=== PATIENT | male | born 1950 | race Native Hawaiian/Other Pacific Islander ===

== ENCOUNTER → 2019-11-22 | Outpatient (CLI) | payer MEDICARE ==
--- NOTE | 2019-11-24 05:18 | CTL ---
EXAMINATION TYPE: CT Low Dose Lung DATE OF EXAM ORDERED: 11/22/2019 HISTORY: 69-year-old male personal tobacco use. Lung cancer screening CT DLP: 135.[address] CTDI: 3.5 mGy Automated exposure control for dose reduction was used. SCREENING VISIT: Baseline COMPARISON: 02/17/2009 TECHNIQUE: Low dose computed tomography scan was performed through the chest. Coronal and sagittal re constructions were performed. Additional coronal MIP reconstruction was generated. CT DIAGNOSTIC QUALITY: Satisfactory FINDINGS: Heart normal size without pericardial effusion. Three-vessel coronary artery calcifications are prese nt. Borderline ectatic ascending aorta 3.5 cm. Ectatic upper descending thoracic aorta at 3.2 cm. Moderat e atherosclerotic arch calcifications within it. 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 There may be severe focal atherosclerotic narrowing at the origin of the left vertebral artery. No thoracic lymphadenopathy by CT size criteria. Mild biapical pleural-parenchymal scarring. Mild centrilobular emphysema. 2 mm right upper lobe pulmonary nodule, axial image 84. 3 mm anterior right midlung pulmonary nodule, axial image 190. Some scattered strandy areas of atelectasis are present. No consolidation or pleural effusion. Moderate atherosclerotic calcifications continue into the visualized upper abdominal aorta. There may be severe narrowing at the SMA origin. Bones: Degenerative changes right sternoclavicular joint. Bridging anterior endplate spondylosis lowe r thoracic spine compatible with DISH. IMPRESSION: 1. Lung RADS 2 - benign; a couple pulmonary nodules measuring up to 3 mm on baseline screening. 2. COPD with mild emphysema. 3. 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 Possible severe atherosclerotic narrowing at the SMA origin as well. 4. CAD. RECOMMENDATION: 1. Continue annual low-dose lung cancer screening CT. 2. Consider vascular surgery referral for further evaluation of the possible areas of arterial narrow ing. FOLLOW UP CT CHEST RECOMMENDATION: [address] LUNG RAD: Lung-Rad 2 Benign Appearance or Behavior
== END | disposition home or self-care (01) ==
LOC: RADCTMAIN 15:21
PROVIDERS: ATTEND Internal Medicine Hematology & Oncology
DX: J43.2 Centrilobular emphysema (principal); R91.8 Other nonspecific abnormal finding of lung field; I25.10 Atherosclerotic heart disease of native coronary artery without angina pectoris; Z87.891 Personal history of nicotine dependence

== ENCOUNTER 2020-04-26 07:49 | Day surgery (SDC) | payer MEDICARE ==
[2020-04-19 15:19] VITALS: BMI 32.0
[~2020-04-26 07:49] MED LIST: BUPIVACAINE (PF) 0.5% 4.5 ML, HYALURONIDASE, HUMAN RECOMB 150 UNIT, LIDOCAINE 2% (PF) 9... IO NR; CYCLOPENTOLATE 1% OPHTH SOLN 2 ML BTL OP NR; LACTATED RINGERS 1,000 ML IV SCH; TOBRA-DEXAMET 0.3-0.1% OPHTH DROPS 2.5 ML BTL OPHTHALMIC NR
[2020-04-26 08:15] VITALS: TEMP 97.3
[2020-04-26 08:26] LABS: Glucose,Whole Blood 118 mg/dL (75-99)
[2020-04-26] MEDS ORDERED: PROPOFOL 10 MG/ML 20 ML VIAL IV ONE (08:54)
[2020-04-26] MEDS ORDERED: EPINEPHrine (PF) 0.3 ML in BALANCED SALT IRRIG SOLN COMB2 500 ML IRRIGATION ONE (09:16)
[2020-04-26] MEDS ORDERED: BALANCED SALT IRRIG SOLN COMB2 15 ML IRRIG.SOLN INTRAOCULA ONE (09:18)
[2020-04-26] MEDS ORDERED: TRYPAN BLUE 0.06% SYRINGE 0.5 ML SYRINGE MISCELLANE ONE (09:18)
[2020-04-26] MEDS ORDERED: DUOVISC KIT (GREEN BOX) INTRAOCULA ONE (09:18)
[2020-04-26] MEDS ORDERED: BUPIVACAINE (PF) 0.5% 30 ML VIAL ONE (09:19)
[2020-04-26] MEDS ORDERED: MOXIFLOXACIN HCL 0.5% DROPS 3 ML BTL RIGHT EYE ONE (09:20)
[2020-04-26] MEDS ORDERED: TIMOLOL 0.5% OPHTH SOLN (PF) 0.2 ML DROPERETTE RIGHT EYE ONE (09:20)
--- NOTE | 2020-04-26 09:37 | P.OP ---
Date of Procedure: 04/26/20 Preoperative Diagnosis: mature cataract Postoperative Diagnosis: same Procedure(s) Performed: PIOL, OD Implants: MX60 21.00 Anesthesia: MAC Surgeon: Beto Vasquez Pathology: none sent Condition: stable Disposition: same day Indications for Procedure: blurry vision Operative Findings: no complications
[2020-04-26 09:44] VITALS: RESP 18
[2020-04-26 10:07] VITALS: BP 152/78; PULSE 67
--- NOTE | 2020-04-27 00:06 | OP ---
OPERATIVE REPORT DATE OF SURGERY: 04/26/2020 PROCEDURE: Phacoemulsification of cataract and intraocular lens implant of the right eye. PREOPERATIVE DIAGNOSIS: Mature cataract. POSTOPERATIVE DIAGNOSIS: Mature cataract. SURGEON: Beto Vasquez MD. ANESTHESIA: Retrobulbar block. ESTIMATED BLOOD LOSS: None, SPECIMEN TAKEN: None. NARRATIVE: After obtaining the appropriate consent, the patient was brought to the operating room. There, he was placed under cardiac monitoring, prepped and draped in the usual sterile manner. He was approached from his right temporal side and at the 11 o'clock position an MVR blade was used to create a paracentesis port through this opening 1% Xylocaine MPF with epinephrine 1:1000 MPF and balanced salt solution in a ratio of 1-2-1 was instilled into the anterior chamber. This was followed by placement of a small air bubble and instillation of Trypan Blue which was left in place for approximately 2 minutes. The Trypan Blue was then irrigated away and the anterior chamber was then stabilized with Viscoat. At the 9 o'clock position, a 2.5 mm keratome was used to create a self-sealing corneal flap incision. Through this opening, a cystotome was introduced to begin a continuous tear capsulorrhexis which was completed using the Utrata forceps. Hydrodissection and hydrodelineation of the lens was accomplished with balanced salt solution. Phacoemulsification lens utilizing phaco chop was accomplished in 1 minute 25.06 seconds at 29% power. Additional lidocaine epinephrine balanced salt solution was injected into the anterior chamber. This was followed by removal of the remaining cortex under irrigation and aspiration along with careful polishing of the posterior capsule in capsule vacuum. Provisc was then used to stabilize the capsular bag and a [employer]ch [employer] Lomb MX60, 21.0 diopter posterior chamber intraocular lens was then injected into the capsular bag without difficulty. The remaining viscoelastic was then removed from in and around the intraocular lens as well as the anterior chamber. The eye was then brought to normal intraocular pressure through the paracentesis port. We then received 2 drops of 0.5% timolol followed by moxifloxacin was then lightly patched and shielded in the usual manner. There were no complications from the procedure. He tolerated the procedure well and was returned to outpatient recovery in good condition. MMODL / IJN: [id number] /
[2020-04-27] MEDS ORDERED: PHENYLEPHRINE 2.5% OPHTH DRP 2ML OP NR (05:00)
== END 2020-04-26 10:13 | disposition home or self-care (01) ==
LOC: OR 07:49
PROVIDERS: ATTEND Ophthalmology
DX: E11.36 Type 2 diabetes mellitus with diabetic cataract (principal); H25.89 Other age-related cataract; E66.9 Obesity, unspecified; F17.210 Nicotine dependence, cigarettes, uncomplicated; Z79.84 Long term (current) use of oral hypoglycemic drugs; Z79.899 Other long term (current) drug therapy; Z98.890 Other specified postprocedural states; Z68.32 Body mass index [BMI] 32.0-32.9, adult
CPT/HCPCS: 66984; C1780; J3470; J2001; J0171; J2704

== ENCOUNTER 2020-05-10 08:38 | Day surgery (SDC) | payer MEDICARE ==
[2020-05-04 11:27] VITALS: BMI 31.5
[~2020-05-10 08:38] MED LIST changes: +LIDOCAINE 1% (10MG/ML) FOR IV START INTRADERMA PRN; +MOXIFLOXACIN HCL 0.5% DROPS 3 ML BTL OP ONE; +TETRACAINE 0.5% OPHTH (PF) DROPS 4 ML BTL OP ONE; +TIMOLOL 0.5% OPHTH DROPS 5 ML BTL OP ONE
[2020-05-10 08:57] VITALS: RESP 16; TEMP 97.5
[2020-05-10] MEDS: CYCLOPENTOLATE 1% OPHTH SOLN 2 ML BTL OP ONE ×3 (09:02→09:08)
[2020-05-10 09:11] LABS: Glucose,Whole Blood 113 mg/dL (75-99)
[2020-05-10] MEDS: PHENYLEPHRINE 2.5% OPHTH DRP 2ML OP NR ×3 (09:11→09:17)
[2020-05-10] MEDS ORDERED: fentaNYL (PF) 50 MCG/ML 2 ML AMP ONE (09:36)
[2020-05-10] MEDS ORDERED: MIDAZOLAM 2 MG/2 ML VIAL ONE (09:36)
[2020-05-10] MEDS ORDERED: PROPOFOL 10 MG/ML 20 ML VIAL IV ONE (09:36)
[2020-05-10] MEDS ORDERED: BALANCED SALT IRRIG SOLN COMB2 15 ML IRRIG.SOLN INTRAOCULA ONE (09:52)
[2020-05-10] MEDS ORDERED: TRYPAN BLUE 0.06% SYRINGE 0.5 ML SYRINGE INTRAOCULA ONE (09:53)
[2020-05-10] MEDS ORDERED: DUOVISC KIT (GREEN BOX) INTRAOCULA ONE (09:53)
[2020-05-10] MEDS ORDERED: BUPIVACAINE (PF) 0.5% 30 ML VIAL INTRAARTIC ONE (09:57)
[2020-05-10] MEDS ORDERED: EPINEPHrine (PF) 0.3 ML in BALANCED SALT IRRIG SOLN COMB2 500 ML IRRIGATION ONE (10:08)
--- NOTE | 2020-05-10 10:37 | P.OP ---
Date of Procedure: 05/10/20 Preoperative Diagnosis: mature cataract, left Postoperative Diagnosis: same Procedure(s) Performed: PIOL, OS Implants: MX60 20.50 Anesthesia: MAC, regional Surgeon: Beto Vasquez Pathology: none sent Condition: stable Disposition: same day Indications for Procedure: bllind Operative Findings: No complications
[2020-05-10 11:15] VITALS: BP 168/81; PULSE 61
--- NOTE | 2020-05-10 22:52 | OP ---
OPERATIVE REPORT DATE OF SURGERY: 05/10/2020. PROCEDURE: Phacoemulsification of cataract of the left eye. PREOPERATIVE DIAGNOSIS: Mature cataract, left eye. POSTOPERATIVE DIAGNOSIS: Mature cataract, left eye. SURGEON: Dr. Beto Vasquez. ANESTHESIA: Retrobulbar with monitored anesthesia care. ESTIMATED BLOOD LOSS: None. SPECIMEN TAKEN: None. NARRATIVE: After obtaining the appropriate consent, the patient was brought to the operating room. There he was placed under cardiac monitoring. Once he was in the proper position on the bed, a retrobulbar anesthetic consisting of Marcaine, lidocaine and hyaluronidase was injected into the retrobulbar space following sufficient anesthesia with the intravenous propofol. A [place] balloon was then placed on the eye and left in place for approximately 5 minutes. After the 5 minutes, the eye was then prepped and draped in the usual sterile manner. He was approached from his left temporal side, and at the 5 o'clock position an MVR blade was used to create a paracentesis port. Through this opening trypan blue was instilled into the anterior chamber and left for approximately 3 minutes. This was then irrigated away and the anterior chamber was then stabilized with Viscoat. At the 3 o'clock position, a 2.5 mm keratome was used to create a self- sealing corneal flap incision. Through this opening, a cystotome was used to begin a continuous tear capsulorrhexis which was then completed using the Utrata forceps. Careful hydrodissection of the lens from the capsular bag was performed in multiple places to assure no damage to the posterior capsule. Once the lens appeared to rotate reasonably well, phacoemulsification utilizing phaco chop was accomplished in 1 minute 9.2 seconds at 21% power. Irrigation aspiration was then introduced into the anterior chamber with the removal of the remaining cortex from the peripheral lens capsule with very careful polishing of the posterior capsule in the capsule vacuum mode. Provisc was then used to stabilize the capsular bag, and a Bausch and Lomb MX 60E 20.5 diopter posterior chamber intraocular lens was then inserted into the capsular bag without difficulty. Viscoelastic was then removed from in and around the intraocular lens as well as the anterior chamber. The eye was brought to normal intraocular pressure through the paracentesis port and the incisions were confirmed watertight. He then received 2 drops of 0.5% timolol followed by 2 drops of moxifloxacin, was then lightly patched and shielded in the usual manner. There were no complications in the procedure. He tolerated the procedure well, was returned to Outpatient Recovery in good condition. SHANTAL / ZAYRAN: [id number] /
[2020-05-11] MEDS ORDERED: PHENYLEPHRINE 2.5% OPHTH DRP 2ML OP NR (05:00)
== END 2020-05-10 11:22 | disposition home or self-care (01) ==
LOC: OR 08:38
PROVIDERS: ATTEND Ophthalmology
DX: E11.36 Type 2 diabetes mellitus with diabetic cataract (principal); H25.812 Combined forms of age-related cataract, left eye; I10 Essential (primary) hypertension; H54.3 Unqualified visual loss, both eyes; Z98.41 Cataract extraction status, right eye; Z96.1 Presence of intraocular lens; F17.210 Nicotine dependence, cigarettes, uncomplicated; E66.9 Obesity, unspecified; Z79.84 Long term (current) use of oral hypoglycemic drugs; Z79.899 Other long term (current) drug therapy; Z98.890 Other specified postprocedural states; Z68.27 Body mass index [BMI] 27.0-27.9, adult
CPT/HCPCS: 66984; C1780; J2250; J3470; J2001; J0171; J3010; J2704

== ENCOUNTER → 2021-06-28 | Outpatient (CLI) | payer MEDICARE ==
--- NOTE | 2021-06-28 15:20 | US ---
LOWER EXTREMITY VENOUS INSUFFICIENCY CLINICAL HISTORY: L97.525 NONPRESSURE CHRONIC ULCER OF OTHER PART OF. SIDE PERFORMED: Bilateral 1) Color flow is present and patency is documented in the following vessels. Common Femoral Vein Deep Femoral Vein Femoral Vein Popliteal Vein Proximal Calf Veins-not visualized Greater Saph Vein Upper Small Saph Vein 2) There is venous reflux noted at the following venous levels: Right: mild reflux seen in CFV and in the femoral vein Left:prominent lymph nodes, no reflux Non-occluding thrombus seen in right femoral vein. Scanning in the bilateral lower extremities. No acute DVT in the left lower extremity. Incomplete com pressibility along the right superficial femoral vein with fairly isoechoic material and diminished c olor flow. No luminal expansion. IMPRESSION: Age-indeterminate partial occlusive thrombus in the right superficial femoral vein. Ordering physician office made aware findings shortly after exam was completed.
== END | disposition home or self-care (01) ==
LOC: RADUSWWP 13:31
PROVIDERS: ATTEND Nurse Practitioner Family
DX: I82.411 Acute embolism and thrombosis of right femoral vein (principal); L97.525 Non-pressure chronic ulcer of other part of left foot with muscle involvement without evidence of necrosis
CPT/HCPCS: 93922; 93970

== ENCOUNTER 2024-02-15 14:16 | Inpatient (IN) | payer MEDICARE ==
--- NOTE | 2024-02-15 14:22 | ED ---
Extremity Problem HPI - General Source: patient, family, RN notes reviewed Mode of arrival: wheelchair Limitations: no limitations <Trina Conroy - Last Filed: 02/15/24 14:20> <Jack Clifton - Last Filed: 02/15/24 19:42> - General Chief complaint: Extremity Problem,Nontraumatic Stated complaint: Foot infection Time Seen by Provider: 02/15/24 14:20 - History of Present Illness Initial comments: Quick Note: This is a 73-year-old male who presents to the emergency department for a left foot infection. Patient states that he had a wound to the left foot a couple of weeks ago. This has since been getting worse and family states that the foot is starting to turn black. States that this is also becoming incre asingly painful and he is having difficulty ambulating. Not taking any antibiotics and he has not been evaluated for this. (Trina Conroy) 73-year-old male with a past medical history significant for type 2 diabetes was previously maintained on metformin 500 mg however notes he stopped 6 months ago when his doctor told him to discontinue it presenting to the ED with complaints of left second toe infection. Patient reports over the past 3 weeks has had intermittent pains and discoloration of his left second toe. He does admit that this may have been going longer as he has been distracted over the past few weeks as his was recently admitted to the hospital secondary to cancer and gallbladder issues. Does note associated intermittent subjective fever and chil ls. No chest pain shortness of breath. No other complaints at this time. (Jack Clifton) - Related Data Home Medications Medication Instructions Recorded Confirmed Ibuprofen [Motrin Ib] 400 mg PO Q6H PRN 02/15/24 02/15/24 Allergies Allergy/AdvReac Type Severity Reaction Status Date / Time No Known Allergies Allergy Verified 02/15/24 17:38 Review of Systems ROS Other: All systems not noted in ROS Statement are negative. <Trina Conroy - Last Filed: 02/15/24 14:20> ROS Other: All systems not noted in ROS Statement are negative. <Jack Clifton - Last Filed: 02/15/24 19:42> ROS Statement: Those systems with pertinent positive or pertinent negative responses have been documented in the HPI. Past Medical History Past Medical History: Diabetes Mellitus Additional Past Medical History / Comment(s): HX. of Diverticultis History of Any Multi-Drug Resistant Organisms: None Reported Past Surgical History: Hernia Repair Additional Past Surgical History / Comment(s): Hernia at age 3. Stomach surgery. Colonoscopy. Past Anesthesia/Blood Transfusion Reactions: No Reported Reaction Smoking Status: Current every day smoker - Past Family History Mother Family Medical History: No Reported History <Trina Conroy - Last Filed: 02/15/24 14:20> General Exam <Trina Conroy - Last Filed: 02/15/24 14:20> General appearance: alert, in no apparent distress Eye exam: Present: normal appearance Neck exam: Present: normal inspection Respiratory exam: Present: normal lung sounds bilaterally Cardiovascular Exam: Present: regular rate GI/Abdominal exam: Present: soft Extremities exam: Present: other (Left second toe appears gangrenous. On the medial aspect there is minimal purulent drainage. The foot does have some edema and does appear warm compared to the other. Minimal erythema.) Neurological exam: Present: alert, oriented X3 Skin exam: Present: warm, dry <Jack Clifton - Last Filed: 02/15/24 19:42> - General Exam Comments Initial Comments: Visual Physical Exam Vital signs reviewed General: Well-appearing, nontoxic, no acute distress. Head: Normocephalic, atraumatic Eyes: PERRLA, EOMI ENT: Airway patent Chest: Nonlabored breathing Skin: No visual rash, normal skin tone Neuro: Alert and oriented 3 Musculoskeletal: No gross abnormalities (Trina Conroy) Course Vital Signs 02/15/24 15:00 Temperature 98.5 F Pulse Rate 84 Respiratory 16 Rate Blood Pressure 137/79 O2 Sat by Pulse 99 Oximetry Medical Decision Making <Trina Conroy - Last Filed: 02/15/24 14:20> - Lab Data Result diagrams: 02/15/24 15:04 02/15/24 15:04 <Jack Clifton - Last Filed: 02/15/24 19:42> - Medical Decision Making I performed the QuickNote portion of this chart. Signed Trina Conroy PA-C. (Trina Conroy) Was pt. sent in by a medical professional or institution (GARRETT Cunningham, PAYER SPECIALIST, urgent care, hospital, or [place] health care facility...) When possible be specific @ -No Did you speak to anyone other than the patient for history (EMS, parent, family, police, friend...)? What history was obtained from this source @ -No Did you review nursing and triage notes (agree or disagree)? Why? @ -I reviewed and agree with nursing and triage notes Were old charts reviewed (outside hosp., previous admission, EMS record, old EKG, old radiological studies, urgent care reports/EKG's, [place] health care facility records)? Report findings @ -No old charts were reviewed Differential Diagnosis (chest pain, altered mental status, abdominal pain women, abdominal pain men, vaginal bleeding, weakness, fever, dyspnea, syncope, headache, dizziness, GI bleed, back pain, seizure, CVA, palpatations, mental health, musculoskeletal)? @ -Differential Musculoskeletal Muscular strain, contusion, ligament sprain, fracture, arthritis, septic arthritis, bursitis, cellulitis, muscle spasm, nerve compression, DVT, arterial occlusion, herpes zoster, electrolyte abnormality, tumor.... This is not meant to be in all inclusive list EKG interpreted by me (3pts min.). @ -None X-rays interpreted by me (1pt min.). @ -X-ray of the foot interpreted me which revealed no evidence of acute finding CT interpreted by me (1pt min.). @ -None done U/S interpreted by me (1pt. min.). @ -None done What testing was considered but not performed or refused? (CT, X-rays, U/S, labs)? Why? @ -None What meds were considered but not given or refused? Why? @ -None Did you discuss the management of the patient with other professionals (professionals i.e. GARRETT Cunningham, PAYER SPECIALIST, lab, RT, psych nurse, professor of social work, quality analyst/technical writer, teacher, traffic officer, binder caser)? Give summary @ -Case discussed with Tiffanie who accepts admission under [facility]. Was smoking cessation discussed for >3mins.? @ -No Was critical care preformed (if so, how long)? @ -No Were there social determinants of health that impacted care today? How? (Homelessness, low income, unemployed, alcoholism, drug addiction, transportation, low edu. Level, literacy, decrease access to med. care, detention, rehab)? @ -No Was there de-escalation of care discussed even if they declined (Discuss DNR or withdrawal of care, Hospice)? DNR status @ -No What co-morbidities impacted this encounter? (DM, HTN, Smoking, COPD, CAD, Cancer, CVA, ARF, Chemo, Hep., AIDS, mental health diagnosis, sleep apnea, morbid obesity)? @ -Type 2 diabetes Was patient admitted / discharged? Hospital course, mention meds given and route, prescriptions, significant lab abnormalities, going to OR and other pertinent info. @ -Admission 73-year-old male presenting to the ED with complaints of left second toe infection. On exam, does appear gangrenous. Laboratory studies reviewed. CBC unremarkable. Chemistry panel significant for an elevated blood glucose at 283. CRP elevated at 3.5. Lactic acid 2. Wound cultures obtained. Blood cultures obtained as well. Patient will be started on IV antibiotics and admitted with consult to vascular surgery. Plan of care discussed with patient and family who are in agreement. Undiagnosed new problem with uncertain prognosis? @ -No Drug Therapy requiring intensive monitoring for toxicity (Heparin, Nitro, Insulin, Cardizem)? @ -No Were any procedures done? @ -No Diagnosis/symptom? @ -Left second toe infection Acute, or Chronic, or Acute on Chronic? @ -Acute Uncomplicated (without systemic symptoms) or Complicated (systemic symptoms)? @ -Complicated Side effects of treatment? @ -No Exacerbation, Progression, or Severe Exacerbation? @ -No Poses a threat to life or bodily function? How? (Chest pain, [place], [place], pneumonia, PE, COPD, DKA, ARF, appy, cholecystitis, CVA, Diverticulitis, Homicidal, Suicidal, threat to staff... and all critical care pts) @ -Yes (Jack Clifton) - Lab Data Lab Results 02/15/24 02/15/24 02/15/24 Range/Units 15:04 15:04 15:04 WBC 10.6 (3.8-10.6) k/uL RBC 5.19 (4.30-5.90) m/uL Hgb 16.8 (13.0-17.5) gm/dL Hct 51.9 (39.0-53.0) % MCV 100.0 (80.0-100.0) fL MCH 32.3 (25.0-35.0) pg MCHC 32.3 (31.0-37.0) g/dL RDW 11.9 (11.5-15.5) % Plt Count 217 (150-450) k/uL MPV 10.0 Neutrophils % 75 % Lymphocytes % 17 % Monocytes % 6 % Eosinophils % 1 % Basophils % 1 % Neutrophils # 7.9 H (1.3-7.7) k/uL Lymphocytes # 1.8 (1.0-4.8) k/uL Monocytes # 0.6 (0-1.0) k/uL Eosinophils # 0.1 (0-0.7) k/uL Basophils # 0.1 (0-0.2) k/uL Sodium 135 L (137-145) mmol/L Potassium 4.4 (3.5-5.1) mmol/L Chloride 102 (98-107) mmol/L Carbon Dioxide 26 (22-30) mmol/L Anion Gap 7 mmol/L BUN 15 (9-20) mg/dL Creatinine 0.71 (0.66-1.25) mg/dL Est GFR (CKD-EPI)AfAm >90 (>60 ml/min/1.73 sqM) Est GFR (CKD-EPI)NonAf >90 (>60 ml/min/1.73 sqM) Glucose 283 H (74-99) mg/dL Plasma Lactic Acid Usama 2.0 (0.7-2.0) mmol/L Calcium 9.1 (8.4-10.2) mg/dL Total Bilirubin 1.0 (0.2-1.3) mg/dL AST 23 (17-59) U/L ALT 19 (4-49) U/L Alkaline Phosphatase 116 (38-126) U/L C-Reactive Protein 3.5 H (<1.0) mg/dL Total Protein 7.4 (6.3-8.2) g/dL Albumin 4.0 (3.5-5.0) g/dL Disposition <Trina Conroy - Last Filed: 02/15/24 14:20> Time of Disposition: 19:00 <Jack Clifton - Last Filed: 02/15/24 19:42> Clinical Impression: Toe infection Disposition: ADMITTED IP TO THIS HOSP Condition: Good Referrals: Sudheer Lubin MD [Primary Care Provider] - 1-2 days
--- NOTE | 2024-02-15 16:01 | XR ---
EXAMINATION TYPE: XR foot complete LT DATE OF EXAM: 02/15/2024 3:41 PM CLINICAL INDICATION:Male, 73 years old with history of Infection; [facility] COMPARISON: None TECHNIQUE: XR foot complete LT examined in the AP, oblique, and lateral projections. FINDINGS: Soft tissue swelling throughout the foot most pronounced on the dorsal aspect on lateral vi ew. No evidence for osseous erosion. No evidence of any acute osseous pathology. Atherosclerosis of t he arterial vasculature. IMPRESSION: 1. Soft tissue swelling without evidence of acute fracture. No evidence for osseous erosion. 2. Multifocal degeneration changes throughout the joints of the foot.
[2024-02-15 17:04] LABS: Basophils # (A) 0.1 k/uL (0-0.2); Basophils % (A) 1 %; Eosinophils # (A) 0.1 k/uL (0-0.7); Eosinophils % (A) 1 %; HCT 51.9 % (39.0-53.0); HGB 16.8 gm/dL (13.0-17.5); Lymphocytes # (A) 1.8 k/uL (1.0-4.8); Lymphocytes % (A) 17 %; MCH 32.3 pg (25.0-35.0); MCHC 32.3 g/dL (31.0-37.0); Monocytes # (A) 0.6 k/uL (0-1.0); Monocytes % (A) 6 %; Neutrophils # (A) 7.9 k/uL (1.3-7.7); Neutrophils % (A) 75 %; Platelet Count 217 k/uL (150-450); RBC 5.19 m/uL (4.30-5.90); RDW 11.9 % (11.5-15.5); WBC 10.6 k/uL (3.8-10.6)
[2024-02-15 17:18] LABS: ALT 19 U/L (4-49); AST 23 U/L (17-59); African American GFR (CKD) >90 (>60 ml/min/1.73 sqM); Alkaline Phosphatase 116 U/L (38-126); Anion Gap 7 mmol/L; Blood Urea Nitrogen 15 mg/dL (9-20); C Reactive Protein 3.5 mg/dL (<1.0); Calcium 9.1 mg/dL (8.4-10.2); Carbon Dioxide 26 mmol/L (22-30); Chloride 102 mmol/L (98-107); Glucose 283 mg/dL (74-99); Non-African American GFR(CKD) >90 (>60 ml/min/1.73 sqM); Potassium 4.4 mmol/L (3.5-5.1); Sodium 135 mmol/L (137-145); Total Protein 7.4 g/dL (6.3-8.2)
[2024-02-15] MEDS ORDERED: VANCOMYCIN IV PER PHARMACY 1 EACH MISC MISCELLANE PRN (19:29)
[2024-02-15] MEDS ORDERED: NALOXONE 0.4 MG/ML 1 ML VIAL IV PRN (19:42)
[2024-02-15] MEDS ORDERED: ACETAMINOPHEN TAB 325 MG TAB PO PRN (19:42)
[2024-02-15] MEDS ORDERED: DEXTROSE 50% SYRINGE 50 ML IVP PRN ×2 (19:44)
[2024-02-15 20:50] LABS: INR 1.1 (<1.2); Partial Thromboplastin Time 25.2 sec (22.0-30.0); Prothrombin Time 11.6 sec (10.0-12.5)
[2024-02-15] MEDS: VANCOMYCIN 1,500 MG in SODIUM CHLORIDE 0.9% 500 ML 500 ML IVPB ONE (21:27)
[2024-02-15] MEDS: SODIUM CHLORIDE 0.9% 1,000 ML IV SCH (21:28)
[2024-02-15 21:40] LABS: Glucose,Whole Blood 227 mg/dL (70-110)
[2024-02-15] MEDS: INSULIN ASPART (NovoLOG) 100 UNIT/ML VIAL SQ SCH (21:42)
[2024-02-15 23:12] LABS: Erythrocyte Sedimentation Rate 64 mm/Hr (0-20)
[2024-02-16] MEDS: PIPERACILLIN-TAZOBACTAM 3.375 GM in SODIUM CHLORIDE 0.9% 100 ML IVPB SCH ×2 (02:16→08:20)
[2024-02-16 07:03] LABS: Glucose,Whole Blood 225 mg/dL (70-110)
[2024-02-16] MEDS ORDERED: DEXTROSE 50% SYRINGE 50 ML IVP PRN ×2 (10:17)
--- NOTE | 2024-02-16 10:48 | P.GSCN ---
History of Present Illness Consult date: 02/16/24 Reason for Consult: Left second toe infection Requesting physician: Jack Clifton History of present illness: This is a pleasant 73-year-old male who presented to the emergency department yesterday evening with concerns for infected left second toe. He has a past medical history including type 2 diabetes mellitus and nicotine dependence. He states that he noticed a wound on his second toe about 2 to 3 weeks ago and it has progressively gotten worse and turned black. There is drainage and odor. He denies any fevers, chills, or bodyaches. Denies any shortness of breath, chest pain or abdominal pain. He has been afebrile. He has been started on IV antibiotics. He denies any injury to the toe that he recalls. No previous history of diabetic ulcers. He states that he normally walks about 2 miles a day without any pain in his lower extremities. He is sad quite a bit of pain with the left toe and has not been able to walk easily for the last few days. Review of Systems A 14 point review systems was completed all pertinent positives and negatives as stated in the HPI. Past Medical History Past Medical History: Diabetes Mellitus Additional Past Medical History / Comment(s): HX. of Diverticultis History of Any Multi-Drug Resistant Organisms: None Reported Past Surgical History: Hernia Repair Additional Past Surgical History / Comment(s): Hernia at age 3. Stomach surgery. Colonoscopy. Past Anesthesia/Blood Transfusion Reactions: No Reported Reaction Past Psychological History: No Psychological Hx Reported Smoking Status: Current every day smoker Past Alcohol Use History: None Reported Additional Past Alcohol Use History / Comment(s): Smokes approx. 1 1/2ppd. Past Drug Use History: None Reported - Past Family History Mother Family Medical History: No Reported History Medications and Allergies Home Medications Medication Instructions Recorded Confirmed Type Ibuprofen [Motrin Ib] 400 mg PO Q6H PRN 02/15/24 02/15/24 History Allergies Allergy/AdvReac Type Severity Reaction Status Date / Time No Known Allergies Allergy Verified 02/15/24 17:38 Surgical - Exam Vital Signs Temp Pulse Resp BP Pulse Ox 98.5 F 84 16 137/79 99 02/15/24 15:00 02/15/24 15:00 02/15/24 15:00 02/15/24 15:00 02/15/24 15:00 General appearance: The patient is alert, oriented, appears in no acute distress. HET: Head is normocephalic and atraumatic. Pupils are equal and reactive. Neck: Supple. Heart: Regular. Lungs: Equal expansion, normal respiratory effort. Abdomen: Soft, nontender, nondistended. Extremities: Palpable bilateral femoral pulses. Left foot with swelling, second toe with gangrene, foul odor, serosanguineous drainage. Difficult to palpate DP pulses. Bilateral lower extremities warm to the touch with good capillary refill. Multiphasic DP and PT signals. Neurological: No focal deficits. Strength and sensation are grossly intact. Results - Labs 02/15/24 15:04 02/15/24 15:04 Abnormal Lab Results - Last 24 Hours (Table) 02/15/24 02/15/24 02/15/24 Range/Units 15:04 15:04 21:37 Neutrophils # 7.9 H (1.3-7.7) k/uL ESR 64 H (0-20) mm/Hr Sodium 135 L (137-145) mmol/L Glucose 283 H (74-99) mg/dL POC Glucose (mg/dL) 227 H (70-110) mg/dL C-Reactive Protein 3.5 H (<1.0) mg/dL 02/16/24 Range/Units 07:02 Neutrophils # (1.3-7.7) k/uL ESR (0-20) mm/Hr Sodium (137-145) mmol/L Glucose (74-99) mg/dL POC Glucose (mg/dL) 225 H (70-110) mg/dL C-Reactive Protein (<1.0) mg/dL Diabetes panel 02/15/24 Range/Units 15:04 Sodium 135 L (137-145) mmol/L Potassium 4.4 (3.5-5.1) mmol/L Chloride 102 (98-107) mmol/L Carbon Dioxide 26 (22-30) mmol/L BUN 15 (9-20) mg/dL Creatinine 0.71 (0.66-1.25) mg/dL Glucose 283 H (74-99) mg/dL Calcium 9.1 (8.4-10.2) mg/dL AST 23 (17-59) U/L ALT 19 (4-49) U/L Alkaline Phosphatase 116 (38-126) U/L Total Protein 7.4 (6.3-8.2) g/dL Albumin 4.0 (3.5-5.0) g/dL Calcium panel 02/15/24 Range/Units 15:04 Calcium 9.1 (8.4-10.2) mg/dL Albumin 4.0 (3.5-5.0) g/dL Pituitary panel 02/15/24 Range/Units 15:04 Sodium 135 L (137-145) mmol/L Potassium 4.4 (3.5-5.1) mmol/L Chloride 102 (98-107) mmol/L Carbon Dioxide 26 (22-30) mmol/L BUN 15 (9-20) mg/dL Creatinine 0.71 (0.66-1.25) mg/dL Glucose 283 H (74-99) mg/dL Calcium 9.1 (8.4-10.2) mg/dL Adrenal panel 02/15/24 Range/Units 15:04 Sodium 135 L (137-145) mmol/L Potassium 4.4 (3.5-5.1) mmol/L Chloride 102 (98-107) mmol/L Carbon Dioxide 26 (22-30) mmol/L BUN 15 (9-20) mg/dL Creatinine 0.71 (0.66-1.25) mg/dL Glucose 283 H (74-99) mg/dL Calcium 9.1 (8.4-10.2) mg/dL Total Bilirubin 1.0 (0.2-1.3) mg/dL AST 23 (17-59) U/L ALT 19 (4-49) U/L Alkaline Phosphatase 116 (38-126) U/L Total Protein 7.4 (6.3-8.2) g/dL Albumin 4.0 (3.5-5.0) g/dL - Imaging Comments: Left foot x-ray reports soft tissue swelling without evidence of acute fracture no evidence for osseous erosion. Multi focal degeneration changes throughout the joints of the foot. Assessment and Plan Assessment: 1. Gangrene left second toe 2. Diabetes mellitus Plan: 1. Continue IV antibiotics 2. N.p.o. after midnight 3. Plan for left second toe amputation tomorrow 4. Arterial ultrasound ordered bilateral lower extremities Thank you for this consultation, we will continue to follow. The impression and plan of care has been dictated as directed. Dr. June I performed a history and examination of this patient, discussed the same with the dictator. I agree with the dictator's note ,documented as a scribe. Any additional findings or plans will be noted.
[2024-02-16 11:45] LABS: Glucose,Whole Blood 271 mg/dL (70-110)
[2024-02-16 11:52] LABS: African American GFR (CKD) >90 (>60 ml/min/1.73 sqM); Anion Gap 4 mmol/L; Blood Urea Nitrogen 12 mg/dL (9-20); Calcium 8.6 mg/dL (8.4-10.2); Carbon Dioxide 24 mmol/L (22-30); Chloride 105 mmol/L (98-107); Glucose 263 mg/dL (74-99); Non-African American GFR(CKD) >90 (>60 ml/min/1.73 sqM); Potassium 4.4 mmol/L (3.5-5.1); Sodium 133 mmol/L (137-145)
[2024-02-16] MEDS: VANCOMYCIN 1,500 MG in SODIUM CHLORIDE 0.9% 500 ML 500 ML IVPB SCH (11:55)
[2024-02-16] MEDS ORDERED: INSULIN ASPART (NovoLOG) 100 UNIT/ML VIAL SQ ONE (12:30)
--- NOTE | 2024-02-16 13:26 | P.HPIM ---
History of Present Illness H&P Date: 02/16/24 History of present illness; patient heydi 73-year-old gentleman with past medical history significant for diabetes mellitus not on any medication brought to the ER because of left foot infection. Patient stated that he was all right 2 weeks ago when he sustained an injury to his left foot. Patient noticed there was a wound on his second toe, patient did not see any initial medical health as he wa s under a lot of stress at home because of his being sick. Patient noticed that over the last few weeks his foot started turning black. Patient also having fevers and chills. Patient was having a lot of pain in his left foot as well. Because of the symptoms, patient came to the ER Initial lab work done in the ER showed WBC 10.6, hemoglobin 16.8, platelet count 217, sodium 135, potassium 4.4, BUN 15, creatinine 0.7, glucose 283, HbA1c level of 11.9 lactate 2, calcium 9.1, bilirubin 1, AST 23, ALT 19, CRP 3.5 X-ray left foot done showed soft tissue swelling without evidence of acute fra cture. Patient admitted to internal medicine service REVIEW OF SYSTEMS: CONSTITUTIONAL: As mentioned above HEENT: No recent visual problems or hearing problems. Denied any sore throat. CARDIOVASCULAR: No chest pain, orthopnea, PND, no palpitations, no syncope. PULMONARY: No shortness of breath, no cough, no hemoptysis. GASTROINTESTINAL: No diarrhea, no nausea, no vomiting, no abdominal pain. NEUROLOGICAL: No headaches, no weakness, no numbness. HEMATOLOGICAL: Denies any bleeding or petechiae. GENITOURINARY: Denies any burning micturition, frequency, or urgency. MUSCULOSKELETAL/RHEUMATOLOGICAL: As mentioned above ENDOCRINE: Denies any polyuria or polydipsia. The rest of the 14-point review of systems is negative. PHYSICAL EXAMINATION: GENERAL: The patient is alert and oriented x3, not in any acute distress. Well developed, well nourished. HEENT: Pupils are round and equally reacting to light. EOMI. No scleral icterus. No conjunctival pallor. Normocephalic, atraumatic. No pharyngeal erythema. No thyromegaly. CARDIOVASCULAR: S1 and S2 present. No murmurs, rubs, or gallops. PULMONARY: Chest is clear to auscultation, no wheezing or crackles. ABDOMEN: Soft, nontender, nondistended, normoactive bowel sounds. No palpable organomegaly. MUSCULOSKELETAL: Left foot second toe blackening, surrounding erythema seen EXTREMITIES: No cyanosis, clubbing, or pedal edema. NEUROLOGICAL: Gross neurological examination did not reveal any focal deficits. SKIN: No rashes. Assessment and plan Cellulitis of left foot Gangrene of left second toe Poorly controlled diabetes mellitus with an HbA1c of 11.9 Monitor vital signs Monitor CBC Monitor CMP Continue telemetry monitoring Blood cultures Ordered wound cultures continue IV fluids Start broad-spectrum antibiotic with IV Zosyn and vancomycin Monitor blood sugar levels, start sliding scale insulin. Will start patient on Levemir 5 units twice a day, adjust dose as needed Consult vascular surgery Consult ID Labs and medication were reviewed.. Continue same treatment. Continue with symptomatic treatment. Resume home medication. Monitor labs and vitals. DVT and GI prophylaxis. Further recommendations as per clinical course of the patient Dictation was produced using [employer] dictation software. please excuse any grammatical, word or spelling errors. Past Medical History Past Medical History: Diabetes Mellitus Additional Past Medical History / Comment(s): HX. of Diverticultis History of Any Multi-Drug Resistant Organisms: None Reported Past Surgical History: Hernia Repair Additional Past Surgical History / Comment(s): Hernia at age 3. Stomach surgery. Colonoscopy. Past Anesthesia/Blood Transfusion Reactions: No Reported Reaction Past Psychological History: No Psychological Hx Reported Smoking Status: Current every day smoker Past Alcohol Use History: None Reported Additional Past Alcohol Use History / Comment(s): Smokes approx. 1 1/2ppd. Past Drug Use History: None Reported - Past Family History Mother Family Medical History: No Reported History Medications and Allergies Home Medications Medication Instructions Recorded Confirmed Type Ibuprofen [Motrin Ib] 400 mg PO Q6H PRN 02/15/24 02/15/24 History Allergies Allergy/AdvReac Type Severity Reaction Status Date / Time No Known Allergies Allergy Verified 02/15/24 17:38 Physical Exam Vitals: Vital Signs Temp Pulse Pulse Resp BP BP Pulse Ox 02/16/24 07:01 98.1 F 74 16 137/73 98 02/16/24 02:00 98.3 F 83 18 160/88 98 02/16/24 00:21 89 18 143/86 99 02/15/24 21:39 98.8 F 80 16 138/86 97 02/15/24 20:32 98.2 F 87 14 132/79 96 02/15/24 15:00 98.5 F 84 16 137/79 99 Intake and Output 02/15/24 02/16/24 02/16/24 22:59 06:59 14:59 Intake Total 240 Balance 240 Intake: Oral 240 Other: Voiding Method Toilet # Voids 2 Weight 79.379 kg 79.379 kg Results CBC & Chem 7: 02/15/24 15:04 02/16/24 10:59 Labs: Abnormal Lab Results - Last 24 Hours (Table) 02/15/24 02/15/24 02/15/24 Range/Units 15:04 15:04 20:24 Neutrophils # 7.9 H (1.3-7.7) k/uL ESR 64 H (0-20) mm/Hr Sodium 135 L (137-145) mmol/L Glucose 283 H (74-99) mg/dL POC Glucose (mg/dL) (70-110) mg/dL Hemoglobin A1c 11.9 H (<=6.0) % C-Reactive Protein 3.5 H (<1.0) mg/dL 02/15/24 02/16/24 Range/Units 21:37 07:02 Neutrophils # (1.3-7.7) k/uL ESR (0-20) mm/Hr Sodium (137-145) mmol/L Glucose (74-99) mg/dL POC Glucose (mg/dL) 227 H 225 H (70-110) mg/dL Hemoglobin A1c (<=6.0) % C-Reactive Protein (<1.0) mg/dL Thrombosis Risk Factor Assmnt - Choose All That Apply Any of the Below Risk Factors Present?: No Each Risk Factor Represents 2 Points: Age 61-74 years Thrombosis Risk Factor Assessment Total Risk Factor Score: 2 Thrombosis Risk Factor Assessment Level: Low Risk
[2024-02-16 16:03] VITALS: BMI 25.8
[2024-02-16 17:21] LABS: Glucose,Whole Blood 287 mg/dL (70-110)
--- NOTE | 2024-02-16 19:29 | US ---
EXAMINATION TYPE: US arterial LE single level DATE OF EXAM: 02/16/2024 11:27 AM CLINICAL INDICATION: Male, 73 years old with history of Gangrene toe, nonpalpable DP pulses; Gangrene left 2nd toe. History of: Smoker: Current Smoker Hypertension: Yes Diabetic: Yes Hyperlipidemia: No TIA/CVA: No Previous Vascular Surgery: No CAD: No CT: No Vascular Ulcers: No Claudication: No Gangrene: Right Doppler Waveforms: Right: Biphasic and monophasic Left: Biphasic and monophasic Right Brachial Pressure: 141 Left Brachial Pressure: Deferred due to IV Ankle-Brachial Indices: Right: 1.0 Left: Unable to obtain due to CNO PT and DP (Vessel hardening > 1.4; Normal 0.9 - 1.4, Moderate 0.7 - 0.9, Severe 0.5-0.7) Toe Brachial Indices: Right: 0.3 Left: 0.1 IMPRESSION: Toe brachial indices suggestive of severe bilateral peripheral vascular disease. Right ankle-brachial index within normal limits. Noncompressible left vessels.
[2024-02-16 20:05] LABS: Glucose,Whole Blood 358 mg/dL (70-110)
[2024-02-16] MEDS: INSULIN DETEMIR (LEVEMIR) 100 UNIT/ML SYR SQ SCH (20:14)
[2024-02-17] MEDS: AMPICILLIN-SULBACTAM 3 GM in SODIUM CHLORIDE 0.9% 100 ML IVPB SCH (00:03)
--- NOTE | 2024-02-17 06:51 | P.CONS ---
History of Present Illness - Reason for Consult Consult date: 02/16/24 Abscess of the left foot Requesting physician: Jett Elmore - Chief Complaint Left second toe discoloration and drainage x weeks - History of Present Illness Patient is a 73-year-old male with past medical significant for diabetes mellitus diverticulitis current everyday smoker presenting to the hospital yesterday afternoon for left second toe infection patient mention he is dealing with the left second toe ulcer for almost 4 weeks. Patient has been trying to heal itself at home however the patient noticed to have worsening swelling redness foul-smelling drainage and discoloration of the left second toe for the patient to present to the hospital patient denies high-grade fever or any chills has been complaining of pain to the left second toe to be throbbing moderate to severe intensity he was some radiation to the left dorsal aspect of the left foot with associated swelling redness and some foul-smelling drainage patient on presentation to the hospital was afebrile he was not tachycardic hypotensive or hypoxic patient did have white count of 10.6 creatinine 0.71 liver enzymes are normal CRP is 3.5 liver blood cultures were obtained patient was placed on vancomycin and Zosyn infectious disease was consulted for further management of antibiotic therapy patient did have x-ray of the left foot which did shows soft tissue swelling without evidence for acute fracture no evidence of any bony erosion multifocal degenerative changes Review of Systems Positive point and negatives has been mentioned in the HPI, complete review of systems was performed and all other systems are negative Past Medical History Past Medical History: Diabetes Mellitus Additional Past Medical History / Comment(s): HX. of Diverticultis History of Any Multi-Drug Resistant Organisms: None Reported Past Surgical History: Hernia Repair Additional Past Surgical History / Comment(s): Hernia at age 3. Stomach surgery. Colonoscopy. Past Anesthesia/Blood Transfusion Reactions: No Reported Reaction Past Psychological History: No Psychological Hx Reported Smoking Status: Current every day smoker Past Alcohol Use History: None Reported Additional Past Alcohol Use History / Comment(s): Smokes approx. 1 1/2ppd. Past Drug Use History: None Reported - Past Family History Mother Family Medical History: No Reported History Medications and Allergies Home Medications Medication Instructions Recorded Confirmed Type Ibuprofen [Motrin Ib] 400 mg PO Q6H PRN 02/15/24 02/15/24 History Insulin Detemir (Levemir) [Levemir] 5 unit SQ BID@0700,2100 #10 ml 02/19/24 Rx ceFAZolin [Kefzol] 2 gm IVP Q8HR #42 each 02/19/24 Rx Allergies Allergy/AdvReac Type Severity Reaction Status Date / Time No Known Allergies Allergy Verified 02/15/24 17:38 Physical Exam Vitals: Vital Signs Temp Pulse Pulse Resp BP BP Pulse Ox 02/16/24 12:41 98.2 F 68 16 147/85 99 02/16/24 07:01 98.1 F 74 16 137/73 98 02/16/24 02:00 98.3 F 83 18 160/88 98 02/16/24 00:21 89 18 143/86 99 02/15/24 21:39 98.8 F 80 16 138/86 97 02/15/24 20:32 98.2 F 87 14 132/79 96 Intake and Output 02/16/24 02/16/24 02/16/24 06:59 14:59 22:59 Intake Total 240 Balance 240 Intake: Oral 240 Other: Voiding Method Toilet # Voids 2 1 # Bowel Movements 1 Weight 79.379 kg 79.379 kg GENERAL DESCRIPTION: Elderly male lying in bed, no distress. No tachypnea or accessory muscle of respiration use. HEENT: Shows Pallor , no scleral icterus. Oral mucous membrane is dry. No pharyngeal erythema or thrush NECK: Trachea central, no thyromegaly. LUNGS: Unlabored breathing. Clear to auscultation anteriorly. No wheeze or crackle. HEART: S1, S2, regular rate and rhythm. No loud murmur ABDOMEN: Soft, no tenderness , guarding or rigidity, no organomegaly EXTREMITIES: No edema of feet. Left second toe necrotic with associated swelling redness and foul-smelling drainage SKIN: No rash, no masses palpable. NEUROLOGICAL: The patient is awake, alert, oriented x3, mood and affect normal. Results CBC & Chem 7: 02/18/24 07:34 02/18/24 07:34 Labs: Abnormal Lab Results - Last 24 Hours (Table) 02/15/24 02/15/24 02/15/24 Range/Units 15:04 15:04 20:24 Neutrophils # 7.9 H (1.3-7.7) k/uL ESR 64 H (0-20) mm/Hr Sodium 135 L (137-145) mmol/L Glucose 283 H (74-99) mg/dL POC Glucose (mg/dL) (70-110) mg/dL Hemoglobin A1c 11.9 H (<=6.0) % C-Reactive Protein 3.5 H (<1.0) mg/dL 02/15/24 02/16/24 02/16/24 Range/Units 21:37 07:02 10:59 Neutrophils # (1.3-7.7) k/uL ESR (0-20) mm/Hr Sodium 133 L (137-145) mmol/L Glucose 263 H (74-99) mg/dL POC Glucose (mg/dL) 227 H 225 H (70-110) mg/dL Hemoglobin A1c (<=6.0) % C-Reactive Protein (<1.0) mg/dL 02/16/24 Range/Units 11:43 Neutrophils # (1.3-7.7) k/uL ESR (0-20) mm/Hr Sodium (137-145) mmol/L Glucose (74-99) mg/dL POC Glucose (mg/dL) 271 H (70-110) mg/dL Hemoglobin A1c (<=6.0) % C-Reactive Protein (<1.0) mg/dL Assessment and Plan (1) Diabetic infection of left foot Status: Acute Code(s): E11.628 - TYPE 2 DIABETES MELLITUS WITH OTHER SKIN COMPLICATIONS; L08.9 - LOCAL INFECTION OF THE SKIN AND SUBCUTANEOUS TISSUE, UNSP SNOMED Code(s): 82011234 (2) Gangrene of toe of left foot Status: Acute Code(s): I96 - GANGRENE, NOT ELSEWHERE CLASSIFIED SNOMED Code(s): 92901748959451138 (3) Type 2 diabetes mellitus with foot ulcer Status: Acute Code(s): E11.621 - TYPE 2 DIABETES MELLITUS WITH FOOT ULCER; L97.509 - NON-PRESSURE CHRONIC ULCER OTH PRT UNSP FOOT W UNSP SEVERITY SNOMED Code(s): 921359134 Plan: 1patient presented to hospital with extensive left second toe diabetic foot infection that has been going on for almost 4 weeks before presentation to the hospital with a foul-smelling drainage will need to cover for the polymicrobial mariano usually associated with infection in this patient has not been on any antibiotic in the recent past could be MSSA strep for related mariano 2-vancomycin pharmacy to dose target trough of 15 while watching kidney function and Vanco trough closely however due to risk of nephrotoxicity switch Zosyn to Unasyn 3-possible amputation per vascular surgery tomorrow, deep culture should be obtained We will follow on clinical condition and cultures to further adjust medication if needed Thank you for this consultation we will follow the patient along with you Dictation was produced using [employer] dictation software. please excuse any gramm atical, word or spelling errors. Time with Patient: Greater than 30
[2024-02-17 07:03] LABS: Glucose,Whole Blood 192 mg/dL (70-110)
[2024-02-17 09:19] LABS: African American GFR (CKD) >90 (>60 ml/min/1.73 sqM); Non-African American GFR(CKD) >90 (>60 ml/min/1.73 sqM)
[2024-02-17] MEDS: IV FLUID CONTINUATION 1,000 ML IV ONE (10:56)
[2024-02-17 11:19] LABS: Glucose,Whole Blood 188 mg/dL (70-110)
[2024-02-17] MEDS: LACTATED RINGERS 1,000 ML BAG IV STA (11:20)
[2024-02-17] MEDS: ONDANSETRON 4 MG/2 ML VIAL IVP PRN (11:21)
[2024-02-17] MEDS ORDERED: PROPOFOL 10 MG/ML 20 ML VIAL IV ONE (11:40)
[2024-02-17] MEDS ORDERED: fentaNYL (PF) 50 MCG/ML 2 ML AMP ONE (11:40)
[2024-02-17] MEDS ORDERED: MIDAZOLAM 2 MG/2 ML VIAL ONE (11:40)
[2024-02-17] MEDS ORDERED: KETAMINE HCL IN 0.9 % NACL 50 MG/5 ML SYRINGE ONE (11:40)
[2024-02-17] MEDS: LIDOCAINE 1% INJ 10MG/ML (20 ML MDV) SQ ONE ×2 (12:09)
--- NOTE | 2024-02-17 12:17 | P.PN ---
Subjective Progress Note Date: 02/17/24 patient heydi 73-year-old gentleman with past medical history significant for diabetes mellitus not on any medication brought to the ER because of left foot infection. Patient stated that he was all right 2 weeks ago when he sustained an injury to his left foot. Patient noticed there was a wound on his second toe, patient did not see any initial medical health as he was under a lot of stress at home because of his being sick. Patient noticed that over the last few weeks his foot started turning black. Patient also having fevers and chills. Patient was having a lot of pain in his left foot as well. Because of the symptoms, patient came to the ER Initial lab work done in the ER showed WBC 10.6, hemoglobin 16.8, platelet count 217, sodium 135, potassium 4.4, BUN 15, creatinine 0.7, glucose 283, HbA1c level of 11.9 lactate 2, calcium 9.1, bilirubin 1, AST 23, ALT 19, CRP 3.5 X-ray left foot done showed soft tissue swelling without evidence of acute fracture. Patient admitted to internal medicine service 02/16. Patient seen and examined. Currently n.p.o., going for surgery today. Wi [address] at the bedside, discussed with them in detail and the need for him to be more compliant with his blood glucose control. REVIEW OF SYSTEMS: CONSTITUTIONAL: No fever, no malaise,. CARDIOVASCULAR: No chest pain, no palpitations, no syncope. PULMONARY: No shortness of breath, no cough, GASTROINTESTINAL: No diarrhea, no nausea, no vomiting, no abdominal pain. NEUROLOGICAL: No headaches, no weakness, PHYSICAL EXAMINATION: GENERAL: The patient is alert and oriented x3, not in any acute distress. Well developed, well nourished. HEENT: Pupils are round and equally reacting to light. EOMI. No scleral icterus. No conjunctival pallor. Normocephalic, atraumatic. No pharyngeal erythema. No t hyromegaly. CARDIOVASCULAR: S1 and S2 present. No murmurs, rubs, or gallops. PULMONARY: Chest is clear to auscultation, no wheezing or crackles. ABDOMEN: Soft, nontender, nondistended, normoactive bowel sounds. No palpable organomegaly. MUSCULOSKELETAL: No joint swelling or deformity. EXTREMITIES: No cyanosis, clubbing, or pedal edema. NEUROLOGICAL: Gross neurological examination did not reveal any focal deficits. SKIN: No rashes. Assessment and plan GENERAL: The patient is alert and oriented x3, not in any acute distress. Well developed, well nourished. HEENT: Pupils are round and equally reacting to light. EOMI. No scleral icterus. No conjunctival pallor. Normocephalic, atraumatic. No pharyngeal erythema. No thyromegaly. CARDIOVASCULAR: S1 and S2 present. No murmurs, rubs, or gallops. PULMONARY: Chest is clear to auscultation, no wheezing or crackles. ABDOMEN: Soft, nontender, nondistended, normoactive bowel sounds. No palpable organomegaly. MUSCULOSKELETAL: Left foot second toe blackening, surrounding erythema seen EXTREMITIES: No cyanosis, clubbing, or pedal edema. NEUROLOGICAL: Gross neurological examination did not reveal any focal deficits. SKIN: No rashes. Assessment and plan Cellulitis of left foot Gangrene of left second toe Poorly controlled diabetes mellitus with an HbA1c of 11.9 Monitor vital signs Monitor CBC Monitor CMP Continue telemetry monitoring Follow-up on blood cultures Follow-up on wound cultures continue IV fluids Continue IV Unasyn and vancomycin Monitor blood sugar levels, start sliding scale insulin. Continue Levemir 5 units twice a day, adjust dose as needed Vascular surgery following, planning left second toe amputation today Infectious disease following Labs and medication were reviewed.. Continue same treatment. Continue with symptomatic treatment. Resume home medication. Monitor labs and vitals. DVT and GI prophylaxis. Further recommendations as per clinical course of the patient Dictation was produced using [employer] dictation software. please excuse any grammatical, word or spelling errors. Objective - Vital Signs Vital signs: Vital Signs Temp 98.4 F 02/17/24 07:00 Pulse 99 02/17/24 07:00 Resp 16 02/17/24 07:00 BP 138/87 02/17/24 07:00 Pulse Ox 99 02/17/24 07:00 FiO2 Intake & Output 02/16/24 02/17/24 02/17/24 18:59 06:59 18:59 Intake Total 1500 Balance 1500 Weight 79.379 kg Intake: Intake, IV Titration 1500 Amount Ampicillin-Sulbactam 3 gm 100 In Sodium Chloride 0.9% 100 ml @ 200 mls/hr IVPB Q6HR [facility] Rx#:[id number] Sodium Chloride 0.9% 1, 900 000 ml @ 75 mls/hr IV . [id number] [facility] Rx#:[id number] Vancomycin 1,500 mg In 500 Sodium Chloride 0.9% 500 ml 500 ml @ 167 mls/hr IVPB Q12H [facility] Rx#: [id number] Other: Voiding Method Toilet # Voids 1 2 # Bowel Movements 1 - Labs CBC & Chem 7: 02/15/24 15:04 02/17/24 08:05 Labs: Abnormal Lab Results - Last 24 Hours (Table) 02/16/24 02/16/24 02/16/24 Range/Units 10:59 11:43 17:20 Sodium 133 L (137-145) mmol/L Creatinine (0.66-1.25) mg/dL Glucose 263 H (74-99) mg/dL POC Glucose (mg/dL) 271 H 287 H (70-110) mg/dL 02/16/24 02/17/24 02/17/24 Range/Units 19:55 07:02 08:05 Sodium (137-145) mmol/L Creatinine 0.61 L (0.66-1.25) mg/dL Glucose (74-99) mg/dL POC Glucose (mg/dL) 358 H 192 H (70-110) mg/dL Microbiology - Last 24 Hours (Table) 02/15/24 20:23 Blood Culture - Preliminary Blood 02/15/24 20:22 Blood Culture - Preliminary Blood 02/15/24 19:33 Gram Stain - Preliminary Toe - Left Second Wound Culture - Preliminary Presumptive Staph aureus
--- NOTE | 2024-02-17 12:24 | P.OP ---
Date of Procedure: 02/17/24 Description of Procedure: DATE OF SERVICE: SURGEON: Halina June DO TENT FINISHER: None PREOPERATIVE DIAGNOSIS: Left second toe gangrene. POSTOPERATIVE DIAGNOSIS: Same, left great toe wound. OPERATION: Left second toe amputation. Sharp excisional debridement left great toe 2 x 1.5 x 0.2 down to muscle ANESTHESIA: Sedation with local ESTIMATED BLOOD LOSS: Less than 5 cc SPECIMENS REMOVED: Left second toe COMPLICATIONS: None DESCRIPTION OF PROCEDURE: This patient is [id number] with left second toe gangrene. Due to this the recommendation was for second toe amputation. The patient was brought to the operating room under local IV sedation and ring block was performed, and a circular incision was made at the base of the proximal phalanx, deepened through the skin, fat, and tendons. Tendons were divided prior to plantar and dorsal aspect of the second toe. After that, proximal phalanx was dislocated from the metatarsal joint. Hemostasis was well controlled rongeur was used to debride the metatarsal head. There is copiously irrigated. Attention was then turned towards the lateral portion of the great toe devitalized tissue was sharply excised with the scissors and subsequently with a curette. Measurements are as above. Dressing applied. The patient tolerated the procedure well.
[2024-02-17 12:59] LABS: Glucose,Whole Blood 167 mg/dL (70-110)
[2024-02-17] MEDS: VANCOMYCIN 1,500 MG in SODIUM CHLORIDE 0.9% 500 ML 500 ML IVPB SCH (14:32)
--- NOTE | 2024-02-17 15:31 | P.PN ---
Subjective Progress Note Date: 02/17/24 Principal diagnosis: Reason for follow-up is left second toe gangrene/diabetic foot infection Patient is a 73-year-old male with past medical significant for diabetes mellitus diverticulitis current everyday smoker presenting to the hospital for evaluation of left second toe swelling redness discoloration has been diagnosed with extensive left second toe diabetic foot infection. Patient is status post left second toe amputation for gangrene completed on 02/17/2024. On today's evaluation that is 02/17/2024,the patient remains to be afebrile, patient is on room air not requiring supplemental oxygen and denies any shortness of breath no chest pain or cough.Patient denies having any nausea or vomiting, no abdominal pain and no diarrhea has been reported denies any worsening pain to the left foot. Patient did have a creatinine 0.61 culture growing Staph aureus blood cultures pending Objective - Vital Signs Vital signs: Vital Signs Temp 98.8 F 02/17/24 12:22 Pulse 66 02/17/24 12:52 Resp 16 02/17/24 12:52 BP 138/71 02/17/24 12:52 Pulse Ox 98 02/17/24 12:52 FiO2 Intake & Output 02/16/24 02/17/24 02/17/24 18:59 06:59 18:59 Intake Total 1500 300 Output Total 5 Balance 1500 295 Weight 79.379 kg Intake: IV 300 Intake, IV Titration 1500 Amount Ampicillin-Sulbactam 3 gm 100 In Sodium Chloride 0.9% 100 ml @ 200 mls/hr IVPB Q6HR [facility] Rx#:[id number] Sodium Chloride 0.9% 1, 900 000 ml @ 75 mls/hr IV . [id number] [facility] Rx#:[id number] Vancomycin 1,500 mg In 500 Sodium Chloride 0.9% 500 ml 500 ml @ 167 mls/hr IVPB Q12H [facility] Rx#: [id number] Output: Estimated Blood Loss 5 Other: Voiding Method Toilet # Voids 1 2 # Bowel Movements 1 - Exam GENERAL DESCRIPTION: An elderly male lying in bed in no distress RESPIRATORY SYSTEM: Unlabored breathing , decreased breath sounds at bases HEART: S1 S2 regular rate and rhythm , ABDOMEN: Soft , no tenderness EXTREMITIES: Left foot is currently dressed - Labs CBC & Chem 7: 02/15/24 15:04 02/17/24 08:05 Labs: Abnormal Lab Results - Last 24 Hours (Table) 02/16/24 02/16/24 02/17/24 Range/Units 17:20 19:55 07:02 Creatinine (0.66-1.25) mg/dL POC Glucose (mg/dL) 287 H 358 H 192 H (70-110) mg/dL 02/17/24 02/17/24 Range/Units 08:05 11:17 Creatinine 0.61 L (0.66-1.25) mg/dL POC Glucose (mg/dL) 188 H (70-110) mg/dL Microbiology - Last 24 Hours (Table) 02/15/24 20:23 Blood Culture - Preliminary Blood 02/15/24 20:22 Blood Culture - Preliminary Blood 02/15/24 19:33 Gram Stain - Preliminary Toe - Left Second Wound Culture - Preliminary Presumptive Staph aureus Assessment and Plan (1) Gangrene of toe of left foot Current Visit: Yes Status: Acute Code(s): I96 - GANGRENE, NOT ELSEWHERE CLASSIFIED SNOMED Code(s): 83580046223515964 (2) Diabetic infection of left foot Current Visit: Yes Status: Acute Code(s): E11.628 - TYPE 2 DIABETES MELLITUS WITH OTHER SKIN COMPLICATIONS; L08.9 - LOCAL INFECTION OF THE SKIN AND SUBCUTANEOUS TISSUE, UNSP SNOMED Code(s): 13998705 Plan: 1patient presented to hospital with extensive left second toe diabetic foot infection that has been going on for almost 4 weeks before presentation to the hospital with a foul-smelling drainage will need to cover for the polymicrobial mariano usually associated with infection in this patient has not been on any antibiotic in the recent past could be MSSA strep for related mariano 2- patient is status post amputation of the left second toe by vascular surgery, initial culture currently growing Staph aureus with sensitivities pending 3patient to continue vancomycin and Unasyn while waiting for the culture to finalize Dictation was produced using [employer] dictation software. please excuse any gra mmatical, word or spelling errors. Time with Patient: Less than 30
[2024-02-17 17:17] LABS: Glucose,Whole Blood 313 mg/dL (70-110)
[2024-02-17 20:03] LABS: Glucose,Whole Blood 270 mg/dL (70-110)
[2024-02-17] MEDS: HYDROmorphone 0.5 MG/0.5 ML SYRINGE IVP PRN (23:47)
[2024-02-18 07:15] LABS: Glucose,Whole Blood 213 mg/dL (70-110)
--- NOTE | 2024-02-18 08:50 | CDI ---
Documentation Clarification Form Date: 02/18/2024 From: Re Scott Phone: [phone] Admit Date: 02/15/2024 06:51:00 PM Patient Name: Kedar Josue Visit Number: [id number] Discharge Date: ATTENTION: The Clinical Documentation Specialists (CDI) and [facility] Coding Staff appreciate your assistance in clarifying documentation. Please respond to the clarification below the line at the bottom and electronically sign. The CDI & [facility] Coding staff will review the response and follow-up if needed. Please note: Queries are made part of the Legal Health Record. If you have any questions, please contact the author of this message via ITS. Dr. Jett Elmore Cellulitis is documented in the H&P 02/15 and in subsequent IM progress notes. Additional clarification regarding the type of cellulitis is requested. History/risk factors: 73-year-old male with a history of DM not on any medication, who presents with a wound with gangrene on his left second toe Clinical Indicators: 02/14 Triage VS: 137/79, 98.5, 84, 16, 99% room air 02/15 Vascular Surgery consult, Assessment: "1.Gangrene left second toe 2.Diabetes mellitus" 02/15 H&P Assessment and Plan: "Cellulitis of left foot." 02/16 ID consult, Plan: "1patient presented to hospital with extensive left second toe diabetic foot infection that has been going on for almost 4 weeks before presentation to the hospital with a foul-smelling drainage" 02/14 Wound Culture, left second toe: Staphylococcus aureus 02/14, 02/16 Hemoglobin A1C: 11.9, 12.1 02/14-02/17 POC Glucose range: 167(02/16)-359(02/15) Treatment: Monitor A1C, Monitor blood glucose Novolog subq ACHS to scale start 02/14 Levemir 5units subq BID start 02/15 Vancomycin 1500mg IV [id number] start 02/16 Unasyn 3gram IV [id number] start 02/16 Please clarify the etiology of the cellulitis, if known: [ x] Cellulitis is a diabetic skin complication [ ] Cellulitis is not a diabetic skin complication [ ] Other, please specify: [ ] Unable to determine MTDD
[2024-02-18 10:38] LABS: Basophils # (A) 0.03 X 10*3/uL (0.00-0.10); Basophils % (A) 0.4 %; Eosinophils # (A) 0.09 X 10*3/uL (0.04-0.35); Eosinophils % (A) 1.2 %; HCT 39.5 % (39.6-50.0); HGB 12.9 g/dL (13.0-17.0); Lymphocytes # (A) 1.57 X 10*3/uL (0.90-5.00); Lymphocytes % (A) 20.4 %; MCH 32.3 pg (27.0-32.0); MCHC 32.7 g/dL (32.0-37.0); MCV 98.8 FL (80.0-97.0); Mean Platelet Volume 11.7 FL (9.5-12.2); Monocytes # (A) 0.52 X 10*3/uL (0.20-1.00); Monocytes % (A) 6.8 %; NRBC Per 100 WBC 0 X 10*3/uL (0.00-0.01); Neutrophils # (A) 5.44 X 10*3/uL (1.80-7.70); Neutrophils % (A) 70.7 %; Platelet Count 170 X 10*3/uL (140-440); RDW 11.9 % (11.5-14.5); WBC 7.69 X 10*3/uL (4.50-10.00)
[2024-02-18 10:58] LABS: ALT 14 U/L (10-49); AST 18 U/L (14-35); Albumin 3.1 g/dL (3.8-4.9); Albumin/Globulin Ratio 1.24 Ratio (1.60-3.17); Alkaline Phosphatase 80 U/L (41-126); BUN/Creat Ratio 12.14 Ratio (12.00-20.00); Blood Urea Nitrogen 8.5 mg/dL (9.0-27.0); Calcium 7.3 mg/dL (8.7-10.3); Chloride 114 mmol/L (96-109); Globulin 2.5 g/dL (1.6-3.3); Glucose 192 mg/dL (70-110); Potassium 3.5 mmol/L (3.5-5.5); Sodium 146 mmol/L (135-145); Total Bilirubin 0.3 mg/dL (0.3-1.2); Total Protein 5.6 g/dL (6.2-8.2)
[2024-02-18 12:05] LABS: Glucose,Whole Blood 354 mg/dL (70-110)
--- NOTE | 2024-02-18 12:12 | P.CONS ---
History of Present Illness - Reason for Consult Consult date: 02/18/24 wound care - History of Present Illness This is a 73-year-old patient being seen by the wound care center for nonhealing ulceration to the left great toe medial aspect and an amputation site ulceration. Patient recently underwent an amputation of the second digit of the left foot. Where he was found also to have a ulceration to the left great toe. Left great toe ulceration measures approximately 0.5 x 0.5 x 0.2 cm with significant amount of slough and nonviable tissue present. Amputation site is approximately 1 x 1 x 1.4 cm. Granulation seen throughout the wound bed of the amputation site with minimal slough noted. Patient's past medical history significant for diabetes and a current everyday smoker. Review Of Systems: Constitutional: No fever, no chills, no night sweats. No weight change. No weakness, fatigue or lethargy. No daytime sleepiness. Integumentary:reports wounds, no lesions. No rash or pruritus. No unusual bruising. No change in hair or nails. Physical exam: General Appearance: Alert, cooperative, no distress, appears stated age. Skin: See HPI all other Skin color, texture, tugor normal, no rashes or lesions. Neurologic: Alert oriented x3 Assessment: 1. Nonhealing ulceration with fat layer exposure left great toe 2. Nonhealing ulceration with bone necrosis other part of left foot 3. Diabetic foot ulcer Plan: 1.Medial left great toe: Apply honey gel, dry gauze rolled gauze and secure with tape. Left second digit amputation site: Apply absorptive silver, saline moistened gauze, dry gauze roll gauze and secure with paper tape. Patient would benefit from advanced wound care and wound care setting. We have happy to see him in 1 week. Thank you for the consultation any questions please contact the wound care center DNP note has been reviewed and discussed with Dr. Garcia and the impression and plan of care has been directed as dictated. Past Medical History Past Medical History: Diabetes Mellitus Additional Past Medical History / Comment(s): HX. of Diverticultis History of Any Multi-Drug Resistant Organisms: None Reported Past Surgical History: Hernia Repair Additional Past Surgical History / Comment(s): Hernia at age 3. Stomach surgery. Colonoscopy. Past Anesthesia/Blood Transfusion Reactions: No Reported Reaction Past Psychological History: No Psychological Hx Reported Smoking Status: Current every day smoker Past Alcohol Use History: None Reported Additional Past Alcohol Use History / Comment(s): Smokes approx. 1 1/2ppd. Past Drug Use History: None Reported - Past Family History Mother Family Medical History: No Reported History Medications and Allergies Home Medications Medication Instructions Recorded Confirmed Type Ibuprofen [Motrin Ib] 400 mg PO Q6H PRN 02/15/24 02/15/24 History Allergies Allergy/AdvReac Type Severity Reaction Status Date / Time No Known Allergies Allergy Verified 02/15/24 17:38 Physical Exam Vitals: Vital Signs Temp Pulse Pulse Resp BP Pulse Ox 02/18/24 08:30 76 88 18 02/18/24 07:10 97.9 F 88 18 146/79 99 02/18/24 01:39 98.3 F 76 18 163/84 94 L 02/17/24 20:00 98.5 F 75 20 123/68 98 02/17/24 14:32 88 102/70 68 L 02/17/24 13:58 96 155/72 02/17/24 13:43 75 18 154/76 99 02/17/24 13:18 78 16 146/81 98 02/17/24 12:52 66 16 138/71 98 02/17/24 12:37 71 16 111/63 99 02/17/24 12:22 98.8 F 77 12 108/58 98 Intake and Output 02/17/24 02/18/24 02/18/24 22:59 06:59 14:59 Other: Voiding Method Toilet # Voids 1 2 1 # Bowel Movements 1 Results CBC & Chem 7: 02/18/24 07:34 02/18/24 07:34 Labs: Abnormal Lab Results - Last 24 Hours (Table) 02/17/24 02/17/24 02/17/24 Range/Units 08:05 12:45 17:15 RBC (4.40-5.60) X 10*6/uL Hgb (13.0-17.0) g/dL Hct (39.6-50.0) % MCV (80.0-97.0) FL MCH (27.0-32.0) pg Sodium (135-145) mmol/L Chloride (96-109) mmol/L Carbon Dioxide (21.6-31.8) mmol/L Anion Gap (4.00-12.00) mmol/L BUN (9.0-27.0) mg/dL Glucose (70-110) mg/dL POC Glucose (mg/dL) 167 H 313 H (70-110) mg/dL Hemoglobin A1c 12.1 H (<=6.0) % Calcium (8.7-10.3) mg/dL Total Protein (6.2-8.2) g/dL Albumin (3.8-4.9) g/dL Albumin/Globulin Ratio (1.60-3.17) Ratio 02/17/24 02/18/24 02/18/24 Range/Units 19:52 07:14 07:34 RBC 4.00 L (4.40-5.60) X 10*6/uL Hgb 12.9 L (13.0-17.0) g/dL Hct 39.5 L (39.6-50.0) % MCV 98.8 H (80.0-97.0) FL MCH 32.3 H (27.0-32.0) pg Sodium (135-145) mmol/L Chloride (96-109) mmol/L Carbon Dioxide (21.6-31.8) mmol/L Anion Gap (4.00-12.00) mmol/L BUN (9.0-27.0) mg/dL Glucose (70-110) mg/dL POC Glucose (mg/dL) 270 H 213 H (70-110) mg/dL Hemoglobin A1c (<=6.0) % Calcium (8.7-10.3) mg/dL Total Protein (6.2-8.2) g/dL Albumin (3.8-4.9) g/dL Albumin/Globulin Ratio (1.60-3.17) Ratio 02/18/24 02/18/24 Range/Units 07:34 12:03 RBC (4.40-5.60) X 10*6/uL Hgb (13.0-17.0) g/dL Hct (39.6-50.0) % MCV (80.0-97.0) FL MCH (27.0-32.0) pg Sodium 146 H (135-145) mmol/L Chloride 114 H (96-109) mmol/L Carbon Dioxide 19.0 L (21.6-31.8) mmol/L Anion Gap 13.00 H (4.00-12.00) mmol/L BUN 8.5 L (9.0-27.0) mg/dL Glucose 192 H (70-110) mg/dL POC Glucose (mg/dL) 354 H (70-110) mg/dL Hemoglobin A1c (<=6.0) % Calcium 7.3 L (8.7-10.3) mg/dL Total Protein 5.6 L (6.2-8.2) g/dL Albumin 3.1 L (3.8-4.9) g/dL Albumin/Globulin Ratio 1.24 L (1.60-3.17) Ratio Microbiology - Last 24 Hours (Table) 02/15/24 20:23 Blood Culture - Preliminary Blood 02/15/24 20:22 Blood Culture - Preliminary Blood 02/15/24 20:22 Anaerobic Culture - Preliminary Toe - Left Second 02/15/24 19:33 Gram Stain - Preliminary Toe - Left Second Wound Culture - Preliminary Staphylococcus aureus Assessment and Plan (1) Non-pressure chronic ulcer of other part of left foot with fat layer exposed Current Visit: Yes Status: Acute Code(s): L97.522 - NON-PRS CHRONIC ULCER OTH PRT LEFT FOOT W FAT LAYER EXPOSED SNOMED Code(s): 32699381152101306 (2) Non-pressure chronic ulcer of other part of left foot with necrosis of bone Current Visit: Yes Status: Acute Code(s): L97.524 - NON-PRS CHRONIC ULCER OTH PRT LEFT FOOT W NECROSIS OF BONE SNOMED Code(s): 29045451332910528 (3) Type 2 diabetes mellitus with foot ulcer Current Visit: Yes Status: Acute Code(s): E11.621 - TYPE 2 DIABETES MELLITUS WITH FOOT ULCER; L97.509 - NON-PRESSURE CHRONIC ULCER OTH PRT UNSP FOOT W UNSP SEVERITY SNOMED Code(s): 189610062
--- NOTE | 2024-02-18 12:48 | P.PN ---
Subjective patient heydi 73-year-old gentleman with past medical history significant for diabetes mellitus not on any medication brought to the ER because of left foot infection. Patient stated that he was all right 2 weeks ago when he sustained an injury to his left foot. Patient noticed there was a wound on his second toe, patient did not see any initial medical health as he was under a lot of stress at home because of his being sick. Patient noticed that over the last few weeks his foot started turning black. Patient also having fevers and chills. Patient was having a lot of pain in his left foot as well. Because of the symptoms, patient came to the ER Initial lab work done in the ER showed WBC 10.6, hemoglobin 16.8, platelet count 217, sodium 135, potassium 4.4, BUN 15, creatinine 0.7, glucose 283, HbA1c level of 11.9 lactate 2, calcium 9.1, bilirubin 1, AST 23, ALT 19, CRP 3.5 X-ray left foot done showed soft tissue swelling without evidence of acute fracture. Patient admitted to internal medicine service 02/16. Patient seen and examined. Currently n.p.o., going for surgery today. at the bedside, discussed with them in detail and the need for him to be more compliant with his blood glucose control. 02/18/2024 Patient is awake and alert He is s/p left second toe amputation for infected toe with gangrene, currently l meredith in bed comfortable He has open wound at the second toe bed, with dressing in place to heal by s econdary intention Remains on IV Unasyn and IV vancomycin and normal saline 75 mL/h ID team are following closely and follow-up culture results Assessment and plan GENERAL: The patient is alert and oriented x3, not in any acute distress. Well developed, well nourished. HEENT: Pupils are round and equally reacting to light. EOMI. No scleral icterus. No conjunctival pallor. Normocephalic, atraumatic. No pharyngeal erythema. No thyromegaly. CARDIOVASCULAR: S1 and S2 present. No murmurs, rubs, or gallops. PULMONARY: Chest is clear to auscultation, no wheezing or crackles. ABDOMEN: Soft, nontender, nondistended, normoactive bowel sounds. No palpable organomegaly. MUSCULOSKELETAL: Left foot second toe blackening, surrounding erythema seen EXTREMITIES: No cyanosis, clubbing, or pedal edema. NEUROLOGICAL: Gross neurological examination did not reveal any focal deficits. SKIN: No rashes. Objective - Vital Signs Vital signs: Vital Signs Temp 98.2 F 02/18/24 12:03 Pulse 68 02/18/24 12:03 Resp 18 02/18/24 12:03 BP 151/77 02/18/24 12:03 Pulse Ox 98 02/18/24 12:03 FiO2 Intake & Output 02/17/24 02/18/24 02/18/24 18:59 06:59 18:59 Intake Total 300 Output Total 5 Balance 295 Intake: IV 300 Output: Estimated Blood Loss 5 Other: Voiding Method Toilet # Voids 1 2 1 # Bowel Movements 1 - Labs CBC & Chem 7: 02/18/24 07:34 02/18/24 07:34 Labs: Abnormal Lab Results - Last 24 Hours (Table) 02/17/24 02/17/24 02/17/24 Range/Units 08:05 12:45 17:15 RBC (4.40-5.60) X 10*6/uL Hgb (13.0-17.0) g/dL Hct (39.6-50.0) % MCV (80.0-97.0) FL MCH (27.0-32.0) pg Sodium (135-145) mmol/L Chloride (96-109) mmol/L Carbon Dioxide (21.6-31.8) mmol/L Anion Gap (4.00-12.00) mmol/L BUN (9.0-27.0) mg/dL Glucose (70-110) mg/dL POC Glucose (mg/dL) 167 H 313 H (70-110) mg/dL Hemoglobin A1c 12.1 H (<=6.0) % Calcium (8.7-10.3) mg/dL Total Protein (6.2-8.2) g/dL Albumin (3.8-4.9) g/dL Albumin/Globulin Ratio (1.60-3.17) Ratio 02/17/24 02/18/24 02/18/24 Range/Units 19:52 07:14 07:34 RBC 4.00 L (4.40-5.60) X 10*6/uL Hgb 12.9 L (13.0-17.0) g/dL Hct 39.5 L (39.6-50.0) % MCV 98.8 H (80.0-97.0) FL MCH 32.3 H (27.0-32.0) pg Sodium (135-145) mmol/L Chloride (96-109) mmol/L Carbon Dioxide (21.6-31.8) mmol/L Anion Gap (4.00-12.00) mmol/L BUN (9.0-27.0) mg/dL Glucose (70-110) mg/dL POC Glucose (mg/dL) 270 H 213 H (70-110) mg/dL Hemoglobin A1c (<=6.0) % Calcium (8.7-10.3) mg/dL Total Protein (6.2-8.2) g/dL Albumin (3.8-4.9) g/dL Albumin/Globulin Ratio (1.60-3.17) Ratio 02/18/24 02/18/24 Range/Units 07:34 12:03 RBC (4.40-5.60) X 10*6/uL Hgb (13.0-17.0) g/dL Hct (39.6-50.0) % MCV (80.0-97.0) FL MCH (27.0-32.0) pg Sodium 146 H (135-145) mmol/L Chloride 114 H (96-109) mmol/L Carbon Dioxide 19.0 L (21.6-31.8) mmol/L Anion Gap 13.00 H (4.00-12.00) mmol/L BUN 8.5 L (9.0-27.0) mg/dL Glucose 192 H (70-110) mg/dL POC Glucose (mg/dL) 354 H (70-110) mg/dL Hemoglobin A1c (<=6.0) % Calcium 7.3 L (8.7-10.3) mg/dL Total Protein 5.6 L (6.2-8.2) g/dL Albumin 3.1 L (3.8-4.9) g/dL Albumin/Globulin Ratio 1.24 L (1.60-3.17) Ratio Microbiology - Last 24 Hours (Table) 02/15/24 20:23 Blood Culture - Preliminary Blood 02/15/24 20:22 Blood Culture - Preliminary Blood 02/15/24 20:22 Anaerobic Culture - Preliminary Toe - Left Second 02/15/24 19:33 Gram Stain - Preliminary Toe - Left Second Wound Culture - Preliminary Staphylococcus aureus Assessment and Plan Assessment: Cellulitis of left foot with Gangrene of left second toe, status post amputation Poorly controlled diabetes mellitus with an HbA1c of 11.9 Plan: follow-up on wound cultures continue IV fluids, currently on normal saline Continue IV Unasyn and vancomycin Monitor blood sugar levels, start sliding scale insulin. Continue Levemir 5 units twice a day, adjust dose as needed Vascular surgery following, planning left second toe amputation today Infectious disease following GI and DVT prophylaxis PT/OT
[2024-02-18] MEDS: VANCOMYCIN TROUGH DUE 1 EACH MISC MISCELLANE ONE (14:22)
--- NOTE | 2024-02-18 15:43 | P.PN ---
Subjective Progress Note Date: 02/18/24 Principal diagnosis: Left second toe infection Patient seen and examined today as a follow-up. He has a dressing to the left foot clean dry and intact. He states he has no pain. He has been afebrile. Preliminary wound culture Staphylococcus aureus. Objective - Vital Signs Vital signs: Vital Signs Temp 97.9 F 02/18/24 07:10 Pulse 88 02/18/24 07:10 Resp 18 02/18/24 07:10 BP 146/79 02/18/24 07:10 Pulse Ox 99 02/18/24 07:10 FiO2 Intake & Output 02/17/24 02/18/24 02/18/24 18:59 06:59 18:59 Intake Total 300 Output Total 5 Balance 295 Intake: IV 300 Output: Estimated Blood Loss 5 Other: # Voids 1 2 1 # Bowel Movements 1 - Exam General appearance: The patient is alert, oriented, appears in no acute distress. HET: Head is normocephalic and atraumatic. Neck: Supple. Abdomen: Soft, nondistended. Extremities: Left foot with dressing clean dry and intact Neurological: No focal deficits. Strength and sensation are grossly intact. - Labs CBC & Chem 7: 02/18/24 07:34 02/18/24 07:34 Labs: Abnormal Lab Results - Last 24 Hours (Table) 02/17/24 02/17/24 02/17/24 Range/Units 08:05 08:05 11:17 Creatinine 0.61 L (0.66-1.25) mg/dL POC Glucose (mg/dL) 188 H (70-110) mg/dL Hemoglobin A1c 12.1 H (<=6.0) % 02/17/24 02/17/24 02/17/24 Range/Units 12:45 17:15 19:52 Creatinine (0.66-1.25) mg/dL POC Glucose (mg/dL) 167 H 313 H 270 H (70-110) mg/dL Hemoglobin A1c (<=6.0) % 02/18/24 Range/Units 07:14 Creatinine (0.66-1.25) mg/dL POC Glucose (mg/dL) 213 H (70-110) mg/dL Hemoglobin A1c (<=6.0) % Microbiology - Last 24 Hours (Table) 02/15/24 20:23 Blood Culture - Preliminary Blood 02/15/24 20:22 Blood Culture - Preliminary Blood 02/15/24 20:22 Anaerobic Culture - Preliminary Toe - Left Second 02/15/24 19:33 Gram Stain - Preliminary Toe - Left Second Wound Culture - Preliminary Staphylococcus aureus Assessment and Plan Assessment: 1. Gangrene left second toe status post amputation 2. Great toe wound status post excisional debridement down to muscle 3. Diabetes mellitus Plan: 1. Local wound care to right great toe per recommendations from wound clinic 2. Postop shoe to left foot 3. Heel walk on left foot 4. Antibiotics per recommendations from infectious disease 5. Outpatient follow-up with vascular surgery and at that time we will discuss further lower extremity vascular workup Thank you for this consultation, we will continue to follow. The impression and plan of care has been dictated as directed. I performed a history and examination of this patient, discussed the same with the dictator. I agree with the dictator's note ,documented as a scribe. Any additional findings or plans will be noted.
[2024-02-18 17:14] LABS: Glucose,Whole Blood 209 mg/dL (70-110)
--- NOTE | 2024-02-18 17:38 | P.PN ---
Subjective Progress Note Date: 02/18/24 Principal diagnosis: Reason for follow-up is left second toe gangrene/diabetic foot infection Patient is a 73-year-old male with past medical significant for diabetes mellitus diverticulitis current everyday smoker presenting to the hospital for evaluation of left second toe swelling redness discoloration has been diagnosed with extensive left second toe diabetic foot infection.Patient is status post left second toe amputation for gangrene completed on 02/17/2024. On today's evaluation that is 02/18/2024, the patient continues to be afebrile, the patient is on room air and breathing comfortably, the Pt denies having any chest pain or cough, the patient denies having any abdominal pain no vomiting or any diarrhea has been reported by the nursing staff, the patient denies any pain to his left second toe amputation site. Patient white count is 7.69 creatinine 0.7 cultures with MSSA Objective - Vital Signs Vital signs: Vital Signs Temp 98.2 F 02/18/24 12:03 Pulse 68 02/18/24 12:03 Resp 18 02/18/24 12:03 BP 151/77 02/18/24 12:03 Pulse Ox 98 02/18/24 12:03 FiO2 Intake & Output 02/17/24 02/18/24 02/18/24 18:59 06:59 18:59 Intake Total 300 Output Total 5 Balance 295 Intake: IV 300 Output: Estimated Blood Loss 5 Other: Voiding Method Toilet # Voids 1 2 1 # Bowel Movements 1 - Exam GENERAL DESCRIPTION: An elderly male lying in bed in no distress RESPIRATORY SYSTEM: Unlabored breathing , decreased breath sounds at bases HEART: S1 S2 regular rate and rhythm , ABDOMEN: Soft , no tenderness EXTREMITIES: Left second toe amputation site wound is open did have some swelling maceration to the great toe - Labs CBC & Chem 7: 02/18/24 07:34 02/18/24 07:34 Labs: Abnormal Lab Results - Last 24 Hours (Table) 02/17/24 02/17/24 02/17/24 Range/Units 08:05 17:15 19:52 RBC (4.40-5.60) X 10*6/uL Hgb (13.0-17.0) g/dL Hct (39.6-50.0) % MCV (80.0-97.0) FL MCH (27.0-32.0) pg Sodium (135-145) mmol/L Chloride (96-109) mmol/L Carbon Dioxide (21.6-31.8) mmol/L Anion Gap (4.00-12.00) mmol/L BUN (9.0-27.0) mg/dL Glucose (70-110) mg/dL POC Glucose (mg/dL) 313 H 270 H (70-110) mg/dL Hemoglobin A1c 12.1 H (<=6.0) % Calcium (8.7-10.3) mg/dL Total Protein (6.2-8.2) g/dL Albumin (3.8-4.9) g/dL Albumin/Globulin Ratio (1.60-3.17) Ratio 02/18/24 02/18/24 02/18/24 Range/Units 07:14 07:34 07:34 RBC 4.00 L (4.40-5.60) X 10*6/uL Hgb 12.9 L (13.0-17.0) g/dL Hct 39.5 L (39.6-50.0) % MCV 98.8 H (80.0-97.0) FL MCH 32.3 H (27.0-32.0) pg Sodium 146 H (135-145) mmol/L Chloride 114 H (96-109) mmol/L Carbon Dioxide 19.0 L (21.6-31.8) mmol/L Anion Gap 13.00 H (4.00-12.00) mmol/L BUN 8.5 L (9.0-27.0) mg/dL Glucose 192 H (70-110) mg/dL POC Glucose (mg/dL) 213 H (70-110) mg/dL Hemoglobin A1c (<=6.0) % Calcium 7.3 L (8.7-10.3) mg/dL Total Protein 5.6 L (6.2-8.2) g/dL Albumin 3.1 L (3.8-4.9) g/dL Albumin/Globulin Ratio 1.24 L (1.60-3.17) Ratio 02/18/24 Range/Units 12:03 RBC (4.40-5.60) X 10*6/uL Hgb (13.0-17.0) g/dL Hct (39.6-50.0) % MCV (80.0-97.0) FL MCH (27.0-32.0) pg Sodium (135-145) mmol/L Chloride (96-109) mmol/L Carbon Dioxide (21.6-31.8) mmol/L Anion Gap (4.00-12.00) mmol/L BUN (9.0-27.0) mg/dL Glucose (70-110) mg/dL POC Glucose (mg/dL) 354 H (70-110) mg/dL Hemoglobin A1c (<=6.0) % Calcium (8.7-10.3) mg/dL Total Protein (6.2-8.2) g/dL Albumin (3.8-4.9) g/dL Albumin/Globulin Ratio (1.60-3.17) Ratio Microbiology - Last 24 Hours (Table) 02/15/24 20:23 Blood Culture - Preliminary Blood 02/15/24 20:22 Blood Culture - Preliminary Blood 02/15/24 20:22 Anaerobic Culture - Preliminary Toe - Left Second 02/15/24 19:33 Gram Stain - Preliminary Toe - Left Second Wound Culture - Preliminary Staphylococcus aureus Assessment and Plan (1) Gangrene of toe of left foot Current Visit: Yes Status: Acute Code(s): I96 - GANGRENE, NOT ELSEWHERE CLASSIFIED SNOMED Code(s): 28843270475228994 (2) Diabetic infection of left foot Current Visit: Yes Status: Acute Code(s): E11.628 - TYPE 2 DIABETES MELLITUS WITH OTHER SKIN COMPLICATIONS; L08.9 - LOCAL INFECTION OF THE SKIN AND SUBCUTANEOUS TISSUE, UNSP SNOMED Code(s): 27719787 Plan: 1patient presented to hospital with extensive left second toe diabetic foot infection that has been going on for almost 4 weeks before presentation to the hospital with a foul-smelling drainage will need to cover for the polymicrobial mariano usually associated with infection in this patient has not been on any antibiotic in the recent past could be MSSA strep for related mariano 2- patient is status post amputation of the left second toe by vascular surgery, initial culture currently growing Staph aureus which has been finalized as MSSA 3I will discontinue vancomycin and continue the patient with Unasyn plan is for midline and short course of IV cefazolin on discharge Dictation was produced using [employer] dictation software. please excuse any grammatical, word or spelling errors. Time with Patient: Less than 30
[2024-02-18 20:17] LABS: Glucose,Whole Blood 314 mg/dL (70-110)
[2024-02-19 07:46] LABS: Glucose,Whole Blood 209 mg/dL (70-110)
[2024-02-19 11:41] LABS: Glucose,Whole Blood 239 mg/dL (70-110)
[2024-02-19 12:46] VITALS: BP 164/89; PULSE 73; RESP 16; TEMP 98.1
--- NOTE | 2024-02-19 14:41 | P.PN ---
Subjective Progress Note Date: 02/19/24 Principal diagnosis: Left second toe infection Patient seen as a follow-up. No acute changes. Afebrile. He was seen by wound care. Objective - Vital Signs Vital signs: Vital Signs Temp 97.8 F 02/19/24 07:45 Pulse 86 02/19/24 07:45 Resp 18 02/19/24 07:45 BP 143/88 02/19/24 07:45 Pulse Ox 97 02/19/24 07:45 FiO2 Intake & Output 02/18/24 02/19/24 02/19/24 18:59 06:59 18:59 Intake Total 200 Output Total 500 Balance -300 Intake: Oral 200 Output: Urine 500 Other: Voiding Method Toilet Toilet # Voids 2 # Bowel Movements 1 - Exam General appearance: The patient is alert, oriented, appears in no acute distress. HET: Head is normocephalic and atraumatic. Neck: Supple. Abdomen: Soft, nondistended. Extremities: Left foot with dressing clean dry and intact Neurological: No focal deficits. Strength and sensation are grossly intact. - Labs CBC & Chem 7: 02/18/24 07:34 02/18/24 07:34 Labs: Abnormal Lab Results - Last 24 Hours (Table) 02/18/24 02/18/24 02/18/24 Range/Units 12:03 17:12 20:16 POC Glucose (mg/dL) 354 H 209 H 314 H (70-110) mg/dL 02/19/24 02/19/24 Range/Units 07:41 11:40 POC Glucose (mg/dL) 209 H 239 H (70-110) mg/dL Microbiology - Last 24 Hours (Table) 02/15/24 20:23 Blood Culture - Preliminary Blood 02/15/24 20:22 Blood Culture - Preliminary Blood 02/15/24 19:33 Gram Stain - Final Toe - Left Second Wound Culture - Final Staphylococcus aureus Acinetobacter lwoffi grp Assessment and Plan Assessment: 1. Gangrene left second toe status post amputation 2. Great toe wound status post excisional debridement down to muscle 3. Diabetes mellitus Plan: 1. Local wound care to right great toe per recommendations from wound clinic 2. Postop shoe to left foot 3. Heel walk on left foot 4. Antibiotics per recommendations from infectious disease 5. Outpatient follow-up with vascular surgery and at that time we will discuss further lower extremity vascular workup Thank you for this consultation, patient is cleared from vascular surgery for discharge. We will sign off at this time. The impression and plan of care has been dictated as directed. Dr. Mayo I performed a history and examination of this patient, discussed the same with the dictator. I agree with the dictator's note ,documented as a scribe. Any additional findings or plans will be noted.
--- NOTE | 2024-02-19 17:02 | P.PN ---
Subjective Progress Note Date: 02/19/24 Principal diagnosis: Reason for follow-up is left second toe gangrene/diabetic foot infection Patient is a 73-year-old male with past medical significant for diabetes mellitus diverticulitis current everyday smoker presenting to the hospital for evaluation of left second toe swelling redness discoloration has been diagnosed with extensive left second toe diabetic foot infection.Patient is status post left second toe amputation for gangrene completed on 02/17/2024. On today's evaluation that is 02/19/2024, Patient is afebrile patient is currently on room air and denies having any shortness of breath, the patient denies any chest pain or cough, the patient denies any nausea vomiting did not have any abdominal pain and no diarrhea denies any worsening pain to the left second amputation site. No new labs has been repeated today culture finalized with MSSA Objective - Vital Signs Vital signs: Vital Signs Temp 98.1 F 02/19/24 12:38 Pulse 73 02/19/24 12:38 Resp 16 02/19/24 12:38 BP 164/89 02/19/24 12:38 Pulse Ox 99 02/19/24 12:38 FiO2 Intake & Output 02/18/24 02/19/24 02/19/24 18:59 06:59 18:59 Intake Total 200 Output Total 500 Balance -300 Intake: Oral 200 Output: Urine 500 Other: Voiding Method Toilet Toilet # Voids 2 # Bowel Movements 1 - Exam GENERAL DESCRIPTION: An elderly male lying in bed in no distress RESPIRATORY SYSTEM: Unlabored breathing , decreased breath sounds at bases HEART: S1 S2 regular rate and rhythm , ABDOMEN: Soft , no tenderness EXTREMITIES: Left second toe amputation site wound is currently dressed - Labs CBC & Chem 7: 02/18/24 07:34 02/18/24 07:34 Labs: Abnormal Lab Results - Last 24 Hours (Table) 02/18/24 02/18/24 02/19/24 Range/Units 17:12 20:16 07:41 POC Glucose (mg/dL) 209 H 314 H 209 H (70-110) mg/dL 02/19/24 Range/Units 11:40 POC Glucose (mg/dL) 239 H (70-110) mg/dL Microbiology - Last 24 Hours (Table) 02/15/24 20:23 Blood Culture - Preliminary Blood 02/15/24 20:22 Blood Culture - Preliminary Blood 02/15/24 19:33 Gram Stain - Final Toe - Left Second Wound Culture - Final Staphylococcus aureus Acinetobacter lwoffi grp Assessment and Plan (1) Gangrene of toe of left foot Status: Acute Code(s): I96 - GANGRENE, NOT ELSEWHERE CLASSIFIED SNOMED Code(s): 28671807882097825 (2) Diabetic infection of left foot Status: Acute Code(s): E11.628 - TYPE 2 DIABETES MELLITUS WITH OTHER SKIN COMPLICATIONS; L08.9 - LOCAL INFECTION OF THE SKIN AND SUBCUTANEOUS TISSUE, UNSP SNOMED Code(s): 25722542 Plan: 1patient presented to hospital with extensive left second toe diabetic foot infection that has been going on for almost 4 weeks before presentation to the hospital with a foul-smelling drainage will need to cover for the polymicrobial mariano usually associated with infection in this patient has not been on any antibiotic in the recent past could be MSSA strep for related mariano 2- patient is status post amputation of the left second toe by vascular surgery, initial culture currently growing Staph aureus which has been finalized as MSSA 3I will discontinue Unasyn will give a dose of Rocephin 2 g daily and plan is for 2-week course of cefazolin on discharge prescription provided to the case management and close outpatient follow-up Dictation was produced using [employer] dictation software. please excuse any grammatical, word or spelling errors. Time with Patient: Less than 30
--- NOTE | 2024-02-24 17:02 | P.DS ---
Providers Date of admission: 02/15/24 18:51 Attending physician: Lizette Leger Consults: 02/15/24 19:42 Consult Physician Urgent Consulting Provider: Man Ko Consult Reason/Comments: L 2nd toe infection Do you want consulting provider notified?: Yes 02/16/24 10:16 Consult Physician Routine Consulting Provider: Tyler Medeiros Consult Reason/Comments: Abscess of left foot Do you want consulting provider notified?: Yes Primary care physician: Sudheer Lubin Hospital Course: Diagnoses, Cellulitis of left foot with Gangrene of left second toe, status post amputation Poorly controlled diabetes mellitus with an HbA1c of 11.9 Hospital course: Diagnoses:patient heydi 73-year-old gentleman with past medical history significant for diabetes mellitus not on any medication brought to the ER because of left foot infection. Patient stated that he was all right 2 weeks ago when he sustained an injury to his left foot. He is s/p left second toe amputation for infected toe with gangrene, currently lying in bed comfortable Patient looks comfortable in bed. Denies any new complaint and agreeable to be discharged today Patient will be cleared for discharge by ID team on IV antibiotic, PICC line already been placed Also patient was cleared for discharge by vascular surgery team Problems and management plan were discussed with the patient and he verbalized understanding and acceptance Patient was found stable and can be discharged home in guarded prognosis however he needs follow-up as an outpatient. Patient was instructed to follow up with PCP Dr. Lubin within one week and patient agrees Patient was instructed to follow-up with vascular surgery Dr. June in 1 to 2 weeks and ID team Dr. Medeiros in 2 weeks after discharge and he agrees Physical exam Gen: patient is a AAOx3, no distress CVS: S1-S2, RRR, no murmur Lungs: B/L CTA, no wheezing Abdomen: soft, no distention, no tenderness, positive bowel sounds -Extremity: no leg edema or induration. Left second toe bed wound open, with dressing in place. No surrounding cellulitis Time spent more than 35 minutes [id number] Patient Condition at Discharge: Good Plan - Discharge Summary Discharge Rx Participant: No New Discharge Prescriptions: New ceFAZolin [Kefzol] 2 gm IVP Q8HR #42 each No Action Famotidine [Pepcid] 20 mg PO DAILY #30 tablet metFORMIN HCL 500 mg PO BID #60 tablet Insulin Glargine,Hum.rec.anlog [Lantus Solostar Pen] 20 units SQ DAILY #2 each Discharge Medication List ceFAZolin [Kefzol] 2 gm IVP Q8HR #42 each 02/19/24 [Rx] Famotidine [Pepcid] 20 mg PO DAILY #30 tablet 02/23/24 [Rx] Insulin Glargine,Hum.rec.anlog [Lantus Solostar Pen] 20 units SQ DAILY #2 each 02/23/24 [Rx] metFORMIN HCL 500 mg PO BID #60 tablet 02/23/24 [Rx] Follow up Appointment(s)/Referral(s): Sudheer Lubin MD [Primary Care Provider] - 02/24/24 2:10 pm Umair Dillard MD [REFERRING] - 10 Days (Ambulance Assistant, diabetes doctor Must have your primary doctor send a referral over to this office and they will set up a new patient appointment.) Halina June DO [STAFF PHYSICIAN] - 03/03/24 1:30 pm (vascular surgeon who operated on you ) [facility] [REFERRING] - As Needed (Patient cost $30.23 per week Delivery tonight between 6PM-9PM) [facility] [NON-STAFF] - 03/03/24 2:00 pm Tyler Medeiros MD [STAFF PHYSICIAN] - 2 Weeks [facility] Visiting [facility], [NON-STAFF] - 02/20/24 8:00 am Activity/Diet/Wound Care/Special Instructions: heart healthy diet, low carbohydrate diet 1800 k [place]xie per day activity is restricted till you see your doctor we recommend to check your glucose 4 times per day , before each meal and at bed time, keep the results in a log book and bring it to your doctor on your appointment date if your glucose level is less than 70 or more than 400 then call 911 and come to emergency room please Discontinue PICC line/midline after finish your course of IV antibiotic Discharge Disposition: HOME WITH HOME HEALTH SERVICES
--- NOTE | 2024-03-01 10:43 | CDI ---
Documentation Clarification Form Date: 03/01/24 From: Cindy Roberts Admit Date: 02/15/2024 06:51:00 PM Patient Name: Kedar Josue Visit Number: [id number] Discharge Date: 02/19/2024 04:45:00 PM ATTENTION: The Clinical Documentation Specialists (CDI) and [facility] Coding Staff appreciate your assistance in clarifying documentation. Please respond to the clarification below the line at the bottom and electronically sign. The CDI & [facility] Coding staff will review the response and follow-up if needed. Please note: Queries are made part of the Legal Health Record. If you have any questions, please contact the author of this message via ITS. Dr. Darinel Castellanos, The final diagnosis of the pathology report states Left 2nd toe,underlying bone having acute osteomyelitis. Coding guidelines do not allow coding professionals to code based on pathology results; therefore, clarification is requested. History/risk factors: T2DM w gangrene, cellulitis, foot ulcer Clinical Indicators: gangrene of second toe of left foot, ESR 64, CRP 3.5, lactic acid 11.9 Treatment: Left second toe amputation, sharp excisional debridement left great toe down to muscle Please clarify if you agree with the pathology report diagnosis of acute osteomyelitis of left 2nd toe: [ x ] Yes [ ] No [ ] Other (please specify) [ ] Unable to determine MTDD
== END 2024-02-19 16:45 | disposition home health service (06) | DRG 256 ==
LOC: EC 14:16 → 4SSUR 18:51 → 5NMEDONC 20:58
PROVIDERS: ADMIT Internal Medicine; ATTEND Internal Medicine
PROC: 0Y6S0Z0 Detachment at Left 2nd Toe, Complete, Open Approach (ICD-10-PCS; principal; 2024-02-17 11:35)
PROC: 0KBW0ZZ Excision of Left Foot Muscle, Open Approach (ICD-10-PCS; principal; 2024-02-17 11:35)
PROC: 05HA33Z Insertion of Infusion Device into Left Brachial Vein, Percutaneous Approach (ICD-10-PCS; 2024-02-19 09:30)
DX: E11.52 Type 2 diabetes mellitus with diabetic peripheral angiopathy with gangrene (principal); I96 Gangrene, not elsewhere classified; M86.172 Other acute osteomyelitis, left ankle and foot; L03.116 Cellulitis of left lower limb; L02.612 Cutaneous abscess of left foot; L97.524 Non-pressure chronic ulcer of other part of left foot with necrosis of bone; E11.621 Type 2 diabetes mellitus with foot ulcer; E11.628 Type 2 diabetes mellitus with other skin complications; E11.69 Type 2 diabetes mellitus with other specified complication; L98.492 Non-pressure chronic ulcer of skin of other sites with fat layer exposed; R26.2 Difficulty in walking, not elsewhere classified; Z28.310 Unvaccinated for COVID-19; F17.200 Nicotine dependence, unspecified, uncomplicated; Z71.6 Tobacco abuse counseling
CPT/HCPCS: 36410; 36415; 76937; 80048; 80053; 80202; 82565; 83036; 83605; 85025; 85610; 85652; 85730; 86140; 86850; 86900; 86901; 87040; 87070; 87075; 87077; 87186; 87205; 88305; 88311; 93922; 96365; 96366; 99284

== ENCOUNTER 2024-02-22 12:17 | Observation (INO) | payer MEDICARE ==
--- NOTE | 2024-02-22 13:01 | ED ---
General Adult HPI - General Chief complaint: Recheck/Abnormal Lab/Rx Stated complaint: pic line Time Seen by Provider: 02/22/24 12:48 Source: patient Mode of arrival: ambulatory Limitations: no limitations - History of Present Illness Initial comments: This patient is a 73-year-old man who presents with complaint that his IV access has stopped working. The patient is receiving home antibiotics for diabetic foot infection. Last night's dose had been administered without any problem, but the patient's visiting nurse was not able to get the IV to flow today. She directed him to the emergency department. Patient denies fever or chills. No pain to the patient's foot denies other symptoms. On postop day 3 following toe amputation for diabetic foot infection. -: hour(s) Severity scale (1-10): 0 Consistency: constant Improves with: none Worsens with: none Associated Symptoms: denies other symptoms Treatments Prior to Arrival: none - Related Data Home Medications Medication Instructions Recorded Confirmed Insulin Detemir (Levemir) [Levemir] 5 unit SQ DIRECTED 02/22/24 02/22/24 Previous Rx's Medication Instructions Recorded ceFAZolin [Kefzol] 2 gm IVP Q8HR #42 each 02/19/24 Allergies Allergy/AdvReac Type Severity Reaction Status Date / Time No Known Allergies Allergy Verified 02/22/24 15:41 Review of Systems ROS Statement: Those systems with pertinent positive or pertinent negative responses have been documented in the HPI. ROS Other: All systems not noted in ROS Statement are negative. Constitutional: Denies: fever, chills Respiratory: Denies: cough, dyspnea Cardiovascular: Denies: chest pain, palpitations Gastrointestinal: Denies: abdominal pain, vomiting Skin: Denies: rash Neurological: Denies: headache Past Medical History Past Medical History: Diabetes Mellitus Additional Past Medical History / Comment(s): HX. of Diverticultis History of Any Multi-Drug Resistant Organisms: None Reported Past Surgical History: Hernia Repair Additional Past Surgical History / Comment(s): Hernia at age 3. Stomach surgery. Colonoscopy. Past Anesthesia/Blood Transfusion Reactions: No Reported Reaction Past Psychological History: No Psychological Hx Reported Smoking Status: Current every day smoker Past Alcohol Use History: None Reported Past Drug Use History: None Reported - Past Family History Mother Family Medical History: No Reported History General Exam Limitations: no limitations General appearance: alert, in no apparent distress Head exam: Present: atraumatic, normocephalic Respiratory exam: Present: normal lung sounds bilaterally. Absent: respiratory distress, wheezes, rales, rhonchi, stridor, accessory muscle use Cardiovascular Exam: Present: regular rate, normal rhythm, normal heart sounds. Absent: systolic murmur, diastolic murmur, rubs, gallop Extremities exam: Present: other (Note the patient has a left foot dressing, the exposed skin does not show erythema or abnormal warmth. Dressing is clean and intact) Skin exam: Present: warm, dry, intact, normal color. Absent: rash Course Vital Signs 02/22/24 02/22/24 12:37 17:48 Temperature 98.3 F Pulse Rate 99 99 Respiratory 18 18 Rate Blood Pressure 111/70 116/76 O2 Sat by Pulse 99 97 Oximetry Medical Decision Making - Medical Decision Making Patient is 73-year-old man who is receiving outpatient antibiotic treatment through midline catheter for diabetic foot infection. The patient is here with obstructed midline catheter. We did attempt to clear this using Cathflo, and made 2 attempts without success. The patient will therefore be admitted to continue his IV antibiotic and have the catheter replaced. Disposition Clinical Impression: Diabetic infection of left foot, Occluded PICC line Disposition: ADMITTED IP TO THIS HOSP Condition: Stable
[2024-02-22] MEDS: ALTEPLASE 2 MG VIAL (CATHFLO) IV STA ×2 (13:34→14:30)
[2024-02-22] MEDS ORDERED: ACETAMINOPHEN TAB 325 MG TAB PO PRN (16:24)
[2024-02-22] MEDS ORDERED: NALOXONE 0.4 MG/ML 1 ML VIAL IV PRN (16:24)
[2024-02-22] MEDS: SODIUM CHLORIDE 0.9% 1,000 ML IV SCH (17:02)
[2024-02-22 17:08] LABS: Glucose,Whole Blood 251 mg/dL (70-110)
[2024-02-22] MEDS: INSULIN DETEMIR (LEVEMIR) 100 UNIT/ML SYR SQ SCH (17:27)
[2024-02-22 20:36] LABS: Glucose,Whole Blood 360 mg/dL (70-110)
[2024-02-22 22:00] LABS: Glucose,Whole Blood 383 mg/dL (70-110)
[2024-02-22] MEDS: INSULIN ASPART (NovoLOG) 100 UNIT/ML VIAL SQ SCH (22:04)
[2024-02-23 05:41] LABS: Glucose,Whole Blood 189 mg/dL (70-110)
[2024-02-23] MEDS ORDERED: DEXTROSE 50% SYRINGE 50 ML IVP PRN ×2 (09:48)
[2024-02-23 11:51] LABS: Glucose,Whole Blood 475 mg/dL (70-110)
--- NOTE | 2024-02-23 12:05 | P.HPIM ---
History of Present Illness H&P Date: 02/23/24 This is a 73-year-old male with medical history of diabetes mellitus, daily tobacco use. Patient returns to the hospital secondary to a PICC line failure. Patient was recently admitted from February 14 to February 18 for amputation of a gangrenous left second toe. Patient was discharged with a PICC line in place with recommendations for cefazolin for 2-week course on discharge through the PICC line. Patient was doing the antibiotics at home had a dose last night on February 20 and the visiting nurse was unable to access his IV yesterday on February 21 Patient to come into the hospital. Does have a history of poorly controlled diabetes at baseline his glucose is up in the 300s on admission. In the ER p atient received alteplase x 2 through the left sided PICC line without success. Case was discussed with Dr Medeiros who is managing the antibiotics no consulted needed but did ok a midline to complete the course of antibiotics. Patient only needs 10 more days. He can be discharged back home after midline. REVIEW OF SYSTEMS: CONSTITUTIONAL: No fever, no malaise, no fatigue. HEENT: No recent visual problems or hearing problems. Denied any sore throat. CARDIOVASCULAR: No chest pain, orthopnea, PND, no palpitations, no syncope. PULMONARY: No shortness of breath, no cough, no hemoptysis. GASTROINTESTINAL: No diarrhea, no nausea, no vomiting, no abdominal pain. NEUROLOGICAL: No headaches, no weakness, no numbness. HEMATOLOGICAL: Denies any bleeding or petechiae. GENITOURINARY: Denies any burning micturition, frequency, or urgency. MUSCULOSKELETAL/RHEUMATOLOGICAL: Denies any joint pain, swelling, or any muscle pain. ENDOCRINE: Denies any polyuria or polydipsia. The rest of the 14-point review of systems is negative. PHYSICAL EXAMINATION: GENERAL: The patient is alert and oriented x3, not in any acute distress. Well developed, well nourished. HEENT: Pupils are round and equally reacting to light. EOMI. No scleral icterus. No conjunctival pallor. Normocephalic, atraumatic. No pharyngeal erythema. No thyromegaly. CARDIOVASCULAR: S1 and S2 present. No murmurs, rubs, or gallops. PULMONARY: Chest is clear to auscultation, no wheezing or crackles. ABDOMEN: Soft, nontender, nondistended, normoactive bowel sounds. No palpable organomegaly. MUSCULOSKELETAL: No joint swelling or deformity. EXTREMITIES: No cyanosis, clubbing, or pedal edema. NEUROLOGICAL: Gross neurological examination did not reveal any focal deficits. SKIN: No rashes. Assessment PICC line failure received alteplase x 2 without success. As above patient can go with midline to complete course of IV cefazolin. Diabetes mellitus type 2 with hyperglycemia poorly controlled levemir increased. Recent left second toe amputation secondary to a gangrenous left toe patient was recently admitted for cellulitis and was discharged on a 2-week course of IV cefazolin through the PICC line he returns as his PICC line is not functioning and vascular was consulted for line placement Chronic nicotine use Prophylaxis DVT prophylaxis Full code The impression and plan of care has been dictated by Tiffanie Cade, Nurse Practitioner as directed. Dr. Africa MD I have performed a history and physical examination and medical decision making of this patient, discussed the same with the dictator, and agree with the dictators assessment and plan as written, documented as a scribe. Based on total visit time, I have performed more than 50% of this visit. Past Medical History Past Medical History: Diabetes Mellitus Additional Past Medical History / Comment(s): HX. of Diverticultis History of Any Multi-Drug Resistant Organisms: None Reported Past Surgical History: Hernia Repair Additional Past Surgical History / Comment(s): Hernia at age 3. Stomach surgery. Colonoscopy. Past Anesthesia/Blood Transfusion Reactions: No Reported Reaction Past Psychological History: No Psychological Hx Reported Smoking Status: Current every day smoker Past Alcohol Use History: None Reported Past Drug Use History: None Reported - Past Family History Mother Family Medical History: No Reported History Medications and Allergies Home Medications Medication Instructions Recorded Confirmed Type ceFAZolin [Kefzol] 2 gm IVP Q8HR #42 each 02/19/24 02/22/24 Rx Insulin Detemir (Levemir) [Levemir] 5 unit SQ DIRECTED 02/22/24 02/22/24 History Allergies Allergy/AdvReac Type Severity Reaction Status Date / Time No Known Allergies Allergy Verified 02/22/24 15:41 Physical Exam Vitals: Vital Signs Temp Pulse Pulse Resp BP BP Pulse Ox 02/23/24 07:32 97.5 F L 95 18 110/68 97 02/23/24 01:09 97.9 F 89 12 133/74 96 02/22/24 18:30 98.0 F 95 16 134/75 95 02/22/24 17:48 99 18 116/76 97 02/22/24 12:37 98.3 F 99 18 111/70 99 Intake and Output 02/22/24 02/23/24 02/23/24 22:59 06:59 14:59 Other: Voiding Method Toilet # Voids 2 1 Weight 79.379 kg Results Labs: Abnormal Lab Results - Last 24 Hours (Table) 02/22/24 02/22/24 02/22/24 Range/Units 16:58 20:34 21:57 POC Glucose (mg/dL) 251 H 360 H 383 H (70-110) mg/dL 02/23/24 02/23/24 Range/Units 05:35 11:49 POC Glucose (mg/dL) 189 H 475 H (70-110) mg/dL Thrombosis Risk Factor Assmnt - Choose All That Apply Any of the Below Risk Factors Present?: No Other Risk Factors: Yes Each Risk Factor Represents 2 Points: Age 61-74 years Other congenital or acquired thrombophilia - If yes, enter type in comment: No Thrombosis Risk Factor Assessment Total Risk Factor Score: 2 Thrombosis Risk Factor Assessment Level: Low Risk Assessment and Plan Time with Patient: Greater than 30
[2024-02-23] MEDS ORDERED: INSULIN ASPART (NovoLOG) 100 UNIT/ML VIAL SQ SCH (12:30)
[2024-02-23] MEDS: INSULIN ASPART (NovoLOG) 100 UNIT/ML VIAL SQ SCH (12:43)
[2024-02-23] MEDS: INSULIN DETEMIR (LEVEMIR) 100 UNIT/ML SYR SQ SCH (12:44)
--- NOTE | 2024-02-23 14:33 | P.DS ---
Providers Date of admission: 02/22/24 16:24 Attending physician: Josiane Story Primary care physician: Sudheer Lubin [facility] Course: This is a 73-year-old male with medical history of diabetes mellitus, daily tobacco use. Patient returns to the hospital secondary to a PICC line failure. Patient was recently admitted from February 14 to February 18 for amputation of a gangrenous left second toe. Patient was discharged with a PICC line in place with recommendations for cefazolin for 2-week course on discharge through the PICC line. Patient was doing the antibiotics at home had a dose last night on February 20 and the visiting nurse was unable to access his IV yesterday on February 21 Dr. Patient to come into the hospital. Does have a history of poorly controlled diabetes at baseline his glucose is up in the 300s on admission. In the ER patient received alteplase x 2 through the left sided PICC line without success. Case was discussed with Dr Medeiros who is managing the antibiotics no consulted needed but did ok a midline to complete the course of antibiotics. Patient only needs 10 more days. He can be discharged back home after midline. REVIEW OF SYSTEMS: CONSTITUTIONAL: No fever, no malaise, no fatigue. HEENT: No recent visual problems or hearing problems. Denied any sore throat. CARDIOVASCULAR: No chest pain, orthopnea, PND, no palpitations, no syncope. PULMONARY: No shortness of breath, no cough, no hemoptysis. GASTROINTESTINAL: No diarrhea, no nausea, no vomiting, no abdominal pain. NEUROLOGICAL: No headaches, no weakness, no numbness. HEMATOLOGICAL: Denies any bleeding or petechiae. GENITOURINARY: Denies any burning micturition, frequency, or urgency. MUSCULOSKELETAL/RHEUMATOLOGICAL: Denies any joint pain, swelling, or any muscle pain. ENDOCRINE: Denies any polyuria or polydipsia. The rest of the 14-point review of systems is negative. PHYSICAL EXAMINATION: GENERAL: The patient is alert and oriented x3, not in any acute distress. Well developed, well nourished. HEENT: Pupils are round and equally reacting to light. EOMI. No scleral icterus. No conjunctival pallor. Normocephalic, atraumatic. No pharyngeal erythema. No thyromegaly. CARDIOVASCULAR: S1 and S2 present. No murmurs, rubs, or gallops. PULMONARY: Chest is clear to auscultation, no wheezing or crackles. ABDOMEN: Soft, nontender, nondistended, normoactive bowel sounds. No palpable organomegaly. MUSCULOSKELETAL: No joint swelling or deformity. EXTREMITIES: No cyanosis, clubbing, or pedal edema. NEUROLOGICAL: Gross neurological examination did not reveal any focal deficits. SKIN: No rashes. Assessment PICC line failure received alteplase x 2 without success. As above patient can go with midline to complete course of IV cefazolin. Diabetes mellitus type 2 with hyperglycemia poorly controlled Recent left second toe amputation secondary to a gangrenous left toe patient was recently admitted for cellulitis and was discharged on a 2-week course of IV cefazolin through the PICC line he returns as his PICC line is not functioning and vascular was consulted for line placement Chronic nicotine use Prophylaxis DVT prophylaxis Full code plan After midline in place patient can be discharge Patient has not taken the glucometer out of the box. Advised to bring to his follow up appointment tomorrow with Dr. Lubin. Patient has been referred to outpatient diabetes education He will discharge on lantus 20 units daily he would benefit form sliding scale insulin however, patient has not even been checking his blood sugar. We will add metformin for now. He has multiple follow ups from his prior discharge that have been reconciled he will need to see Dr Lubin and keep the appt made for tomorrow. The impression and plan of care has been dictated by Tiffanie Cade, Nurse Practitioner as directed. Dr. Africa MD I have performed a history and physical examination and medical decision making of this patient, discussed the same with the dictator, and agree with the dictators assessment and plan as written, documented as a scribe. Based on total visit time, I have performed more than 50% of this visit. Patient Condition at Discharge: Stable Plan - Discharge Summary Discharge Rx Participant: No New Discharge Prescriptions: New Famotidine [Pepcid] 20 mg PO DAILY #30 tablet Insulin Glargine,Hum.rec.anlog [Lantus Solostar Pen] 20 units SQ DAILY #2 each Continue ceFAZolin [Kefzol] 2 gm IVP Q8HR #42 each Discontinued Insulin Detemir (Levemir) [Levemir] 5 unit SQ DIRECTED Discharge Medication List ceFAZolin [Kefzol] 2 gm IVP Q8HR #42 each 02/19/24 [Rx] Famotidine [Pepcid] 20 mg PO DAILY #30 tablet 02/23/24 [Rx] Insulin Glargine,Hum.rec.anlog [Lantus Solostar Pen] 20 units SQ DAILY #2 each 02/23/24 [Rx] Follow up Appointment(s)/Referral(s): Sudheer Lubin MD [Primary Care Provider] - 02/24/24 2:10 pm Halina June DO [STAFF PHYSICIAN] - 03/03/24 1:30 pm [facility] [REFERRING] - As Needed ([facility] will call you this evening to arrange delivery of your next shipment of IV antibiotics. ) [facility] [NON-STAFF] - 03/03/24 2:00 pm Tyler Medeiros MD [STAFF PHYSICIAN] - 10 Days [facility] Visiting [facility], [NON-STAFF] - As Needed ([facility] will call you to schedule your in home nursing visits for IV antibiotic infusions. ) Ambulatory/Diagnostic Orders: Basic Metabolic Panel [LAB.AMB] Time Frame: 3 Days, Location: None Selected Activity/Diet/Wound Care/Special Instructions: Stop the levemir given on prior discharge Begin lantus 20 units daily and monitor blood sugar as recommended prior Please bring your glucometer to your appointment with Dr. Lubin Tomorrow Follow up with Dr Dillard with endocrinology Continue 10 days of IV cefazolin. Follow up with Dr. Medeiros Recommend to follow up with outpatient diabetes education offered through [facility] [email or web address] [phone] [email or web address] [address] Discharge Disposition: HOME WITH HOME HEALTH SERVICES
[2024-02-23 15:48] VITALS: BP 130/53; PULSE 91; RESP 19; TEMP 97
== END 2024-02-23 16:55 | disposition home health service (06) ==
LOC: EC 12:17 → 4SSUR 16:24
PROVIDERS: ADMIT Hospitalist; ATTEND Hospitalist
DX: T82.594A Other mechanical complication of infusion catheter, initial encounter (principal); Y82.8 Other medical devices associated with adverse incidents; E11.628 Type 2 diabetes mellitus with other skin complications; L08.9 Local infection of the skin and subcutaneous tissue, unspecified; E11.65 Type 2 diabetes mellitus with hyperglycemia; F17.200 Nicotine dependence, unspecified, uncomplicated; Z89.422 Acquired absence of other left toe(s); Z79.4 Long term (current) use of insulin
CPT/HCPCS: 96366 ×2; 96376; 96365; 96375; 99284; 36410; 76937; G0378 ×2; C1751; J0690 ×2; J2997

== ENCOUNTER 2024-05-27 09:10 | Day surgery (SDC) | payer MEDICARE ==
[2024-05-21 15:28] VITALS: BMI 26.8
[~2024-05-27 09:10] MED LIST changes: -BUPIVACAINE (PF) 0.5% 4.5 ML, HYALURONIDASE, HUMAN RECOMB 150 UNIT, LIDOCAINE 2% (PF) 9... IO NR; -CYCLOPENTOLATE 1% OPHTH SOLN 2 ML BTL OP NR; -LACTATED RINGERS 1,000 ML IV SCH; -MOXIFLOXACIN HCL 0.5% DROPS 3 ML BTL OP ONE; -TETRACAINE 0.5% OPHTH (PF) DROPS 4 ML BTL OP ONE; -TIMOLOL 0.5% OPHTH DROPS 5 ML BTL OP ONE; -TOBRA-DEXAMET 0.3-0.1% OPHTH DROPS 2.5 ML BTL OPHTHALMIC NR; +droPERidol 5 MG/2 ML VIAL IVP ONE
[2024-05-27 09:53] LABS: Glucose,Whole Blood 184 mg/dL (70-110)
[2024-05-27] MEDS: ONDANSETRON 4 MG/2 ML VIAL IVP ONE (09:55)
[2024-05-27] MEDS: DEXAMETHASONE SOD PHOSPHATE 4 MG/ML 1 ML VIAL IV ONE (09:56)
[2024-05-27] MEDS: IPRATROPIUM-ALBUTEROL 3 ML NEB INHALATION STA (09:56)
[2024-05-27] MEDS: LACTATED RINGERS 1,000 ML IV SCH (09:57)
[2024-05-27] MEDS: IV FLUID CONTINUATION 1,000 ML IV ONE (09:58)
[2024-05-27 10:06] LABS: African American GFR (CKD) >90 (>60 ml/min/1.73 sqM); Anion Gap 8 mmol/L; Blood Urea Nitrogen 17 mg/dL (9-20); Calcium 9.7 mg/dL (8.4-10.2); Carbon Dioxide 25 mmol/L (22-30); Chloride 103 mmol/L (98-107); Glucose 181 mg/dL (74-99); Non-African American GFR(CKD) >90 (>60 ml/min/1.73 sqM); Potassium 4.7 mmol/L (3.5-5.1); Sodium 136 mmol/L (137-145)
[2024-05-27] MEDS ORDERED: PHENYLEPHRINE 10 MG/ML VIAL ONE (10:06)
[2024-05-27] MEDS ORDERED: LIDOCAINE 1% INJ 10MG/ML (20 ML MDV) ONE (10:06)
[2024-05-27] MEDS ORDERED: MIDAZOLAM 2 MG/2 ML VIAL ONE (10:06)
[2024-05-27] MEDS ORDERED: fentaNYL (PF) 50 MCG/ML 2 ML AMP ONE (10:06)
[2024-05-27] MEDS ORDERED: PROPOFOL 10 MG/ML 20 ML VIAL IV ONE (10:06)
[2024-05-27 11:08] VITALS: TEMP 97
[2024-05-27] MEDS: HYDROmorphone 0.5 MG/0.5 ML SYRINGE IVP PRN (11:19)
[2024-05-27] MEDS: LACTATED RINGERS 1,000 ML IV ONE (11:38)
--- NOTE | 2024-05-27 11:55 | P.OP ---
Date of Procedure: 05/27/24 Description of Procedure: SURGEON: Halina June DO PSYCHIATRIC NURSE: None PREOPERATIVE DIAGNOSIS: Left fifth toe wound, clinical osteomyelitis POSTOPERATIVE DIAGNOSIS: Same OPERATION: Left fifth toe amputation. ANESTHESIA: General LMA ESTIMATED BLOOD LOSS: 10 cc SPECIMENS REMOVED: Left fifth toe COMPLICATIONS: None immediately apparent OPERATIVE FINDINGS: Patient is a 74-year-old male with history of second toe amputation for diabetic foot ulceration and osteomyelitis who had healing of that wound however with the offloading shoe did obtain a wound at the lateral portion of the fifth metatarsal head that is down to bone with evidence of infection. He is here today for debridement versus amputation of the site. Risk and benefits were discussed. He seemingly understood and was willing to proceed. DESCRIPTION OF PROCEDURE: This patient was brought to the operating room, and given local and IV sedation. The operative foot was prepped and draped in sterile manner. An incision was made at the base of the fifth toe deep into skin and fascia on plantar and dorsal aspect until we reached the head of the metatarsal bone. This patient had osteomyelitis of the left clinical foot. The head of the metatarsal was from the fifth toe and had osteomyelitis of the head of the metatarsal bone. The tendons were divided in plantar and dorsal aspects. The fifth toe was removed. The metatarsal was transected with a bone cutter. Rasp and rongeur were used to smooth the bone edge. Base of the wound looked clean, and the wound was copiously irrigated with saline. Tissue was approximated with 3-0 Vicryl interrupted sutures and partially closed the skin 2-0 nylon.. Hemostasis was well controlled and pressure dressing was applied. The patient tolerated the procedure well. Plan - Discharge Summary Discharge Rx Participant: No New Discharge Prescriptions: No Action metFORMIN HCL 500 mg PO BID #60 tablet Cephalexin [Keflex] 500 mg PO Q12HR Insulin Glargine,Hum.rec.anlog [Lantus Solostar Pen] 20 units SQ DAILY Discharge Medication List metFORMIN HCL 500 mg PO BID #60 tablet 02/23/24 [Rx] Cephalexin [Keflex] 500 mg PO Q12HR 05/21/24 [History] Insulin Glargine,Hum.rec.anlog [Lantus Solostar Pen] 20 units SQ DAILY 05/21/24 [History] Follow up Appointment(s)/Referral(s): Halina June DO [STAFF PHYSICIAN] - 1 Week Activity/Diet/Wound Care/Special Instructions: Resume regular diet. Resume activity, nonweightbearing left lower extremity as much as possible. Otherwise heel touch weightbearing with postoperative shoe. Continue oral antibiotics until completion. May discontinue the gentamicin cream on the wounds. Utilize Aquacel Ag at the lateral foot wound as well as the great toe wound. Simple saline wet-to-dry dressing at the fifth toe amputation site. Change daily. Discharge Disposition: HOME WITH HOME HEALTH SERVICES
[2024-05-27] MEDS: Acetaminophen-Codeine 300-30mg TAB PO STA (12:12)
[2024-05-27 12:18] VITALS: BP 140/72; PULSE 84
== END 2024-05-27 12:53 | disposition home health service (06) ==
LOC: OR 09:10
PROVIDERS: ATTEND Surgery
DX: I96 Gangrene, not elsewhere classified (principal); E11.621 Type 2 diabetes mellitus with foot ulcer; M86.9 Osteomyelitis, unspecified; F17.210 Nicotine dependence, cigarettes, uncomplicated; Z79.84 Long term (current) use of oral hypoglycemic drugs; Z79.4 Long term (current) use of insulin
CPT/HCPCS: 88305; 80048; 88311; 28810; J2250; J1100; J0690; J2405; J2001; J3010; J2704; J1170; J2371

== ENCOUNTER 2024-07-06 06:04 | Day surgery (SDC) | payer MEDICARE ==
[2024-07-01 10:20] VITALS: BMI 27.3
[2024-07-06] MEDS ORDERED: LIDOCAINE 1% (10MG/ML) FOR IV START INTRADERMA PRN (06:41)
[2024-07-06 06:53] VITALS: RESP 16; TEMP 97.4
[2024-07-06] MEDS ORDERED: HYDROmorphone 0.5 MG/0.5 ML SYRINGE IVP PRN (07:00)
[2024-07-06] MEDS ORDERED: fentaNYL (PF) 50 MCG/ML 2 ML AMP IV PRN (07:00)
[2024-07-06] MEDS: LACTATED RINGERS 1,000 ML IV SCH (07:02)
[2024-07-06] MEDS: IV FLUID CONTINUATION 1,000 ML IV ONE (07:02)
[2024-07-06 07:03] LABS: Glucose,Whole Blood 150 mg/dL (70-110)
[2024-07-06] MEDS: DEXAMETHASONE SOD PHOSPHATE 4 MG/ML 1 ML VIAL IV ONE (07:06)
[2024-07-06] MEDS: ONDANSETRON 4 MG/2 ML VIAL IVP ONE (07:06)
[2024-07-06] MEDS ORDERED: PROPOFOL 10 MG/ML 20 ML VIAL IV ONE (07:25)
[2024-07-06] MEDS ORDERED: fentaNYL (PF) 50 MCG/ML 2 ML AMP ONE (07:25)
[2024-07-06] MEDS ORDERED: MIDAZOLAM 2 MG/2 ML VIAL ONE (07:25)
[2024-07-06] MEDS ORDERED: KETAMINE HCL IN 0.9 % NACL 50 MG/5 ML SYRINGE ONE (07:25)
[2024-07-06] MEDS ORDERED: LIDOCAINE 1% INJ 10MG/ML (20 ML MDV) ONE (07:25)
[2024-07-06] MEDS: LIDOCAINE 1% INJ 10MG/ML (20 ML MDV) SQ ONE ×2 (07:53)
--- NOTE | 2024-07-06 08:46 | P.OP ---
Date of Procedure: 07/06/24 Description of Procedure: Preoperative diagnosis: Left lower extremity nonhealing wound, previous fourth and fifth toe amputation Postoperative diagnosis: Same Procedure: Sharp excisional debridement left foot wound 8.5 x 1.5 x 0.4 cm down to the level of bone, excision of fifth metatarsal Placement of skin substitute, PuraPly 500 g, 4 x 4 centimeter sheet Wound VAC Surgeon: Halina June D.O. EBL: Less than 10 cc IV fluids: See records Urine output: Not measured Drains: None, wound VAC Complications: None immediately apparent Condition: Stable to recovery Operative indication and findings: Patient is a 74-year-old male with previous left fifth toe amputation who has area of nonhealing wound and evidence of bone extruding previously at the base of the fifth metatarsal amputation site therefore he was brought to the operating room for excision of this along with skin substitute placement and wound VAC therapy. Risks and benefits were discussed. He seemed understood and was willing to proceed. Procedure in detail: Patient was taken to the operative suite and placed in supine position. The left lower extremity was prepped and draped in usual sterile fashion. A preprocedural timeout was performed, all parties were in agreement. The area was anesthetized with 1% lidocaine plain and the overlying nonviable tissue was sharply excised with curette and scalpel. This did end up connecting the 2 previous wounds. A portion of the bone of the fifth metatarsal was excised. Overall the wound appeared relatively healthy as compared to previous, the areas were copiously irrigated. Healthy granulation tissue was apparent. The 500 g of the cellular lysed PuraPly was placed followed by 4 x 4 sheet which was cut to size. It was secured in place with Adaptic and chromic suture followed by a wound VAC. The VAC was placed and seal was adequate with no leak. Patient was transferred recovery in stable condition having tolerated the procedure well. Plan - Discharge Summary Discharge Rx Participant: No New Discharge Prescriptions: No Action metFORMIN HCL 500 mg PO BID #60 tablet Cephalexin [Keflex] 500 mg PO Q12HR Discharge Medication List metFORMIN HCL 500 mg PO BID #60 tablet 02/23/24 [Rx] Cephalexin [Keflex] 500 mg PO Q12HR 05/21/24 [History] Follow up Appointment(s)/Referral(s): June,Halina, DO [STAFF PHYSICIAN] - 1 Week Activity/Diet/Wound Care/Special Instructions: Leave wound VAC in place for 1 week, call home health nurse or my office if there is issue with the VAC itself, may change as needed for drainage or m alfunction otherwise. On the right lower extremity, apply silver alginate to the plantar wound, 4 x 4 and gauze roll change dressing daily. Continue aggressive offloading of the bilateral lower extremities. May continue to sponge bath. Do not get wounds wet, no soaking. Resume regular diet Resume home medications Discharge Disposition: HOME WITH HOME HEALTH SERVICES
[2024-07-06 08:51] VITALS: BP 145/65; PULSE 80
== END 2024-07-06 09:10 | disposition home health service (06) ==
LOC: OR 06:04
PROVIDERS: ATTEND Surgery
DX: S91.302A Unspecified open wound, left foot, initial encounter (principal); E11.51 Type 2 diabetes mellitus with diabetic peripheral angiopathy without gangrene; F17.210 Nicotine dependence, cigarettes, uncomplicated; Z79.84 Long term (current) use of oral hypoglycemic drugs; Z89.422 Acquired absence of other left toe(s); Z79.899 Other long term (current) drug therapy; X58.XXXA Exposure to other specified factors, initial encounter
CPT/HCPCS: 11044; Q4196; J2250; J1100; J0690; J2405; J2003; J3010; J2704

== ENCOUNTER 2024-08-20 08:30 | Emergency (ER) | payer MEDICARE ==
[2024-08-20 08:46] VITALS: TEMP 97.1
--- NOTE | 2024-08-20 08:47 | ED ---
General Adult HPI - General Stated complaint: Hyperglycemia Time Seen by Provider: 08/20/24 08:32 Source: patient, EMS, RN notes reviewed Mode of arrival: EMS Limitations: no limitations - History of Present Illness Initial comments: Patient is a 74-year-old male presenting to the emergency department with concerns with fall. Patient states he was walking into the bathroom when he slipped and fell. Patient did fall back and hit the back of his head. Patient denies loss of consciousness. EMS reports that patient was a little bit confused in route. Patient denies any confusion. Patient denies any significant discomfort. Patient denies weakness. EMS did report that blood sugar was running high. Patient does complain of some polyuria and polydipsia - Related Data Home Medications Medication Instructions Recorded Confirmed Gentamicin 0.1% Cream 1 applic TOPICAL DAILY 08/20/24 08/20/24 Previous Rx's Medication Instructions Recorded metFORMIN HCL 500 mg PO BID #60 tablet 02/23/24 Allergies Allergy/AdvReac Type Severity Reaction Status Date / Time No Known Allergies Allergy Verified 08/20/24 10:39 Review of Systems ROS Statement: Those systems with pertinent positive or pertinent negative responses have been documented in the HPI. ROS Other: All systems not noted in ROS Statement are negative. Constitutional: Denies: fever Eyes: Denies: eye pain ENT: Denies: ear pain Respiratory: Denies: cough, dyspnea Cardiovascular: Denies: chest pain Endocrine: Reports: polydipsia, polyuria Gastrointestinal: Denies: abdominal pain Musculoskeletal: Denies: back pain Skin: Reports: lesions (Foot lesions that patient sees wound care for weekly as well as Dr. June) Neurological: Reports: as per HPI. Denies: weakness Past Medical History Past Medical History: Diabetes Mellitus, GI Bleed, Hearing Disorder / Deafness Additional Past Medical History / Comment(s): unhealing 2 wounds left foot -from rubbing on medical boot, HX of Diverticultis. Type IIDiabetic. SOBOBA. Perforated ulcer. History of Any Multi-Drug Resistant Organisms: None Reported Past Surgical History: Hernia Repair Additional Past Surgical History / Comment(s): Hernia at age 3. Stomach surgery. Colonoscopy,amputation 2nd digit left foot. Recent amputation of the 5th digit foot -May 2024. Past Anesthesia/Blood Transfusion Reactions: No Reported Reaction Additional Past Anesthesia/Blood Transfusion Reaction / Comment(s): no hx blood transfusion Smoking Status: Current every day smoker - Past Family History Sister(s) Family Medical History: Cancer Additional Family Medical History / Comment(s): Breast cancer General Exam Limitations: no limitations General appearance: alert, in no apparent distress Head exam: Present: atraumatic, normocephalic Eye exam: Present: normal appearance, PERRL, EOMI ENT exam: Present: normal oropharynx Neck exam: Present: normal inspection. Absent: tenderness Respiratory exam: Present: normal lung sounds bilaterally Cardiovascular Exam: Present: regular rate, normal rhythm GI/Abdominal exam: Present: soft. Absent: tenderness Extremities exam: Present: full ROM, other (Foot ulcers. Previous toe amputations). Absent: tenderness Neurological exam: Present: alert, oriented X3, CN II-XII intact. Absent: motor sensory deficit Expanded Neurological exam: Present: protecting the airway Patient oriented to: Present: person, place, time Speech: Present: fluid speech Cranial nerves: EOM's Intact: Normal Motor strength exam: RUE: 5, LUE: 5, RLE: 5, LLE: 5 Eye Response: (4) open spontaneously Motor Response: (6) obeys commands Verbal Response: (5) oriented Psychiatric exam: Present: normal affect, normal mood Skin exam: Present: other (Bilateral foot ulcers stage II/III left side of each foot that do not appear infected.) Course Vital Signs 08/20/24 08/20/24 08/20/24 08:31 09:00 09:30 Temperature 97.1 F L Pulse Rate 89 87 88 Respiratory 19 18 19 Rate Blood Pressure 129/68 138/76 132/74 O2 Sat by Pulse 97 100 97 Oximetry EKG Findings - EKG Results: EKG: interpreted by ERMD, sinus rhythm, normal axis, normal QRS, normal ST/T Medical Decision Making - Medical Decision Making Was pt. sent in by a medical professional or institution (, PA, [employer]ORAT[employer] TECHNICIAN, urgent care, hospital, or intermediate...) When possible be specific @ -No Did you speak to anyone other than the patient for history (EMS, parent, family, police, friend...)? What history was obtained from this source @ -EMS provided history of patient having some confusion earlier Did you review nursing and triage notes (agree or disagree)? Why? @ -I reviewed and agree with nursing and triage notes Were old charts reviewed (outside hosp., previous admission, EMS record, old EKG, old radiological studies, urgent care reports/EKG's, intermediate records)? Report findings @ -No old charts were reviewed Differential Diagnosis (chest pain, altered mental status, abdominal pain women, abdominal pain men, vaginal bleeding, weakness, fever, dyspnea, syncope, headache, dizziness, GI bleed, back pain, seizure, CVA, palpatations, mental health, musculoskeletal)? @ -Differential Headache: Migraine, tension, cluster, carbon monoxide, central venous thrombosis, pension karma temporal arteritis, acute closure glaucoma, intercranial hemorrhage, mastoiditis, sinusitis, head injury, this is not meant to be an all-inclusive list. EKG interpreted by me (3pts min.). @ -As above X-rays interpreted by me (1pt min.). @ -Chest x-ray shows nonspecific interstitial changes CT interpreted by me (1pt min.). @ -CT scan of the brain shows degenerative changes, no acute intercranial abnormality. CT scan of the neck shows dish, no evidence of fracture U/S interpreted by me (1pt. min.). @ -None done What testing was considered but not performed or refused? (CT, X-rays, U/S, labs)? Why? @ -None What meds were considered but not given or refused? Why? @ -None Did you discuss the management of the patient with other professionals (professionals i.e. , PA, [employer]AT[employer] TECHNICIAN, lab, RT, psych nurse, social staff worker, exercise science instructor, teacher, personnel training officer, caseworker intake)? Give summary @ -No Was smoking cessation discussed for >3mins.? @ -No Was critical care preformed (if so, how long)? @ -No Were there social determinants of health that impacted care today? How? (Homelessness, low income, unemployed, alcoholism, drug addiction, transportatio n, low edu. Level, literacy, decrease access to med. care, fci, rehab)? @ -No Was there de-escalation of care discussed even if they declined (Discuss DNR or withdrawal of care, Hospice)? DNR status @ -No What co-morbidities impacted this encounter? (DM, HTN, Smoking, COPD, CAD, Cancer, CVA, ARF, Chemo, Hep., AIDS, mental health diagnosis, sleep apnea, morbid obesity)? @ -None Was patient admitted / discharged? Hospital course, mention meds given and route, prescriptions, significant lab abnormalities, going to OR and other pertinent info. @ -Patient presents with fall and head injury. Patient had some mild reported confusion resolved prior to arrival. Patient remains appropriate on r eevaluation. Patient is updated. Patient is symptom-free and requesting discharge home. Evaluation and exam unremarkable. Patient denies having syncopal episode or loss of consciousness Undiagnosed new problem with uncertain prognosis? @ -No Drug Therapy requiring intensive monitoring for toxicity (Heparin, Nitro, Insulin, Cardizem)? @ -No Were any procedures done? @ -No Diagnosis/symptom? @ -Fall, concussion Acute, or Chronic, or Acute on Chronic? @ -Acute, acute Uncomplicated (without systemic symptoms) or Complicated (systemic symptoms)? @ -Default Side effects of treatment? @ -No Exacerbation, Progression, or Severe Exacerbation? @ -No Poses a threat to life or bodily function? How? (Chest pain, [place], [place], pneumonia, PE, COPD, DKA, ARF, appy, cholecystitis, CVA, Diverticulitis, Homicidal, Suicidal, threat to staff... and all critical care pts) @ -Threat to neurological function - Lab Data Result diagrams: 08/20/24 08:48 08/20/24 08:48 Lab Results 08/20/24 08/20/24 08/20/24 Range/Units 08:48 08:48 08:48 WBC 8.4 (3.8-10.6) k/uL RBC 4.15 L (4.30-5.90) m/uL Hgb 13.4 (13.0-17.5) gm/dL Hct 41.2 (39.0-53.0) % MCV 99.4 (80.0-100.0) fL MCH 32.3 (25.0-35.0) pg MCHC 32.5 (31.0-37.0) g/dL RDW 12.3 (11.5-15.5) % Plt Count 175 (150-450) k/uL MPV 9.0 Neutrophils % 74 % Lymphocytes % 16 % Monocytes % 6 % Eosinophils % 2 % Basophils % 0 % Neutrophils # 6.3 (1.3-7.7) k/uL Lymphocytes # 1.3 (1.0-4.8) k/uL Monocytes # 0.5 (0-1.0) k/uL Eosinophils # 0.2 (0-0.7) k/uL Basophils # 0.0 (0-0.2) k/uL PT 10.9 (10.0-12.5) sec INR 1.0 (<1.2) APTT 21.8 L (22.0-30.0) sec Sodium 137 (137-145) mmol/L Potassium 4.5 (3.5-5.1) mmol/L Chloride 107 (98-107) mmol/L Carbon Dioxide 23 (22-30) mmol/L Anion Gap 7 mmol/L BUN 17 (9-20) mg/dL Creatinine 0.67 (0.66-1.25) mg/dL Est GFR (CKD-EPI)AfAm >90 (>60 ml/min/1.73 sqM) Est GFR (CKD-EPI)NonAf >90 (>60 ml/min/1.73 sqM) Glucose 302 H (74-99) mg/dL POC Glucose (mg/dL) (70-110) mg/dL POC Glu Field Map Technician ID Calcium 9.0 (8.4-10.2) mg/dL Total Bilirubin 0.6 (0.2-1.3) mg/dL AST 32 (17-59) U/L ALT 23 (4-49) U/L Alkaline Phosphatase 73 (38-126) U/L Total Protein 6.6 (6.3-8.2) g/dL Albumin 3.6 (3.5-5.0) g/dL Serum Alcohol <10 mg/dL Acetone, Qual Negative (Negative) 08/20/24 Range/Units 08:50 WBC (3.8-10.6) k/uL RBC (4.30-5.90) m/uL Hgb (13.0-17.5) gm/dL Hct (39.0-53.0) % MCV (80.0-100.0) fL MCH (25.0-35.0) pg MCHC (31.0-37.0) g/dL RDW (11.5-15.5) % Plt Count (150-450) k/uL MPV Neutrophils % % Lymphocytes % % Monocytes % % Eosinophils % % Basophils % % Neutrophils # (1.3-7.7) k/uL Lymphocytes # (1.0-4.8) k/uL Monocytes # (0-1.0) k/uL Eosinophils # (0-0.7) k/uL Basophils # (0-0.2) k/uL PT (10.0-12.5) sec INR (<1.2) APTT (22.0-30.0) sec Sodium (137-145) mmol/L Potassium (3.5-5.1) mmol/L Chloride (98-107) mmol/L Carbon Dioxide (22-30) mmol/L Anion Gap mmol/L BUN (9-20) mg/dL Creatinine (0.66-1.25) mg/dL Est GFR (CKD-EPI)AfAm (>60 ml/min/1.73 sqM) Est GFR (CKD-EPI)NonAf (>60 ml/min/1.73 sqM) Glucose (74-99) mg/dL POC Glucose (mg/dL) 329 H (70-110) mg/dL POC Glu Field Map Technician ID Bandar Zelaya Calcium (8.4-10.2) mg/dL Total Bilirubin (0.2-1.3) mg/dL AST (17-59) U/L ALT (4-49) U/L Alkaline Phosphatase (38-126) U/L Total Protein (6.3-8.2) g/dL Albumin (3.5-5.0) g/dL Serum Alcohol mg/dL Acetone, Qual (Negative) Disposition Clinical Impression: Fall, Concussion Disposition: HOME SELF-CARE Condition: Stable Instructions (If sedation given, give patient instructions): Fall Prevention (ED), Concussion (ED) Additional Instructions: Avoid any potential injuries to the head. Please do follow-up with your primary care physician beginning of the week. Return for confusion, difficulty walking, increased pain, vomiting, visual changes, worsening symptoms or any other concerns. Is patient prescribed a controlled substance at d/c from ED?: No Referrals: Sudheer Lubin MD [Primary Care Provider] - 1-2 days Time of Disposition: 11:28
[2024-08-20 08:52] LABS: Glucose,Whole Blood 329 mg/dL (70-110)
[2024-08-20 08:57] LABS: Basophils % (A) 0 %; Eosinophils # (A) 0.2 k/uL (0-0.7); Eosinophils % (A) 2 %; HCT 41.2 % (39.0-53.0); HGB 13.4 gm/dL (13.0-17.5); Lymphocytes # (A) 1.3 k/uL (1.0-4.8); Lymphocytes % (A) 16 %; MCH 32.3 pg (25.0-35.0); MCHC 32.5 g/dL (31.0-37.0); MCV 99.4 fL (80.0-100.0); Monocytes # (A) 0.5 k/uL (0-1.0); Monocytes % (A) 6 %; Neutrophils # (A) 6.3 k/uL (1.3-7.7); Neutrophils % (A) 74 %; Platelet Count 175 k/uL (150-450); RBC 4.15 m/uL (4.30-5.90); RDW 12.3 % (11.5-15.5); WBC 8.4 k/uL (3.8-10.6)
--- NOTE | 2024-08-20 09:21 | XR ---
EXAMINATION TYPE: XR chest 1V portable DATE OF EXAM: 08/20/2024 8:58 AM COMPARISON: None CLINICAL INDICATION: Male, 74 years old with confusion, history of altered mental status, , FINDINGS: Heart upper limits of normal in size. Mild hyperinflation. Mild interstitial densities bilaterally. S cattered mild atherosclerotic calcification throughout the aorta. No norma consolidation or pleural e ffusion. IMPRESSION: Mild bilateral interstitial densities could reflect bronchitis, chronic asthma, or subtle underlying atypical pneumonia. Clinically correlate. [facility], , 08/20/2024 9:19 AM
[2024-08-20 09:24] LABS: Prothrombin Time 10.9 sec (10.0-12.5)
[2024-08-20 09:34] LABS: ALT 23 U/L (4-49); African American GFR (CKD) >90 (>60 ml/min/1.73 sqM); Albumin 3.6 g/dL (3.5-5.0); Alcohol <10 mg/dL; Anion Gap 7 mmol/L; Blood Urea Nitrogen 17 mg/dL (9-20); Carbon Dioxide 23 mmol/L (22-30); Chloride 107 mmol/L (98-107); Glucose 302 mg/dL (74-99); Non-African American GFR(CKD) >90 (>60 ml/min/1.73 sqM); Sodium 137 mmol/L (137-145); Total Bilirubin 0.6 mg/dL (0.2-1.3); Total Protein 6.6 g/dL (6.3-8.2)
[2024-08-20 09:37] LABS: AST 32 U/L (17-59); Alkaline Phosphatase 73 U/L (38-126); Potassium 4.5 mmol/L (3.5-5.1)
[2024-08-20 09:42] LABS: Partial Thromboplastin Time 21.8 sec (22.0-30.0)
[2024-08-20] MEDS: INSULIN REGULAR 100 UNIT/ML VIAL (IM/SQ) SQ ONE (10:15)
--- NOTE | 2024-08-20 11:04 | CT ---
EXAMINATION TYPE: CT brain gabby wo con DATE OF EXAM: 08/20/2024 9:20 AM COMPARISON: None. CLINICAL INDICATION: Male, 74 years old with pain after fall Technique: Examination of the head was done in axial plane without intravenous contrast. Coronal and sagittal reconstructions performed. CT of the cervical spine was obtained in axial plane without intravenous injection of contrast mater ial. Coronal and sagittal reformatted images were obtained from the axial views for evaluation of f ractures, spinal alignment and canal. CT DLP: 1404 mGycm, Automated exposure control for dose reduction was used. FINDINGS: Head: There is no evidence of acute intracranial hemorrhage, acute ischemic changes, mass, mass-effect, or extra-axial fluid collection. There is no effacement of cerebral sulci or basal subarachnoid cister ns. There is no midline shift. Arellano-white matter distinction is preserved. Mild to moderate generalized supratentorial volume loss. Secondary mild ventricular prominence. 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 Moderate patchy white matter hypodensities both cerebral hemispher es. Left nasal septal deviation. Paranasal sinuses and mastoid air cells well pneumatized. Orbits and haim bes are intact. Cervical spine: No craniocervical junction abnormality, predental space widening, or prevertebral soft tissue swellin g. Degenerative ankylosis at the C1 dens articulation. There is straightening of the normal cervical lordosis. Trace grade 1 anterolisthesis C2-C3 and C3-C4 . There is bulky bridging C4 down through the T2 levels. Disc osteophyte complex at C4-C5 contributes t o moderate focal spinal canal stenosis. No acute fracture seen of the cervical spine. Variable moderate bilateral neuroforaminal stenoses. Emphysematous change of the visualized upper lungs. Asymmetric degenerative change right sternoclavic ular joint. Sagittal and coronal reformatted images confirm above findings. COMBINED IMPRESSION: 1. Head: Mild to moderate cerebral atrophy. Moderate burden of chronic small vessel ischemic disease. No acute intracranial abnormality seen. 2. 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 Degenerative grade 1 anterolisthesis C2-C 3 and C3-C4. Disc osteophyte complex at C4-C5 contributes to moderate focal spinal canal stenosis. No acute fracture of the cervical spine. [facility], , 08/20/2024 11:02 AM
[2024-08-20 12:46] VITALS: BP 134/73; PULSE 91; RESP 20
== END 2024-08-20 12:46 | disposition home or self-care (01) ==
LOC: EC 08:30
DX: S06.0XAA Concussion with loss of consciousness status unknown, initial encounter (principal); R40.2410 Glasgow coma scale score 13-15, unspecified time; F17.200 Nicotine dependence, unspecified, uncomplicated; W01.0XXA Fall on same level from slipping, tripping and stumbling without subsequent striking against object, initial encounter; Y93.01 Activity, walking, marching and hiking
CPT/HCPCS: 99285; 96372; 36415; 93005; 80053; 82009; 85025; 85610; 85730; 71045; 72125; 70450; G0480; 80320

== ENCOUNTER 2024-09-18 22:28 | Inpatient (IN) | payer MEDICARE ==
[2024-09-18] MEDS: SODIUM CHLORIDE 0.9% 500 ML 500 ML IV STA (22:40)
--- NOTE | 2024-09-18 22:42 | ED ---
General Adult HPI - General Chief complaint: Fall Stated complaint: Fall Time Seen by Provider: 09/18/24 22:31 Source: EMS Mode of arrival: EMS - History of Present Illness Initial comments: Dictation was produced using LMN-1 dictation software. please excuse any grammatical, word or spelling errors. Chief Complaint: 74-year-old male with fall History of Present Illness: Patient 74-year-old male he presents emergency department after fall. Patient has chronic comorbidities including diabetes GI bleed. He fell today and was found to be confused per EMS. Patient not sure what medications he takes. Allegedly takes anticoagulation medications. Patient states he opened the sliding door when all of a sudden he noticed he was on the ground. Not sure if he lost consciousness. Denies any neck pain. Denies any alcohol intake today. Does not take any pain medications. The ROS documented in this emergency department record has been reviewed and confirmed by me. Those systems with pertinent positive or negative responses have been documented in the HPI. All other systems are other negative and/or noncontributory. - Related Data Home Medications Medication Instructions Recorded Confirmed Gentamicin 0.1% Cream 1 applic TOPICAL DAILY 08/20/24 08/20/24 Previous Rx's Medication Instructions Recorded metFORMIN HCL 500 mg PO BID #60 tablet 02/23/24 Allergies Allergy/AdvReac Type Severity Reaction Status Date / Time No Known Allergies Allergy Verified 08/20/24 10:39 Review of Systems ROS Statement: Those systems with pertinent positive or pertinent negative responses have been documented in the HPI. ROS Other: All systems not noted in ROS Statement are negative. Past Medical History Past Medical History: Diabetes Mellitus, GI Bleed, Hearing Disorder / Deafness Additional Past Medical History / Comment(s): unhealing 2 wounds left foot -from rubbing on medical boot, HX of Diverticultis. Type IIDiabetic. [place]. Perforated ulcer. History of Any Multi-Drug Resistant Organisms: None Reported Past Surgical History: Hernia Repair Additional Past Surgical History / Comment(s): Hernia at age 3. Stomach surgery. Colonoscopy,amputation 2nd digit left foot. Recent amputation of the 5th digit foot -May 2024. Past Anesthesia/Blood Transfusion Reactions: No Reported Reaction Additional Past Anesthesia/Blood Transfusion Reaction / Comment(s): no hx blood transfusion Past Psychological History: No Psychological Hx Reported Smoking Status: Current every day smoker - Past Family History Sister(s) Family Medical History: Cancer Additional Family Medical History / Comment(s): Breast cancer General Exam - General Exam Comments Initial Comments: PHYSICAL EXAM: General Impression: Alert and oriented x3, not in acute distress HEENT: 1 cm scalp parietal laceration extra-ocular movements intact, pupils equal and reactive to light bilaterally, mucous membranes moist. Cardiovascular: Heart regular rate and rhythm Chest: Able to complete full sentences, no retractions, no tachypnea Abdomen: abdomen soft, non-tender, non-distended, no organomegaly Musculoskeletal: Pulses present and equal in all extremities, no peripheral edema Motor: no focal deficits noted Neurological: CN II-XII grossly intact, no focal motor or sensory deficits noted Skin: Intact with no visualized rashes Psych: Normal affect and mood Course Vital Signs 09/18/24 22:29 Temperature 99.9 F H Pulse Rate 117 H Respiratory 20 Rate Blood Pressure 137/81 O2 Sat by Pulse 97 Oximetry Procedures - Laceration Laceration #1 Consent Obtained: verbal consent Indication: laceration Site: scalp Description: linear Number of Sutures: 2 Additional Comments: 2 trev Medical Decision Making - Medical Decision Making Was pt. sent in by a medical professional or institution (, PA, CONTRACT ADMINISTRATION SPECIALIST, urgent care, hospital, or snf...) When possible be specific @ -No Did you speak to anyone other than the patient for history (EMS, parent, family, police, friend...)? What history was obtained from this source @ -No Did you review nursing and triage notes (agree or disagree)? Why? @ -I reviewed and agree with nursing and triage notes Were old charts reviewed (outside hosp., previous admission, EMS record, old EKG, old radiological studies, urgent care reports/EKG's, snf records)? Report findings @ -No old charts were reviewed Differential Diagnosis (chest pain, altered mental status, abdominal pain women, abdominal pain men, vaginal bleeding, musculoskeletal, weakness, fever, dyspnea, syncope, headache, dizziness, GI bleed, back pain, seizure, CVA, palpatations, mental health)? @ -Differential Syncope: Valvular disease, hypertrophic cardiomyopathy, pulmonary embolism, tamponade, tachycardia, bradycardia, MS, hypovolemia, hemorrhage, dissection, anemia, intracranial hemorrhage, seizure, hypoglycemia, carbon monoxide poisoning, this is not meant to be an all-inclusive list. EKG interpreted by me (3pts min.). @ -None done X-rays interpreted by me (1pt min.). @ -Chest x-ray pelvis x-ray shows no acute processes CT interpreted by me (1pt min.). @ -CT brain shows no acute processes U/S interpreted by me (1pt. min.). @ -None done What testing was considered but not performed or refused? (CT, X-rays, U/S, labs)? Why? @ -CT C-spine was considered however patient not have any cervical spine injury and is of sound mind and judgment What meds were considered but not given or refused? Why? @ -None Was smoking cessation discussed for >3mins.? @ -No Were there social determinants of health that impacted care today? How? (Homelessness, low income, unemployed, alcoholism, drug addiction, transportation, low edu. Level, literacy, decrease access to med. care, detention, rehab)? @ -No Was there de-escalation of care discussed even if they declined (Discuss DNR or withdrawal of care, Hospice)? DNR status @ -No What co-morbidities impacted this encounter? (DM, HTN, Smoking, COPD, CAD, Cancer, CVA, ARF, Chemo, Hep., AIDS, mental health diagnosis, sleep apnea, morbid obesity)? @ -None Was patient admitted / discharged? Hospital course, mention meds given and route, prescriptions, significant lab abnormalities, going to OR and other pertinent info. @ -74-year-old male multiple comorbidities presents emergency department for fall. He did strike his head and had a laceration to his right parietal scalp repaired at the bedside using trev. Vital signs stable. Patient well- appearing. Imaging studies are negative. Labs are unremarkable. Patient is unclear of if he had a mechanical fall. States he got dizzy and fell. Disposition options were discussed. Patient is agreeable with observation admission with consultation cardiology for syncope. Did you discuss the management of the patient with other professionals (professionals i.e. , PA, CONTRACT ADMINISTRATION SPECIALIST, lab, RT, psych nurse, perinatal social worker, stone spreader operator, teacher, district fire management officer, transplant case manager)? Give summary @ -Case discussed with hospitalist for admission Was critical care preformed (if so, how long)? @ -No Undiagnosed new problem with uncertain prognosis? @ -No Drug Therapy requiring intensive monitoring for toxicity (Heparin, Nitro, Insulin, Cardizem)? @ -No Were any procedures done? @ -No Diagnosis/symptom? Acute, or Chronic, or Acute on Chronic? Uncomplicated (without systemic symptoms) or Complicated (systemic symptoms)? @ -Syncope Side effects of treatment? @ -No Exacerbation, Progression, or Severe Exacerbation? @ -No Poses a threat to life or bodily function? How? (Chest pain, [place], MS, pneumonia, PE, COPD, DKA, ARF, appy, cholecystitis, CVA, Diverticulitis, Homicidal, Suicidal, threat to staff... and all critical care pts) @ -yes - Lab Data Result diagrams: 09/18/24 22:35 09/18/24 22:35 Lab Results 09/18/24 09/18/24 09/18/24 Range/Units 22:35 22:35 22:35 WBC 18.0 H (3.8-10.6) k/uL RBC 4.25 L (4.30-5.90) m/uL Hgb 13.6 (13.0-17.5) gm/dL Hct 40.6 (39.0-53.0) % MCV 95.5 (80.0-100.0) fL MCH 32.0 (25.0-35.0) pg MCHC 33.5 (31.0-37.0) g/dL RDW 11.7 (11.5-15.5) % Plt Count 274 (150-450) k/uL MPV 8.7 Neutrophils % 83 % Lymphocytes % 9 % Monocytes % 6 % Eosinophils % 0 % Basophils % 0 % Neutrophils # 14.9 H (1.3-7.7) k/uL Lymphocytes # 1.6 (1.0-4.8) k/uL Monocytes # 1.1 H (0-1.0) k/uL Eosinophils # 0.1 (0-0.7) k/uL Basophils # 0.0 (0-0.2) k/uL PT 12.1 (10.0-12.5) sec INR 1.1 (<1.2) APTT 25.9 (22.0-30.0) sec Sodium 130 L (137-145) mmol/L Potassium 5.7 H (3.5-5.1) mmol/L Chloride 97 L (98-107) mmol/L Carbon Dioxide 21 L (22-30) mmol/L Anion Gap 12 mmol/L BUN 18 (9-20) mg/dL Creatinine 0.79 (0.66-1.25) mg/dL Est GFR (CKD-EPI)AfAm >90 (>60 ml/min/1.73 sqM) Est GFR (CKD-EPI)NonAf 88 (>60 ml/min/1.73 sqM) Glucose 257 H (74-99) mg/dL Calcium 9.0 (8.4-10.2) mg/dL Total Bilirubin 1.5 H (0.2-1.3) mg/dL AST 46 (17-59) U/L ALT 20 (4-49) U/L Alkaline Phosphatase 86 (38-126) U/L Troponin I (0.000-0.034) ng/mL Total Protein 7.8 (6.3-8.2) g/dL Albumin 3.9 (3.5-5.0) g/dL Serum Alcohol <10 mg/dL 09/18/24 Range/Units 22:35 WBC (3.8-10.6) k/uL RBC (4.30-5.90) m/uL Hgb (13.0-17.5) gm/dL Hct (39.0-53.0) % MCV (80.0-100.0) fL MCH (25.0-35.0) pg MCHC (31.0-37.0) g/dL RDW (11.5-15.5) % Plt Count (150-450) k/uL MPV Neutrophils % % Lymphocytes % % Monocytes % % Eosinophils % % Basophils % % Neutrophils # (1.3-7.7) k/uL Lymphocytes # (1.0-4.8) k/uL Monocytes # (0-1.0) k/uL Eosinophils # (0-0.7) k/uL Basophils # (0-0.2) k/uL PT (10.0-12.5) sec INR (<1.2) APTT (22.0-30.0) sec Sodium (137-145) mmol/L Potassium (3.5-5.1) mmol/L Chloride (98-107) mmol/L Carbon Dioxide (22-30) mmol/L Anion Gap mmol/L BUN (9-20) mg/dL Creatinine (0.66-1.25) mg/dL Est GFR (CKD-EPI)AfAm (>60 ml/min/1.73 sqM) Est GFR (CKD-EPI)NonAf (>60 ml/min/1.73 sqM) Glucose (74-99) mg/dL Calcium (8.4-10.2) mg/dL Total Bilirubin (0.2-1.3) mg/dL AST (17-59) U/L ALT (4-49) U/L Alkaline Phosphatase (38-126) U/L Troponin I <0.012 (0.000-0.034) ng/mL Total Protein (6.3-8.2) g/dL Albumin (3.5-5.0) g/dL Serum Alcohol mg/dL Disposition Clinical Impression: Syncope Disposition: ADMITTED IP TO THIS HOSP Condition: Fair Referrals: Sudheer Lubin MD [Primary Care Provider] - 1-2 days Decision Time: 02:06
[2024-09-18 22:46] LABS: Basophils % (A) 0 %; Eosinophils # (A) 0.1 k/uL (0-0.7); Eosinophils % (A) 0 %; HCT 40.6 % (39.0-53.0); HGB 13.6 gm/dL (13.0-17.5); Lymphocytes # (A) 1.6 k/uL (1.0-4.8); Lymphocytes % (A) 9 %; MCHC 33.5 g/dL (31.0-37.0); MCV 95.5 fL (80.0-100.0); Mean Platelet Volume 8.7; Monocytes # (A) 1.1 k/uL (0-1.0); Monocytes % (A) 6 %; Neutrophils # (A) 14.9 k/uL (1.3-7.7); Neutrophils % (A) 83 %; Platelet Count 274 k/uL (150-450); RBC 4.25 m/uL (4.30-5.90); RDW 11.7 % (11.5-15.5)
[2024-09-18 22:55] LABS: ALT 20 U/L (4-49); AST 46 U/L (17-59); African American GFR (CKD) >90 (>60 ml/min/1.73 sqM); Albumin 3.9 g/dL (3.5-5.0); Alcohol <10 mg/dL; Alkaline Phosphatase 86 U/L (38-126); Anion Gap 12 mmol/L; Blood Urea Nitrogen 18 mg/dL (9-20); Carbon Dioxide 21 mmol/L (22-30); Chloride 97 mmol/L (98-107); Glucose 257 mg/dL (74-99); Non-African American GFR(CKD) 88 (>60 ml/min/1.73 sqM); Sodium 130 mmol/L (137-145); Total Bilirubin 1.5 mg/dL (0.2-1.3); Total Protein 7.8 g/dL (6.3-8.2)
[2024-09-18 22:58] LABS: Potassium 5.7 mmol/L (3.5-5.1)
--- NOTE | 2024-09-18 23:03 | CT ---
EXAM: CT Head Without Intravenous Contrast CLINICAL HISTORY: ITS.REASON CT Reason: fall/code coag TECHNIQUE: Axial computed tomography images of the head/brain without intravenous contrast. CTDI is 49.1 mGy and DLP is 1180 mGy-cm. This CT exam was performed using one or more of the following dose reduction techniques: automated exposure control, adjustment of the mA and/or kV according to patient size, and/or use of iterative reconstruction technique. COMPARISON: No relevant prior studies available. FINDINGS: Brain: No intracranial hemorrhage. Global parenchymal atrophy. Chronic microvascular ischemic changes. Chronic lacunar infarct within the left basal ganglia. Ventricles: Unremarkable. Bones/joints: Unremarkable. No fracture. Soft tissues: Right scalp laceration. Sinuses: No acute sinusitis. Mastoid air cells: Unremarkable as visualized. IMPRESSION: 1. No acute intracranial abnormality.
[2024-09-18 23:16] LABS: INR 1.1 (<1.2); Partial Thromboplastin Time 25.9 sec (22.0-30.0); Prothrombin Time 12.1 sec (10.0-12.5)
--- NOTE | 2024-09-18 23:34 | XR ---
EXAM: XR Chest, 1 View CLINICAL HISTORY: ITS.REASON XR Reason: trauma TECHNIQUE: Frontal view of the chest. COMPARISON: Chest x-ray 08/20/2024 FINDINGS: Lungs: No consolidation. No overt edema. Pleural space: No pleural effusion. No pneumothorax. Heart: Unremarkable. No cardiomegaly. IMPRESSION: No acute cardiopulmonary abnormality.
--- NOTE | 2024-09-18 23:35 | XR ---
EXAM: XR Pelvis, 1 or 2 Views CLINICAL HISTORY: ITS.REASON XR Reason: Trauma TECHNIQUE: Frontal view of the pelvis. COMPARISON: No relevant prior studies available. FINDINGS: Bones/joints: No acute fracture. Avascular necrosis within the femoral heads. Degenerative changes in the lumbar spine. Vasculature: Atherosclerotic calcifications. IMPRESSION: 1. No acute fracture. 2. Avascular necrosis within the femoral heads.
[2024-09-19] MEDS ORDERED: NALOXONE 0.4 MG/ML 1 ML VIAL IV PRN (01:55)
[2024-09-19 04:09] LABS: Glucose,Whole Blood 211 mg/dL (70-110)
[2024-09-19] MEDS: SODIUM CHLORIDE 0.9% 1,000 ML IV SCH ×2 (06:49→10:00)
[2024-09-19] MEDS: NICOTINE 21MG/24HR PATCH TRANSDERM STA (07:41)
--- NOTE | 2024-09-19 10:00 | P.HPIM ---
History of Present Illness 74-year-old male was brought in because he had a fall at the time they would not show to the patient is not visible patient denies a couple episode apparently patient had altered mental status patient is almost alert oriented x 3 when I evaluated the patient patient denied any UTI symptoms patient was complaining of generalized weakness. Patient does have leukocytosis without any evidence of infection at this time patient denied any cough. Patient blood sugars are high unknown what patient takes as patient does not know what she takes. Patient was discharged on 20 units of Lantus in month of February. Patient is hyponatremic and hyperkalemic. REVIEW OF SYSTEMS: All other systems are negative except those mentioned in the HPI PHYSICAL EXAMINATION: GENERAL: The patient is alert and oriented x3, not in any acute distress. Well developed, well nourished. HEENT: Pupils are round and equally reacting to light. EOMI. No scleral icterus. No conjunctival pallor. Normocephalic, atraumatic. No pharyngeal erythema. No thyromegaly. CARDIOVASCULAR: S1 and S2 present. No murmurs, rubs, or gallops. PULMONARY: Chest is clear to auscultation, no wheezing or crackles. ABDOMEN: Soft, nontender, nondistended, normoactive bowel sounds. No palpable organomegaly. MUSCULOSKELETAL: No joint swelling or deformity. EXTREMITIES: No cyanosis, clubbing, or pedal edema. NEUROLOGICAL: Gross neurological examination did not reveal any focal deficits. SKIN: No rashes. Assessment and plan -Fall may be secondary to generalized weakness and dehydration patient will continue on IV fluids will repeat basic metabolic profile -Hypovolemic hyponatremia-IV fluids as mentioned above -Hyperkalemia with slight hemolysis will repeat labs again patient will be given IV fluids, management as per the repeat potassium levels -Type 2 diabetes mellitus appears to be noncompliant will verify medications for now patient will be on sliding scale insulin -Generalized weakness PT and OT evaluation -Not clear whether patient had a syncopal episode will monitor him overnight on telemetry DVT prophylaxis: Ambulation Past Medical History Past Medical History: Diabetes Mellitus, GI Bleed, Hearing Disorder / Deafness Additional Past Medical History / Comment(s): unhealing 2 wounds left foot -from rubbing on medical boot, HX of Diverticultis. Type IIDiabetic. [place]. Perforated ulcer. History of Any Multi-Drug Resistant Organisms: None Reported Past Surgical History: Hernia Repair Additional Past Surgical History / Comment(s): Hernia at age 3. Stomach surgery. Colonoscopy,amputation 2nd digit left foot. Recent amputation of the 5th digit foot -May 2024. Past Anesthesia/Blood Transfusion Reactions: No Reported Reaction Additional Past Anesthesia/Blood Transfusion Reaction / Comment(s): no hx blood transfusion Past Psychological History: No Psychological Hx Reported Smoking Status: Current every day smoker - Past Family History Sister(s) Family Medical History: Cancer Additional Family Medical History / Comment(s): Breast cancer Medications and Allergies Home Medications Medication Instructions Recorded Confirmed Type metFORMIN HCL 500 mg PO BID #60 tablet 02/23/24 08/20/24 Rx Gentamicin 0.1% Cream 1 applic TOPICAL DAILY 08/20/24 08/20/24 History Allergies Allergy/AdvReac Type Severity Reaction Status Date / Time No Known Allergies Allergy Verified 08/20/24 10:39 Physical Exam Vitals: Vital Signs Temp Pulse Resp BP Pulse Ox 09/19/24 07:38 99.3 F 97 18 119/83 97 09/19/24 06:29 100 18 121/66 98 09/19/24 05:03 99.0 F 09/19/24 02:19 104 H 18 128/77 99 09/18/24 22:29 99.9 F H 117 H 20 137/81 97 Intake and Output 09/18/24 09/19/24 09/19/24 22:59 06:59 14:59 Other: Weight 117.48 kg Results CBC & Chem 7: 09/18/24 22:35 09/18/24 22:35 Labs: Abnormal Lab Results - Last 24 Hours (Table) 09/18/24 09/18/24 09/19/24 Range/Units 22:35 22:35 04:08 WBC 18.0 H (3.8-10.6) k/uL RBC 4.25 L (4.30-5.90) m/uL Neutrophils # 14.9 H (1.3-7.7) k/uL Monocytes # 1.1 H (0-1.0) k/uL Sodium 130 L (137-145) mmol/L Potassium 5.7 H (3.5-5.1) mmol/L Chloride 97 L (98-107) mmol/L Carbon Dioxide 21 L (22-30) mmol/L Glucose 257 H (74-99) mg/dL POC Glucose (mg/dL) 211 H (70-110) mg/dL Plasma Lactic Acid [place] (0.7-2.0) mmol/L Total Bilirubin 1.5 H (0.2-1.3) mg/dL 09/19/24 Range/Units 06:25 WBC (3.8-10.6) k/uL RBC (4.30-5.90) m/uL Neutrophils # (1.3-7.7) k/uL Monocytes # (0-1.0) k/uL Sodium (137-145) mmol/L Potassium (3.5-5.1) mmol/L Chloride (98-107) mmol/L Carbon Dioxide (22-30) mmol/L Glucose (74-99) mg/dL POC Glucose (mg/dL) (70-110) mg/dL Plasma Lactic Acid [place] 2.3 H* (0.7-2.0) mmol/L Total Bilirubin (0.2-1.3) mg/dL
[2024-09-19 11:21] LABS: African American GFR (CKD) >90 (>60 ml/min/1.73 sqM); Anion Gap 12 mmol/L; Blood Urea Nitrogen 18 mg/dL (9-20); Calcium 8.9 mg/dL (8.4-10.2); Carbon Dioxide 23 mmol/L (22-30); Chloride 97 mmol/L (98-107); Glucose 260 mg/dL (74-99); Non-African American GFR(CKD) >90 (>60 ml/min/1.73 sqM); Potassium 4.5 mmol/L (3.5-5.1); Sodium 132 mmol/L (137-145)
[2024-09-19] MEDS: ATORVASTATIN 40 MG TAB PO SCH (11:41)
[2024-09-19] MEDS: ASPIRIN 81 MG PO SCH (11:41)
[2024-09-19] MEDS: INSULIN ASPART (NovoLOG) 100 UNIT/ML VIAL SQ SCH (11:42)
[2024-09-19 11:43] LABS: Glucose,Whole Blood 283 mg/dL (70-110)
--- NOTE | 2024-09-19 12:42 | P.CRDCN ---
History of Present Illness Consult date: 09/19/24 Requesting physician: Josiane Story Reason for Consult (text): syncope Chief complaint: fall History of present illness: This is a pleasant 74-year-old male patient does not follow with cardiology. He has past medical history of diabetes, noncompliance, nonhealing foot wounds requiring toe amputations for gangrene/osteomyelitis follows with Dr. June denies any cardiac history. Presented to the hospital with complaints of fall at home. He was apparently walking out onto his balcony and ended up on the floor. He does not recall feeling dizzy or lightheaded. He is unsure if he passed out . He denies any chest discomfort, shortness of breath or palpitations. He is unclear what medications he takes at home. He is a current 1 pack/day smoking with no desire to quit drinks 1-2 beers a day. At the time of my examination he is feeling well. Denies any chest discomfort, shortness of breath, palpitations, dizziness or lightheadedness. He has lower extremity edema that is chronic. There is mention in the ER note of possible anticoagulation at home and speaking with the patient he says he is not on a blood thinner but feels he needs to be on one. Diagnostics -EKG: Sinus tachycardia -Chest x-ray: No acute cardiopulmonary abnormality -Pelvic x-ray: no acute fracture, avascular necrosis within the femoral heads -Brain CT: No acute intracranial abnormality -Laboratory studies: White blood cell count 18,000, hemoglobin 13.6, sodium 130, potassium 5.7 with redraw of 4.5, BUN 18, creatinine 0.79, glucose 257, plasma lactic acid 2.3 with subsequent 1.9, total bilirubin 1.5, troponin negative x 1. -Home cardiac medications: Unknown -Prior stress test: Patient denies -Echocardiogram: Patient denies -Cardiac catheterization: Patient denies Review Of Systems: At the time of my exam: CONSTITUTIONAL: Denies fever or chills. HEENT: Denies blurred vision, vision changes. CARDIOVASCULAR: Denies chest pain. Denies orthopnea. Denies PND. Denies palpitations, dizziness, or syncope. RESPIRATORY: Denies shortness of breath, wheezing, or cough. Denies hemoptysis. GASTROINTESTINAL: Denies abdominal pain. Denies nausea or vomiting. Denies bleeding. HEMATOLOGIC: Denies bleeding disorders. GENITOURINARY: Denies hematuria. SKIN: Denies puritis. Denies rash. PHYSICAL EXAMINATION: This is a 74-year-old male in no apparent distress at the time of my examination. VITAL SIGNS: Reviewed. HEENT: Head is atraumatic, normocephalic. Pupils are equal, round. Sclerae anicteric. Conjunctivae are clear. Mucous membranes of the mouth are moist. Neck is supple. There is no elevated jugular venous pressure. No carotid bruit is heard. CHEST EXAMINATION: Lungs diminished bilaterally. No wheezes rales or rhonchi. Respirations even and nonlabored. HEART EXAMINATION: Heart regular, positive S1 and S2. No S3. No S4. Systolic murmur. ABDOMEN: Soft, nontender. Bowel sounds are heard. No organomegaly noted. EXTREMITIES: peripheral pulses with evidence of mild peripheral edema and no c assisted tenderness noted. NEUROLOGIC EXAMINATION: Patient is awake, alert and oriented x3. Assessment: 1. Possible syncopal episode 2. Diabetes mellitus type 2, uncontrolled, A1c 12.1% in February 3. Noncompliance 4. Nonhealing foot wounds, history of gangrene/osteomyelitis with previous toe amputation and debridement with Dr. June 5. Nicotine dependence Plan: From cardiology's perspective we will add aspirin and statin. Will obtain a 2D echo with Doppler study to assess cardiac structure and function. Encourage smoking cessation and compliance with medications. Check lipids and hemoglobin A1c. we will continue to follow the patient and provide further recommendations accordingly. Thank you kindly for this consultation. Nurse practitioner note has been reviewed, I agree with documented findings and plan of care. Patient was seen and examined. Past Medical History Past Medical History: Diabetes Mellitus, GI Bleed, Hearing Disorder / Deafness Additional Past Medical History / Comment(s): unhealing 2 wounds left foot -from rubbing on medical boot, HX of Diverticultis. Type IIDiabetic. [place]. Perforated ulcer. History of Any Multi-Drug Resistant Organisms: None Reported Past Surgical History: Hernia Repair Additional Past Surgical History / Comment(s): Hernia at age 3. Stomach surgery. Colonoscopy,amputation 2nd digit left foot. Recent amputation of the 5th digit foot -May 2024. Past Anesthesia/Blood Transfusion Reactions: No Reported Reaction Additional Past Anesthesia/Blood Transfusion Reaction / Comment(s): no hx blood transfusion Past Psychological History: No Psychological Hx Reported Smoking Status: Current every day smoker - Past Family History Sister(s) Family Medical History: Cancer Additional Family Medical History / Comment(s): Breast cancer Medications and Allergies Home Medications Medication Instructions Recorded Confirmed Type No Known Home Medications 09/19/24 09/19/24 History Allergies Allergy/AdvReac Type Severity Reaction Status Date / Time No Known Allergies Allergy Verified 09/19/24 10:26 Physical Exam Vitals: Vital Signs Temp Pulse Resp BP Pulse Ox 09/19/24 10:43 72 16 105/54 96 09/19/24 07:38 99.3 F 97 18 119/83 97 09/19/24 06:29 100 18 121/66 98 09/19/24 05:03 99.0 F 09/19/24 02:19 104 H 18 128/77 99 09/18/24 22:29 99.9 F H 117 H 20 137/81 97 Intake and Output 09/18/24 09/19/24 09/19/24 22:59 06:59 14:59 Other: Weight 117.48 kg Results 09/18/24 22:35 09/19/24 10:26 Cardiac Enzymes 09/18/24 09/18/24 Range/Units 22:35 22:35 AST 46 (17-59) U/L Troponin I <0.012 (0.000-0.034) ng/mL Coagulation 09/18/24 Range/Units 22:35 PT 12.1 (10.0-12.5) sec APTT 25.9 (22.0-30.0) sec CBC 09/18/24 Range/Units 22:35 WBC 18.0 H (3.8-10.6) k/uL RBC 4.25 L (4.30-5.90) m/uL Hgb 13.6 (13.0-17.5) gm/dL Hct 40.6 (39.0-53.0) % Plt Count 274 (150-450) k/uL Comprehensive Metabolic Panel 09/18/24 09/19/24 Range/Units 22:35 10:26 Sodium 130 L 132 L (137-145) mmol/L Potassium 5.7 H 4.5 (3.5-5.1) mmol/L Chloride 97 L 97 L (98-107) mmol/L Carbon Dioxide 21 L 23 (22-30) mmol/L BUN 18 18 (9-20) mg/dL Creatinine 0.79 0.72 (0.66-1.25) mg/dL Glucose 257 H 260 H (74-99) mg/dL Calcium 9.0 8.9 (8.4-10.2) mg/dL AST 46 (17-59) U/L ALT 20 (4-49) U/L Alkaline Phosphatase 86 (38-126) U/L Total Protein 7.8 (6.3-8.2) g/dL Albumin 3.9 (3.5-5.0) g/dL Current Medications Generic Name Dose Route Start Last Admin Trade Name Freq PRN Reason Stop Dose Admin Aspirin 81 mg 09/19/24 11:30 Aspirin 81 Mg PO DAILY [facility] Atorvastatin Calcium 40 mg 09/19/24 11:30 Atorvastatin 40 Mg Tab PO DAILY [facility] Sodium Chloride 1,000 mls @ 75 mls/hr 09/19/24 10:00 09/19/24 10:00 Saline 0.9% IV 75 mls/hr .[id number] JHONATAN Administration Insulin Aspart 0 unit 09/19/24 12:30 Insulin Aspart (Novolog) 100 Unit/Ml Vial SQ AC-TID JHONATAN Protocol Naloxone HCl 0.2 mg 09/19/24 01:55 Naloxone 0.4 Mg/Ml 1 Ml Vial IV Q2M PRN Opioid Reversal Intake and Output 09/18/24 09/19/24 09/19/24 22:59 06:59 14:59 Other: Weight 117.48 kg 09/18/24 22:35 09/19/24 10:26
[2024-09-19 17:17] LABS: Glucose,Whole Blood 198 mg/dL (70-110)
[2024-09-19 17:39] LABS: Appearance,Urine Clear (Clear); Bilirubin,Urine Negative (Negative); Blood,Urine Negative (Negative); Color,Urine Yellow; Glucose,Urine (UA) 4+ (Negative); Ketones,Urine Trace (Negative); Leukocyte Esterase,Urine Negative (Negative); Mucus,Urine Moderate /hpf; Nitrite,Urine Negative (Negative); PH, Urine 5.5 (5.0-8.0); Protein,Urine 1+ (Negative); RBC,Urine 3 /hpf (0-5); Specific Gravity,Urine 1.029 (1.001-1.035); WBC,Urine 2 /hpf (0-5)
[2024-09-19 19:03] LABS: Amphetamine Screen,Urine Not Detected (NotDetected); Barbiturate Screen,Urine Not Detected (NotDetected); Benzodiazepines Screen,Urine Not Detected (NotDetected); Cocaine Screen,Urine Not Detected (NotDetected); Methadone Screen, Urine Not Detected (NotDetected); Opiate Screen,Urine Not Detected (NotDetected); Oxycodone Screen, Urine Not Detected (NotDetected); Phencyclidine Screen,Urine Not Detected (NotDetected); Tricyclic Antidepressant,Urine Not Detected (NotDetected); Urn Cannabinoid Scrn Not Detected (NotDetected)
[2024-09-19 20:03] LABS: Glucose,Whole Blood 238 mg/dL (70-110)
--- NOTE | 2024-09-19 21:45 | CT ---
EXAMINATION TYPE: CT brain wo con DATE OF EXAM: 09/19/2024 9:35 PM COMPARISON: Previous CT study 09/18/2024. CLINICAL INDICATION: Male, 74 years old with history of fall, inpatient fall TECHNIQUE: Brain: Axial CT images of the brain were obtained with coronal and sagittal reformats created and rev iewed. Contrast used: None. Oral contrast used: None. CT DLP: 1162.3 mGycm, Automated exposure control for dose reduction was used. FINDINGS: Brain: Extra-axial spaces: No abnormal extra-axial fluid collections. Ventricular system: Dilatation in proportion to cerebral atrophy. Cerebral parenchyma: No acute intraparenchymal hemorrhage or mass effect. Scattered hypoattenuating areas are seen within the white matter. 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 Cerebellum: Unremarkable. Mass effect: No evidence of midline shift. Soft tissues: Normal. Calvarium/osseous structures: No depressed skull fracture. Paranasal sinuses and mastoid air cells: Mild scattered paranasal sinus disease. Visualized orbits: Bilateral aphakia IMPRESSION: No acute intracranial abnormality. [facility], , 09/19/2024 9:42 PM
[2024-09-19] MEDS: ACETAMINOPHEN TAB 325 MG TAB PO PRN (22:41)
[2024-09-19 23:09] LABS: Chol/HDL Ratio 4.89 Ratio; LDL Cholesterol,Calculated 83.8 mg/dL (0.0-131.0); VLDL Calculation 17.98 mg/dL (5.00-40.00)
[2024-09-20] MEDS: NICOTINE 14MG/24HR PATCH TRANSDERM SCH (00:43)
[2024-09-20 06:29] LABS: Glucose,Whole Blood 160 mg/dL (70-110)
[2024-09-20] MEDS: PANTOPRAZOLE 40 MG TABLET PO SCH (06:39)
[2024-09-20 08:50] LABS: BUN/Creat Ratio 14.43 Ratio (12.00-20.00); Blood Urea Nitrogen 10.1 mg/dL (9.0-27.0); Calcium 8.4 mg/dL (8.7-10.3); Carbon Dioxide 21.5 mmol/L (21.6-31.8); Chloride 103 mmol/L (96-109); Glucose 163 mg/dL (70-110); Potassium 4.2 mmol/L (3.5-5.5); Sodium 135 mmol/L (135-145)
--- NOTE | 2024-09-20 10:07 | CA ---
Transthoracic Echo Report Name: Kedar Josue Age: 74 Gender: M : 1950 Exam Date: 09/20/2024 07:48 Exam Location: [facility] Ht (in): 69 Wt (lb): 259 Ordering Physician: Fiona Grimes Attending/Referring Phys: [id number], Syndey Cytotechnologist Nicole Reddy, PALLAVI Procedure CPT: Indications: Syncope Cardiac Hx: Technical Quality: Fair Contrast 1: Total Dose (mL): Contrast 2: Total Dose (mL): MEASUREMENTS (Male / Female) Normal Values 2D ECHO LV Diastolic Diameter PLAX 3.8 cm 4.2 - 5.9 / 3.9 - 5.3 cm LV Systolic Diameter PLAX 3.1 cm IVS Diastolic Thickness 1.5 cm 0.6 - 1.0 / 0.6 - 0.9 cm LVPW Diastolic Thickness 1.4 cm 0.6 - 1.0 / 0.6 - 0.9 cm LV Relative Wall Thickness 0.7 RV Internal Dim ED PLAX 1.6 cm LA Systolic Diameter LX 3.1 cm 3.0 - 4.0 / 2.7 - 3.8 cm LV Diastolic Volume MOD BP 41.2 cm??? 67 - 155 / 56 - 104 cm??? LV Systolic Volume MOD BP 14.3 cm??? 22 - 58 / 19 - 49 cm??? LV Ejection Fraction MOD BP 65.4 % >= 55 % LV Cardiac Index MOD BP 1005.9 cm???/min???m??? LV Diastolic Volume MOD 4C 38.3 cm??? LV Systolic Volume MOD 4C 17.2 cm??? LV Ejection Fraction MOD 4C 55.0 % LV Cardiac Index MOD 4C 785.8 cm???/min???m??? LV Diastolic Length 4C 6.7 cm LV Systolic Length 4C 5.4 cm LV Diastolic Volume MOD 2C 41.5 cm??? LV Systolic Volume MOD 2C 10.9 cm??? LV Ejection Fraction MOD 2C 73.7 % LV Cardiac Index MOD 2C 1140.3 cm???/min???m??? LV Diastolic Length 2C 6.2 cm LV Systolic Length 2C 4.8 cm LA Volume 57.1 cm??? 18 - 58 / 22 - 52 cm??? LA Volume Index 23.4 cm???/m??? 16 - 28 cm???/m??? M-MODE Aortic Root Diameter MM 3.2 cm LA Systolic Diameter MM 3.1 cm LA Ao Ratio MM 1.0 AV Cusp Separation MM 1.4 cm DOPPLER AV Peak Velocity 183.4 cm/s AV Peak Gradient 13.5 mmHg AV Mean Velocity 119.3 cm/s AV Mean Gradient 6.7 mmHg AV Velocity Time Integral 41.3 cm LVOT Peak Velocity 104.9 cm/s LVOT Peak Gradient 4.4 mmHg LVOT Velocity Time Integral 23.5 cm MV Area PHT 2.4 cm??? Mitral E Point Velocity 64.8 cm/s Mitral A Point Velocity 91.1 cm/s Mitral E to A Ratio 0.7 MV Deceleration Time 314.2 ms TR Peak Velocity 228.5 cm/s TR Peak Gradient 20.9 mmHg Right Ventricular Systolic Press 24.7 mmHg FINDINGS Left Ventricle Left ventricular ejection fraction is estimated at 55-60 %. Moderately increased septal wall thickness. Normal left ventricular systolic function with no obvious regional wall motion abnormalities. Left ventricular cavity size normal. Right Ventricle Normal right ventricular size and function. Right ventricular systolic pressure within normal limits. Right Atrium Normal right atrial size. Left Atrium Normal left atrial size. Mitral Valve Structurally normal mitral valve. Trace mitral regurgitation. No mitral stenosis. Aortic Valve Diffuse thickening (sclerosis) of the aortic valve cusps without reduced excursion. No aortic stenosis. Tricuspid Valve Structurally normal tricuspid valve. Mild tricuspid regurgitation. No tricuspid stenosis. Pulmonic Valve Structurally normal pulmonic valve. Trace pulmonic regurgitation. No pulmonic stenosis. Pericardium No pericardial or pleural effusion. Aorta Normal size aortic root and proximal ascending aorta. CONCLUSIONS LVEF 55% Moderate septal hypertrophy no LVOT obstruction No obvious regional wall motion abnormality Normal RV size and systolic function Sclerotic aortic valve RVSP 25 mmHg Previewed by: Dr Valentino Heck (Electronically Signed) Final Date: 20 September 2024 10:06
--- NOTE | 2024-09-20 10:32 | US ---
EXAMINATION TYPE: US carotid duplex BILAT DATE OF EXAM: 09/20/2024 COMPARISON: NONE CLINICAL INDICATION: Male, 74 years old with history of syncope; syncope Additional History: .... TECHNIQUE: Grayscale, color Doppler and spectral Doppler evaluation of the bilateral carotid systems and vertebral arteries. Indirect Doppler criteria was utilized. FINDINGS: EXAM MEASUREMENTS: RIGHT: Peak Systolic Velocity (PSV) cm/sec ----- Right CCA: 89.7 ----- Right ICA: 112 ----- Right ECA: 93.1 ICA/CCA ratio: 1.25 RIGHT: End Diastole cm/sec ----- Right CCA: 10.7 ----- Right ICA: 20.8 ----- Right ECA: 6.7 LEFT: Peak Systolic Velocity (PSV) cm/sec ----- Left CCA: 177 ----- Left ICA: 84.9 ----- Left ECA: 98.6 ICA/CCA ratio: 0.5 LEFT: End Diastole cm/sec ----- Left CCA: 14.4 ----- Left ICA: 17.2 ----- Left ECA: 11.3 VERTEBRALS (direction of flow): Right Vertebral: Antegrade Left Vertebral: not visualized Rhythm: Normal GERMINATION TESTING MANAGER NOTES: No stenosis visualized. Heavy plaque at the bilateral bulbs and left CCA. Elevated velocities at the left CCA. Color Doppler imaging shows patency with blood flow throughout the carotid artery. Spectral waveforms are within normal limits. IMPRESSION: Right: Less than 50% stenosis of the carotid bifurcation. Left: Less than 50% stenosis of the carotid bifurcation. Criteria for Assigning % of Stenosis / Diameter reduction (Estimation based on the indirect measurements of the internal carotid artery velocities (ICA PSV). 1. Normal (no stenosis)=ICA PSV < 125 cm/s: ratio < 2.0: ICA EDV<40 cm/s. 2. Less than 50% stenosis=ICA PSV < 125 cm/s: ratio < 2.0: ICA EDV<40 cm/s. 3. 50 to 69% stenosis=ICA PSV of 125 to 230 cm/s: ration 2.0 ? 4.0: ICA EDV 40-100 cm/s. 4. Greater than 70% stenosis to near occlusion= ICA PSV > 230 cm/s: ratio > 4.0: ICA EDV > 100 cm/s. 5. Near occlusion= ICA PSV velocities may be low or undetectable: variable ratio and ICA EDV. 6. Total occlusion=unable to detect flow. [facility], , 09/20/2024 10:30 AM
[2024-09-20] MEDS: RIVAROXABAN 2.5 MG TABLET PO SCH (11:15)
[2024-09-20] MEDS: DAPAGLIFLOZIN PROPANEDIOL 10 MG TABLET PO SCH (11:15)
[2024-09-20] MEDS: LOSARTAN 25 MG TAB PO SCH (11:15)
--- NOTE | 2024-09-20 11:36 | P.PN ---
Subjective Progress Note Date: 09/20/24 Principal diagnosis: Syncope Per medical H&P, "74-year-old male was brought in because he had a fall at the time they would not show to the patient is not visible patient denies a couple episode apparently patient had altered mental status patient is almost alert oriented x 3 when I evaluated the patient patient denied any UTI symptoms patient was complaining of generalized weakness. Patient does have leukocytosis without any evidence of infection at this time patient denied any cough. Patient blood sugars are high unknown what patient takes as patient does not know what she takes. Patient was discharged on 20 units of Lantus in month of February. Patient is hyponatremic and hyperkalemic." Progress note for 09/20/2024: Patient was seen at bedside today. Labs from today showed sodium 135, potassium 4.2, chloride 103, carbon dioxide 21.5, BUN 10.1, creatinine 0.7, glucose 163, hemoglobin A1c of 9.7. Vitals temperature of 98.2, pulse rate of 96, respiratory rate 19, blood pressure 135/74, O2 sat 98% on room air. Brain CT obtained last night showed no acute intracranial abnormality. Patient denies any acute complaints at this time. Patient denies any fever, chills, dizziness,, chest pain, shortness of breath/vomiting, belly pain. Patie nt was noted to have very big open wound on his right big toe with signs of necrosis. Review of Systems Constitutional: Denies chills, Denies fever Eyes: denies blurred vision, double vision or pain Ears, nose, mouth and throat: Denies headache, Denies sore throat Cardiovascular: Denies chest pain, Denies shortness of breath Respiratory: Denies cough Gastrointestinal: Denies abdominal pain, Denies diarrhea, Denies nausea, Denies vomiting Musculoskeletal: Denies myalgias Integumentary: Denies pruritus, Denies rash Neurological: Denies numbness, Denies weakness Psychiatric: Denies anxiety, Denies depression Endocrine: Denies fatigue, Denies weight change GENERAL: This is a 74-year-old in no apparent distress at the time of examination. Pleasant and cooperative. HEENT: Head is atraumatic, normocephalic. Pupils are equal, round, and reactive to light. Sclerae anicteric. Conjunctivae are clear. Mucus membranes of the mouth are moist. Neck is supple. RESPIRATORY: Clear to auscultation. No wheezes, rales, or rhonchi. No use of accessory muscles. Patient maintaining oxygen saturation greater than 92%. No chest wall tenderness is noted on palpation or with deep breathing. CARDIOVASCULAR: Regular rate and rhythm. S1 and S2 noted. No systolic or diastolic murmur auscultated. No JVD noted. No S3 or S4 noted. GASTROINTESTINAL: No distention noted. Abdomen soft and round. Normal active bowel sounds auscultated x 4 quadrants. No pain or tenderness noted upon palpation. INTEGUMENTARY: No cyanosis. No jaundice. No rashes noted. No cellulitis noted. EXTREMITIES: 2+ peripheral pulses. No evidence of peripheral edema. No calf tenderness noted. 4 cm x 2 cm necrotic wound noted on right big toe NEUROLOGIC: Cranial nerves II-XII intact. PSYCHIATRIC: Awake, alert. Appropriate affect. Intact judgement and insight. Assessment: Fall may be secondary to generalized weakness and dehydration Nonhealing foot wounds, history of gangrene/osteomyelitis with previous toe amputation and debridement with Dr. June Leukocytosis Hypovolemic hyponatremia, resolved Hyperkalemia with slight hemolysis, resolved Type 2 diabetes mellitus Generalized weakness Plan: Obtain carotid ultrasound bilateral Consult wound care for wound on the right big toe, the wound on his right big toe is very concerning with signs of necrosis, may possibly need amputation. Monitor morning CBC/CMP Continue sliding scale insulin Echocardiogram showed left ventricular ejection fraction of 55% Vascular surgery/ID/cardiology consulted Continue aspirin 81 mg and Lipitor 40 mg Continue cefazolin 2 g IV every 8 hours Objective - Vital Signs Vital signs: Vital Signs Temp 98.2 F 09/20/24 04:38 Pulse 96 09/20/24 04:38 Resp 19 09/20/24 04:38 BP 135/74 09/20/24 04:38 Pulse Ox 98 09/20/24 04:38 FiO2 Intake & Output 09/19/24 09/20/24 09/20/24 18:59 06:59 18:59 Weight 117.48 kg Other: # Voids 2 - Labs CBC & Chem 7: 09/18/24 22:35 09/20/24 05:08 Labs: Abnormal Lab Results - Last 24 Hours (Table) 09/19/24 09/19/24 09/19/24 Range/Units 10:26 10:26 10:26 Sodium 132 L (137-145) mmol/L Chloride 97 L (98-107) mmol/L Carbon Dioxide (21.6-31.8) mmol/L Glucose 260 H (74-99) mg/dL POC Glucose (mg/dL) (70-110) mg/dL Hemoglobin A1c 9.7 H (<=6.0) % Calcium (8.7-10.3) mg/dL HDL Cholesterol 26.20 L (40.00-60.00) mg/dL Urine Protein (Negative) Urine Glucose (UA) (Negative) Urine Ketones (Negative) Urine Mucus (None) [facility] 09/19/24 09/19/24 09/19/24 Range/Units 11:37 16:50 17:16 Sodium (137-145) mmol/L Chloride (98-107) mmol/L Carbon Dioxide (21.6-31.8) mmol/L Glucose (74-99) mg/dL POC Glucose (mg/dL) 283 H 198 H (70-110) mg/dL Hemoglobin A1c (<=6.0) % Calcium (8.7-10.3) mg/dL HDL Cholesterol (40.00-60.00) mg/dL Urine Protein 1+ H (Negative) Urine Glucose (UA) 4+ H (Negative) Urine Ketones Trace H (Negative) Urine Mucus Moderate H (None) [facility] 09/19/24 09/20/24 09/20/24 Range/Units 20:02 05:08 06:27 Sodium (137-145) mmol/L Chloride (98-107) mmol/L Carbon Dioxide 21.5 L (21.6-31.8) mmol/L Glucose 163 H (74-99) mg/dL POC Glucose (mg/dL) 238 H 160 H (70-110) mg/dL Hemoglobin A1c (<=6.0) % Calcium 8.4 L (8.7-10.3) mg/dL HDL Cholesterol (40.00-60.00) mg/dL Urine Protein (Negative) Urine Glucose (UA) (Negative) Urine Ketones (Negative) Urine Mucus (None) [facility]
[2024-09-20 12:21] LABS: Glucose,Whole Blood 281 mg/dL (70-110)
--- NOTE | 2024-09-20 12:26 | P.PN ---
Subjective Progress Note Date: 09/20/24 Requesting physician: Josiane Story Reason for Consult (text): syncope Chief complaint: fall History of present illness: This is a pleasant 74-year-old male patient does not follow with cardiology. He has past medical history of diabetes, noncompliance, nonhealing foot wounds requiring toe amputations for gangrene/osteomyelitis follows with Dr. June denies any cardiac history. Presented to the hospital with complaints of fall at home. He was apparently walking out onto his balcony and ended up on the floor. He does not recall feeling dizzy or lightheaded. He is unsure if he passed out. He denies any chest discomfort, shortness of breath or palpitations. He is unclear what medications he takes at home. He is a current 1 pack/day smoking with no desire to quit drinks 1-2 beers a day. At the time of my examination he is feeling well. Denies any chest discomfort, shortness of breath, palpitations, dizziness or lightheadedness. He has lower extremity edema that is chronic. There is mention in the ER note of possible anticoagulation at home and speaking with the patient he says he is not on a blood thinner but feels he needs to be on one. Diagnostics -EKG: Sinus tachycardia -Chest x-ray: No acute cardiopulmonary abnormality -Pelvic x-ray: no acute fracture, avascular necrosis within the femoral heads -Brain CT: No acute intracranial abnormality -Laboratory studies: White blood cell count 18,000, hemoglobin 13.6, sodium 130, potassium 5.7 with redraw of 4.5, BUN 18, creatinine 0.79, glucose 257, plasma lactic acid 2.3 with subsequent 1.9, total bilirubin 1.5, troponin negative x 1. -Home cardiac medications: Unknown -Prior stress test: Patient denies -Echocardiogram: Patient denies -Cardiac catheterization: Patient denies 09/20/24 Patient seen and examined. Patient apparently had a fall last night when he tried to get out of bed. No loss of consciousness. He has a registered safety engineer at the bedside. Blood pressure is elevated for which losartan will be added. Patient apparently is eating and drinking okay. Blood pressure 143/73, heart rate 94, pulse ox 99% on room air. Repeat blood work reveals sodium 135, potassium 4.2, creatinine 0.7. Carotid duplex: Less than 50% stenosis bilaterally. Echocardiogram: EF 55%. Moderate septal hypertrophy with no LVOT obstruction. No obvious regional wall motion abnormality. RVSP 25 mmHg. Lipid panel: Triglycerides 89.9, cholesterol 120, LDL 83, HDL 26. A1c 9.7. PHYSICAL EXAMINATION: This is a 74-year-old male in no apparent distress at the time of my examination. VITAL SIGNS: Reviewed. HEENT: Head is atraumatic, normocephalic. Pupils are equal, round. Sclerae anicteric. Conjunctivae are clear. Mucous membranes of the mouth are moist. Neck is supple. There is no elevated jugular venous pressure. No carotid bruit is heard. CHEST EXAMINATION: Lungs diminished bilaterally. No wheezes rales or rhonchi. Respirations even and nonlabored. HEART EXAMINATION: Heart regular, positive S1 and S2. No S3. No S4. Systolic murmur. ABDOMEN: Soft, nontender. Bowel sounds are heard. No organomegaly noted. EXTREMITIES: peripheral pulses with evidence of mild peripheral edema and no calf tenderness noted. NEUROLOGIC EXAMINATION: Patient is awake, oriented to person, place. Assessment: 1. Possible syncopal episode 2. Diabetes mellitus type 2, uncontrolled, A1c 9.7 3. Noncompliance 4. Nonhealing foot wounds, history of gangrene/osteomyelitis with previous toe amputation and debridement with Dr. June 5. Nicotine dependence Plan: Continue patient on aspirin and statin. Add Xarelto 2.5 mg twice daily for PAD Add losartan 25 mg daily for blood pressure control Smoking cessation. Patient will be provided with the [employer] quit line information at the time of discharge. Encourage compliance with medications. Cardiology will sign off this case and follow on an as-needed basis. Please reconsult for any new concerns. Patient may follow-up in the office in one to 2 weeks. Nurse practitioner note has been reviewed, I agree with documented findings and plan of care. Patient was seen and examined. Objective - Vital Signs Vital signs: Vital Signs Temp 98.2 F 09/20/24 04:38 Pulse 96 09/20/24 04:38 Resp 19 09/20/24 04:38 BP 135/74 09/20/24 04:38 Pulse Ox 98 09/20/24 04:38 FiO2 Intake & Output 09/19/24 09/20/24 09/20/24 18:59 06:59 18:59 Weight 117.48 kg Other: # Voids 2 - Labs CBC & Chem 7: 09/18/24 22:35 09/20/24 05:08 Labs: Abnormal Lab Results - Last 24 Hours (Table) 09/19/24 09/19/24 09/19/24 Range/Units 10:26 10:26 10:26 Sodium 132 L (137-145) mmol/L Chloride 97 L (98-107) mmol/L Glucose 260 H (74-99) mg/dL POC Glucose (mg/dL) (70-110) mg/dL Hemoglobin A1c 9.7 H (<=6.0) % HDL Cholesterol 26.20 L (40.00-60.00) mg/dL Urine Protein (Negative) Urine Glucose (UA) (Negative) Urine Ketones (Negative) Urine Mucus (None) /hpf 09/19/24 09/19/24 09/19/24 Range/Units 11:37 16:50 17:16 Sodium (137-145) mmol/L Chloride (98-107) mmol/L Glucose (74-99) mg/dL POC Glucose (mg/dL) 283 H 198 H (70-110) mg/dL Hemoglobin A1c (<=6.0) % HDL Cholesterol (40.00-60.00) mg/dL Urine Protein 1+ H (Negative) Urine Glucose (UA) 4+ H (Negative) Urine Ketones Trace H (Negative) Urine Mucus Moderate H (None) /hpf 09/19/24 09/20/24 Range/Units 20:02 06:27 Sodium (137-145) mmol/L Chloride (98-107) mmol/L Glucose (74-99) mg/dL POC Glucose (mg/dL) 238 H 160 H (70-110) mg/dL Hemoglobin A1c (<=6.0) % HDL Cholesterol (40.00-60.00) mg/dL Urine Protein (Negative) Urine Glucose (UA) (Negative) Urine Ketones (Negative) Urine Mucus (None) /hpf
--- NOTE | 2024-09-20 12:26 | P.GSCN ---
History of Present Illness Consult date: 09/20/24 Reason for Consult: Infected surgical site right foot Requesting physician: Tiffanie Cade History of present illness: This is a pleasant 74-year-old male with multiple comorbidities who presented to the emergency department for weakness and fall. He has a past medical history including type 2 diabetes and nicotine dependence. He has a history of wounds to his lower extremities and follows with the wound care center. He has seen Dr. June in the past for left toe wound and had undergone amputation of third and fourth toes and debridement. Last debridement was 07/06/2024 at that time he had skin substitute and wound VAC applied. He is now following with Kiya with the wound care center. He has wounds to bilateral feet. During his last hospitalization in June he had ABIs which was not completed however waveforms were satisfactory. He had multiphasic Doppler signals. Patient was admitted with leukocytosis and concerns for right foot infection. Patient currently denies any shortness of breath, chest pain, abdominal pain, nausea or vomiting. States he has tenderness in both of his feet. Occasional pain at rest and with walking. He has been afebrile. Review of Systems A 14 point review systems was completed all pertinent positives and negatives as stated in the HPI. Past Medical History Past Medical History: Diabetes Mellitus, GI Bleed, Hearing Disorder / Deafness Additional Past Medical History / Comment(s): unhealing 2 wounds left foot -from rubbing on medical boot, HX of Diverticultis. Type IIDiabetic. [place]. Perforated ulcer. History of Any Multi-Drug Resistant Organisms: None Reported Past Surgical History: Hernia Repair Additional Past Surgical History / Comment(s): Hernia at age 3. Stomach surgery. Colonoscopy,amputation 2nd digit left foot. Recent amputation of the 5th digit foot -May 2024. Past Anesthesia/Blood Transfusion Reactions: No Reported Reaction Additional Past Anesthesia/Blood Transfusion Reaction / Comm: no hx blood transfusion Past Psychological History: No Psychological Hx Reported Smoking Status: Current every day smoker Past Alcohol Use History: Occasional Additional Past Alcohol Use History / Comment(s): Smokes approx. 1/2ppd, started smoking at age 11. Past Drug Use History: None Reported - Past Family History Sister(s) Family Medical History: Cancer Additional Family Medical History / Comment(s): Breast cancer Medications and Allergies Home Medications Medication Instructions Recorded Confirmed Type No Known Home Medications 09/19/24 09/19/24 History Allergies Allergy/AdvReac Type Severity Reaction Status Date / Time No Known Allergies Allergy Verified 09/19/24 10:26 Surgical - Exam Vital Signs Temp Pulse Resp BP Pulse Ox 99.9 F H 117 H 20 137/81 97 09/18/24 22:29 09/18/24 22:29 09/18/24 22:29 09/18/24 22:29 09/18/24 22:29 General appearance: The patient is alert, oriented, appears in no acute distress. HET: Head is normocephalic and atraumatic. Pupils are equal and reactive. Neck: Supple. Heart: Regular. Lungs: Equal expansion, normal respiratory effort. Abdomen: Soft, nontender, nondistended. Extremities: Right foot with erythema, scabbed wound to the dorsal aspect of foot. Open wound with nonviable tissue to the tendon along the great toe. Left foot with third and fourth toe amputation, surgical site with small open wound with yellow drainage without any odor. No surrounding erythema. Bilateral feet warm to the touch with good capillary refill. Nonpalpable PT or DP pulses. Neurological: No focal deficits. Alert and oriented. Results - Labs 09/18/24 22:35 09/20/24 05:08 Abnormal Lab Results - Last 24 Hours (Table) 09/19/24 09/19/24 09/19/24 Range/Units 10:26 10:26 10:26 Sodium 132 L (137-145) mmol/L Chloride 97 L (98-107) mmol/L Carbon Dioxide (21.6-31.8) mmol/L Glucose 260 H (74-99) mg/dL POC Glucose (mg/dL) (70-110) mg/dL Hemoglobin A1c 9.7 H (<=6.0) % Calcium (8.7-10.3) mg/dL HDL Cholesterol 26.20 L (40.00-60.00) mg/dL Urine Protein (Negative) Urine Glucose (UA) (Negative) Urine Ketones (Negative) Urine Mucus (None) /hpf 09/19/24 09/19/24 09/19/24 Range/Units 11:37 16:50 17:16 Sodium (137-145) mmol/L Chloride (98-107) mmol/L Carbon Dioxide (21.6-31.8) mmol/L Glucose (74-99) mg/dL POC Glucose (mg/dL) 283 H 198 H (70-110) mg/dL Hemoglobin A1c (<=6.0) % Calcium (8.7-10.3) mg/dL HDL Cholesterol (40.00-60.00) mg/dL Urine Protein 1+ H (Negative) Urine Glucose (UA) 4+ H (Negative) Urine Ketones Trace H (Negative) Urine Mucus Moderate H (None) /hpf 09/19/24 09/20/24 09/20/24 Range/Units 20:02 05:08 06:27 Sodium (137-145) mmol/L Chloride (98-107) mmol/L Carbon Dioxide 21.5 L (21.6-31.8) mmol/L Glucose 163 H (74-99) mg/dL POC Glucose (mg/dL) 238 H 160 H (70-110) mg/dL Hemoglobin A1c (<=6.0) % Calcium 8.4 L (8.7-10.3) mg/dL HDL Cholesterol (40.00-60.00) mg/dL Urine Protein (Negative) Urine Glucose (UA) (Negative) Urine Ketones (Negative) Urine Mucus (None) /[facility] Diabetes panel 09/19/24 09/19/24 09/19/24 Range/Units 10:26 10:26 10:26 Sodium 132 L (137-145) mmol/L Potassium 4.5 (3.5-5.1) mmol/L Chloride 97 L (98-107) mmol/L Carbon Dioxide 23 (22-30) mmol/L BUN 18 (9-20) mg/dL Creatinine 0.72 (0.66-1.25) mg/dL Glucose 260 H (74-99) mg/dL Hemoglobin A1c 9.7 H (<=6.0) % Calcium 8.9 (8.4-10.2) mg/dL Triglycerides 89.90 (0.00-149.00) mg/dL HDL Cholesterol 26.20 L (40.00-60.00) mg/dL 09/20/24 Range/Units 05:08 Sodium 135 (137-145) mmol/L Potassium 4.2 (3.5-5.1) mmol/L Chloride 103 (98-107) mmol/L Carbon Dioxide 21.5 L (22-30) mmol/L BUN 10.1 (9-20) mg/dL Creatinine 0.7 (0.66-1.25) mg/dL Glucose 163 H (74-99) mg/dL Hemoglobin A1c (<=6.0) % Calcium 8.4 L (8.4-10.2) mg/dL Triglycerides (0.00-149.00) mg/dL HDL Cholesterol (40.00-60.00) mg/dL Calcium panel 09/19/24 09/20/24 Range/Units 10:26 05:08 Calcium 8.9 8.4 L (8.4-10.2) mg/dL Pituitary panel 09/19/24 09/20/24 Range/Units 10:26 05:08 Sodium 132 L 135 (137-145) mmol/L Potassium 4.5 4.2 (3.5-5.1) mmol/L Chloride 97 L 103 (98-107) mmol/L Carbon Dioxide 23 21.5 L (22-30) mmol/L BUN 18 10.1 (9-20) mg/dL Creatinine 0.72 0.7 (0.66-1.25) mg/dL Glucose 260 H 163 H (74-99) mg/dL Calcium 8.9 8.4 L (8.4-10.2) mg/dL Adrenal panel 09/19/24 09/20/24 Range/Units 10:26 05:08 Sodium 132 L 135 (137-145) mmol/L Potassium 4.5 4.2 (3.5-5.1) mmol/L Chloride 97 L 103 (98-107) mmol/L Carbon Dioxide 23 21.5 L (22-30) mmol/L BUN 18 10.1 (9-20) mg/dL Creatinine 0.72 0.7 (0.66-1.25) mg/dL Glucose 260 H 163 H (74-99) mg/dL Calcium 8.9 8.4 L (8.4-10.2) mg/dL Assessment and Plan Assessment: 1. Bilateral lower extremity diabetic wounds 2. Right foot cellulitis 3. Diabetes mellitus 4. History of left toe infection status post amputation 5. Smoker Plan: 1. CTA with runoff bilateral lower extremities ordered 2. Consult to wound care, known to them 3. Continue antibiotics per recommendations from infectious disease 4. Further recommendations forthcoming pending clinical course Thank you for this consultation, we will continue to follow. The impression and plan of care has been dictated as directed. I performed a history and examination of this patient, discussed the same with the dictator. I agree with the dictator's note ,documented as a scribe. Any additional findings or plans will be noted.
--- NOTE | 2024-09-20 14:04 | CT ---
EXAMINATION TYPE: CT angio abd aorta w/Runoff DATE OF EXAM: 09/20/2024 COMPARISON: None. HISTORY: PAD, nonhealing wounds CT DLP: 1485.20 mGycm. Automated Exposure Control for Dose Reduction was Utilized. CONTRAST: CTA scan of the thorax, abdomen and pelvis and bilateral lower extremities are performed without and with IV Contrast, patient injected with 100ml mL of Isovue 370. Three-D reconstructed images are crea nickie on an independent workstation and reviewed FINDINGS: VASCULAR: Moderate to severe peripheral calcified plaque of the abdominal aorta extends into iliac br anch vessels. Presence of severe calcified plaque makes accurate evaluation of stenosis suboptimal. C annot exclude significant stenosis in the proximal SMA sagittal image 92 series 15. There are 2 right renal arteries, cannot exclude significant stenosis at origin of the inferior right renal artery. Pa tent JOAO. Focal linear hypodensity and JOAO axis image 87 corresponds to coronal images 42 through 44 consistent with chronic small length dissection. Ectatic common iliac arteries bilaterally with severe peripheral calcified plaque. Right-sided common iliac artery measures up to 1.7 cm axial image 127. Severe calcified plaque extends into the externa l iliac arteries bilaterally. No significant stenosis. Severe calcified plaque is seen in the bilater al common femoral arteries extending into the superficial femoral arteries bilaterally without signif icant stenosis clearly seen. Severe calcified plaque is seen along the course of the superficial femoral arteries bilaterally exte nding into the popliteal arteries where there is more severe mixed plaque noted. Areas of significant stenosis at this level are difficult to exclude. Below the knees there is severe peripheral arterial disease bilaterally with poor three-vessel and two-vessel flow. Lung bases: Coronary artery calcification is present. LIVER/GB: Liver is heterogeneously hypodense consistent with diffuse fatty infiltrative hepatocellula r disease. Multiple small calcified intraluminal gallstones. Gallbladder shows no surrounding ill-def ined fluid or fat stranding. PANCREAS: No significant abnormality is seen. SPLEEN: Roughly 1.1 cm simple thin-walled cyst in the medial spleen axial image 54 series 5. ADRENALS: No significant abnormality is seen. KIDNEYS: No renal stones or hydronephrosis. BOWEL:. Scattered colonic diverticula most prominent level of sigmoid colon. No CT evidence for acute diverticulitis. No abnormal small or large bowel dilatation. GENITAL ORGANS: Markedly enlarged prostate consistent with BPH bulging on the bladder base. LYMPH NODES: No greater than 1cm abdominal or pelvic lymph nodes are appreciated. OSSEOUS STRUCTURES: Straightening of the lumbar spine with multilevel spurring and disc space narrowi ng. Lower extremities: Tricompartment changes bilateral knees greatest medial tibiofemoral compartment. M oderate subcutaneous edema below the level of the knees greatest near the ankles is present bilateral ly right slightly larger than left. OTHER: No significant additional abnormality is seen. IMPRESSION: Severe atrophic change of aorta extending into branch vessels with most severe findings i n the bilateral lower extremities below the knees. Multifocal significant stenoses are present bilat erally below the knees with poor flow seen bilaterally and lower extremity swelling noted. Other find ings are noted as detailed above. [facility], , 09/20/2024 2:02 PM
[2024-09-20 14:30] VITALS: BMI 38.2
[2024-09-20] MEDS: AMPICILLIN-SULBACTAM 3 GM in SODIUM CHLORIDE 0.9% 100 ML IVPB SCH ×2 (15:53→20:46)
[2024-09-20 17:21] LABS: Glucose,Whole Blood 181 mg/dL (70-110)
[2024-09-20] MEDS: INSULIN DETEMIR (LEVEMIR) 100 UNIT/ML SYR SQ ONE (18:01)
[2024-09-20 20:20] LABS: Glucose,Whole Blood 183 mg/dL (70-110)
--- NOTE | 2024-09-21 05:55 | P.CONS ---
History of Present Illness - Reason for Consult Consult date: 09/20/24 Infected surgical site, wound Requesting physician: Tiffanie Cade - Chief Complaint Weakness and passed out x 1 day - History of Present Illness Patient is a 74-year-old male with a past medical history significant for diabetes mellitus GI bleed diabetic foot ulcer in this patient did have a left fourth and fifth toe amputation and debridement with a chronic nonhealing wound to the left foot with recent debridement of the left foot on 07/06/2024 patient now presenting to the hospital with a syncopal episode and noticed to have a necrotic wound to the right big toe on the medial aspect patient not very clear when he started having a problem with the right big toe also any history of any trauma has been complaining of some pain which is mostly dull aching mild to moderate intensity without radiation patient denies any foul-smelling drainage on presentation to the hospital the patient was running low-grade fever of 99.9 F patient was mildly tachycardic but not hypotensive or hypoxic patient did have white count of 18,000 with a left shift creatinine 0.79 liver enzymes are normal urine has been negative urine drug screen was negative patient did have chest x-ray no acute cardiopulmonary disease process patient was started on cefazolin infectious disease was consulted for further management of bilateral lower extremity infected wound Review of Systems Positive point and negatives has been mentioned in the HPI, complete review of systems was performed and all other systems are negative Past Medical History Past Medical History: Diabetes Mellitus, GI Bleed, Hearing Disorder / Deafness Additional Past Medical History / Comment(s): unhealing 2 wounds left foot -from rubbing on medical boot, HX of Diverticultis. Type IIDiabetic. [place]. Perforated ulcer. History of Any Multi-Drug Resistant Organisms: None Reported Past Surgical History: Hernia Repair Additional Past Surgical History / Comment(s): Hernia at age 3. Stomach surgery. Colonoscopy,amputation 2nd digit left foot. Recent amputation of the 5th digit foot -May 2024. Past Anesthesia/Blood Transfusion Reactions: No Reported Reaction Additional Past Anesthesia/Blood Transfusion Reaction / Comm: no hx blood transfusion Past Psychological History: No Psychological Hx Reported Smoking Status: Current every day smoker Past Alcohol Use History: Occasional Additional Past Alcohol Use History / Comment(s): Smokes approx. 1/2ppd, started smoking at age 11. Past Drug Use History: None Reported - Past Family History Sister(s) Family Medical History: Cancer Additional Family Medical History / Comment(s): Breast cancer Medications and Allergies Home Medications Medication Instructions Recorded Confirmed Type No Known Home Medications 09/19/24 09/19/24 History Allergies Allergy/AdvReac Type Severity Reaction Status Date / Time No Known Allergies Allergy Verified 09/19/24 10:26 Physical Exam Vitals: Vital Signs Temp Pulse Pulse Pulse Resp BP BP 09/20/24 04:38 98.2 F 96 19 09/19/24 20:00 98.6 F 93 22 09/19/24 19:37 99.2 F 107 H 18 09/19/24 15:00 68 16 09/19/24 13:33 97.7 F 80 16 108/61 09/19/24 12:45 98.5 F 97 16 121/62 BP BP Pulse Ox 09/20/24 04:38 135/74 98 09/19/24 20:00 155/78 93 L 09/19/24 19:37 132/65 100 09/19/24 15:00 95 09/19/24 13:33 123/69 131/65 99 09/19/24 12:45 97 Intake and Output 09/19/24 09/20/24 09/20/24 22:59 06:59 14:59 Other: # Voids 1 2 GENERAL DESCRIPTION: Elderly male up in bed, no distress. No tachypnea or accessory muscle of respiration use. HEENT: Shows Pallor , no scleral icterus. Oral mucous membrane is dry. No pharyngeal erythema or thrush NECK: Trachea central, no thyromegaly. LUNGS: Unlabored breathing. Clear to auscultation anteriorly. No wheeze or crackle. HEART: S1, S2, regular rate and rhythm. No loud murmur ABDOMEN: Soft, no tenderness , guarding or rigidity, no organomegaly EXTREMITIES: Left foot lateral border wound with no significant slough tissue swelling redness or drainage patient did have a necrotic wound to the medial aspect of the right big toe with some erythema to the right foot SKIN: No rash, no masses palpable. NEUROLOGICAL: The patient is awake, alert, oriented x3, mood and affect normal. Results CBC & Chem 7: 09/18/24 22:35 09/20/24 05:08 Labs: Abnormal Lab Results - Last 24 Hours (Table) 01/02/0609/19/24 09/19/24 Range/Units 10:26 10:26 10:26 Sodium 132 L (137-145) mmol/L Chloride 97 L (98-107) mmol/L Carbon Dioxide (21.6-31.8) mmol/L Glucose 260 H (74-99) mg/dL POC Glucose (mg/dL) (70-110) mg/dL Hemoglobin A1c 9.7 H (<=6.0) % Calcium (8.7-10.3) mg/dL HDL Cholesterol 26.20 L (40.00-60.00) mg/dL Urine Protein (Negative) Urine Glucose (UA) (Negative) Urine Ketones (Negative) Urine Mucus (None) /hpf 09/19/24 09/19/24 09/19/24 Range/Units 11:37 16:50 17:16 Sodium (137-145) mmol/L Chloride (98-107) mmol/L Carbon Dioxide (21.6-31.8) mmol/L Glucose (74-99) mg/dL POC Glucose (mg/dL) 283 H 198 H (70-110) mg/dL Hemoglobin A1c (<=6.0) % Calcium (8.7-10.3) mg/dL HDL Cholesterol (40.00-60.00) mg/dL Urine Protein 1+ H (Negative) Urine Glucose (UA) 4+ H (Negative) Urine Ketones Trace H (Negative) Urine Mucus Moderate H (None) /hpf 09/19/24 09/20/24 09/20/24 Range/Units 20:02 05:08 06:27 Sodium (137-145) mmol/L Chloride (98-107) mmol/L Carbon Dioxide 21.5 L (21.6-31.8) mmol/L Glucose 163 H (74-99) mg/dL POC Glucose (mg/dL) 238 H 160 H (70-110) mg/dL Hemoglobin A1c (<=6.0) % Calcium 8.4 L (8.7-10.3) mg/dL HDL Cholesterol (40.00-60.00) mg/dL Urine Protein (Negative) Urine Glucose (UA) (Negative) Urine Ketones (Negative) Urine Mucus (None) /hpf Assessment and Plan (1) Diabetic gangrene Current Visit: No Status: Acute Code(s): E11.52 - TYPE 2 DIABETES W DIABETIC PERIPHERAL ANGIOPATHY W GANGRENE SNOMED Code(s): 794149939 (2) Diabetic infection of left foot Current Visit: No Status: Acute Code(s): E11.628 - TYPE 2 DIABETES MELLITUS WITH OTHER SKIN COMPLICATIONS; L08.9 - LOCAL INFECTION OF THE SKIN AND SUBCUTANEOUS TISSUE, UNSP SNOMED Code(s): 788918571 (3) Non-pressure chronic ulcer of other part of left foot with fat layer exposed Current Visit: No Status: Acute Code(s): L97.522 - NON-PRS CHRONIC ULCER OTH PRT LEFT FOOT W FAT LAYER EXPOSED SNOMED Code(s): 03351603948161183 Plan: 1patient with right big toe diabetic foot with a necrotic wound and evidence of secondary cellulitis will need to cover for the polymicrobial mariano associated with diabetic foot infection 2-patient also have a nonhealing wound on the left foot lateral border postdilatation of the left fourth and fifth toe but no significant purulent drainage was noticed from the site 3-await vascular surgery evaluation debridement and deep culture 4-discontinue cefazolin 5-we will start the patient on Unasyn 3 g every 6 hours pending workup completion We will follow on clinical condition and cultures to further adjust medication if needed Thank you for this consultation we will follow the patient along with you Dictation was produced using [employer] dictation software. please excuse any grammatical, word or spelling errors. Time with Patient: Greater than 30
[2024-09-21 06:23] LABS: Glucose,Whole Blood 144 mg/dL (70-110)
--- NOTE | 2024-09-21 10:34 | P.CONS ---
History of Present Illness - Reason for Consult Consult date: 09/21/24 wound care - History of Present Illness Is a 74-year-old patient known to the wound care center with a guarded prognosis. Patient has been following the wound care center for the last few weeks utilizing Santyl. However the patient continues to smoke. Discussed in length multiple times the importance of not smoking and the effects related to limb salvage. Original cause of wound was Gradually Appeared. The date acquired was: 06/15/2024. The wound has been in treatment 2 weeks. The wound is currently classified as a Grade 3 wound with etiology of Diabetic Wound/Ulcer of the Lower Extremity and is located on the Left,Lateral Foot. The wound measures 1.2cm length x 0.6cm width x 0.5cm depth; 0.565cm^2 area and 0.283cm^3 volume. There is Fat Layer (Subcutaneous Tissue) and fascia exposed. There is no tunneling noted, however, there is undermining starting at :00 and ending at :00. There is a large amount of serosanguineous drainage noted. Foul odor after cleansing was noted. The wound margin is well defined and not attached to the wound base. There is small (1-33%) pink granulation within the wound bed. There is a large (67-100%) amount of necrotic tissue within the wound bed including Eschar. The periwound skin appearance exhibited: Callus, Scarring, Maceration, Erythema. The periwound skin appearance did not exhibit: Crepitus, Excoriation, Induration, Rash, Atrophie [place], Cyanosis, Ecchymosis, Hemosiderin Staining, Mottled, Pallor, Rubor. The surrounding wound skin color is noted with erythema which is circumferential. Periwound temperature was noted as No Abnormality. The periwound has tenderness on palpation. Original cause of wound was Gradually Appeared. The date acquired was: 07/16/2024. The wound has been in treatment 2 weeks. The wound is currently classified as a Grade 2 wound with etiology of Diabetic Wound/Ulcer of the Lower Extremity and is located on the Right,Medial Toe Great. The wound measures 3.3cm length x 3.3cm width x 0.1cm depth; 8.553cm^2 area and 0.855cm^3 volume. There is Fat Layer (Subcutaneous Tissue) exposed. There is no tunneling or undermining noted. There is a medium amount of serosanguineous drainage noted. Foul odor after cleansing was noted. The wound margin is distinct with the outline attached to the wound base. There is small (1-33%) pink granulation within the wound bed. There is a large (67-100%) amount of necrotic tissue within the wound bed including Eschar. The periwound skin appearance exhibited: Scarring, Maceration. The periwound skin appearance did not exhibit: Callus, Crepitus, Excoriation, Induration, Rash, Dry/Scaly, Atrophie [place], Cyanosis, Ecchymosis, Hemosiderin Staining, Mottled, Pallor, Rubor, Erythema. Periwound temperature was noted as No Abnormality. The periwound has tenderness on palpation. Left foot has shown minimal improvement right foot continues to have surface necrosis Review Of Systems: Constitutional: No fever, no chills, no night sweats. No weight change. No weakness, fatigue or lethargy. No daytime sleepiness. Integumentary:reports wounds, no lesions. No rash or pruritus. No unusual bruising. No change in hair or nails. Physical exam: General Appearance: Alert, cooperative, no distress, appears stated age. Skin: See HPI all other Skin color, texture, tugor normal, no rashes or lesions. Neurologic: Alert oriented x3 Assessment: 1. 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 Nonpressure chronic ulcer of other part of right foot with necrosis of m uscle 3. Osteomyelitis 4. Diabetes with foot ulceration Plan: 1. We will continue with Santyl to bilateral lower extremities. Patient will return to the wound care center September 23 at 2:00 unless he is still inpatient then he will come September 30 at 2:00 Thank you for the consultation any questions please contact the wound care center DNP note has been reviewed and discussed with Dr. Garcia and the impression and plan of care has been directed as dictated. Past Medical History Past Medical History: Diabetes Mellitus, GI Bleed, Hearing Disorder / Deafness Additional Past Medical History / Comment(s): unhealing 2 wounds left foot -from rubbing on medical boot, HX of Diverticultis. Type IIDiabetic. [place]. Perforated ulcer. History of Any Multi-Drug Resistant Organisms: None Reported Past Surgical History: Hernia Repair Additional Past Surgical History / Comment(s): Hernia at age 3. Stomach surgery. Colonoscopy,amputation 2nd digit left foot. Recent amputation of the 5th digit foot -May 2024. Past Anesthesia/Blood Transfusion Reactions: No Reported Reaction Additional Past Anesthesia/Blood Transfusion Reaction / Comm: no hx blood transfusion Past Psychological History: No Psychological Hx Reported Smoking Status: Current every day smoker Past Alcohol Use History: Occasional Additional Past Alcohol Use History / Comment(s): Smokes approx. 1/2ppd, started smoking at age 11. Past Drug Use History: None Reported - Past Family History Sister(s) Family Medical History: Cancer Additional Family Medical History / Comment(s): Breast cancer Medications and Allergies Home Medications Medication Instructions Recorded Confirmed Type No Known Home Medications 09/19/24 09/19/24 History Allergies Allergy/AdvReac Type Severity Reaction Status Date / Time No Known Allergies Allergy Verified 09/19/24 10:26 Physical Exam Vitals: Vital Signs Temp Pulse Resp BP Pulse Ox 09/21/24 07:00 98.5 F 70 15 133/60 98 09/21/24 00:48 98.2 F 101 H 18 131/73 99 09/20/24 20:16 99.0 F 67 18 134/72 93 L 09/20/24 14:43 98.2 F 99 18 134/81 96 Intake and Output 09/20/24 09/21/24 09/21/24 22:59 06:59 14:59 Intake Total 118 118 Balance 118 118 Intake: Oral 118 118 Other: # Voids 1 3 Results CBC & Chem 7: 09/18/24 22:35 09/20/24 05:08 Labs: Abnormal Lab Results - Last 24 Hours (Table) 09/20/24 09/20/24 09/20/24 Range/Units 12:20 17:19 20:19 POC Glucose (mg/dL) 281 H 181 H 183 H (70-110) mg/dL 09/21/24 Range/Units 06:22 POC Glucose (mg/dL) 144 H (70-110) mg/dL Microbiology - Last 24 Hours (Table) 09/20/24 00:15 Gram Stain - Preliminary Foot - Left Assessment and Plan (1) Non-pressure chronic ulcer of other part of right foot with necrosis of muscle Current Visit: Yes Status: Acute Code(s): L97.513 - NON-PRS CHRONIC ULCER OTH PRT RIGHT FOOT W NECROS MUSCLE SNOMED Code(s): 47750953253245102 (2) Osteomyelitis, unspecified Current Visit: Yes Status: Acute Code(s): M86.9 - OSTEOMYELITIS, UNSPECIFIED SNOMED Code(s): 98597381 (3) Non-pressure chronic ulcer of other part of left foot with necrosis of bone Current Visit: No Status: Acute Code(s): L97.524 - NON-PRS CHRONIC ULCER OTH PRT LEFT FOOT W NECROSIS OF BONE SNOMED Code(s): 95114754985893556 (4) Type 2 diabetes mellitus with foot ulcer Current Visit: No Status: Acute Code(s): E11.621 - TYPE 2 DIABETES MELLITUS WITH FOOT ULCER; L97.509 - NON-PRESSURE CHRONIC ULCER OTH PRT UNSP FOOT W UNSP SEVERITY SNOMED Code(s): 5167887069200
[2024-09-21 10:47] LABS: Basophils # (A) 0.06 X 10*3/uL (0.00-0.10); Basophils % (A) 0.4 %; Eosinophils # (A) 0.04 X 10*3/uL (0.04-0.35); Eosinophils % (A) 0.3 %; HCT 36.6 % (39.6-50.0); HGB 11.6 g/dL (13.0-17.0); Lymphocytes # (A) 1.43 X 10*3/uL (0.90-5.00); Lymphocytes % (A) 10.4 %; MCH 30.4 pg (27.0-32.0); MCHC 31.7 g/dL (32.0-37.0); MCV 96.1 FL (80.0-97.0); Mean Platelet Volume 11.6 FL (9.5-12.2); Monocytes # (A) 1.45 X 10*3/uL (0.20-1.00); Monocytes % (A) 10.5 %; NRBC Per 100 WBC 0 X 10*3/uL (0.00-0.01); Neutrophils # (A) 10.73 X 10*3/uL (1.80-7.70); Neutrophils % (A) 77.8 %; Platelet Count 249 X 10*3/uL (140-440); RBC 3.81 X 10*6/uL (4.40-5.60); RDW 11.7 % (11.5-14.5); WBC 13.79 X 10*3/uL (4.50-10.00)
[2024-09-21 11:05] LABS: ALT 23 U/L (10-49); AST 33 U/L (14-35); Albumin 3.1 g/dL (3.8-4.9); Albumin/Globulin Ratio 0.91 Ratio (1.60-3.17); Alkaline Phosphatase 104 U/L (41-126); BUN/Creat Ratio 12.29 Ratio (12.00-20.00); Blood Urea Nitrogen 8.6 mg/dL (9.0-27.0); Calcium 8.5 mg/dL (8.7-10.3); Chloride 99 mmol/L (96-109); Globulin 3.4 g/dL (1.6-3.3); Glucose 126 mg/dL (70-110); Potassium 4.1 mmol/L (3.5-5.5); Sodium 134 mmol/L (135-145); Total Bilirubin 0.6 mg/dL (0.3-1.2); Total Protein 6.5 g/dL (6.2-8.2)
[2024-09-21 12:07] LABS: Glucose,Whole Blood 289 mg/dL (70-110)
--- NOTE | 2024-09-21 12:50 | P.PN ---
Subjective Progress Note Date: 09/21/24 Principal diagnosis: Cellulitis Patient is seated examined today as a follow-up. Currently has some tremors in his hands which she states is normal for him and comes and goes. He had a CTA of the lower extremities with reported findings of severe atrophic change of aorta extending into branch vessels with most severe findings in the bilateral lower extremities below the knees. Multifocal significant stenosis are present bilaterally below the knees with poor flow seen bilaterally and lower extremity swelling noted. Patient states he would like to go home tomorrow. He is currently on Unasyn. He remains afebrile. Objective - Vital Signs Vital signs: Vital Signs Temp 98.5 F 09/21/24 07:00 Pulse 70 09/21/24 07:00 Resp 15 09/21/24 07:00 BP 133/60 09/21/24 07:00 Pulse Ox 98 09/21/24 07:00 FiO2 Intake & Output 09/20/24 09/21/24 09/21/24 18:59 06:59 18:59 Intake Total 354 118 Output Total 900 Balance -546 118 Weight 117.48 kg Intake: Oral 354 118 Output: Urine 900 Other: # Voids 3 - Exam General appearance: The patient is alert, oriented, appears in no acute distress. HET: Head is normocephalic and atraumatic. Pupils are equal and reactive. Neck: Supple. Heart: Regular. Lungs: Equal expansion, normal respiratory effort. Abdomen: Soft, nontender, nondistended. Extremities: Normal skin color and turgor. Palpable radial pulses. Bilateral feet with dressing clean dry and intact. Neurological: Patient has bilateral upper extremity tremors. He is alert and oriented. - Labs CBC & Chem 7: 09/21/24 06:16 09/21/24 06:16 Labs: Abnormal Lab Results - Last 24 Hours (Table) 09/20/24 09/20/24 09/20/24 Range/Units 12:20 17:19 20:19 POC Glucose (mg/dL) 281 H 181 H 183 H (70-110) mg/dL 09/21/24 Range/Units 06:22 POC Glucose (mg/dL) 144 H (70-110) mg/dL Microbiology - Last 24 Hours (Table) 09/20/24 00:15 Gram Stain - Preliminary Foot - Left Assessment and Plan Assessment: 1. Bilateral lower extremity diabetic wounds 2. Right foot cellulitis 3. Diabetes mellitus 4. History of left toe infection status post amputation 5. Smoker Plan: 1. CTA with runoff bilateral lower extremities ordered and reviewed 2. Continue local wound care per recommendations from wound clinic 3. Continue antibiotics per recommendations from infectious disease 4. Will plan for catheter directed diagnostic angiogram tomorrow with further recommendations 5. Hold Xarelto this evening and morning dose 6. Patient n.p.o. after midnight, may have light breakfast at 6 AM but nothing after 7 AM. Thank you for this consultation, we will continue to follow. The impression and plan of care has been dictated as directed. Dr. Ko I performed a history and examination of this patient, discussed the same with the dictator. I agree with the dictator's note ,documented as a scribe. Any additional findings or plans will be noted.
--- NOTE | 2024-09-21 15:08 | P.PN ---
Subjective Progress Note Date: 09/21/24 Principal diagnosis: Reason for follow-up is bilateral diabetic foot ulcer cellulitis Patient is a 74-year-old male with a past medical history significant for diabetes mellitus GI bleed diabetic foot ulcer in this patient did have a left fourth and fifth toe amputation and debridement with a chronic nonhealing wound to the left foot admitted to hospital with a syncopal episode and patient also noticed to have a necrotic wound to the right big toe. On today's evaluation that is 09/21/2023, Patient is afebrile this morning patient denies having any chest pain shortness of breath or cough, the patient is currently on room air, patient denies any abdominal pain no diarrhea no nausea no vomiting, denies any worsening pain to bilateral foot wound area. Patient white count is down to 13.78, creatinine 0.7 left foot cultures currently growing Enterobacter Objective - Vital Signs Vital signs: Vital Signs Temp 98.5 F 09/21/24 07:00 Pulse 70 09/21/24 07:00 Resp 15 09/21/24 07:00 BP 133/60 09/21/24 07:00 Pulse Ox 98 09/21/24 07:00 FiO2 Intake & Output 09/20/24 09/21/24 09/21/24 18:59 06:59 18:59 Intake Total 354 118 Output Total 900 Balance -546 118 Weight 117.48 kg Intake: Oral 354 118 Output: Urine 900 Other: # Voids 3 - Exam GENERAL DESCRIPTION: An elderly male lying in bed in no distress RESPIRATORY SYSTEM: Unlabored breathing , decreased breath sounds at bases HEART: S1 S2 regular rate and rhythm , ABDOMEN: Soft , no tenderness EXTREMITIES: Bilateral feet were currently dressed - Labs CBC & Chem 7: 09/21/24 06:16 09/21/24 06:16 Labs: Abnormal Lab Results - Last 24 Hours (Table) 09/20/24 09/20/24 09/21/24 Range/Units 17:19 20:19 06:16 WBC 13.79 H (4.50-10.00) X 10*3/uL RBC 3.81 L (4.40-5.60) X 10*6/uL Hgb 11.6 L (13.0-17.0) g/dL Hct 36.6 L (39.6-50.0) % MCHC 31.7 L (32.0-37.0) g/dL Immature Gran # 0.08 H (0.00-0.04) X 10*3/uL Neutrophils # 10.73 H (1.80-7.70) X 10*3/uL Monocytes # 1.45 H (0.20-1.00) X 10*3/uL Sodium (135-145) mmol/L Carbon Dioxide (21.6-31.8) mmol/L Anion Gap (4.00-12.00) mmol/L BUN (9.0-27.0) mg/dL Glucose (70-110) mg/dL POC Glucose (mg/dL) 181 H 183 H (70-110) mg/dL Calcium (8.7-10.3) mg/dL Albumin (3.8-4.9) g/dL Globulin (1.6-3.3) g/dL Albumin/Globulin Ratio (1.60-3.17) Ratio 09/21/24 09/21/24 09/21/24 Range/Units 06:16 06:22 12:05 WBC (4.50-10.00) X 10*3/uL RBC (4.40-5.60) X 10*6/uL Hgb (13.0-17.0) g/dL Hct (39.6-50.0) % MCHC (32.0-37.0) g/dL Immature Gran # (0.00-0.04) X 10*3/uL Neutrophils # (1.80-7.70) X 10*3/uL Monocytes # (0.20-1.00) X 10*3/uL Sodium 134 L (135-145) mmol/L Carbon Dioxide 21.0 L (21.6-31.8) mmol/L Anion Gap 14.00 H (4.00-12.00) mmol/L BUN 8.6 L (9.0-27.0) mg/dL Glucose 126 H (70-110) mg/dL POC Glucose (mg/dL) 144 H 289 H (70-110) mg/dL Calcium 8.5 L (8.7-10.3) mg/dL Albumin 3.1 L (3.8-4.9) g/dL Globulin 3.4 H (1.6-3.3) g/dL Albumin/Globulin Ratio 0.91 L (1.60-3.17) Ratio Microbiology - Last 24 Hours (Table) 09/19/24 21:08 Blood Culture - Preliminary Blood 09/20/24 00:15 Gram Stain - Preliminary Foot - Left Wound Culture - Preliminary Enterobacter cloacae Complex Assessment and Plan (1) Diabetic gangrene Current Visit: No Status: Acute Code(s): E11.52 - TYPE 2 DIABETES W DIABETIC PERIPHERAL ANGIOPATHY W GANGRENE SNOMED Code(s): 898092065 (2) Diabetic infection of left foot Current Visit: No Status: Acute Code(s): E11.628 - TYPE 2 DIABETES MELLITUS WITH OTHER SKIN COMPLICATIONS; L08.9 - LOCAL INFECTION OF THE SKIN AND SUBCUTANEOUS TISSUE, UNSP SNOMED Code(s): 369797189 (3) Non-pressure chronic ulcer of other part of left foot with fat layer exposed Current Visit: No Status: Acute Code(s): L97.522 - NON-PRS CHRONIC ULCER OTH PRT LEFT FOOT W FAT LAYER EXPOSED SNOMED Code(s): 17203197200404618 Plan: 1patient with right big toe diabetic foot with a necrotic wound and evidence of secondary cellulitis will need to cover for the polymicrobial mariano associated with diabetic foot infection 2-patient also have a nonhealing wound on the left foot lateral border postdilatation of the left fourth and fifth toe but no significant purulent drainage was noticed from the site 3- vascular surgery has evaluated the patient and has ordered an angiogram followed by possible debridement discussed with the surgeon to obtain culture at the time of debridement 4-local culture now growing Enterobacter I will discontinue Unasyn and start the patient on Zosyn for better gram-negative coverage Dictation was produced using [employer] dictation software. please excuse any grammatical, word or spelling errors. Time with Patient: Less than 30
[2024-09-21 17:16] LABS: Glucose,Whole Blood 160 mg/dL (70-110)
[2024-09-21] MEDS: COLLAGENASE 250 UNIT/GM OINTMENT 30 GM TUBE TOPICAL SCH (17:42)
[2024-09-21] MEDS: PIPERACILLIN-TAZOBACTAM 3.375 GM in SODIUM CHLORIDE 0.9% 100 ML IVPB SCH (17:42)
[2024-09-21 20:32] LABS: Glucose,Whole Blood 197 mg/dL (70-110)
--- NOTE | 2024-09-22 04:51 | P.PN ---
Subjective Progress Note Date: 09/21/24 Syncope Per medical H&P, "74-year-old male was brought in because he had a fall at the time they would not show to the patient is not visible patient denies a couple episode apparently patient had altered mental status patient is almost alert oriented x 3 when I evaluated the patient patient denied any UTI symptoms patient was complaining of generalized weakness. Patient does have leukocytosis without any evidence of infection at this time patient denied any cough. Patient blood sugars are high unknown what patient takes as patient does not know what she takes. Patient was discharged on 20 units of Lantus in month of February. Patient is hyponatremic and hyperkalemic." Progress note for 09/20/2024: Patient was seen at bedside today. Labs from today showed sodium 135, potassium 4.2, chloride 103, carbon dioxide 21.5, BUN 10.1, creatinine 0.7, glucose 163, hemoglobin A1c of 9.7. Vitals temperature of 98.2, pulse rate of 96, respiratory rate 19, blood pressure 135/74, O2 sat 98% on room air. Brain CT obtained last night showed no acute intracranial abnormality. Sean abarca denies any acute complaints at this time. Patient denies any fever, chills, dizziness,, chest pain, shortness of breath/vomiting, belly pain. Patient was noted to have very big open wound on his right big toe with signs of necrosis. 09/21/2024 Patient is seen in follow-up this morning currently sitting up at the chair with multiple consultations following including vascular surgery and infectious disease. Wound care consulted and pending at this time. Vascular surgery with plans of angiogram on 09/22/2024. Patient will be n.p.o. at midnight and will await report. Follow-up with repeat labs and continue current local wound care. Jayro wraps not recommended on lower extremities. Patient is afebrile denies chest pain or shortness of breath. Patient reports intermittent pain of the lower extremities although controlled on current regimen. Review of systems: Constitutional: No reports of fatigue, fever, or chills Cardiovascular: No reports of chest pain or palpitations Respiratory: No reports of shortness of breath or cough GI: No reports of nausea, vomiting, or diarrhea : No reports of dysuria or retention Neurovascular: reports of generalized weakness and right foot pain All medications have been reviewed Physical exam: GENERAL: This is a 74-year-old in no apparent distress at the time of examination. Pleasant and cooperative. Well-developed, elderly appearing HEENT: Head is atraumatic, normocephalic. Pupils are equal, round, and reactive to light. Sclerae anicteric. Conjunctivae are clear. Mucus membranes of the mouth are moist. Neck is supple. RESPIRATORY: Clear to auscultation. No wheezes, rales, or rhonchi. No use of accessory muscles. Patient maintaining oxygen saturation greater than 92%. No chest wall tenderness is noted on palpation or with deep breathing. CARDIOVASCULAR: Regular rate and rhythm. S1 and S2 noted. No systolic or d iastolic murmur auscultated. No JVD noted. No S3 or S4 noted. GASTROINTESTINAL: No distention noted. Abdomen soft and round. Normal active bowel sounds auscultated x 4 quadrants. No pain or tenderness noted upon palpation. INTEGUMENTARY: No cyanosis. No jaundice. No rashes noted. No cellulitis noted. EXTREMITIES: 2+ peripheral pulses. No evidence of peripheral edema. No calf tenderness noted. 4 cm x 2 cm necrotic wound noted on right big toe NEUROLOGIC: Cranial nerves II-XII intact. PSYCHIATRIC: Awake, alert. Appropriate affect. Intact judgement and insight. Assessment: Fall, may be secondary to generalized weakness and dehydration Non-healing foot wounds, history of gangrene/osteomyelitis with previous toe amputation and debridement with Dr. June Leukocytosis possibly secondary to above Hypovolemic hyponatremia, resolved Hyperkalemia with slight hemolysis, resolved Type 2 diabetes mellitus Generalized weakness GI prophylaxis DVT prophylaxis Full code Plan: Patient being followed by multiple consultations including infectious disease, vascular surgery, wound care which is pending Continue local wound care per ID and will continue on antibiotics per ID recommendations. Patient has been transition to [facility] Vascular surgery following with plans on angiogram on 09/22/2024. Discussed possible deep cultures although patient is not currently going to OR. Awaiting report from angiogram per Dr. June to assess if further debridement or surgical intervention is required. Continue wound care recommendations for wound on the right big toe, the wound on his right big toe is very concerning with signs of necrosis, may possibly need amputation. Follow-up on repeat labs, replace electrolytes per protocol Continue monitoring Accu-Cheks before meals and at bedtime along with sliding scale and will adjust insulins accordingly Anticoagulation being held tonight and tomorrow per vascular surgery The impression and plan of care has been dictated by Gloria Shore, Nurse Practitioner as directed. Dr. Africa MD I have performed a history and examination and MDM of this patient, discussed the same with the dictator, and agree with the dictator's assessment and plan as written ,documented as a scribe. Based on total visit time, I have performed more than 50% of the visit. Objective - Vital Signs Vital signs: Vital Signs Temp 98.5 F 09/21/24 07:00 Pulse 70 09/21/24 07:00 Resp 15 09/21/24 07:00 BP 133/60 09/21/24 07:00 Pulse Ox 98 09/21/24 07:00 FiO2 Intake & Output 09/20/24 09/21/24 09/21/24 18:59 06:59 18:59 Intake Total 354 118 Output Total 900 Balance -546 118 Weight 117.48 kg Intake: Oral 354 118 Output: Urine 900 Other: # Voids 3 - Labs CBC & Chem 7: 09/21/24 06:16 09/21/24 06:16 Labs: Abnormal Lab Results - Last 24 Hours (Table) 09/20/24 09/20/24 09/20/24 Range/Units 12:20 17:19 20:19 POC Glucose (mg/dL) 281 H 181 H 183 H (70-110) mg/dL 09/21/24 Range/Units 06:22 POC Glucose (mg/dL) 144 H (70-110) mg/dL Microbiology - Last 24 Hours (Table) 09/20/24 00:15 Gram Stain - Preliminary Foot - Left
[2024-09-22 06:32] LABS: Glucose,Whole Blood 129 mg/dL (70-110)
[2024-09-22 06:35] LABS: African American GFR (CKD) >90 (>60 ml/min/1.73 sqM); Anion Gap 14 mmol/L; Blood Urea Nitrogen 15 mg/dL (9-20); Calcium 8.8 mg/dL (8.4-10.2); Carbon Dioxide 19 mmol/L (22-30); Chloride 101 mmol/L (98-107); Glucose 127 mg/dL (74-99); Non-African American GFR(CKD) >90 (>60 ml/min/1.73 sqM); Potassium 4.3 mmol/L (3.5-5.1); Sodium 134 mmol/L (137-145)
[2024-09-22 06:43] LABS: Basophils # (A) 0.1 k/uL (0-0.2); Basophils % (A) 0 %; Eosinophils % (A) 0 %; HCT 39.2 % (39.0-53.0); HGB 12.5 gm/dL (13.0-17.5); Hypochromasia Slight; Lymphocytes # (A) 0.9 k/uL (1.0-4.8); Lymphocytes % (A) 6 %; MCH 31.7 pg (25.0-35.0); MCHC 31.9 g/dL (31.0-37.0); MCV 99.5 fL (80.0-100.0); Mean Platelet Volume 8.9; Monocytes % (A) 6 %; Neutrophils % (A) 87 %; Platelet Count 273 k/uL (150-450); RBC 3.94 m/uL (4.30-5.90); RDW 11.9 % (11.5-15.5); WBC 16.2 k/uL (3.8-10.6)
[2024-09-22] MEDS: fentaNYL (PF) 50 MCG/ML 2 ML AMP IVP ONE ×2 (07:40→07:48)
[2024-09-22] MEDS: MIDAZOLAM 2 MG/2 ML VIAL IVP ONE (07:40)
[2024-09-22] MEDS: LIDOCAINE 1% INJ 10MG/ML (20 ML MDV) SQ ONE (07:41)
[2024-09-22] MEDS: VERAPAMIL SYRINGE (5 MG/10 ML) INTRAARTER ONE (07:43)
[2024-09-22] MEDS: HEPARIN SODIUM 1,000 UN/ML (10ML VL) IV ONE (07:43)
[2024-09-22] MEDS: NITROGLYCERIN 1000MCG/10ML SYRINGE INTRAARTER ONE (07:43)
[2024-09-22] MEDS: SODIUM CHLORIDE 0.9% 500 ML 500 ML IV ONE (07:55)
[2024-09-22] MEDS: IOPAMIDOL-250 100ML BTL INTRAARTER ONE (07:58)
--- NOTE | 2024-09-22 08:18 | P.OP ---
Date of Procedure: 09/22/24 Description of Procedure: Preoperative diagnosis: Ballard 5 peripheral arterial disease bilateral lower extremity Postoperative diagnosis: Same Procedure: Ultrasound-guided right radial artery access Placement of catheter in infrarenal abdominal aorta, selective second order, from radial approach Aortogram with bilateral lower extremity runoffs Moderate conscious sedation with personal monitoring certified RN administration and personal hemodynamic monitoring for 21 minutes Surgeon: Halina June D.O. EBL: Less than 5 cc IV fluids: See records Urine output: Not measured Drains: None Complications: None immediately apparent Condition: Stable to recovery Operative indication and findings: Patient is [id number] with peripheral vascular disease. On workup and evaluation was found to have wounds and previously noted to have abnormal CARTER with noncompressibility therefore recommendations were for angiogram. Risks and benefits including but not limited to bleeding, infection, injury to the vessel, stroke, cardiopulmonary risks and ischemic changes to the extremities were discussed. They seemingly understood this willing to proceed. Procedure in detail: Patient was taken to the special suite and placed in supine position. The right upper extremity was prepped and draped in usual sterile fashion. A preprocedural timeout was performed, all parties were in agreement. Using the ultrasound, the radial artery was identified. The skin overlying was anesthetized with 1% lidocaine plain. The artery was patent without significant calcific disease and a permanent image was stored. Under direct visualization, the artery was accessed and Seldinger technique was used to place a 5 slender sheath. Catheters and wires were then used to selectively place a catheter across the subclavian, into the aortic arch and then selectively in the descending thoracic aorta and down into the abdominal aorta. Aortogram was performed. Catheter was then advanced to the level of the iliac bifurcation. A bilateral lower extremity step-off was performed. After satisfactory images, catheters and wires were removed. The sheath was removed and a TR band was placed. Angiographic interpretation: The aorta shows evidence of mild diffuse disease. The visualized portions of the renals appear patent. There is an accessory renal on the right. Lumbars visualized appear patent without significant disease. Mild dilation of the distal aorta. On the right, the common internal and external iliac appear patent. There is likely some mild disease within the external iliac although not flow-limiting. The common femoral artery appears patent without significant disease. The front appears patent, there is diffuse mild superficial femoral artery disease throughout without any evidence of high- grade stenosis visualized. The popliteal artery is patent with mild to moderate calcific disease. The takeoff of the AT is visualized and found to be severely calcified. After its takeoff there is occlusion short way down with reconstitution and runoff to just about the level of the ankle and into the foot likely of the anterior tibial. Likely peroneal also visualized at the ankle however via reconstitution as no TP trunk is obviously well-visualized. On the left, there is mild diffuse disease through the common external and internal iliac arteries. The common femoral artery appears patent without significant disease. There does appear to be some degree of calcific disease at the proximal superficial femoral artery. The profunda appears patent with mild disease throughout. There is mild disease throughout the remainder of the superficial femoral artery with visualized calcifications. No areas of high- grade stenosis identified. The popliteal artery has mild to moderate calcific disease with some narrowing distally at the infrapopliteal segment. The anterior tibial artery is visualized at its takeoff with significant calcific disease throughout. There is difficulty in visualizing the posterior tibial or peroneal vessel. At the level of the ankle there are no obvious visualized vessels.
--- NOTE | 2024-09-22 08:29 | IR ---
EXAMINATION TYPE: IR angio abdominal w runoff DATE OF EXAM: 09/22/2024 CLINICAL HISTORY: Right leg pain. TECHNIQUE: Fluoroscopy. COMPARISON: None. FINDINGS: Fluoroscopic guidance was provided during abdominal angiogram with bilateral lower extremi ty runoff procedure performed by Dr. June. A total of 102 seconds of fluoroscopic time was utilized during the procedure and 219 spot images are acquired. TOTAL DAP = 28.718 Gy x cm2. IMPRESSION: As Above. [facility], , 09/22/2024 8:26 AM
[2024-09-22 12:15] LABS: Glucose,Whole Blood 272 mg/dL (70-110)
[2024-09-22 17:11] LABS: Glucose,Whole Blood 205 mg/dL (70-110)
--- NOTE | 2024-09-22 17:29 | P.PN ---
Subjective Progress Note Date: 09/22/24 Syncope Per medical H&P, "74-year-old male was brought in because he had a fall at the time they would not show to the patient is not visible patient denies a couple episode apparently patient had altered mental status patient is almost alert oriented x 3 when I evaluated the patient patient denied any UTI symptoms patient was complaining of generalized weakness. Patient does have leukocytosis without any evidence of infection at this time patient denied any cough. Patient blood sugars are high unknown what patient takes as patient does not know what she takes. Patient was discharged on 20 units of Lantus in month of February. Patient is hyponatremic and hyperkalemic." Progress note for 09/20/2024: Patient was seen at bedside today. Labs from today showed sodium 135, potassium 4.2, chloride 103, carbon dioxide 21.5, BUN 10.1, creatinine 0.7, glucose 163, hemoglobin A1c of 9.7. Vitals temperature of 98.2, pulse rate of 96, respiratory rate 19, blood pressure 135/74, O2 sat 98% on room air. Brain CT obtained last night showed no acute intracranial abnormality. Patient denies any acute complaints at this time. Patient denies any fever, chills, dizziness,, chest pain, shortness of breath/vomiting, belly pain. Patient was noted to have very big open wound on his right big toe with signs of necrosis. 09/21/2024 Patient is seen in follow-up this morning currently sitting up at the chair with multiple consultations following including vascular surgery and infectious disease. Wound care consulted and pending at this time. Vascular surgery with plans of angiogram on 09/22/2024. Patient will be n.p.o. at midnight and will await report. Follow-up with repeat labs and continue current local wound care. Jayro wraps not recommended on lower extremities. Patient is afebrile denies chest pain or shortness of breath. Patient reports intermittent pain of the low er extremities although controlled on current regimen. 09/22/2024 Patient was seen at bedside today. Patient underwent an angiogram earlier this morning. Per operative report, on the right, the takeoff of the AT is visualized and found to be severely calcified. On the left, the popliteal artery has mild to moderate calcific disease with some narrowing distally at the infrapopliteal segment. The anterior tibial artery is visualized at its takeoff with significant calcific disease throughout. Patient reported no complaints at this time. Denies any fever, chills, chest pain, shortness of breath, nausea/vomiting. Vascular surgery plan to take the patient for debridement on Friday. WBC 16.2, hemoglobin 12.5, hematocrit 39.2, platelets 273, neutrophils 14, sodium 134, potassium 4.3, glucose 127. Review of Systems Constitutional: Denies chills, Denies fever Eyes: denies blurred vision, double vision or pain Ears, nose, mouth and throat: Denies headache, Denies sore throat Cardiovascular: Denies chest pain, Denies shortness of breath Respiratory: Denies cough Gastrointestinal: Denies abdominal pain, Denies diarrhea, Denies nausea, Denies vomiting Musculoskeletal: Denies myalgias Integumentary: Denies pruritus, Denies rash Neurological: Denies numbness, Denies weakness Psychiatric: Denies anxiety, Denies depression Endocrine: Denies fatigue, Denies weight change GENERAL: This is a 74-year-old in no apparent distress at the time of examination. Pleasant and cooperative. HEENT: Head is atraumatic, normocephalic. Pupils are equal, round, and reactive to light. Sclerae anicteric. Conjunctivae are clear. Mucus membranes of the mouth are moist. Neck is supple. RESPIRATORY: Clear to auscultation. No wheezes, rales, or rhonchi. No use of accessory muscles. Patient maintaining oxygen saturation greater than 92%. No chest wall tenderness is noted on palpation or with deep breathing. CARDIOVASCULAR: Regular rate and rhythm. S1 and S2 noted. No systolic or diastolic murmur auscultated. No JVD noted. No S3 or S4 noted. GASTROINTESTINAL: No distention noted. Abdomen soft and round. Normal active bowel sounds auscultated x 4 quadrants. No pain or tenderness noted upon palpation. INTEGUMENTARY: No cyanosis. No jaundice. No rashes noted. No cellulitis noted. EXTREMITIES: 2+ peripheral pulses. No evidence of peripheral edema. No calf tenderness noted. Wounds noted on bilateral feet wrapped with dressing. NEUROLOGIC: Cranial nerves II-XII intact. PSYCHIATRIC: Awake, alert,. Appropriate affect. Intact judgement and insight. Assessment: Fall, may be secondary to generalized weakness and dehydration Non-healing foot wounds, history of gangrene/osteomyelitis with previous toe amputation and debridement with Dr. June Leukocytosis possibly secondary to above Hypovolemic hyponatremia, resolved Hyperkalemia with slight hemolysis, resolved Type 2 diabetes mellitus Generalized weakness GI prophylaxis DVT prophylaxis Full code Plan: Patient being followed by multiple consultations including infectious disease, vascular surgery, wound care Vascular surgery performed an angiogram on 09/22/2024. Vascular surgery plan to take the patient for possible debridement on Friday. Continue with Zosyn per ID recommendation. Monitor morning CBC and CMP Wound care recommended to continue with Santyl to bilateral lower extremities. Continue IV fluids at 75 cc an hour Continue with sliding scale insulin Objective - Vital Signs Vital signs: Vital Signs Temp 97.4 F L 09/22/24 08:15 Pulse 109 H 09/22/24 09:15 Resp 22 09/22/24 08:15 BP 152/83 09/22/24 09:15 Pulse Ox 100 09/22/24 09:00 FiO2 Intake & Output 09/21/24 09/22/24 09/22/24 18:59 06:59 18:59 Intake Total 236 200 Output Total 175 Balance 61 200 Intake: IV 200 Oral 236 Output: Urine 175 Other: # Voids 1 - Labs CBC & Chem 7: 09/22/24 05:49 09/22/24 05:49 Labs: Abnormal Lab Results - Last 24 Hours (Table) 09/21/24 09/21/24 09/21/24 Range/Units 06:16 06:16 12:05 WBC 13.79 H (4.50-10.00) X 10*3/uL RBC 3.81 L (4.40-5.60) X 10*6/uL Hgb 11.6 L (13.0-17.0) g/dL Hct 36.6 L (39.6-50.0) % MCHC 31.7 L (32.0-37.0) g/dL Immature Gran # 0.08 H (0.00-0.04) X 10*3/uL Neutrophils # 10.73 H (1.80-7.70) X 10*3/uL Lymphocytes # (1.0-4.8) k/uL Monocytes # 1.45 H (0.20-1.00) X 10*3/uL Sodium 134 L (135-145) mmol/L Carbon Dioxide 21.0 L (21.6-31.8) mmol/L Anion Gap 14.00 H (4.00-12.00) mmol/L BUN 8.6 L (9.0-27.0) mg/dL Glucose 126 H (70-110) mg/dL POC Glucose (mg/dL) 289 H (70-110) mg/dL Calcium 8.5 L (8.7-10.3) mg/dL Albumin 3.1 L (3.8-4.9) g/dL Globulin 3.4 H (1.6-3.3) g/dL Albumin/Globulin Ratio 0.91 L (1.60-3.17) Ratio 09/21/24 09/21/24 09/22/24 Range/Units 17:15 20:31 05:49 WBC 16.2 H (4.50-10.00) X 10*3/uL RBC 3.94 L (4.40-5.60) X 10*6/uL Hgb 12.5 L (13.0-17.0) g/dL Hct (39.6-50.0) % MCHC (32.0-37.0) g/dL Immature Gran # (0.00-0.04) X 10*3/uL Neutrophils # 14.0 H (1.80-7.70) X 10*3/uL Lymphocytes # 0.9 L (1.0-4.8) k/uL Monocytes # (0.20-1.00) X 10*3/uL Sodium (135-145) mmol/L Carbon Dioxide (21.6-31.8) mmol/L Anion Gap (4.00-12.00) mmol/L BUN (9.0-27.0) mg/dL Glucose (70-110) mg/dL POC Glucose (mg/dL) 160 H 197 H (70-110) mg/dL Calcium (8.7-10.3) mg/dL Albumin (3.8-4.9) g/dL Globulin (1.6-3.3) g/dL Albumin/Globulin Ratio (1.60-3.17) Ratio 09/22/24 09/22/24 Range/Units 05:49 06:31 WBC (4.50-10.00) X 10*3/uL RBC (4.40-5.60) X 10*6/uL Hgb (13.0-17.0) g/dL Hct (39.6-50.0) % MCHC (32.0-37.0) g/dL Immature Gran # (0.00-0.04) X 10*3/uL Neutrophils # (1.80-7.70) X 10*3/uL Lymphocytes # (1.0-4.8) k/uL Monocytes # (0.20-1.00) X 10*3/uL Sodium 134 L (135-145) mmol/L Carbon Dioxide 19 L (21.6-31.8) mmol/L Anion Gap (4.00-12.00) mmol/L BUN (9.0-27.0) mg/dL Glucose 127 H (70-110) mg/dL POC Glucose (mg/dL) 129 H (70-110) mg/dL Calcium (8.7-10.3) mg/dL Albumin (3.8-4.9) g/dL Globulin (1.6-3.3) g/dL Albumin/Globulin Ratio (1.60-3.17) Ratio Microbiology - Last 24 Hours (Table) 09/20/24 00:15 Gram Stain - Final Foot - Left Wound Culture - Final Enterobacter cloacae Complex 09/19/24 21:08 Blood Culture - Preliminary Blood
[2024-09-22 20:13] LABS: Glucose,Whole Blood 199 mg/dL (70-110)
[2024-09-23 05:35] LABS: Glucose,Whole Blood 125 mg/dL (70-110)
[2024-09-23 09:12] LABS: HCT 34.5 % (39.6-50.0); HGB 11.3 g/dL (13.0-17.0); MCH 31.1 pg (27.0-32.0); MCHC 32.8 g/dL (32.0-37.0); Mean Platelet Volume 11.9 FL (9.5-12.2); NRBC Per 100 WBC 0 X 10*3/uL (0.00-0.01); Platelet Count 260 X 10*3/uL (140-440); RBC 3.63 X 10*6/uL (4.40-5.60); RDW 11.8 % (11.5-14.5); WBC 17.33 X 10*3/uL (4.50-10.00)
[2024-09-23 09:47] LABS: ALT 19 U/L (10-49); AST 31 U/L (14-35); Albumin 2.9 g/dL (3.8-4.9); Albumin/Globulin Ratio 0.83 Ratio (1.60-3.17); Alkaline Phosphatase 98 U/L (41-126); BUN/Creat Ratio 21.14 Ratio (12.00-20.00); Blood Urea Nitrogen 14.8 mg/dL (9.0-27.0); Calcium 8.4 mg/dL (8.7-10.3); Carbon Dioxide 20.4 mmol/L (21.6-31.8); Chloride 102 mmol/L (96-109); Globulin 3.5 g/dL (1.6-3.3); Glucose 130 mg/dL (70-110); Sodium 137 mmol/L (135-145); Total Bilirubin 0.6 mg/dL (0.3-1.2); Total Protein 6.4 g/dL (6.2-8.2)
[2024-09-23 10:14] LABS: Basophils # (A) 0.04 X 10*3/uL (0.00-0.10); Basophils % (A) 0.2 %; Eosinophils # (A) 0.01 X 10*3/uL (0.04-0.35); Eosinophils % (A) 0.1 %; Lymphocytes # (A) 1.24 X 10*3/uL (0.90-5.00); Lymphocytes % (A) 7.2 %; Monocytes # (A) 1.66 X 10*3/uL (0.20-1.00); Monocytes % (A) 9.6 %; Neutrophils # (A) 14.28 X 10*3/uL (1.80-7.70); Neutrophils % (A) 82.3 %
--- NOTE | 2024-09-23 12:20 | P.PN ---
Subjective Progress Note Date: 09/23/24 Principal diagnosis: Syncope Syncope Per medical H&P, "74-year-old male was brought in because he had a fall at the time they would not show to the patient is not visible patient denies a couple episode apparently patient had altered mental status patient is almost alert oriented x 3 when I evaluated the patient patient denied any UTI symptoms patient was complaining of generalized weakness. Patient does have leukocytosis without any evidence of infection at this time patient denied any cough. Patient blood sugars are high unknown what patient takes as patient does not know what she takes. Patient was discharged on 20 units of Lantus in month of February. Patient is hyponatremic and hyperkalemic." Progress note for 09/20/2024: Patient was seen at bedside today. Labs from today showed sodium 135, potassium 4.2, chloride 103, carbon dioxide 21.5, BUN 10.1, creatinine 0.7, glucose 163, hemoglobin A1c of 9.7. Vitals temperature of 98.2, pulse rate of 96, respiratory rate 19, blood pressure 135/74, O2 sat 98% on room air. Brain CT obtained last night showed no acute intracranial abnormality. Patient denies any acute complaints at this time. Patient denies any fever, chills, dizziness,, chest pain, shortness of breath/vomiting, belly pain. Patient was noted to have very big open wound on his right big toe with signs of necrosis. 09/21/2024 Patient is seen in follow-up this morning currently sitting up at the chair with multiple consultations following including vascular surgery and infectious disease. Wound care consulted and pending at this time. Vascular surgery with plans of angiogram on 09/22/2024. Patient will be n.p.o. at midnight and will await report. Follow-up with repeat labs and continue current local wound care. Jayro wraps not recommended on lower extremities. Patient is afebrile denies chest pain or shortness of breath. Patient reports intermittent pain of the lower extremities although controlled on current regimen. 09/22/2024 Patient was seen at bedside today. Patient underwent an angiogram earlier this morning. Per operative report, on the right, the takeoff of the AT is visualized and found to be severely calcified. On the left, the popliteal artery has mild to moderate calcific disease with some narrowing distally at the infrapopliteal segment. The anterior tibial artery is visualized at its takeoff with significant calcific disease throughout. Patient reported no complaints at this time. Denies any fever, chills, chest pain, shortness of breath, nausea/vomiting. Vascular surgery plan to take the patient for debridement on Friday. WBC 16.2, hemoglobin 12.5, hematocrit 39.2, platelets 273, neutrophils 14, sodium 134, potassium 4.3, glucose 127. 09/23/2024 Patient was seen at bedside today. WBC 17.33, hemoglobin 11.3, hematocrit 34.5, platelet 260, sodium 137, potassium 4.0, BUN 14.8, creatinine 0.7, glucose 130. Vitals temperature 97.9, pulse rate of 98, respiratory rate 18, blood pressure 109/65, O2 sat 99% on room air. Patient reports no acute complaints at this time. Vascular surgery plan to take patient for an angiogram and possibly amputation of the right big toe on Friday. Review of Systems Constitutional: Denies chills, Denies fever Eyes: denies blurred vision, double vision or pain Ears, nose, mouth and throat: Denies headache, Denies sore throat Cardiovascular: Denies chest pain, Denies shortness of breath Respiratory: Denies cough Gastrointestinal: Denies abdominal pain, Denies diarrhea, Denies nausea, Denies vomiting Musculoskeletal: Denies myalgias Integumentary: Denies pruritus, Denies rash Neurological: Denies numbness, Denies weakness Psychiatric: Denies anxiety, Denies depression Endocrine: Denies fatigue, Denies weight change GENERAL: This is a 74-year-old in no apparent distress at the time of examination. Pleasant and cooperative. HEENT: Head is atraumatic, normocephalic. Pupils are equal, round, and reactive to light. Sclerae anicteric. Conjunctivae are clear. Mucus membranes of the mouth are moist. Neck is supple. RESPIRATORY: Clear to auscultation. No wheezes, rales, or rhonchi. No use of accessory muscles. Patient maintaining oxygen saturation greater than 92%. No chest wall tenderness is noted on palpation or with deep breathing. CARDIOVASCULAR: Regular rate and rhythm. S1 and S2 noted. No systolic or diastolic murmur auscultated. No JVD noted. No S3 or S4 noted. GASTROINTESTINAL: No distention noted. Abdomen soft and round. Normal active bowel sounds auscultated x 4 quadrants. No pain or tenderness noted upon palpation. INTEGUMENTARY: No cyanosis. No jaundice. No rashes noted. No cellulitis noted. EXTREMITIES: 2+ peripheral pulses. No evidence of peripheral edema. No calf tenderness noted. Wounds noted on bilateral feet wrapped with dressing. NEUROLOGIC: Cranial nerves II-XII intact. PSYCHIATRIC: Awake, alert,. Appropriate affect. Intact judgement and insight. Assessment: Fall, may be secondary to generalized weakness and dehydration Non-healing foot wounds, history of gangrene/osteomyelitis with previous toe amputation and debridement with Dr. June Leukocytosis possibly secondary to above Hypovolemic hyponatremia, resolved Hyperkalemia with slight hemolysis, resolved Type 2 diabetes mellitus Generalized weakness GI prophylaxis DVT prophylaxis Full code Plan: Patient being followed by multiple consultations including infectious disease, vascular surgery, wound care Vascular surgery performed an angiogram on 09/22/2024. Vascular surgery plan to take the patient for possible amputation of the right big toe on Friday. Continue with Zosyn per ID recommendation. Monitor morning CBC and CMP Wound care recommended to continue with Santyl to bilateral lower extremities. Continue IV fluids at 75 cc an hour Continue with sliding scale insulin Objective - Vital Signs Vital signs: Vital Signs Temp 97.9 F 09/23/24 08:00 Pulse 98 09/23/24 08:00 Resp 18 09/23/24 08:00 BP 109/65 09/23/24 08:00 Pulse Ox 99 09/23/24 08:00 FiO2 Intake & Output 09/22/24 09/23/24 09/23/24 18:59 06:59 18:59 Intake Total 200 Output Total 200 Balance 0 Intake: IV 200 Output: Urine 200 Other: Voiding Method Urinal Incontinent # Voids 3 - Labs CBC & Chem 7: 09/23/24 02:59 09/23/24 02:59 Labs: Abnormal Lab Results - Last 24 Hours (Table) 09/22/24 09/22/24 09/22/24 Range/Units 12:13 17:10 20:12 WBC (4.50-10.00) X 10*3/uL RBC (4.40-5.60) X 10*6/uL Hgb (13.0-17.0) g/dL Hct (39.6-50.0) % Carbon Dioxide (21.6-31.8) mmol/L Anion Gap (4.00-12.00) mmol/L BUN/Creatinine Ratio (12.00-20.00) Ratio Glucose (70-110) mg/dL POC Glucose (mg/dL) 272 H 205 H 199 H (70-110) mg/dL Calcium (8.7-10.3) mg/dL Albumin (3.8-4.9) g/dL Globulin (1.6-3.3) g/dL Albumin/Globulin Ratio (1.60-3.17) Ratio 09/23/24 09/23/24 09/23/24 Range/Units 02:59 02:59 05:29 WBC 17.33 H (4.50-10.00) X 10*3/uL RBC 3.63 L (4.40-5.60) X 10*6/uL Hgb 11.3 L (13.0-17.0) g/dL Hct 34.5 L (39.6-50.0) % Carbon Dioxide 20.4 L (21.6-31.8) mmol/L Anion Gap 14.60 H (4.00-12.00) mmol/L BUN/Creatinine Ratio 21.14 H (12.00-20.00) Ratio Glucose 130 H (70-110) mg/dL POC Glucose (mg/dL) 125 H (70-110) mg/dL Calcium 8.4 L (8.7-10.3) mg/dL Albumin 2.9 L (3.8-4.9) g/dL Globulin 3.5 H (1.6-3.3) g/dL Albumin/Globulin Ratio 0.83 L (1.60-3.17) Ratio Microbiology - Last 24 Hours (Table) 09/19/24 21:08 Blood Culture - Preliminary Blood 09/20/24 00:15 Gram Stain - Final Foot - Left Wound Culture - Final Enterobacter cloacae Complex
[2024-09-23 12:27] LABS: Glucose,Whole Blood 153 mg/dL (70-110)
--- NOTE | 2024-09-23 14:16 | P.PN ---
Subjective Progress Note Date: 09/23/24 Principal diagnosis: Cellulitis Patient is seen and examined today as a follow-up. States no acute changes through the night. Right wrist access without any hematoma. No bleeding noted. Objective - Vital Signs Vital signs: Vital Signs Temp 97.6 F 09/23/24 13:59 Pulse 88 09/23/24 13:59 Resp 20 09/23/24 13:59 BP 118/67 09/23/24 13:59 Pulse Ox 93 L 09/23/24 13:59 FiO2 Intake & Output 09/22/24 09/23/24 09/23/24 18:59 06:59 18:59 Intake Total 200 Output Total 200 Balance 0 Intake: IV 200 Output: Urine 200 Other: Voiding Method Urinal Incontinent # Voids 3 - Exam General appearance: The patient is alert, oriented, appears in no acute distress. HET: Head is normocephalic and atraumatic. Pupils are equal and reactive. Neck: Supple. Heart: Regular. Lungs: Equal expansion, normal respiratory effort. Abdomen: Soft, nontender, nondistended. Extremities: Right wrist access site without any hematoma or bleeding. Right foot with erythema, scabbed wound to the dorsal aspect of foot. Open wound with nonviable tissue to the tendon along the great toe. Left foot with third and f ourth toe amputation, surgical site with small open wound without any notable drainage. No surrounding erythema. Bilateral feet warm to the touch with good capillary refill. Nonpalpable PT or DP pulses. Neurological: Patient has bilateral upper extremity tremors. He is alert and oriented. - Labs CBC & Chem 7: 09/23/24 02:59 09/23/24 02:59 Labs: Abnormal Lab Results - Last 24 Hours (Table) 09/22/24 09/22/24 09/23/24 Range/Units 17:10 20:12 02:59 WBC 17.33 H (4.50-10.00) X 10*3/uL RBC 3.63 L (4.40-5.60) X 10*6/uL Hgb 11.3 L (13.0-17.0) g/dL Hct 34.5 L (39.6-50.0) % Immature Gran # 0.10 H (0.00-0.04) X 10*3/uL Neutrophils # 14.28 H (1.80-7.70) X 10*3/uL Monocytes # 1.66 H (0.20-1.00) X 10*3/uL Eosinophils # 0.01 L (0.04-0.35) X 10*3/uL Carbon Dioxide (21.6-31.8) mmol/L Anion Gap (4.00-12.00) mmol/L BUN/Creatinine Ratio (12.00-20.00) Ratio Glucose (70-110) mg/dL POC Glucose (mg/dL) 205 H 199 H (70-110) mg/dL Calcium (8.7-10.3) mg/dL Albumin (3.8-4.9) g/dL Globulin (1.6-3.3) g/dL Albumin/Globulin Ratio (1.60-3.17) Ratio 09/23/24 09/23/24 09/23/24 Range/Units 02:59 05:29 12:25 WBC (4.50-10.00) X 10*3/uL RBC (4.40-5.60) X 10*6/uL Hgb (13.0-17.0) g/dL Hct (39.6-50.0) % Immature Gran # (0.00-0.04) X 10*3/uL Neutrophils # (1.80-7.70) X 10*3/uL Monocytes # (0.20-1.00) X 10*3/uL Eosinophils # (0.04-0.35) X 10*3/uL Carbon Dioxide 20.4 L (21.6-31.8) mmol/L Anion Gap 14.60 H (4.00-12.00) mmol/L BUN/Creatinine Ratio 21.14 H (12.00-20.00) Ratio Glucose 130 H (70-110) mg/dL POC Glucose (mg/dL) 125 H 153 H (70-110) mg/dL Calcium 8.4 L (8.7-10.3) mg/dL Albumin 2.9 L (3.8-4.9) g/dL Globulin 3.5 H (1.6-3.3) g/dL Albumin/Globulin Ratio 0.83 L (1.60-3.17) Ratio Microbiology - Last 24 Hours (Table) 09/19/24 21:08 Blood Culture - Preliminary Blood Assessment and Plan Assessment: 1. Bilateral lower extremity diabetic wounds 2. Nonhealing right foot wound 3. Right anterior tibial occlusion with reconstitution 4. Right foot cellulitis 5. Diabetes mellitus 6. History of left toe infection status post amputation 7. Smoker Plan: 1. CTA with runoff bilateral lower extremities ordered and reviewed 2. Continue local wound care per recommendations from wound clinic 3. Continue antibiotics per recommendations from infectious disease 4. N.p.o. after midnight 5. Hold Xarelto 6. Plan for right lower extremity angiogram tomorrow with possible intervention Thank you for this consultation, we will continue to follow. The impression and plan of care has been dictated as directed. Dr. June I performed a history and examination of this patient, discussed the same with the dictator. I agree with the dictator's note ,documented as a scribe. Any additional findings or plans will be noted.
--- NOTE | 2024-09-23 15:05 | P.PN ---
Subjective Progress Note Date: 09/22/24 Principal diagnosis: Reason for follow-up is bilateral diabetic foot ulcer cellulitis Patient is a 74-year-old male with a past medical history significant for diabetes mellitus GI bleed diabetic foot ulcer in this patient did have a left fourth and fifth toe amputation and debridement with a chronic nonhealing wound to the left foot admitted to hospital with a syncopal episode and patient also noticed to have a necrotic wound to the right big toe. On today's evaluation that is 09/22/2024,the patient denies any fever or any chills, patient is breathing comfortably on room air, the patient denies chest pain shortness of breath and no significant cough, patient denies abdominal pain, no nausea vomiting or diarrhea. Denies any worsening pain to the bilateral foot wound area. Patient white count slightly up to 16.2, creatinine 0.74, local culture growing gram-negative Objective - Vital Signs Vital signs: Vital Signs Temp 97.4 F L 09/22/24 08:15 Pulse 109 H 09/22/24 09:15 Resp 22 09/22/24 08:15 BP 152/83 09/22/24 09:15 Pulse Ox 100 09/22/24 09:00 FiO2 Intake & Output 09/21/24 09/22/24 09/22/24 18:59 06:59 18:59 Intake Total 236 200 Output Total 175 200 Balance 61 0 Intake: IV 200 Oral 236 Output: Urine 175 200 Other: # Voids 1 - Exam GENERAL DESCRIPTION: An elderly male lying in bed in no distress RESPIRATORY SYSTEM: Unlabored breathing , decreased breath sounds at bases HEART: S1 S2 regular rate and rhythm , ABDOMEN: Soft , no tenderness EXTREMITIES: Bilateral feet were currently dressed - Labs CBC & Chem 7: 09/23/24 02:59 09/23/24 02:59 Labs: Abnormal Lab Results - Last 24 Hours (Table) 09/21/24 09/21/24 09/21/24 Range/Units 06:16 12:05 17:15 WBC (3.8-10.6) k/uL RBC (4.30-5.90) m/uL Hgb (13.0-17.5) gm/dL Neutrophils # (1.3-7.7) k/uL Lymphocytes # (1.0-4.8) k/uL Sodium 134 L (135-145) mmol/L Carbon Dioxide 21.0 L (21.6-31.8) mmol/L Anion Gap 14.00 H (4.00-12.00) mmol/L BUN 8.6 L (9.0-27.0) mg/dL Glucose 126 H (70-110) mg/dL POC Glucose (mg/dL) 289 H 160 H (70-110) mg/dL Calcium 8.5 L (8.7-10.3) mg/dL Albumin 3.1 L (3.8-4.9) g/dL Globulin 3.4 H (1.6-3.3) g/dL Albumin/Globulin Ratio 0.91 L (1.60-3.17) Ratio 09/21/24 09/22/24 09/22/24 Range/Units 20:31 05:49 05:49 WBC 16.2 H (3.8-10.6) k/uL RBC 3.94 L (4.30-5.90) m/uL Hgb 12.5 L (13.0-17.5) gm/dL Neutrophils # 14.0 H (1.3-7.7) k/uL Lymphocytes # 0.9 L (1.0-4.8) k/uL Sodium 134 L (135-145) mmol/L Carbon Dioxide 19 L (21.6-31.8) mmol/L Anion Gap (4.00-12.00) mmol/L BUN (9.0-27.0) mg/dL Glucose 127 H (70-110) mg/dL POC Glucose (mg/dL) 197 H (70-110) mg/dL Calcium (8.7-10.3) mg/dL Albumin (3.8-4.9) g/dL Globulin (1.6-3.3) g/dL Albumin/Globulin Ratio (1.60-3.17) Ratio 09/22/24 Range/Units 06:31 WBC (3.8-10.6) k/uL RBC (4.30-5.90) m/uL Hgb (13.0-17.5) gm/dL Neutrophils # (1.3-7.7) k/uL Lymphocytes # (1.0-4.8) k/uL Sodium (135-145) mmol/L Carbon Dioxide (21.6-31.8) mmol/L Anion Gap (4.00-12.00) mmol/L BUN (9.0-27.0) mg/dL Glucose (70-110) mg/dL POC Glucose (mg/dL) 129 H (70-110) mg/dL Calcium (8.7-10.3) mg/dL Albumin (3.8-4.9) g/dL Globulin (1.6-3.3) g/dL Albumin/Globulin Ratio (1.60-3.17) Ratio Microbiology - Last 24 Hours (Table) 09/20/24 00:15 Gram Stain - Final Foot - Left Wound Culture - Final Enterobacter cloacae Complex 09/19/24 21:08 Blood Culture - Preliminary Blood Assessment and Plan (1) Diabetic gangrene Current Visit: No Status: Acute Code(s): E11.52 - TYPE 2 DIABETES W DIABETIC PERIPHERAL ANGIOPATHY W GANGRENE SNOMED Code(s): 920211434 (2) Diabetic infection of left foot Current Visit: No Status: Acute Code(s): E11.628 - TYPE 2 DIABETES MELLITUS WITH OTHER SKIN COMPLICATIONS; L08.9 - LOCAL INFECTION OF THE SKIN AND SUBCUTANEOUS TISSUE, UNSP SNOMED Code(s): 682920504 (3) Non-pressure chronic ulcer of other part of left foot with fat layer exposed Current Visit: No Status: Acute Code(s): L97.522 - NON-PRS CHRONIC ULCER OTH PRT LEFT FOOT W FAT LAYER EXPOSED SNOMED Code(s): 22011604640939212 Plan: 1patient with right big toe diabetic foot with a necrotic wound and evidence of secondary cellulitis will need to cover for the polymicrobial mariano associated with diabetic foot infection 2-patient also have a nonhealing wound on the left foot lateral border postdilatation of the left fourth and fifth toe but no significant purulent drainage was noticed from the site 3- vascular surgery has evaluated the patient and has ordered an angiogram followed by possible debridement discussed with the surgeon to obtain culture at the time of debridement 4-local culture currently growing Enterobacter with sensitivities pending patient has been switched over to Zosyn for better gram-negative coverage Dictation was produced using [employer] dictation software. please excuse any grammatical, word or spelling errors. Time with Patient: Less than 30
--- NOTE | 2024-09-23 15:05 | P.PN ---
Subjective Progress Note Date: 09/23/24 Principal diagnosis: Reason for follow-up is bilateral diabetic foot ulcer cellulitis Patient is a 74-year-old male with a past medical history significant for diabetes mellitus GI bleed diabetic foot ulcer in this patient did have a left fourth and fifth toe amputation and debridement with a chronic nonhealing wound to the left foot admitted to hospital with a syncopal episode and patient also noticed to have a necrotic wound to the right big toe. On today's evaluation that is 09/23/2024,the patient remains to be afebrile, patient is on room air not requiring supplemental oxygen and denies any shortness of breath no chest pain or cough.Patient denies having any nausea or vomiting, no abdominal pain and no diarrhea has been reported patient denies pain to bilateral feet wound area. Patient white count 17.33, creatinine 0.7, culture with Enterobacter Objective - Vital Signs Vital signs: Vital Signs Temp 97.6 F 09/23/24 13:59 Pulse 88 09/23/24 13:59 Resp 20 09/23/24 13:59 BP 118/67 09/23/24 13:59 Pulse Ox 93 L 09/23/24 13:59 FiO2 Intake & Output 09/22/24 09/23/24 09/23/24 18:59 06:59 18:59 Intake Total 200 Output Total 200 Balance 0 Intake: IV 200 Output: Urine 200 Other: Voiding Method Urinal Incontinent # Voids 3 - Exam GENERAL DESCRIPTION: An elderly male lying in bed in no distress RESPIRATORY SYSTEM: Unlabored breathing , decreased breath sounds at bases HEART: S1 S2 regular rate and rhythm , ABDOMEN: Soft , no tenderness EXTREMITIES: Bilateral feet were currently dressed - Labs CBC & Chem 7: 09/23/24 02:59 09/23/24 02:59 Labs: Abnormal Lab Results - Last 24 Hours (Table) 09/22/24 09/22/24 09/23/24 Range/Units 17:10 20:12 02:59 WBC 17.33 H (4.50-10.00) X 10*3/uL RBC 3.63 L (4.40-5.60) X 10*6/uL Hgb 11.3 L (13.0-17.0) g/dL Hct 34.5 L (39.6-50.0) % Immature Gran # 0.10 H (0.00-0.04) X 10*3/uL Neutrophils # 14.28 H (1.80-7.70) X 10*3/uL Monocytes # 1.66 H (0.20-1.00) X 10*3/uL Eosinophils # 0.01 L (0.04-0.35) X 10*3/uL Carbon Dioxide (21.6-31.8) mmol/L Anion Gap (4.00-12.00) mmol/L BUN/Creatinine Ratio (12.00-20.00) Ratio Glucose (70-110) mg/dL POC Glucose (mg/dL) 205 H 199 H (70-110) mg/dL Calcium (8.7-10.3) mg/dL Albumin (3.8-4.9) g/dL Globulin (1.6-3.3) g/dL Albumin/Globulin Ratio (1.60-3.17) Ratio 09/23/24 09/23/24 09/23/24 Range/Units 02:59 05:29 12:25 WBC (4.50-10.00) X 10*3/uL RBC (4.40-5.60) X 10*6/uL Hgb (13.0-17.0) g/dL Hct (39.6-50.0) % Immature Gran # (0.00-0.04) X 10*3/uL Neutrophils # (1.80-7.70) X 10*3/uL Monocytes # (0.20-1.00) X 10*3/uL Eosinophils # (0.04-0.35) X 10*3/uL Carbon Dioxide 20.4 L (21.6-31.8) mmol/L Anion Gap 14.60 H (4.00-12.00) mmol/L BUN/Creatinine Ratio 21.14 H (12.00-20.00) Ratio Glucose 130 H (70-110) mg/dL POC Glucose (mg/dL) 125 H 153 H (70-110) mg/dL Calcium 8.4 L (8.7-10.3) mg/dL Albumin 2.9 L (3.8-4.9) g/dL Globulin 3.5 H (1.6-3.3) g/dL Albumin/Globulin Ratio 0.83 L (1.60-3.17) Ratio Microbiology - Last 24 Hours (Table) 09/19/24 21:08 Blood Culture - Preliminary Blood Assessment and Plan (1) Diabetic gangrene Current Visit: No Status: Acute Code(s): E11.52 - TYPE 2 DIABETES W DIABETIC PERIPHERAL ANGIOPATHY W GANGRENE SNOMED Code(s): 470981758 (2) Diabetic infection of left foot Current Visit: No Status: Acute Code(s): E11.628 - TYPE 2 DIABETES MELLITUS WITH OTHER SKIN COMPLICATIONS; L08.9 - LOCAL INFECTION OF THE SKIN AND SUBCUTANEOUS TISSUE, UNSP SNOMED Code(s): 447185101 (3) Non-pressure chronic ulcer of other part of left foot with fat layer exposed Current Visit: No Status: Acute Code(s): L97.522 - NON-PRS CHRONIC ULCER OTH PRT LEFT FOOT W FAT LAYER EXPOSED SNOMED Code(s): 56962614896372827 Plan: 1patient with right big toe diabetic foot with a necrotic wound and evidence of secondary cellulitis will need to cover for the polymicrobial mariano associated with diabetic foot infection 2-patient also have a nonhealing wound on the left foot lateral border postdilatation of the left fourth and fifth toe but no significant purulent drainage was noticed from the site 3- vascular surgery has evaluated the patient and has ordered an angiogram followed by possible debridement discussed with the surgeon to obtain culture at the time of debridement 4-local culture has been finalized with the Enterobacter that is sensitive to Zosyn to continue patient currently waiting for surgical intervention tomorrow that should determine the depth of infection and type of antibiotics needed on discharge can be IV Dictation was produced using [email or web address] dictation software. please excuse any grammatical, word or spelling errors. Time with Patient: Less than 30
[2024-09-23 17:36] LABS: Glucose,Whole Blood 165 mg/dL (70-110)
[2024-09-23 20:12] LABS: Glucose,Whole Blood 185 mg/dL (70-110)
[2024-09-24 05:50] LABS: Glucose,Whole Blood 140 mg/dL (70-110)
[2024-09-24 08:40] LABS: ALT 21 U/L (4-49); AST 32 U/L (17-59); African American GFR (CKD) >90 (>60 ml/min/1.73 sqM); Albumin 3.1 g/dL (3.5-5.0); Albumin/Globulin Ratio 0.8; Alkaline Phosphatase 119 U/L (38-126); Anion Gap 16 mmol/L; Blood Urea Nitrogen 20 mg/dL (9-20); Calcium 8.9 mg/dL (8.4-10.2); Carbon Dioxide 18 mmol/L (22-30); Chloride 105 mmol/L (98-107); Globulin 3.7 g/dL; Glucose 114 mg/dL (74-99); Non-African American GFR(CKD) 89 (>60 ml/min/1.73 sqM); Potassium 4.1 mmol/L (3.5-5.1); Sodium 139 mmol/L (137-145); Total Bilirubin 0.7 mg/dL (0.2-1.3); Total Protein 6.8 g/dL (6.3-8.2)
[2024-09-24] MEDS: MIDAZOLAM 2 MG/2 ML VIAL IVP ONE ×2 (08:42→09:39)
[2024-09-24] MEDS: fentaNYL (PF) 50 MCG/ML 2 ML AMP IVP ONE ×4 (08:42→09:46)
[2024-09-24] MEDS: LIDOCAINE 1% INJ 10MG/ML (20 ML MDV) SQ ONE ×2 (08:48→08:49)
[2024-09-24] MEDS: SODIUM CHLORIDE 0.9% 500 ML 500 ML IV ONE (09:00)
[2024-09-24] MEDS: HEPARIN SODIUM 1,000 UN/ML (10ML VL) IVP ONE (09:12)
[2024-09-24] MEDS: NITROGLYCERIN 1000MCG/10ML SYRINGE INTRAARTER ONE ×2 (09:37→09:55)
[2024-09-24] MEDS: IOPAMIDOL-370 100ML BTL INJ ONE (10:04)
--- NOTE | 2024-09-24 10:41 | IR ---
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 COMPARISON: None. FINDINGS: Fluoroscopic guidance was provided during lower extremity angiogram with angioplasty proce dure performed by Dr. June. A total of 17.1 per minute of fluoroscopic time was utilized during the procedure and 884 spot images was acquired. TOTAL DAP = 30.3 Gy x cm2. IMPRESSION: As Above. [facility], , 09/24/2024 10:39 AM
[2024-09-24 11:00] LABS: Basophils # (A) 0.05 X 10*3/uL (0.00-0.10); Basophils % (A) 0.3 %; Eosinophils # (A) 0.16 X 10*3/uL (0.04-0.35); Eosinophils % (A) 0.8 %; HCT 34.8 % (39.6-50.0); HGB 10.7 g/dL (13.0-17.0); Lymphocytes # (A) 1.65 X 10*3/uL (0.90-5.00); Lymphocytes % (A) 8.6 %; MCH 30.5 pg (27.0-32.0); MCHC 30.7 g/dL (32.0-37.0); MCV 99.1 FL (80.0-97.0); Mean Platelet Volume 11.7 FL (9.5-12.2); Monocytes # (A) 1.72 X 10*3/uL (0.20-1.00); Monocytes % (A) 8.9 %; NRBC Per 100 WBC 0 X 10*3/uL (0.00-0.01); Neutrophils # (A) 15.51 X 10*3/uL (1.80-7.70); Neutrophils % (A) 80.6 %; Platelet Count 306 X 10*3/uL (140-440); RBC 3.51 X 10*6/uL (4.40-5.60); WBC 19.24 X 10*3/uL (4.50-10.00)
[2024-09-24 12:04] LABS: Glucose,Whole Blood 116 mg/dL (70-110)
--- NOTE | 2024-09-24 14:44 | P.PN ---
Subjective Progress Note Date: 09/24/24 Principal diagnosis: Syncope Syncope Per medical H&P, "74-year-old male was brought in because he had a fall at the time they would not show to the patient is not visible patient denies a couple episode apparently patient had altered mental status patient is almost alert oriented x 3 when I evaluated the patient patient denied any UTI symptoms patient was complaining of generalized weakness. Patient does have leukocytosis without any evidence of infection at this time patient denied any cough. Patient blood sugars are high unknown what patient takes as patient does not know what she takes. Patient was discharged on 20 units of Lantus in month of February. Patient is hyponatremic and hyperkalemic." Progress note for 09/20/2024: Patient was seen at bedside today. Labs from today showed sodium 135, potassium 4.2, chloride 103, carbon dioxide 21.5, BUN 10.1, creatinine 0.7, glucose 163, hemoglobin A1c of 9.7. Vitals temperature of 98.2, pulse rate of 96, respiratory rate 19, blood pressure 135/74, O2 sat 98% on room air. Brain CT obtained last night showed no acute intracranial abnormality. Patient denies any acute complaints at this time. Patient denies any fever, chills, dizziness,, chest pain, shortness of breath/vomiting, belly pain. Patient was noted to have very big open wound on his right big toe with signs of necrosis. 09/21/2024 Patient is seen in follow-up this morning currently sitting up at the chair with multiple consultations following including vascular surgery and infectious disease. Wound care consulted and pending at this time. Vascular surgery with plans of angiogram on 09/22/2024. Patient will be n.p.o. at midnight and will await report. Follow-up with repeat labs and continue current local wound care. Jayro wraps not recommended on lower extremities. Patient is afebrile denies chest pain or shortness of breath. Patient reports intermittent pain of the lower extremities although controlled on current regimen. 09/22/2024 Patient was seen at bedside today. Patient underwent an angiogram earlier this morning. Per operative report, on the right, the takeoff of the AT is visualized and found to be severely calcified. On the left, the popliteal artery has mild to moderate calcific disease with some narrowing distally at the infrapopliteal segment. The anterior tibial artery is visualized at its takeoff with significant calcific disease throughout. Patient reported no complaints at this time. Denies any fever, chills, chest pain, shortness of breath, nausea/vomiting. Vascular surgery plan to take the patient for debridement on Friday. WBC 16.2, hemoglobin 12.5, hematocrit 39.2, platelets 273, neutrophils 14, sodium 134, potassium 4.3, glucose 127. 09/23/2024 Patient was seen at bedside today. WBC 17.33, hemoglobin 11.3, hematocrit 34.5, platelet 260, sodium 137, potassium 4.0, BUN 14.8, creatinine 0.7, glucose 130. Vitals temperature 97.9, pulse rate of 98, respiratory rate 18, blood pressure 109/65, O2 sat 99% on room air. Patient reports no acute complaints at this time. Vascular surgery plan to take patient for an angiogram and possibly amputation of the right big toe on Friday. 09/24/2024 Patient was seen at bedside today. Patient underwent an angiogram of right lower extremity this morning. Reports no complaints at this time. WBC 19.24, hemoglobin 10.7, hematocrit 34.8, platelet 306. BMP showed sodium 139, potassium 4.1, chloride 105, carbon dioxide 18, BUN 20, creatinine 0.77, glucose 114. Left foot wound culture showed positive for Enterobacter cloacae which is sensitive to the Zosyn patient is currently receiving. Review of Systems Constitutional: Denies chills, Denies fever Eyes: denies blurred vision, double vision or pain Ears, nose, mouth and throat: Denies headache, Denies sore throat Cardiovascular: Denies chest pain, Denies shortness of breath Respiratory: Denies cough Gastrointestinal: Denies abdominal pain, Denies diarrhea, Denies nausea, Denies vomiting Musculoskeletal: Denies myalgias Integumentary: Denies pruritus, Denies rash Neurological: Denies numbness, Denies weakness Psychiatric: Denies anxiety, Denies depression Endocrine: Denies fatigue, Denies weight change GENERAL: This is a 74-year-old in no apparent distress at the time of examination. Pleasant and cooperative. HEENT: Head is atraumatic, normocephalic. Pupils are equal, round, and reactive to light. Sclerae anicteric. Conjunctivae are clear. Mucus membranes of the mouth are moist. Neck is supple. RESPIRATORY: Clear to auscultation. No wheezes, rales, or rhonchi. No use of accessory muscles. Patient maintaining oxygen saturation greater than 92%. No c hest wall tenderness is noted on palpation or with deep breathing. CARDIOVASCULAR: Regular rate and rhythm. S1 and S2 noted. No systolic or diastolic murmur auscultated. No JVD noted. No S3 or S4 noted. GASTROINTESTINAL: No distention noted. Abdomen soft and round. Normal active bowel sounds auscultated x 4 quadrants. No pain or tenderness noted upon palpation. INTEGUMENTARY: No cyanosis. No jaundice. No rashes noted. No cellulitis noted. EXTREMITIES: 2+ peripheral pulses. No evidence of peripheral edema. No calf tenderness noted. Wounds noted on bilateral feet wrapped with dressing. NEUROLOGIC: Cranial nerves II-XII intact. PSYCHIATRIC: Awake, alert,. Appropriate affect. Intact judgement and insight. Assessment: Fall, may be secondary to generalized weakness and dehydration Non-healing foot wounds, history of gangrene/osteomyelitis with previous toe amputation and debridement with Dr. June Leukocytosis possibly secondary to above Hypovolemic hyponatremia, resolved Hyperkalemia with slight hemolysis, resolved Type 2 diabetes mellitus Generalized weakness GI prophylaxis DVT prophylaxis Full code Plan: Patient being followed by multiple consultations including infectious disease, vascular surgery, wound care Angiogram of the right lower extremity was performed by vascular surgery today. Await recommendations. Continue with Zosyn per ID recommendation. Monitor morning CBC and BMP Wound care recommended to continue with Santyl to bilateral lower extremities. Continue IV fluids at 75 cc an hour Continue with sliding scale insulin Objective - Vital Signs Vital signs: Vital Signs Temp 97.7 F 09/24/24 07:49 Pulse 97 09/24/24 07:49 Resp 16 09/24/24 07:49 BP 111/70 09/24/24 07:49 Pulse Ox 98 09/24/24 07:49 FiO2 Intake & Output 09/23/24 09/24/24 09/24/24 18:59 06:59 18:59 Output Total 300 300 Balance -300 -300 Output: Urine 300 300 Other: Voiding Method Urinal Incontinent # Voids 2 - Labs CBC & Chem 7: 09/24/24 03:25 09/24/24 07:46 Labs: Abnormal Lab Results - Last 24 Hours (Table) 09/23/24 09/23/24 09/23/24 Range/Units 02:59 12:25 17:34 Immature Gran # 0.10 H (0.00-0.04) X 10*3/uL Neutrophils # 14.28 H (1.80-7.70) X 10*3/uL Monocytes # 1.66 H (0.20-1.00) X 10*3/uL Eosinophils # 0.01 L (0.04-0.35) X 10*3/uL Carbon Dioxide (22-30) mmol/L Glucose (74-99) mg/dL POC Glucose (mg/dL) 153 H 165 H (70-110) mg/dL Albumin (3.5-5.0) g/dL 09/23/24 09/24/24 09/24/24 Range/Units 20:10 05:44 07:46 Immature Gran # (0.00-0.04) X 10*3/uL Neutrophils # (1.80-7.70) X 10*3/uL Monocytes # (0.20-1.00) X 10*3/uL Eosinophils # (0.04-0.35) X 10*3/uL Carbon Dioxide 18 L (22-30) mmol/L Glucose 114 H (74-99) mg/dL POC Glucose (mg/dL) 185 H 140 H (70-110) mg/dL Albumin 3.1 L (3.5-5.0) g/dL Microbiology - Last 24 Hours (Table) 09/19/24 21:08 Blood Culture - Preliminary Blood
[2024-09-24 17:48] LABS: Glucose,Whole Blood 151 mg/dL (70-110)
[2024-09-24 20:19] LABS: Glucose,Whole Blood 195 mg/dL (70-110)
--- NOTE | 2024-09-24 23:20 | P.PN ---
Subjective Progress Note Date: 09/24/24 Principal diagnosis: Reason for follow-up is bilateral diabetic foot ulcer cellulitis Patient is a 74-year-old male with a past medical history significant for diabetes mellitus GI bleed diabetic foot ulcer in this patient did have a left fourth and fifth toe amputation and debridement with a chronic nonhealing wound to the left foot admitted to hospital with a syncopal episode and patient also noticed to have a necrotic wound to the right big toe. On today's evaluation that is 09/24/2024, the patient continues to be afebrile, the patient is on room air and breathing comfortably, the Pt sleepy post procedure this morning by vascular surgery, no vomiting or any diarrhea has been reported by the nursing staff. Patient did have creatinine 0.77 cultures growing Enterobacter bacteroids and actinomyces Objective - Vital Signs Vital signs: Vital Signs Temp 98.1 F 09/24/24 10:30 Pulse 94 09/24/24 10:30 Resp 16 09/24/24 07:49 BP 137/69 09/24/24 10:30 Pulse Ox 100 09/24/24 10:30 FiO2 Intake & Output 09/23/24 09/24/24 09/24/24 18:59 06:59 18:59 Output Total 300 300 Balance -300 -300 Output: Urine 300 300 Other: Voiding Method Urinal Incontinent # Voids 2 - Exam GENERAL DESCRIPTION: An elderly male lying in bed in no distress RESPIRATORY SYSTEM: Unlabored breathing , decreased breath sounds at bases HEART: S1 S2 regular rate and rhythm , ABDOMEN: Soft , no tenderness EXTREMITIES: Bilateral feet were currently dressed - Labs CBC & Chem 7: 10/04/24 05:09 10/04/24 05:09 Labs: Abnormal Lab Results - Last 24 Hours (Table) 09/23/24 09/23/24 09/23/24 Range/Units 12:25 17:34 20:10 WBC (4.50-10.00) X 10*3/uL RBC (4.40-5.60) X 10*6/uL Hgb (13.0-17.0) g/dL Hct (39.6-50.0) % MCV (80.0-97.0) FL MCHC (32.0-37.0) g/dL Immature Gran # (0.00-0.04) X 10*3/uL Neutrophils # (1.80-7.70) X 10*3/uL Monocytes # (0.20-1.00) X 10*3/uL Carbon Dioxide (22-30) mmol/L Glucose (74-99) mg/dL POC Glucose (mg/dL) 153 H 165 H 185 H (70-110) mg/dL Albumin (3.5-5.0) g/dL 09/24/24 09/24/24 09/24/24 Range/Units 03:25 05:44 07:46 WBC 19.24 H (4.50-10.00) X 10*3/uL RBC 3.51 L (4.40-5.60) X 10*6/uL Hgb 10.7 L (13.0-17.0) g/dL Hct 34.8 L (39.6-50.0) % MCV 99.1 H (80.0-97.0) FL MCHC 30.7 L (32.0-37.0) g/dL Immature Gran # 0.15 H (0.00-0.04) X 10*3/uL Neutrophils # 15.51 H (1.80-7.70) X 10*3/uL Monocytes # 1.72 H (0.20-1.00) X 10*3/uL Carbon Dioxide 18 L (22-30) mmol/L Glucose 114 H (74-99) mg/dL POC Glucose (mg/dL) 140 H (70-110) mg/dL Albumin 3.1 L (3.5-5.0) g/dL Microbiology - Last 24 Hours (Table) 09/20/24 00:15 Anaerobic Culture - Preliminary Foot - Left Actinomyces neuii sp anitratus Bacteroides fragilis Group 09/19/24 21:08 Blood Culture - Preliminary Blood Assessment and Plan (1) Diabetic gangrene Status: Acute Code(s): E11.52 - TYPE 2 DIABETES W DIABETIC PERIPHERAL ANGIOPATHY W GANGRENE SNOMED Code(s): 313506443 (2) Diabetic infection of left foot Status: Acute Code(s): E11.628 - TYPE 2 DIABETES MELLITUS WITH OTHER SKIN COMPLICATIONS; L08.9 - LOCAL INFECTION OF THE SKIN AND SUBCUTANEOUS TISSUE, UNSP SNOMED Code(s): 777171423 (3) Non-pressure chronic ulcer of other part of left foot with fat layer exposed Status: Acute Code(s): L97.522 - NON-PRS CHRONIC ULCER OTH PRT LEFT FOOT W FAT LAYER EXPOSED SNOMED Code(s): 07370191635284923 Plan: 1patient with right big toe diabetic foot with a necrotic wound and evidence of secondary cellulitis will need to cover for the polymicrobial mariano associated with diabetic foot infection 2-patient also have a nonhealing wound on the left foot lateral border postdilatation of the left fourth and fifth toe but no significant purulent drainage was noticed from the site 3- vascular surgery has evaluated the patient and has ordered an angiogram, did have vascular procedure completed this morning report is currently pending 4-local culture has been finalized with the Enterobacter, actinomyces and bacteroids for which the patient is covered with Zosyn Dictation was produced using [employer] dictation software. please excuse any grammatical, word or spelling errors. Time with Patient: Less than 30
[2024-09-25 05:48] LABS: Glucose,Whole Blood 149 mg/dL (70-110)
[2024-09-25 07:41] LABS: African American GFR (CKD) >90 (>60 ml/min/1.73 sqM); Anion Gap 11 mmol/L; Basophils % (A) 0 %; Blood Urea Nitrogen 16 mg/dL (9-20); Calcium 8.4 mg/dL (8.4-10.2); Carbon Dioxide 20 mmol/L (22-30); Chloride 106 mmol/L (98-107); Eosinophils # (A) 0.2 k/uL (0-0.7); Eosinophils % (A) 2 %; Glucose 127 mg/dL (74-99); HCT 32.6 % (39.0-53.0); HGB 10.7 gm/dL (13.0-17.5); Lymphocytes # (A) 1.2 k/uL (1.0-4.8); Lymphocytes % (A) 8 %; MCH 31.5 pg (25.0-35.0); MCHC 32.9 g/dL (31.0-37.0); MCV 95.8 fL (80.0-100.0); Monocytes # (A) 0.8 k/uL (0-1.0); Monocytes % (A) 5 %; Neutrophils # (A) 11.9 k/uL (1.3-7.7); Neutrophils % (A) 83 %; Non-African American GFR(CKD) >90 (>60 ml/min/1.73 sqM); Platelet Count 311 k/uL (150-450); Potassium 3.9 mmol/L (3.5-5.1); RBC 3.41 m/uL (4.30-5.90); RDW 12.1 % (11.5-15.5); Sodium 137 mmol/L (137-145); WBC 14.3 k/uL (3.8-10.6)
[2024-09-25 11:52] LABS: Glucose,Whole Blood 261 mg/dL (70-110)
--- NOTE | 2024-09-25 14:19 | P.PN ---
Subjective Progress Note Date: 09/25/24 Principal diagnosis: Syncope Syncope Per medical H&P, "74-year-old male was brought in because he had a fall at the time they would not show to the patient is not visible patient denies a couple episode apparently patient had altered mental status patient is almost alert oriented x 3 when I evaluated the patient patient denied any UTI symptoms patient was complaining of generalized weakness. Patient does have leukocytosis without any evidence of infection at this time patient denied any cough. Patient blood sugars are high unknown what patient takes as patient does not know what she takes. Patient was discharged on 20 units of Lantus in month of February. Patient is hyponatremic and hyperkalemic." Progress note for 09/20/2024: Patient was seen at bedside today. Labs from today showed sodium 135, potassium 4.2, chloride 103, carbon dioxide 21.5, BUN 10.1, creatinine 0.7, glucose 163, hemoglobin A1c of 9.7. Vitals temperature of 98.2, pulse rate of 96, respiratory rate 19, blood pressure 135/74, O2 sat 98% on room air. Brain CT obtained last night showed no acute intracranial abnormality. Patient denies any acute complaints at this time. Patient denies any fever, chills, dizziness,, chest pain, shortness of breath/vomiting, belly pain. Patient was noted to have very big open wound on his right big toe with signs of necrosis. 09/21/2024 Patient is seen in follow-up this morning currently sitting up at the chair with multiple consultations following including vascular surgery and infectious disease. Wound care consulted and pending at this time. Vascular surgery with plans of angiogram on 09/22/2024. Patient will be n.p.o. at midnight and will await report. Follow-up with repeat labs and continue current local wound care. Jayro wraps not recommended on lower extremities. Patient is afebrile denies chest pain or shortness of breath. Patient reports intermittent pain of the lower extremities although controlled on current regimen. 09/22/2024 Patient was seen at bedside today. Patient underwent an angiogram earlier this morning. Per operative report, on the right, the takeoff of the AT is visualized and found to be severely calcified. On the left, the popliteal artery has mild to moderate calcific disease with some narrowing distally at the infrapopliteal segment. The anterior tibial artery is visualized at its takeoff with significant calcific disease throughout. Patient reported no complaints at this time. Denies any fever, chills, chest pain, shortness of breath, nausea/vomiting. Vascular surgery plan to take the patient for debridement on Friday. WBC 16.2, hemoglobin 12.5, hematocrit 39.2, platelets 273, neutrophils 14, sodium 134, potassium 4.3, glucose 127. 09/23/2024 Patient was seen at bedside today. WBC 17.33, hemoglobin 11.3, hematocrit 34.5, platelet 260, sodium 137, potassium 4.0, BUN 14.8, creatinine 0.7, glucose 130. Vitals temperature 97.9, pulse rate of 98, respiratory rate 18, blood pressure 109/65, O2 sat 99% on room air. Patient reports no acute complaints at this time. Vascular surgery plan to take patient for an angiogram and possibly amputation of the right big toe on Friday. 09/24/2024 Patient was seen at bedside today. Patient underwent an angiogram of right lower extremity this morning. Reports no complaints at this time. WBC 19.24, hemoglobin 10.7, hematocrit 34.8, platelet 306. BMP showed sodium 139, potassium 4.1, chloride 105, carbon dioxide 18, BUN 20, creatinine 0.77, glucose 114. Left foot wound culture showed positive for Enterobacter cloacae which is sensitive to the Zosyn patient is currently receiving. 09/25/2024 Patient was seen at bedside today. Reports no complaints at this time. Patient will undergo possible amputation on Friday by vascular surgery. WBC 14.3, hemoglobin 10.7, hematocrit 32.6, platelets 311, sodium 137, potassium 3.9, chloride 106, carbon dioxide 20, BUN 16, creatinine 0.67, glucose 127. Review of Systems Constitutional: Denies chills, Denies fever Eyes: denies blurred vision, double vision or pain Ears, nose, mouth and throat: Denies headache, Denies sore throat Cardiovascular: Denies chest pain, Denies shortness of breath Respiratory: Denies cough Gastrointestinal: Denies abdominal pain, Denies diarrhea, Denies nausea, Denies vomiting Musculoskeletal: Denies myalgias Integumentary: Denies pruritus, Denies rash Neurological: Denies numbness, Denies weakness Psychiatric: Denies anxiety, Denies depression Endocrine: Denies fatigue, Denies weight change GENERAL: This is a 74-year-old in no apparent distress at the time of examination. Pleasant and cooperative. HEENT: Head is atraumatic, normocephalic. Pupils are equal, round, and reactive to light. Sclerae anicteric. Conjunctivae are clear. Mucus membranes of the mouth are moist. Neck is supple. RESPIRATORY: Clear to auscultation. No wheezes, rales, or rhonchi. No use of accessory muscles. Patient maintaining oxygen saturation greater than 92%. No chest wall tenderness is noted on palpation or with deep breathing. CARDIOVASCULAR: Regular rate and rhythm. S1 and S2 noted. No systolic or diastolic murmur auscultated. No JVD noted. No S3 or S4 noted. GASTROINTESTINAL: No distention noted. Abdomen soft and round. Normal active b owel sounds auscultated x 4 quadrants. No pain or tenderness noted upon palpation. INTEGUMENTARY: No cyanosis. No jaundice. No rashes noted. No cellulitis noted. EXTREMITIES: 2+ peripheral pulses. No evidence of peripheral edema. No calf tenderness noted. Wounds noted on bilateral feet wrapped with dressing. NEUROLOGIC: Cranial nerves II-XII intact. PSYCHIATRIC: Awake, alert,. Appropriate affect. Intact judgement and insight. Assessment: Fall, may be secondary to generalized weakness and dehydration Non-healing foot wounds, history of gangrene/osteomyelitis with previous toe amputation and debridement with Dr. June Leukocytosis possibly secondary to above Hypovolemic hyponatremia, resolved Hyperkalemia with slight hemolysis, resolved Type 2 diabetes mellitus Generalized weakness GI prophylaxis DVT prophylaxis Full code Plan: Patient being followed by multiple consultations including infectious disease, vascular surgery, wound care Vascular surgery plan to take patient for a possible amputation of the right big toe on Friday Continue with Zosyn per ID recommendation. Monitor morning CBC and BMP Wound care recommended to continue with Santyl to bilateral lower extremities. Continue IV fluids at 75 cc an hour Continue with sliding scale insulin Objective - Vital Signs Vital signs: Vital Signs Temp 97.7 F 09/25/24 13:56 Pulse 100 09/25/24 13:56 Resp 17 09/25/24 13:56 BP 121/74 09/25/24 13:56 Pulse Ox 98 09/25/24 13:56 FiO2 Intake & Output 09/24/24 09/25/24 09/25/24 18:59 06:59 18:59 Intake Total 180 118 Output Total 400 1 Balance -400 180 117 Intake: Oral 180 118 Output: Urine 400 Stool 1 Other: Voiding Method Urinal Incontinent # Voids 4 # Bowel Movements 1 2 - Labs CBC & Chem 7: 09/25/24 06:41 09/25/24 06:41 Labs: Abnormal Lab Results - Last 24 Hours (Table) 09/24/24 09/24/24 09/25/24 Range/Units 17:45 20:10 05:46 WBC (3.8-10.6) k/uL RBC (4.30-5.90) m/uL Hgb (13.0-17.5) gm/dL Hct (39.0-53.0) % Neutrophils # (1.3-7.7) k/uL Carbon Dioxide (22-30) mmol/L Glucose (74-99) mg/dL POC Glucose (mg/dL) 151 H 195 H 149 H (70-110) mg/dL 09/25/24 09/25/24 09/25/24 Range/Units 06:41 06:41 11:51 WBC 14.3 H (3.8-10.6) k/uL RBC 3.41 L (4.30-5.90) m/uL Hgb 10.7 L (13.0-17.5) gm/dL Hct 32.6 L (39.0-53.0) % Neutrophils # 11.9 H (1.3-7.7) k/uL Carbon Dioxide 20 L (22-30) mmol/L Glucose 127 H (74-99) mg/dL POC Glucose (mg/dL) 261 H (70-110) mg/dL Microbiology - Last 24 Hours (Table) 09/19/24 21:08 Blood Culture - Final Blood 09/20/24 00:15 Anaerobic Culture - Final Foot - Left Actinomyces neuii sp anitratus Bacteroides fragilis Group
--- NOTE | 2024-09-25 16:29 | P.PN ---
Subjective Progress Note Date: 09/25/24 Principal diagnosis: Reason for follow-up is bilateral diabetic foot ulcer cellulitis Patient is a 74-year-old male with a past medical history significant for diabetes mellitus GI bleed diabetic foot ulcer in this patient did have a left fourth and fifth toe amputation and debridement with a chronic nonhealing wound to the left foot admitted to hospital with a syncopal episode and patient also noticed to have a necrotic wound to the right big toe. On today's evaluation that is 09/25/2024, patient did not have any fever and denies any chills, patient is breathing comfortably on room air, patient with no chest pain or cough patient did not have any abdominal pain nausea vomiting or any loose stools or any worsening pain to the foot wound. The patient white count is 14.3 creatinine 0.67 Objective - Vital Signs Vital signs: Vital Signs Temp 97.7 F 09/25/24 13:56 Pulse 100 09/25/24 13:56 Resp 17 09/25/24 13:56 BP 121/74 09/25/24 13:56 Pulse Ox 98 09/25/24 13:56 FiO2 Intake & Output 09/24/24 09/25/24 09/25/24 18:59 06:59 18:59 Intake Total 180 118 Output Total 400 1 Balance -400 180 117 Intake: Oral 180 118 Output: Urine 400 Stool 1 Other: Voiding Method Urinal Incontinent # Voids 4 # Bowel Movements 1 2 - Exam GENERAL DESCRIPTION: An elderly male lying in bed in no distress RESPIRATORY SYSTEM: Unlabored breathing , decreased breath sounds at bases HEART: S1 S2 regular rate and rhythm , ABDOMEN: Soft , no tenderness EXTREMITIES: Bilateral feet were currently dressed - Labs CBC & Chem 7: 09/25/24 06:41 09/25/24 06:41 Labs: Abnormal Lab Results - Last 24 Hours (Table) 09/24/24 09/24/24 09/25/24 Range/Units 17:45 20:10 05:46 WBC (3.8-10.6) k/uL RBC (4.30-5.90) m/uL Hgb (13.0-17.5) gm/dL Hct (39.0-53.0) % Neutrophils # (1.3-7.7) k/uL Carbon Dioxide (22-30) mmol/L Glucose (74-99) mg/dL POC Glucose (mg/dL) 151 H 195 H 149 H (70-110) mg/dL 09/25/24 09/25/24 09/25/24 Range/Units 06:41 06:41 11:51 WBC 14.3 H (3.8-10.6) k/uL RBC 3.41 L (4.30-5.90) m/uL Hgb 10.7 L (13.0-17.5) gm/dL Hct 32.6 L (39.0-53.0) % Neutrophils # 11.9 H (1.3-7.7) k/uL Carbon Dioxide 20 L (22-30) mmol/L Glucose 127 H (74-99) mg/dL POC Glucose (mg/dL) 261 H (70-110) mg/dL Microbiology - Last 24 Hours (Table) 09/19/24 21:08 Blood Culture - Final Blood 09/20/24 00:15 Anaerobic Culture - Final Foot - Left Actinomyces neuii sp anitratus Bacteroides fragilis Group Assessment and Plan (1) Diabetic gangrene Current Visit: No Status: Acute Code(s): E11.52 - TYPE 2 DIABETES W DIABETIC PERIPHERAL ANGIOPATHY W GANGRENE SNOMED Code(s): 315679016 (2) Diabetic infection of left foot Current Visit: No Status: Acute Code(s): E11.628 - TYPE 2 DIABETES MELLITUS WITH OTHER SKIN COMPLICATIONS; L08.9 - LOCAL INFECTION OF THE SKIN AND SUBCUTANEOUS TISSUE, UNSP SNOMED Code(s): 829490514 (3) Non-pressure chronic ulcer of other part of left foot with fat layer exposed Current Visit: No Status: Acute Code(s): L97.522 - NON-PRS CHRONIC ULCER OTH PRT LEFT FOOT W FAT LAYER EXPOSED SNOMED Code(s): 08184269220621663 Plan: 1patient with right big toe diabetic foot with a necrotic wound and evidence of secondary cellulitis will need to cover for the polymicrobial mariano associated with diabetic foot infection 2-patient also have a nonhealing wound on the left foot lateral border postdilatation of the left fourth and fifth toe but no significant purulent drainage was noticed from the site 3- vascular surgery has evaluated the patient and has ordered an angiogram, did have angioplasty completed 09/24/2024 4-local culture has been finalized with the Enterobacter, actinomyces and bacteroids 5patient is currently being treated with the Zosyn to continue and monitor clinical course closely Dictation was produced using [employer] dictation software. please excuse any grammatical, word or spelling errors. Time with Patient: Less than 30
[2024-09-25 17:09] LABS: Glucose,Whole Blood 257 mg/dL (70-110)
[2024-09-25 20:22] LABS: Glucose,Whole Blood 273 mg/dL (70-110)
[2024-09-26 05:31] LABS: Glucose,Whole Blood 149 mg/dL (70-110)
[2024-09-26 09:31] LABS: Basophils # (A) 0.06 X 10*3/uL (0.00-0.10); Basophils % (A) 0.4 %; Eosinophils # (A) 0.37 X 10*3/uL (0.04-0.35); Eosinophils % (A) 2.4 %; HCT 33.8 % (39.6-50.0); HGB 10.8 g/dL (13.0-17.0); Lymphocytes # (A) 1.76 X 10*3/uL (0.90-5.00); Lymphocytes % (A) 11.2 %; MCH 30.6 pg (27.0-32.0); MCV 95.8 FL (80.0-97.0); Monocytes # (A) 1.33 X 10*3/uL (0.20-1.00); Monocytes % (A) 8.5 %; NRBC Per 100 WBC 0 X 10*3/uL (0.00-0.01); Neutrophils # (A) 11.94 X 10*3/uL (1.80-7.70); Neutrophils % (A) 76.1 %; Platelet Count 311 X 10*3/uL (140-440); RBC 3.53 X 10*6/uL (4.40-5.60); RDW 11.9 % (11.5-14.5); WBC 15.68 X 10*3/uL (4.50-10.00)
[2024-09-26 11:28] LABS: BUN/Creat Ratio 16.71 Ratio (12.00-20.00); Blood Urea Nitrogen 11.7 mg/dL (9.0-27.0); Calcium 8.2 mg/dL (8.7-10.3); Carbon Dioxide 21.9 mmol/L (21.6-31.8); Chloride 105 mmol/L (96-109); Glucose 122 mg/dL (70-110); Potassium 3.7 mmol/L (3.5-5.5); Sodium 139 mmol/L (135-145)
[2024-09-26 12:17] LABS: Glucose,Whole Blood 168 mg/dL (70-110)
--- NOTE | 2024-09-26 14:17 | P.PN ---
Subjective Per medical H&P, "74-year-old male was brought in because he had a fall at the time they would not show to the patient is not visible patient denies a couple episode apparently patient had altered mental status patient is almost alert oriented x 3 when I evaluated the patient patient denied any UTI symptoms patient was complaining of generalized weakness. Patient does have leukocytosis without any evidence of infection at this time patient denied any cough. Patient blood sugars are high unknown what patient takes as patient does not know what she takes. Patient was discharged on 20 units of Lantus in month of February. Patient is hyponatremic and hyperkalemic." Progress note for 09/20/2024: Patient was seen at bedside today. Labs from today showed sodium 135, potassium 4.2, chloride 103, carbon dioxide 21.5, BUN 10.1, creatinine 0.7, glucose 163, hemoglobin A1c of 9.7. Vitals temperature of 98.2, pulse rate of 96, respiratory rate 19, blood pressure 135/74, O2 sat 98% on room air. Brain CT obtained last night showed no acute intracranial abnormality. Patient denies any acute complaints at this time. Patient denies any fever, chills, dizziness,, chest pain, shortness of breath/vomiting, belly pain. Aida stewart was noted to have very big open wound on his right big toe with signs of necrosis. 09/21/2024 Patient is seen in follow-up this morning currently sitting up at the chair with multiple consultations following including vascular surgery and infectious disease. Wound care consulted and pending at this time. Vascular surgery with plans of angiogram on 09/22/2024. Patient will be n.p.o. at midnight and will await report. Follow-up with repeat labs and continue current local wound care. Jayro wraps not recommended on lower extremities. Patient is afebrile denies chest pain or shortness of breath. Patient reports intermittent pain of the lower extremities although controlled on current regimen. 09/22/2024 Patient was seen at bedside today. Patient underwent an angiogram earlier this morning. Per operative report, on the right, the takeoff of the AT is visualized and found to be severely calcified. On the left, the popliteal artery has mild to moderate calcific disease with some narrowing distally at the infrapopliteal segment. The anterior tibial artery is visualized at its takeoff with significant calcific disease throughout. Patient reported no complaints at this time. Denies any fever, chills, chest pain, shortness of breath, nausea/vomiting. Vascular surgery plan to take the patient for debridement on Friday. WBC 16.2, hemoglobin 12.5, hematocrit 39.2, platelets 273, neutrophils 14, sodium 134, potassium 4.3, glucose 127. 09/23/2024 Patient was seen at bedside today. WBC 17.33, hemoglobin 11.3, hematocrit 34.5, platelet 260, sodium 137, potassium 4.0, BUN 14.8, creatinine 0.7, glucose 130. Vitals temperature 97.9, pulse rate of 98, respiratory rate 18, blood pressure 109/65, O2 sat 99% on room air. Patient reports no acute complaints at this time. Vascular surgery plan to take patient for an angiogram and possibly amputation of the right big toe on Friday. 09/24/2024 Patient was seen at bedside today. Patient underwent an angiogram of right lower extremity this morning. Reports no complaints at this time. WBC 19.24, hemoglobin 10.7, hematocrit 34.8, platelet 306. BMP showed sodium 139, potassium 4.1, chloride 105, carbon dioxide 18, BUN 20, creatinine 0.77, glucose 114. Left foot wound culture showed positive for Enterobacter cloacae which is sensitive to the Zosyn patient is currently receiving. 09/25/2024 Patient was seen at bedside today. Reports no complaints at this time. Patient will undergo possible amputation on Friday by vascular surgery. WBC 14.3, hemoglobin 10.7, hematocrit 32.6, platelets 311, sodium 137, potassium 3.9, chloride 106, carbon dioxide 20, BUN 16, creatinine 0.67, glucose 127. 09/26 Patient currently sitting up on the bedside Both l feet and needs a dressing. He has mild pain which looks controlled Imaging reviewed: CT angio showing severe atrophic changes of aorta extending into branch vessels and most severe findings in the bilateral lower extremities below the knees. 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 June on 09/24/2024 Patient currently covered with IV Zosyn and normal saline 75 mL/h Objective - Vital Signs Vital signs: Vital Signs Temp 98.2 F 09/26/24 08:00 Pulse 103 H 09/26/24 08:00 Resp 17 09/26/24 08:00 BP 120/63 09/26/24 08:00 Pulse Ox 96 09/26/24 08:00 FiO2 Intake & Output 09/25/24 09/26/24 09/26/24 18:59 06:59 18:59 Intake Total 118 Output Total 1 Balance 117 Intake: Oral 118 Output: Stool 1 Other: Voiding Method Urinal Incontinent # Voids 2 2 # Bowel Movements 1 - Exam GENERAL: The patient is alert and oriented x2-3, not in any acute distress. Well developed, well nourished. Generally weak HEENT: Pupils are round and equally reacting to light. EOMI. No scleral icterus. No conjunctival pallor. Normocephalic, atraumatic. No pharyngeal erythema. No thyromegaly. CARDIOVASCULAR: S1 and S2 present. No murmurs, rubs, or gallops. PULMONARY: Chest is clear to auscultation, no wheezing , no crackles. ABDOMEN: Soft, nontender, nondistended, normoactive bowel sounds. No palpable organomegaly. MUSCULOSKELETAL: No joint swelling or deformity. -EXTREMITIES: No cyanosis, clubbing, or pedal edema. Both feet in a dressing NEUROLOGICAL: Gross neurological examination did not reveal any focal deficits. SKIN: No rashes. no petechiae. - Labs CBC & Chem 7: 09/26/24 04:40 09/26/24 04:40 Labs: Abnormal Lab Results - Last 24 Hours (Table) 09/25/24 09/25/24 09/26/24 Range/Units 17:07 20:20 04:40 WBC 15.68 H (4.50-10.00) X 10*3/uL RBC 3.53 L (4.40-5.60) X 10*6/uL Hgb 10.8 L (13.0-17.0) g/dL Hct 33.8 L (39.6-50.0) % Immature Gran # 0.22 H (0.00-0.04) X 10*3/uL Neutrophils # 11.94 H (1.80-7.70) X 10*3/uL Monocytes # 1.33 H (0.20-1.00) X 10*3/uL Eosinophils # 0.37 H (0.04-0.35) X 10*3/uL Anion Gap (4.00-12.00) mmol/L Glucose (70-110) mg/dL POC Glucose (mg/dL) 257 H 273 H (70-110) mg/dL Calcium (8.7-10.3) mg/dL 09/26/24 09/26/24 09/26/24 Range/Units 04:40 05:28 12:16 WBC (4.50-10.00) X 10*3/uL RBC (4.40-5.60) X 10*6/uL Hgb (13.0-17.0) g/dL Hct (39.6-50.0) % Immature Gran # (0.00-0.04) X 10*3/uL Neutrophils # (1.80-7.70) X 10*3/uL Monocytes # (0.20-1.00) X 10*3/uL Eosinophils # (0.04-0.35) X 10*3/uL Anion Gap 12.10 H (4.00-12.00) mmol/L Glucose 122 H (70-110) mg/dL POC Glucose (mg/dL) 149 H 168 H (70-110) mg/dL Calcium 8.2 L (8.7-10.3) mg/dL Microbiology - Last 24 Hours (Table) 09/19/24 21:08 Blood Culture - Final Blood Assessment and Plan Assessment: Fall, may be secondary to generalized weakness and dehydration Non-healing diabetic foot wounds, history of gangrene/osteomyelitis with previous toe amputation and debridement with Dr. June Peripheral artery disease. CT angio showing severe atrophic changes of aorta extending into branch vessels and most severe findings in the bilateral lower extremities below the knees. Leukocytosis possibly secondary to above avascular necrosis of the femoral head Hypovolemic hyponatremia, resolved Hyperkalemia with slight hemolysis, resolved Type 2 diabetes mellitus Generalized weakness GI prophylaxis DVT prophylaxis Full code Plan: Patient being followed by multiple consultations including infectious disease, vascular surgery, wound care Vascular surgery plan to take patient for a possible amputation of the right big toe on Friday Continue with Zosyn per ID recommendation. Monitor morning CBC and BMP Wound care recommended to continue with Santyl to bilateral lower extremities. Continue IV fluids at 75 cc an hour Continue with sliding scale insulin
[2024-09-26] MEDS: IBUPROFEN 400 MG TAB PO STA (14:49)
--- NOTE | 2024-09-26 15:06 | P.PN ---
Subjective Progress Note Date: 09/26/24 Principal diagnosis: Reason for follow-up is bilateral diabetic foot ulcer cellulitis Patient is a 74-year-old male with a past medical history significant for diabetes mellitus GI bleed diabetic foot ulcer in this patient did have a left fourth and fifth toe amputation and debridement with a chronic nonhealing wound to the left foot admitted to hospital with a syncopal episode and patient also noticed to have a necrotic wound to the right big toe. On today's evaluation that is 09/26/2024, Patient is afebrile patient is currently on room air and denies having any shortness of breath, the patient denies any chest pain or cough, the patient denies any nausea vomiting did not have any abdominal pain and no diarrhea and denies any worsening pain to the bilateral feet wound area. Patient white count is 15.68 creatinine 0.7 Objective - Vital Signs Vital signs: Vital Signs Temp 98.2 F 09/26/24 08:00 Pulse 103 H 09/26/24 08:00 Resp 17 09/26/24 08:00 BP 120/63 09/26/24 08:00 Pulse Ox 96 09/26/24 08:00 FiO2 Intake & Output 09/25/24 09/26/24 09/26/24 18:59 06:59 18:59 Intake Total 118 Output Total 1 Balance 117 Intake: Oral 118 Output: Stool 1 Other: Voiding Method Urinal Incontinent # Voids 2 2 # Bowel Movements 1 - Exam GENERAL DESCRIPTION: An elderly male lying in bed in no distress RESPIRATORY SYSTEM: Unlabored breathing , decreased breath sounds at bases HEART: S1 S2 regular rate and rhythm , ABDOMEN: Soft , no tenderness EXTREMITIES: Bilateral feet were currently dressed - Labs CBC & Chem 7: 09/26/24 04:40 09/26/24 04:40 Labs: Abnormal Lab Results - Last 24 Hours (Table) 09/25/24 09/25/24 09/25/24 Range/Units 11:51 17:07 20:20 WBC (4.50-10.00) X 10*3/uL RBC (4.40-5.60) X 10*6/uL Hgb (13.0-17.0) g/dL Hct (39.6-50.0) % Immature Gran # (0.00-0.04) X 10*3/uL Neutrophils # (1.80-7.70) X 10*3/uL Monocytes # (0.20-1.00) X 10*3/uL Eosinophils # (0.04-0.35) X 10*3/uL Anion Gap (4.00-12.00) mmol/L Glucose (70-110) mg/dL POC Glucose (mg/dL) 261 H 257 H 273 H (70-110) mg/dL Calcium (8.7-10.3) mg/dL 09/26/24 09/26/24 09/26/24 Range/Units 04:40 04:40 05:28 WBC 15.68 H (4.50-10.00) X 10*3/uL RBC 3.53 L (4.40-5.60) X 10*6/uL Hgb 10.8 L (13.0-17.0) g/dL Hct 33.8 L (39.6-50.0) % Immature Gran # 0.22 H (0.00-0.04) X 10*3/uL Neutrophils # 11.94 H (1.80-7.70) X 10*3/uL Monocytes # 1.33 H (0.20-1.00) X 10*3/uL Eosinophils # 0.37 H (0.04-0.35) X 10*3/uL Anion Gap 12.10 H (4.00-12.00) mmol/L Glucose 122 H (70-110) mg/dL POC Glucose (mg/dL) 149 H (70-110) mg/dL Calcium 8.2 L (8.7-10.3) mg/dL Microbiology - Last 24 Hours (Table) 09/19/24 21:08 Blood Culture - Final Blood Assessment and Plan (1) Diabetic gangrene Current Visit: No Status: Acute Code(s): E11.52 - TYPE 2 DIABETES W DIABETIC PERIPHERAL ANGIOPATHY W GANGRENE SNOMED Code(s): 125524320 (2) Diabetic infection of left foot Current Visit: No Status: Acute Code(s): E11.628 - TYPE 2 DIABETES MELLITUS WITH OTHER SKIN COMPLICATIONS; L08.9 - LOCAL INFECTION OF THE SKIN AND S UBCUTANEOUS TISSUE, UNSP SNOMED Code(s): 744616443 (3) Non-pressure chronic ulcer of other part of left foot with fat layer exposed Current Visit: No Status: Acute Code(s): L97.522 - NON-PRS CHRONIC ULCER OTH PRT LEFT FOOT W FAT LAYER EXPOSED SNOMED Code(s): 42857832429246633 Plan: 1patient with right big toe diabetic foot with a necrotic wound and evidence of secondary cellulitis will need to cover for the polymicrobial mariano associated with diabetic foot infection 2-patient also have a nonhealing wound on the left foot lateral border postdilatation of the left fourth and fifth toe but no significant purulent drainage was noticed from the site 3- vascular surgery has evaluated the patient and has ordered an angiogram, did have angioplasty completed 09/24/2024 4-local culture has been finalized with the Enterobacter, actinomyces and bacteroids 5patient will continue with Zosyn white count slightly up today that will be monitored closely, await further evaluation by vascular surgery tomorrow Dictation was produced using [employer] dictation software. please excuse any grammatical, word or spelling errors. Time with Patient: Less than 30
[2024-09-26 17:12] LABS: Glucose,Whole Blood 176 mg/dL (70-110)
[2024-09-26] MEDS: NICOTINE 21MG/24HR PATCH TRANSDERM SCH (19:06)
[2024-09-26] MEDS: LORazepam 0.5 MG TAB PO ONE (19:06)
[2024-09-26 20:53] LABS: Glucose,Whole Blood 89 mg/dL (70-110)
[2024-09-27 06:09] LABS: Glucose,Whole Blood 112 mg/dL (70-110)
[2024-09-27] MEDS: CLOPIDOGREL 75 MG TAB PO SCH (09:59)
[2024-09-27 12:14] LABS: Glucose,Whole Blood 194 mg/dL (70-110)
--- NOTE | 2024-09-27 12:58 | P.PN ---
Subjective Progress Note Date: 09/27/24 Principal diagnosis: Cellulitis Patient is seen and examined today as a follow-up. He is status post percutaneous angioplasty of the right lower extremity PT and SFA. Patient is currently somewhat confused very drowsy. His significant other is at the bedside. Denies any acute changes through the night. Objective - Vital Signs Vital signs: Vital Signs Temp 97.6 F 09/27/24 07:42 Pulse 90 09/27/24 07:42 Resp 16 09/27/24 07:42 BP 153/67 09/27/24 07:42 Pulse Ox 99 09/27/24 07:42 FiO2 Intake & Output 09/26/24 09/27/24 09/27/24 18:59 06:59 18:59 Intake Total 118 221 Output Total 400 Balance 118 -400 221 Intake: Oral 118 221 Output: Urine 400 Other: Voiding Method Urinal Incontinent # Voids 3 2 # Bowel Movements 1 - Exam General appearance: The patient is alert, oriented, appears in no acute distress. HET: Head is normocephalic and atraumatic. Pupils are equal and reactive. Neck: Supple. Abdomen: Soft, nontender, nondistended. Extremities: Left foot with dressing clean dry and intact. Right lower extremity with ulcers to the rivera with the distal 1 oozing clear fluid. Right great toe with some nonviable necrotic tissue, otherwise wound with some granulation. Distal aspect of great toe cool to the touch, dusky and purple. Malodorous. Neurological: Very drowsy, appears slightly confused today. Alert to self. - Labs CBC & Chem 7: 09/26/24 04:40 09/26/24 04:40 Labs: Abnormal Lab Results - Last 24 Hours (Table) 09/26/24 09/27/24 09/27/24 Range/Units 17:11 06:06 12:13 POC Glucose (mg/dL) 176 H 112 H 194 H (70-110) mg/dL Assessment and Plan Assessment: 1. Bilateral lower extremity diabetic wounds 2. Nonhealing right foot wound 3. 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 Right foot cellulitis 5. Diabetes mellitus 6. History of left toe infection status post amputation 7. Smoker Plan: 1. Continue with antibiotic recommendations from infectious disease 2. Continue with local wound care per recommendations from wound clinic 3. Will plan for right great toe amputation on Friday 4. Continue aspirin and Plavix 5. Rest of medical management per primary medical team Thank you for this consultation, we will continue to follow. The impression and plan of care has been dictated as directed. Dr. June I performed a history and examination of this patient, discussed the same with the dictator. I agree with the dictator's note ,documented as a scribe. Any additional findings or plans will be noted.
--- NOTE | 2024-09-27 16:59 | P.OP ---
Date of Procedure: 09/24/24 Description of Procedure: Preoperative diagnosis: Hickman 5 peripheral arterial disease right lower extremity Postoperative diagnosis: Same Procedure: Ultrasound-guided left common femoral artery access Left iliofemoral angiogram Selective third order right lower extremity angiogram to anterior tibial artery Moderate conscious sedation x 59 minutes with personal monitoring certified RN administration Surgeon: Halina June D.O. EBL: Less than 5 cc IV fluids: See records Urine output: Not measured Drains: None Complications: None immediately apparent Condition: Stable Operative indication and findings: Patient is a 74-year-old male with wounds of his bilateral lower extremities and infrapopliteal disease who Desired undergo intervention rather than going forward with amputation. Risks and benefits were discussed. He seemed understood and was willing to proceed. Procedure in detail: Patient was brought to the vascular and placed in supine position. The bilateral groins were prepped and draped in usual sterile fashion. A preprocedural timeout was performed, all parties were in agreement. Ultrasound was utilized and the left common femoral artery was identified. The skin overlying was anesthetized 1% lidocaine plain. The artery was visualized and found to be patent and free of visualized thrombus or significant calcific disease. Seldinger technique was used to place a 6 Filipino sheath. A left iliofemoral angiogram was performed showing no significant stenosis at the level of the iliac. Catheters and wires were then used to guide to the contralateral femoral system where a femoral angiogram was performed showing severe diffuse calcific disease without any obvious areas of occlusion to the superficial femoral artery. Catheters and wires were then directed down to the infrapopliteal vessels and an angiogram was performed showing multilevel disease of the anterior tibial artery as well as in the peroneal. No significant posterior tibial was identified. Catheters and wires were used to cross the lesion in the anterior tibial artery and the luminal gain was confirmed with angiogram at the distal anterior tibial artery. Balloon angioplasty with a 2.5 x 200 balloon was utilized in the anterior tibial artery. Nitro was also given. This elicited significant improvement of the areas of occlusion with continuous flow. The catheter was then withdrawn into the distal popliteal artery and a repeat image was performed after nitro was given showing significant improvement of the anterior tibial artery with continuous flow throughout. The peroneal appeared improved. A 6 x 120 chocolate balloon was then utilized for the superficial femoral artery and angioplasty throughout with modest improvement of the superficial femoral artery. At this point the catheters and wires were removed. The sheath was removed and Perclose device and manual pressure was then performed. Hemostasis appeared adequate. The patient was sent back to his room in stable condition having tolerated the procedure well.
[2024-09-27 17:20] LABS: Glucose,Whole Blood 181 mg/dL (70-110)
[2024-09-27 20:30] LABS: Glucose,Whole Blood 223 mg/dL (70-110)
[2024-09-28 06:30] LABS: Glucose,Whole Blood 146 mg/dL (70-110)
--- NOTE | 2024-09-28 10:38 | P.PN ---
Subjective Progress Note Date: 09/28/24 Principal diagnosis: Cellulitis Patient is seen and examined today as a follow-up. Patient is much more alert today. He is sitting up at the bedside. No acute changes through the night. No complaints of any significant pain. He is scheduled to undergo right great toe amputation tomorrow. He remains on IV antibiotics. He has been afebrile. Objective - Vital Signs Vital signs: Vital Signs Temp 97.4 F L 09/28/24 07:51 Pulse 99 09/28/24 07:51 Resp 17 09/28/24 07:51 BP 145/67 09/28/24 07:51 Pulse Ox 99 09/28/24 07:51 FiO2 Intake & Output 09/27/24 09/28/24 09/28/24 18:59 06:59 18:59 Intake Total 442 1240 118 Balance 442 1240 118 Weight 117.48 kg Intake: Intake, IV Titration 1000 Amount Piperacillin-Tazobactam 3 100 .375 gm In Sodium Chloride 0.9% 100 ml @ 25 mls/hr IVPB Q8HR [facility] Rx# :[id number] Sodium Chloride 0.9% 1, 900 000 ml @ 75 mls/hr IV . [id number] [facility] Rx#:[id number] Oral 442 240 118 Other: Voiding Method Urinal Urinal Incontinent Incontinent # Voids 2 - Exam General appearance: The patient is alert, oriented, appears in no acute distress. HET: Head is normocephalic and atraumatic. Pupils are equal and reactive. Neck: Supple. Abdomen: Soft, nontender, nondistended. Extremities: Left foot with dressing clean dry and intact. Right lower extremity with ulcers to the rivera. Right foot with dressing clean dry and intact with Jayro wrap. Neurological: Alert and oriented. - Labs CBC & Chem 7: 09/26/24 04:40 09/26/24 04:40 Labs: Abnormal Lab Results - Last 24 Hours (Table) 09/27/24 09/27/24 09/27/24 Range/Units 12:13 17:19 20:29 POC Glucose (mg/dL) 194 H 181 H 223 H (70-110) mg/dL 09/28/24 Range/Units 06:27 POC Glucose (mg/dL) 146 H (70-110) mg/dL Assessment and Plan Assessment: 1. Bilateral lower extremity diabetic wounds 2. Nonhealing right foot wound 3. 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 Right foot cellulitis 5. Diabetes mellitus 6. History of left toe infection status post amputation 7. Smoker Plan: 1. Continue with antibiotic recommendations from infectious disease 2. Continue with local wound care per recommendations from wound clinic 3. Will plan for right great toe amputation tomorrow 4. Continue aspirin and Plavix, may consider resuming Xarelto as well postsurgery 5. N.p.o. after midnight 5. Rest of medical management per primary medical team 6. Anticipate patient will be ready for discharge to subacute rehab from a vascular surgical standpoint on Thank you for this consultation, we will continue to follow. The impression and plan of care has been dictated as directed. Dr. Ko I performed a history and examination of this patient, discussed the same with the dictator. I agree with the dictator's note ,documented as a scribe. Any additional findings or plans will be noted.
[2024-09-28 12:07] LABS: Glucose,Whole Blood 391 mg/dL (70-110)
--- NOTE | 2024-09-28 14:59 | XR ---
EXAMINATION TYPE: XR chest 1V DATE OF EXAM: 09/28/2024 2:37 PM COMPARISON: 09/18/2024 CLINICAL INDICATION: Male, 74 years old with history of For placement of PICC line, TECHNIQUE: XR chest 1V view(s) obtained. FINDINGS: The heart size is normal. The pulmonary vasculature is normal. Some mild subsegmental atelectasis may be at the bilateral lung bases IMPRESSION: 1. Clinical correlation recommended for mild subsegmental atelectasis bilateral lung bases. [facility], , 09/28/2024 2:57 PM
[2024-09-28 17:03] LABS: Glucose,Whole Blood 70 mg/dL (70-110)
[2024-09-28 18:06] LABS: Glucose,Whole Blood 94 mg/dL (70-110)
[2024-09-28 20:40] LABS: Glucose,Whole Blood 115 mg/dL (70-110)
[2024-09-29 05:48] LABS: Glucose,Whole Blood 109 mg/dL (70-110)
--- NOTE | 2024-09-29 06:24 | P.PN ---
Subjective Progress Note Date: 09/28/24 Per medical H&P, "74-year-old male was brought in because he had a fall at the time they would not show to the patient is not visible patient denies a couple episode apparently patient had altered mental status patient is almost alert oriented x 3 when I evaluated the patient patient denied any UTI symptoms patient was complaining of generalized weakness. Patient does have leukocytosis without any evidence of infection at this time patient denied any cough. Patient blood sugars are high unknown what patient takes as patient does not know what she takes. Patient was discharged on 20 units of Lantus in month of February. Patient is hyponatremic and hyperkalemic." Progress note for 09/20/2024: Patient was seen at bedside today. Labs from today showed sodium 135, potassium 4.2, chloride 103, carbon dioxide 21.5, BUN 10.1, creatinine 0.7, glucose 163, hemoglobin A1c of 9.7. Vitals temperature of 98.2, pulse rate of 96, respiratory rate 19, blood pressure 135/74, O2 sat 98% on room air. Brain CT obtained last night showed no acute intracranial abnormality. Patient denies any acute complaints at this time. Patient denies any fever, chills, dizziness,, chest pain, shortness of breath/vomiting, belly pain. Patient was noted to have very big open wound on his right big toe with signs of necrosis. 09/21/2024 Patient is seen in follow-up this morning currently sitting up at the chair with multiple consultations following including vascular surgery and infectious d isease. Wound care consulted and pending at this time. Vascular surgery with plans of angiogram on 09/22/2024. Patient will be n.p.o. at midnight and will await report. Follow-up with repeat labs and continue current local wound care. Jayro wraps not recommended on lower extremities. Patient is afebrile denies chest pain or shortness of breath. Patient reports intermittent pain of the lower extremities although controlled on current regimen. 09/22/2024 Patient was seen at bedside today. Patient underwent an angiogram earlier this morning. Per operative report, on the right, the takeoff of the AT is visualized and found to be severely calcified. On the left, the popliteal artery has mild to moderate calcific disease with some narrowing distally at the infrapopliteal segment. The anterior tibial artery is visualized at its takeoff with significant calcific disease throughout. Patient reported no complaints at this time. Denies any fever, chills, chest pain, shortness of breath, nausea/vomiting. Vascular surgery plan to take the patient for debridement on Friday. WBC 16.2, hemoglobin 12.5, hematocrit 39.2, platelets 273, neutrophils 14, sodium 134, potassium 4.3, glucose 127. 09/23/2024 Patient was seen at bedside today. WBC 17.33, hemoglobin 11.3, hematocrit 34.5, platelet 260, sodium 137, potassium 4.0, BUN 14.8, creatinine 0.7, glucose 130. Vitals temperature 97.9, pulse rate of 98, respiratory rate 18, blood pressure 109/65, O2 sat 99% on room air. Patient reports no acute complaints at this time. Vascular surgery plan to take patient for an angiogram and possibly amputation of the right big toe on Friday. 09/24/2024 Patient was seen at bedside today. Patient underwent an angiogram of right lower extremity this morning. Reports no complaints at this time. WBC 19.24, hemoglobin 10.7, hematocrit 34.8, platelet 306. BMP showed sodium 139, potassium 4.1, chloride 105, carbon dioxide 18, BUN 20, creatinine 0.77, glucose 114. Left foot wound culture showed positive for Enterobacter cloacae which is sensitive to the Zosyn patient is currently receiving. 09/25/2024 Patient was seen at bedside today. Reports no complaints at this time. Patient will undergo possible amputation on Friday by vascular surgery. WBC 14.3, hemoglobin 10.7, hematocrit 32.6, platelets 311, sodium 137, potassium 3.9, chloride 106, carbon dioxide 20, BUN 16, creatinine 0.67, glucose 127. 09/26 Patient currently sitting up on the bedside Both l feet and needs a dressing. He has mild pain which looks controlled Imaging reviewed: CT angio showing severe atrophic changes of aorta extending into branch vessels and most severe findings in the bilateral lower extremities below the knees. 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 June on 09/24/2024 Patient currently covered with IV Zosyn and normal saline 75 mL/h 09/27/2024 Patient is seen and evaluated in follow-up continues with sitter at the bedside as patient is impulsive and high risk for falls. Patient being followed by vascular surgery and is planning possible amputation of the great toe this week. Patient also being followed by infectious disease maintained on antibiotics and will continue. Patient was lethargic and recommend limiting narcotic use. Encouraged increase activity as tolerated and sitting up more frequently. Review of systems: Constitutional: No reports of fatigue, fever, or chills Cardiovascular: No reports of chest pain or palpitations Respiratory: No reports of shortness of breath or cough GI: No reports of nausea, vomiting, or diarrhea : No reports of dysuria or retention Neurovascular: reports of generalized weakness, denies foot pain All medications have been reviewed Physical exam: Gen: This is a 74-year-old male who is awake, alert and oriented x 2, baseline, well-developed, elderly appearing, unkempt, obese HEENT: Head is atraumatic, normocephalic. Pupils equal, round. Sclerae is anicteric. NECK: Supple. No JVD. No lymphadenopathy. No thyromegaly. LUNGS: Diminished breath sounds bilaterally otherwise clear to auscultation. No wheezes or rhonchi. No intercostal retractions. HEART: S1, S2 are muffled ABDOMEN: Soft. Thin bowel sounds are present. No masses. No tenderness. EXTREMITIES: No pedal edema. No calf tenderness. Right lower extremity Jayro wrap applied with significant drainage that is dried noted on the dressing NEUROLOGICAL: Patient is awake, alert and oriented x2. Cranial nerves 2 through 12 are grossly intact. Diffusely weak Assessment: Fall, may be secondary to generalized weakness and dehydration Non-healing diabetic foot wounds, history of gangrene/osteomyelitis with previous toe amputation and debridement with Dr. June Peripheral artery disease. CT angio showing severe atrophic changes of aorta extending into branch vessels and most severe findings in the bilateral lower extremities below the knees. Leukocytosis possibly secondary to above avascular necrosis of the femoral head Hypovolemic hyponatremia, resolved Hyperkalemia with slight hemolysis, resolved Type 2 diabetes mellitus Generalized weakness GI prophylaxis DVT prophylaxis Full code Plan: Patient being followed by multiple consultations including infectious disease, vascular surgery, wound care Vascular surgery plan to take patient for a possible amputation of the right big toe on Friday with Dr. June Continue with Zosyn per ID recommendation. Patient will likely require IV antibiotics on discharge Monitor morning CBC and BMP Wound care recommended to continue with Santyl to bilateral lower extremities. Continue IV fluids at 75 cc an hour Continue with sliding scale insulin The impression and plan of care has been dictated by Gloria Shore, Nurse Practitioner as directed. Dr. Africa MD I have performed a history and examination and MDM of this patient, discussed the same with the dictator, and agree with the dictator's assessment and plan as written ,documented as a scribe. Based on total visit time, I have performed more than 50% of the visit. Objective - Vital Signs Vital signs: Vital Signs Temp 97.4 F L 09/28/24 07:51 Pulse 99 09/28/24 07:51 Resp 17 09/28/24 07:51 BP 145/67 09/28/24 07:51 Pulse Ox 99 09/28/24 07:51 FiO2 Intake & Output 09/27/24 09/28/24 09/28/24 18:59 06:59 18:59 Intake Total 442 1240 118 Balance 442 1240 118 Weight 117.48 kg Intake: Intake, IV Titration 1000 Amount Piperacillin-Tazobactam 3 100 .375 gm In Sodium Chloride 0.9% 100 ml @ 25 mls/hr IVPB Q8HR [facility] Rx# :[id number] Sodium Chloride 0.9% 1, 900 000 ml @ 75 mls/hr IV . [id number] [facility] Rx#:[id number] Oral 442 [id number] Other: Voiding Method Urinal Urinal Incontinent Incontinent # Voids 2 - Labs CBC & Chem 7: 09/26/24 04:40 09/26/24 04:40 Labs: Abnormal Lab Results - Last 24 Hours (Table) 09/27/24 09/27/24 09/27/24 Range/Units 12:13 17:19 20:29 POC Glucose (mg/dL) 194 H 181 H 223 H (70-110) mg/dL 09/28/24 Range/Units 06:27 POC Glucose (mg/dL) 146 H (70-110) mg/dL
--- NOTE | 2024-09-29 06:27 | P.PN ---
Subjective Progress Note Date: 09/27/24 Per medical H&P, "74-year-old male was brought in because he had a fall at the time they would not show to the patient is not visible patient denies a couple episode apparently patient had altered mental status patient is almost alert oriented x 3 when I evaluated the patient patient denied any UTI symptoms patient was complaining of generalized weakness. Patient does have leukocytosis without any evidence of infection at this time patient denied any cough. Patient blood sugars are high unknown what patient takes as patient does not know what she takes. Patient was discharged on 20 units of Lantus in month of February. Patient is hyponatremic and hyperkalemic." Progress note for 09/20/2024: Patient was seen at bedside today. Labs from today showed sodium 135, potassium 4.2, chloride 103, carbon dioxide 21.5, BUN 10.1, creatinine 0.7, glucose 163, hemoglobin A1c of 9.7. Vitals temperature of 98.2, pulse rate of 96, respiratory rate 19, blood pressure 135/74, O2 sat 98% on room air. Brain CT obtained last night showed no acute intracranial abnormality. Patient denies any acute complaints at this time. Patient denies any fever, chills, dizziness,, chest pain, shortness of breath/vomiting, belly pain. Patient was noted to have very big open wound on his right big toe with signs of necrosis. 09/21/2024 Patient is seen in follow-up this morning currently sitting up at the chair with multiple consultations following including vascular surgery and infectious disease. Wound care consulted and pending at this time. Vascular surgery with plans of angiogram on 09/22/2024. Patient will be n.p.o. at midnight and will await report. Follow-up with repeat labs and continue current local wound care. Jayro wraps not recommended on lower extremities. Patient is afebrile denies chest pain or shortness of breath. Patient reports intermittent pain of the lower extremities although controlled on current regimen. 09/22/2024 Patient was seen at bedside today. Patient underwent an angiogram earlier this morning. Per operative report, on the right, the takeoff of the AT is visualized and found to be severely calcified. On the left, the popliteal artery has mild to moderate calcific disease with some narrowing distally at the infrapopliteal segment. The anterior tibial artery is visualized at its takeoff with significant calcific disease throughout. Patient reported no complaints at this time. Denies any fever, chills, chest pain, shortness of breath, nausea/vomiting. Vascular surgery plan to take the patient for debridement on Friday. WBC 16.2, hemoglobin 12.5, hematocrit 39.2, platelets 273, neutrophils 14, sodium 134, potassium 4.3, glucose 127. 09/23/2024 Patient was seen at bedside today. WBC 17.33, hemoglobin 11.3, hematocrit 34.5, platelet 260, sodium 137, potassium 4.0, BUN 14.8, creatinine 0.7, glucose 130. Vitals temperature 97.9, pulse rate of 98, respiratory rate 18, blood pressure 109/65, O2 sat 99% on room air. Patient reports no acute complaints at this time. Vascular surgery plan to take patient for an angiogram and possibly amputation of the right big toe on Friday. 09/24/2024 Patient was seen at bedside today. Patient underwent an angiogram of right lower extremity this morning. Reports no complaints at this time. WBC 19.24, hemoglobin 10.7, hematocrit 34.8, platelet 306. BMP showed sodium 139, potassium 4.1, chloride 105, carbon dioxide 18, BUN 20, creatinine 0.77, glucose 114. Left foot wound culture showed positive for Enterobacter cloacae which is sensitive to the Zosyn patient is currently receiving. 09/25/2024 Patient was seen at bedside today. Reports no complaints at this time. Patient will undergo possible amputation on Friday by vascular surgery. WBC 14.3, hemoglobin 10.7, hematocrit 32.6, platelets 311, sodium 137, potassium 3.9, chloride 106, carbon dioxide 20, BUN 16, creatinine 0.67, glucose 127. 09/26 Patient currently sitting up on the bedside Both l feet and needs a dressing. He has mild pain which looks controlled Imaging reviewed: CT angio showing severe atrophic changes of aorta extending into branch vessels and most severe findings in the bilateral lower extremities below the knees. 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 June on 09/24/2024 Patient currently covered with IV Zosyn and normal saline 75 mL/h 09/27/2024 Patient is seen and evaluated in follow-up continues with sitter at the bedside as patient is impulsive and high risk for falls. Patient being followed by vascular surgery and is planning possible amputation of the great toe this week. Patient also being followed by infectious disease maintained on antibiotics and will continue. Patient was lethargic and recommend limiting narcotic use. Encouraged increase activity as tolerated and sitting up more frequently. 09/28/2024 Patient seen in follow-up much more awake today sitting up at the side of the bed with sitter for safety. Patient has been getting up with assistance and will continue current regimen. Recommend updated PT/OT therapy notes and discuss further with case management/social work regarding discharge planning. Per vascular surgery patient will likely require IV antibiotics and infectious diseases following. Patient will receive a PICC line and orders placed for today. Patient is afebrile with no reports of chest pain or shortness of breath. Patient reports to tolerating diet and will continue current regimen. Continue monitoring Accu-Cheks before meals and at bedtime. Continue local wound care. Review of systems: Constitutional: No reports of fatigue, fever, or chills Cardiovascular: No reports of chest pain or palpitations Respiratory: No reports of shortness of breath or cough GI: No reports of nausea, vomiting, or diarrhea : No reports of dysuria or retention Neurovascular: reports of generalized weakness, denies foot pain All medications have been reviewed Physical exam: Gen: This is a 74-year-old male who is awake, alert and oriented x 2, baseline, well-developed, elderly appearing, unkempt, obese HEENT: Head is atraumatic, normocephalic. Pupils equal, round. Sclerae is anicteric. NECK: Supple. No JVD. No lymphadenopathy. No thyromegaly. LUNGS: Diminished breath sounds bilaterally otherwise clear to auscultation. No wheezes or rhonchi. No intercostal retractions. HEART: S1, S2 are muffled ABDOMEN: Soft. Thin bowel sounds are present. No masses. No tenderness. EXTREMITIES: No pedal edema. No calf tenderness. Right lower extremity Jayro wrap applied with significant drainage that is dried noted on the dressing NEUROLOGICAL: Patient is awake, alert and oriented x2. Cranial nerves 2 through 12 are grossly intact. Diffusely weak Assessment: Fall, may be secondary to generalized weakness and dehydration Non-healing diabetic foot wounds, history of gangrene/osteomyelitis with previous toe amputation and debridement with Dr. June Peripheral artery disease. CT angio showing severe atrophic changes of aorta ext ending into branch vessels and most severe findings in the bilateral lower extremities below the knees. Leukocytosis possibly secondary to above avascular necrosis of the femoral head Hypovolemic hyponatremia, resolved Hyperkalemia with slight hemolysis, resolved Type 2 diabetes mellitus Generalized weakness GI prophylaxis DVT prophylaxis Full code Plan: Patient being followed by multiple consultations including infectious disease, vascular surgery, wound care Vascular surgery plan to take patient for a possible amputation of the right big toe on Friday with Dr. June. Patient will be n.p.o. at midnight and will await surgical report Will order PICC line as patient will require IV antibiotics on discharge per vascular and infectious disease Continue with Zosyn per ID recommendation. Monitor morning CBC and BMP Wound care recommended to continue with Santyl to bilateral lower extremities. Continue IV fluids at 75 cc an hour Continue with sliding scale insulin Await surgical report and discuss further with vascular surgery regarding discharge planning. Tentatively scheduled for amputation on the right of the toe and will possibly be cleared for discharge on to [facility]. Will discuss with case management regarding discharge planning Patient will need updated PT/OT therapy notes The impression and plan of care has been dictated by Gloria Shore, Nurse Practitioner as directed. Dr. Africa MD I have performed a history and examination and MDM of this patient, discussed the same with the dictator, and agree with the dictator's assessment and plan as written ,documented as a scribe. Based on total visit time, I have performed more than 50% of the visit. Objective - Vital Signs Vital signs: Vital Signs Temp 97.4 F L 09/28/24 07:51 Pulse 99 09/28/24 07:51 Resp 17 09/28/24 07:51 BP 145/67 09/28/24 07:51 Pulse Ox 99 09/28/24 07:51 FiO2 Intake & Output 09/27/24 09/28/24 09/28/24 18:59 06:59 18:59 Intake Total 442 1240 118 Balance 442 1240 118 Weight 117.48 kg Intake: Intake, IV Titration 1000 Amount Piperacillin-Tazobactam 3 100 .375 gm In Sodium Chloride 0.9% 100 ml @ 25 mls/hr IVPB Q8HR [facility] Rx# :[id number] Sodium Chloride 0.9% 1, 900 000 ml @ 75 mls/hr IV . [id number] [facility] Rx#:[id number] Oral 442 240 118 Other: Voiding Method Urinal Urinal Incontinent Incontinent # Voids 2 - Labs CBC & Chem 7: 09/26/24 04:40 09/26/24 04:40 Labs: Abnormal Lab Results - Last 24 Hours (Table) 09/27/24 09/27/24 09/28/24 Range/Units 17:19 20:29 06:27 POC Glucose (mg/dL) 181 H 223 H 146 H (70-110) mg/dL 09/28/24 Range/Units 12:05 POC Glucose (mg/dL) 391 H (70-110) mg/dL
[2024-09-29] MEDS ORDERED: HYDROmorphone 0.5 MG/0.5 ML SYRINGE IVP PRN (07:00)
[2024-09-29 07:21] LABS: ALT 25 U/L (4-49); AST 42 U/L (17-59); African American GFR (CKD) >90 (>60 ml/min/1.73 sqM); Albumin 2.8 g/dL (3.5-5.0); Albumin/Globulin Ratio 0.7; Alkaline Phosphatase 113 U/L (38-126); Anion Gap 12 mmol/L; Blood Urea Nitrogen 10 mg/dL (9-20); Calcium 8.5 mg/dL (8.4-10.2); Carbon Dioxide 20 mmol/L (22-30); Chloride 103 mmol/L (98-107); Glucose 97 mg/dL (74-99); Non-African American GFR(CKD) >90 (>60 ml/min/1.73 sqM); Potassium 3.8 mmol/L (3.5-5.1); Sodium 135 mmol/L (137-145); Total Bilirubin 0.7 mg/dL (0.2-1.3); Total Protein 6.8 g/dL (6.3-8.2)
[2024-09-29 07:27] LABS: Basophils % (A) 0 %; Eosinophils # (A) 0.1 k/uL (0-0.7); Eosinophils % (A) 1 %; HCT 33.5 % (39.0-53.0); HGB 10.8 gm/dL (13.0-17.5); Lymphocytes # (A) 1.3 k/uL (1.0-4.8); Lymphocytes % (A) 7 %; MCHC 32.4 g/dL (31.0-37.0); MCV 95.7 fL (80.0-100.0); Mean Platelet Volume 8.8; Monocytes % (A) 6 %; Neutrophils # (A) 15.1 k/uL (1.3-7.7); Neutrophils % (A) 85 %; Platelet Count 359 k/uL (150-450); RDW 12.4 % (11.5-15.5); WBC 17.8 k/uL (3.8-10.6)
--- NOTE | 2024-09-29 08:07 | P.PN ---
Subjective Progress Note Date: 09/27/24 Principal diagnosis: Reason for follow-up is bilateral diabetic foot ulcer cellulitis Patient is a 74-year-old male with a past medical history significant for diabetes mellitus GI bleed diabetic foot ulcer in this patient did have a left fourth and fifth toe amputation and debridement with a chronic nonhealing wound to the left foot admitted to hospital with a syncopal episode and patient also noticed to have a necrotic wound to the right big toe. On today's evaluation that is 09/27/2023, patient has been afebrile, patient is breathing comfortably and is currently on room air, patient denies having any significant cough no chest pain, patient denies nausea vomiting or diarrhea and no abdominal pain, denies any worsening pain to the lower extremity wound area. Patient did not have lab draw today Objective - Vital Signs Vital signs: Vital Signs Temp 97.6 F 09/27/24 07:42 Pulse 90 09/27/24 07:42 Resp 16 09/27/24 07:42 BP 153/67 09/27/24 07:42 Pulse Ox 99 09/27/24 07:42 FiO2 Intake & Output 09/26/24 09/27/24 09/27/24 18:59 06:59 18:59 Intake Total 118 221 Output Total 400 Balance 118 -400 221 Intake: Oral 118 221 Output: Urine 400 Other: Voiding Method Urinal Incontinent # Voids 3 # Bowel Movements 1 - Exam GENERAL DESCRIPTION: An elderly male lying in bed in no distress RESPIRATORY SYSTEM: Unlabored breathing , decreased breath sounds at bases HEART: S1 S2 regular rate and rhythm , ABDOMEN: Soft , no tenderness EXTREMITIES: Bilateral feet were currently dressed - Labs CBC & Chem 7: 09/29/24 06:00 09/29/24 06:00 Labs: Abnormal Lab Results - Last 24 Hours (Table) 09/26/24 09/26/24 09/26/24 Range/Units 04:40 12:16 17:11 Anion Gap 12.10 H (4.00-12.00) mmol/L Glucose 122 H (70-110) mg/dL POC Glucose (mg/dL) 168 H 176 H (70-110) mg/dL Calcium 8.2 L (8.7-10.3) mg/dL 09/27/24 Range/Units 06:06 Anion Gap (4.00-12.00) mmol/L Glucose (70-110) mg/dL POC Glucose (mg/dL) 112 H (70-110) mg/dL Calcium (8.7-10.3) mg/dL Assessment and Plan (1) Diabetic gangrene Current Visit: No Status: Acute Code(s): E11.52 - TYPE 2 DIABETES W DIABETIC PERIPHERAL ANGIOPATHY W GANGRENE SNOMED Code(s): 328595068 (2) Diabetic infection of left foot Current Visit: No Status: Acute Code(s): E11.628 - TYPE 2 DIABETES MELLITUS WITH OTHER SKIN COMPLICATIONS; L08.9 - LOCAL INFECTION OF THE SKIN AND SUBCUTAN EOUS TISSUE, UNSP SNOMED Code(s): 524926816 (3) Non-pressure chronic ulcer of other part of left foot with fat layer exposed Current Visit: No Status: Acute Code(s): L97.522 - NON-PRS CHRONIC ULCER OTH PRT LEFT FOOT W FAT LAYER EXPOSED SNOMED Code(s): 27087496705806690 Plan: 1patient with right big toe diabetic foot with a necrotic wound and evidence of secondary cellulitis will need to cover for the polymicrobial mariano associated with diabetic foot infection 2-patient also have a nonhealing wound on the left foot lateral border postdilatation of the left fourth and fifth toe but no significant purulent drainage was noticed from the site 3- vascular surgery has evaluated the patient and has ordered an angiogram, did have angioplasty completed 09/24/2024 4-local culture has been finalized with the Enterobacter, actinomyces and bacteroids 5patient currently considered for possible right middle and amputation as per discussion with the vascular surgeon HEALTH INFORMATION MANAGER will continue with the Marisol Dictation was produced using [employer] dictation software. please excuse any grammatical, word or spelling errors. Time with Patient: Less than 30
--- NOTE | 2024-09-29 08:08 | P.PN ---
Subjective Progress Note Date: 09/28/24 Principal diagnosis: Reason for follow-up is bilateral diabetic foot ulcer cellulitis Patient is a 74-year-old male with a past medical history significant for diabetes mellitus GI bleed diabetic foot ulcer in this patient did have a left fourth and fifth toe amputation and debridement with a chronic nonhealing wound to the left foot admitted to hospital with a syncopal episode and patient also noticed to have a necrotic wound to the right big toe. On today's evaluation that is 09/28/2023, Patient is afebrile this morning patient denies having any chest pain shortness of breath or cough, the patient is currently on room air, patient denies any abdominal pain no diarrhea no nausea no vomiting, patient pain to the bilateral feet area is currently controlled. No new labs has been obtained today Objective - Vital Signs Vital signs: Vital Signs Temp 97.4 F L 09/28/24 07:51 Pulse 99 09/28/24 07:51 Resp 17 09/28/24 07:51 BP 145/67 09/28/24 07:51 Pulse Ox 99 09/28/24 07:51 FiO2 Intake & Output 09/27/24 09/28/24 09/28/24 18:59 06:59 18:59 Intake Total 442 1240 118 Balance 442 1240 118 Weight 117.48 kg Intake: Intake, IV Titration 1000 Amount Piperacillin-Tazobactam 3 100 .375 gm In Sodium Chloride 0.9% 100 ml @ 25 mls/hr IVPB Q8HR [facility] Rx# :[id number] Sodium Chloride 0.9% 1, 900 000 ml @ 75 mls/hr IV . [id number] [facility] Rx#:[id number] Oral 442 240 118 Other: Voiding Method Urinal Urinal Incontinent Incontinent # Voids 2 - Exam GENERAL DESCRIPTION: An elderly male lying in bed in no distress RESPIRATORY SYSTEM: Unlabored breathing , decreased breath sounds at bases HEART: S1 S2 regular rate and rhythm , ABDOMEN: Soft , no tenderness EXTREMITIES: Bilateral feet were currently dressed - Labs CBC & Chem 7: 09/29/24 06:00 09/29/24 06:00 Labs: Abnormal Lab Results - Last 24 Hours (Table) 09/27/24 09/27/24 09/27/24 Range/Units 12:13 17:19 20:29 POC Glucose (mg/dL) 194 H 181 H 223 H (70-110) mg/dL 09/28/24 Range/Units 06:27 POC Glucose (mg/dL) 146 H (70-110) mg/dL Assessment and Plan (1) Diabetic gangrene Current Visit: No Status: Acute Code(s): E11.52 - TYPE 2 DIABETES W DIABETIC PERIPHERAL ANGIOPATHY W GANGRENE SNOMED Code(s): 166380223 (2) Diabetic infection of left foot Current Visit: No Status: Acute Code(s): E11.628 - TYPE 2 DIABETES MELLITUS WITH OTHER SKIN COMPLICATIONS; L08.9 - LOCAL INFECTION OF THE SKIN AND SUBCUTANEOUS TISSUE, UNSP SNOMED Code(s): 089117766 (3) Non-pressure chronic ulcer of other part of left foot with fat layer exposed Current Visit: No Status: Acute Code(s): L97.522 - NON-PRS CHRONIC ULCER OTH PRT LEFT FOOT W FAT LAYER EXPOSED SNOMED Code(s): 85883724312892195 Plan: 1patient with right big toe diabetic foot with a necrotic wound and evidence of secondary cellulitis will need to cover for the polymicrobial mariano associated with diabetic foot infection 2-patient also have a nonhealing wound on the left foot lateral border postdilatation of the left fourth and fifth toe but no significant purulent drainage was noticed from the site 3- vascular surgery has evaluated the patient and has ordered an angiogram, did have angioplasty completed 09/24/2024 4-local culture has been finalized with the Enterobacter, actinomyces and bacteroids 5patient currently waiting for intervention to the right lower extremity scheduled for tomorrow with multiple pathogen from his left foot wound site patient will get a PICC line and will covered with Zosyn Dictation was produced using [employer] software. please excuse any grammatical, word or spelling errors. Time with Patient: Less than 30
[2024-09-29 12:09] LABS: Glucose,Whole Blood 90 mg/dL (70-110)
[2024-09-29] MEDS: IV FLUID CONTINUATION 1,000 ML IV ONE (14:00)
[2024-09-29 14:17] LABS: Glucose,Whole Blood 110 mg/dL (70-110)
[2024-09-29] MEDS: ONDANSETRON 4 MG/2 ML VIAL IVP ONE (14:21)
[2024-09-29] MEDS: DEXAMETHASONE SOD PHOSPHATE 4 MG/ML 1 ML VIAL IV ONE (14:22)
[2024-09-29] MEDS ORDERED: SUCCINYLCHOLINE CHLORIDE 200 MG/10 ML VIAL IV ONE (14:55)
[2024-09-29] MEDS ORDERED: PROPOFOL 10 MG/ML 20 ML VIAL IV ONE (14:55)
[2024-09-29] MEDS ORDERED: HYDROmorphone (PF) 1 MG/ML ONE (14:55)
[2024-09-29] MEDS ORDERED: fentaNYL (PF) 50 MCG/ML 2 ML AMP ONE (14:55)
[2024-09-29] MEDS ORDERED: LIDOCAINE 1% INJ 10MG/ML (20 ML MDV) ONE (14:55)
[2024-09-29] MEDS ORDERED: MIDAZOLAM 2 MG/2 ML VIAL ONE (14:55)
[2024-09-29] MEDS: LACTATED RINGERS 1,000 ML IV SCH (14:55)
--- NOTE | 2024-09-29 15:46 | P.PN ---
Subjective Progress Note Date: 09/29/24 Per medical H&P, "74-year-old male was brought in because he had a fall at the time they would n ot show to the patient is not visible patient denies a couple episode apparently patient had altered mental status patient is almost alert oriented x 3 when I evaluated the patient patient denied any UTI symptoms patient was complaining of generalized weakness. Patient does have leukocytosis without any evidence of infection at this time patient denied any cough. Patient blood sugars are high unknown what patient takes as patient does not know what she takes. Patient was discharged on 20 units of Lantus in month of February. Patient is hyponatremic and hyperkalemic." Progress note for 09/20/2024: Patient was seen at bedside today. Labs from today showed sodium 135, potassium 4.2, chloride 103, carbon dioxide 21.5, BUN 10.1, creatinine 0.7, glucose 163, hemoglobin A1c of 9.7. Vitals temperature of 98.2, pulse rate of 96, respiratory rate 19, blood pressure 135/74, O2 sat 98% on room air. Brain CT obtained last night showed no acute intracranial abnormality. Patient denies any acute complaints at this time. Patient denies any fever, chills, dizziness,, chest pain, shortness of breath/vomiting, belly pain. Patient was noted to have very big open wound on his right big toe with signs of necrosis. 09/21/2024 Patient is seen in follow-up this morning currently sitting up at the chair with multiple consultations following including vascular surgery and infectious dis ease. Wound care consulted and pending at this time. Vascular surgery with plans of angiogram on 09/22/2024. Patient will be n.p.o. at midnight and will await report. Follow-up with repeat labs and continue current local wound care. Jayro wraps not recommended on lower extremities. Patient is afebrile denies chest pain or shortness of breath. Patient reports intermittent pain of the lower extremities although controlled on current regimen. 09/22/2024 Patient was seen at bedside today. Patient underwent an angiogram earlier this morning. Per operative report, on the right, the takeoff of the AT is visualized and found to be severely calcified. On the left, the popliteal artery has mild to moderate calcific disease with some narrowing distally at the infrapopliteal segment. The anterior tibial artery is visualized at its takeoff with significant calcific disease throughout. Patient reported no complaints at this time. Denies any fever, chills, chest pain, shortness of breath, na usea/vomiting. Vascular surgery plan to take the patient for debridement on Friday. WBC 16.2, hemoglobin 12.5, hematocrit 39.2, platelets 273, neutrophils 14, sodium 134, potassium 4.3, glucose 127. 09/23/2024 Patient was seen at bedside today. WBC 17.33, hemoglobin 11.3, hematocrit 34.5, platelet 260, sodium 137, potassium 4.0, BUN 14.8, creatinine 0.7, glucose 130. Vitals temperature 97.9, pulse rate of 98, respiratory rate 18, blood pressure 109/65, O2 sat 99% on room air. Patient reports no acute complaints at this time. Vascular surgery plan to take patient for an angiogram and possibly amputation of the right big toe on Friday. 09/24/2024 Patient was seen at bedside today. Patient underwent an angiogram of right lower extremity this morning. Reports no complaints at this time. WBC 19.24, hemoglobin 10.7, hematocrit 34.8, platelet 306. BMP showed sodium 139, potassium 4.1, chloride 105, carbon dioxide 18, BUN 20, creatinine 0.77, glucose 114. Left foot wound culture showed positive for Enterobacter cloacae which is sensitive to the Zosyn patient is currently receiving. 09/25/2024 Patient was seen at bedside today. Reports no complaints at this time. Patient will undergo possible amputation on Friday by vascular surgery. WBC 14.3, hemoglobin 10.7, hematocrit 32.6, platelets 311, sodium 137, potassium 3.9, chloride 106, carbon dioxide 20, BUN 16, creatinine 0.67, glucose 127. 09/26 Patient currently sitting up on the bedside Both l feet and needs a dressing. He has mild pain which looks controlled Imaging reviewed: CT angio showing severe atrophic changes of aorta extending into branch vessels and most severe findings in the bilateral lower extremities below the knees. 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 uJne on 09/24/2024 Patient currently covered with IV Zosyn and normal saline 75 mL/h 09/27/2024 Patient is seen and evaluated in follow-up continues with sitter at the bedside as patient is impulsive and high risk for falls. Patient being followed by vascular surgery and is planning possible amputation of the great toe this week. Patient also being followed by infectious disease maintained on antibiotics and will continue. Patient was lethargic and recommend limiting narcotic use. Encouraged increase activity as tolerated and sitting up more frequently. 09/28/2024 Patient seen in follow-up much more awake today sitting up at the side of the bed with sitter for safety. Patient has been getting up with assistance and will continue current regimen. Recommend updated PT/OT therapy notes and discuss further with case management/social work regarding discharge planning. Per vascular surgery patient will likely require IV antibiotics and infectious diseases following. Patient will receive a PICC line and orders placed for today. Patient is afebrile with no reports of chest pain or shortness of breath. Patient reports to tolerating diet and will continue current regimen. Continue monitoring Accu-Cheks before meals and at bedtime. Continue local wound care. 09/29/2024 Patient was seen at bedside today. Reports no acute complaints at this time. Patient will undergo amputation of right big toe this afternoon. WBC 5.26, hemoglobin 7.4, hematocrit 23.8, platelet 222, sodium 137, potassium 3.9, chloride 105, carbon dioxide 25.8, BUN 9.8, creatinine 0.6, glucose 95 Review of Systems Constitutional: Denies chills, Denies fever Eyes: denies blurred vision, double vision or pain Ears, nose, mouth and throat: Denies headache, Denies sore throat Cardiovascular: Denies chest pain, Denies shortness of breath Respiratory: Denies cough Gastrointestinal: Denies abdominal pain, Denies diarrhea, Denies nausea, Denies vomiting Musculoskeletal: Denies myalgias Integumentary: Denies pruritus, Denies rash Neurological: Denies numbness, Denies weakness Psychiatric: Denies anxiety, Denies depression Endocrine: Denies fatigue, Denies weight change Physical exam: Gen: This is a 74-year-old male who is awake, alert and oriented x 2, baseline, well-developed, elderly appearing, unkempt, obese HEENT: Head is atraumatic, normocephalic. Pupils equal, round. Sclerae is anicteric. NECK: Supple. No JVD. No lymphadenopathy. No thyromegaly. LUNGS: Diminished breath sounds bilaterally otherwise clear to auscultation. No wheezes or rhonchi. No intercostal retractions. HEART: S1, S2 are muffled ABDOMEN: Soft. Thin bowel sounds are present. No masses. No tenderness. EXTREMITIES: No pedal edema. No calf tenderness. Right lower extremity Jayro wrap applied with significant drainage that is dried noted on the dressing NEUROLOGICAL: Patient is awake, alert and oriented x2. Cranial nerves 2 through 12 are grossly intact. Diffusely weak Assessment: Fall, may be secondary to generalized weakness and dehydration Non-healing diabetic foot wounds, history of gangrene/osteomyelitis with previous toe amputation and debridement with Dr. June Peripheral artery disease. CT angio showing severe atrophic changes of aorta extending into branch vessels and most severe findings in the bilateral lower extremities below the knees. Leukocytosis possibly secondary to above avascular necrosis of the femoral head Hypovolemic hyponatremia, resolved Hyperkalemia with slight hemolysis, resolved Type 2 diabetes mellitus Generalized weakness GI prophylaxis DVT prophylaxis Full code Plan: Patient being followed by multiple consultations including infectious disease, vascular surgery, wound care Vascular surgery plan to take patient for amputation of right big toe this afternoon PICC line has been inserted on 09/28/2024 Continue with Zosyn per ID recommendation. Monitor morning CBC and BMP Wound care recommended to continue with Santyl to bilateral lower extremities. Continue IV fluids at 75 cc an hour Continue with sliding scale insulin Scheduled for amputation of right big toe today afternoon and will possibly be cleared from vascular surgery to be discharged to [facility] on . Patient will need updated PT/OT therapy notes Objective - Vital Signs Vital signs: Vital Signs Temp 98.5 F 09/29/24 14:08 Pulse 98 09/29/24 14:08 Resp 16 09/29/24 14:08 BP 153/74 09/29/24 14:08 Pulse Ox 98 09/29/24 14:08 FiO2 Intake & Output 09/28/24 09/29/24 09/29/24 18:59 06:59 18:59 Intake Total 716 780 400 Output Total 900 1600 505 Balance -184 -820 -105 Intake: IV 400 Oral 716 780 Output: Urine 900 1600 500 Estimated Blood Loss 5 Other: Voiding Method Urinal Incontinent Incontinent Incontinent External Catheter External Catheter - Labs CBC & Chem 7: 09/29/24 06:00 09/29/24 06:00 Labs: Abnormal Lab Results - Last 24 Hours (Table) 09/28/24 09/29/24 09/29/24 Range/Units 20:38 06:00 06:00 WBC 17.8 H (3.8-10.6) k/uL RBC 3.50 L (4.30-5.90) m/uL Hgb 10.8 L (13.0-17.5) gm/dL Hct 33.5 L (39.0-53.0) % Neutrophils # 15.1 H (1.3-7.7) k/uL Sodium 135 L (137-145) mmol/L Carbon Dioxide 20 L (22-30) mmol/L Creatinine 0.60 L (0.66-1.25) mg/dL POC Glucose (mg/dL) 115 H (70-110) mg/dL Albumin 2.8 L (3.5-5.0) g/dL
[2024-09-29 16:31] LABS: Glucose,Whole Blood 94 mg/dL (70-110)
--- NOTE | 2024-09-29 16:34 | P.OP ---
Date of Procedure: 09/29/24 Description of Procedure: SURGEON: Halina June DO AUT[employer] DESIGN DETAILER: None PREOPERATIVE DIAGNOSIS: Gangrene right great toe. POSTOPERATIVE DIAGNOSIS: Same, purulence in the midfoot. OPERATION: Right great toe ray amputation ANESTHESIA: General LMA ESTIMATED BLOOD LOSS: 5 cc SPECIMENS REMOVED: Right great toe, culture COMPLICATIONS: None OPERATIVE FINDINGS: Patient is a 74-year-old male with severe peripheral vascular disease who underwent revascularization recently of his tibial vessels. He has continued discoloration and worsening of his toe therefore he is recommended undergo amputation. Risk and benefits were discussed. He seemingly understood and was going to proceed. DESCRIPTION OF PROCEDURE: This patient was brought to the operating room, LMA anesthesia was initiated.. The operative foot was prepped and draped in sterile manner. An incision was made at the base of the great toe deep into skin and fascia on plantar and dorsal aspect until we reached the head of the metatarsal bone.The head of the metatarsal was from the first toe The tendons were divided in plantar and dorsal aspects. The fifth toe was removed. There were minimal bleeding points which were electrocoagulated and some of them were suture ligated. At the base of the wound, there appeared to be purulent dr glenny. Blunt dissection was performed showing the tracking tunneled to the midfoot. A counterincision was made at the plantar portion on the medial side. Cultures were taken. The wound was copiously irrigated with saline. Once the devitalized tissue was removed and the bone was smoothed with rasp, the area was then again irrigated. Dakin's wet-to-dry dressings were placed. Dressings were placed and the patient was allowed awaken and transferred to recovery in stable condition. It is likely the patient will end up needing a below-knee versus above knee amputation due to the extent of the wound and difficulty in healing however it does not emergent at this time. He may be discharged with nonweightbearing status of the right lower extremity if cleared by other consultants and follow- up with me as an outpatient in the office for continued discussion. This was all discussed with his significant other Nan at the conclusion of the procedure.
[2024-09-29 17:26] LABS: Glucose,Whole Blood 88 mg/dL (70-110)
[2024-09-29 20:14] LABS: Glucose,Whole Blood 95 mg/dL (70-110)
[2024-09-30] MEDS: IBUPROFEN 400 MG TAB PO PRN (03:52)
[2024-09-30 06:14] LABS: Glucose,Whole Blood 197 mg/dL (70-110)
[2024-09-30] MEDS: RIVAROXABAN 2.5 MG TABLET PO SCH (09:05)
--- NOTE | 2024-09-30 09:50 | P.PN ---
Subjective Progress Note Date: 09/30/24 Patient is seen and examined today as a follow-up. He is postop day #1 for right great toe amputation. He states his pain is well-controlled. He is afebrile. Deep tissue cultures currently pending. He is afebrile. Plan is for discharge to subacute rehab, tentative plan for Carmen.. Objective - Vital Signs Vital signs: Vital Signs Temp 98.0 F 09/30/24 07:20 Pulse 87 09/30/24 07:20 Resp 17 09/30/24 07:20 BP 117/61 09/30/24 07:20 Pulse Ox 97 09/30/24 07:20 FiO2 Intake & Output 09/29/24 09/30/24 09/30/24 18:59 06:59 18:59 Intake Total 500 Output Total 1005 900 Balance -505 -900 Intake: IV 500 Output: Urine 1000 900 Estimated Blood Loss 5 Other: Voiding Method Incontinent Incontinent External Catheter External Catheter - Exam General appearance: The patient is alert, oriented, appears in no acute distr ess. HET: Head is normocephalic and atraumatic. Pupils are equal and reactive. Neck: Supple. Abdomen: Soft, nontender, nondistended. Extremities: Left foot with dressing clean dry and intact. Right foot with dressing clean dry and intact. Neurological: Alert and oriented. - Labs CBC & Chem 7: 09/29/24 06:00 09/29/24 06:00 Labs: Abnormal Lab Results - Last 24 Hours (Table) 09/30/24 Range/Units 06:13 POC Glucose (mg/dL) 197 H (70-110) mg/dL Assessment and Plan Assessment: 1. Gangrene right great toe status post amputation 2. 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 Right foot cellulitis 4. Diabetes mellitus 5. History of left toe infection status post amputation 6. Smoker Plan: 1. Continue with antibiotic recommendations from infectious disease 2. Continue with local wound care per recommendations from wound clinic 3. Daily dressing change to right great toe amputation site with Dakin's wet-to-dry solution 4. Discontinue Plavix. Continue aspirin 81 mg daily and will add Xarelto 2.5 mg twice daily 5. Consistent carbohydrate diet 6. Nonweightbearing to right lower extremity 7. Consult PT/OT for reevaluation postsurgery 8. Recommend smoking cessation, continue with nicotine patch 9. Patient is cleared from vascular surgery for discharge. Follow-up with Dr. June in 1 to 2 weeks. Thank you for this consultation, we will continue to follow. The impression and plan of care has been dictated as directed. Dr. June I performed a history and examination of this patient, discussed the same with the dictator. I agree with the dictator's note ,documented as a scribe. Any additional findings or plans will be noted.
[2024-09-30 10:37] LABS: BUN/Creat Ratio 21.57 Ratio (12.00-20.00); Blood Urea Nitrogen 15.1 mg/dL (9.0-27.0); Glucose 179 mg/dL (70-110)
[2024-09-30 10:38] LABS: Calcium 7.9 mg/dL (8.7-10.3); Carbon Dioxide 18.4 mmol/L (21.6-31.8); Chloride 104 mmol/L (96-109); Potassium 4.1 mmol/L (3.5-5.5); Sodium 136 mmol/L (135-145)
[2024-09-30 10:51] LABS: Basophils # (A) 0.05 X 10*3/uL (0.00-0.10); Basophils % (A) 0.2 %; Eosinophils # (A) 0.01 X 10*3/uL (0.04-0.35); Eosinophils % (A) 0 %; HCT 30.4 % (39.6-50.0); HGB 9.9 g/dL (13.0-17.0); Lymphocytes # (A) 1.57 X 10*3/uL (0.90-5.00); Lymphocytes % (A) 7.6 %; MCH 31.6 pg (27.0-32.0); MCHC 32.6 g/dL (32.0-37.0); MCV 97.1 FL (80.0-97.0); Mean Platelet Volume 10.5 FL (9.5-12.2); Monocytes # (A) 1.34 X 10*3/uL (0.20-1.00); Monocytes % (A) 6.5 %; NRBC Per 100 WBC 0 X 10*3/uL (0.00-0.01); Neutrophils # (A) 17.25 X 10*3/uL (1.80-7.70); Platelet Count 302 X 10*3/uL (140-440); RBC 3.13 X 10*6/uL (4.40-5.60); RDW 12.1 % (11.5-14.5); WBC 20.58 X 10*3/uL (4.50-10.00)
[2024-09-30] MEDS: HYDROmorphone 1 MG/ML 1 ML SYRINGE IVP STA (11:04)
[2024-09-30] MEDS: SODIUM HYPOCHLORITE 0.5% 480 ML BOT MISCELLANE SCH (11:06)
[2024-09-30 12:06] LABS: Glucose,Whole Blood 160 mg/dL (70-110)
--- NOTE | 2024-09-30 14:21 | P.PN ---
Subjective Progress Note Date: 09/30/24 Per medical H&P, "74-year-old male was brought in because he had a fall at the time they would n ot show to the patient is not visible patient denies a couple episode apparently patient had altered mental status patient is almost alert oriented x 3 when I evaluated the patient patient denied any UTI symptoms patient was complaining of generalized weakness. Patient does have leukocytosis without any evidence of infection at this time patient denied any cough. Patient blood sugars are high unknown what patient takes as patient does not know what she takes. Patient was discharged on 20 units of Lantus in month of February. Patient is hyponatremic and hyperkalemic." Progress note for 09/20/2024: Patient was seen at bedside today. Labs from today showed sodium 135, potassium 4.2, chloride 103, carbon dioxide 21.5, BUN 10.1, creatinine 0.7, glucose 163, hemoglobin A1c of 9.7. Vitals temperature of 98.2, pulse rate of 96, respiratory rate 19, blood pressure 135/74, O2 sat 98% on room air. Brain CT obtained last night showed no acute intracranial abnormality. Patient denies any acute complaints at this time. Patient denies any fever, chills, dizziness,, chest pain, shortness of breath/vomiting, belly pain. Patient was noted to have very big open wound on his right big toe with signs of necrosis. 09/21/2024 Patient is seen in follow-up this morning currently sitting up at the chair with multiple consultations following including vascular surgery and infectious dis ease. Wound care consulted and pending at this time. Vascular surgery with plans of angiogram on 09/22/2024. Patient will be n.p.o. at midnight and will await report. Follow-up with repeat labs and continue current local wound care. Jayro wraps not recommended on lower extremities. Patient is afebrile denies chest pain or shortness of breath. Patient reports intermittent pain of the lower extremities although controlled on current regimen. 09/22/2024 Patient was seen at bedside today. Patient underwent an angiogram earlier this morning. Per operative report, on the right, the takeoff of the AT is visualized and found to be severely calcified. On the left, the popliteal artery has mild to moderate calcific disease with some narrowing distally at the infrapopliteal segment. The anterior tibial artery is visualized at its takeoff with significant calcific disease throughout. Patient reported no complaints at this time. Denies any fever, chills, chest pain, shortness of breath, na usea/vomiting. Vascular surgery plan to take the patient for debridement on Friday. WBC 16.2, hemoglobin 12.5, hematocrit 39.2, platelets 273, neutrophils 14, sodium 134, potassium 4.3, glucose 127. 09/23/2024 Patient was seen at bedside today. WBC 17.33, hemoglobin 11.3, hematocrit 34.5, platelet 260, sodium 137, potassium 4.0, BUN 14.8, creatinine 0.7, glucose 130. Vitals temperature 97.9, pulse rate of 98, respiratory rate 18, blood pressure 109/65, O2 sat 99% on room air. Patient reports no acute complaints at this time. Vascular surgery plan to take patient for an angiogram and possibly amputation of the right big toe on Friday. 09/24/2024 Patient was seen at bedside today. Patient underwent an angiogram of right lower extremity this morning. Reports no complaints at this time. WBC 19.24, hemoglobin 10.7, hematocrit 34.8, platelet 306. BMP showed sodium 139, potassium 4.1, chloride 105, carbon dioxide 18, BUN 20, creatinine 0.77, glucose 114. Left foot wound culture showed positive for Enterobacter cloacae which is sensitive to the Zosyn patient is currently receiving. 09/25/2024 Patient was seen at bedside today. Reports no complaints at this time. Patient will undergo possible amputation on Friday by vascular surgery. WBC 14.3, hemoglobin 10.7, hematocrit 32.6, platelets 311, sodium 137, potassium 3.9, chloride 106, carbon dioxide 20, BUN 16, creatinine 0.67, glucose 127. 09/26 Patient currently sitting up on the bedside Both l feet and needs a dressing. He has mild pain which looks controlled Imaging reviewed: CT angio showing severe atrophic changes of aorta extending into branch vessels and most severe findings in the bilateral lower extremities below the knees. 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 June on 09/24/2024 Patient currently covered with IV Zosyn and normal saline 75 mL/h 09/27/2024 Patient is seen and evaluated in follow-up continues with sitter at the bedside as patient is impulsive and high risk for falls. Patient being followed by vascular surgery and is planning possible amputation of the great toe this week. Patient also being followed by infectious disease maintained on antibiotics and will continue. Patient was lethargic and recommend limiting narcotic use. Encouraged increase activity as tolerated and sitting up more frequently. 09/28/2024 Patient seen in follow-up much more awake today sitting up at the side of the bed with sitter for safety. Patient has been getting up with assistance and will continue current regimen. Recommend updated PT/OT therapy notes and discuss further with case management/social work regarding discharge planning. Per vascular surgery patient will likely require IV antibiotics and infectious diseases following. Patient will receive a PICC line and orders placed for today. Patient is afebrile with no reports of chest pain or shortness of breath. Patient reports to tolerating diet and will continue current regimen. Continue monitoring Accu-Cheks before meals and at bedtime. Continue local wound care. 09/29/2024 Patient was seen at bedside today. Reports no acute complaints at this time. Patient will undergo amputation of right big toe this afternoon. WBC 5.26, hemoglobin 7.4, hematocrit 23.8, platelet 222, sodium 137, potassium 3.9, chloride 105, carbon dioxide 25.8, BUN 9.8, creatinine 0.6, glucose 95 09/30/2024 Patient was seen at bedside today. He underwent an amputation of right big toe yesterday afternoon. He denies any acute complaints at this time. Vascular surgery has cleared him for discharge and the plan is to follow-up with Dr. Boyd cox in 1 to 2 weeks after discharge. Patient is currently pending placement at [facility] rehab. Review of Systems Constitutional: Denies chills, Denies fever Eyes: denies blurred vision, double vision or pain Ears, nose, mouth and throat: Denies headache, Denies sore throat Cardiovascular: Denies chest pain, Denies shortness of breath Respiratory: Denies cough Gastrointestinal: Denies abdominal pain, Denies diarrhea, Denies nausea, Denies vomiting Musculoskeletal: Denies myalgias Integumentary: Denies pruritus, Denies rash Neurological: Denies numbness, Denies weakness Psychiatric: Denies anxiety, Denies depression Endocrine: Denies fatigue, Denies weight change Physical exam: Gen: This is a 74-year-old male who is awake, alert and oriented x 2, baseline, well-developed, elderly appearing, unkempt, obese HEENT: Head is atraumatic, normocephalic. Pupils equal, round. Sclerae is anicteric. NECK: Supple. No JVD. No lymphadenopathy. No thyromegaly. LUNGS: Diminished breath sounds bilaterally otherwise clear to auscultation. No wheezes or rhonchi. No intercostal retractions. HEART: S1, S2 are muffled ABDOMEN: Soft. Thin bowel sounds are present. No masses. No tenderness. EXTREMITIES: No pedal edema. No calf tenderness. Right lower extremity Jayro wrap applied with significant drainage that is dried noted on the dressing NEUROLOGICAL: Patient is awake, alert and oriented x2. Cranial nerves 2 through 12 are grossly intact. Diffusely weak Assessment: Fall, may be secondary to generalized weakness and dehydration Non-healing diabetic foot wounds, history of gangrene/osteomyelitis with previous toe amputation and debridement with Dr. June Peripheral artery disease. CT angio showing severe atrophic changes of aorta extending into branch vessels and most severe findings in the bilateral lower extremities below the knees. Leukocytosis possibly secondary to above avascular necrosis of the femoral head Hypovolemic hyponatremia, resolved Hyperkalemia with slight hemolysis, resolved Type 2 diabetes mellitus Generalized weakness GI prophylaxis DVT prophylaxis Full code Plan: Patient being followed by multiple consultations including infectious disease, vascular surgery, wound care Pending placement approval from [facility], plan to discharge tomorrow Underwent amputation of right big toe yesterday afternoon by vascular surgery Vascular surgery has cleared him for discharge and plan is to follow-up with Dr. June 1 to 2 weeks outpatient after discharge PICC line has been inserted on 09/28/2024 Continue with Zosyn per ID recommendation. Monitor morning CBC and BMP Wound care recommended to continue with Santyl to bilateral lower extremities. Continue IV fluids at 75 cc an hour Continue with sliding scale insulin Objective - Vital Signs Vital signs: Vital Signs Temp 98.0 F 09/30/24 07:20 Pulse 87 09/30/24 07:20 Resp 17 09/30/24 07:20 BP 117/61 09/30/24 07:20 Pulse Ox 97 09/30/24 07:20 FiO2 Intake & Output 09/29/24 09/30/24 09/30/24 18:59 06:59 18:59 Intake Total 500 Output Total 1005 900 Balance -505 -900 Intake: IV 500 Output: Urine 1000 900 Estimated Blood Loss 5 Other: Voiding Method Incontinent Incontinent External Catheter External Catheter - Labs CBC & Chem 7: 09/30/24 06:39 09/30/24 06:39 Labs: Abnormal Lab Results - Last 24 Hours (Table) 09/30/24 09/30/24 09/30/24 Range/Units 06:13 06:39 06:39 WBC 20.58 H (4.50-10.00) X 10*3/uL RBC 3.13 L (4.40-5.60) X 10*6/uL Hgb 9.9 L (13.0-17.0) g/dL Hct 30.4 L (39.6-50.0) % MCV 97.1 H (80.0-97.0) FL Immature Gran # 0.36 H (0.00-0.04) X 10*3/uL Neutrophils # 17.25 H (1.80-7.70) X 10*3/uL Monocytes # 1.34 H (0.20-1.00) X 10*3/uL Eosinophils # 0.01 L (0.04-0.35) X 10*3/uL Carbon Dioxide 18.4 L (21.6-31.8) mmol/L Anion Gap 13.60 H (4.00-12.00) mmol/L BUN/Creatinine Ratio 21.57 H (12.00-20.00) Ratio Glucose 179 H (70-110) mg/dL POC Glucose (mg/dL) 197 H (70-110) mg/dL Calcium 7.9 L (8.7-10.3) mg/dL 09/30/24 Range/Units 12:00 WBC (4.50-10.00) X 10*3/uL RBC (4.40-5.60) X 10*6/uL Hgb (13.0-17.0) g/dL Hct (39.6-50.0) % MCV (80.0-97.0) FL Immature Gran # (0.00-0.04) X 10*3/uL Neutrophils # (1.80-7.70) X 10*3/uL Monocytes # (0.20-1.00) X 10*3/uL Eosinophils # (0.04-0.35) X 10*3/uL Carbon Dioxide (21.6-31.8) mmol/L Anion Gap (4.00-12.00) mmol/L BUN/Creatinine Ratio (12.00-20.00) Ratio Glucose (70-110) mg/dL POC Glucose (mg/dL) 160 H (70-110) mg/dL Calcium (8.7-10.3) mg/dL Microbiology - Last 24 Hours (Table) 09/29/24 15:30 Gram Stain - Preliminary Toe - Right First
--- NOTE | 2024-09-30 16:25 | P.PN ---
Subjective Progress Note Date: 09/29/24 Principal diagnosis: Reason for follow-up is bilateral diabetic foot ulcer cellulitis Patient is a 74-year-old male with a past medical history significant for diabetes mellitus GI bleed diabetic foot ulcer in this patient did have a left fourth and fifth toe amputation and debridement with a chronic nonhealing wound to the left foot admitted to hospital with a syncopal episode and patient also noticed to have a necrotic wound to the right big toe. On today's evaluation that is 09/29/2024,the patient denies any fever or any chills, patient is breathing comfortably on room air, the patient denies chest pain shortness of breath and no significant cough, patient denies abdominal pain, no nausea vomiting or diarrhea. Denies any worsening pain to the right big toe site. Patient white count 17.8 creatinine 0.60 Objective - Vital Signs Vital signs: Vital Signs Temp 97.4 F L 09/29/24 07:33 Pulse 94 09/29/24 07:33 Resp 16 09/29/24 07:33 BP 146/85 09/29/24 07:33 Pulse Ox 100 09/29/24 07:33 FiO2 Intake & Output 09/28/24 09/29/24 09/29/24 18:59 06:59 18:59 Intake Total 716 780 Output Total 900 1600 500 Balance -184 -820 -500 Intake: Oral 716 780 Output: Urine 900 1600 500 Other: Voiding Method Urinal Incontinent Incontinent Incontinent External Catheter External Catheter - Exam GENERAL DESCRIPTION: An elderly male lying in bed in no distress RESPIRATORY SYSTEM: Unlabored breathing , decreased breath sounds at bases HEART: S1 S2 regular rate and rhythm , ABDOMEN: Soft , no tenderness EXTREMITIES: Bilateral feet were currently dressed - Labs CBC & Chem 7: 09/30/24 06:39 09/30/24 06:39 Labs: Abnormal Lab Results - Last 24 Hours (Table) 09/28/24 09/29/24 09/29/24 Range/Units 20:38 06:00 06:00 WBC 17.8 H (3.8-10.6) k/uL RBC 3.50 L (4.30-5.90) m/uL Hgb 10.8 L (13.0-17.5) gm/dL Hct 33.5 L (39.0-53.0) % Neutrophils # 15.1 H (1.3-7.7) k/uL Sodium 135 L (137-145) mmol/L Carbon Dioxide 20 L (22-30) mmol/L Creatinine 0.60 L (0.66-1.25) mg/dL POC Glucose (mg/dL) 115 H (70-110) mg/dL Albumin 2.8 L (3.5-5.0) g/dL Assessment and Plan (1) Diabetic gangrene Current Visit: No Status: Acute Code(s): E11.52 - TYPE 2 DIABETES W DIABETIC PERIPHERAL ANGIOPATHY W GANGRENE SNOMED Code(s): 379844842 (2) Diabetic infection of left foot Current Visit: No Status: Acute Code(s): E11.628 - TYPE 2 DIABETES MELLITUS WITH OTHER SKIN COMPLICATIONS; L08.9 - LOCAL INFECTION OF THE SKIN AND SUBCUTANEOUS TISSUE, UNSP SNOMED Code(s): 353889110 (3) Non-pressure chronic ulcer of other part of left foot with fat layer exposed Current Visit: No Status: Acute Code(s): L97.522 - NON-PRS CHRONIC ULCER OTH PRT LEFT FOOT W FAT LAYER EXPOSED SNOMED Code(s): 08172037783774592 Plan: 1patient with right big toe diabetic foot with a necrotic wound and evidence of secondary cellulitis will need to cover for the polymicrobial mariano associated with diabetic foot infection 2-patient also have a nonhealing wound on the left foot lateral border po stdilatation of the left fourth and fifth toe but no significant purulent drainage was noticed from the site 3- vascular surgery has evaluated the patient and has ordered an angiogram, did have angioplasty completed 09/24/2024 4-local culture has been finalized with the Enterobacter, actinomyces and bacteroids 5patient currently waiting for right big toe amputation scheduled for this afternoon continue with Zosyn and monitor clinical course closely Dictation was produced using [employer] dictation software. please excuse any grammatical, word or spelling errors. Time with Patient: Less than 30
--- NOTE | 2024-09-30 16:26 | P.PN ---
Subjective Progress Note Date: 09/30/24 Principal diagnosis: Reason for follow-up is bilateral diabetic foot ulcer cellulitis Patient is a 74-year-old male with a past medical history significant for diabetes mellitus GI bleed diabetic foot ulcer in this patient did have a left fourth and fifth toe amputation and debridement with a chronic nonhealing wound to the left foot admitted to hospital with a syncopal episode and patient also noticed to have a necrotic wound to the right big toe. Patient is status post right big toe amputation with significant purulence extending to the midfoot which has been cultured procedure completed on 09/29/2024 On today's evaluation that is 09/30/2024,the patient remains to be afebrile, patient is on room air not requiring supplemental oxygen and denies any shortness of breath no chest pain or cough.Patient denies having any nausea or vomiting, no abdominal pain and no diarrhea has been reported denies any worsening pain to the right big toe imitation site. Patient white count is slightly up to 20.58 creatinine 0.7 OR cultures pending Objective - Vital Signs Vital signs: Vital Signs Temp 97.4 F L 09/30/24 14:00 Pulse 88 09/30/24 14:00 Resp 18 09/30/24 14:00 BP 112/66 09/30/24 14:00 Pulse Ox 99 09/30/24 14:00 FiO2 Intake & Output 09/29/24 09/30/24 09/30/24 18:59 06:59 18:59 Intake Total 500 Output Total 1005 900 700 Balance -505 -900 -700 Intake: IV 500 Output: Urine 1000 900 700 Estimated Blood Loss 5 Other: Voiding Method Incontinent Incontinent External Catheter External Catheter - Exam GENERAL DESCRIPTION: An elderly male lying in bed in no distress RESPIRATORY SYSTEM: Unlabored breathing , decreased breath sounds at bases HEART: S1 S2 regular rate and rhythm , ABDOMEN: Soft , no tenderness EXTREMITIES: Right big toe foot is currently dressed no drainage - Labs CBC & Chem 7: 09/30/24 06:39 09/30/24 06:39 Labs: Abnormal Lab Results - Last 24 Hours (Table) 09/30/24 09/30/24 09/30/24 Range/Units 06:13 06:39 06:39 WBC 20.58 H (4.50-10.00) X 10*3/uL RBC 3.13 L (4.40-5.60) X 10*6/uL Hgb 9.9 L (13.0-17.0) g/dL Hct 30.4 L (39.6-50.0) % MCV 97.1 H (80.0-97.0) FL Immature Gran # 0.36 H (0.00-0.04) X 10*3/uL Neutrophils # 17.25 H (1.80-7.70) X 10*3/uL Monocytes # 1.34 H (0.20-1.00) X 10*3/uL Eosinophils # 0.01 L (0.04-0.35) X 10*3/uL Carbon Dioxide 18.4 L (21.6-31.8) mmol/L Anion Gap 13.60 H (4.00-12.00) mmol/L BUN/Creatinine Ratio 21.57 H (12.00-20.00) Ratio Glucose 179 H (70-110) mg/dL POC Glucose (mg/dL) 197 H (70-110) mg/dL Calcium 7.9 L (8.7-10.3) mg/dL 09/30/24 Range/Units 12:00 WBC (4.50-10.00) X 10*3/uL RBC (4.40-5.60) X 10*6/uL Hgb (13.0-17.0) g/dL Hct (39.6-50.0) % MCV (80.0-97.0) FL Immature Gran # (0.00-0.04) X 10*3/uL Neutrophils # (1.80-7.70) X 10*3/uL Monocytes # (0.20-1.00) X 10*3/uL Eosinophils # (0.04-0.35) X 10*3/uL Carbon Dioxide (21.6-31.8) mmol/L Anion Gap (4.00-12.00) mmol/L BUN/Creatinine Ratio (12.00-20.00) Ratio Glucose (70-110) mg/dL POC Glucose (mg/dL) 160 H (70-110) mg/dL Calcium (8.7-10.3) mg/dL Microbiology - Last 24 Hours (Table) 09/29/24 15:30 Gram Stain - Preliminary Toe - Right First Assessment and Plan (1) Diabetic gangrene Current Visit: No Status: Acute Code(s): E11.52 - TYPE 2 DIABETES W DIABETIC PERIPHERAL ANGIOPATHY W GANGRENE SNOMED Code(s): 952475562 (2) Diabetic infection of left foot Current Visit: No Status: Acute Code(s): E11.628 - TYPE 2 DIABETES MELLITUS WITH OTHER SKIN COMPLICATIONS; L08.9 - LOCAL INFECTION OF THE SKIN AND SUBCUTANEOUS TISSUE, UNSP SNOMED Code(s): 463102480 (3) Non-pressure chronic ulcer of other part of left foot with fat layer exposed Current Visit: No Status: Acute Code(s): L97.522 - NON-PRS CHRONIC ULCER OTH PRT LEFT FOOT W FAT LAYER EXPOSED SNOMED Code(s): 51748935204065071 Plan: 1patient with right big toe diabetic foot with a necrotic wound and evidence of secondary cellulitis will need to cover for the polymicrobial mariano associated with diabetic foot infection 2-patient also have a nonhealing wound on the left foot lateral border postdi latation of the left fourth and fifth toe but no significant purulent drainage was noticed from the site 3- vascular surgery has evaluated the patient and has ordered an angiogram, did have angioplasty completed 09/24/2024 4-local culture has been finalized with the Enterobacter, actinomyces and frida teroids 5patient is status post amputation of the right big toe amputation and drainage of the abscess and has been culture results will be followed for now continue Zosyn slightly worsening of the white count post surgery questionable reactive Dictation was produced using [employer] dictation software. please excuse any grammatical, word or spelling errors. Time with Patient: Less than 30
[2024-09-30 17:04] LABS: Glucose,Whole Blood 182 mg/dL (70-110)
[2024-09-30 20:04] LABS: Glucose,Whole Blood 190 mg/dL (70-110)
[2024-10-01 05:51] LABS: Glucose,Whole Blood 145 mg/dL (70-110)
--- NOTE | 2024-10-01 10:51 | P.PN ---
Subjective Progress Note Date: 10/01/24 Principal diagnosis: Cellulitis Patient is seen and examined today as a follow-up. No acute changes through the night. He is awaiting authorization from his insurance company for subacute rehab. He has been afebrile. States his pain is well-controlled. Objective - Vital Signs Vital signs: Vital Signs Temp 97.7 F 10/01/24 07:30 Pulse 91 10/01/24 07:30 Resp 16 10/01/24 07:30 BP 147/79 10/01/24 07:30 Pulse Ox 100 10/01/24 07:30 FiO2 Intake & Output 09/30/24 10/01/24 10/01/24 18:59 06:59 18:59 Intake Total 120 Output Total 1350 1800 Balance -1230 -1800 Intake: Oral 120 Output: Urine 1350 1800 Other: Voiding Method Incontinent External Catheter - Exam General appearance: The patient is alert, oriented, appears in no acute distress. HET: Head is normocephalic and atraumatic. Pupils are equal and reactive. Neck: Supple. Abdomen: Soft, nontender, nondistended. Extremities: Left foot with dressing clean dry and intact. Right foot with dressing clean dry and intact. Neurological: Alert and oriented. - Labs CBC & Chem 7: 09/30/24 06:39 09/30/24 06:39 Labs: Abnormal Lab Results - Last 24 Hours (Table) 09/30/24 09/30/24 09/30/24 Range/Units 06:39 06:39 12:00 WBC 20.58 H (4.50-10.00) X 10*3/uL RBC 3.13 L (4.40-5.60) X 10*6/uL Hgb 9.9 L (13.0-17.0) g/dL Hct 30.4 L (39.6-50.0) % MCV 97.1 H (80.0-97.0) FL Immature Gran # 0.36 H (0.00-0.04) X 10*3/uL Neutrophils # 17.25 H (1.80-7.70) X 10*3/uL Monocytes # 1.34 H (0.20-1.00) X 10*3/uL Eosinophils # 0.01 L (0.04-0.35) X 10*3/uL Carbon Dioxide 18.4 L (21.6-31.8) mmol/L Anion Gap 13.60 H (4.00-12.00) mmol/L BUN/Creatinine Ratio 21.57 H (12.00-20.00) Ratio Glucose 179 H (70-110) mg/dL POC Glucose (mg/dL) 160 H (70-110) mg/dL Calcium 7.9 L (8.7-10.3) mg/dL 09/30/24 09/30/24 10/01/24 Range/Units 17:02 20:02 05:37 WBC (4.50-10.00) X 10*3/uL RBC (4.40-5.60) X 10*6/uL Hgb (13.0-17.0) g/dL Hct (39.6-50.0) % MCV (80.0-97.0) FL Immature Gran # (0.00-0.04) X 10*3/uL Neutrophils # (1.80-7.70) X 10*3/uL Monocytes # (0.20-1.00) X 10*3/uL Eosinophils # (0.04-0.35) X 10*3/uL Carbon Dioxide (21.6-31.8) mmol/L Anion Gap (4.00-12.00) mmol/L BUN/Creatinine Ratio (12.00-20.00) Ratio Glucose (70-110) mg/dL POC Glucose (mg/dL) 182 H 190 H 145 H (70-110) mg/dL Calcium (8.7-10.3) mg/dL Microbiology - Last 24 Hours (Table) 09/29/24 15:30 Gram Stain - Preliminary Toe - Right First Wound Culture - Preliminary Assessment and Plan Assessment: 1. Gangrene right great toe status post great toe amputation 2. 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 Right foot cellulitis 4. Diabetes mellitus 5. History of left toe infection status post amputation 6. Smoker Plan: 1. Continue with antibiotic recommendations from infectious disease 2. Continue with local wound care per recommendations from wound clinic 3. Daily dressing change to right great toe amputation site with Dakin's wet-to-dry solution 4. Continue aspirin 81 mg daily and will add Xarelto 2.5 mg twice daily 5. Consistent carbohydrate diet 6. Nonweightbearing to right lower extremity 7. Consult PT/OT for reevaluation postsurgery 8. Recommend smoking cessation, continue with nicotine patch 9. Patient is cleared from vascular surgery for discharge. Follow-up with Dr. June in 1 to 2 weeks. Thank you for this consultation, patient is cleared for discharge from vascular surgery. The impression and plan of care has been dictated as directed. Dr. June I performed a history and examination of this patient, discussed the same with the dictator. I agree with the dictator's note ,documented as a scribe. Any additional findings or plans will be noted.
[2024-10-01 12:04] LABS: Glucose,Whole Blood 209 mg/dL (70-110)
--- NOTE | 2024-10-01 14:25 | P.PN ---
Subjective Progress Note Date: 10/01/24 Per medical H&P, "74-year-old male was brought in because he had a fall at the time they would n ot show to the patient is not visible patient denies a couple episode apparently patient had altered mental status patient is almost alert oriented x 3 when I evaluated the patient patient denied any UTI symptoms patient was complaining of generalized weakness. Patient does have leukocytosis without any evidence of infection at this time patient denied any cough. Patient blood sugars are high unknown what patient takes as patient does not know what she takes. Patient was discharged on 20 units of Lantus in month of February. Patient is hyponatremic and hyperkalemic." Progress note for 09/20/2024: Patient was seen at bedside today. Labs from today showed sodium 135, potassium 4.2, chloride 103, carbon dioxide 21.5, BUN 10.1, creatinine 0.7, glucose 163, hemoglobin A1c of 9.7. Vitals temperature of 98.2, pulse rate of 96, respiratory rate 19, blood pressure 135/74, O2 sat 98% on room air. Brain CT obtained last night showed no acute intracranial abnormality. Patient denies any acute complaints at this time. Patient denies any fever, chills, dizziness,, chest pain, shortness of breath/vomiting, belly pain. Patient was noted to have very big open wound on his right big toe with signs of necrosis. 09/21/2024 Patient is seen in follow-up this morning currently sitting up at the chair with multiple consultations following including vascular surgery and infectious dis ease. Wound care consulted and pending at this time. Vascular surgery with plans of angiogram on 09/22/2024. Patient will be n.p.o. at midnight and will await report. Follow-up with repeat labs and continue current local wound care. Jayro wraps not recommended on lower extremities. Patient is afebrile denies chest pain or shortness of breath. Patient reports intermittent pain of the lower extremities although controlled on current regimen. 09/22/2024 Patient was seen at bedside today. Patient underwent an angiogram earlier this morning. Per operative report, on the right, the takeoff of the AT is visualized and found to be severely calcified. On the left, the popliteal artery has mild to moderate calcific disease with some narrowing distally at the infrapopliteal segment. The anterior tibial artery is visualized at its takeoff with significant calcific disease throughout. Patient reported no complaints at this time. Denies any fever, chills, chest pain, shortness of breath, na usea/vomiting. Vascular surgery plan to take the patient for debridement on Friday. WBC 16.2, hemoglobin 12.5, hematocrit 39.2, platelets 273, neutrophils 14, sodium 134, potassium 4.3, glucose 127. 09/23/2024 Patient was seen at bedside today. WBC 17.33, hemoglobin 11.3, hematocrit 34.5, platelet 260, sodium 137, potassium 4.0, BUN 14.8, creatinine 0.7, glucose 130. Vitals temperature 97.9, pulse rate of 98, respiratory rate 18, blood pressure 109/65, O2 sat 99% on room air. Patient reports no acute complaints at this time. Vascular surgery plan to take patient for an angiogram and possibly amputation of the right big toe on Friday. 09/24/2024 Patient was seen at bedside today. Patient underwent an angiogram of right lower extremity this morning. Reports no complaints at this time. WBC 19.24, hemoglobin 10.7, hematocrit 34.8, platelet 306. BMP showed sodium 139, potassium 4.1, chloride 105, carbon dioxide 18, BUN 20, creatinine 0.77, glucose 114. Left foot wound culture showed positive for Enterobacter cloacae which is sensitive to the Zosyn patient is currently receiving. 09/25/2024 Patient was seen at bedside today. Reports no complaints at this time. Patient will undergo possible amputation on Friday by vascular surgery. WBC 14.3, hemoglobin 10.7, hematocrit 32.6, platelets 311, sodium 137, potassium 3.9, chloride 106, carbon dioxide 20, BUN 16, creatinine 0.67, glucose 127. 09/26 Patient currently sitting up on the bedside Both l feet and needs a dressing. He has mild pain which looks controlled Imaging reviewed: CT angio showing severe atrophic changes of aorta extending into branch vessels and most severe findings in the bilateral lower extremities below the knees. 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 June on 09/24/2024 Patient currently covered with IV Zosyn and normal saline 75 mL/h 09/27/2024 Patient is seen and evaluated in follow-up continues with sitter at the bedside as patient is impulsive and high risk for falls. Patient being followed by vascular surgery and is planning possible amputation of the great toe this week. Patient also being followed by infectious disease maintained on antibiotics and will continue. Patient was lethargic and recommend limiting narcotic use. Encouraged increase activity as tolerated and sitting up more frequently. 09/28/2024 Patient seen in follow-up much more awake today sitting up at the side of the bed with sitter for safety. Patient has been getting up with assistance and will continue current regimen. Recommend updated PT/OT therapy notes and discuss further with case management/social work regarding discharge planning. Per vascular surgery patient will likely require IV antibiotics and infectious diseases following. Patient will receive a PICC line and orders placed for today. Patient is afebrile with no reports of chest pain or shortness of breath. Patient reports to tolerating diet and will continue current regimen. Continue monitoring Accu-Cheks before meals and at bedtime. Continue local wound care. 09/29/2024 Patient was seen at bedside today. Reports no acute complaints at this time. Patient will undergo amputation of right big toe this afternoon. WBC 5.26, hemoglobin 7.4, hematocrit 23.8, platelet 222, sodium 137, potassium 3.9, chloride 105, carbon dioxide 25.8, BUN 9.8, creatinine 0.6, glucose 95 09/30/2024 Patient was seen at bedside today. He underwent an amputation of right big toe yesterday afternoon. He denies any acute complaints at this time. Vascular surgery has cleared him for discharge and the plan is to follow-up with Dr. Boyd cox in 1 to 2 weeks after discharge. Patient is currently pending placement at [facility]. 10/01/2024 Patient was seen at bedside today. Reports no acute complaints at this time. Currently waiting for final wound culture of right big toe to come back and pending placement at [facility]. Review of Systems Constitutional: Denies chills, Denies fever Eyes: denies blurred vision, double vision or pain Ears, nose, mouth and throat: Denies headache, Denies sore throat Cardiovascular: Denies chest pain, Denies shortness of breath Respiratory: Denies cough Gastrointestinal: Denies abdominal pain, Denies diarrhea, Denies nausea, Denies vomiting Musculoskeletal: Denies myalgias Integumentary: Denies pruritus, Denies rash Neurological: Denies numbness, Denies weakness Psychiatric: Denies anxiety, Denies depression Endocrine: Denies fatigue, Denies weight change Physical exam: Gen: This is a 74-year-old male who is awake, alert and oriented x 2, baseline, well-developed, elderly appearing, unkempt, obese HEENT: Head is atraumatic, normocephalic. Pupils equal, round. Sclerae is anicteric. NECK: Supple. No JVD. No lymphadenopathy. No thyromegaly. LUNGS: Diminished breath sounds bilaterally otherwise clear to auscultation. No wheezes or rhonchi. No intercostal retractions. HEART: S1, S2 are muffled ABDOMEN: Soft. Thin bowel sounds are present. No masses. No tenderness. EXTREMITIES: No pedal edema. No calf tenderness. Right lower extremity Jayro wrap applied with significant drainage that is dried noted on the dressing NEUROLOGICAL: Patient is awake, alert and oriented x2. Cranial nerves 2 through 12 are grossly intact. Diffusely weak Assessment: Fall, may be secondary to generalized weakness and dehydration Non-healing diabetic foot wounds, history of gangrene/osteomyelitis with previous toe amputation and debridement with Dr. June Peripheral artery disease. CT angio showing severe atrophic changes of aorta extending into branch vessels and most severe findings in the bilateral lower extremities below the knees. Leukocytosis possibly secondary to above avascular necrosis of the femoral head Hypovolemic hyponatremia, resolved Hyperkalemia with slight hemolysis, resolved Type 2 diabetes mellitus Generalized weakness GI prophylaxis DVT prophylaxis Full code Plan: Patient being followed by multiple consultations including infectious disease, vascular surgery, wound care Pending final wound culture of right big toe Underwent amputation of right big toe on 09/29/2024 by vascular surgery Vascular surgery has cleared him for discharge and plan is to follow-up with Dr. June 1 to 2 weeks outpatient after discharge Vascular surgery started patient on rivaroxaban 2.5 mg twice daily PICC line has been inserted on 09/28/2024 Continue with Zosyn per ID recommendation. Monitor morning CBC and BMP Wound care recommended to continue with Santyl to bilateral lower extremities. Continue IV fluids at 75 cc an hour Continue with sliding scale insulin Objective - Vital Signs Vital signs: Vital Signs Temp 97.7 F 10/01/24 07:30 Pulse 91 10/01/24 07:30 Resp 16 10/01/24 07:30 BP 147/79 10/01/24 07:30 Pulse Ox 100 10/01/24 07:30 FiO2 Intake & Output 09/30/24 10/01/24 10/01/24 18:59 06:59 18:59 Intake Total 120 Output Total 1350 1800 1000 Balance -1230 -1800 -1000 Intake: Oral 120 Output: Urine 1350 1800 1000 Other: Voiding Method Incontinent External Catheter - Labs CBC & Chem 7: 09/30/24 06:39 09/30/24 06:39 Labs: Abnormal Lab Results - Last 24 Hours (Table) 09/30/24 09/30/24 10/01/24 Range/Units 17:02 20:02 05:37 POC Glucose (mg/dL) 182 H 190 H 145 H (70-110) mg/dL 10/01/24 Range/Units 12:03 POC Glucose (mg/dL) 209 H (70-110) mg/dL Microbiology - Last 24 Hours (Table) 09/29/24 15:30 Gram Stain - Preliminary Toe - Right First Wound Culture - Preliminary
[2024-10-01 17:12] LABS: Glucose,Whole Blood 284 mg/dL (70-110)
[2024-10-01 19:55] LABS: Glucose,Whole Blood 224 mg/dL (70-110)
--- NOTE | 2024-10-01 23:09 | P.PN ---
Subjective Progress Note Date: 10/01/24 Principal diagnosis: Reason for follow-up is bilateral diabetic foot ulcer cellulitis Patient is a 74-year-old male with a past medical history significant for diabetes mellitus GI bleed diabetic foot ulcer in this patient did have a left fourth and fifth toe amputation and debridement with a chronic nonhealing wound to the left foot admitted to hospital with a syncopal episode and patient also noticed to have a necrotic wound to the right big toe. Patient is status post right big toe amputation with significant purulence extending to the midfoot which has been cultured procedure completed on 09/29/2024 On today's evaluation that is 10/01/2024, the patient continues to be afebrile, the patient is on room air and breathing comfortably, the Pt denies having any chest pain or cough, the patient denies having any abdominal pain no vomiting or any diarrhea has been reported by the nursing staff denies any pain to bilateral foot wound area. Patient did not have any lab draw today or cultures pending Objective - Vital Signs Vital signs: Vital Signs Temp 97.7 F 10/01/24 07:30 Pulse 91 10/01/24 07:30 Resp 16 10/01/24 07:30 BP 147/79 10/01/24 07:30 Pulse Ox 100 10/01/24 07:30 FiO2 Intake & Output 09/30/24 10/01/24 10/01/24 18:59 06:59 18:59 Intake Total 120 Output Total 1350 1800 1000 Balance -1230 -1800 -1000 Intake: Oral 120 Output: Urine 1350 1800 1000 Other: Voiding Method Incontinent External Catheter - Exam GENERAL DESCRIPTION: An elderly male lying in bed in no distress RESPIRATORY SYSTEM: Unlabored breathing , decreased breath sounds at bases HEART: S1 S2 regular rate and rhythm , ABDOMEN: Soft , no tenderness EXTREMITIES: Right big toe foot is currently dressed no drainage - Labs CBC & Chem 7: 09/30/24 06:39 09/30/24 06:39 Labs: Abnormal Lab Results - Last 24 Hours (Table) 09/30/24 09/30/24 10/01/24 Range/Units 17:02 20:02 05:37 POC Glucose (mg/dL) 182 H 190 H 145 H (70-110) mg/dL 10/01/24 Range/Units 12:03 POC Glucose (mg/dL) 209 H (70-110) mg/dL Microbiology - Last 24 Hours (Table) 09/29/24 15:30 Gram Stain - Preliminary Toe - Right First Wound Culture - Preliminary Assessment and Plan (1) Diabetic gangrene Current Visit: No Status: Acute Code(s): E11.52 - TYPE 2 DIABETES W DIABETIC PERIPHERAL ANGIOPATHY W GANGRENE SNOMED Code(s): 407702071 (2) Diabetic infection of left foot Current Visit: No Status: Acute Code(s): E11.628 - TYPE 2 DIABETES MELLITUS WITH OTHER SKIN COMPLICATIONS; L08.9 - LOCAL INFECTION OF THE SKIN AND SUBCUTANEOUS TISSUE, UNSP SNOMED Code(s): 245463787 (3) Non-pressure chronic ulcer of other part of left foot with fat layer exposed Current Visit: No Status: Acute Code(s): L97.522 - NON-PRS CHRONIC ULCER OTH PRT LEFT FOOT W FAT LAYER EXPOSED SNOMED Code(s): 41883309084756158 Plan: 1patient with right big toe diabetic foot with a necrotic wound and evidence of secondary cellulitis will need to cover for the polymicrobial mariano associated with diabetic foot infection 2-patient also have a nonhealing wound on the left foot lateral border postdilatation of the left fourth and fifth toe but no significant purulent drainage was noticed from the site 3- vascular surgery has evaluated the patient and has ordered an angiogram, did have angioplasty completed 09/24/2024 4-local culture has been finalized with the Enterobacter, actinomyces and bacteroids 5patient is status post amputation of the right big toe and drainage of the abscess cultures are currently pending continue with the Marisol while waiting for the culture to finalize Dictation was produced using [employer]weitge[employer] dictation software. please excuse any grammatical, word or spelling errors. Time with Patient: Less than 30
[2024-10-02 05:31] LABS: Glucose,Whole Blood 152 mg/dL (70-110)
[2024-10-02 09:44] LABS: BUN/Creat Ratio 22.86 Ratio (12.00-20.00); Calcium 8.5 mg/dL (8.7-10.3); Carbon Dioxide 22.4 mmol/L (21.6-31.8); Chloride 102 mmol/L (96-109); Glucose 140 mg/dL (70-110); Potassium 4.1 mmol/L (3.5-5.5); Sodium 137 mmol/L (135-145)
[2024-10-02 09:54] LABS: Basophils # (A) 0.09 X 10*3/uL (0.00-0.10); Basophils % (A) 0.6 %; Eosinophils # (A) 0.26 X 10*3/uL (0.04-0.35); Eosinophils % (A) 1.9 %; HCT 37.5 % (39.6-50.0); HGB 11.5 g/dL (13.0-17.0); Lymphocytes # (A) 2.41 X 10*3/uL (0.90-5.00); Lymphocytes % (A) 17.4 %; MCH 30.2 pg (27.0-32.0); MCHC 30.7 g/dL (32.0-37.0); MCV 98.4 FL (80.0-97.0); Mean Platelet Volume 10.9 FL (9.5-12.2); Monocytes # (A) 1.08 X 10*3/uL (0.20-1.00); Monocytes % (A) 7.8 %; NRBC Per 100 WBC 0.02 X 10*3/uL (0.00-0.01); Neutrophils # (A) 9.73 X 10*3/uL (1.80-7.70); Platelet Count 361 X 10*3/uL (140-440); RBC 3.81 X 10*6/uL (4.40-5.60); RDW 12.1 % (11.5-14.5); WBC 13.89 X 10*3/uL (4.50-10.00)
--- NOTE | 2024-10-02 10:43 | P.PN ---
Subjective Progress Note Date: 10/02/24 Per medical H&P, "74-year-old male was brought in because he had a fall at the time they would n ot show to the patient is not visible patient denies a couple episode apparently patient had altered mental status patient is almost alert oriented x 3 when I evaluated the patient patient denied any UTI symptoms patient was complaining of generalized weakness. Patient does have leukocytosis without any evidence of infection at this time patient denied any cough. Patient blood sugars are high unknown what patient takes as patient does not know what she takes. Patient was discharged on 20 units of Lantus in month of February. Patient is hyponatremic and hyperkalemic." Progress note for 09/20/2024: Patient was seen at bedside today. Labs from today showed sodium 135, potassium 4.2, chloride 103, carbon dioxide 21.5, BUN 10.1, creatinine 0.7, glucose 163, hemoglobin A1c of 9.7. Vitals temperature of 98.2, pulse rate of 96, respiratory rate 19, blood pressure 135/74, O2 sat 98% on room air. Brain CT obtained last night showed no acute intracranial abnormality. Patient denies any acute complaints at this time. Patient denies any fever, chills, dizziness,, chest pain, shortness of breath/vomiting, belly pain. Patient was noted to have very big open wound on his right big toe with signs of necrosis. 09/21/2024 Patient is seen in follow-up this morning currently sitting up at the chair with multiple consultations following including vascular surgery and infectious dis ease. Wound care consulted and pending at this time. Vascular surgery with plans of angiogram on 09/22/2024. Patient will be n.p.o. at midnight and will await report. Follow-up with repeat labs and continue current local wound care. Jayro wraps not recommended on lower extremities. Patient is afebrile denies chest pain or shortness of breath. Patient reports intermittent pain of the lower extremities although controlled on current regimen. 09/22/2024 Patient was seen at bedside today. Patient underwent an angiogram earlier this morning. Per operative report, on the right, the takeoff of the AT is visualized and found to be severely calcified. On the left, the popliteal artery has mild to moderate calcific disease with some narrowing distally at the infrapopliteal segment. The anterior tibial artery is visualized at its takeoff with significant calcific disease throughout. Patient reported no complaints at this time. Denies any fever, chills, chest pain, shortness of breath, na usea/vomiting. Vascular surgery plan to take the patient for debridement on Friday. WBC 16.2, hemoglobin 12.5, hematocrit 39.2, platelets 273, neutrophils 14, sodium 134, potassium 4.3, glucose 127. 09/23/2024 Patient was seen at bedside today. WBC 17.33, hemoglobin 11.3, hematocrit 34.5, platelet 260, sodium 137, potassium 4.0, BUN 14.8, creatinine 0.7, glucose 130. Vitals temperature 97.9, pulse rate of 98, respiratory rate 18, blood pressure 109/65, O2 sat 99% on room air. Patient reports no acute complaints at this time. Vascular surgery plan to take patient for an angiogram and possibly amputation of the right big toe on Friday. 09/24/2024 Patient was seen at bedside today. Patient underwent an angiogram of right lower extremity this morning. Reports no complaints at this time. WBC 19.24, hemoglobin 10.7, hematocrit 34.8, platelet 306. BMP showed sodium 139, potassium 4.1, chloride 105, carbon dioxide 18, BUN 20, creatinine 0.77, glucose 114. Left foot wound culture showed positive for Enterobacter cloacae which is sensitive to the Zosyn patient is currently receiving. 09/25/2024 Patient was seen at bedside today. Reports no complaints at this time. Patient will undergo possible amputation on Friday by vascular surgery. WBC 14.3, hemoglobin 10.7, hematocrit 32.6, platelets 311, sodium 137, potassium 3.9, chloride 106, carbon dioxide 20, BUN 16, creatinine 0.67, glucose 127. 09/26 Patient currently sitting up on the bedside Both l feet and needs a dressing. He has mild pain which looks controlled Imaging reviewed: CT angio showing severe atrophic changes of aorta extending into branch vessels and most severe findings in the bilateral lower extremities below the knees. 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 June on 09/24/2024 Patient currently covered with IV Zosyn and normal saline 75 mL/h 09/27/2024 Patient is seen and evaluated in follow-up continues with sitter at the bedside as patient is impulsive and high risk for falls. Patient being followed by vascular surgery and is planning possible amputation of the great toe this week. Patient also being followed by infectious disease maintained on antibiotics and will continue. Patient was lethargic and recommend limiting narcotic use. Encouraged increase activity as tolerated and sitting up more frequently. 09/28/2024 Patient seen in follow-up much more awake today sitting up at the side of the bed with sitter for safety. Patient has been getting up with assistance and will continue current regimen. Recommend updated PT/OT therapy notes and discuss further with case management/social work regarding discharge planning. Per vascular surgery patient will likely require IV antibiotics and infectious diseases following. Patient will receive a PICC line and orders placed for today. Patient is afebrile with no reports of chest pain or shortness of breath. Patient reports to tolerating diet and will continue current regimen. Continue monitoring Accu-Cheks before meals and at bedtime. Continue local wound care. 09/29/2024 Patient was seen at bedside today. Reports no acute complaints at this time. Patient will undergo amputation of right big toe this afternoon. WBC 5.26, hemoglobin 7.4, hematocrit 23.8, platelet 222, sodium 137, potassium 3.9, chloride 105, carbon dioxide 25.8, BUN 9.8, creatinine 0.6, glucose 95 09/30/2024 Patient was seen at bedside today. He underwent an amputation of right big toe yesterday afternoon. He denies any acute complaints at this time. Vascular surgery has cleared him for discharge and the plan is to follow-up with Dr. Boyd cox in 1 to 2 weeks after discharge. Patient is currently pending placement at [facility]. 10/01/2024 Patient was seen at bedside today. Reports no acute complaints at this time. Currently waiting for final wound culture of right big toe to come back and pending placement at [facility]. 10/02/2024 Patient was seen at bedside today. Reports no acute complaints at this time. No chest pain, shortness of breath, fever, chills, nausea or vomiting. Wound culture of right big toe showed no growth. Pending placement at [facility]. Review of Systems Constitutional: Denies chills, Denies fever Eyes: denies blurred vision, double vision or pain Ears, nose, mouth and throat: Denies headache, Denies sore throat Cardiovascular: Denies chest pain, Denies shortness of breath Respiratory: Denies cough Gastrointestinal: Denies abdominal pain, Denies diarrhea, Denies nausea, Denies vomiting Musculoskeletal: Denies myalgias Integumentary: Denies pruritus, Denies rash Neurological: Denies numbness, Denies weakness Psychiatric: Denies anxiety, Denies depression Endocrine: Denies fatigue, Denies weight change Physical exam: Gen: This is a 74-year-old male who is awake, alert and oriented x 2, baseline, well-developed, elderly appearing, unkempt, obese HEENT: Head is atraumatic, normocephalic. Pupils equal, round. Sclerae is anicteric. NECK: Supple. No JVD. No lymphadenopathy. No thyromegaly. LUNGS: Diminished breath sounds bilaterally otherwise clear to auscultation. No wheezes or rhonchi. No intercostal retractions. HEART: S1, S2 are muffled ABDOMEN: Soft. Thin bowel sounds are present. No masses. No tenderness. EXTREMITIES: No pedal edema. No calf tenderness. Right lower extremity Jayro wrap applied with significant drainage that is dried noted on the dressing NEUROLOGICAL: Patient is awake, alert and oriented x2. Cranial nerves 2 through 12 are grossly intact. Diffusely weak Assessment: Fall, may be secondary to generalized weakness and dehydration Non-healing diabetic foot wounds, history of gangrene/osteomyelitis with previous toe amputation and debridement with Dr. June Peripheral artery disease. CT angio showing severe atrophic changes of aorta extending into branch vessels and most severe findings in the bilateral lower extremities below the knees. Leukocytosis possibly secondary to above avascular necrosis of the femoral head Hypovolemic hyponatremia, resolved Hyperkalemia with slight hemolysis, resolved Type 2 diabetes mellitus Generalized weakness GI prophylaxis DVT prophylaxis Full code Plan: Patient being followed by multiple consultations including infectious disease, vascular surgery, wound care Wound culture of right big toe showed no growth Underwent amputation of right big toe on 09/29/2024 by vascular surgery Vascular surgery has cleared him for discharge and plan is to follow-up with Dr. June 1 to 2 weeks outpatient after discharge Vascular surgery started patient on rivaroxaban 2.5 mg twice daily PICC line has been inserted on 09/28/2024 Continue with Zosyn per ID recommendation. Monitor morning CBC and BMP Wound care recommended to continue with Santyl to bilateral lower extremities. Continue IV fluids at 75 cc an hour Continue with sliding scale insulin Objective - Vital Signs Vital signs: Vital Signs Temp 97.4 F L 10/02/24 07:55 Pulse 95 10/02/24 07:55 Resp 16 10/02/24 07:55 BP 165/100 10/02/24 07:55 Pulse Ox 100 10/02/24 07:55 FiO2 Intake & Output 10/01/24 10/02/24 10/02/24 18:59 06:59 18:59 Intake Total 237 180 Output Total 1600 1200 Balance -1363 -1020 Intake: Oral 237 180 Output: Urine 1600 1200 Other: Voiding Method Incontinent External Catheter - Labs CBC & Chem 7: 10/02/24 04:27 10/02/24 04:27 Labs: Abnormal Lab Results - Last 24 Hours (Table) 10/01/24 10/01/24 10/01/24 Range/Units 12:03 17:12 19:54 WBC (4.50-10.00) X 10*3/uL RBC (4.40-5.60) X 10*6/uL Hgb (13.0-17.0) g/dL Hct (39.6-50.0) % MCV (80.0-97.0) FL MCHC (32.0-37.0) g/dL Immature Gran # (0.00-0.04) X 10*3/uL Neutrophils # (1.80-7.70) X 10*3/uL Monocytes # (0.20-1.00) X 10*3/uL NRBC/100 WBC Diff (0.00-0.01) X 10*3/uL Anion Gap (4.00-12.00) mmol/L BUN/Creatinine Ratio (12.00-20.00) Ratio Glucose (70-110) mg/dL POC Glucose (mg/dL) 209 H 284 H 224 H (70-110) mg/dL Calcium (8.7-10.3) mg/dL 10/02/24 10/02/24 10/02/24 Range/Units 04:27 04:27 05:13 WBC 13.89 H (4.50-10.00) X 10*3/uL RBC 3.81 L (4.40-5.60) X 10*6/uL Hgb 11.5 L (13.0-17.0) g/dL Hct 37.5 L (39.6-50.0) % MCV 98.4 H (80.0-97.0) FL MCHC 30.7 L (32.0-37.0) g/dL Immature Gran # 0.32 H (0.00-0.04) X 10*3/uL Neutrophils # 9.73 H (1.80-7.70) X 10*3/uL Monocytes # 1.08 H (0.20-1.00) X 10*3/uL NRBC/100 WBC Diff 0.02 H (0.00-0.01) X 10*3/uL Anion Gap 12.60 H (4.00-12.00) mmol/L BUN/Creatinine Ratio 22.86 H (12.00-20.00) Ratio Glucose 140 H (70-110) mg/dL POC Glucose (mg/dL) 152 H (70-110) mg/dL Calcium 8.5 L (8.7-10.3) mg/dL Microbiology - Last 24 Hours (Table) 09/29/24 15:30 Gram Stain - Final Toe - Right First Wound Culture - Final
[2024-10-02 12:26] LABS: Glucose,Whole Blood 246 mg/dL (70-110)
[2024-10-02 17:40] LABS: Glucose,Whole Blood 454 mg/dL (70-110)
[2024-10-02 20:04] LABS: Glucose,Whole Blood 186 mg/dL (70-110)
--- NOTE | 2024-10-02 22:17 | P.PN ---
Subjective Progress Note Date: 10/02/24 Principal diagnosis: Reason for follow-up is bilateral diabetic foot ulcer cellulitis Patient is a 74-year-old male with a past medical history significant for diabetes mellitus GI bleed diabetic foot ulcer in this patient did have a left fourth and fifth toe amputation and debridement with a chronic nonhealing wound to the left foot admitted to hospital with a syncopal episode and patient also noticed to have a necrotic wound to the right big toe. Patient is status post right big toe amputation with significant purulence extending to the midfoot which has been cultured procedure completed on 09/29/2024 On today's evaluation that is 10/02/2024, patient did not have any fever and denies any chills, patient is breathing comfortably on room air, patient with no chest pain or cough patient did not have any abdominal pain nausea vomiting or any loose stools or pain to bilateral foot wound area. For culture now growing Bacteroides fragilis with initial culture positive for actinomyces bacteroids and Enterobacter Objective - Vital Signs Vital signs: Vital Signs Temp 97.4 F L 10/02/24 07:55 Pulse 95 10/02/24 07:55 Resp 16 10/02/24 07:55 BP 165/100 10/02/24 07:55 Pulse Ox 100 10/02/24 07:55 FiO2 Intake & Output 10/01/24 10/02/24 10/02/24 18:59 06:59 18:59 Intake Total 237 180 240 Output Total 1600 1200 Balance -1363 -1020 240 Intake: Oral 237 180 240 Output: Urine 1600 1200 Other: Voiding Method Incontinent External Catheter - Exam GENERAL DESCRIPTION: An elderly male lying in bed in no distress RESPIRATORY SYSTEM: Unlabored breathing , decreased breath sounds at bases HEART: S1 S2 regular rate and rhythm , ABDOMEN: Soft , no tenderness EXTREMITIES: Right big toe foot is currently dressed no drainage - Labs CBC & Chem 7: 10/02/24 04:27 10/02/24 04:27 Labs: Abnormal Lab Results - Last 24 Hours (Table) 10/01/24 10/01/24 10/02/24 Range/Units 17:12 19:54 04:27 WBC 13.89 H (4.50-10.00) X 10*3/uL RBC 3.81 L (4.40-5.60) X 10*6/uL Hgb 11.5 L (13.0-17.0) g/dL Hct 37.5 L (39.6-50.0) % MCV 98.4 H (80.0-97.0) FL MCHC 30.7 L (32.0-37.0) g/dL Immature Gran # 0.32 H (0.00-0.04) X 10*3/uL Neutrophils # 9.73 H (1.80-7.70) X 10*3/uL Monocytes # 1.08 H (0.20-1.00) X 10*3/uL NRBC/100 WBC Diff 0.02 H (0.00-0.01) X 10*3/uL Anion Gap (4.00-12.00) mmol/L BUN/Creatinine Ratio (12.00-20.00) Ratio Glucose (70-110) mg/dL POC Glucose (mg/dL) 284 H 224 H (70-110) mg/dL Calcium (8.7-10.3) mg/dL 10/02/24 10/02/24 10/02/24 Range/Units 04:27 05:13 12:25 WBC (4.50-10.00) X 10*3/uL RBC (4.40-5.60) X 10*6/uL Hgb (13.0-17.0) g/dL Hct (39.6-50.0) % MCV (80.0-97.0) FL MCHC (32.0-37.0) g/dL Immature Gran # (0.00-0.04) X 10*3/uL Neutrophils # (1.80-7.70) X 10*3/uL Monocytes # (0.20-1.00) X 10*3/uL NRBC/100 WBC Diff (0.00-0.01) X 10*3/uL Anion Gap 12.60 H (4.00-12.00) mmol/L BUN/Creatinine Ratio 22.86 H (12.00-20.00) Ratio Glucose 140 H (70-110) mg/dL POC Glucose (mg/dL) 152 H 246 H (70-110) mg/dL Calcium 8.5 L (8.7-10.3) mg/dL Microbiology - Last 24 Hours (Table) 09/29/24 15:30 Anaerobic Culture - Preliminary Toe - Right First Bacteroides fragilis Group 09/29/24 15:30 Gram Stain - Final Toe - Right First Wound Culture - Final Assessment and Plan (1) Diabetic gangrene Current Visit: No Status: Acute Code(s): E11.52 - TYPE 2 DIABETES W DIABETIC PERIPHERAL ANGIOPATHY W GANGRENE SNOMED Code(s): 500951619 (2) Diabetic infection of left foot Current Visit: No Status: Acute Code(s): E11.628 - TYPE 2 DIABETES MELLITUS WITH OTHER SKIN COMPLICATIONS; L08.9 - LOCAL INFECTION OF THE SKIN AND SUBCUTANEOUS TISSUE, UNSP SNOMED Code(s): 059102179 (3) Non-pressure chronic ulcer of other part of left foot with fat layer exposed Current Visit: No Status: Acute Code(s): L97.522 - NON-PRS CHRONIC ULCER OTH PRT LEFT FOOT W FAT LAYER EXPOSED SNOMED Code(s): 46028068390338035 Plan: 1patient with right big toe diabetic foot with a necrotic wound and evidence of secondary cellulitis will need to cover for the polymicrobial mariano associated with diabetic foot infection 2-patient also have a nonhealing wound on the left foot lateral border postdilatation of the left fourth and fifth toe but no significant purulent drainage was noticed from the site 3- vascular surgery has evaluated the patient and has ordered an angiogram, did have angioplasty completed 09/24/2024 4-local culture has been finalized with the Enterobacter, actinomyces and bacteroids 5patient is status post amputation of the right big toe and drainage of the abscess cultures did grow Bacteroides species 6patient may devise a 5-day course of Zosyn on discharge to finish 6-week course of therapy for his underlying osteomyelitis and abscess involving bilateral feet wound Dictation was produced using ciValueation software. please excuse any grammatical, word or spelling errors.
[2024-10-03 01:21] LABS: Glucose,Whole Blood 283 mg/dL (70-110)
--- NOTE | 2024-10-03 02:52 | CT ---
EXAM: CT Head Without Intravenous Contrast CLINICAL HISTORY: ITS.REASON CT Reason: fall TECHNIQUE: Axial computed tomography images of the head/brain without intravenous contrast. CTDI is 57.4 mGy and DLP is 1116 mGy-cm. This CT exam was performed using one or more of the following dose reduction techniques: automated exposure control, adjustment of the mA and/or kV according to patient size, and/or use of iterative reconstruction technique. COMPARISON: No relevant prior studies available. FINDINGS: Brain: No hemorrhage, herniation, or mass effect. Chronic microvascular ischemic changes. Ventricles: No hydrocephalus. Age related cerebral volume loss. Bones/joints: Unremarkable. Soft tissues: Unremarkable. Sinuses: No air fluid levels. Mastoid air cells: Clear. IMPRESSION: No acute hemorrhage, hydrocephalus, or mass effect.
[2024-10-03 05:42] LABS: Glucose,Whole Blood 219 mg/dL (70-110)
[2024-10-03 12:17] LABS: Glucose,Whole Blood 178 mg/dL (70-110)
--- NOTE | 2024-10-03 15:22 | P.PN ---
Subjective Progress Note Date: 10/03/24 Principal diagnosis: Reason for follow-up is bilateral diabetic foot ulcer cellulitis Patient is a 74-year-old male with a past medical history significant for diabetes mellitus GI bleed diabetic foot ulcer in this patient did have a left fourth and fifth toe amputation and debridement with a chronic nonhealing wound to the left foot admitted to hospital with a syncopal episode and patient also noticed to have a necrotic wound to the right big toe. Patient is status post right big toe amputation with significant purulence extending to the midfoot which has been cultured procedure completed on 09/29/2024 On today's evaluation that is 10/03/2024, Patient is afebrile patient is currently on room air and denies having any shortness of breath, the patient denies any chest pain or cough, the patient denies any nausea vomiting did not have any abdominal pain and no diarrhea pain to bilateral foot wound is currently controlled. No new labs has been obtained today Objective - Vital Signs Vital signs: Vital Signs Temp 97.5 F L 10/03/24 08:00 Pulse 98 10/03/24 08:00 Resp 16 10/03/24 08:00 BP 157/82 10/03/24 08:00 Pulse Ox 99 10/03/24 08:00 FiO2 Intake & Output 10/02/24 10/03/24 10/03/24 18:59 06:59 18:59 Intake Total 717 Output Total 2250 1000 Balance -1533 -1000 Intake: Oral 717 Output: Urine 2250 1000 Other: Voiding Method Incontinent Incontinent Incontinent External Catheter External Catheter External Catheter - Exam GENERAL DESCRIPTION: An elderly male lying in bed in no distress RESPIRATORY SYSTEM: Unlabored breathing , decreased breath sounds at bases HEART: S1 S2 regular rate and rhythm , ABDOMEN: Soft , no tenderness EXTREMITIES: Right big toe foot is currently dressed no drainage - Labs CBC & Chem 7: 10/02/24 04:27 10/02/24 04:27 Labs: Abnormal Lab Results - Last 24 Hours (Table) 10/02/24 10/02/24 10/03/24 Range/Units 17:39 20:03 01:19 POC Glucose (mg/dL) 454 H 186 H 283 H (70-110) mg/dL 10/03/24 10/03/24 Range/Units 05:40 12:16 POC Glucose (mg/dL) 219 H 178 H (70-110) mg/dL Microbiology - Last 24 Hours (Table) 09/29/24 15:30 Anaerobic Culture - Preliminary Toe - Right First Bacteroides fragilis Group 09/29/24 15:30 Gram Stain - Final Toe - Right First Wound Culture - Final Assessment and Plan (1) Diabetic gangrene Current Visit: No Status: Acute Code(s): E11.52 - TYPE 2 DIABETES W DIABETIC PERIPHERAL ANGIOPATHY W GANGRENE SNOMED Code(s): 575070155 (2) Diabetic infection of left foot Current Visit: No Status: Acute Code(s): E11.628 - TYPE 2 DIABETES MELLITUS WITH OTHER SKIN COMPLICATIONS; L08.9 - LOCAL INFECTION OF THE SKIN AND SUBCUTANEOUS TISSUE, UNSP SNOMED Code(s): 075703790 (3) Non-pressure chronic ulcer of other part of left foot with fat layer exposed Current Visit: No Status: Acute Code(s): L97.522 - NON-PRS CHRONIC ULCER OTH PRT LEFT FOOT W FAT LAYER EXPOSED SNOMED Code(s): 06091243068946638 Plan: 1patient with right big toe diabetic foot with a necrotic wound and evidence of secondary cellulitis will need to cover for the polymicrobial mariano associated with diabetic foot infection 2-patient also have a nonhealing wound on the left foot lateral border postdilatation of the left fourth and fifth toe but no significant purulent drainage was noticed from the site 3- vascular surgery has evaluated the patient and has ordered an angiogram, did have angioplasty completed 09/24/2024 4-local culture has been finalized with the Enterobacter, actinomyces and bacteroids 5patient is status post amputation of the right big toe and drainage of the abscess cultures did grow Bacteroides species 6patient did have a PICC line plan is a 4-week course of Zosyn on discharge to finish 6-week course of therapy for his underlying osteomyelitis and abscess and a close outpatient follow-up discussed with CRYPTOLOGIC TECHNICIAN TECHNICAL for admitting team Dictation was produced using Guanri dictation software. please excuse any grammatical, word or spelling errors. Time with Patient: Less than 30
[2024-10-03 17:18] LABS: Glucose,Whole Blood 212 mg/dL (70-110)
[2024-10-03 20:47] LABS: Glucose,Whole Blood 233 mg/dL (70-110)
--- NOTE | 2024-10-04 04:19 | P.PN ---
Subjective Progress Note Date: 10/03/24 Per medical H&P, "74-year-old male was brought in because he had a fall at the time they would not show to the patient is not visible patient denies a couple episode apparently patient had altered mental status patient is almost alert oriented x 3 when I evaluated the patient patient denied any UTI symptoms patient was complaining of generalized weakness. Patient does have leukocytosis without any evidence of infection at this time patient denied any cough. Patient blood sugars are high unknown what patient takes as patient does not know what she takes. Patient was discharged on 20 units of Lantus in month of February. Patient is hyponatremic and hyperkalemic." Progress note for 09/20/2024: Patient was seen at bedside today. Labs from today showed sodium 135, potassium 4.2, chloride 103, carbon dioxide 21.5, BUN 10.1, creatinine 0.7, glucose 163, hemoglobin A1c of 9.7. Vitals temperature of 98.2, pulse rate of 96, respiratory rate 19, blood pressure 135/74, O2 sat 98% on room air. Brain CT obtained last night showed no acute intracranial abnormality. Patient denies any acute complaints at this time. Patient denies any fever, chills, dizziness,, chest pain, shortness of breath/vomiting, belly pain. Patient was noted to have very big open wound on his right big toe with signs of necrosis. 09/21/2024 Patient is seen in follow-up this morning currently sitting up at the chair with multiple consultations following including vascular surgery and infectious d isease. Wound care consulted and pending at this time. Vascular surgery with plans of angiogram on 09/22/2024. Patient will be n.p.o. at midnight and will await report. Follow-up with repeat labs and continue current local wound care. Jayro wraps not recommended on lower extremities. Patient is afebrile denies chest pain or shortness of breath. Patient reports intermittent pain of the lower extremities although controlled on current regimen. 09/22/2024 Patient was seen at bedside today. Patient underwent an angiogram earlier this morning. Per operative report, on the right, the takeoff of the AT is visualized and found to be severely calcified. On the left, the popliteal artery has mild to moderate calcific disease with some narrowing distally at the infrapopliteal segment. The anterior tibial artery is visualized at its takeoff with significant calcific disease throughout. Patient reported no complaints at this time. Denies any fever, chills, chest pain, shortness of breath, nausea/vomiting. Vascular surgery plan to take the patient for debridement on Friday. WBC 16.2, hemoglobin 12.5, hematocrit 39.2, platelets 273, neutrophils 14, sodium 134, potassium 4.3, glucose 127. 09/23/2024 Patient was seen at bedside today. WBC 17.33, hemoglobin 11.3, hematocrit 34.5, platelet 260, sodium 137, potassium 4.0, BUN 14.8, creatinine 0.7, glucose 130. Vitals temperature 97.9, pulse rate of 98, respiratory rate 18, blood pressure 109/65, O2 sat 99% on room air. Patient reports no acute complaints at this time. Vascular surgery plan to take patient for an angiogram and possibly amputation of the right big toe on Friday. 09/24/2024 Patient was seen at bedside today. Patient underwent an angiogram of right lower extremity this morning. Reports no complaints at this time. WBC 19.24, hemoglobin 10.7, hematocrit 34.8, platelet 306. BMP showed sodium 139, potassium 4.1, chloride 105, carbon dioxide 18, BUN 20, creatinine 0.77, glucose 114. Left foot wound culture showed positive for Enterobacter cloacae which is sensitive to the Zosyn patient is currently receiving. 09/25/2024 Patient was seen at bedside today. Reports no complaints at this time. Patient will undergo possible amputation on Friday by vascular surgery. WBC 14.3, hemoglobin 10.7, hematocrit 32.6, platelets 311, sodium 137, potassium 3.9, chloride 106, carbon dioxide 20, BUN 16, creatinine 0.67, glucose 127. 09/26 Patient currently sitting up on the bedside Both l feet and needs a dressing. He has mild pain which looks controlled Imaging reviewed: CT angio showing severe atrophic changes of aorta extending into branch vessels and most severe findings in the bilateral lower extremities below the knees. 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 June on 09/24/2024 Patient currently covered with IV Zosyn and normal saline 75 mL/h 09/27/2024 Patient is seen and evaluated in follow-up continues with sitter at the bedside as patient is impulsive and high risk for falls. Patient being followed by vascular surgery and is planning possible amputation of the great toe this week. Patient also being followed by infectious disease maintained on antibiotics and will continue. Patient was lethargic and recommend limiting narcotic use. Encouraged increase activity as tolerated and sitting up more frequently. 09/28/2024 Patient seen in follow-up much more awake today sitting up at the side of the bed with sitter for safety. Patient has been getting up with assistance and will continue current regimen. Recommend updated PT/OT therapy notes and discuss further with case management/social work regarding discharge planning. Per vascular surgery patient will likely require IV antibiotics and infectious diseases following. Patient will receive a PICC line and orders placed for today. Patient is afebrile with no reports of chest pain or shortness of breath. Patient reports to tolerating diet and will continue current regimen. Continue monitoring Accu-Cheks before meals and at bedtime. Continue local wound care. 09/29/2024 Patient was seen at bedside today. Reports no acute complaints at this time. Patient will undergo amputation of right big toe this afternoon. WBC 5.26, hemoglobin 7.4, hematocrit 23.8, platelet 222, sodium 137, potassium 3.9, chloride 105, carbon dioxide 25.8, BUN 9.8, creatinine 0.6, glucose 95 09/30/2024 Patient was seen at bedside today. He underwent an amputation of right big toe yesterday afternoon. He denies any acute complaints at this time. Vascular surgery has cleared him for discharge and the plan is to follow-up with Dr. June in 1 to 2 weeks after discharge. Patient is currently pending placement at [facility]. 10/01/2024 Patient was seen at bedside today. Reports no acute complaints at this time. Currently waiting for final wound culture of right big toe to come back and pending placement at [facility]. 10/02/2024 Patient was seen at bedside today. Reports no acute complaints at this time. No chest pain, shortness of breath, fever, chills, nausea or vomiting. Wound culture of right big toe showed no growth. Pending placement at [facility]. 10/03/2024 Patient is seen and evaluated in follow-up and reported by nursing staff that he was attempting to get up with the IV pole and fell striking his head on the side of the bed. CT brain was obtained which was negative for acute process. Patien t with significant weakness is maintained on IV antibiotics with a PICC line and will continue 5 weeks of Zosyn on discharge. Infectious disease following and will be continued on local wound care. Plan send patient going to [facility] pending insurance authorization. Authorization was not started as final antibiotic recommendations were to be submitted. Awaiting finalized cultures from surgery and showing normal mariano. Continue with local wound care. Review of systems: Constitutional: No reports of fatigue, fever, or chills Cardiovascular: No reports of chest pain or palpitations Respiratory: No reports of shortness of breath or cough GI: No reports of nausea, vomiting, or diarrhea : No reports of dysuria or retention Neurovascular: reports of generalized weakness All medications have been reviewed Physical exam: Gen: This is a 74-year-old male who is awake, alert and oriented x 2, baseline, well-developed, elderly appearing, unkempt, obese HEENT: Head is atraumatic, normocephalic. Pupils equal, round. Sclerae is anicteric. NECK: Supple. No JVD. No lymphadenopathy. No thyromegaly. LUNGS: Diminished breath sounds bilaterally otherwise clear to auscultation. No wheezes or rhonchi. No intercostal retractions. HEART: S1, S2 are muffled ABDOMEN: Soft. Thin bowel sounds are present. No masses. No tenderness. EXTREMITIES: No pedal edema. No calf tenderness. Right lower extremity Jayro wrap applied with significant drainage that is dried noted on the dressing NEUROLOGICAL: Patient is awake, alert and oriented x2. Cranial nerves 2 through 12 are grossly intact. Diffusely weak Assessment: Fall, may be secondary to generalized weakness and dehydration Non-healing diabetic foot wounds, history of gangrene/osteomyelitis with previous toe amputation and debridement with Dr. June Peripheral artery disease. CT angio showing severe atrophic changes of aorta extending into branch vessels and most severe findings in the bilateral lower extremities below the knees. Leukocytosis possibly secondary to above avascular necrosis of the femoral head Hypovolemic hyponatremia, resolved Hyperkalemia with slight hemolysis, resolved Type 2 diabetes mellitus Generalized weakness GI prophylaxis DVT prophylaxis Full code Plan: Patient being followed by multiple consultations including infectious disease, vascular surgery, wound care Wound culture of right big toe showed no growth Underwent amputation of right big toe on 09/29/2024 by vascular surgery Vascular surgery has cleared him for discharge and plan is to follow-up with Dr. June 1 to 2 weeks outpatient after discharge Vascular surgery started patient on rivaroxaban 2.5 mg twice daily PICC line has been inserted on 09/28/2024 and is continued on Zosyn. Per ID recommendations patient will require additional 5 weeks of IV antibiotic therapy on discharge Plan is for patient to go to [facility] on discharge and currently pending insurance authorization. Authorization was not submitted as of yet as they were waiting finalized cultures from surgery. Culture showing no growth. Patient did have a fall overnight while attempting to get up and reports had difficulty with the IV pole and unwitnessed and reports to hitting his head on the bedside. CT brain was obtained and was negative for acute process. Monitor morning CBC and BMP Wound care recommended to continue with Santyl to bilateral lower extremities. Continue IV fluids at 75 cc an hour. Repeat labs ordered for a.m. Continue with sliding scale insulin and adjust accordingly Consider possible discharge planning in the next 24 to 48 hours once insurance authorization is obtained to [facility] The impression and plan of care has been dictated by Gloria Shore, Nurse Practitioner as directed. Dr. Africa MD I have performed a history and examination and MDM of this patient, discussed the same with the dictator, and agree with the dictator's assessment and plan as written ,documented as a scribe. Based on total visit time, I have performed more than 50% of the visit. Objective - Vital Signs Vital signs: Vital Signs Temp 97.3 F L 10/03/24 01:35 Pulse 72 10/03/24 01:35 Resp 16 10/03/24 01:35 BP 118/75 10/03/24 01:35 Pulse Ox 97 10/03/24 01:35 FiO2 Intake & Output 10/02/24 10/02/24 10/03/24 06:59 18:59 06:59 Intake Total 180 717 Output Total 1200 2250 1000 Balance -1020 -1533 -1000 Intake: Oral 180 717 Output: Urine 1200 2250 1000 Other: Voiding Method Incontinent Incontinent External Catheter External Catheter - Labs CBC & Chem 7: 10/02/24 04:27 10/02/24 04:27 Labs: Abnormal Lab Results - Last 24 Hours (Table) 10/02/24 10/02/24 10/02/24 Range/Units 04:27 04:27 12:25 WBC 13.89 H (4.50-10.00) X 10*3/uL RBC 3.81 L (4.40-5.60) X 10*6/uL Hgb 11.5 L (13.0-17.0) g/dL Hct 37.5 L (39.6-50.0) % MCV 98.4 H (80.0-97.0) FL MCHC 30.7 L (32.0-37.0) g/dL Immature Gran # 0.32 H (0.00-0.04) X 10*3/uL Neutrophils # 9.73 H (1.80-7.70) X 10*3/uL Monocytes # 1.08 H (0.20-1.00) X 10*3/uL NRBC/100 WBC Diff 0.02 H (0.00-0.01) X 10*3/uL Anion Gap 12.60 H (4.00-12.00) mmol/L BUN/Creatinine Ratio 22.86 H (12.00-20.00) Ratio Glucose 140 H (70-110) mg/dL POC Glucose (mg/dL) 246 H (70-110) mg/dL Calcium 8.5 L (8.7-10.3) mg/dL 10/02/24 10/02/24 10/03/24 Range/Units 17:39 20:03 01:19 WBC (4.50-10.00) X 10*3/uL RBC (4.40-5.60) X 10*6/uL Hgb (13.0-17.0) g/dL Hct (39.6-50.0) % MCV (80.0-97.0) FL MCHC (32.0-37.0) g/dL Immature Gran # (0.00-0.04) X 10*3/uL Neutrophils # (1.80-7.70) X 10*3/uL Monocytes # (0.20-1.00) X 10*3/uL NRBC/100 WBC Diff (0.00-0.01) X 10*3/uL Anion Gap (4.00-12.00) mmol/L BUN/Creatinine Ratio (12.00-20.00) Ratio Glucose (70-110) mg/dL POC Glucose (mg/dL) 454 H 186 H 283 H (70-110) mg/dL Calcium (8.7-10.3) mg/dL 10/03/24 Range/Units 05:40 WBC (4.50-10.00) X 10*3/uL RBC (4.40-5.60) X 10*6/uL Hgb (13.0-17.0) g/dL Hct (39.6-50.0) % MCV (80.0-97.0) FL MCHC (32.0-37.0) g/dL Immature Gran # (0.00-0.04) X 10*3/uL Neutrophils # (1.80-7.70) X 10*3/uL Monocytes # (0.20-1.00) X 10*3/uL NRBC/100 WBC Diff (0.00-0.01) X 10*3/uL Anion Gap (4.00-12.00) mmol/L BUN/Creatinine Ratio (12.00-20.00) Ratio Glucose (70-110) mg/dL POC Glucose (mg/dL) 219 H (70-110) mg/dL Calcium (8.7-10.3) mg/dL Microbiology - Last 24 Hours (Table) 09/29/24 15:30 Anaerobic Culture - Preliminary Toe - Right First Bacteroides fragilis Group 09/29/24 15:30 Gram Stain - Final Toe - Right First Wound Culture - Final
[2024-10-04 06:05] LABS: Glucose,Whole Blood 198 mg/dL (70-110)
[2024-10-04 08:06] VITALS: TEMP 97.7
[2024-10-04 09:03] LABS: Basophils # (A) 0.06 X 10*3/uL (0.00-0.10); Basophils % (A) 0.3 %; Eosinophils # (A) 0.47 X 10*3/uL (0.04-0.35); Eosinophils % (A) 2.6 %; HGB 10.6 g/dL (13.0-17.0); Lymphocytes # (A) 2.11 X 10*3/uL (0.90-5.00); Lymphocytes % (A) 11.8 %; MCH 30.6 pg (27.0-32.0); MCHC 32.1 g/dL (32.0-37.0); MCV 95.4 FL (80.0-97.0); Mean Platelet Volume 10.8 FL (9.5-12.2); Monocytes # (A) 1.26 X 10*3/uL (0.20-1.00); Monocytes % (A) 7.1 %; NRBC Per 100 WBC 0 X 10*3/uL (0.00-0.01); Neutrophils # (A) 13.75 X 10*3/uL (1.80-7.70); Platelet Count 339 X 10*3/uL (140-440); RBC 3.46 X 10*6/uL (4.40-5.60); RDW 12.3 % (11.5-14.5); WBC 17.86 X 10*3/uL (4.50-10.00)
[2024-10-04 09:12] LABS: BUN/Creat Ratio 23.43 Ratio (12.00-20.00); Blood Urea Nitrogen 16.4 mg/dL (9.0-27.0); Calcium 8.7 mg/dL (8.7-10.3); Chloride 101 mmol/L (96-109); Glucose 195 mg/dL (70-110); Potassium 4.1 mmol/L (3.5-5.5); Sodium 135 mmol/L (135-145)
--- NOTE | 2024-10-04 11:30 | P.PN ---
Subjective Progress Note Date: 10/04/24 Principal diagnosis: Cellulitis Patient seen and examined today as a follow-up. He is sitting up at the bedside. He is without any complaints. He is awaiting insurance authorization for subacute rehab. Objective - Vital Signs Vital signs: Vital Signs Temp 97.7 F 10/04/24 07:45 Pulse 46 L 10/04/24 07:45 Resp 15 10/04/24 07:45 BP 127/69 10/04/24 07:45 Pulse Ox 91 L 10/04/24 07:45 FiO2 Intake & Output 10/03/24 10/04/24 10/04/24 18:59 06:59 18:59 Intake Total 720 Output Total 9007 230 0340 Balance -0575 -381 -1100 Intake: Oral 720 Output: Urine 5423 072 3532 Other: Voiding Method Incontinent External Catheter - Exam General appearance: The patient is alert, oriented, appears in no acute di stress. HET: Head is normocephalic and atraumatic. Pupils are equal and reactive. Neck: Supple. Abdomen: Soft, nontender, nondistended. Extremities: Left foot with dressing clean dry and intact. Right foot with dressing clean dry and intact. Neurological: Alert and oriented. - Labs CBC & Chem 7: 10/04/24 05:09 10/04/24 05:09 Labs: Abnormal Lab Results - Last 24 Hours (Table) 10/03/24 10/03/24 10/03/24 Range/Units 12:16 17:17 20:46 POC Glucose (mg/dL) 178 H 212 H 233 H (70-110) mg/dL 10/04/24 Range/Units 06:04 POC Glucose (mg/dL) 198 H (70-110) mg/dL Assessment and Plan Assessment: 1. Gangrene right great toe status post great toe amputation 2. 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 Right foot cellulitis 4. Diabetes mellitus 5. History of left toe infection status post amputation 6. Smoker Plan: 1. Continue with antibiotic recommendations from infectious disease 2. Continue with local wound care per recommendations from wound clinic 3. Daily dressing change to right great toe amputation site with Dakin's wet-to-dry solution 4. Continue aspirin 81 mg daily and will add Xarelto 2.5 mg twice daily 5. Consistent carbohydrate diet 6. Nonweightbearing to right lower extremity 7. Consult PT/OT for reevaluation postsurgery 8. Recommend smoking cessation, continue with nicotine patch 9. Patient is cleared from vascular surgery for discharge. Follow-up with Dr. June in 1 to 2 weeks. Thank you for this consultation, patient is cleared for discharge from vascular surgery. We will sign off at this time. The impression and plan of care has been dictated as directed. Dr. June I performed a history and examination of this patient, discussed the same with the dictator. I agree with the dictator's note ,documented as a scribe. Any additional findings or plans will be noted.
--- NOTE | 2024-10-04 11:46 | P.PN ---
Subjective Progress Note Date: 10/04/24 Principal diagnosis: Reason for follow-up is bilateral diabetic foot ulcer cellulitis Patient is a 74-year-old male with a past medical history significant for diabetes mellitus GI bleed diabetic foot ulcer in this patient did have a left fourth and fifth toe amputation and debridement with a chronic nonhealing wound to the left foot admitted to hospital with a syncopal episode and patient also noticed to have a necrotic wound to the right big toe. Patient is status post right big toe amputation with significant purulence extending to the midfoot which has been cultured procedure completed on 09/29/2024 On today's evaluation that is 10/04/2023, patient has been afebrile, patient is breathing comfortably and is currently on room air, patient denies having any significant cough no chest pain, patient denies nausea vomiting or diarrhea and no abdominal pain or pain to bilateral foot wound area. Patient white count 17.86 creatinine 0.7 Objective - Vital Signs Vital signs: Vital Signs Temp 97.7 F 10/04/24 07:45 Pulse 46 L 10/04/24 07:45 Resp 15 10/04/24 07:45 BP 127/69 10/04/24 07:45 Pulse Ox 91 L 10/04/24 07:45 FiO2 Intake & Output 10/03/24 10/04/24 10/04/24 18:59 06:59 18:59 Intake Total 720 Output Total 4355 148 4419 Balance -1080 850 -1100 Intake: Oral 720 Output: Urine 0663 651 4274 Other: Voiding Method Incontinent External Catheter External Catheter - Exam GENERAL DESCRIPTION: An elderly male lying in bed in no distress RESPIRATORY SYSTEM: Unlabored breathing , decreased breath sounds at bases HEART: S1 S2 regular rate and rhythm , ABDOMEN: Soft , no tenderness EXTREMITIES: Right big toe foot is currently dressed no drainage - Labs CBC & Chem 7: 10/04/24 05:09 10/04/24 05:09 Labs: Abnormal Lab Results - Last 24 Hours (Table) 10/03/24 10/03/24 10/03/24 Range/Units 12:16 17:17 20:46 WBC (4.50-10.00) X 10*3/uL RBC (4.40-5.60) X 10*6/uL Hgb (13.0-17.0) g/dL Hct (39.6-50.0) % Immature Gran # (0.00-0.04) X 10*3/uL Neutrophils # (1.80-7.70) X 10*3/uL Monocytes # (0.20-1.00) X 10*3/uL Eosinophils # (0.04-0.35) X 10*3/uL BUN/Creatinine Ratio (12.00-20.00) Ratio Glucose (70-110) mg/dL POC Glucose (mg/dL) 178 H 212 H 233 H (70-110) mg/dL 10/04/24 10/04/24 10/04/24 Range/Units 05:09 05:09 06:04 WBC 17.86 H (4.50-10.00) X 10*3/uL RBC 3.46 L (4.40-5.60) X 10*6/uL Hgb 10.6 L (13.0-17.0) g/dL Hct 33.0 L (39.6-50.0) % Immature Gran # 0.21 H (0.00-0.04) X 10*3/uL Neutrophils # 13.75 H (1.80-7.70) X 10*3/uL Monocytes # 1.26 H (0.20-1.00) X 10*3/uL Eosinophils # 0.47 H (0.04-0.35) X 10*3/uL BUN/Creatinine Ratio 23.43 H (12.00-20.00) Ratio Glucose 195 H (70-110) mg/dL POC Glucose (mg/dL) 198 H (70-110) mg/dL Assessment and Plan (1) Diabetic gangrene Current Visit: No Status: Acute Code(s): E11.52 - TYPE 2 DIABETES W DIABETIC PERIPHERAL ANGIOPATHY W GANGRENE SNOMED Code(s): 975499488 (2) Diabetic infection of left foot Current Visit: No Status: Acute Code(s): E11.628 - TYPE 2 DIABETES MELLITUS WITH OTHER SKIN COMPLICATIONS; L08.9 - LOCAL INFECTION OF THE SKIN AND SUBCUTANEOUS TISSUE, UNSP SNOMED Code(s): 780210136 (3) Non-pressure chronic ulcer of other part of left foot with fat layer exposed Current Visit: No Status: Acute Code(s): L97.522 - NON-PRS CHRONIC ULCER OTH PRT LEFT FOOT W FAT LAYER EXPOSED SNOMED Code(s): 46754032204770116 Plan: 1patient with right big toe diabetic foot with a necrotic wound and evidence of secondary cellulitis will need to cover for the polymicrobial mariano associated with diabetic foot infection 2-patient also have a nonhealing wound on the left foot lateral border postdilatation of the left fourth and fifth toe but no significant purulent drainage was noticed from the site 3- vascular surgery has evaluated the patient and has ordered an angiogram, did have angioplasty completed 09/24/2024 4-local culture has been finalized with the Enterobacter, actinomyces and bacteroids 5patient is status post amputation of the right big toe and drainage of the abscess cultures did grow Bacteroides species 6patient white count is still elevated we will add Flagyl for better coverage of the bacteroids and continue with the Zosyn, plan is for a total of 6-week course of therapy for his underlying osteomyelitis and abscess Dictation was produced using [employer] dictation software. please excuse any grammatical, word or spelling errors. Time with Patient: Less than 30
[2024-10-04] MEDS: metroNIDAZOLE 500 MG TAB PO SCH (12:00)
[2024-10-04 12:20] LABS: Glucose,Whole Blood 209 mg/dL (70-110)
--- NOTE | 2024-10-04 14:02 | P.DS ---
Providers Date of admission: 09/19/24 01:58 Expected date of discharge: 10/04/24 Attending physician: Josiane Story Consults: 09/19/24 01:55 Consult Physician Routine Consulting Provider: Jose Rajput Consult Reason/Comments: syncope Do you want consulting provider notified?: Yes 09/20/24 00:21 Consult Physician Routine Consulting Provider: Halina June Consult Reason/Comments: Infected surgical site right foot and necrotic wound left great toe Do you want consulting provider notified?: Yes, Notify in am 09/20/24 00:22 Consult Physician Routine Consulting Provider: Tyler Medeiros Consult Reason/Comments: Infected surgical site and lower extremity cellulitis. Purulent drainage. Do you want consulting provider notified?: Yes, Notify in am Primary care physician: Sudheer Lubin Hospital Course: Hospital course: 74-year-old male with primary diabetic shoe to the patient is nonvisible patient denies syncopal episode. Patient altered mental status the patient is almost alert and oriented x 3 with patient. Patient denied any UTI symptoms patient was complaining of generalized weakness. Patient does have a leukocytosis without any evidence of infection at this time patient denies any cough. Patient blood sugars are high on home 1 patient takes as patient does not know when he takes it. Patient was discharged on 20 units of Lantus in February. Patient is hyponatremic and hyperkalemic. Progress note for 09/20/2024: Patient was seen at bedside today. Labs from today showed sodium 135, potassium 4.2, chloride 103, carbon dioxide 21.5, BUN 10.1, creatinine 0.7, glucose 163, hemoglobin A1c of 9.7. Vitals temperature of 98.2, pulse rate of 96, respiratory rate 19, blood pressure 135/74, O2 sat 98% on room air. Brain CT obtained last night showed no acute intracranial abnormality. Patient denies any acute complaints at this time. Patient denies any fever, chills, dizziness,, chest pain, shortness of breath/vomiting, belly pain. Patient was noted to have very big open wound on his right big toe with signs of necrosis. 09/21/2024 Patient is seen in follow-up this morning currently sitting up at the chair with multiple consultations following including vascular surgery and infectious disease. Wound care consulted and pending at this time. Vascular surgery with plans of angiogram on 09/22/2024. Patient will be n.p.o. at midnight and will await report. Follow-up with repeat labs and continue current local wound care. Jayro wraps not recommended on lower extremities. Patient is afebrile denies chest pain or shortness of breath. Patient reports intermittent pain of the lower extremities although controlled on current regimen. 09/22/2024 Patient was seen at bedside today. Patient underwent an angiogram earlier this morning. Per operative report, on the right, the takeoff of the AT is visualized and found to be severely calcified. On the left, the popliteal artery has mild to moderate calcific disease with some narrowing distally at the infrapopliteal segment. The anterior tibial artery is visualized at its takeoff with significant calcific disease throughout. Patient reported no complaints at this time. Denies any fever, chills, chest pain, shortness of breath, nausea/vomiting. Vascular surgery plan to take the patient for debridement on Friday. WBC 16.2, hemoglobin 12.5, hematocrit 39.2, platelets 273, neutrophils 14, sodium 134, potassium 4.3, glucose 127. 09/23/2024 Patient was seen at bedside today. WBC 17.33, hemoglobin 11.3, hematocrit 34.5, platelet 260, sodium 137, potassium 4.0, BUN 14.8, creatinine 0.7, glucose 130. Vitals temperature 97.9, pulse rate of 98, respiratory rate 18, blood pressure 109/65, O2 sat 99% on room air. Patient reports no acute complaints at this time. Vascular surgery plan to take patient for an angiogram and possibly amputation of the right big toe on Friday. 09/24/2024 Patient was seen at bedside today. Patient underwent an angiogram of right lower extremity this morning. Reports no complaints at this time. WBC 19.24, hemoglobin 10.7, hematocrit 34.8, platelet 306. BMP showed sodium 139, potassium 4.1, chloride 105, carbon dioxide 18, BUN 20, creatinine 0.77, glucose 114. Left foot wound culture showed positive for Enterobacter cloacae which is sensitive to the Zosyn patient is currently receiving. 09/25/2024 Patient was seen at bedside today. Reports no complaints at this time. Patient will undergo possible amputation on Friday by vascular surgery. WBC 14.3, hemoglobin 10.7, hematocrit 32.6, platelets 311, sodium 137, potassium 3.9, chloride 106, carbon dioxide 20, BUN 16, creatinine 0.67, glucose 127. 09/26 Patient currently sitting up on the bedside Both l feet and needs a dressing. He has mild pain which looks controlled Imaging reviewed: CT angio showing severe atrophic changes of aorta extending into branch vessels and most severe findings in the bilateral lower extremities below the knees. 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 June on 09/24/2024 Patient currently covered with IV Zosyn and normal saline 75 mL/h 09/27/2024 Patient is seen and evaluated in follow-up continues with sitter at the bedside as patient is impulsive and high risk for falls. Patient being followed by vascular surgery and is planning possible amputation of the great toe this week. Patient also being followed by infectious disease maintained on antibiotics and will continue. Patient was lethargic and recommend limiting narcotic use. Encouraged increase activity as tolerated and sitting up more frequently. 09/28/2024 Patient seen in follow-up much more awake today sitting up at the side of the bed with sitter for safety. Patient has been getting up with assistance and will continue current regimen. Recommend updated PT/OT therapy notes and discuss further with case management/social work regarding discharge planning. Per vascular surgery patient will likely require IV antibiotics and infectious diseases following. Patient will receive a PICC line and orders placed for today. Patient is afebrile with no reports of chest pain or shortness of breath. Patient reports to tolerating diet and will continue current regimen. Continue monitoring Accu-Cheks before meals and at bedtime. Continue local wound care. 09/29/2024 Patient was seen at bedside today. Reports no acute complaints at this time. Patient will undergo amputation of right big toe this afternoon. WBC 5.26, he moglobin 7.4, hematocrit 23.8, platelet 222, sodium 137, potassium 3.9, chloride 105, carbon dioxide 25.8, BUN 9.8, creatinine 0.6, glucose 95 09/30/2024 Patient was seen at bedside today. He underwent an amputation of right big toe yesterday afternoon. He denies any acute complaints at this time. Vascular surgery has cleared him for discharge and the plan is to follow-up with Dr. June in 1 to 2 weeks after discharge. Patient is currently pending placement at [facility]. 10/01/2024 Patient was seen at bedside today. Reports no acute complaints at this time. Currently waiting for final wound culture of right big toe to come back and pending placement at [facility]. 10/02/2024 Patient was seen at bedside today. Reports no acute complaints at this time. No chest pain, shortness of breath, fever, chills, nausea or vomiting. Wound culture of right big toe showed no growth. Pending placement at [facility]. 10/03/2024 Patient is seen and evaluated in follow-up and reported by nursing staff that he was attempting to get up with the IV pole and fell striking his head on the side of the bed. CT brain was obtained which was negative for acute process. Patient with significant weakness is maintained on IV antibiotics with a PICC line and will continue 5 weeks of Zosyn on discharge. Infectious disease following and will be continued on local wound care. Plan send patient going to [facility] pending insurance authorization. Authorization was not started as final antibiotic recommendations were to be submitted. Awaiting finalized cultures from surgery and showing normal mariano. Continue with local wound care. Patient was seen at bedside on 10/04/2024. Reports no acute complaints at this time. Patient has been accepted at [facility]. He is currently medically stable to be transferred to rehab facility. Per ID recommendation, patient will continue with 5-week of IV Zosyn via a PICC line and oral Flagyl antibiotic therapy for his underlying osteomyelitis and abscess. Aspirin 81 mg daily, losartan 25 mg daily, insulin glargine 20 units daily, Farxiga 10 mg daily, Flagyl 500 mg 3 times daily, atorvastatin 40 mg daily, Protonix 40 mg daily, Xarelto 2.5 mg twice daily added to patient's home medication list. Patient is recommended to follow-up with vascular surgery Dr. June in 1 to 2 weeks and primary care physician in 1 to 2 days after discharge. Physical examination at discharge: GENERAL: This is a 74-year-old in no apparent distress at the time of examination. Pleasant and cooperative. HEENT: Head is atraumatic, normocephalic. Pupils are equal, round, and reactive to light. Sclerae anicteric. Conjunctivae are clear. Mucus membranes of the mouth are moist. Neck is supple. RESPIRATORY: Clear to auscultation. No wheezes, rales, or rhonchi. No use of accessory muscles. Patient maintaining oxygen saturation greater than 92%. No chest wall tenderness is noted on palpation or with deep breathing. CARDIOVASCULAR: Regular rate and rhythm. S1 and S2 noted. No systolic or diastolic murmur auscultated. No JVD noted. No S3 or S4 noted. GASTROINTESTINAL: No distention noted. Abdomen soft and round. Normal active bowel sounds auscultated x 4 quadrants. No pain or tenderness noted upon palpation. INTEGUMENTARY: No cyanosis. No jaundice. No rashes noted. No cellulitis noted. EXTREMITIES: 2+ peripheral pulses. No evidence of peripheral edema. No calf tenderness noted. Right lower extremity Jayro wrap applied with significant drainage that is dried noted on the dressing NEUROLOGIC: Cranial nerves II-XII intact. PSYCHIATRIC: Awake, alert. Appropriate affect. Intact judgement and insight. Patient Condition at Discharge: Stable Plan - Discharge Summary Discharge Rx Participant: No New Discharge Prescriptions: New Aspirin 81 mg PO DAILY 30 Days #30 tab Losartan [Cozaar] 25 mg PO DAILY 30 Days #30 tab Piperacillin-Tazobactam [Zosyn] 3.375 gm IVPB Q8HR 35 Days each Insulin Glargine,Hum.rec.anlog [Lantus Solostar Pen] 20 units SQ DAILY #2 each Dapagliflozin Propanediol [Farxiga] 10 mg PO DAILY 30 Days #30 tab metroNIDAZOLE [Flagyl] 500 mg PO TID 35 Days #105 tab Atorvastatin [Lipitor] 40 mg PO DAILY 30 Days #30 tab Pantoprazole [Protonix] 40 mg PO AC-BRKFST 30 Days #30 tab Rivaroxaban [Xarelto] 2.5 mg PO BID 30 Days #60 tab Discharge Medication List Aspirin 81 mg PO DAILY 30 Days #30 tab 10/04/24 [Rx] Atorvastatin [Lipitor] 40 mg PO DAILY 30 Days #30 tab 10/04/24 [Rx] Dapagliflozin Propanediol [Farxiga] 10 mg PO DAILY 30 Days #30 tab 10/04/24 [Rx] Insulin Glargine,Hum.rec.anlog [Lantus Solostar Pen] 20 units SQ DAILY #2 each 10/04/24 [Rx] Losartan [Cozaar] 25 mg PO DAILY 30 Days #30 tab 10/04/24 [Rx] Pantoprazole [Protonix] 40 mg PO AC-BRKFST 30 Days #30 tab 10/04/24 [Rx] Piperacillin-Tazobactam [Zosyn] 3.375 gm IVPB Q8HR 35 Days each 10/04/24 [Rx] Rivaroxaban [Xarelto] 2.5 mg PO BID 30 Days #60 tab 10/04/24 [Rx] metroNIDAZOLE [Flagyl] 500 mg PO TID 35 Days #105 tab 10/04/24 [Rx] Follow up Appointment(s)/Referral(s): Sudheer Lubin MD [Primary Care Provider] - 1-2 days Halina June DO [STAFF PHYSICIAN] - 1 Week (Follow-up in 1 to 2 weeks) Patient Instructions/Handouts: Rivaroxaban (By mouth), How to Stop Smoking (DC), Cigarette Smoking and Your Health (GEN) Activity/Diet/Wound Care/Special Instructions: Non-weightbearing to right lower extremity. Daily wet-to-dry dressing change with Dakin solution, wrapped with Kerlix and Jayro wrap Recommend smoking cessation, continue nicotine patches. Quit smoking hotline provided Discharge Disposition: TRANSFER TO SNF/ECF
[2024-10-04 14:21] VITALS: BP 112/65; PULSE 77; RESP 16
== END 2024-10-04 16:40 | DRG 240 ==
LOC: EC 22:28 → 6NMEDSUR 09-19 01:57 → OBSVTOIN 09-19 01:58 → 6NMEDSUR 09-19 12:29
PROVIDERS: ADMIT Hospitalist; ATTEND Hospitalist
PROC: 0HQ0XZZ Repair Scalp Skin, External Approach (ICD-10-PCS; 2024-09-19)
PROC: B41D1ZZ Fluoroscopy of Aorta and Bilateral Lower Extremity Arteries using Low Osmolar Contrast (ICD-10-PCS; 2024-09-22 07:30)
PROC: B41G1ZZ Fluoroscopy of Left Lower Extremity Arteries using Low Osmolar Contrast (ICD-10-PCS; 2024-09-24)
PROC: 02HV33Z Insertion of Infusion Device into Superior Vena Cava, Percutaneous Approach (ICD-10-PCS; 2024-09-29)
PROC: 0Y6M0Z4 Detachment at Right Foot, Complete 1st Ray, Open Approach (ICD-10-PCS; principal; 2024-09-29 14:30)
DX: E11.52 Type 2 diabetes mellitus with diabetic peripheral angiopathy with gangrene (principal); E87.1 Hypo-osmolality and hyponatremia; L03.115 Cellulitis of right lower limb; L97.513 Non-pressure chronic ulcer of other part of right foot with necrosis of muscle; B96.6 Bacteroides fragilis [B. fragilis] as the cause of diseases classified elsewhere; E11.621 Type 2 diabetes mellitus with foot ulcer; I77.811 Abdominal aortic ectasia; M86.8X7 Other osteomyelitis, ankle and foot; M87.9 Osteonecrosis, unspecified; E11.628 Type 2 diabetes mellitus with other skin complications; E11.69 Type 2 diabetes mellitus with other specified complication; E11.65 Type 2 diabetes mellitus with hyperglycemia; S01.01XA Laceration without foreign body of scalp, initial encounter; L97.524 Non-pressure chronic ulcer of other part of left foot with necrosis of bone; Z89.422 Acquired absence of other left toe(s); Z89.421 Acquired absence of other right toe(s); Z79.4 Long term (current) use of insulin; H91.90 Unspecified hearing loss, unspecified ear; E87.5 Hyperkalemia; E86.0 Dehydration; E86.1 Hypovolemia; R55 Syncope and collapse; B96.89 Other specified bacterial agents as the cause of diseases classified elsewhere; F17.210 Nicotine dependence, cigarettes, uncomplicated; R60.0 Localized edema; T38.3X6A Underdosing of insulin and oral hypoglycemic [antidiabetic] drugs, initial encounter; Z91.148 Patient's other noncompliance with medication regimen for other reason; I51.7 Cardiomegaly; Z91.81 History of falling; Y92.230 Patient room in hospital as the place of occurrence of the external cause; R25.1 Tremor, unspecified; W19.XXXA Unspecified fall, initial encounter; W18.30XA Fall on same level, unspecified, initial encounter; Y92.008 Other place in unspecified non-institutional (private) residence as the place of occurrence of the external cause; Z79.84 Long term (current) use of oral hypoglycemic drugs; Z87.39 Personal history of other diseases of the musculoskeletal system and connective tissue; Z91.199 Patient's noncompliance with other medical treatment and regimen due to unspecified reason
CPT/HCPCS: 12001; 36200; 36415; 36573; 37228; 70450; 71045; 72170; 75625; 75635; 75716; 80048; 80053; 80061; 80306; 80320; 81001; 83036; 83605; 83735; 84484; 85025; 85610; 85730; 87040; 87070; 87075; 87077; 87186; 87205; 93005; 93306; 93880; 96360; 96361; 99285

== ENCOUNTER 2024-11-10 11:06 | Inpatient (IN) | payer MEDICARE ==
[2024-11-10 12:00] LABS: Basophils % (A) 0 %; Eosinophils # (A) 0.2 k/uL (0-0.7); Eosinophils % (A) 2 %; HCT 39.4 % (39.0-53.0); HGB 12.1 gm/dL (13.0-17.5); Hypochromasia Moderate; Lymphocytes # (A) 1.6 k/uL (1.0-4.8); Lymphocytes % (A) 19 %; MCH 29.7 pg (25.0-35.0); MCHC 30.7 g/dL (31.0-37.0); MCV 96.8 fL (80.0-100.0); Mean Platelet Volume 8.5; Monocytes # (A) 0.7 k/uL (0-1.0); Monocytes % (A) 8 %; Neutrophils # (A) 5.6 k/uL (1.3-7.7); Neutrophils % (A) 68 %; Platelet Count 286 k/uL (150-450); RBC 4.07 m/uL (4.30-5.90); RDW 13.8 % (11.5-15.5); WBC 8.2 k/uL (3.8-10.6)
[2024-11-10 12:07] LABS: ALT 11 U/L (4-49); African American GFR (CKD) >90 (>60 ml/min/1.73 sqM); Albumin 2.9 g/dL (3.5-5.0); Anion Gap 7 mmol/L; Blood Urea Nitrogen 17 mg/dL (9-20); C Reactive Protein 2.2 mg/dL (<1.0); Calcium 8.7 mg/dL (8.4-10.2); Carbon Dioxide 25 mmol/L (22-30); Chloride 102 mmol/L (98-107); Glucose 106 mg/dL (74-99); Non-African American GFR(CKD) >90 (>60 ml/min/1.73 sqM); Sodium 134 mmol/L (137-145); Total Bilirubin 0.6 mg/dL (0.2-1.3); Total Protein 6.7 g/dL (6.3-8.2)
[2024-11-10 12:08] LABS: AST 29 U/L (17-59); Alkaline Phosphatase 82 U/L (38-126); Magnesium 2.1 mg/dL (1.6-2.3); Potassium 4.7 mmol/L (3.5-5.1)
--- NOTE | 2024-11-10 12:19 | ED ---
Extremity Problem HPI - General Chief complaint: Extremity Problem,Nontraumatic Stated complaint: leg wound Time Seen by Provider: 11/10/24 11:12 Source: patient, EMS, RN notes reviewed Mode of arrival: EMS Limitations: physical limitation - History of Present Illness Initial comments: 74-year-old male presents emergency department from [facility] for evaluation of right leg infection. Patient had recent amputation in September by Dr. June. Patient states that the infection has seemed to spread to his foot, leg is worsening patient sent over for evaluation and probable mission, surgery. Patient does admit that he felt infections getting worse but has no other complaints. - Related Data Previous Rx's Medication Instructions Recorded Aspirin 81 mg PO DAILY 30 Days #30 tab 10/04/24 Atorvastatin [Lipitor] 40 mg PO DAILY 30 Days #30 tab 10/04/24 Dapagliflozin Propanediol [Farxiga] 10 mg PO DAILY 30 Days #30 tab 10/04/24 Insulin Glargine,Hum.rec.anlog 20 units SQ DAILY #2 each 10/04/24 [Lantus Solostar Pen] Losartan [Cozaar] 25 mg PO DAILY 30 Days #30 tab 10/04/24 Pantoprazole [Protonix] 40 mg PO AC-BRKFST 30 Days #30 tab 10/04/24 Piperacillin-Tazobactam [Zosyn] 3.375 gm IVPB Q8HR 35 Days each 10/04/24 Rivaroxaban [Xarelto] 2.5 mg PO BID 30 Days #60 tab 10/04/24 metroNIDAZOLE [Flagyl] 500 mg PO TID 35 Days #105 tab 10/04/24 Allergies Allergy/AdvReac Type Severity Reaction Status Date / Time No Known Allergies Allergy Verified 11/10/24 11:12 Review of Systems ROS Statement: Those systems with pertinent positive or pertinent negative responses have been documented in the HPI. ROS Other: All systems not noted in ROS Statement are negative. Past Medical History Past Medical History: Diabetes Mellitus, GI Bleed, Hearing Disorder / Deafness Additional Past Medical History / Comment(s): unhealing 2 wounds left foot -from rubbing on medical boot, HX of Diverticultis. Type IIDiabetic. QUILEUTE. Perforated ulcer. History of Any Multi-Drug Resistant Organisms: None Reported Past Surgical History: Hernia Repair Additional Past Surgical History / Comment(s): Hernia at age 3. Stomach surgery. Colonoscopy,amputation 2nd digit left foot. Recent amputation of the 5th digit foot -May 2024. Past Anesthesia/Blood Transfusion Reactions: No Reported Reaction Additional Past Anesthesia/Blood Transfusion Reaction / Comment(s): no hx blood transfusion Past Psychological History: No Psychological Hx Reported Smoking Status: Current every day smoker Past Alcohol Use History: Occasional Past Drug Use History: None Reported - Past Family History Sister(s) Family Medical History: Cancer Additional Family Medical History / Comment(s): Breast cancer General Exam Limitations: altered mental status, physical limitation General appearance: alert, in no apparent distress Head exam: Present: atraumatic, normocephalic, normal inspection Eye exam: Present: normal appearance, PERRL, EOMI. Absent: scleral icterus, conjunctival injection, periorbital swelling Respiratory exam: Present: normal lung sounds bilaterally. Absent: respiratory distress, wheezes, rales, rhonchi, stridor Cardiovascular Exam: Present: regular rate, normal rhythm, normal heart sounds. Absent: systolic murmur, diastolic murmur, rubs, gallop, clicks Extremities exam: Present: other (Extensive wounds, erythema open sores to the right foot, right lower leg prior surgical incisions noted foul odor) Course Vital Signs 11/10/24 11:10 Temperature 98 F Pulse Rate 95 Respiratory 20 Rate Blood Pressure 109/71 O2 Sat by Pulse 99 Oximetry Medical Decision Making - Medical Decision Making Was pt. sent in by a medical professional or institution (, PA, SAMPLE WORKER, urgent care, hospital, or [facility]...) When possible be specific @ -Carmen Did you speak to anyone other than the patient for history (EMS, parent, family, police, friend...)? What history was obtained from this source @ -No Did you review nursing and triage notes (agree or disagree)? Why? @ -I reviewed and agree with nursing and triage notes Were old charts reviewed (outside hosp., previous admission, EMS record, old EKG, old radiological studies, urgent care reports/EKG's, [facility] records)? Report findings @ -No old charts were reviewed Differential Diagnosis (chest pain, altered mental status, abdominal pain women, abdominal pain men, vaginal bleeding, weakness, fever, dyspnea, syncope, headache, dizziness, GI bleed, back pain, seizure, CVA, palpatations, mental health, musculoskeletal)? @ -Osteomyelitis, diabetic foot infection, cellulitis EKG interpreted by me (3pts min.). @ -None X-rays interpreted by me (1pt min.). @ -Right foot showing evidence of osteomyelitis, X-ray right tib-fib showing soft tissue swelling CT interpreted by me (1pt min.). @ -None done U/S interpreted by me (1pt. min.). @ -None done What testing was considered but not performed or refused? (CT, X-rays, U/S, labs)? Why? @ -None What meds were considered but not given or refused? Why? @ -None Did you discuss the management of the patient with other professionals (professionals i.e. DrMika, PA, SAMPLE WORKER, lab, RT, psych nurse, socially responsible investment adviser, local company truck driver, teacher, supervisor dog license officer, director case)? Give summary @ -DrMika Sheet for admission with consult to Dr. June and Dr. Medeiros Was smoking cessation discussed for >3mins.? @ -No Was critical care preformed (if so, how long)? @ -No Were there social determinants of health that impacted care today? How? (Homelessness, low income, unemployed, alcoholism, drug addiction, transportation, low edu. Level, literacy, decrease access to med. care, half-way, rehab)? @ -No Was there de-escalation of care discussed even if they declined (Discuss DNR or withdrawal of care, Hospice)? DNR status @ -No What co-morbidities impacted this encounter? (DM, HTN, Smoking, COPD, CAD, Cancer, CVA, ARF, Chemo, Hep., AIDS, mental health diagnosis, sleep apnea, morbid obesity)? @ -None Was patient admitted / discharged? Hospital course, mention meds given and route, prescriptions, significant lab abnormalities, going to OR and other pertinent info. @ -Admitted patient has evidence of osteomyelitis diabetic foot infection with cellulitic changes. Patient started dual antibiotic therapy blood culture drawn consults were ordered. Undiagnosed new problem with uncertain prognosis? @ -No Drug Therapy requiring intensive monitoring for toxicity (Heparin, Nitro, Insulin, Cardizem)? @ -No Were any procedures done? @ -No Diagnosis/symptom? @ -Osteomyelitis right foot, cellulitis diabetic foot infection Acute, or Chronic, or Acute on Chronic? @ -Acute Uncomplicated (without systemic symptoms) or Complicated (systemic symptoms)? @ -Complicated Side effects of treatment? @ -No Exacerbation, Progression, or Severe Exacerbation? @ -No Poses a threat to life or bodily function? How? (Chest pain, [place], [place], pneumonia, PE, COPD, DKA, ARF, appy, cholecystitis, CVA, Diverticulitis, Homicidal, Suicidal, threat to staff... and all critical care pts) @ -Yes possible sepsis causing endorgan failure - Lab Data Result diagrams: 11/10/24 11:44 11/10/24 11:44 Lab Results 11/10/24 11/10/24 11/10/24 Range/Units 11:44 11:44 11:44 WBC 8.2 (3.8-10.6) k/uL RBC 4.07 L (4.30-5.90) m/uL Hgb 12.1 L (13.0-17.5) gm/dL Hct 39.4 (39.0-53.0) % MCV 96.8 (80.0-100.0) fL MCH 29.7 (25.0-35.0) pg MCHC 30.7 L (31.0-37.0) g/dL RDW 13.8 (11.5-15.5) % Plt Count 286 (150-450) k/uL MPV 8.5 Neutrophils % 68 % Lymphocytes % 19 % Monocytes % 8 % Eosinophils % 2 % Basophils % 0 % Neutrophils # 5.6 (1.3-7.7) k/uL Lymphocytes # 1.6 (1.0-4.8) k/uL Monocytes # 0.7 (0-1.0) k/uL Eosinophils # 0.2 (0-0.7) k/uL Basophils # 0.0 (0-0.2) k/uL Hypochromasia Moderate PT 14.3 H (10.0-12.5) sec INR 1.4 H (<1.2) APTT 25.0 (22.0-30.0) sec Sodium 134 L (137-145) mmol/L Potassium 4.7 (3.5-5.1) mmol/L Chloride 102 (98-107) mmol/L Carbon Dioxide 25 (22-30) mmol/L Anion Gap 7 mmol/L BUN 17 (9-20) mg/dL Creatinine 0.64 L (0.66-1.25) mg/dL Est GFR (CKD-EPI)AfAm >90 (>60 ml/min/1.73 sqM) Est GFR (CKD-EPI)NonAf >90 (>60 ml/min/1.73 sqM) Glucose 106 H (74-99) mg/dL Calcium 8.7 (8.4-10.2) mg/dL Magnesium 2.1 (1.6-2.3) mg/dL Total Bilirubin 0.6 (0.2-1.3) mg/dL AST 29 (17-59) U/L ALT 11 (4-49) U/L Alkaline Phosphatase 82 (38-126) U/L C-Reactive Protein 2.2 H (<1.0) mg/dL Total Protein 6.7 (6.3-8.2) g/dL Albumin 2.9 L (3.5-5.0) g/dL Disposition Clinical Impression: Right foot infection, Foot osteomyelitis, right, Cellulitis, leg Disposition: ADMITTED IP TO THIS HOSP Condition: Poor Referrals: Sudheer Lubin MD [Primary Care Provider] - 1-2 days Time of Disposition: 13:14
[2024-11-10 12:23] LABS: INR 1.4 (<1.2); Prothrombin Time 14.3 sec (10.0-12.5)
[2024-11-10] MEDS ORDERED: VANCOMYCIN IV PER PHARMACY 1 EACH MISC MISCELLANE PRN (12:41)
--- NOTE | 2024-11-10 12:53 | XR ---
EXAMINATION TYPE: XR foot limited RT DATE OF EXAM: 11/10/2024 12:36 PM COMPARISON: None. CLINICAL INDICATION: Male, 74 years old with history of infection, pain TECHNIQUE: 2 there is osteopenia of the distal metatarsals. There may be loss of the cortex of the di stal fourth metatarsal. view(s) obtained. FINDINGS: There is amputation of the first digit. Vascular calcification is present. Soft tissue swelling appea rs to be over the fourth and fifth digits. Anterior margin of the amputated first metatarsal appears normal. Hammertoes are present. IMPRESSION: 1. There is a suspicion of cortical erosion of the distal fourth metatarsal. Osteomyelitis at this l evel should be considered [facility], , 11/10/2024 12:50 PM
--- NOTE | 2024-11-10 12:55 | XR ---
EXAMINATION TYPE: XR tibia fibula RT DATE OF EXAM: 11/10/2024 12:36 PM COMPARISON: None. CLINICAL INDICATION: Male, 74 years old with history of infection, pain TECHNIQUE: 2 view(s) obtained. FINDINGS: No suspicious foreleg cortical erosion identified. Vascular calcification is present. Ankle mortise a ppears intact. IMPRESSION: 1. No suspicious abnormalities of the right foreleg to suggest osteomyelitis or more superficial inf ection radiographically apparent [facility], , 11/10/2024 12:52 PM
[2024-11-10] MEDS ORDERED: NALOXONE 0.4 MG/ML 1 ML VIAL IV PRN (13:10)
[2024-11-10] MEDS ORDERED: DEXTROSE 50% SYRINGE 50 ML IVP PRN ×2 (13:33)
--- NOTE | 2024-11-10 13:33 | P.HPIM ---
History of Present Illness This is a pleasant 74 years old male with past medical history of multiple medical problems including diabetes mellitus. He was recently in this hospital about 1 month ago and where he was treated for infected diabetic right foot u lcer. He was evaluated by vascular surgery team and he underwent right lower extremity angiogram and on 09/24 followed by right great toe ray amputation.Patient was discharged on Zosyn for 35 days as well as his home medication including Xarelto, diabetic and heart medication. He presents this time with worsening infection and swelling and redness of the whole right foot extending into the distal leg with multiple purulent discharge and ulceration especially on the medial aspect of the right big toe base and on the front of the ankle as well as gangrenous second toe. Patient states this has been going on for the last 2 to 3 weeks. He denies any other complaint like chest pain dyspnea or GI/ symptoms or neurological symptoms He smokes about half pack to 1 pack/day and he was counseled to quit but he declines. He drinks alcohol 3 times a week mainly to be cans of beer. He denies illicit drugs He is hemodynamically stable Labs basically unremarkable of the CBC, BMP, LFT and INR X-ray of the right tibia and fibula showing no osteomyelitis changes. Patient started on Zosyn and IV vancomycin emergency room admitted with ID team, consult and vascular surgery team consult Review of Systems Review of systems CONSTITUTIONAL: No fever, no malaise, no fatigue. HEENT: No recent visual problems or hearing problems. Denied any sore throat. CARDIOVASCULAR: No orthopnea, PND, no palpitations, no syncope. PULMONARY: No shortness of breath, no cough, no hemoptysis. GASTROINTESTINAL: No diarrhea, no nausea, no vomiting, no abdominal pain. Normoactive bowel sounds. NEUROLOGICAL: No headaches, no weakness, no numbness. HEMATOLOGICAL: Denies any bleeding or petechiae. GENITOURINARY: Denies any burning micturition, frequency, or urgency. MUSCULOSKELETAL/RHEUMATOLOGICAL: Denies any joint pain, swelling, or any muscle pain. ENDOCRINE: Denies any polyuria or polydipsia. Past Medical History Past Medical History: Diabetes Mellitus, GI Bleed, Hearing Disorder / Deafness Additional Past Medical History / Comment(s): unhealing 2 wounds left foot -from rubbing on medical boot, HX of Diverticultis. Type IIDiabetic. [place]. Perforated ulcer. History of Any Multi-Drug Resistant Organisms: None Reported Past Surgical History: Hernia Repair Additional Past Surgical History / Comment(s): Hernia at age 3. Stomach surgery. Colonoscopy,amputation 2nd digit left foot. Recent amputation of the 5th digit foot -May 2024. Past Anesthesia/Blood Transfusion Reactions: No Reported Reaction Additional Past Anesthesia/Blood Transfusion Reaction / Comment(s): no hx blood transfusion Past Psychological History: No Psychological Hx Reported Smoking Status: Current every day smoker Past Alcohol Use History: Occasional Past Drug Use History: None Reported - Past Family History Sister(s) Family Medical History: Cancer Additional Family Medical History / Comment(s): Breast cancer Medications and Allergies Home Medications Medication Instructions Recorded Confirmed Type Aspirin 81 mg PO DAILY 30 Days #30 tab 10/04/24 Rx Atorvastatin [Lipitor] 40 mg PO DAILY 30 Days #30 tab 10/04/24 Rx Dapagliflozin Propanediol [Farxiga] 10 mg PO DAILY 30 Days #30 tab 10/04/24 Rx Insulin Glargine,Hum.rec.anlog 20 units SQ DAILY #2 each 10/04/24 Rx [Lantus Solostar Pen] Losartan [Cozaar] 25 mg PO DAILY 30 Days #30 tab 10/04/24 Rx Pantoprazole [Protonix] 40 mg PO AC-BRKFST 30 Days #30 tab 10/04/24 Rx Piperacillin-Tazobactam [Zosyn] 3.375 gm IVPB Q8HR 35 Days each 10/04/24 Rx Rivaroxaban [Xarelto] 2.5 mg PO BID 30 Days #60 tab 10/04/24 Rx metroNIDAZOLE [Flagyl] 500 mg PO TID 35 Days #105 tab 10/04/24 Rx Allergies Allergy/AdvReac Type Severity Reaction Status Date / Time No Known Allergies Allergy Verified 11/10/24 11:12 Physical Exam Vitals: Vital Signs Temp Pulse Resp BP Pulse Ox 11/10/24 11:10 98 F 95 20 109/71 99 Intake and Output 11/09/24 11/10/24 11/10/24 22:59 06:59 14:59 Other: Weight 79.379 kg GENERAL: The patient is alert and oriented x3, not in any acute distress. Well developed, well nourished. HEENT: Pupils are round and equally reacting to light. EOMI. No scleral icterus. No conjunctival pallor. Normocephalic, atraumatic. No pharyngeal erythema. No thyromegaly. CARDIOVASCULAR: S1 and S2 present. No murmurs, rubs, or gallops. PULMONARY: Chest is clear to auscultation, no wheezing , no crackles. ABDOMEN: Soft, nontender, nondistended, normoactive bowel sounds. No palpable organomegaly. MUSCULOSKELETAL: No joint swelling or deformity. EXTREMITIES: No cyanosis, clubbing, or pedal edema. -He is status post amputated right first big toe. He has multiple ulceration, mild swelling and redness extending from the lower half of the leg through the whole foot with multiple ulceration, d the biggest ulcer is at the base of the first toe and there is another big vertical ulcer in the front of the ankle with purulent discharge. Also there is gangrenous changes of the second right toe NEUROLOGICAL: Gross neurological examination did not reveal any focal deficits. SKIN: No rashes. no petechiae. Results CBC & Chem 7: 11/10/24 11:44 11/10/24 11:44 Labs: Abnormal Lab Results - Last 24 Hours (Table) 11/10/24 11/10/24 11/10/24 Range/Units 11:44 11:44 11:44 RBC 4.07 L (4.30-5.90) m/uL Hgb 12.1 L (13.0-17.5) gm/dL MCHC 30.7 L (31.0-37.0) g/dL PT 14.3 H (10.0-12.5) sec INR 1.4 H (<1.2) Sodium 134 L (137-145) mmol/L Creatinine 0.64 L (0.66-1.25) mg/dL Glucose 106 H (74-99) mg/dL C-Reactive Protein 2.2 H (<1.0) mg/dL Albumin 2.9 L (3.5-5.0) g/dL Assessment and Plan Assessment: Right lower extremity infection with multiple ulceration involving the foot and the distal leg Peripheral artery disease status post recent angiogram and amputation of the right great toe on 09/29 Diabetes mellitus Hypertension History of avascular necrosis of the right femoral head History of fall Plan: Continue with antibiotic per ID team consult Currently on Zosyn IV vancomycin Vascular surgery team consult Labs and medication were reviewed.. Continue same treatment. Continue with symptomatic treatment. Resume home medication. Monitor labs and vitals. DVT and GI prophylaxis. Further recommendations as per clinical course of the patient DVT prophylaxis: Subcutaneous heparin GI Prophylaxis: Pepcid PT/OT: Pending Prognosis is guarded
[2024-11-10] MEDS: VANCOMYCIN 1,500 MG in SODIUM CHLORIDE 0.9% 500 ML 500 ML IVPB ONE (13:34)
--- NOTE | 2024-11-10 15:27 | P.GSCN ---
History of Present Illness Consult date: 11/10/24 Reason for Consult: Infected recent amputation Requesting physician: Kalpesh Guardado History of present illness: This is a pleasant 74-year-old male with severe peripheral vascular disease who has undergone revascularization of his right lower extremity of his tibial vessels he continued to have worsening discoloration and infection to his toe. He had gangrene of the right great toe with infection and purulence into the midfoot status post right great toe amputation on 09/29/2024. He has been following with Dr. June and discussion has been had to schedule patient for right [id number] amputation pending medical clearance. Patient was sent in for concern worsening infection. Past medical history includes diabetes mellitus and smoker. Patient is afebrile, no leukocytosis. He currently denies any shortness of breath, chest pain, abdominal pain nausea or vomiting. He does have lower extremity pain. Redness right lower extremity. Review of Systems A 14 point review systems was completed all pertinent positives and negatives as stated in the HPI. Past Medical History Past Medical History: Diabetes Mellitus, GI Bleed, Hearing Disorder / Deafness Additional Past Medical History / Comment(s): unhealing 2 wounds left foot -from rubbing on medical boot, HX of Diverticultis. Type IIDiabetic. [place]. Perforated ulcer. History of Any Multi-Drug Resistant Organisms: None Reported Past Surgical History: Hernia Repair Additional Past Surgical History / Comment(s): Hernia at age 3. Stomach surgery. Colonoscopy,amputation 2nd digit left foot. Recent amputation of the 5th digit foot -May 2024. Past Anesthesia/Blood Transfusion Reactions: No Reported Reaction Additional Past Anesthesia/Blood Transfusion Reaction / Comm: no hx blood transfusion Past Psychological History: No Psychological Hx Reported Smoking Status: Current every day smoker Past Alcohol Use History: Occasional Past Drug Use History: None Reported - Past Family History Sister(s) Family Medical History: Cancer Additional Family Medical History / Comment(s): Breast cancer Medications and Allergies Home Medications Medication Instructions Recorded Confirmed Type Acetaminophen [Tylenol Arthritis] 650 mg PO Q6H PRN 11/10/24 11/10/24 History Aspirin 81 mg PO DAILY@0800 11/10/24 11/10/24 History Atorvastatin [Lipitor] 40 mg PO DAILY@79911/10/24 11/10/24 History Dapagliflozin Propanediol [Farxiga] 10 mg PO DAILY@0800 11/10/24 11/10/24 History INSULIN LISPRO (humaLOG) [humaLOG] See Protocol SQ AC-TID@07,11,1630 11/10/24 11/10/24 History Insulin Glargine,Hum.rec.anlog 24 units SQ HS@2130 11/10/24 11/10/24 History [Lantus Solostar Pen] Josafat Packet 1 packet PO BID@0800,1700 11/10/24 11/10/24 History Lidocaine 5% Cream 1 applic TOPICAL WE@0800 11/10/24 11/10/24 History Losartan [Cozaar] 12.5 mg PO DAILY@0800 11/10/24 11/10/24 History Magic Butt Paste 1 applic TOPICAL TID 11/10/24 11/10/24 History Magic Cup 1 box PO BID@1200,1700 11/10/24 11/10/24 History Magnesium Hydroxide [Milk of 7,200 mg PO DAILY PRN 11/10/24 11/10/24 History Magnesia Concentrate] Na Phos,M-B/Na Phos,Di-Ba [Fleet 133 ml RECTAL DAILY PRN 11/10/24 11/10/24 History Adult] Nicotine 14Mg/24Hr Patch [Habitrol 1 patch TRANSDERM DAILY@0800 11/10/24 11/10/24 History 14Mg/24Hr Patch] Pantoprazole [Protonix] 40 mg PO DAILY@0800 11/10/24 11/10/24 History Piperacillin-Tazobactam [Zosyn] 3.375 gm IVPB TID@06,,11/10/24 11/10/24 History Rivaroxaban [Xarelto] 2.5 mg PO BID@0800,1700 11/10/24 11/10/24 History bisacodyL [Dulcolax] 10 mg RECTAL DAILY PRN 11/10/24 11/10/24 History Allergies Allergy/AdvReac Type Severity Reaction Status Date / Time No Known Allergies Allergy Verified 11/10/24 13:57 Surgical - Exam Vital Signs Temp Pulse Resp BP Pulse Ox 98 F 95 20 109/71 99 11/10/24 11:10 11/10/24 11:10 11/10/24 11:10 11/10/24 11:10 11/10/24 11:10 General appearance: The patient is alert, oriented, appears in no acute distress. HET: Head is normocephalic and atraumatic. Pupils are equal and reactive. Neck: Supple. Heart: Regular. Lungs: Equal expansion, normal respiratory effort. Abdomen: Soft, nontender, nondistended. Extremities: Second toe gangrene great toe amputation site with purulent drainage, foot with surrounding erythema, dorsal aspect of distal right leg with open wound with tendon exposure. Left leg with lateral wound. Neurological: Alert and oriented. Results - Labs 11/10/24 11:44 11/10/24 11:44 Abnormal Lab Results - Last 24 Hours (Table) 11/10/24 11/10/24 11/10/24 Range/Units 11:44 11:44 11:44 RBC 4.07 L (4.30-5.90) m/uL Hgb 12.1 L (13.0-17.5) gm/dL MCHC 30.7 L (31.0-37.0) g/dL PT 14.3 H (10.0-12.5) sec INR 1.4 H (<1.2) Sodium 134 L (137-145) mmol/L Creatinine 0.64 L (0.66-1.25) mg/dL Glucose 106 H (74-99) mg/dL C-Reactive Protein 2.2 H (<1.0) mg/dL Albumin 2.9 L (3.5-5.0) g/dL Diabetes panel 11/10/24 Range/Units 11:44 Sodium 134 L (137-145) mmol/L Potassium 4.7 (3.5-5.1) mmol/L Chloride 102 (98-107) mmol/L Carbon Dioxide 25 (22-30) mmol/L BUN 17 (9-20) mg/dL Creatinine 0.64 L (0.66-1.25) mg/dL Glucose 106 H (74-99) mg/dL Calcium 8.7 (8.4-10.2) mg/dL AST 29 (17-59) U/L ALT 11 (4-49) U/L Alkaline Phosphatase 82 (38-126) U/L Total Protein 6.7 (6.3-8.2) g/dL Albumin 2.9 L (3.5-5.0) g/dL Calcium panel 11/10/24 Range/Units 11:44 Calcium 8.7 (8.4-10.2) mg/dL Albumin 2.9 L (3.5-5.0) g/dL Pituitary panel 11/10/24 Range/Units 11:44 Sodium 134 L (137-145) mmol/L Potassium 4.7 (3.5-5.1) mmol/L Chloride 102 (98-107) mmol/L Carbon Dioxide 25 (22-30) mmol/L BUN 17 (9-20) mg/dL Creatinine 0.64 L (0.66-1.25) mg/dL Glucose 106 H (74-99) mg/dL Calcium 8.7 (8.4-10.2) mg/dL Adrenal panel 11/10/24 Range/Units 11:44 Sodium 134 L (137-145) mmol/L Potassium 4.7 (3.5-5.1) mmol/L Chloride 102 (98-107) mmol/L Carbon Dioxide 25 (22-30) mmol/L BUN 17 (9-20) mg/dL Creatinine 0.64 L (0.66-1.25) mg/dL Glucose 106 H (74-99) mg/dL Calcium 8.7 (8.4-10.2) mg/dL Total Bilirubin 0.6 (0.2-1.3) mg/dL AST 29 (17-59) U/L ALT 11 (4-49) U/L Alkaline Phosphatase 82 (38-126) U/L Total Protein 6.7 (6.3-8.2) g/dL Albumin 2.9 L (3.5-5.0) g/dL Assessment and Plan Assessment: 1. Infected nonhealing wounds to right foot 2. Recent great toe amputation secondary infected toe with gangrene 3. Severe peripheral arterial disease with previous revascularization 4. Diabetes mellitus 5. Smoker 6. History of coronary artery disease Plan: 1. Hold anticoagulation 2. Get current type and screen 3. Continue antibiotics per recommendations from infectious disease 4. Wound cultures collected and sent 5. Consult to cardiology for cardiac clearance for right [id number] amputation 6. Patient may have consistent carbohydrate diet 7. Patient is scheduled for right [id number] amputation this 11/12/2024 8. Can apply wet to dry dressings daily to right lower extremity wounds Thank you for this consultation, we will continue to follow. The impression and plan of care has been dictated as directed. Dr. Walter Chery performed a history and examination of this patient, discussed the same with the dictator. I agree with the dictator's note ,documented as a scribe. Any additional findings or plans will be noted.
[2024-11-10] MEDS: PIPERACILLIN-TAZOBACTAM 3.375 GM in SODIUM CHLORIDE 0.9% 100 ML IVPB SCH (15:49)
[2024-11-10 18:21] LABS: Glucose,Whole Blood 94 mg/dL (70-110)
[2024-11-10] MEDS: INSULIN LISPRO (HumaLOG) 100 UNIT/ML 10 mL VL SQ SCH (18:26)
[2024-11-10 20:51] LABS: Glucose,Whole Blood 101 mg/dL (70-110)
[2024-11-10] MEDS ORDERED: bisacodyL 10 MG SUPP RECTAL PRN (21:05)
[2024-11-10] MEDS: SODIUM CHLORIDE 0.9% 1,000 ML IV SCH (21:41)
[2024-11-10] MEDS: metroNIDAZOLE 500 MG TAB PO SCH (21:41)
--- NOTE | 2024-11-10 21:48 | P.CONS ---
History of Present Illness - Reason for Consult Consult date: 11/10/24 Right leg wound cellulitis Requesting physician: Darinel E Sheet - Chief Complaint Worsening discoloration of the right foot wound x days - History of Present Illness Patient is a 74-year-old male with a past medical history significant for diabetes mellitus GI bleed and did have severe peripheral vascular disease in this patient who did have right big toe gangrene status post amputation and also revascularization of the right lower extremity culture at that time were positive for Enterobacter patient did get a PICC line and was advised a 6-week course of IV cefepime and oral Flagyl with the patient was currently seen at the [facility] living patient noticed to have worsening discoloration of his right foot and some drainage for the patient has been brought into the hospital apparently the patient has already been evaluated outpatient setting by the vascular surgery and they are planning for right [id number] amputation pending cardiac clearance patient denies having any fever or any chills has been breathing comfortably no chest pain shortness of breath or cough no nausea no vomiting no abdominal pain did have pain to the right lower extremity mostly dull aching moderate intensity without radiation and some drainage from the wound patient on presentation to hospital have white count of 8.2, creatinine 0.64 electrolytes and liver isms are normal CRP is 2.2 patient was started on vancomycin and Zosyn infectious disease was consulted for further management of antibiotic therapy Review of Systems Positive point and negatives has been mentioned in the HPI, complete review of systems was performed and all other systems are negative Past Medical History Past Medical History: Diabetes Mellitus, GI Bleed, Hearing Disorder / Deafness Additional Past Medical History / Comment(s): unhealing 2 wounds left foot -from rubbing on medical boot, HX of Diverticultis. Type IIDiabetic. [place]. Perforated ulcer. History of Any Multi-Drug Resistant Organisms: None Reported Past Surgical History: Hernia Repair Additional Past Surgical History / Comment(s): Hernia at age 3. Stomach surgery. Colonoscopy,amputation 2nd digit left foot. Recent amputation of the 5th digit foot -May 2024. Past Anesthesia/Blood Transfusion Reactions: No Reported Reaction Additional Past Anesthesia/Blood Transfusion Reaction / Comm: no hx blood transfusion Past Psychological History: No Psychological Hx Reported Smoking Status: Current every day smoker Past Alcohol Use History: Occasional Past Drug Use History: None Reported - Past Family History Sister(s) Family Medical History: Cancer Additional Family Medical History / Comment(s): Breast cancer Medications and Allergies Home Medications Medication Instructions Recorded Confirmed Type Acetaminophen [Tylenol Arthritis] 650 mg PO Q6H PRN 11/10/24 11/10/24 History Aspirin 81 mg PO DAILY@0800 11/10/24 11/10/24 History Atorvastatin [Lipitor] 40 mg PO DAILY@0800 11/10/24 11/10/24 History Dapagliflozin Propanediol [Farxiga] 10 mg PO DAILY@0800 11/10/24 11/10/24 History INSULIN LISPRO (humaLOG) [humaLOG] See Protocol SQ AC-TID@07,11,1630 11/10/24 11/10/24 History Insulin Glargine,Hum.rec.anlog 24 units SQ HS@2130 11/10/24 11/10/24 History [Lantus Solostar Pen] Josafat Packet 1 packet PO BID@0800,1700 11/10/24 11/10/24 History Lidocaine 5% Cream 1 applic TOPICAL WE@0800 11/10/24 11/10/24 History Losartan [Cozaar] 12.5 mg PO DAILY@0800 11/10/24 11/10/24 History Magic Butt Paste 1 applic TOPICAL TID 11/10/24 11/10/24 History Magic Cup 1 box PO BID@1200,1700 11/10/24 11/10/24 History Magnesium Hydroxide [Milk of 7,200 mg PO DAILY PRN 11/10/24 11/10/24 History Magnesia Concentrate] Na Phos,M-B/Na Phos,Di-Ba [Fleet 133 ml RECTAL DAILY PRN 11/10/24 11/10/24 History Adult] Nicotine 14Mg/24Hr Patch [Habitrol 1 patch TRANSDERM DAILY@0800 11/10/24 11/10/24 History 14Mg/24Hr Patch] Pantoprazole [Protonix] 40 mg PO DAILY@0800 11/10/24 11/10/24 History Piperacillin-Tazobactam [Zosyn] 3.375 gm IVPB TID@06,14,22 11/10/24 11/10/24 History Rivaroxaban [Xarelto] 2.5 mg PO BID@0800,1700 11/10/24 11/10/24 History bisacodyL [Dulcolax] 10 mg RECTAL DAILY PRN 11/10/24 11/10/24 History Allergies Allergy/AdvReac Type Severity Reaction Status Date / Time No Known Allergies Allergy Verified 11/10/24 13:57 Physical Exam Vitals: Vital Signs Temp Pulse Resp BP Pulse Ox 11/10/24 13:45 98.1 F 80 16 111/73 98 11/10/24 11:10 98 F 95 20 109/71 99 Intake and Output 11/10/24 11/10/24 11/10/24 06:59 14:59 22:59 Other: Weight 79.379 kg GENERAL DESCRIPTION: Elderly male lying in bed, no distress. No tachypnea or accessory muscle of respiration use. HEENT: Shows Pallor , no scleral icterus. Oral mucous membrane is dry. NECK: Trachea central, no thyromegaly. LUNGS: Unlabored breathing. Clear to auscultation anteriorly. No wheeze or crackle. HEART: S1, S2, regular rate and rhythm. No loud murmur ABDOMEN: Soft, no tenderness , guarding or rigidity, no organomegaly EXTREMITIES: Right lower extremity wound with a tendon exposed he did have a necrotic wound to the right foot at the site of the right big toe amputation with some drainage SKIN: No rash, no masses palpable. NEUROLOGICAL: The patient is awake, alert, oriented x3, mood and affect normal. Results CBC & Chem 7: 11/12/24 08:23 11/12/24 08:23 Labs: Abnormal Lab Results - Last 24 Hours (Table) 11/10/24 11/10/24 11/10/24 Range/Units 11:44 11:44 11:44 RBC 4.07 L (4.30-5.90) m/uL Hgb 12.1 L (13.0-17.5) gm/dL MCHC 30.7 L (31.0-37.0) g/dL PT 14.3 H (10.0-12.5) sec INR 1.4 H (<1.2) Sodium 134 L (137-145) mmol/L Creatinine 0.64 L (0.66-1.25) mg/dL Glucose 106 H (74-99) mg/dL C-Reactive Protein 2.2 H (<1.0) mg/dL Albumin 2.9 L (3.5-5.0) g/dL Assessment and Plan (1) Diabetic infection of right foot Current Visit: Yes Status: Acute Code(s): E11.628 - TYPE 2 DIABETES MELLITUS WITH OTHER SKIN COMPLICATIONS; L08.9 - LOCAL INFECTION OF THE SKIN AND SUBCUTANEOUS TISSUE, UNSP SNOMED Code(s): 652752226 (2) Foot osteomyelitis, right Current Visit: Yes Status: Acute Code(s): M86.9 - OSTEOMYELITIS, UNSPECIFIED SNOMED Code(s): 0474398241893946 (3) Right foot infection Current Visit: Yes Status: Acute Code(s): L08.9 - LOCAL INFECTION OF THE SKIN AND SUBCUTANEOUS TISSUE, UNSP SNOMED Code(s): 115438619 (4) Diabetic gangrene Current Visit: No Status: Acute Code(s): E11.52 - TYPE 2 DIABETES W DIABETIC PERIPHERAL ANGIOPATHY W GANGRENE SNOMED Code(s): 035914310 Plan: 1patient was in the hospital with worsening wound to the right foot area in this patient who did have a history of PAD and right big toe gangrene status post right big toe potation on his last admission and also revascularization now with evidence of worsening wound to the right foot with some necrotic changes as well as wound to the right lower extremity concerning for failure of the medical treatment and vascular surgical surgery for right [id number] potation with the patient and the family is seem to be agreeable 2-for now patient will be covered with vancomycin however switch Zosyn to cefepime and Flagyl to decrease risk of nephrotoxicity 3local wound care per Vascular team and care was discussed with Dr. June at the bedside We will follow on clinical condition and cultures to further adjust medication if needed Thank you for this consultation we will follow the patient along with you Dictation was produced using [employer] dictation software. please excuse any grammatical, word or spelling errors. Time with Patient: Greater than 30
[2024-11-10] MEDS: CEFEPIME 2 GM in SODIUM CHLORIDE 0.9% 100 ML IVPB SCH (23:23)
[2024-11-10] MEDS: HEPARIN SODIUM,PORCINE 5,000 UNIT/ML 1 ML VIAL SQ SCH (23:23)
[2024-11-11] MEDS: VANCOMYCIN 1,500 MG in SODIUM CHLORIDE 0.9% 500 ML 500 ML IVPB SCH (01:51)
[2024-11-11 03:53] LABS: HCT 43.3 % (39.0-53.0); HGB 12.7 gm/dL (13.0-17.5); Hypochromasia Marked; MCH 29.7 pg (25.0-35.0); MCHC 29.4 g/dL (31.0-37.0); MCV 101.3 fL (80.0-100.0); Macrocytosis Slight; Mean Platelet Volume 8.5; Platelet Count 284 k/uL (150-450); RBC 4.27 m/uL (4.30-5.90); RDW 13.8 % (11.5-15.5); WBC 7.9 k/uL (3.8-10.6)
[2024-11-11 04:13] LABS: Glucose 85 mg/dL (74-99)
[2024-11-11 04:30] LABS: Band Neutrophils % 4 %; Eosinophils # (M) 0.24 k/uL (0-0.7); Lymphocytes # (M) 1.42 k/uL (1.0-4.8); Monocytes # (M) 0.63 k/uL (0-1.0); Neutrophils % (M) 67 %; Nucleated Red Blood Cells 0 /100 WBC (0-0); Total Cells Counted 100
[2024-11-11 04:33] LABS: African American GFR (CKD) >90 (>60 ml/min/1.73 sqM); Blood Urea Nitrogen 12 mg/dL (9-20); Calcium 8.4 mg/dL (8.4-10.2); Carbon Dioxide 23 mmol/L (22-30); Non-African American GFR(CKD) >90 (>60 ml/min/1.73 sqM); Sodium 134 mmol/L (137-145)
[2024-11-11 06:02] LABS: Anion Gap 7 mmol/L; Chloride 104 mmol/L (98-107)
[2024-11-11 06:36] LABS: Glucose,Whole Blood 82 mg/dL (70-110)
[2024-11-11] MEDS: PANTOPRAZOLE 40 MG TABLET PO SCH (08:08)
[2024-11-11] MEDS: DAPAGLIFLOZIN PROPANEDIOL 10 MG TABLET PO SCH (08:08)
[2024-11-11] MEDS: ATORVASTATIN 40 MG TAB PO SCH (08:08)
[2024-11-11] MEDS: LOSARTAN 25 MG TAB PO SCH (09:19)
[2024-11-11] MEDS: ASPIRIN 81 MG PO SCH (09:29)
--- NOTE | 2024-11-11 09:48 | P.CRDCN ---
History of Present Illness History of present illness: HISTORY OF PRESENT ILLNESS: This is a 74-year-old male with a past medical history significant for diabetes and peripheral arterial disease. Patient follows in the office with Dr. Munroe. We have been asked to see the patient in consultation for cardiac clearance for right AKA. Patient examined at the bedside. Patient is admitted to the hospital for worsening infection of right lower extremity. Patient is scheduled to undergo right [id number] amputation tomorrow 11/12/2024. Patient currently denies any chest pain or pressure. He denies any shortness of breath. Vital signs are stable. Patient denies any known history of coronary artery disease. He denies undergoing any previous cardiac catheterization or stenting. DIAGNOSTICS: - EKG reveals sinus mechanism with no signs of acute ischemia. - Laboratory data: WBC 7.9. Hemoglobin 12.7. Platelet count 284. Sodium 134. Potassium 4.0. BUN 12. Creatinine 0.58. Recent lipid panel reveals cholesterol 128. LDL 83. HDL 26. Hemoglobin A1c 8.9. - Current home cardiac medications include aspirin 81 mg daily, atorvastatin 40 mg daily, Farxiga 10 mg daily, losartan 12.5 mg daily, Xarelto 2.5 mg twice a day - Most recent echocardiogram obtained in September 2024 revealed ejection fraction 55 to 60%, mild tricuspid regurgitation, moderate septal hypertrophy with no LVOT gradient, no obvious regional wall motion abnormalities - Cardiac catheterization history: Patient denies REVIEW OF SYSTEMS: At the time of my exam: CONSTITUTIONAL: Denies fever or chills. HEENT: Denies blurred vision, vision changes, or eye pain. Denies hemoptysis CARDIOVASCULAR: Denies chest pain. Denies orthopnea. Denies PND. Denies palpi tations RESPIRATORY: Denies shortness of breath. GASTROINTESTINAL: Denies abdominal pain. Denies nausea or vomiting. HEMATOLOGIC: Denies bleeding disorders. GENITOURINARY: Denies any blood in urine. SKIN: Denies pruitis. Denies rash. PHYSICAL EXAM: VITAL SIGNS: Reviewed. GENERAL: Well-developed in no acute distress. HEENT: Head is normocephalic. Pupils are equal, round. Sclerae anicteric. Mucous membranes of the mouth are moist. Neck supple. No JVD or thyromegaly LUNGS: Respirations even and unlabored. Lungs essentially clear to auscultation bilaterally. HEART: Regular rate and rhythm. S1 and S2 heard. ABDOMEN: Soft. Nondistended. Nontender. EXTREMITIES: Normal range of motion. No clubbing or cyanosis. Dressings noted to right lower extremity NEUROLOGIC: Awake and alert. Oriented x 3. ASSESSMENT: Infected nonhealing wound of right foot Recent great toe amputation secondary to gangrenous infection Peripheral arterial disease with previous revascularization Diabetes, uncontrolled, recent hemoglobin A1c 8.9 Nicotine dependence Frequent alcohol use, patient reports drinking alcohol 3 times a week PLAN: Check TSH Recommend tight glucose control as recent hemoglobin A1c is uncontrolled at 8.9 No need to repeat echocardiogram as this was performed in September 2024 Continue current cardiac medications including aspirin, Lipitor, Farxiga, and losartan Peripheral dose of Xarelto remains on hold for upcoming surgery Patient is at intermediate to high risk to undergo surgery from a cardiac standpoint. However there are no absolute contraindications. Further recommendations pending patient course Nurse practitioner note has been reviewed by physician. Signing provider agrees with the documented findings, assessment, and plan of care documented by EMB[employer] SOFTWARE ENGINEER as a scribe. Past Medical History Past Medical History: Diabetes Mellitus, GI Bleed, Hearing Disorder / Deafness Additional Past Medical History / Comment(s): unhealing 2 wounds left foot -from rubbing on medical boot, HX of Diverticultis. Type IIDiabetic. [place]. Perforated ulcer. History of Any Multi-Drug Resistant Organisms: None Reported Past Surgical History: Hernia Repair Additional Past Surgical History / Comment(s): Hernia at age 3. Stomach surgery. Colonoscopy,amputation 2nd digit left foot. Recent amputation of the 5th digit foot -May 2024. Past Anesthesia/Blood Transfusion Reactions: No Reported Reaction Additional Past Anesthesia/Blood Transfusion Reaction / Comment(s): no hx blood transfusion Past Psychological History: No Psychological Hx Reported Smoking Status: Current every day smoker Past Alcohol Use History: Occasional Past Drug Use History: None Reported - Past Family History Sister(s) Family Medical History: Cancer Additional Family Medical History / Comment(s): Breast cancer Medications and Allergies Home Medications Medication Instructions Recorded Confirmed Type Acetaminophen [Tylenol Arthritis] 650 mg PO Q6H PRN 11/10/24 11/10/24 History Aspirin 81 mg PO DAILY@0800 11/10/24 11/10/24 History Atorvastatin [Lipitor] 40 mg PO DAILY@79911/10/24 11/10/24 History Dapagliflozin Propanediol [Farxiga] 10 mg PO DAILY@0800 11/10/24 11/10/24 History INSULIN LISPRO (humaLOG) [humaLOG] See Protocol SQ AC-TID@07,,1630 11/10/24 11/10/24 History Insulin Glargine,Hum.rec.anlog 24 units SQ HS@2130 11/10/24 11/10/24 History [Lantus Solostar Pen] Josafat Packet 1 packet PO BID@0800,1700 11/10/24 11/10/24 History Lidocaine 5% Cream 1 applic TOPICAL WE@0800 11/10/24 11/10/24 History Losartan [Cozaar] 12.5 mg PO DAILY@0800 11/10/24 11/10/24 History Magic Butt Paste 1 applic TOPICAL TID 11/10/24 11/10/24 History Magic Cup 1 box PO BID@1200,1700 11/10/24 11/10/24 History Magnesium Hydroxide [Milk of 7,200 mg PO DAILY PRN 11/10/24 11/10/24 History Magnesia Concentrate] Na Phos,M-B/Na Phos,Di-Ba [Fleet 133 ml RECTAL DAILY PRN 11/10/24 11/10/24 History Adult] Nicotine 14Mg/24Hr Patch [Habitrol 1 patch TRANSDERM DAILY@0800 11/10/24 11/10/24 History 14Mg/24Hr Patch] Pantoprazole [Protonix] 40 mg PO DAILY@0800 11/10/24 11/10/24 History Piperacillin-Tazobactam [Zosyn] 3.375 gm IVPB TID@06,14,22 11/10/24 11/10/24 History Rivaroxaban [Xarelto] 2.5 mg PO BID@0800,1700 11/10/24 11/10/24 History bisacodyL [Dulcolax] 10 mg RECTAL DAILY PRN 11/10/24 11/10/24 History Allergies Allergy/AdvReac Type Severity Reaction Status Date / Time No Known Allergies Allergy Verified 11/10/24 13:57 Physical Exam Vitals: Vital Signs Temp Pulse Pulse Resp BP BP Pulse Ox 11/11/24 07:15 98.1 F 86 17 149/87 100 11/11/24 02:01 98.3 F 65 15 116/68 97 11/10/24 20:07 98.0 F 96 16 126/77 98 11/10/24 20:00 96 16 11/10/24 18:14 97.5 F L 59 L 17 108/72 98 11/10/24 13:45 98.1 F 80 16 111/73 98 11/10/24 11:10 98 F 95 20 109/71 99 Intake and Output 11/10/24 11/11/24 11/11/24 22:59 06:59 14:59 Other: # Voids 1 # Bowel Movements 1 Weight 79.379 kg Results 11/11/24 03:37 11/11/24 03:37 Cardiac Enzymes 11/10/24 Range/Units 11:44 AST 29 (17-59) U/L Coagulation 11/10/24 Range/Units 11:44 PT 14.3 H (10.0-12.5) sec APTT 25.0 (22.0-30.0) sec CBC 11/10/24 11/11/24 Range/Units 11:44 03:37 WBC 8.2 7.9 (3.8-10.6) k/uL RBC 4.07 L 4.27 L (4.30-5.90) m/uL Hgb 12.1 L 12.7 L (13.0-17.5) gm/dL Hct 39.4 43.3 (39.0-53.0) % Plt Count 286 284 (150-450) k/uL Comprehensive Metabolic Panel 11/10/24 11/11/24 Range/Units 11:44 03:37 Sodium 134 L 134 L (137-145) mmol/L Potassium 4.7 4.0 (3.5-5.1) mmol/L Chloride 102 104 (98-107) mmol/L Carbon Dioxide 25 23 (22-30) mmol/L BUN 17 12 (9-20) mg/dL Creatinine 0.64 L 0.58 L (0.66-1.25) mg/dL Glucose 106 H 85 (74-99) mg/dL Calcium 8.7 8.4 (8.4-10.2) mg/dL AST 29 (17-59) U/L ALT 11 (4-49) U/L Alkaline Phosphatase 82 (38-126) U/L Total Protein 6.7 (6.3-8.2) g/dL Albumin 2.9 L (3.5-5.0) g/dL Current Medications Generic Name Dose Route Start Last Admin Trade Name Freq PRN Reason Stop Dose Admin Hydrocodone Bitart/Acetaminophen 1 each 11/10/24 13:10 Hydrocodone/Apap 5-325mg 1 Each Tab PO Q4HR PRN Moderate Pain (Scale 4 to 6) Aspirin 81 mg 11/11/24 10:00 11/11/24 09:29 Aspirin 81 Mg PO 81 mg DAILY@0800 [facility] Administration Atorvastatin Calcium 40 mg 11/11/24 08:00 11/11/24 09:18 Atorvastatin 40 Mg Tab PO 40 mg DAILY@0800 [facility] Administration Bisacodyl 10 mg 11/10/24 21:05 Bisacodyl 10 Mg Supp RECTAL DAILY PRN Constipation Dapagliflozin 10 mg 11/11/24 08:00 11/11/24 09:19 Dapagliflozin Propanediol 10 Mg Tablet PO 10 mg DAILY@0800 [facility] Administration Dextrose/Water 25 ml 11/10/24 13:33 Dextrose 50% Syringe 50 Ml IVP PER PROTOCOL PRN Hypoglycemia Protocol Dextrose/Water 50 ml 11/10/24 13:33 Dextrose 50% Syringe 50 Ml IVP PER PROTOCOL PRN Hypoglycemia Protocol Heparin Sodium (Porcine) 5,000 unit 11/11/24 00:00 11/11/24 09:19 Heparin Sodium,Porcine 5,000 Unit/Ml 1 Ml Vial SQ 5,000 unit Q8HR [facility] Administration Vancomycin HCl 1,500 mg/ 500 mls @ 167 mls/hr 11/11/24 02:00 11/11/24 01:51 Sodium Chloride IVPB 167 mls/hr Q12H [facility] Administration Sodium Chloride 1,000 mls @ 75 mls/hr 11/10/24 21:15 11/10/24 21:41 Saline 0.9% IV 75 mls/hr .[id number] [facility] Administration Cefepime HCl 2 gm/ Sodium 100 mls @ 25 mls/hr 11/11/24 00:00 11/11/24 09:19 Chloride IVPB 25 mls/hr Q8HR [facility] Administration Protocol Insulin Human Lispro 0 unit 11/10/24 17:30 11/11/24 06:43 Insulin Lispro (Humalog) 100 Unit/Ml 10 Ml Vl SQ Not Given AC-TID [facility] Protocol Losartan Potassium 12.5 mg 11/11/24 08:00 11/11/24 09:19 Losartan 25 Mg Tab PO 12.5 mg DAILY@0800 [facility] Administration Metronidazole 500 mg 11/10/24 22:00 11/11/24 09:18 Metronidazole 500 Mg Tab PO 500 mg TID [facility] Administration Protocol Miscellaneous Information 0 each 11/12/24 13:00 Vancomycin Trough Due 1 Each Misc MISCELLANE 11/12/24 13:01 DIRECTED ONE Naloxone HCl 0.2 mg 11/10/24 13:10 Naloxone 0.4 Mg/Ml 1 Ml Vial IV Q2M PRN Opioid Reversal Ondansetron HCl 4 mg 11/10/24 13:10 Ondansetron 4 Mg/2 Ml Vial IVP Q8HR PRN Nausea And Vomiting Pantoprazole Sodium 40 mg 11/11/24 08:00 11/11/24 09:18 Pantoprazole 40 Mg Tablet PO 40 mg DAILY@0800 [facility] Administration Intake and Output 11/10/24 11/11/24 11/11/24 22:59 06:59 14:59 Other: # Voids 1 # Bowel Movements 1 Weight 79.379 kg 11/11/24 03:37 11/11/24 03:37
[2024-11-11 11:12] LABS: Glucose,Whole Blood 102 mg/dL (70-110)
--- NOTE | 2024-11-11 12:07 | P.PN ---
Subjective This is a pleasant 74 years old male with past medical history of multiple medical problems including diabetes mellitus. He was recently in this hospital about 1 month ago and where he was treated for infected diabetic right foot ulcer. He was evaluated by vascular surgery team and he underwent right lower extremity angiogram and on 09/24 followed by right great toe ray amputation.Patient was discharged on Zosyn for 35 days as well as his home medication including Xarelto, diabetic and heart medication. He presents this time with worsening infection and swelling and redness of the whole right foot extending into the distal leg with multiple purulent discharge and ulceration especially on the medial aspect of the right big toe base and on the front of the ankle as well as gangrenous second toe. Patient states this has been going on for the last 2 to 3 weeks. He denies any other complaint like chest pain dyspnea or GI/ symptoms or neurological symptoms He smokes about half pack to 1 pack/day and he was counseled to quit but he de clines. He drinks alcohol 3 times a week mainly to be cans of beer. He denies illicit drugs He is hemodynamically stable Labs basically unremarkable of the CBC, BMP, LFT and INR X-ray of the right tibia and fibula showing no osteomyelitis changes. Patient started on Zosyn and IV vancomycin emergency room admitted with ID team, consult and vascular surgery team consult 11/11 Pain controlled Patient has extensive infection of the right lower extremity and foot Patient require AKA Vascular surgery team recommended cardiac preop evaluation and found moderate to high risk for procedure but there is no contraindication Glucose currently controlled 80-100 Continue with IV antibiotics as per ID team Xarelto on hold which he takes for his peripheral artery disease Review of systems CONSTITUTIONAL: No fever, no malaise, no fatigue. HEENT: No recent visual problems or hearing problems. Denied any sore throat. CARDIOVASCULAR: No orthopnea, PND, no palpitations, no syncope. PULMONARY: No shortness of breath, no cough, no hemoptysis. GASTROINTESTINAL: No diarrhea, no nausea, no vomiting, no abdominal pain. Normoactive bowel sounds. Active Medications Hydrocodone Bitart/Acetaminophen (Hydrocodone/Apap 5-325mg 1 Each Tab) 1 each PO Q4HR PRN PRN Reason: Moderate Pain (Scale 4 to 6) Aspirin (Aspirin 81 Mg) 81 mg PO DAILY@0800 [facility] Last Admin: 11/11/24 09:29 Dose: 81 mg Atorvastatin Calcium (Atorvastatin 40 Mg Tab) 40 mg PO DAILY@0800 [facility] Last Admin: 11/11/24 09:18 Dose: 40 mg Bisacodyl (Bisacodyl 10 Mg Supp) 10 mg RECTAL DAILY PRN PRN Reason: Constipation Dapagliflozin (Dapagliflozin Propanediol 10 Mg Tablet) 10 mg PO DAILY@0800 [facility] Last Admin: 11/11/24 09:19 Dose: 10 mg Dextrose/Water (Dextrose 50% Syringe 50 Ml) 25 ml IVP PER PROTOCOL PRN; Protocol PRN Reason: Hypoglycemia Dextrose/Water (Dextrose 50% Syringe 50 Ml) 50 ml IVP PER PROTOCOL PRN; Protocol PRN Reason: Hypoglycemia Heparin Sodium (Porcine) (Heparin Sodium,Porcine 5,000 Unit/Ml 1 Ml Vial) 5,000 unit SQ Q8HR [facility] Last Admin: 11/11/24 09:19 Dose: 5,000 unit Vancomycin HCl 1,500 mg/ (Sodium Chloride) 500 mls @ 167 mls/hr IVPB Q12H [facility] Last Admin: 11/11/24 01:51 Dose: 167 mls/hr Sodium Chloride (Saline 0.9%) 1,000 mls @ 75 mls/hr IV .[id number] [facility] Last Admin: 11/11/24 11:18 Dose: Not Given Cefepime HCl 2 gm/ Sodium (Chloride) 100 mls @ 25 mls/hr IVPB Q8HR [facility]; Protocol Last Admin: 11/11/24 09:19 Dose: 25 mls/hr Insulin Human Lispro (Insulin Lispro (Humalog) 100 Unit/Ml 10 Ml Vl) 0 unit SQ AC-TID [facility]; Protocol Last Admin: 11/11/24 11:19 Dose: Not Given Losartan Potassium (Losartan 25 Mg Tab) 12.5 mg PO DAILY@0800 [facility] Last Admin: 11/11/24 09:19 Dose: 12.5 mg Metronidazole (Metronidazole 500 Mg Tab) 500 mg PO TID [facility]; Protocol Last Admin: 11/11/24 09:18 Dose: 500 mg Miscellaneous Information (Vancomycin Trough Due 1 Each Misc) 0 each MISCELLANE DIRECTED ONE Stop: 11/12/24 13:01 Naloxone HCl (Naloxone 0.4 Mg/Ml 1 Ml Vial) 0.2 mg IV Q2M PRN PRN Reason: Opioid Reversal Ondansetron HCl (Ondansetron 4 Mg/2 Ml Vial) 4 mg IVP Q8HR PRN PRN Reason: Nausea And Vomiting Pantoprazole Sodium (Pantoprazole 40 Mg Tablet) 40 mg PO DAILY@0800 [facility] Last Admin: 11/11/24 09:18 Dose: 40 mg Objective - Vital Signs Vital signs: Vital Signs Temp 98.1 F 11/11/24 07:15 Pulse 86 11/11/24 11:37 Resp 18 11/11/24 11:37 BP 149/87 11/11/24 07:15 Pulse Ox 100 11/11/24 07:15 FiO2 Intake & Output 11/10/24 11/11/24 11/11/24 18:59 06:59 18:59 Weight 79.379 kg Other: Voiding Method Diaper # Voids 1 1 # Bowel Movements 1 1 - Exam GENERAL: The patient is alert and oriented x3, not in any acute distress. Well developed, well nourished. HEENT: Pupils are round and equally reacting to light. EOMI. No scleral icterus. No conjunctival pallor. Normocephalic, atraumatic. No pharyngeal erythema. No thyromegaly. CARDIOVASCULAR: S1 and S2 present. No murmurs, rubs, or gallops. PULMONARY: Chest is clear to auscultation, no wheezing , no crackles. ABDOMEN: Soft, nontender, nondistended, normoactive bowel sounds. No palpable organomegaly. MUSCULOSKELETAL: No joint swelling or deformity. EXTREMITIES: No cyanosis, clubbing, or pedal edema. -He is status post amputated right first big toe. He has multiple ulceration, mild swelling and redness extending from the lower half of the leg through the whole foot with multiple ulceration, d the biggest ulcer is at the base of the first toe and there is another big vertical ulcer in the front of the ankle with purulent discharge. Also there is gangrenous changes of the second right toe NEUROLOGICAL: Gross neurological examination did not reveal any focal deficits. SKIN: No rashes. no petechiae. - Labs CBC & Chem 7: 11/11/24 03:37 11/11/24 03:37 Labs: Abnormal Lab Results - Last 24 Hours (Table) 11/10/24 11/10/24 11/11/24 Range/Units 11:44 11:44 03:37 RBC (4.30-5.90) m/uL Hgb (13.0-17.5) gm/dL MCV (80.0-100.0) fL MCHC (31.0-37.0) g/dL PT 14.3 H (10.0-12.5) sec INR 1.4 H (<1.2) Sodium 134 L (137-145) mmol/L Creatinine 0.64 L (0.66-1.25) mg/dL Glucose 106 H (74-99) mg/dL Hemoglobin A1c 6.5 H (<=6.0) % C-Reactive Protein 2.2 H (<1.0) mg/dL Albumin 2.9 L (3.5-5.0) g/dL 11/11/24 11/11/24 Range/Units 03:37 03:37 RBC 4.27 L (4.30-5.90) m/uL Hgb 12.7 L (13.0-17.5) gm/dL MCV 101.3 H (80.0-100.0) fL MCHC 29.4 L (31.0-37.0) g/dL PT (10.0-12.5) sec INR (<1.2) Sodium 134 L (137-145) mmol/L Creatinine 0.58 L (0.66-1.25) mg/dL Glucose (74-99) mg/dL Hemoglobin A1c (<=6.0) % C-Reactive Protein (<1.0) mg/dL Albumin (3.5-5.0) g/dL Assessment and Plan Assessment: Right lower extremity infection with multiple ulceration involving the foot and the distal leg Peripheral artery disease status post recent angiogram and amputation of the right great toe on 09/29 Preop evaluation for planned right above-knee amputation Diabetes mellitus Hypertension History of avascular necrosis of the right femoral head History of fall Plan: Continue with antibiotic per ID team consult Preop cardiac evaluation found patient as intermediate to high risk for the surgery as patient may require AKA for his right lower extremity severe infection Currently on Zosyn IV vancomycin Vascular surgery team consult Labs and medication were reviewed.. Continue same treatment. Continue with symptomatic treatment. Resume home medication. Monitor labs and vitals. DVT and GI prophylaxis. Further recommendations as per clinical course of the patient DVT prophylaxis: Subcutaneous heparin GI Prophylaxis: Pepcid PT/OT: Pending Prognosis is guarded
--- NOTE | 2024-11-11 13:05 | P.PN ---
Subjective Progress Note Date: 11/11/24 Principal diagnosis: Infected right foot wound Patient is seen and examined today as a follow-up. Patient was resting comfortably. Denies any acute changes through the night. Cardiology on consultation for cardiac evaluation for right [id number] amputation. Patient remains afebrile. On IV antibiotics. He denies any shortness of breath, chest pain, abdominal pain, nausea or vomiting. No fevers or chills. Objective - Vital Signs Vital signs: Vital Signs Temp 98.1 F 11/11/24 07:15 Pulse 86 11/11/24 07:15 Resp 17 11/11/24 07:15 BP 149/87 11/11/24 07:15 Pulse Ox 100 11/11/24 07:15 FiO2 Intake & Output 11/10/24 11/11/24 11/11/24 18:59 06:59 18:59 Weight 79.379 kg Other: # Voids 1 # Bowel Movements 1 - Exam General appearance: The patient is alert, oriented, appears in no acute distress. HET: Head is normocephalic and atraumatic. Neck: Supple. Heart: Regular. Lungs: Equal expansion, normal respiratory effort. Abdomen: Soft, nontender, nondistended. Extremities: Right foot with dressing clean dry and intact. Nonpalpable PT and DP pulse. Neurological: No focal deficits. Alert and oriented.. - Labs CBC & Chem 7: 11/11/24 03:37 11/11/24 03:37 Labs: Abnormal Lab Results - Last 24 Hours (Table) 11/10/24 11/10/24 11/10/24 Range/Units 11:44 11:44 11:44 RBC 4.07 L (4.30-5.90) m/uL Hgb 12.1 L (13.0-17.5) gm/dL MCV (80.0-100.0) fL MCHC 30.7 L (31.0-37.0) g/dL PT 14.3 H (10.0-12.5) sec INR 1.4 H (<1.2) Sodium 134 L (137-145) mmol/L Creatinine 0.64 L (0.66-1.25) mg/dL Glucose 106 H (74-99) mg/dL C-Reactive Protein 2.2 H (<1.0) mg/dL Albumin 2.9 L (3.5-5.0) g/dL 11/11/24 11/11/24 Range/Units 03:37 03:37 RBC 4.27 L (4.30-5.90) m/uL Hgb 12.7 L (13.0-17.5) gm/dL MCV 101.3 H (80.0-100.0) fL MCHC 29.4 L (31.0-37.0) g/dL PT (10.0-12.5) sec INR (<1.2) Sodium 134 L (137-145) mmol/L Creatinine 0.58 L (0.66-1.25) mg/dL Glucose (74-99) mg/dL C-Reactive Protein (<1.0) mg/dL Albumin (3.5-5.0) g/dL Assessment and Plan Assessment: 1. Infected nonhealing wounds to right foot 2. Recent great toe amputation secondary infected toe with gangrene 3. Severe peripheral arterial disease with previous revascularization 4. Diabetes mellitus 5. Smoker 6. History of coronary artery disease Plan: 1. Hold anticoagulation 2. N.p.o. after midnight 3. Continue antibiotics per recommendations from infectious disease 4. Wound cultures collected and sent 5. Consult to cardiology for cardiac clearance for right [id number] amputation. Cardiology evaluated patient and states he is intermediate to high risk to undergo surgery but no absolute contraindications. 6. Plan for right [id number] amputation tomorrow 7. Can apply wet to dry dressings daily to right lower extremity wounds Thank you for this consultation, we will continue to follow. The impression and plan of care has been dictated as directed. Dr. Walter Chery performed a history and examination of this patient, discussed the same with the dictator. I agree with the dictator's note ,documented as a scribe. Any additional findings or plans will be noted.
[2024-11-11 17:17] LABS: Glucose,Whole Blood 119 mg/dL (70-110)
[2024-11-11 22:07] LABS: Glucose,Whole Blood 93 mg/dL (70-110)
[2024-11-12 06:28] LABS: Glucose,Whole Blood 91 mg/dL (70-110)
[2024-11-12 08:43] LABS: Basophils % (A) 0 %; Eosinophils # (A) 0.2 k/uL (0-0.7); Eosinophils % (A) 3 %; HCT 41.5 % (39.0-53.0); HGB 12.5 gm/dL (13.0-17.5); Hypochromasia Marked; Lymphocytes # (A) 1.4 k/uL (1.0-4.8); Lymphocytes % (A) 17 %; MCH 29.8 pg (25.0-35.0); MCHC 30.1 g/dL (31.0-37.0); MCV 99.1 fL (80.0-100.0); Mean Platelet Volume 7.7; Monocytes # (A) 0.7 k/uL (0-1.0); Monocytes % (A) 8 %; Neutrophils # (A) 5.7 k/uL (1.3-7.7); Neutrophils % (A) 70 %; Platelet Count 310 k/uL (150-450); RBC 4.18 m/uL (4.30-5.90); RDW 13.6 % (11.5-15.5); WBC 8.2 k/uL (3.8-10.6)
[2024-11-12 09:03] LABS: African American GFR (CKD) >90 (>60 ml/min/1.73 sqM); Anion Gap 8 mmol/L; Blood Urea Nitrogen 8 mg/dL (9-20); Calcium 8.5 mg/dL (8.4-10.2); Carbon Dioxide 21 mmol/L (22-30); Chloride 106 mmol/L (98-107); Glucose 90 mg/dL (74-99); Non-African American GFR(CKD) >90 (>60 ml/min/1.73 sqM); Potassium 4.3 mmol/L (3.5-5.1); Sodium 135 mmol/L (137-145)
[2024-11-12] MEDS: IV FLUID CONTINUATION 1,000 ML IV ONE ×2 (09:12→09:50)
[2024-11-12 09:35] LABS: Glucose,Whole Blood 91 mg/dL (70-110)
[2024-11-12] MEDS: ONDANSETRON 4 MG/2 ML VIAL IVP PRN (09:41)
[2024-11-12] MEDS: DEXAMETHASONE SOD PHOSPHATE 4 MG/ML 1 ML VIAL IVP STA (09:48)
[2024-11-12] MEDS: FAMOTIDINE 20 MG/2 ML VIAL IV STA (09:48)
--- NOTE | 2024-11-12 10:07 | P.PN ---
Subjective This is a pleasant 74 years old male with past medical history of multiple medical problems including diabetes mellitus. He was recently in this hospital about 1 month ago and where he was treated for infected diabetic right foot ulcer. He was evaluated by vascular surgery team and he underwent right lower extremity angiogram and on 09/24 followed by right great toe ray amputation.Patient was discharged on Zosyn for 35 days as well as his home medication including Xarelto, diabetic and heart medication. He presents this time with worsening infection and swelling and redness of the whole right foot extending into the distal leg with multiple purulent discharge and ulceration especially on the medial aspect of the right big toe base and on the front of the ankle as well as gangrenous second toe. Patient states this has been going on for the last 2 to 3 weeks. He denies any other complaint like chest pain dyspnea or GI/ symptoms or neurological symptoms He smokes about half pack to 1 pack/day and he was counseled to quit but he de clines. He drinks alcohol 3 times a week mainly to be cans of beer. He denies illicit drugs He is hemodynamically stable Labs basically unremarkable of the CBC, BMP, LFT and INR X-ray of the right tibia and fibula showing no osteomyelitis changes. Patient started on Zosyn and IV vancomycin emergency room admitted with ID team, consult and vascular surgery team consult 11/11 Pain controlled Patient has extensive infection of the right lower extremity and foot Patient require AKA Vascular surgery team recommended cardiac preop evaluation and found moderate to high risk for procedure but there is no contraindication Glucose currently controlled 80-100 Continue with IV antibiotics as per ID team Xarelto on hold which he takes for his peripheral artery disease 11/12 Patient is going for above knee potation of his right lower extremity infection. Patient currently is afebrile and temperature is 98.1. Hemoglobin is 12.1 Creatinine 0.55 rest of CBC, BMP is unremarkable. GROWING KLEBSIELLA PNEUMONIA AND ENTEROBACTER. THE PATIENT REMAINS ON IV VANCOMYCIN AND CEFEPIME AND ALSO ON NORMAL SALINE AT 75 ML/H Objective - Vital Signs Vital signs: Vital Signs Temp 98.1 F 11/12/24 07:59 Pulse 87 11/12/24 09:28 Resp 16 11/12/24 09:28 BP 135/71 11/12/24 09:28 Pulse Ox 98 11/12/24 09:28 FiO2 Intake & Output 0211/12/24 11/12/24 18:59 06:59 18:59 Intake Total 540 Balance 540 Intake: Oral 540 Other: Voiding Method Diaper Diaper Incontinent # Voids 2 2 # Bowel Movements 2 2 - Exam GENERAL: The patient is alert and oriented x3, not in any acute distress. Well developed, well nourished. HEENT: Pupils are round and equally reacting to light. EOMI. No scleral icterus. No conjunctival pallor. Normocephalic, atraumatic. No pharyngeal erythema. No thyromegaly. CARDIOVASCULAR: S1 and S2 present. No murmurs, rubs, or gallops. PULMONARY: Chest is clear to auscultation, no wheezing , no crackles. ABDOMEN: Soft, nontender, nondistended, normoactive bowel sounds. No palpable organomegaly. MUSCULOSKELETAL: No joint swelling or deformity. EXTREMITIES: No cyanosis, clubbing, or pedal edema. -He is status post amputated right first big toe. He has multiple ulceration, mild swelling and redness extending from the lower half of the leg through the whole foot with multiple ulceration, d the biggest ulcer is at the base of the first toe and there is another big vertical ulcer in the front of the ankle with purulent discharge. Also there is gangrenous changes of the second right toe NEUROLOGICAL: Gross neurological examination did not reveal any focal deficits. SKIN: No rashes. no petechiae. - Labs CBC & Chem 7: 11/12/24 08:23 11/12/24 08:23 Labs: Abnormal Lab Results - Last 24 Hours (Table) 11/11/24 11/11/24 11/12/24 Range/Units 03:37 17:16 08:23 RBC 4.18 L (4.30-5.90) m/uL Hgb 12.5 L (13.0-17.5) gm/dL MCHC 30.1 L (31.0-37.0) g/dL Sodium (137-145) mmol/L Carbon Dioxide (22-30) mmol/L BUN (9-20) mg/dL Creatinine (0.66-1.25) mg/dL POC Glucose (mg/dL) 119 H (70-110) mg/dL Hemoglobin A1c 6.5 H (<=6.0) % 11/12/24 Range/Units 08:23 RBC (4.30-5.90) m/uL Hgb (13.0-17.5) gm/dL MCHC (31.0-37.0) g/dL Sodium 135 L (137-145) mmol/L Carbon Dioxide 21 L (22-30) mmol/L BUN 8 L (9-20) mg/dL Creatinine 0.55 L (0.66-1.25) mg/dL POC Glucose (mg/dL) (70-110) mg/dL Hemoglobin A1c (<=6.0) % Microbiology - Last 24 Hours (Table) 11/10/24 15:00 Gram Stain - Preliminary Foot - Right Wound Culture - Preliminary Klebsiella Pneum subsp ozaenae Enterobacter cloacae Complex 11/10/24 11:44 Blood Culture - Preliminary Blood Assessment and Plan Assessment: Right lower extremity infection with multiple ulceration involving the foot and the distal leg. Plan for AKA in 11/12 Peripheral artery disease status post recent angiogram and amputation of the right great toe on 09/29 Preop evaluation for planned right above-knee amputation Diabetes mellitus Hypertension History of avascular necrosis of the right femoral head History of fall Plan: Continue with antibiotic per ID team consult Preop cardiac evaluation found patient as intermediate to high risk for the surgery as patient may require AKA for his right lower extremity severe infection Currently on cefepime IV vancomycin Vascular surgery team consult Labs and medication were reviewed.. Continue same treatment. Continue with symptomatic treatment. Resume home medication. Monitor labs and vitals. DVT and GI prophylaxis. Further recommendations as per clinical course of the patient DVT prophylaxis: Subcutaneous heparin GI Prophylaxis: Pepcid PT/OT: Pending Prognosis is guarded
[2024-11-12] MEDS ORDERED: PROPOFOL 10 MG/ML 20 ML VIAL IV ONE (10:35)
[2024-11-12] MEDS ORDERED: PHENYLEPHRINE-0.9% NACL SYG 1,000 MCG/10 ML SYRINGE ONE (10:35)
[2024-11-12] MEDS ORDERED: MIDAZOLAM 2 MG/2 ML VIAL ONE (10:35)
[2024-11-12] MEDS ORDERED: KETAMINE HCL IN 0.9 % NACL 50 MG/5 ML SYRINGE ONE (10:35)
--- NOTE | 2024-11-12 10:44 | P.PN ---
Subjective Patient off the floor during cardiology rounds in the operating room. Patient will be reevaluated tomorrow. Objective - Vital Signs Vital signs: Vital Signs Temp 98.1 F 11/12/24 07:59 Pulse 87 11/12/24 09:28 Resp 16 11/12/24 09:28 BP 135/71 11/12/24 09:28 Pulse Ox 98 11/12/24 09:28 FiO2 Intake & Output 11/11/24 11/12/24 11/12/24 18:59 06:59 18:59 Intake Total 540 Balance 540 Intake: Oral 540 Other: Voiding Method Diaper Diaper Diaper Incontinent # Voids 2 2 # Bowel Movements 2 2 - Labs CBC & Chem 7: 11/12/24 08:23 11/12/24 08:23 Labs: Abnormal Lab Results - Last 24 Hours (Table) 11/11/24 11/12/24 11/12/24 Range/Units 17:16 08:23 08:23 RBC 4.18 L (4.30-5.90) m/uL Hgb 12.5 L (13.0-17.5) gm/dL MCHC 30.1 L (31.0-37.0) g/dL Sodium 135 L (137-145) mmol/L Carbon Dioxide 21 L (22-30) mmol/L BUN 8 L (9-20) mg/dL Creatinine 0.55 L (0.66-1.25) mg/dL POC Glucose (mg/dL) 119 H (70-110) mg/dL Microbiology - Last 24 Hours (Table) 11/10/24 15:00 Gram Stain - Preliminary Foot - Right Wound Culture - Preliminary Klebsiella Pneum subsp ozaenae Enterobacter cloacae Complex 11/10/24 11:44 Blood Culture - Preliminary Blood
[2024-11-12] MEDS: ceFAZolin 2 GM in SODIUM CHLORIDE 0.9% 500 ML 500 ML IRRIGATION ONE (11:43)
[2024-11-12 12:10] LABS: Glucose,Whole Blood 101 mg/dL (70-110)
--- NOTE | 2024-11-12 12:31 | P.OP ---
Date of Procedure: 11/12/24 Description of Procedure: Preoperative diagnosis: Right lower extremity ischemia nonhealing wound, osteomyelitis Postoperative diagnosis: Same Procedure: Right above-knee amputation Surgeon: Halina June D.O. Anesthesia: Spinal with sedation EBL: 150 cc IV fluids: See records Urine output: None Complications: None immediately apparent Condition: Stable to recovery Operative indication and findings: Patient is a 74-year-old male with a nonhealing wound and worsening of findings. He has poor peripheral vascular disease and no significant opportunity for revascularization therefore the discussion was had regarding potential amputation. He decided this is something he would like to go forward with. Risks and benefits were discussed. He seemed understood and was willing to proceed. Procedure in detail: The patient was taken to the operative suite and placed in supine position. After adequate anesthesia, the right lower extremity was prepped and draped in usual sterile fashion. A preprocedure timeout was performed, all parties were in agreement. Skin marker was utilized and the incision was marked approximately 5 cm proximal to the knee joint. Skin incision was performed and deepened through the subcutaneous tissues to the muscular fascia. The saphenous vein was identified and ligated with 2-0 silk and divided. The muscle groups of the anterior and medial thigh were divided with electrocautery at the same level of the skin incision. The neurovascular bundle was identified on the medial aspect of the thigh. The artery and veins were isolated and suture ligated using 2-0 silk ligature. The sciatic nerve was pulled on stretch and ligated with 2-0 silk tie and divided. The femur was then cleared of its periosteal tissue is elevated roughly 5 cm proximally and was divided with the oscillating saw. The posterior thigh muscles were then divided with electrocautery. The proximal end of the transected femur was smoothed with a rasp. The amputation site was then copiously irrigated. Hemostasis was controlled with electrocautery. The periosteum was reapproximated using interrupted sutures of 2-0 Vicryl. The fascia was reapproximated with interrupted [id number] sutures of 2-0 Vicryl. The skin was reapproximated with trev. A dressing with gauze, Kerlix and a bandage were placed. The patient tolerated the procedure well and was transported to PACU in stable condition
[2024-11-12 15:57] VITALS: BMI 25.8
--- NOTE | 2024-11-12 16:13 | P.PN ---
Subjective Progress Note Date: 11/11/24 Principal diagnosis: Reason for follow-up is right lower extremity gangrene infection Patient is a 74-year-old male with a past medical history significant for diabetes mellitus GI bleed and did have severe peripheral vascular disease in this patient who did have right big toe gangrene status post amputation and also revascularization of the right lower extremity culture at that time were positive for Enterobacter, patient not been brought back to the hospital conc erning for worsening discoloration of the right foot wound and possible need for amputation. On today's evaluation that is 11/11/2024,the patient remains to be afebrile, patient is on room air not requiring supplemental oxygen and denies any shortness of breath no chest pain or cough.Patient denies having any nausea or vomiting, no abdominal pain and no diarrhea and denies any worsening pain to the right foot or lower extremity. Patient did have white count 7.9, creatinine 0.58 Objective - Vital Signs Vital signs: Vital Signs Temp 98.1 F 11/11/24 07:15 Pulse 86 11/11/24 11:37 Resp 18 11/11/24 11:37 BP 149/87 11/11/24 07:15 Pulse Ox 100 11/11/24 07:15 FiO2 Intake & Output 11/10/24 11/11/24 11/11/24 18:59 06:59 18:59 Weight 79.379 kg Other: Voiding Method Diaper # Voids 1 1 # Bowel Movements 1 1 - Exam GENERAL DESCRIPTION: An elderly male lying in bed in no distress RESPIRATORY SYSTEM: Unlabored breathing , decreased breath sounds at bases HEART: S1 S2 regular rate and rhythm , ABDOMEN: Soft , no tenderness EXTREMITIES: Right foot with some necrotic changes around the direct amputation site no foul-smelling drainage - Labs CBC & Chem 7: 11/12/24 08:23 11/12/24 08:23 Labs: Abnormal Lab Results - Last 24 Hours (Table) 11/11/24 11/11/24 11/11/24 Range/Units 03:37 03:37 03:37 RBC 4.27 L (4.30-5.90) m/uL Hgb 12.7 L (13.0-17.5) gm/dL MCV 101.3 H (80.0-100.0) fL MCHC 29.4 L (31.0-37.0) g/dL Sodium 134 L (137-145) mmol/L Creatinine 0.58 L (0.66-1.25) mg/dL Hemoglobin A1c 6.5 H (<=6.0) % Assessment and Plan (1) Diabetic infection of right foot Current Visit: Yes Status: Acute Code(s): E11.628 - TYPE 2 DIABETES MELLITUS WITH OTHER SKIN COMPLICATIONS; L08.9 - LOCAL INFECTION OF THE SKIN AND SUBCUTANEOUS TISSUE, UNSP SNOMED Code(s): 372838728 (2) Foot osteomyelitis, right Current Visit: Yes Status: Acute Code(s): M86.9 - OSTEOMYELITIS, UNSPECIFIED SNOMED Code(s): 4305597883291127 (3) Right foot infection Current Visit: Yes Status: Acute Code(s): L08.9 - LOCAL INFECTION OF THE SKIN AND SUBCUTANEOUS TISSUE, UNSP SNOMED Code(s): 959536802 (4) Diabetic gangrene Current Visit: No Status: Acute Code(s): E11.52 - TYPE 2 DIABETES W DIABETIC PERIPHERAL ANGIOPATHY W GANGRENE SNOMED Code(s): 186714973 Plan: 1patient was in the hospital with worsening wound to the right foot area in this patient who did have a history of PAD and right big toe gangrene status post right big toe potation on his last admission and also revascularization now with evidence of worsening wound to the right foot with some necrotic changes as well as wound to the right lower extremity concerning for failure of the medical treatment and vascular surgical surgery for right lbuxf-dzl-ldxk potation with the patient and the family is seem to be agreeable 2-patient is currently being treated with vancomycin and cefepime and Flagyl await surgical invention scheduled for tomorrow Dictation was produced using [employer] software. please excuse any grammatical, word or spelling errors.
--- NOTE | 2024-11-12 16:14 | P.PN ---
Subjective Progress Note Date: 11/12/24 Principal diagnosis: Reason for follow-up is right lower extremity gangrene infection Patient is a 74-year-old male with a past medical history significant for diabetes mellitus GI bleed and did have severe peripheral vascular disease in this patient who did have right big toe gangrene status post amputation and also revascularization of the right lower extremity culture at that time were positive for Enterobacter, patient not been brought back to the hospital conc erning for worsening discoloration of the right foot wound and possible need for amputation.Patient is status post right zwtto-[id number] amputation completed on 11/12/2024 On today's evaluation 11/12/2024, the patient continues to be afebrile, the patient is on room air and breathing comfortably, the Pt denies having any chest pain or cough, the patient denies having any abdominal pain no vomiting or any diarrhea pain to the right dorsum and is currently controlled. Patient white count is 8.2, creatinine 0.55 Objective - Vital Signs Vital signs: Vital Signs Temp 97 F L 11/12/24 11:53 Pulse 91 11/12/24 12:30 Resp 16 11/12/24 12:30 BP 104/59 11/12/24 12:30 Pulse Ox 100 11/12/24 12:30 FiO2 Intake & Output 11/11/24 11/12/24 11/12/24 18:59 06:59 18:59 Intake Total 540 1 Balance 540 1 Weight 79.379 kg Intake: IV 1 Oral 540 Other: Voiding Method Diaper Diaper Diaper Incontinent # Voids 2 2 # Bowel Movements 2 2 - Exam GENERAL DESCRIPTION: An elderly male lying in bed in no distress RESPIRATORY SYSTEM: Unlabored breathing , decreased breath sounds at bases HEART: S1 S2 regular rate and rhythm , ABDOMEN: Soft , no tenderness EXTREMITIES: Right AKA stump is currently dressed - Labs CBC & Chem 7: 11/12/24 08:23 11/12/24 08:23 Labs: Abnormal Lab Results - Last 24 Hours (Table) 11/11/24 11/12/24 11/12/24 Range/Units 17:16 08:23 08:23 RBC 4.18 L (4.30-5.90) m/uL Hgb 12.5 L (13.0-17.5) gm/dL MCHC 30.1 L (31.0-37.0) g/dL Sodium 135 L (137-145) mmol/L Carbon Dioxide 21 L (22-30) mmol/L BUN 8 L (9-20) mg/dL Creatinine 0.55 L (0.66-1.25) mg/dL POC Glucose (mg/dL) 119 H (70-110) mg/dL Microbiology - Last 24 Hours (Table) 11/10/24 15:00 Gram Stain - Preliminary Foot - Right Wound Culture - Preliminary Klebsiella Pneum subsp ozaenae Enterobacter cloacae Complex 11/10/24 11:44 Blood Culture - Preliminary Blood Assessment and Plan (1) Diabetic infection of right foot Current Visit: Yes Status: Acute Code(s): E11.628 - TYPE 2 DIABETES MELLITUS WITH OTHER SKIN COMPLICATIONS; L08.9 - LOCAL INFECTION OF THE SKIN AND SUBCUTANEOUS TISSUE, UNSP SNOMED Code(s): 910140255 (2) Foot osteomyelitis, right Current Visit: Yes Status: Acute Code(s): M86.9 - OSTEOMYELITIS, UNSPECIFIED SNOMED Code(s): 8986963934029244 (3) Right foot infection Current Visit: Yes Status: Acute Code(s): L08.9 - LOCAL INFECTION OF THE SKIN AND SUBCUTANEOUS TISSUE, UNSP SNOMED Code(s): 049239428 (4) Diabetic gangrene Current Visit: No Status: Acute Code(s): E11.52 - TYPE 2 DIABETES W DIABETIC PERIPHERAL ANGIOPATHY W GANGRENE SNOMED Code(s): 481503851 Plan: 1patient was in the hospital with worsening wound to the right foot area in this patient who did have a history of PAD and right big toe gangrene status post right big toe potation on his last admission and also revascularization now with evidence of worsening wound to the right foot with some necrotic changes as well as wound to the right lower extremity concerning for failure of the medical treatment and vascular surgical surgery for right psvss-woy-otsx potation with the patient and the family is seem to be agreeable 2-patient is status post right above-knee amputation within affected part removed he would not need to be on long-term antibiotic therapy for now continue with vancomycin and cefepime and Flagyl while inpatient Dictation was produced using [employer] dictation software. please excuse any grammatical, word or spelling errors.
[2024-11-12 16:21] LABS: Glucose,Whole Blood 147 mg/dL (70-110)
[2024-11-12] MEDS: HYDROmorphone 0.5 MG/0.5 ML SYRINGE IVP PRN (17:12)
[2024-11-12 20:27] LABS: Glucose,Whole Blood 185 mg/dL (70-110)
[2024-11-12] MEDS: VANCOMYCIN TROUGH DUE 1 EACH MISC MISCELLANE ONE (21:59)
[2024-11-13 06:23] LABS: Glucose,Whole Blood 157 mg/dL (70-110)
[2024-11-13] MEDS: VANCOMYCIN 1,500 MG in SODIUM CHLORIDE 0.9% 500 ML 500 ML IVPB SCH (07:57)
[2024-11-13 08:08] LABS: HCT 35.1 % (39.0-53.0); HGB 10.3 gm/dL (13.0-17.5); Hypochromasia Marked; MCH 30.9 pg (25.0-35.0); MCHC 29.4 g/dL (31.0-37.0); Macrocytosis Moderate; Mean Platelet Volume 9.2; Platelet Count 242 k/uL (150-450); RBC 3.33 m/uL (4.30-5.90); RDW 13.8 % (11.5-15.5); WBC 10.7 k/uL (3.8-10.6)
[2024-11-13 08:10] LABS: MCV 105.3 fL (80.0-100.0)
--- NOTE | 2024-11-13 11:08 | P.PN ---
Subjective Progress Note Date: 11/13/24 HISTORY OF PRESENT ILLNESS: This is a 74-year-old male with a past medical history significant for diabetes and peripheral arterial disease. Patient follows in the office with Dr. Munroe. We have been asked to see the patient in consultation for cardiac clearance for right AKA. Patient examined at the bedside. Patient is admitted to the hospital for worsening infection of right lower extremity. Patient is scheduled to undergo right dcapt-ygv-eqtj amputation tomorrow 11/12/2024. Patient currently d enies any chest pain or pressure. He denies any shortness of breath. Vital signs are stable. Patient denies any known history of coronary artery disease. He denies undergoing any previous cardiac catheterization or stenting. DIAGNOSTICS: - EKG reveals sinus mechanism with no signs of acute ischemia. - Laboratory data: WBC 7.9. Hemoglobin 12.7. Platelet count 284. Sodium 134. Potassium 4.0. BUN 12. Creatinine 0.58. Recent lipid panel reveals cholesterol 128. LDL 83. HDL 26. Hemoglobin A1c 8.9. - Current home cardiac medications include aspirin 81 mg daily, atorvastatin 40 mg daily, Farxiga 10 mg daily, losartan 12.5 mg daily, Xarelto 2.5 mg twice a day - Most recent echocardiogram obtained in September 2024 revealed ejection fraction 55 to 60%, mild tricuspid regurgitation, moderate septal hypertrophy with no LVOT gradient, no obvious regional wall motion abnormalities - Cardiac catheterization history: Patient denies 11/13 Patient seen and examined out on the cardiac stepdown unit. Yesterday, patient underwent right nqpmj-jcz-axez amputation. Blood pressure 143/72, heart rate 97, pulse ox 98% on room air. Repeat blood work reveals WBC 10.7, hemoglobin 10.3. TSH 1.95. Infectious diseases following. Peripheral dose of Xarelto has not been resumed. Patient complains of shooting pain from the right stump. PHYSICAL EXAM: VITAL SIGNS: Reviewed. GENERAL: Well-developed in no acute distress. HEENT: Head is normocephalic. Pupils are equal, round. Sclerae anicteric. Mucous membranes of the mouth are moist. Neck supple. No JVD or thyromegaly LUNGS: Respirations even and unlabored. Lungs essentially clear to auscultation bilaterally. HEART: Regular rate and rhythm. S1 and S2 heard. ABDOMEN: Soft. Nondistended. Nontender. EXTREMITIES: Normal range of motion. No clubbing or cyanosis. Dressings noted to right lower extremity NEUROLOGIC: Awake and alert. ASSESSMENT: Infected nonhealing wound of right foot with osteomyelitis status post right AKA 11/12 Recent great toe amputation secondary to gangrenous infection Peripheral arterial disease with previous revascularization Diabetes, uncontrolled, recent hemoglobin A1c 8.9 Nicotine dependence Frequent alcohol use, patient reports drinking alcohol 3 times a week PLAN: Continue patient on aspirin 81 mg daily, atorvastatin, Farxiga, losartan Recommend tight glucose control as recent hemoglobin A1c is uncontrolled at 8.9 No need to repeat echocardiogram as this was performed in September 2024 Continue current cardiac medications including aspirin, Lipitor, Farxiga, and losartan Peripheral dose of Xarelto remains on hold for upcoming surgery Cardiology will sign off this case and follow on an as-needed basis. Please reconsult for any new concerns. Patient may follow-up in the office in one to 2 weeks. Nurse practitioner note has been reviewed by physician. Signing provider agrees with the documented findings, assessment, and plan of care documented by RFID DEVELOPER as a scribe. Objective - Vital Signs Vital signs: Vital Signs Temp 97.5 F L 11/13/24 08:00 Pulse 97 11/13/24 08:00 Resp 18 11/13/24 08:00 BP 143/72 11/13/24 08:00 Pulse Ox 98 11/13/24 08:00 FiO2 Intake & Output 11/12/24 11/13/24 11/13/24 18:59 06:59 18:59 Intake Total 1301 Output Total 200 Balance 1301 -200 Weight 79.379 kg Intake: IV 1101 Intake, IV Titration 100 Amount Cefepime 2 gm In Sodium 100 Chloride 0.9% 100 ml @ 25 mls/hr IVPB Q8HR [facility] Rx# :[id number] Oral 100 Output: Urine 200 Other: Voiding Method Diaper Diaper # Voids 1 - Labs CBC & Chem 7: 11/13/24 06:11 11/12/24 08:23 Labs: Abnormal Lab Results - Last 24 Hours (Table) 11/12/24 11/12/24 11/12/24 Range/Units 08:23 08:23 16:18 WBC (3.8-10.6) k/uL RBC 4.18 L (4.30-5.90) m/uL Hgb 12.5 L (13.0-17.5) gm/dL Hct (39.0-53.0) % MCV (80.0-100.0) fL MCHC 30.1 L (31.0-37.0) g/dL Sodium 135 L (137-145) mmol/L Carbon Dioxide 21 L (22-30) mmol/L BUN 8 L (9-20) mg/dL Creatinine 0.55 L (0.66-1.25) mg/dL POC Glucose (mg/dL) 147 H (70-110) mg/dL 11/12/24 11/13/24 11/13/24 Range/Units 20:25 06:11 06:18 WBC 10.7 H (3.8-10.6) k/uL RBC 3.33 L (4.30-5.90) m/uL Hgb 10.3 L (13.0-17.5) gm/dL Hct 35.1 L (39.0-53.0) % MCV 105.3 H D (80.0-100.0) fL MCHC 29.4 L (31.0-37.0) g/dL Sodium (137-145) mmol/L Carbon Dioxide (22-30) mmol/L BUN (9-20) mg/dL Creatinine (0.66-1.25) mg/dL POC Glucose (mg/dL) 185 H 157 H (70-110) mg/dL Microbiology - Last 24 Hours (Table) 11/10/24 15:00 Gram Stain - Preliminary Foot - Right Wound Culture - Preliminary Klebsiella Pneum subsp ozaenae Enterobacter cloacae Complex 11/10/24 11:44 Blood Culture - Preliminary Blood
--- NOTE | 2024-11-13 11:30 | P.PN ---
Subjective Progress Note Date: 11/13/24 Is doing well after his postop day #1 from his right above-knee amputation. No significant complaints. Pain is relatively well-controlled. Dressing is clean dry and intact. Will plan to consult prosthetics team for rigid dressing. Discussed with patient who seemingly understands the plan. Hemoglobin 10.7, will monitor Objective - Vital Signs Vital signs: Vital Signs Temp 97.5 F L 11/13/24 08:00 Pulse 97 11/13/24 08:00 Resp 18 11/13/24 08:00 BP 143/72 11/13/24 08:00 Pulse Ox 98 11/13/24 08:00 FiO2 Intake & Output 11/12/24 11/13/24 11/13/24 18:59 06:59 18:59 Intake Total 1301 Output Total 200 Balance 1301 -200 Weight 79.379 kg Intake: IV 1101 Intake, IV Titration 100 Amount Cefepime 2 gm In Sodium 100 Chloride 0.9% 100 ml @ 25 mls/hr IVPB Q8HR [facility] Rx# :[id number] Oral 100 Output: Urine 200 Other: Voiding Method Diaper Diaper # Voids 1 - Labs CBC & Chem 7: 11/13/24 06:11 11/12/24 08:23 Labs: Abnormal Lab Results - Last 24 Hours (Table) 11/12/24 11/12/24 11/13/24 Range/Units 16:18 20:25 06:11 WBC 10.7 H (3.8-10.6) k/uL RBC 3.33 L (4.30-5.90) m/uL Hgb 10.3 L (13.0-17.5) gm/dL Hct 35.1 L (39.0-53.0) % MCV 105.3 H D (80.0-100.0) fL MCHC 29.4 L (31.0-37.0) g/dL POC Glucose (mg/dL) 147 H 185 H (70-110) mg/dL 11/13/24 Range/Units 06:18 WBC (3.8-10.6) k/uL RBC (4.30-5.90) m/uL Hgb (13.0-17.5) gm/dL Hct (39.0-53.0) % MCV (80.0-100.0) fL MCHC (31.0-37.0) g/dL POC Glucose (mg/dL) 157 H (70-110) mg/dL Microbiology - Last 24 Hours (Table) 11/10/24 15:00 Gram Stain - Preliminary Foot - Right Wound Culture - Preliminary Klebsiella Pneum subsp ozaenae Enterobacter cloacae Complex 11/10/24 11:44 Blood Culture - Preliminary Blood
[2024-11-13 11:55] LABS: Glucose,Whole Blood 127 mg/dL (70-110)
--- NOTE | 2024-11-13 15:10 | P.PN ---
Progress Note - Text Interval History: This is a pleasant 74 years old male with past medical history of multiple medical problems including diabetes mellitus. He was recently in this hospital about 1 month ago and where he was treated for infected diabetic right foot ulcer. He was evaluated by vascular surgery team and he underwent right lower extremity angiogram and on 09/24 followed by right great toe ray amputation.Patient was discharged on Zosyn for 35 days as well as his home medication including Xarelto, diabetic and heart medication. He presents this time with worsening infection and swelling and redness of the whole right foot extending into the distal leg with multiple purulent discharge and ulceration especially on the medial aspect of the right big toe base and on the front of the ankle as well as gangrenous second toe. Patient states this has been going on for the last 2 to 3 weeks. He denies any other complaint like chest pain dyspnea or GI/ symptoms or neurological symptoms He smokes about half pack to 1 pack/day and he was counseled to quit but he declines. He drinks alcohol 3 times a week mainly to be cans of beer. He denies illicit drugs He is hemodynamically stable Labs basically unremarkable of the CBC, BMP, LFT and INR X-ray of the right tibia and fibula showing no osteomyelitis changes. Patient started on Zosyn and IV vancomycin emergency room admitted with ID team, consult and vascular surgery team consult 11/11 Pain controlled Patient has extensive infection of the right lower extremity and foot Patient require AKA Vascular surgery team recommended cardiac preop evaluation and found moderate to high risk for procedure but there is no contraindication Glucose currently controlled 80-100 Continue with IV antibiotics as per ID team Xarelto on hold which he takes for his peripheral artery disease 11/12 Patient is going for above knee potation of his right lower extremity infection. Patient currently is afebrile and temperature is 98.1. Hemoglobin is 12.1 Creatinine 0.55 rest of CBC, BMP is unremarkable. GROWING KLEBSIELLA PNEUMONIA AND ENTEROBACTER. THE PATIENT REMAINS ON IV VANCOMYCIN AND CEFEPIME AND ALSO ON NORMAL SALINE AT 75 ML/H 11/13--patient was seen and examined today. Pain is controlled. Patient underwent right above-knee amputation yesterday by vascular surgery. Patient is afebrile, heart rate 75, blood respiratory rate 18, blood pressure 140/77, saturating 97% on room air. WBCs 10.7, hemoglobin 10.3, platelet 242. Currently on vancomycin, cefepime and Flagyl. Infectious disease following. Assessment and plan: Right lower extremity infection with multiple ulceration involving the foot and the distal leg. s/p AKA 11/12 Peripheral artery disease status post recent angiogram and amputation of the right great toe on 09/29 Preop evaluation for planned right above-knee amputation Diabetes mellitus Hypertension History of avascular necrosis of the right femoral head History of fall Plan: Continue with antibiotic per ID team consult Preop cardiac evaluation found patient as intermediate to high risk for the surgery as patient may require AKA for his right lower extremity severe infection Currently on cefepime IV vancomycin Vascular surgery team consulted--status post AKA 11/12 PT/OT consult. DVT prophylaxis: Subcutaneous heparin Monitor vital signs and labs Labs and medication were reviewed. Continue same treatment. Further recommendations as per clinical course of the patient PHYSICAL EXAMINATION: GENERAL: The patient is A&O x3, NAD HEENT: EOMI, Sclerae anicteric, Moist Mucous membranes Neck: Supple, Non tender, No JVD PULMONARY: Equal breath souds B/L, No wheezing, No crackles. CARDIOVASCULAR: S1, S2 present. No murmurs, rubs, or gallops. ABDOMEN: Soft, nontender, nondistended, normoactive bowel sounds. No guarding or rebound tenderness. MUSCULOSKELETAL: RLE--AKA- dressing c/d/i. No edema, No cyanosis. No clubbing. Normal ROM. Intact peripheral pulses. NEUROLOGICAL: CN 2-12 grossly intact. No FND Skin: No Rash REVIEW OF SYSTEMS: CONSTITUTIONAL: No fever or chills. CARDIOVASCULAR: No chest pain, palpitations or syncope. PULMONARY: No shortness of breath, no cough, sore throat. GASTROINTESTINAL: No nausea, vomiting, diarrhea, abdominal pain. : No Dysuria, urgency, frequency. Extremities: No edema. NEUROLOGICAL: No headaches, no weakness, or numbness Dictation was produced using [employer] software. please excuse any grammatical, word or spelling errors.
[2024-11-13 16:24] LABS: Glucose,Whole Blood 149 mg/dL (70-110)
[2024-11-13 19:47] LABS: Glucose,Whole Blood 111 mg/dL (70-110)
[2024-11-14 05:57] LABS: Glucose,Whole Blood 95 mg/dL (70-110)
[2024-11-14 07:12] LABS: African American GFR (CKD) >90 (>60 ml/min/1.73 sqM); Anion Gap 8 mmol/L; Blood Urea Nitrogen 9 mg/dL (9-20); Calcium 8.2 mg/dL (8.4-10.2); Carbon Dioxide 23 mmol/L (22-30); Chloride 100 mmol/L (98-107); Glucose 82 mg/dL (74-99); Non-African American GFR(CKD) >90 (>60 ml/min/1.73 sqM); Potassium 3.8 mmol/L (3.5-5.1); Sodium 131 mmol/L (137-145)
[2024-11-14 07:52] LABS: Basophils % (A) 0 %; Eosinophils % (A) 0 %; HGB 10.4 gm/dL (13.0-17.5); Hypochromasia Marked; Lymphocytes # (A) 1.2 k/uL (1.0-4.8); Lymphocytes % (A) 15 %; MCH 29.9 pg (25.0-35.0); MCHC 30.6 g/dL (31.0-37.0); Mean Platelet Volume 9.3; Monocytes # (A) 0.8 k/uL (0-1.0); Monocytes % (A) 10 %; Neutrophils # (A) 6.1 k/uL (1.3-7.7); Neutrophils % (A) 73 %; Platelet Count 264 k/uL (150-450); RBC 3.48 m/uL (4.30-5.90); RDW 13.6 % (11.5-15.5); WBC 8.3 k/uL (3.8-10.6)
[2024-11-14 07:56] LABS: MCV 97.8 fL (80.0-100.0)
[2024-11-14] MEDS: METOPROLOL SUCCINATE (ER) 25 MG TAB.ER.24H PO SCH (11:51)
--- NOTE | 2024-11-14 11:54 | P.PN ---
Subjective Progress Note Date: 11/14/24 Is doing well after his postop day #2 from his right above-knee amputation. No significant complaints. Pain is relatively well-controlled. Dressing is clean dry and intact. Contacted jose ramon and arsh regarding rigid dressing. Discussed with patient who seemingly understands the plan. Hemoglobin able. No indication for transfusion at this time Objective - Vital Signs Vital signs: Vital Signs Temp 97.9 F 11/14/24 08:00 Pulse 88 11/14/24 08:00 Resp 18 11/14/24 08:00 BP 138/71 11/14/24 08:00 Pulse Ox 98 11/14/24 08:00 FiO2 Intake & Output 11/13/24 11/14/24 11/14/24 18:59 06:59 18:59 Intake Total 240 Output Total 700 200 Balance -700 40 Intake: Oral 240 Output: Urine 700 200 Other: Voiding Method Diaper - Labs CBC & Chem 7: 11/14/24 05:51 11/14/24 05:51 Labs: Abnormal Lab Results - Last 24 Hours (Table) 11/13/24 11/13/24 11/13/24 Range/Units 11:54 16:22 19:42 RBC (4.30-5.90) m/uL Hgb (13.0-17.5) gm/dL Hct (39.0-53.0) % MCHC (31.0-37.0) g/dL Sodium (137-145) mmol/L Creatinine (0.66-1.25) mg/dL POC Glucose (mg/dL) 127 H 149 H 111 H (70-110) mg/dL Calcium (8.4-10.2) mg/dL 11/14/24 11/14/24 Range/Units 05:51 05:51 RBC 3.48 L (4.30-5.90) m/uL Hgb 10.4 L (13.0-17.5) gm/dL Hct 34.0 L (39.0-53.0) % MCHC 30.6 L (31.0-37.0) g/dL Sodium 131 L (137-145) mmol/L Creatinine 0.47 L (0.66-1.25) mg/dL POC Glucose (mg/dL) (70-110) mg/dL Calcium 8.2 L (8.4-10.2) mg/dL Microbiology - Last 24 Hours (Table) 11/10/24 15:00 Gram Stain - Final Foot - Right Wound Culture - Final Klebsiella Pneum subsp ozaenae Enterobacter cloacae Complex 11/10/24 11:44 Blood Culture - Preliminary Blood
[2024-11-14 12:06] LABS: Glucose,Whole Blood 97 mg/dL (70-110)
--- NOTE | 2024-11-14 12:23 | P.PN ---
Subjective Progress Note Date: 11/14/24 HISTORY OF PRESENT ILLNESS: This is a 74-year-old male with a past medical history significant for diabetes and peripheral arterial disease. Patient follows in the office with Dr. Munroe. We have been asked to see the patient in consultation for cardiac clearance for right AKA. Patient examined at the bedside. Patient is admitted to the hospital for worsening infection of right lower extremity. Patient is scheduled to undergo right muxgj-rbq-euus amputation tomorrow 11/12/2024. Patient currently d enies any chest pain or pressure. He denies any shortness of breath. Vital signs are stable. Patient denies any known history of coronary artery disease. He denies undergoing any previous cardiac catheterization or stenting. DIAGNOSTICS: - EKG reveals sinus mechanism with no signs of acute ischemia. - Laboratory data: WBC 7.9. Hemoglobin 12.7. Platelet count 284. Sodium 134. Potassium 4.0. BUN 12. Creatinine 0.58. Recent lipid panel reveals cholesterol 128. LDL 83. HDL 26. Hemoglobin A1c 8.9. - Current home cardiac medications include aspirin 81 mg daily, atorvastatin 40 mg daily, Farxiga 10 mg daily, losartan 12.5 mg daily, Xarelto 2.5 mg twice a day - Most recent echocardiogram obtained in September 2024 revealed ejection fraction 55 to 60%, mild tricuspid regurgitation, moderate septal hypertrophy with no LVOT gradient, no obvious regional wall motion abnormalities - Cardiac catheterization history: Patient denies 11/13 Patient seen and examined out on the cardiac stepdown unit. Yesterday, patient underwent right xhztr-qfc-xhpp amputation. Blood pressure 143/72, heart rate 97, pulse ox 98% on room air. Repeat blood work reveals WBC 10.7, hemoglobin 10.3. TSH 1.95. Infectious diseases following. Peripheral dose of Xarelto has not been resumed. Patient complains of shooting pain from the right stump. 3/2 Patient seen and examined. Yesterday, we had signed off this case but this morning, patient had episodes of what looked to be SVT running up to 170, conv erting back to sinus and then back to SVT. Patient was asymptomatic during these episodes. He denies chest pain or chest pressure. He denies palpitations. He denies ever being told he had atrial fibrillation in the past. Blood pressure 138/71, heart rate 88, pulse ox 98% on room air. Repeat blood work reveals hemoglobin 10.4, BUN 9 and creatinine 0.47. Potassium 3.8 and magnesium 1.8. PHYSICAL EXAM: VITAL SIGNS: Reviewed. GENERAL: Well-developed in no acute distress. HEENT: Head is normocephalic. Pupils are equal, round. Sclerae anicteric. LUNGS: Respirations even and unlabored. Lungs essentially clear to auscultation bilaterally. HEART: Regular rate and rhythm. S1 and S2 heard. ABDOMEN: Soft. Nondistended. Nontender. EXTREMITIES: No clubbing or cyanosis. Dressing to the right atmvr-gwd-zumd stump. NEUROLOGIC: Awake and alert. ASSESSMENT: SVT Infected nonhealing wound of right foot with osteomyelitis status post right AKA 11/12 Recent great toe amputation secondary to gangrenous infection Peripheral arterial disease with previous revascularization Diabetes, uncontrolled, recent hemoglobin A1c 8.9 Nicotine dependence Frequent alcohol use, patient reports drinking alcohol 3 times a week PLAN: Continue patient on aspirin 81 mg daily, atorvastatin, Farxiga, losartan Start patient on metoprolol succinate 25 mg daily No need to repeat echocardiogram as this was performed in September 2024 Continue current cardiac medications including aspirin, Lipitor, Farxiga, and l osartan Peripheral dose of Xarelto remains on hold due to recent surgery Plan to monitor patient for another 24 hours. Nurse practitioner note has been reviewed by physician. Signing provider agrees with the documented findings, assessment, and plan of care documented by SENIOR WEB DESIGNER as a scribe. Objective - Vital Signs Vital signs: Vital Signs Temp 97.9 F 11/14/24 08:00 Pulse 88 11/14/24 08:00 Resp 18 11/14/24 08:00 BP 138/71 11/14/24 08:00 Pulse Ox 98 11/14/24 08:00 FiO2 Intake & Output 11/13/24 11/14/24 11/14/24 18:59 06:59 18:59 Intake Total 240 Output Total 700 200 Balance -700 40 Intake: Oral 240 Output: Urine 700 200 Other: Voiding Method Diaper - Labs CBC & Chem 7: 11/14/24 05:51 11/14/24 05:51 Labs: Abnormal Lab Results - Last 24 Hours (Table) 11/13/24 11/13/24 11/13/24 Range/Units 11:54 16:22 19:42 RBC (4.30-5.90) m/uL Hgb (13.0-17.5) gm/dL Hct (39.0-53.0) % MCHC (31.0-37.0) g/dL Sodium (137-145) mmol/L Creatinine (0.66-1.25) mg/dL POC Glucose (mg/dL) 127 H 149 H 111 H (70-110) mg/dL Calcium (8.4-10.2) mg/dL 11/14/24 11/14/24 Range/Units 05:51 05:51 RBC 3.48 L (4.30-5.90) m/uL Hgb 10.4 L (13.0-17.5) gm/dL Hct 34.0 L (39.0-53.0) % MCHC 30.6 L (31.0-37.0) g/dL Sodium 131 L (137-145) mmol/L Creatinine 0.47 L (0.66-1.25) mg/dL POC Glucose (mg/dL) (70-110) mg/dL Calcium 8.2 L (8.4-10.2) mg/dL Microbiology - Last 24 Hours (Table) 11/10/24 15:00 Gram Stain - Final Foot - Right Wound Culture - Final Klebsiella Pneum subsp ozaenae Enterobacter cloacae Complex 11/10/24 11:44 Blood Culture - Preliminary Blood
--- NOTE | 2024-11-14 14:31 | P.PN ---
Subjective Progress Note Date: 11/13/24 Principal diagnosis: Reason for follow-up is right lower extremity gangrene infection Patient is a 74-year-old male with a past medical history significant for diabetes mellitus GI bleed and did have severe peripheral vascular disease in this patient who did have right big toe gangrene status post amputation and also revascularization of the right lower extremity culture at that time were positive for Enterobacter, patient not been brought back to the hospital conc erning for worsening discoloration of the right foot wound and possible need for amputation.Patient is status post right mgqnp-cvg-wosv amputation completed on 11/12/2024 On today's evaluation 11/13/2024, patient did not have any fever and denies any chills, patient is breathing comfortably on room air, patient with no chest pain or cough patient did not have any abdominal pain nausea vomiting or any loose stools pain to the right AKA is currently controlled. Patient white count is 10.7 creatinine is 0.55 as yesterday Objective - Vital Signs Vital signs: Vital Signs Temp 97.7 F 11/13/24 14:00 Pulse 75 11/13/24 14:00 Resp 18 11/13/24 14:00 BP 140/77 11/13/24 14:00 Pulse Ox 97 11/13/24 14:00 FiO2 Intake & Output 11/12/24 11/13/24 11/13/24 18:59 06:59 18:59 Intake Total 1301 Output Total 200 Balance 1301 -200 Weight 79.379 kg Intake: IV 1101 Intake, IV Titration 100 Amount Cefepime 2 gm In Sodium 100 Chloride 0.9% 100 ml @ 25 mls/hr IVPB Q8HR [facility] Rx# :[id number] Oral 100 Output: Urine 200 Other: Voiding Method Diaper Diaper # Voids 1 - Exam GENERAL DESCRIPTION: An elderly male lying in bed in no distress RESPIRATORY SYSTEM: Unlabored breathing , decreased breath sounds at bases HEART: S1 S2 regular rate and rhythm , ABDOMEN: Soft , no tenderness EXTREMITIES: Right AKA stump is currently dressed - Labs CBC & Chem 7: 11/14/24 05:51 11/14/24 05:51 Labs: Abnormal Lab Results - Last 24 Hours (Table) 11/12/24 11/12/24 11/13/24 Range/Units 16:18 20:25 06:11 WBC 10.7 H (3.8-10.6) k/uL RBC 3.33 L (4.30-5.90) m/uL Hgb 10.3 L (13.0-17.5) gm/dL Hct 35.1 L (39.0-53.0) % MCV 105.3 H D (80.0-100.0) fL MCHC 29.4 L (31.0-37.0) g/dL POC Glucose (mg/dL) 147 H 185 H (70-110) mg/dL 11/13/24 11/13/24 Range/Units 06:18 11:54 WBC (3.8-10.6) k/uL RBC (4.30-5.90) m/uL Hgb (13.0-17.5) gm/dL Hct (39.0-53.0) % MCV (80.0-100.0) fL MCHC (31.0-37.0) g/dL POC Glucose (mg/dL) 157 H 127 H (70-110) mg/dL Microbiology - Last 24 Hours (Table) 11/10/24 15:00 Gram Stain - Preliminary Foot - Right Wound Culture - Preliminary Klebsiella Pneum subsp ozaenae Enterobacter cloacae Complex 11/10/24 11:44 Blood Culture - Preliminary Blood Assessment and Plan (1) Diabetic infection of right foot Current Visit: Yes Status: Acute Code(s): E11.628 - TYPE 2 DIABETES MELLITUS WITH OTHER SKIN COMPLICATIONS; L08.9 - LOCAL INFECTION OF THE SKIN AND SUBCUTANEOUS TISSUE, UNSP SNOMED Code(s): 878001730 (2) Foot osteomyelitis, right Current Visit: Yes Status: Acute Code(s): M86.9 - OSTEOMYELITIS, UNSPECIFIED SNOMED Code(s): 0416764056463429 (3) Right foot infection Current Visit: Yes Status: Acute Code(s): L08.9 - LOCAL INFECTION OF THE SKIN AND SUBCUTANEOUS TISSUE, UNSP SNOMED Code(s): 225844779 (4) Diabetic gangrene Current Visit: No Status: Acute Code(s): E11.52 - TYPE 2 DIABETES W DIABETIC PERIPHERAL ANGIOPATHY W GANGRENE SNOMED Code(s): 655682307 Plan: 1patient was in the hospital with worsening wound to the right foot area in this patient who did have a history of PAD and right big toe gangrene status post right big toe potation on his last admission and also revascularization now with evidence of worsening wound to the right foot with some necrotic changes as well as wound to the right lower extremity concerning for failure of the medical treatment and vascular surgical surgery for right bytcr-nzt-ircm potation with the patient and the family is seem to be agreeable 2-patient is status post right above-knee amputation within affected part removed he would not need to be on long-term antibiotic therapy 3patient is currently being treated with vancomycin and cefepime and Flagyl while inpatient Dictation was produced using [employer] dictation software. please excuse any gr ammatical, word or spelling errors. Time with Patient: Less than 30
--- NOTE | 2024-11-14 14:32 | P.PN ---
Subjective Progress Note Date: 11/14/24 Principal diagnosis: Reason for follow-up is right lower extremity gangrene infection Patient is a 74-year-old male with a past medical history significant for diabetes mellitus GI bleed and did have severe peripheral vascular disease in this patient who did have right big toe gangrene status post amputation and also revascularization of the right lower extremity culture at that time were positive for Enterobacter, patient not been brought back to the hospital conc erning for worsening discoloration of the right foot wound and possible need for amputation.Patient is status post right xcpbo-rtl-eyik amputation completed on 11/12/2024 On today's evaluation that is 11/14/2024, Patient is afebrile patient is currently on room air and denies having any shortness of breath, the patient denies any chest pain or cough, the patient denies any nausea vomiting did not h ave any abdominal pain and no diarrhea, the patient pain to the right AKA stump is currently controlled. Patient white count is 8.3, creatinine 0.47 blood culture predominantly grew Enterobacter and Klebsiella sensitive to cefepime Objective - Vital Signs Vital signs: Vital Signs Temp 97.9 F 11/14/24 08:00 Pulse 88 11/14/24 08:00 Resp 18 11/14/24 08:00 BP 138/71 11/14/24 08:00 Pulse Ox 98 11/14/24 08:00 FiO2 Intake & Output 11/13/24 11/14/24 11/14/24 18:59 06:59 18:59 Intake Total 240 Output Total 700 200 Balance -700 40 Intake: Oral 240 Output: Urine 700 200 Other: Voiding Method Diaper - Exam GENERAL DESCRIPTION: An elderly male lying in bed in no distress RESPIRATORY SYSTEM: Unlabored breathing , decreased breath sounds at bases HEART: S1 S2 regular rate and rhythm , ABDOMEN: Soft , no tenderness EXTREMITIES: Right AKA stump is currently dressed no drainage - Labs CBC & Chem 7: 11/14/24 05:51 11/14/24 05:51 Labs: Abnormal Lab Results - Last 24 Hours (Table) 11/13/24 11/13/24 11/14/24 Range/Units 16:22 19:42 05:51 RBC (4.30-5.90) m/uL Hgb (13.0-17.5) gm/dL Hct (39.0-53.0) % MCHC (31.0-37.0) g/dL Sodium 131 L (137-145) mmol/L Creatinine 0.47 L (0.66-1.25) mg/dL POC Glucose (mg/dL) 149 H 111 H (70-110) mg/dL Calcium 8.2 L (8.4-10.2) mg/dL 11/14/24 Range/Units 05:51 RBC 3.48 L (4.30-5.90) m/uL Hgb 10.4 L (13.0-17.5) gm/dL Hct 34.0 L (39.0-53.0) % MCHC 30.6 L (31.0-37.0) g/dL Sodium (137-145) mmol/L Creatinine (0.66-1.25) mg/dL POC Glucose (mg/dL) (70-110) mg/dL Calcium (8.4-10.2) mg/dL Microbiology - Last 24 Hours (Table) 11/10/24 15:00 Gram Stain - Final Foot - Right Wound Culture - Final Klebsiella Pneum subsp ozaenae Enterobacter cloacae Complex 11/10/24 11:44 Blood Culture - Preliminary Blood Assessment and Plan (1) Diabetic infection of right foot Current Visit: Yes Status: Acute Code(s): E11.628 - TYPE 2 DIABETES MELLITUS WITH OTHER SKIN COMPLICATIONS; L08.9 - LOCAL INFECTION OF THE SKIN AND SUBCUTANEOUS TISSUE, UNSP SNOMED Code(s): 440868929 (2) Foot osteomyelitis, right Current Visit: Yes Status: Acute Code(s): M86.9 - OSTEOMYELITIS, UNSPECIFIED SNOMED Code(s): 4293964521710009 (3) Right foot infection Current Visit: Yes Status: Acute Code(s): L08.9 - LOCAL INFECTION OF THE SKIN AND SUBCUTANEOUS TISSUE, UNSP SNOMED Code(s): 041825520 (4) Diabetic gangrene Current Visit: No Status: Acute Code(s): E11.52 - TYPE 2 DIABETES W DIABETIC PERIPHERAL ANGIOPATHY W GANGRENE SNOMED Code(s): 252117236 Plan: 1patient was in the hospital with worsening wound to the right foot area in this patient who did have a history of PAD and right big toe gangrene status post right big toe potation on his last admission and also revascularization now with evidence of worsening wound to the right foot with some necrotic changes as well as wound to the right lower extremity concerning for failure of the medical treatment and vascular surgical surgery for right mgdaf-oeq-ddiv potation with the patient and the family is seem to be agreeable 2-patient is status post right above-knee amputation within affected part removed he would not need to be on long-term antibiotic therapy 3patient cultures growing Klebsiella and Enterobacter sensitive to cefepime to continue along with Flagyl discontinue vancomycin Dictation was produced using [employer] dictation software. please excuse any grammatical, word or spelling errors. Time with Patient: Less than 30
--- NOTE | 2024-11-14 14:33 | P.PN ---
Subjective Progress Note Date: 11/14/24 Interval History: This is a pleasant 74 years old male with past medical history of multiple medical problems including diabetes mellitus. He was recently in this hospital about 1 month ago and where he was treated for infected diabetic right foot ulcer. He was evaluated by vascular surgery team and he underwent right lower extremity angiogram and on 09/24 followed by right great toe ray amputation.Aida stewart was discharged on Zosyn for 35 days as well as his home medication including Xarelto, diabetic and heart medication. He presents this time with worsening infection and swelling and redness of the whole right foot extending into the distal leg with multiple purulent discharge and ulceration especially on the medial aspect of the right big toe base and on the front of the ankle as well as gangrenous second toe. Patient states this has been going on for the last 2 to 3 weeks. He denies any other complaint like chest pain dyspnea or GI/ symptoms or neurological symptoms He smokes about half pack to 1 pack/day and he was counseled to quit but he declines. He drinks alcohol 3 times a week mainly to be cans of beer. He denies illicit drugs He is hemodynamically stable Labs basically unremarkable of the CBC, BMP, LFT and INR X-ray of the right tibia and fibula showing no osteomyelitis changes. Patient started on Zosyn and IV vancomycin emergency room admitted with ID team, consult and vascular surgery team consult 11/11 Pain controlled Patient has extensive infection of the right lower extremity and foot Patient require AKA Vascular surgery team recommended cardiac preop evaluation and found moderate to high risk for procedure but there is no contraindication Glucose currently controlled 80-100 Continue with IV antibiotics as per ID team Xarelto on hold which he takes for his peripheral artery disease 11/12 Patient is going for above knee potation of his right lower extremity infection. Patient currently is afebrile and temperature is 98.1. Hemoglobin is 12.1 Creatinine 0.55 rest of CBC, BMP is unremarkable. GROWING KLEBSIELLA PNEUMONIA AND ENTEROBACTER. THE PATIENT REMAINS ON IV VANCOMYCIN AND CEFEPIME AND ALSO ON NORMAL SALINE AT 75 ML/H 11/13--patient was seen and examined today. Pain is controlled. Patient underwent right above-knee amputation yesterday by vascular surgery. Patient is afebrile, heart rate 75, blood respiratory rate 18, blood pressure 140/77, saturating 97% on room air. WBCs 10.7, hemoglobin 10.3, platelet 242. Currently on vancomycin, cefepime and Flagyl. Infectious disease following. 11/14--patient was seen and examined today. Remained afebrile, heart rate now 88, respiratory rate 18, blood pressure 138/71, saturating 98% on room air. Patient had episode of SVT running up to 170s today, converted back to sinus rhythm and then back to SVT. Cardiology evaluated patient, recommended to start metoprolol, no need to repeat echocardiogram. Vascular surgery following. Currently on vancomycin cefepime and Flagyl, ID infectious disease following. Assessment and plan: Right lower extremity infection with multiple ulceration involving the foot and the distal leg. s/p AKA 11/12 Peripheral artery disease status post recent angiogram and amputation of the right great toe on 09/29 SVT: Preop evaluation for right above-knee amputation Diabetes mellitus Hypertension History of avascular necrosis of the right femoral head History of fall Plan: Continue with antibiotic per ID team consult Preop cardiac evaluation found patient as intermediate to high risk for the surg eric as patient may require AKA for his right lower extremity severe infection Cardiology consulted for SVTrecommended start metoprolol. Continue home meds aspirin, statin, Farxiga, losartan. Currently on cefepime IV vancomycin Vascular surgery team consulted--status post AKA 11/12 PT/OT consult. DVT prophylaxis: Subcutaneous heparin Disposition: PT/OT consulted Monitor vital signs and labs Labs and medication were reviewed. Continue same treatment. Further recommendations as per clinical course of the patient PHYSICAL EXAMINATION: GENERAL: The patient is A&O x3, NAD HEENT: EOMI, Sclerae anicteric, Moist Mucous membranes Neck: Supple, Non tender, No JVD PULMONARY: Equal breath souds B/L, No wheezing, No crackles. CARDIOVASCULAR: S1, S2 present. No murmurs, rubs, or gallops. ABDOMEN: Soft, nontender, nondistended, normoactive bowel sounds. No guarding or rebound tenderness. MUSCULOSKELETAL: RLE--AKA- dressing c/d/i. No edema, No cyanosis. No clubbing. Normal ROM. Intact peripheral pulses. NEUROLOGICAL: CN 2-12 grossly intact. No FND Skin: No Rash REVIEW OF SYSTEMS: CONSTITUTIONAL: No fever or chills. CARDIOVASCULAR: No chest pain, palpitations or syncope. PULMONARY: No shortness of breath, no cough, sore throat. GASTROINTESTINAL: No nausea, vomiting, diarrhea, abdominal pain. : No Dysuria, urgency, frequency. Extremities: No edema. NEUROLOGICAL: No headaches, no weakness, or numbness Dictation was produced using [employer] dictation software. please excuse any grammatical, word or spelling errors. Objective - Vital Signs Vital signs: Vital Signs Temp 97.9 F 11/14/24 08:00 Pulse 88 11/14/24 08:00 Resp 18 11/14/24 08:00 BP 138/71 11/14/24 08:00 Pulse Ox 98 11/14/24 08:00 FiO2 Intake & Output 11/13/24 11/14/24 11/14/24 18:59 06:59 18:59 Intake Total 240 Output Total 700 200 Balance -700 40 Intake: Oral 240 Output: Urine 700 200 Other: Voiding Method Diaper - Labs CBC & Chem 7: 11/14/24 05:51 11/14/24 05:51 Labs: Abnormal Lab Results - Last 24 Hours (Table) 11/13/24 11/13/24 11/14/24 Range/Units 16:22 19:42 05:51 RBC (4.30-5.90) m/uL Hgb (13.0-17.5) gm/dL Hct (39.0-53.0) % MCHC (31.0-37.0) g/dL Sodium 131 L (137-145) mmol/L Creatinine 0.47 L (0.66-1.25) mg/dL POC Glucose (mg/dL) 149 H 111 H (70-110) mg/dL Calcium 8.2 L (8.4-10.2) mg/dL 11/14/24 Range/Units 05:51 RBC 3.48 L (4.30-5.90) m/uL Hgb 10.4 L (13.0-17.5) gm/dL Hct 34.0 L (39.0-53.0) % MCHC 30.6 L (31.0-37.0) g/dL Sodium (137-145) mmol/L Creatinine (0.66-1.25) mg/dL POC Glucose (mg/dL) (70-110) mg/dL Calcium (8.4-10.2) mg/dL Microbiology - Last 24 Hours (Table) 11/10/24 15:00 Gram Stain - Final Foot - Right Wound Culture - Final Klebsiella Pneum subsp ozaenae Enterobacter cloacae Complex 11/10/24 11:44 Blood Culture - Preliminary Blood
[2024-11-14] MEDS: MAGNESIUM OXIDE 400 MG TAB PO STA (16:12)
[2024-11-14 17:13] LABS: Glucose,Whole Blood 90 mg/dL (70-110)
[2024-11-14 20:14] LABS: Glucose,Whole Blood 106 mg/dL (70-110)
[2024-11-14] MEDS: HYDROcodone/APAP 5-325MG 1 EACH TAB PO PRN (20:19)
[2024-11-14] MEDS ORDERED: VANCOMYCIN TROUGH DUE 1 EACH MISC MISCELLANE ONE (21:00)
[2024-11-15 06:12] LABS: Glucose,Whole Blood 86 mg/dL (70-110)
[2024-11-15 07:20] LABS: African American GFR (CKD) >90 (>60 ml/min/1.73 sqM); Anion Gap 12 mmol/L; Blood Urea Nitrogen 13 mg/dL (9-20); Carbon Dioxide 20 mmol/L (22-30); Chloride 101 mmol/L (98-107); Glucose 75 mg/dL (74-99); Magnesium 1.8 mg/dL (1.6-2.3); Non-African American GFR(CKD) >90 (>60 ml/min/1.73 sqM); Sodium 133 mmol/L (137-145)
[2024-11-15 07:27] LABS: Basophils % (A) 0 %; Eosinophils # (A) 0.1 k/uL (0-0.7); Eosinophils % (A) 1 %; HCT 33.7 % (39.0-53.0); HGB 10.1 gm/dL (13.0-17.5); Hypochromasia Slight; Lymphocytes # (A) 1.3 k/uL (1.0-4.8); Lymphocytes % (A) 15 %; MCH 29.1 pg (25.0-35.0); MCHC 29.9 g/dL (31.0-37.0); MCV 97.3 fL (80.0-100.0); Mean Platelet Volume 9.1; Monocytes # (A) 0.7 k/uL (0-1.0); Monocytes % (A) 8 %; Neutrophils # (A) 6.1 k/uL (1.3-7.7); Neutrophils % (A) 73 %; Platelet Count 259 k/uL (150-450); RBC 3.46 m/uL (4.30-5.90); RDW 13.9 % (11.5-15.5); WBC 8.3 k/uL (3.8-10.6)
[2024-11-15] MEDS: RIVAROXABAN 2.5 MG TABLET PO SCH (09:57)
[2024-11-15 11:11] LABS: Glucose,Whole Blood 102 mg/dL (70-110)
--- NOTE | 2024-11-15 11:19 | P.PN ---
Subjective Progress Note Date: 11/15/24 Principal diagnosis: Infected right foot wound Patient is seen and examined today as a follow-up. He was resting comfortably. He is postop day #3 for right icryw-huk-atrh amputation. He was seen by Saman and Marjorie with stump senior risk analyst and rigid dressing applied today. Surgical incision well-approximated with trev no surrounding erythema, skin is pink and warm. He is afebrile. Pain is being controlled with the pain medications. To be seen by PT and OT. Objective - Vital Signs Vital signs: Vital Signs Temp 97.8 F 11/15/24 07:49 Pulse 82 11/15/24 07:49 Resp 16 11/15/24 07:49 BP 147/80 11/15/24 07:49 Pulse Ox 100 11/15/24 07:49 FiO2 Intake & Output 11/14/24 11/15/24 11/15/24 18:59 06:59 18:59 Intake Total 240 Output Total 200 1150 350 Balance 40 -1150 -350 Intake: Oral 240 Output: Urine 200 1150 350 Other: Voiding Method External Catheter External Catheter - Exam General appearance: The patient is alert, oriented, appears in no acute distress. HET: Head is normocephalic and atraumatic. Neck: Supple. Heart: Regular. Lungs: Equal expansion, normal respiratory effort. Abdomen: Soft, nontender, nondistended. Extremities: Right jkthy-kxr-stso amputation surgical site with trev well- approximated without any drainage, erythema. Neurological: No focal deficits. Alert and oriented.. - Labs CBC & Chem 7: 11/15/24 05:55 11/15/24 05:55 Labs: Abnormal Lab Results - Last 24 Hours (Table) 11/15/24 11/15/24 Range/Units 05:55 05:55 RBC 3.46 L (4.30-5.90) m/uL Hgb 10.1 L (13.0-17.5) gm/dL Hct 33.7 L (39.0-53.0) % MCHC 29.9 L (31.0-37.0) g/dL Sodium 133 L (137-145) mmol/L Carbon Dioxide 20 L (22-30) mmol/L Creatinine 0.45 L (0.66-1.25) mg/dL Calcium 8.0 L (8.4-10.2) mg/dL Assessment and Plan Assessment: 1. Postop day #3 for right nnepr-psb-njwc amputation 2. Infected nonhealing wounds to right foot 3. Recent great toe amputation secondary infected toe with gangrene 4. Severe peripheral arterial disease with previous revascularization 5. Diabetes mellitus 6. Smoker 7. History of coronary artery disease Plan: 1. May resume anticoagulation 2. Heart healthy diet 3. Continue antibiotics per recommendations from infectious disease 4. PT and OT on consultation 5. Davison and marjorie applied stump senior risk analyst and rigid dressing 6. Change dressing as needed with Adaptic, 4 x 4 Kerlix apply stump senior risk analyst and rigid dressing 7. Patient is cleared from vascular surgery for discharge Thank you for this consultation, we will continue to follow. The impression and plan of care has been dictated as directed. Dr. Mayo I performed a history and examination of this patient, discussed the same with the dictator. I agree with the dictator's note ,documented as a scribe. Any additional findings or plans will be noted.
--- NOTE | 2024-11-15 13:04 | P.PN ---
Subjective HISTORY OF PRESENT ILLNESS: This is a 74-year-old male with a past medical history significant for diabetes and peripheral arterial disease. Patient follows in the office with Dr. Munroe. We have been asked to see the patient in consultation for cardiac clearance for right AKA. Patient examined at the bedside. Patient is admitted to the hospital for worsening infection of right lower extremity. Patient is scheduled to undergo right mqvxi-lws-rerd amputation tomorrow 11/12/2024. Patient currently denies any chest pain or pressure. He denies any shortness of breath. Vital signs are stable. Patient denies any known history of coronary artery disease. He denies undergoing any previous cardiac catheterization or stenting. DIAGNOSTICS: - EKG reveals sinus mechanism with no signs of acute ischemia. - Laboratory data: WBC 7.9. Hemoglobin 12.7. Platelet count 284. Sodium 134. Potassium 4.0. BUN 12. Creatinine 0.58. Recent lipid panel reveals cholesterol 128. LDL 83. HDL 26. Hemoglobin A1c 8.9. - Current home cardiac medications include aspirin 81 mg daily, atorvastatin 40 mg daily, Farxiga 10 mg daily, losartan 12.5 mg daily, Xarelto 2.5 mg twice a day - Most recent echocardiogram obtained in September 2024 revealed ejection fraction 55 to 60%, mild tricuspid regurgitation, moderate septal hypertrophy with no LVOT gradient, no obvious regional wall motion abnormalities - Cardiac catheterization history: Patient denies 11/13 Patient seen and examined out on the cardiac stepdown unit. Yesterday, patient underwent right mrhol-fcr-sqrs amputation. Blood pressure 143/72, heart rate 97, pulse ox 98% on room air. Repeat blood work reveals WBC 10.7, hemoglobin 10.3. TSH 1.95. Infectious diseases following. Peripheral dose of Xarelto has not been resumed. Patient complains of shooting pain from the right stump. 3/2 Patient seen and examined. Yesterday, we had signed off this case but this morning, patient had episodes of what looked to be SVT running up to 170, converting back to sinus and then back to SVT. Patient was asymptomatic during these episodes. He denies chest pain or chest pressure. He denies palpitations. He denies ever being told he had atrial fibrillation in the past. Blood pressure 138/71, heart rate 88, pulse ox 98% on room air. Repeat blood work reveals hemoglobin 10.4, BUN 9 and creatinine 0.47. Potassium 3.8 and magnesium 1.8. 11/15/2024 Patient examined this morning at the bedside. Patient currently denies chest pain or pressure. He denies shortness of breath. Vital signs are stable. Telemetry reveals sinus mechanism. Peripheral dosing of Xarelto remains on hold. PHYSICAL EXAM: VITAL SIGNS: Reviewed. GENERAL: Well-developed in no acute distress. HEENT: Head is normocephalic. Pupils are equal, round. Sclerae anicteric. Mucous membranes of the mouth are moist. Neck supple. No JVD or thyromegaly LUNGS: Respirations even and unlabored. Lungs essentially clear to auscultation bilaterally. HEART: Regular rate and rhythm. S1 and S2 heard. ABDOMEN: Soft. Nondistended. Nontender. EXTREMITIES: Normal range of motion. No clubbing or cyanosis. Dressing to right kkjft-kkz-pcmq stump. NEUROLOGIC: Awake and alert. Oriented x 3. ASSESSMENT: Paroxysmal SVT Infected nonhealing wound of right foot with osteomyelitis status post right AKA 11/12 Recent great toe amputation secondary to gangrenous infection Peripheral arterial disease with previous revascularization Diabetes, uncontrolled, recent hemoglobin A1c 8.9 Nicotine dependence Frequent alcohol use, patient reports drinking alcohol 3 times a week PLAN: Recommend tight glucose control as recent hemoglobin A1c is uncontrolled at 8.9 No need to repeat echocardiogram as this was performed in September 2024 Continue current cardiac medications including aspirin, Lipitor, Farxiga, metoprolol, and losartan Resume peripheral dosing of Xarelto Continue telemetry monitoring Further recommendations pending patient course Nurse practitioner note has been reviewed by physician. Signing provider agrees with the documented findings, assessment, and plan of care documented by PRESCRIPTIONIST as a scribe. Objective - Vital Signs Vital signs: Vital Signs Temp 98.4 F 11/15/24 11:47 Pulse 78 11/15/24 11:47 Resp 16 11/15/24 11:47 BP 138/71 11/15/24 11:47 Pulse Ox 100 11/15/24 11:47 FiO2 Intake & Output 11/14/24 11/15/24 11/15/24 18:59 06:59 18:59 Intake Total 240 Output Total 200 1150 350 Balance 40 -1150 -350 Intake: Oral 240 Output: Urine 200 1150 350 Other: Voiding Method External Catheter External Catheter - Labs CBC & Chem 7: 11/15/24 05:55 11/15/24 05:55 Labs: Abnormal Lab Results - Last 24 Hours (Table) 11/15/24 11/15/24 Range/Units 05:55 05:55 RBC 3.46 L (4.30-5.90) m/uL Hgb 10.1 L (13.0-17.5) gm/dL Hct 33.7 L (39.0-53.0) % MCHC 29.9 L (31.0-37.0) g/dL Sodium 133 L (137-145) mmol/L Carbon Dioxide 20 L (22-30) mmol/L Creatinine 0.45 L (0.66-1.25) mg/dL Calcium 8.0 L (8.4-10.2) mg/dL
--- NOTE | 2024-11-15 14:35 | P.PN ---
Subjective Interval History: This is a pleasant 74 years old male with past medical history of multiple medical problems including diabetes mellitus. He was recently in this hospital about 1 month ago and where he was treated for infected diabetic right foot ulcer. He was evaluated by vascular surgery team and he underwent right lower extremity angiogram and on 09/24 followed by right great toe ray amputation.Patient was discharged on Zosyn for 35 days as well as his home medication including Xarelto, diabetic and heart medication. He presents this time with worsening infection and swelling and redness of the whole right foot extending into the distal leg with multiple purulent discharge and ulceration especially on the medial aspect of the right big toe base and on the front of the ankle as well as gangrenous second toe. Patient states this has been going on for the last 2 to 3 weeks. He denies any other complaint like chest pain dyspnea or GI/ symptoms or neurological symptoms He smokes about half pack to 1 pack/day and he was counseled to quit but he declines. He drinks alcohol 3 times a week mainly to be cans of beer. He denies illicit drugs He is hemodynamically stable Labs basically unremarkable of the CBC, BMP, LFT and INR X-ray of the right tibia and fibula showing no osteomyelitis changes. Patient started on Zosyn and IV vancomycin emergency room admitted with ID team, consult and vascular surgery team consult 11/11 Pain controlled Patient has extensive infection of the right lower extremity and foot Patient require AKA Vascular surgery team recommended cardiac preop evaluation and found moderate to high risk for procedure but there is no contraindication Glucose currently controlled 80-100 Continue with IV antibiotics as per ID team Xarelto on hold which he takes for his peripheral artery disease 11/12 Patient is going for above knee potation of his right lower extremity infection. Patient currently is afebrile and temperature is 98.1. Hemoglobin is 12.1 Creatinine 0.55 rest of CBC, BMP is unremarkable. GROWING KLEBSIELLA PNEUMONIA AND ENTEROBACTER. THE PATIENT REMAINS ON IV VANCOMYCIN AND CEFEPIME AND ALSO ON NORMAL SALINE AT 75 ML/H 11/13--patient was seen and examined today. Pain is controlled. Patient underwent right above-knee amputation yesterday by vascular surgery. Patient is afebrile, heart rate 75, blood respiratory rate 18, blood pressure 140/77, saturating 97% on room air. WBCs 10.7, hemoglobin 10.3, platelet 242. Currently on vancomycin, cefepime and Flagyl. Infectious disease following. 11/14--patient was seen and examined today. Remained afebrile, heart rate now 88, respiratory rate 18, blood pressure 138/71, saturating 98% on room air. Patient had episode of SVT running up to 170s today, converted back to sinus rhythm and then back to SVT. Cardiology evaluated patient, recommended to start metoprolol, no need to repeat echocardiogram. Vascular surgery following. Currently on vancomycin cefepime and Flagyl, ID infectious disease following. 11/15--patient was seen and examined today. Vital stable, remained afebrile. WBCs 8.3, hemoglobin 10.1, platelet 259. Sodium 133, calcium 4.0, chloride 101, CO2 20, BUN 13, creatinine 0.45, magnesium 1.8. Infectious disease following for final recommendation regarding antibiotics. Okay to resume anticoagulation for peripheral arterial disease per cardiology and vascular surgery. Assessment and plan: Right lower extremity infection with multiple ulceration involving the foot and the distal leg. s/p AKA 11/12 Peripheral artery disease status post recent angiogram and amputation of the right great toe on 09/29 SVT: Preop evaluation for right above-knee amputation Diabetes mellitus Hypertension History of avascular necrosis of the right femoral head History of fall Plan: Continue with antibiotic per ID team consult Preop cardiac evaluation found patient as intermediate to high risk for the surgery as patient may require AKA for his right lower extremity severe infection Cardiology consulted for SVTrecommended start metoprolol. Continue home meds aspirin, statin, Farxiga, losartan. Xarelto 2.5 mg twice daily Currently on cefepime IV vancomycin Vascular surgery team consulted--status post AKA 11/12 PT/OT consult. DVT prophylaxis: Subcutaneous heparin Disposition: PT/OT consulted--awaiting placement to subacute rehab. Monitor vital signs and labs Labs and medication were reviewed. Continue same treatment. Further recommendations as per clinical course of the patient PHYSICAL EXAMINATION: GENERAL: The patient is A&O x3, NAD HEENT: EOMI, Sclerae anicteric, Moist Mucous membranes Neck: Supple, Non tender, No JVD PULMONARY: Equal breath souds B/L, No wheezing, No crackles. CARDIOVASCULAR: S1, S2 present. No murmurs, rubs, or gallops. ABDOMEN: Soft, nontender, nondistended, normoactive bowel sounds. No guarding or rebound tenderness. MUSCULOSKELETAL: RLE--AKA- dressing c/d/i. No edema, No cyanosis. No clubbing. Normal ROM. Intact peripheral pulses. NEUROLOGICAL: CN 2-12 grossly intact. No FND Skin: No Rash REVIEW OF SYSTEMS: CONSTITUTIONAL: No fever or chills. CARDIOVASCULAR: No chest pain, palpitations or syncope. PULMONARY: No shortness of breath, no cough, sore throat. GASTROINTESTINAL: No nausea, vomiting, diarrhea, abdominal pain. : No Dysuria, urgency, frequency. Extremities: No edema. NEUROLOGICAL: No headaches, no weakness, or numbness Dictation was produced using [employer] dictation software. please excuse any grammatical, word or spelling errors. Objective - Vital Signs Vital signs: Vital Signs Temp 98.4 F 11/15/24 11:47 Pulse 78 11/15/24 11:47 Resp 16 11/15/24 11:47 BP 138/71 11/15/24 11:47 Pulse Ox 100 11/15/24 11:47 FiO2 Intake & Output 11/14/24 11/15/24 11/15/24 18:59 06:59 18:59 Intake Total 240 Output Total 200 1150 350 Balance 40 -1150 -350 Intake: Oral 240 Output: Urine 200 1150 350 Other: Voiding Method External Catheter External Catheter - Labs CBC & Chem 7: 11/15/24 05:55 11/15/24 05:55 Labs: Abnormal Lab Results - Last 24 Hours (Table) 11/15/24 11/15/24 Range/Units 05:55 05:55 RBC 3.46 L (4.30-5.90) m/uL Hgb 10.1 L (13.0-17.5) gm/dL Hct 33.7 L (39.0-53.0) % MCHC 29.9 L (31.0-37.0) g/dL Sodium 133 L (137-145) mmol/L Carbon Dioxide 20 L (22-30) mmol/L Creatinine 0.45 L (0.66-1.25) mg/dL Calcium 8.0 L (8.4-10.2) mg/dL
[2024-11-15 16:11] LABS: Glucose,Whole Blood 80 mg/dL (70-110)
[2024-11-15] MEDS ORDERED: Magnesium Replacement Protocol 1 EACH MISC MISCELLANE PRN (16:28)
[2024-11-15] MEDS: MAGNESIUM SULFATE-D5W PMX 1 GM in DEXTROSE/WATER 1 100ML.BAG IVPB ONE (16:46)
[2024-11-15 20:08] LABS: Glucose,Whole Blood 78 mg/dL (70-110)
[2024-11-15] MEDS: INSULIN GLARGINE (LANTUS) 100 UNIT/ML SYR SQ SCH (20:12)
[2024-11-15] MEDS ORDERED: NON FORMULARY DRUG (Insulin Glargine,Hum.Rec.Anlog [Lantus Solostar Pen] 100 UNIT/ML Insul SQ SCH (21:30)
[2024-11-16] MEDS: ZINC OXIDE PASTE (Z-GUARD) 1 APPLIC TOPICAL PRN (05:48)
[2024-11-16 06:29] LABS: Glucose,Whole Blood 100 mg/dL (70-110)
--- NOTE | 2024-11-16 11:04 | P.PN ---
Subjective Progress Note Date: 11/16/24 Principal diagnosis: Infected right foot wound Patient is seen and examined today as a follow-up. He has his stump spring tacker and rigid dressing in place. He states that he has no pain currently. He did not eat his breakfast states that he is not hungry right now. No acute changes through the night. Awaiting insurance authorization for discharge back to [facility]. Objective - Vital Signs Vital signs: Vital Signs Temp 98.1 F 11/16/24 08:00 Pulse 85 11/16/24 08:00 Resp 16 11/16/24 08:00 BP 129/68 11/16/24 08:00 Pulse Ox 99 11/16/24 08:00 FiO2 Intake & Output 11/15/24 11/16/24 11/16/24 18:59 06:59 18:59 Intake Total 222 2190 Output Total 1100 Balance -878 2190 Intake: Oral 222 2190 Output: Urine 1100 Other: Voiding Method External Catheter Diaper # Voids 7 - Exam General appearance: The patient is alert, oriented, appears in no acute distress. HET: Head is normocephalic and atraumatic. Neck: Supple. Heart: Regular. Lungs: Equal expansion, normal respiratory effort. Abdomen: Soft, nontender, nondistended. Extremities: Right fioen-wij-dwqa amputation surgical site with trev well- approximated without any drainage, erythema. Neurological: No focal deficits. Alert and oriented.. - Labs CBC & Chem 7: 11/15/24 05:55 11/15/24 05:55 Labs: Microbiology - Last 24 Hours (Table) 11/10/24 11:44 Blood Culture - Final Blood Assessment and Plan Assessment: 1. Postop day #3 for right bqveg-vff-oziv amputation 2. Infected nonhealing wounds to right foot 3. Recent great toe amputation secondary infected toe with gangrene 4. Severe peripheral arterial disease with previous revascularization 5. Diabetes mellitus 6. Smoker 7. History of coronary artery disease Plan: 1. May resume anticoagulation 2. Heart healthy diet 3. Continue antibiotics per recommendations from infectious disease 4. PT and OT on consultation 5. Saman and reuben applied stump spring tacker and rigid dressing 6. Change dressing as needed with Adaptic, 4 x 4 Kerlix apply stump spring tacker and rigid dressing 7. Rest of medical management per primary medical team Thank you for this consultation, patient is cleared from vascular surgery for discharge. The impression and plan of care has been dictated as directed. Dr. Ko I performed a history and examination of this patient, discussed the same with the dictator. I agree with the dictator's note ,documented as a scribe. Any additional findings or plans will be noted.
--- NOTE | 2024-11-16 11:31 | P.DS ---
Providers Date of admission: 11/10/24 13:21 Attending physician: Darinel Castellanos MD Consults: 11/10/24 11:33 Consult Physician Urgent Consulting Provider: Halina Grimes Consult Reason/Comments: Infection recent amputation Do you want consulting provider notified?: Yes 11/10/24 13:10 Consult Physician Routine Consulting Provider: Tyler Medeiros Consult Reason/Comments: infected right leg wound Do you want consulting provider notified?: Yes 11/10/24 15:02 Consult Physician Routine Consulting Provider: René Betancur Consult Reason/Comments: Right zngew-jnc-ufzf amputation Do you want consulting provider notified?: Yes 11/14/24 09:30 Consult Physician Routine Consulting Provider: René Betancur Consult Reason/Comments: PSVT Do you want consulting provider notified?: Already Contacted Primary care physician: Sudheer Lubin Hospital Course: Discharge diagnoses: Right lower extremity infection with multiple ulceration involving the foot and the distal leg. s/p AKA 11/12 Peripheral artery disease status post recent angiogram and amputation of the right great toe on 09/29 SVT: Preop evaluation for right above-knee amputation Diabetes mellitus Hypertension History of avascular necrosis of the right femoral head History of fall Plan ID consulted, patient saved IV antibiotics during hospitalization, stopped antibiotics prior to discharge and after source control with right AKA on 11/12. Preop cardiac evaluation found patient as intermediate to high risk for the surgery as patient may require AKA for his right lower extremity severe infection Cardiology consulted for SVTrecommended start metoprolol. Continue home meds aspirin, statin, Farxiga, losartan. Xarelto 2.5 mg twice daily resumed Added metoprolol Home medications resumed. Vascular surgery team consulted--status post AKA 11/12 Hospital course: This is a pleasant 74 years old male with past medical history of multiple medical problems including diabetes mellitus. He was recently in this hospital about 1 month ago and where he was treated for infected diabetic right foot ulcer. He was evaluated by vascular surgery team and he underwent right lower extremity angiogram and on 09/24 followed by right great toe ray amputation.Patient was discharged on Zosyn for 35 days as well as his home medication including Xarelto, diabetic and heart medication. He presents this time with worsening infection and swelling and redness of the whole right foot extending into the distal leg with multiple purulent discharge and ulceration especially on the medial aspect of the right big toe base and on the front of the ankle as well as gangrenous second toe. Patient states this has been going on for the last 2 to 3 weeks. He denies any other complaint like chest pain dyspnea or GI/ symptoms or neurological symptoms He smokes about half pack to 1 pack/day and he was counseled to quit but he declines. He drinks alcohol 3 times a week mainly to be cans of beer. He denies illicit drugs He is hemodynamically stable Labs basically unremarkable of the CBC, BMP, LFT and INR X-ray of the right tibia and fibula showing no osteomyelitis changes. Patient started on Zosyn and IV vancomycin emergency room admitted with ID team, consult and vascular surgery team consult 11/11 Pain controlled Patient has extensive infection of the right lower extremity and foot Patient require AKA Vascular surgery team recommended cardiac preop evaluation and found moderate to high risk for procedure but there is no contraindication Glucose currently controlled 80-100 Continue with IV antibiotics as per ID team Xarelto on hold which he takes for his peripheral artery disease 11/12 Patient is going for above knee potation of his right lower extremity infection. Patient currently is afebrile and temperature is 98.1. Hemoglobin is 12.1 Creatinine 0.55 rest of CBC, BMP is unremarkable. GROWING KLEBSIELLA PNEUMONIA AND ENTEROBACTER. THE PATIENT REMAINS ON IV VANCOMYCIN AND CEFEPIME AND ALSO ON NORMAL SALINE AT 75 ML/H 11/13--patient was seen and examined today. Pain is controlled. Patient underwent right above-knee amputation yesterday by vascular surgery. Patient is afebrile, heart rate 75, blood respiratory rate 18, blood pressure 140/77, saturating 97% on room air. WBCs 10.7, hemoglobin 10.3, platelet 242. Currently on vancomycin, cefepime and Flagyl. Infectious disease following. 11/14--patient was seen and examined today. Remained afebrile, heart rate now 88, respiratory rate 18, blood pressure 138/71, saturating 98% on room air. Patient had episode of SVT running up to 170s today, converted back to sinus rhythm and then back to SVT. Cardiology evaluated patient, recommended to start metoprolol, no need to repeat echocardiogram. Vascular surgery following. Currently on vancomycin cefepime and Flagyl, ID infectious disease following. 11/15--patient was seen and examined today. Vital stable, remained afebrile. WBCs 8.3, hemoglobin 10.1, platelet 259. Sodium 133, calcium 4.0, chloride 101, CO2 20, BUN 13, creatinine 0.45, magnesium 1.8. Infectious disease following for final recommendation regarding antibiotics. Okay to resume anticoagulation for peripheral arterial disease per cardiology and vascular surgery. 11/16--patient was seen and examined today. Vital stable. Discussed with infectious disease, okay to stop antibiotics. Patient discharged to subacute rehab. Patient's home medications resumed at discharge. Please refer to medical assessment plan for further details. Follow-up with PCP in 1 week Follow-up with cardiology, vascular surgery as outpatient. PHYSICAL EXAMINATION: GENERAL: The patient is A&O x3, NAD HEENT: EOMI, Sclerae anicteric, Moist Mucous membranes Neck: Supple, Non tender, No JVD PULMONARY: Equal breath souds B/L, No wheezing, No crackles. CARDIOVASCULAR: S1, S2 present. No murmurs, rubs, or gallops. ABDOMEN: Soft, nontender, nondistended, normoactive bowel sounds. No guarding or rebound tenderness. MUSCULOSKELETAL: RLE--AKA- dressing c/d/i. No edema, No cyanosis. No clubbing. Normal ROM. Intact peripheral pulses. NEUROLOGICAL: CN 2-12 grossly intact. No FND Skin: No Rash Dictation was produced using [email or web address] dictation software. please excuse any grammatical, word or spelling errors. Patient Condition at Discharge: Fair Plan - Discharge Summary Discharge Rx Participant: No New Discharge Prescriptions: New HYDROcodone/APAP 5-325MG [Beulah 5-325] 1 each PO Q4HR PRN #18 tab PRN Reason: Moderate Pain (Scale 4 To 6) Metoprolol Succinate (ER) [Toprol XL] 25 mg PO DAILY #30 tab Continue Na Phos,M-B/Na Phos,Di-Ba [Fleet Adult] 133 ml RECTAL DAILY PRN PRN Reason: Constipation Magic Butt Paste 1 applic TOPICAL TID Acetaminophen [Tylenol Arthritis] 650 mg PO Q6H PRN PRN Reason: general discomfort INSULIN LISPRO (humaLOG) [humaLOG] See Protocol SQ AC-TID@07,11,1630 Magic Cup 1 box PO BID@1200,1700 Josafat Packet 1 packet PO BID@0800,1700 Pantoprazole [Protonix] 40 mg PO DAILY@0800 Losartan [Cozaar] 12.5 mg PO DAILY@0800 Insulin Glargine,Hum.rec.anlog [Lantus Solostar Pen] 24 units SQ HS@2130 Dapagliflozin Propanediol [Farxiga] 10 mg PO DAILY@0800 Magnesium Hydroxide [Milk of Magnesia Concentrate] 7,200 mg PO DAILY PRN PRN Reason: Constipation bisacodyL [Dulcolax] 10 mg RECTAL DAILY PRN PRN Reason: Constipation Rivaroxaban [Xarelto] 2.5 mg PO BID@0800,1700 Nicotine 14Mg/24Hr Patch [Habitrol] 1 patch TRANSDERM DAILY@0800 Lidocaine 5% Cream 1 applic TOPICAL WE@0800 Atorvastatin [Lipitor] 40 mg PO DAILY@0800 Aspirin 81 mg PO DAILY@0800 Discontinued Piperacillin-Tazobactam [Zosyn] 3.375 gm IVPB TID@ Discharge Medication List Acetaminophen [Tylenol Arthritis] 650 mg PO Q6H PRN 11/10/24 [History] Aspirin 81 mg PO DAILY@0800 11/10/24 [History] Atorvastatin [Lipitor] 40 mg PO DAILY@0800 11/10/24 [History] Dapagliflozin Propanediol [Farxiga] 10 mg PO DAILY@0800 11/10/24 [History] INSULIN LISPRO (humaLOG) [humaLOG] See Protocol SQ AC-TID@07,,1630 11/10/24 [History] Insulin Glargine,Hum.rec.anlog [Lantus Solostar Pen] 24 units SQ HS@2130 11/10/24 [History] Josafat Packet 1 packet PO BID@0800,1700 11/10/24 [History] Lidocaine 5% Cream 1 applic TOPICAL WE@0800 11/10/24 [History] Losartan [Cozaar] 12.5 mg PO DAILY@0800 11/10/24 [History] Magic Butt Paste 1 applic TOPICAL TID 11/10/24 [History] Magic Cup 1 box PO BID@1200,1700 11/10/24 [History] Magnesium Hydroxide [Milk of Magnesia Concentrate] 7,200 mg PO DAILY PRN 11/10/24 [History] Na Phos,M-B/Na Phos,Di-Ba [Fleet Adult] 133 ml RECTAL DAILY PRN 11/10/24 [History] Nicotine 14Mg/24Hr Patch [Habitrol] 1 patch TRANSDERM DAILY@0800 11/10/24 [History] Pantoprazole [Protonix] 40 mg PO DAILY@0800 11/10/24 [History] Rivaroxaban [Xarelto] 2.5 mg PO BID@0800,1700 11/10/24 [History] bisacodyL [Dulcolax] 10 mg RECTAL DAILY PRN 11/10/24 [History] HYDROcodone/APAP 5-325MG [Beulah 5-325] 1 each PO Q4HR PRN #18 tab 11/16/24 [Rx] Metoprolol Succinate (ER) [Toprol XL] 25 mg PO DAILY #30 tab 11/16/24 [Rx] Follow up Appointment(s)/Referral(s): Sudheer Lubin MD [Primary Care Provider] - 1-2 days Halina Grimes DO [STAFF PHYSICIAN] - 2 Weeks Carmen Melgar [NON-STAFF] - As Needed Activity/Diet/Wound Care/Special Instructions: Activity as tolerated per recommendations from physical therapy Patient may shower but no tub bathing until cleared by surgeon Daily dressing change as needed to right hihds-xgd-ighx amputation with Adaptic, Kerlix and reapply stump claims coordinator and rigid dressing Davison and Filippis following for stump claims coordinator and rigid dressing/prostatic Monitor surgical site for signs of infection including redness, swelling, drainage, fever greater than 100.4. Call surgeons office with any concerns. Discharge Disposition: TRANSFER TO SNF/ECF
[2024-11-16 12:13] LABS: Glucose,Whole Blood 108 mg/dL (70-110)
--- NOTE | 2024-11-16 13:13 | P.PN ---
Subjective Progress Note Date: 11/16/24 HISTORY OF PRESENT ILLNESS: This is a 74-year-old male with a past medical history significant for diabetes and peripheral arterial disease. Patient follows in the office with Dr. Munroe. We have been asked to see the patient in consultation for cardiac clearance for right AKA. Patient examined at the bedside. Patient is admitted to the hospital for worsening infection of right lower extremity. Patient is scheduled to undergo right mhxlo-imf-vqck amputation tomorrow 11/12/2024. Patient currently denies any chest pain or pressure. He denies any shortness of breath. Vital signs are stable. Patient denies any known history of coronary artery disease. He denies undergoing any previous cardiac catheterization or stenting. DIAGNOSTICS: - EKG reveals sinus mechanism with no signs of acute ischemia. - Laboratory data: WBC 7.9. Hemoglobin 12.7. Platelet count 284. Sodium 134. Potassium 4.0. BUN 12. Creatinine 0.58. Recent lipid panel reveals cholesterol 128. LDL 83. HDL 26. Hemoglobin A1c 8.9. - Current home cardiac medications include aspirin 81 mg daily, atorvastatin 40 mg daily, Farxiga 10 mg daily, losartan 12.5 mg daily, Xarelto 2.5 mg twice a day - Most recent echocardiogram obtained in September 2024 revealed ejection fraction 55 to 60%, mild tricuspid regurgitation, moderate septal hypertrophy with no LVOT gradient, no obvious regional wall motion abnormalities - Cardiac catheterization history: Patient denies 11/13 Patient seen and examined out on the cardiac stepdown unit. Yesterday, patient underwent right gzukx-fmu-nwba amputation. Blood pressure 143/72, heart rate 97, pulse ox 98% on room air. Repeat blood work reveals WBC 10.7, hemoglobin 10.3. TSH 1.95. Infectious diseases following. Peripheral dose of Xarelto has not been resumed. Patient complains of shooting pain from the right stump. 3/ Patient seen and examined. Yesterday, we had signed off this case but this morning, patient had episodes of what looked to be SVT running up to 170, con verting back to sinus and then back to SVT. Patient was asymptomatic during these episodes. He denies chest pain or chest pressure. He denies palpitations. He denies ever being told he had atrial fibrillation in the past. Blood pressure 138/71, heart rate 88, pulse ox 98% on room air. Repeat blood work reveals hemoglobin 10.4, BUN 9 and creatinine 0.47. Potassium 3.8 and magnesium 1.8. 11/15/2024 Patient examined this morning at the bedside. Patient currently denies chest pain or pressure. He denies shortness of breath. Vital signs are stable. Telemetry reveals sinus mechanism. Peripheral dosing of Xarelto remains on hold. 11/16 Patient seen and examined. He has been transferred off the cardiac stepdown unit is seen today on the [facility] floor. Patient denies any new concerns. He has no shortness of breath, no chest pain no palpitations. He is scheduled for discharge to rehab today. Blood pressure 129/68, heart rate 85, pulse ox 99% on room air. Patient had episode of SVT last evening. PHYSICAL EXAM: VITAL SIGNS: Reviewed. GENERAL: Well-developed in no acute distress. HEENT: Head is normocephalic. Pupils are equal, round. Sclerae anicteric. Mucous membranes of the mouth are moist. Neck supple. No JVD or thyromegaly LUNGS: Respirations even and unlabored. Lungs essentially clear to auscultation bilaterally. HEART: Regular rate and rhythm. S1 and S2 heard. ABDOMEN: Soft. Nondistended. Nontender. EXTREMITIES: Normal range of motion. No clubbing or cyanosis. Dressing to right mqkvb-udr-brld stump. NEUROLOGIC: Awake and alert. Oriented x 3. ASSESSMENT: Paroxysmal SVT Infected nonhealing wound of right foot with osteomyelitis status post right AKA 11/12 Recent great toe amputation secondary to gangrenous infection Peripheral arterial disease with previous revascularization Diabetes, uncontrolled, recent hemoglobin A1c 8.9 Nicotine dependence Frequent alcohol use, patient reports drinking alcohol 3 times a week PLAN: No need to repeat echocardiogram as this was performed in September 2024 Continue current cardiac medications including aspirin, Lipitor, Farxiga, and losartan Increase Toprol to 50 mg daily. Continue peripheral dosing of Xarelto Patient is cleared for discharge from cardiology perspective. Patient may follow-up in the office with Dr. Matias in 2 weeks. Nurse practitioner note has been reviewed by physician. Signing provider agrees with the documented findings, assessment, and plan of care documented by HY[employer]IN[employer]ER as a scribe. Objective - Vital Signs Vital signs: Vital Signs Temp 98.1 F 11/16/24 08:00 Pulse 85 11/16/24 08:00 Resp 16 11/16/24 08:00 BP 129/68 11/16/24 08:00 Pulse Ox 99 11/16/24 08:00 FiO2 Intake & Output 11/15/24 11/16/24 11/16/24 18:59 06:59 18:59 Intake Total 222 2190 Output Total 1100 Balance -878 2190 Intake: Oral 222 2190 Output: Urine 1100 Other: Voiding Method External Catheter Diaper Diaper # Voids 7 - Labs CBC & Chem 7: 11/15/24 05:55 11/15/24 05:55 Labs: Microbiology - Last 24 Hours (Table) 11/10/24 11:44 Blood Culture - Final Blood
--- NOTE | 2024-11-16 13:24 | P.PN ---
Subjective Progress Note Date: 11/15/24 Principal diagnosis: Reason for follow-up is right lower extremity gangrene infection Patient is a 74-year-old male with a past medical history significant for diabetes mellitus GI bleed and did have severe peripheral vascular disease in this patient who did have right big toe gangrene status post amputation and also revascularization of the right lower extremity culture at that time were positive for Enterobacter, patient not been brought back to the hospital conc erning for worsening discoloration of the right foot wound and possible need for amputation.Patient is status post right lwvxf-fgp-edul amputation completed on 11/12/2024 On today's evaluation that is 11/15/2024, patient has been afebrile, patient is breathing comfortably and is currently on room air, patient denies having any significant cough no chest pain, patient denies nausea vomiting or diarrhea and no abdominal pain pain to the right AKA stump is currently controlled. Patient did have white count of 8.3, creatinine 0.45 Objective - Vital Signs Vital signs: Vital Signs Temp 98.4 F 11/15/24 11:47 Pulse 78 11/15/24 11:47 Resp 16 11/15/24 11:47 BP 138/71 11/15/24 11:47 Pulse Ox 100 11/15/24 11:47 FiO2 Intake & Output 11/14/24 11/15/24 11/15/24 18:59 06:59 18:59 Intake Total 240 Output Total 200 1150 350 Balance 40 -1150 -350 Intake: Oral 240 Output: Urine 200 1150 350 Other: Voiding Method External Catheter External Catheter - Exam GENERAL DESCRIPTION: An elderly male lying in bed in no distress RESPIRATORY SYSTEM: Unlabored breathing , decreased breath sounds at bases HEART: S1 S2 regular rate and rhythm , ABDOMEN: Soft , no tenderness EXTREMITIES: Right AKA stump wound is healing no redness left foot with open wound - Labs CBC & Chem 7: 11/15/24 05:55 11/15/24 05:55 Labs: Abnormal Lab Results - Last 24 Hours (Table) 11/15/24 11/15/24 Range/Units 05:55 05:55 RBC 3.46 L (4.30-5.90) m/uL Hgb 10.1 L (13.0-17.5) gm/dL Hct 33.7 L (39.0-53.0) % MCHC 29.9 L (31.0-37.0) g/dL Sodium 133 L (137-145) mmol/L Carbon Dioxide 20 L (22-30) mmol/L Creatinine 0.45 L (0.66-1.25) mg/dL Calcium 8.0 L (8.4-10.2) mg/dL Assessment and Plan (1) Diabetic infection of right foot Current Visit: Yes Status: Acute Code(s): E11.628 - TYPE 2 DIABETES MELLITUS WITH OTHER SKIN COMPLICATIONS; L08.9 - LOCAL INFECTION OF THE SKIN AND SUBCUTANEOUS TISSUE, UNSP SNOMED Code(s): 049268211 (2) Foot osteomyelitis, right Current Visit: Yes Status: Acute Code(s): M86.9 - OSTEOMYELITIS, UNSPECIFIED SNOMED Code(s): 2161132333575515 (3) Right foot infection Current Visit: Yes Status: Acute Code(s): L08.9 - LOCAL INFECTION OF THE SKIN AND SUBCUTANEOUS TISSUE, UNSP SNOMED Code(s): 765543371 (4) Diabetic gangrene Current Visit: No Status: Acute Code(s): E11.52 - TYPE 2 DIABETES W DIABETIC PERIPHERAL ANGIOPATHY W GANGRENE SNOMED Code(s): 373048553 Plan: 1patient was in the hospital with worsening wound to the right foot area in this patient who did have a history of PAD and right big toe gangrene status post right big toe potation on his last admission and also revascularization now with evidence of worsening wound to the right foot with some necrotic changes as well as wound to the right lower extremity concerning for failure of the medical treatment and vascular surgical surgery for right hltwp-bzu-sbqr potation with the patient and the family is seem to be agreeable 2-patient is status post right above-knee amputation within affected part removed and no evidence of any cellulitis, will go ahead and discontinue cefepime and Flagyl and monitor the patient closely off antibiotic Dictation was produced using [employer] dictation software. please excuse any grammatical, word or spelling errors. Time with Patient: Less than 30
--- NOTE | 2024-11-16 13:24 | P.PN ---
Subjective Progress Note Date: 11/16/24 Principal diagnosis: Reason for follow-up is right lower extremity gangrene infection Patient is a 74-year-old male with a past medical history significant for diabetes mellitus GI bleed and did have severe peripheral vascular disease in this patient who did have right big toe gangrene status post amputation and also revascularization of the right lower extremity culture at that time were positive for Enterobacter, patient not been brought back to the hospital conc erning for worsening discoloration of the right foot wound and possible need for amputation.Patient is status post right fwojp-rux-xidm amputation completed on 11/12/2024 On today's evaluation that is 11/16/2024, Patient is afebrile this morning patient denies having any chest pain shortness of breath or cough, the patient is currently on room air, patient denies any abdominal pain no diarrhea no n ausea no vomiting mention feeling better pain is controlled. No new lab Has been repeated today Objective - Vital Signs Vital signs: Vital Signs Temp 98.1 F 11/16/24 08:00 Pulse 85 11/16/24 08:00 Resp 16 11/16/24 08:00 BP 129/68 11/16/24 08:00 Pulse Ox 99 11/16/24 08:00 FiO2 Intake & Output 11/15/24 11/16/24 11/16/24 18:59 06:59 18:59 Intake Total 222 2190 Output Total 1100 Balance -878 2190 Intake: Oral 222 2190 Output: Urine 1100 Other: Voiding Method External Catheter Diaper Diaper # Voids 7 - Exam GENERAL DESCRIPTION: An elderly male lying in bed in no distress RESPIRATORY SYSTEM: Unlabored breathing , decreased breath sounds at bases HEART: S1 S2 regular rate and rhythm , ABDOMEN: Soft , no tenderness EXTREMITIES: Right AKA stump wound is dressed - Labs CBC & Chem 7: 11/15/24 05:55 11/15/24 05:55 Labs: Microbiology - Last 24 Hours (Table) 11/10/24 11:44 Blood Culture - Final Blood Assessment and Plan (1) Diabetic infection of right foot Current Visit: Yes Status: Acute Code(s): E11.628 - TYPE 2 DIABETES MELLITUS WITH OTHER SKIN COMPLICATIONS; L08.9 - LOCAL INFECTION OF THE SKIN AND SUBCUTANEOUS TISSUE, UNSP SNOMED Code(s): 035680857 (2) Foot osteomyelitis, right Current Visit: Yes Status: Acute Code(s): M86.9 - OSTEOMYELITIS, UNSPECIFIED SNOMED Code(s): 0701752103462129 (3) Right foot infection Current Visit: Yes Status: Acute Code(s): L08.9 - LOCAL INFECTION OF THE SKIN AND SUBCUTANEOUS TISSUE, UNSP SNOMED Code(s): 152606020 (4) Diabetic gangrene Current Visit: No Status: Acute Code(s): E11.52 - TYPE 2 DIABETES W DIABETIC PERIPHERAL ANGIOPATHY W GANGRENE SNOMED Code(s): 260770912 Plan: 1patient was in the hospital with worsening wound to the right foot area in this patient who did have a history of PAD and right big toe gangrene status post right big toe potation on his last admission and also revascularization now with evidence of worsening wound to the right foot with some necrotic changes as well as wound to the right lower extremity concerning for failure of the medical treatment and vascular surgical surgery for right ujiws-mdl-hlvr potation with the patient and the family is seem to be agreeable 2-patient is status post right above-knee amputation within affected part removed and no evidence of any cellulitis, antibiotics were discontinued yesterday patient seems to be doing well off antibiotic no need for antibiotic on discharge discussed with the admitting physician working on discharge Dictation was produced using [employer] dictation software. please excuse any grammatical, word or spelling errors.
[2024-11-16 14:10] VITALS: BP 121/66; PULSE 58; RESP 17; TEMP 98.4
== END 2024-11-16 14:55 | DRG 857 ==
LOC: EC 11:06 → 4SSUR 13:21 → 3SCARD 11-12 11:10 → 4SSUR 11-15 18:43
PROVIDERS: ADMIT Internal Medicine; ATTEND Internal Medicine
PROC: 0Y6C0Z3 Detachment at Right Upper Leg, Low, Open Approach (ICD-10-PCS; principal; 2024-11-12 10:00)
DX: T81.49XA Infection following a procedure, other surgical site, initial encounter (principal); E11.52 Type 2 diabetes mellitus with diabetic peripheral angiopathy with gangrene; I47.19 Other supraventricular tachycardia; B96.1 Klebsiella pneumoniae [K. pneumoniae] as the cause of diseases classified elsewhere; L03.115 Cellulitis of right lower limb; B96.89 Other specified bacterial agents as the cause of diseases classified elsewhere; I10 Essential (primary) hypertension; M86.8X7 Other osteomyelitis, ankle and foot; E11.621 Type 2 diabetes mellitus with foot ulcer; E11.628 Type 2 diabetes mellitus with other skin complications; E11.69 Type 2 diabetes mellitus with other specified complication; L97.519 Non-pressure chronic ulcer of other part of right foot with unspecified severity; F17.210 Nicotine dependence, cigarettes, uncomplicated; I25.10 Atherosclerotic heart disease of native coronary artery without angina pectoris; H91.90 Unspecified hearing loss, unspecified ear; Z79.01 Long term (current) use of anticoagulants; Z79.82 Long term (current) use of aspirin; Z79.84 Long term (current) use of oral hypoglycemic drugs; Z79.899 Other long term (current) drug therapy; Y84.8 Other medical procedures as the cause of abnormal reaction of the patient, or of later complication, without mention of misadventure at the time of the procedure
CPT/HCPCS: 36415; 80048; 80053; 80202; 83036; 83735; 84443; 85025; 85027; 85610; 85730; 86140; 86850; 86900; 86901; 87040; 87070; 87077; 87186; 87205; 96365; 96366; 96368; 99285

== ENCOUNTER 2024-11-26 14:23 | Inpatient (IN) | payer MEDICARE ==
--- NOTE | 2024-11-26 15:07 | ED ---
General Adult HPI - General Chief complaint: Altered Mental Status Stated complaint: ams Time Seen by Provider: 11/26/24 14:29 Source: patient, EMS, RN notes reviewed Mode of arrival: EMS Limitations: no limitations - History of Present Illness Initial comments: Patient is a 74-year-old male presenting to the emergency department from nursing facility with concern for decreased mental status. Patient states he feels fine and has no complaints. Nursing staff had concerns for fever, low blood pressure and low oxygen. EMS found blood pressure and oxygen levels to be normal. Patient is a poor historian and does not provide further history. Patient did have recent right AKA done last month. - Related Data Home Medications Medication Instructions Recorded Confirmed Acetaminophen [Tylenol Arthritis] 650 mg PO Q6H PRN 11/10/24 11/10/24 Aspirin 81 mg PO DAILY@0800 11/10/24 11/10/24 Atorvastatin [Lipitor] 40 mg PO DAILY@0800 11/10/24 11/10/24 Dapagliflozin Propanediol [Farxiga] 10 mg PO DAILY@0800 11/10/24 11/10/24 INSULIN LISPRO (humaLOG) [humaLOG] See Protocol SQ AC-TID@07,11,1630 11/10/24 11/10/24 Insulin Glargine,Hum.rec.anlog 24 units SQ HS@2130 11/10/24 11/10/24 [Lantus Solostar Pen] Josafat Packet 1 packet PO BID@0800,1700 11/10/24 11/10/24 Lidocaine 5% Cream 1 applic TOPICAL WE@0800 11/10/24 11/10/24 Losartan [Cozaar] 12.5 mg PO DAILY@0800 11/10/24 11/10/24 Magic Butt Paste 1 applic TOPICAL TID 11/10/24 11/10/24 Magic Cup 1 box PO BID@1200,1700 11/10/24 11/10/24 Magnesium Hydroxide [Milk of 7,200 mg PO DAILY PRN 11/10/24 11/10/24 Magnesia Concentrate] Na Phos,M-B/Na Phos,Di-Ba [Fleet 133 ml RECTAL DAILY PRN 11/10/24 11/10/24 Adult] Nicotine 14Mg/24Hr Patch [Habitrol] 1 patch TRANSDERM DAILY@0800 11/10/24 11/10/24 Pantoprazole [Protonix] 40 mg PO DAILY@0800 11/10/24 11/10/24 Rivaroxaban [Xarelto] 2.5 mg PO BID@0800,1700 11/10/24 11/10/24 bisacodyL [Dulcolax] 10 mg RECTAL DAILY PRN 11/10/24 11/10/24 Previous Rx's Medication Instructions Recorded HYDROcodone/APAP 5-325MG [[place] 1 each PO Q4HR PRN #18 tab 11/16/24 5-325] Metoprolol Succinate (ER) [Toprol 50 mg PO DAILY #30 tab 11/16/24 Xl] Allergies Allergy/AdvReac Type Severity Reaction Status Date / Time No Known Allergies Allergy Verified 11/10/24 13:57 Review of Systems ROS Statement: Those systems with pertinent positive or pertinent negative responses have been documented in the HPI. ROS Other: All systems not noted in ROS Statement are negative. Limitations: ROS unobtainable due to patients medical condition Constitutional: Reports: fever Endocrine: Reports: fatigue Neurological: Reports: confusion Past Medical History Past Medical History: Diabetes Mellitus, GI Bleed, Hearing Disorder / Deafness Additional Past Medical History / Comment(s): unhealing 2 wounds left foot -from rubbing on medical boot, HX of Diverticultis. Type IIDiabetic. OHKAY OWINGEH. Perforated u lcer. History of Any Multi-Drug Resistant Organisms: None Reported Past Surgical History: Hernia Repair Additional Past Surgical History / Comment(s): Hernia at age 3. Stomach surgery. Colonoscopy,amputation 2nd digit left foot. Recent amputation of the 5th digit foot -May 2024. above knee amputation Past Anesthesia/Blood Transfusion Reactions: No Reported Reaction Additional Past Anesthesia/Blood Transfusion Reaction / Comment(s): no hx blood transfusion Past Psychological History: No Psychological Hx Reported Smoking Status: Current every day smoker Past Alcohol Use History: Occasional Past Drug Use History: None Reported - Past Family History Sister(s) Family Medical History: Cancer Additional Family Medical History / Comment(s): Breast cancer General Exam Limitations: no limitations General appearance: alert, in no apparent distress Head exam: Present: atraumatic, normocephalic Eye exam: Present: normal appearance, PERRL ENT exam: Present: mucous membranes dry Neck exam: Present: normal inspection. Absent: tenderness, meningismus Respiratory exam: Present: normal lung sounds bilaterally Cardiovascular Exam: Present: tachycardia GI/Abdominal exam: Present: soft. Absent: tenderness Extremities exam: Present: other (Right AKA.) Neurological exam: Present: alert. Absent: motor sensory deficit Psychiatric exam: Present: normal affect, normal mood Skin exam: Present: other (Right AKA incision clean dry and intact. No foot wound on the left. Patient does have sacral ulcer approximately 2 to 3 cm, stage II.) Course Vital Signs 11/26/24 11/26/24 11/26/24 14:35 15:40 16:00 Temperature 100.0 F H Pulse Rate 120 H 122 H 120 H Respiratory 14 20 20 Rate Blood Pressure 114/73 100/60 98/58 O2 Sat by Pulse 95 98 96 Oximetry 11/26/24 11/26/24 16:49 17:36 Temperature 98.9 F 98.9 F Pulse Rate 102 H 100 Respiratory 20 20 Rate Blood Pressure 91/55 100/65 O2 Sat by Pulse 96 94 L Oximetry EKG Findings - EKG Results: EKG: interpreted by LEONELA (Prescribed AV block with a MA of 210. Borderline lateral ST depression.), sinus rhythm, normal axis, normal QRS EKG shows: tachycardia Medical Decision Making - Medical Decision Making Was pt. sent in by a medical professional or institution (GARRETT Cunningham, GRAVITY PROSPECTING OPERATOR, urgent care, hospital, or retirement...) When possible be specific @ -Patient sent from nursing facility Did you speak to anyone other than the patient for history (EMS, parent, family, police, friend...)? What history was obtained from this source @ -No Did you review nursing and triage notes (agree or disagree)? Why? @ -I reviewed and agree with nursing and triage notes Were old charts reviewed (outside hosp., previous admission, EMS record, old EKG, old radiological studies, urgent care reports/EKG's, retirement records)? Report findings @ -Previous admission reviewed Differential Diagnosis (chest pain, altered mental status, abdominal pain women, abdominal pain men, vaginal bleeding, weakness, fever, dyspnea, syncope, headache, dizziness, GI bleed, back pain, seizure, CVA, palpatations, mental health, musculoskeletal)? @ -Differential Weakness: Hypoglycemia, shock, sepsis, hyponatremia, anemia, infection, NJ, ETOH, adverse medicine reaction, overdose, stroke, this is not meant to be an all-inclusive list. EKG interpreted by me (3pts min.). @ -As above X-rays interpreted by me (1pt min.). @ -Chest x-ray shows bilateral infiltrates CT interpreted by me (1pt min.). @ -CT scan brain without acute abnormality U/S interpreted by me (1pt. min.). @ -None done What testing was considered but not performed or refused? (CT, X-rays, U/S, labs)? Why? @ -None What meds were considered but not given or refused? Why? @ -None Did you discuss the management of the patient with other professionals (professionals i.e. , PA, GRAVITY PROSPECTING OPERATOR, lab, RT, psych nurse, social media coordinator, driver, teacher, information management officer, caseworker)? Give summary @ -Case was discussed with practitioner Marcela who will admit covering Dr. Lubin Was smoking cessation discussed for >3mins.? @ -No Was critical care preformed (if so, how long)? @ -31 minutes critical care time Were there social determinants of health that impacted care today? How? (Homelessness, low income, unemployed, alcoholism, drug addiction, transportation, low edu. Level, literacy, decrease access to med. care, [facility], re hab)? @ -No Was there de-escalation of care discussed even if they declined (Discuss DNR or withdrawal of care, Hospice)? DNR status @ -No What co-morbidities impacted this encounter? (DM, HTN, Smoking, COPD, CAD, Cancer, CVA, ARF, Chemo, Hep., AIDS, mental health diagnosis, sleep apnea, morbid obesity)? @ -None Was patient admitted / discharged? Hospital course, mention meds given and route, prescriptions, significant lab abnormalities, going to OR and other pertinent info. @ -Patient presents with decreased mental status and general weakness. Chest x-ray concerning for pneumonia. There is concern for sepsis diagnosed at 1725. Blood culture and lactic acid and IV antibiotics have all been ordered. Patient reevaluated and updated. Admission orders written. Undiagnosed new problem with uncertain prognosis? @ -No Drug Therapy requiring intensive monitoring for toxicity (Heparin, Nitro, Insulin, Cardizem)? @ -No Were any procedures done? @ -No Diagnosis/symptom? @ -Pneumonia, sepsis Acute, or Chronic, or Acute on Chronic? @ -Acute, acute Uncomplicated (without systemic symptoms) or Complicated (systemic symptoms)? @ -Complicated with sepsis Side effects of treatment? @ -No Exacerbation, Progression, or Severe Exacerbation? @ -No Poses a threat to life or bodily function? How? (Chest pain, [place], NJ, pneumonia, PE, COPD, DKA, ARF, appy, cholecystitis, CVA, Diverticulitis, Homicidal, Suicidal, threat to staff... and all critical care pts) @ -Threat to multiorgan dysfunction - Lab Data Result diagrams: 11/26/24 15:02 11/26/24 15:02 Lab Results 11/26/24 11/26/24 11/26/24 Range/Units 15:02 15:02 15:02 WBC 13.1 H (3.8-10.6) k/uL RBC 4.67 (4.30-5.90) m/uL Hgb 13.8 D (13.0-17.5) gm/dL Hct 45.3 (39.0-53.0) % MCV 97.0 (80.0-100.0) fL MCH 29.5 (25.0-35.0) pg MCHC 30.5 L (31.0-37.0) g/dL RDW 13.7 (11.5-15.5) % Plt Count 353 (150-450) k/uL MPV 9.8 Neutrophils % 87 % Lymphocytes % 7 % Monocytes % 5 % Eosinophils % 1 % Basophils % 0 % Neutrophils # 11.3 H (1.3-7.7) k/uL Lymphocytes # 0.9 L (1.0-4.8) k/uL Monocytes # 0.6 (0-1.0) k/uL Eosinophils # 0.1 (0-0.7) k/uL Basophils # 0.0 (0-0.2) k/uL Hypochromasia Marked PT 15.1 H (10.0-12.5) sec INR 1.4 H (<1.2) APTT 25.2 (22.0-30.0) sec Sodium 148 H (137-145) mmol/L Potassium 4.1 (3.5-5.1) mmol/L Chloride 108 H (98-107) mmol/L Carbon Dioxide 29 (22-30) mmol/L Anion Gap 11 mmol/L BUN 29 H (9-20) mg/dL Creatinine 0.63 L (0.66-1.25) mg/dL Est GFR (CKD-EPI)AfAm >90 (>60 ml/min/1.73 sqM) Est GFR (CKD-EPI)NonAf >90 (>60 ml/min/1.73 sqM) Glucose 184 H (74-99) mg/dL Lactic Ac Sepsis Rflx Plasma Lactic Acid Usama (0.7-2.0) mmol/L Calcium 9.2 (8.4-10.2) mg/dL Total Bilirubin 0.9 (0.2-1.3) mg/dL AST 27 (17-59) U/L ALT 16 (4-49) U/L Alkaline Phosphatase 261 H (38-126) U/L Troponin I (0.000-0.034) ng/mL Total Protein 7.4 (6.3-8.2) g/dL Albumin 3.3 L (3.5-5.0) g/dL Urine Color Urine Appearance (Clear) Urine pH (5.0-8.0) Ur Specific Jenkins (1.001-1.035) Urine Protein (Negative) Urine Glucose (UA) (Negative) Urine Ketones (Negative) Urine Blood (Negative) Urine Nitrite (Negative) Urine Bilirubin (Negative) Urine Urobilinogen (<2.0) mg/dL Ur Leukocyte Esterase (Negative) Influenza Type A (PCR) (Not Detectd) Influenza Type B (PCR) (Not Detectd) RSV (PCR) (Not Detectd) SARS-CoV-2 (PCR) (Not Detectd) 11/26/24 11/26/24 11/26/24 Range/Units 15:02 15:03 15:07 WBC (3.8-10.6) k/uL RBC (4.30-5.90) m/uL Hgb (13.0-17.5) gm/dL Hct (39.0-53.0) % MCV (80.0-100.0) fL MCH (25.0-35.0) pg MCHC (31.0-37.0) g/dL RDW (11.5-15.5) % Plt Count (150-450) k/uL MPV Neutrophils % % Lymphocytes % % Monocytes % % Eosinophils % % Basophils % % Neutrophils # (1.3-7.7) k/uL Lymphocytes # (1.0-4.8) k/uL Monocytes # (0-1.0) k/uL Eosinophils # (0-0.7) k/uL Basophils # (0-0.2) k/uL Hypochromasia PT (10.0-12.5) sec INR (<1.2) APTT (22.0-30.0) sec Sodium (137-145) mmol/L Potassium (3.5-5.1) mmol/L Chloride (98-107) mmol/L Carbon Dioxide (22-30) mmol/L Anion Gap mmol/L BUN (9-20) mg/dL Creatinine (0.66-1.25) mg/dL Est GFR (CKD-EPI)AfAm (>60 ml/min/1.73 sqM) Est GFR (CKD-EPI)NonAf (>60 ml/min/1.73 sqM) Glucose (74-99) mg/dL Lactic Ac Sepsis Rflx Plasma Lactic Acid Usama 3.6 H* (0.7-2.0) mmol/L Calcium (8.4-10.2) mg/dL Total Bilirubin (0.2-1.3) mg/dL AST (17-59) U/L ALT (4-49) U/L Alkaline Phosphatase (38-126) U/L Troponin I <0.012 (0.000-0.034) ng/mL Total Protein (6.3-8.2) g/dL Albumin (3.5-5.0) g/dL Urine Color Urine Appearance (Clear) Urine pH (5.0-8.0) Ur Specific [place] (1.001-1.035) Urine Protein (Negative) Urine Glucose (UA) (Negative) Urine Ketones (Negative) Urine Blood (Negative) Urine Nitrite (Negative) Urine Bilirubin (Negative) Urine Urobilinogen (<2.0) mg/dL Ur Leukocyte Esterase (Negative) Influenza Type A (PCR) Not Detected (Not Detectd) Influenza Type B (PCR) Not Detected (Not Detectd) RSV (PCR) Not Detected (Not Detectd) SARS-CoV-2 (PCR) Not Detected (Not Detectd) 11/26/24 11/26/24 Range/Units 16:05 16:25 WBC (3.8-10.6) k/uL RBC (4.30-5.90) m/uL Hgb (13.0-17.5) gm/dL Hct (39.0-53.0) % MCV (80.0-100.0) fL MCH (25.0-35.0) pg MCHC (31.0-37.0) g/dL RDW (11.5-15.5) % Plt Count (150-450) k/uL MPV Neutrophils % % Lymphocytes % % Monocytes % % Eosinophils % % Basophils % % Neutrophils # (1.3-7.7) k/uL Lymphocytes # (1.0-4.8) k/uL Monocytes # (0-1.0) k/uL Eosinophils # (0-0.7) k/uL Basophils # (0-0.2) k/uL Hypochromasia PT (10.0-12.5) sec INR (<1.2) APTT (22.0-30.0) sec Sodium (137-145) mmol/L Potassium (3.5-5.1) mmol/L Chloride (98-107) mmol/L Carbon Dioxide (22-30) mmol/L Anion Gap mmol/L BUN (9-20) mg/dL Creatinine (0.66-1.25) mg/dL Est GFR (CKD-EPI)AfAm (>60 ml/min/1.73 sqM) Est GFR (CKD-EPI)NonAf (>60 ml/min/1.73 sqM) Glucose (74-99) mg/dL Lactic Ac Sepsis Rflx Y Plasma Lactic Acid Usama (0.7-2.0) mmol/L Calcium (8.4-10.2) mg/dL Total Bilirubin (0.2-1.3) mg/dL AST (17-59) U/L ALT (4-49) U/L Alkaline Phosphatase (38-126) U/L Troponin I (0.000-0.034) ng/mL Total Protein (6.3-8.2) g/dL Albumin (3.5-5.0) g/dL Urine Color Yellow Urine Appearance Clear (Clear) Urine pH 5.5 (5.0-8.0) Ur Specific [place] 1.046 H (1.001-1.035) Urine Protein Trace H (Negative) Urine Glucose (UA) 4+ H (Negative) Urine Ketones 1+ H (Negative) Urine Blood Negative (Negative) Urine Nitrite Negative (Negative) Urine Bilirubin Negative (Negative) Urine Urobilinogen <2.0 (<2.0) mg/dL Ur Leukocyte Esterase Negative (Negative) Influenza Type A (PCR) (Not Detectd) Influenza Type B (PCR) (Not Detectd) RSV (PCR) (Not Detectd) SARS-CoV-2 (PCR) (Not Detectd) Disposition Clinical Impression: Pneumonia, Sepsis Disposition: ADMITTED IP TO THIS HOSP Condition: Serious Is patient prescribed a controlled substance at d/c from ED?: No Referrals: Sudheer Lubin MD [Primary Care Provider] - 1-2 days Time of Disposition: 18:51
[2024-11-26] MEDS: ACETAMINOPHEN TAB 325 MG TAB PO STA (15:22)
[2024-11-26 15:40] LABS: INR 1.4 (<1.2); Partial Thromboplastin Time 25.2 sec (22.0-30.0); Prothrombin Time 15.1 sec (10.0-12.5)
[2024-11-26 15:50] LABS: ALT 16 U/L (4-49); AST 27 U/L (17-59); African American GFR (CKD) >90 (>60 ml/min/1.73 sqM); Albumin 3.3 g/dL (3.5-5.0); Alkaline Phosphatase 261 U/L (38-126); Anion Gap 11 mmol/L; Blood Urea Nitrogen 29 mg/dL (9-20); Calcium 9.2 mg/dL (8.4-10.2); Carbon Dioxide 29 mmol/L (22-30); Chloride 108 mmol/L (98-107); Glucose 184 mg/dL (74-99); Non-African American GFR(CKD) >90 (>60 ml/min/1.73 sqM); Potassium 4.1 mmol/L (3.5-5.1); Sodium 148 mmol/L (137-145); Total Bilirubin 0.9 mg/dL (0.2-1.3); Total Protein 7.4 g/dL (6.3-8.2)
--- NOTE | 2024-11-26 16:00 | XR ---
EXAMINATION TYPE: XR chest 2V DATE OF EXAM: 11/26/2024 3:45 PM COMPARISON: Chest radiographs from 09/28/2024 CLINICAL INDICATION: Male, 74 years old with history of Fever; TECHNIQUE: XR chest 2V Frontal and lateral views of the chest. FINDINGS: Lungs/Pleura: Multifocal airspace opacities. No evidence of pneumothorax or pleural effusion. Pulmonary vascularity: Unremarkable. Heart/mediastinum: Cardiomediastinal silhouette is unremarkable. Musculoskeletal: No acute osseous pathology. IMPRESSION: Bibasilar airspace opacities correlate for pneumonia [facility], , 11/26/2024 3:57 PM
[2024-11-26 16:01] LABS: Basophils % (A) 0 %; Eosinophils # (A) 0.1 k/uL (0-0.7); Eosinophils % (A) 1 %; HCT 45.3 % (39.0-53.0); Hypochromasia Marked; Lymphocytes # (A) 0.9 k/uL (1.0-4.8); Lymphocytes % (A) 7 %; MCH 29.5 pg (25.0-35.0); MCHC 30.5 g/dL (31.0-37.0); Mean Platelet Volume 9.8; Monocytes # (A) 0.6 k/uL (0-1.0); Monocytes % (A) 5 %; Neutrophils # (A) 11.3 k/uL (1.3-7.7); Neutrophils % (A) 87 %; Platelet Count 353 k/uL (150-450); RBC 4.67 m/uL (4.30-5.90); RDW 13.7 % (11.5-15.5); WBC 13.1 k/uL (3.8-10.6)
[2024-11-26 16:03] LABS: Influenza A Not Detected (Not Detectd); Influenza B Not Detected (Not Detectd); RSV Not Detected (Not Detectd)
--- NOTE | 2024-11-26 16:03 | CT ---
EXAMINATION TYPE: CT brain wo con CT DLP: 1196.4 mGycm, Automated exposure control for dose reduction was used. DATE OF EXAM: 11/26/2024 3:56 PM COMPARISON: CT brain 09/19/2024, CT brain C-spine 08/20/2024 CLINICAL INDICATION:Male, 74 years old with history of ams, AMS TECHNIQUE: Brain: Multiple axial CT images of the brain were obtained without IV contrast. . Coronal and sagitta l reformats reviewed. FINDINGS: Brain: Extra-axial spaces: No abnormal extra-axial fluid collections. Calcification of the falx. Ventricular system: Within normal limits Cerebral parenchyma: Cerebral atrophy. No acute intraparenchymal hemorrhage or mass effect. The munoz -white junction is well differentiated. Confluent hypoattenuating areas are seen within the periventr icular and subcortical white matter. Stable hypodense focus within the left basal ganglia. Cerebellum: Unremarkable. Mass effect: No evidence of midline shift. Intracranial vasculature: Atherosclerotic calcifications of the intracranial vessels. Soft tissues: Normal. Calvarium/osseous structures: No depressed skull fracture. Paranasal sinuses and mastoid air cells: Clear Visualized orbits: Bilateral aphakia IMPRESSION: 1. No acute intracranial process. 2. Remote left basal ganglial lacunar injury along with advanced nonspecific white matter changes lik jerry secondary to chronic microangiopathy. [facility], , 11/26/2024 4:00 PM
[2024-11-26 16:09] LABS: HGB 13.8 gm/dL (13.0-17.5)
[2024-11-26 16:45] LABS: Appearance,Urine Clear (Clear); Bilirubin,Urine Negative (Negative); Blood,Urine Negative (Negative); Color,Urine Yellow; Glucose,Urine (UA) 4+ (Negative); Ketones,Urine 1+ (Negative); Leukocyte Esterase,Urine Negative (Negative); Nitrite,Urine Negative (Negative); PH, Urine 5.5 (5.0-8.0); Protein,Urine Trace (Negative); Urobilinogen,Urine <2.0 mg/dL (<2.0)
[2024-11-26 16:54] LABS: Specific Gravity,Urine 1.046 (1.001-1.035)
[2024-11-26] MEDS: LACTATED RINGERS 1,000 ML IV SCH (17:34)
[2024-11-26] MEDS ORDERED: PNEUMONIA PROTOCOL UTILIZED 1 EACH MISC PO PRN (18:51)
[2024-11-26] MEDS: AZITHROMYCIN 500 MG in SODIUM CHLORIDE 0.9% 250 ML IVPB STA (19:01)
[2024-11-26] MEDS ORDERED: IPRATROPIUM-ALBUTEROL 3 ML NEB INHALATION PRN (20:48)
[2024-11-26] MEDS ORDERED: MAGNESIUM HYDROXIDE 2,400 MG/30 ML CUP PO PRN (20:48)
[2024-11-26] MEDS ORDERED: bisacodyL 10 MG SUPP RECTAL PRN (20:48)
[2024-11-26] MEDS ORDERED: NON FORMULARY DRUG (Acetaminophen [Tylenol Arthritis] 650 MG Tablet) PO PRN (20:48)
[2024-11-26] MEDS ORDERED: NA PHOS,M-B/NA PHOS,DI-BA 133 ML ENEMA RECTAL PRN (20:48)
[2024-11-26] MEDS: INSULIN GLARGINE (LANTUS) 100 UNIT/ML SYR SQ SCH (21:42)
[2024-11-26] MEDS: MIRTAZAPINE 15 MG TAB PO SCH (21:43)
[2024-11-27 06:12] LABS: Glucose,Whole Blood 95 mg/dL (70-110)
[2024-11-27] MEDS: PANTOPRAZOLE 40 MG TABLET PO SCH (06:45)
--- NOTE | 2024-11-27 09:04 | XR ---
EXAMINATION TYPE: XR chest 2V DATE OF EXAM: 11/27/2024 8:53 AM COMPARISON: Chest radiographs from 11/26/2024 TECHNIQUE: XR chest 2V Frontal and lateral views of the chest. CLINICAL INDICATION:Male, 74 years old with history of pneumonia; FINDINGS: Lungs/Pleura: No pleural effusion or pneumothorax. Similar bibasilar patchy airspace opacities. Pulmonary vascularity: Unremarkable. Heart/mediastinum: Cardiomediastinal silhouette is unremarkable. Musculoskeletal: Multiple level degenerative disc disease changes seen throughout the spine. IMPRESSION: Similar bibasilar patchy airspace opacities concerning for pneumonia. [facility], , 11/27/2024 9:02 AM
[2024-11-27] MEDS: guaiFENesin 600 MG TABLET.ER PO SCH (09:11)
[2024-11-27] MEDS: DAPAGLIFLOZIN PROPANEDIOL 10 MG TABLET PO SCH (09:11)
[2024-11-27] MEDS: LOSARTAN 25 MG TAB PO SCH (09:11)
[2024-11-27] MEDS: ATORVASTATIN 40 MG TAB PO SCH (09:11)
[2024-11-27] MEDS: ASPIRIN 81 MG PO SCH (09:11)
[2024-11-27] MEDS: NICOTINE 14MG/24HR PATCH TRANSDERM SCH (09:12)
[2024-11-27] MEDS: METOPROLOL SUCCINATE (ER) 50 MG TAB.ER.24H PO SCH (09:12)
[2024-11-27] MEDS: AZITHROMYCIN 500 MG TAB PO SCH (10:49)
[2024-11-27 11:34] LABS: Glucose,Whole Blood 334 mg/dL (70-110)
[2024-11-27] MEDS ORDERED: VANCOMYCIN IV PER PHARMACY 1 EACH MISC MISCELLANE PRN (11:37)
[2024-11-27 11:38] LABS: HCT 34.8 % (39.0-53.0); Hypochromasia Marked; MCH 28.8 pg (25.0-35.0); MCHC 29.6 g/dL (31.0-37.0); MCV 97.2 fL (80.0-100.0); Mean Platelet Volume 9.4; Platelet Count 289 k/uL (150-450); RBC 3.58 m/uL (4.30-5.90); RDW 13.8 % (11.5-15.5); WBC 11.3 k/uL (3.8-10.6)
[2024-11-27 11:45] LABS: African American GFR (CKD) >90 (>60 ml/min/1.73 sqM); Anion Gap 6 mmol/L; Blood Urea Nitrogen 24 mg/dL (9-20); Calcium 8.6 mg/dL (8.4-10.2); Carbon Dioxide 30 mmol/L (22-30); Chloride 109 mmol/L (98-107); Glucose 79 mg/dL (74-99); Non-African American GFR(CKD) >90 (>60 ml/min/1.73 sqM); Potassium 3.5 mmol/L (3.5-5.1); Sodium 145 mmol/L (137-145)
--- NOTE | 2024-11-27 11:46 | P.HPIM ---
History of Present Illness H&P Date: 11/27/24 Chief Complaint: Bilateral aspiration pneumonia HISTORY OF PRESENT ILLNESS: This is a 74-year-old male with a previous medical history significant for hypertension and hypertensive Vascular disease, mixed hyperlipidemia, diabetes mellitus type 2, with diabetic polyneuropathy, history of severe peripheral artery occlusive disease, status post revascularization of the right tibial vessel because of a nonhealing right great toe osteomyelitis, he ended up going for right great toe amputation in the past, because of nonhealing he was gone for right above-knee amputation that was done by Dr. June on 11/12/2024 and the patient was sent back to [facility] for physical therapy rehabilitation, while he was at [facility] yesterday patient apparently has some trouble swallowing the food, apparently had choked on his food, he had an episode of increased shortness of breath, he woke up in the morning with increased shortness of breath, with oxygenation dropped to 78%, chest x-ray showed evidence of bibasilar infiltrates, he was sent to the ER for evaluation, he was found to hav e bibasilar infiltrate likely aspiration pneumonia likely gram-negative pneumonia, patient initially was started on Zithromax Rocephin that was taken off, he was placed on Zosyn I will add vancomycin with pharmacy to dose the peak and trough, sputum culture will be obtained, pulmonary consultation was obtained, continue with DuoNeb 3 mL nebulization 4 times every day, follow-up with the patient very closely, patient continues to have trev in the right above-knee amputation REVIEW OF SYSTEMS: Constitutional: No documented fever, no chills, no night sweats. No weight change. No weakness, fatigue or lethargy. No daytime sleepiness. EENT: No headache. No blurred vision or double vision, no loss of vision. No loss of Hearing, no ringing in the ears, no dizziness. No nasal drainage or congestion. No epistaxis. No sore throat. Lungs: positive for shortness of breath, occasional cough, minimal sputum production. No wheezing. Reports dyspnea with activity. Cardiovascular: No chest pain, no lower extremity edema. No palpitations. No paroxysmal nocturnal dyspnea. No orthopnea. No lightheadedness or dizziness. No syncopal episodes. Abdominal: Reports abdominal pain. No nausea, vomiting. No diarrhea. No constipation. No bloody or tarry stools reports loss of appetite. Genitourinary: No dysuria, increased frequency, urgency. No urinary retention. Musculoskeletal: No myalgias. positive for muscle weakness, positive for gait dysfunction, no frequent falls. No back pain. No neck pain. Integumentary: Right above-knee amputation wound with trev in place, no le sions. No rash or pruritus. No unusual bruising. No change in hair or nails. Neurologic: No aphasia. No facial droop. No change in mentation. No head injury. No headache. No paralysis. No paresthesia. Psychiatric: positive for depression. No anxiety. No mood swings. Endocrine: positive for abnormal blood sugars. No weight change. PAST MEDICAL HISTORY: Hypertension and hypertensive vascular disease. Mixed hyperlipidemia. Diabetes mellitus type 2. Peripheral artery disease. Chronic tobacco use and dependence. COPD. depression poor appetite. Weight loss. PAST SURGICAL HISTORY: Right great toe amputation. Left second and fifth toe amputation. Right above-knee amputation. Colonoscopy SOCIAL HISTORY: Patient smokes about 1-1/2 pack on a daily basis, he has been smoking for many years, he used to drink alcohol quite a bit, he denies any drug use or abuse. FAMILY HISTORY: Patient does not know much about his father his mother in her 90s with diabetes complication, patient has no brother, he had 4 sisters 2 of them the other 1 does not know much about, patient had 8 kids 3 daughters one of them with diabetes and hypertension and the other 1 with gestational diabetes and hypertension, patient has 4 sons they all live in [place] PHYSICAL EXAMINATION: General: 74-year-old male laying down in bed in no apparent distress. HEENT: Head is atraumatic, normocephalic, pupils were equal round reactive to light and recommendation, extraocular muscle movement were intact, sclera nonicteric, conjunctivae were pale, mucous membranes of the mouth are somewhat dry. Neck: Supple, no JVP, normal carotid upstroke bilaterally, no lymphadenopathy. Chest: Decreased breath sounds at the bases, few rhonchi, minimal expiratory wheezes, no chest wall tenderness, no intercostal retractions. Heart: First heart sound is normal, second heart sounds normal there is systolic ejection murmur 2 over systolic in the left sternal border. Abdomen: Soft, nontender, nondistended, positive bowel sounds. Extremities: There is right above-knee amputation, left lower extremity with second and fifth digit amputation, significant dryness, dorsalis place in the left side p+1. Neurologic examination: Patient is awake alert and oriented x3, cranial nerves II-12 appear grossly intact, muscle power were 3 out of 5 in upper extremities and 2 out of 5 in left lower extremity ASSESSMENT AND PLAN: 1. Bibasilar likely gram-negative pneumonia possible aspiration with sepsis. Continue patient on Zosyn 3.375 g IV every 8 hours, add vancomycin with pharmacy to dose his peak and trough, sputum culture, blood culture, continue DuoNeb 3 nebulization 4 times every day, continue IV fluid resuscitation in the form of normal saline at 75 cc an hour, monitor the patient very closely, pulmonary consultation appreciated. 2. Hypertension and hypertensive cardiovascular disease. Continue patient on metoprolol 50 mg once every day, losartan 12.5 mg every day, monitor the patient blood pressure very closely. 3. Mixed hyperlipidemia. Continue patient on atorvastatin 40 mg once every day, monitor the patient with panel, keep LDL 55-70. 4. Diabetes mellitus type 2. Continue patient on Lantus 24 units at bedtime along with a sliding scale insulin continue with Farxiga 10 mg once every day. Check blood glucose before each meal and bedtime. 5. Severe PAD status post right above-knee amputation continue Xarelto 2.5 mg orally twice every day, continue atorvastatin 40 mg once every day for secondary prevention. 6. History of left basal ganglia infarct. Continue patient on aspirin 81 g once every day, atorvastatin 40 mg once every day, for secondary stroke preven tion, tight control of diabetes. 7. History of COPD. Continue patient on DuoNeb 3 mL nebulization 4 times every day, oxygen support as needed. 8. Depression continue patient on mirtazapine 7.5 mg orally once at bedtime. 9. Dysphagia. Patient should be evaluated by speech therapy, continue with nectar thick diet. 10. Medical debility. Continue with physical therapy evaluation. 11. DVT prophylaxis. Continue Xarelto 2.5 mg orally twice every day. 12. GI prophylaxis. Continue patient on Protonix 40 mg once every day. 13. Admit to inpatient. Estimated length of stay 2 midnights. 14. Patient is full code Past Medical History Past Medical History: Diabetes Mellitus, GI Bleed, Hearing Disorder / Deafness Additional Past Medical History / Comment(s): unhealing 2 wounds left foot -from rubbing on medical boot, HX of Diverticultis. Type IIDiabetic. [place]. Perforated ulcer. History of Any Multi-Drug Resistant Organisms: None Reported Past Surgical History: Hernia Repair Additional Past Surgical History / Comment(s): Hernia at age 3. Stomach surgery. Colonoscopy,amputation 2nd digit left foot. Recent amputation of the 5th digit foot -May 2024. above knee amputation Past Anesthesia/Blood Transfusion Reactions: No Reported Reaction Additional Past Anesthesia/Blood Transfusion Reaction / Comment(s): no hx blood transfusion Past Psychological History: No Psychological Hx Reported Smoking Status: Current every day smoker Past Alcohol Use History: Occasional Additional Past Alcohol Use History / Comment(s): Smokes approx. 1/2ppd, started smoking at age 11. Past Drug Use History: None Reported - Past Family History Sister(s) Family Medical History: Cancer Additional Family Medical History / Comment(s): Breast cancer Medications and Allergies Home Medications Medication Instructions Recorded Confirmed Type Acetaminophen [Tylenol Arthritis] 650 mg PO Q6H PRN 11/10/24 11/26/24 History Aspirin 81 mg PO DAILY@79911/10/24 11/26/24 History Atorvastatin [Lipitor] 40 mg PO DAILY@0800 11/10/24 11/26/24 History Dapagliflozin Propanediol [Farxiga] 10 mg PO DAILY@79911/10/24 11/26/24 History INSULIN LISPRO (humaLOG) [humaLOG] See Protocol SQ TID@0700,1100,1600 11/10/24 11/26/24 History Insulin Glargine,Hum.rec.anlog 24 units SQ HS@2130 11/10/24 11/26/24 History [Lantus Solostar Pen] Lidocaine 5% Cream 1 applic TOPICAL WE@0800 11/10/24 11/26/24 History Losartan [Cozaar] 12.5 mg PO DAILY@0800 11/10/24 11/26/24 History Magic Butt Paste 1 applic TOPICAL TID@0800,1200,1700 11/10/24 11/26/24 History Magnesium Hydroxide [Milk of 7,200 mg PO DAILY PRN 11/10/24 11/26/24 History Magnesia Concentrate] Na Phos,M-B/Na Phos,Di-Ba [Fleet 133 ml RECTAL DAILY PRN 11/10/24 11/26/24 History Adult] Nicotine 14Mg/24Hr Patch [Habitrol] 1 patch TRANSDERM DAILY@0800 11/10/24 11/26/24 History Pantoprazole [Protonix] 40 mg PO DAILY@0600 11/10/24 11/26/24 History Rivaroxaban [Xarelto] 2.5 mg PO BID@0800,1700 11/10/24 11/26/24 History bisacodyL [Dulcolax] 10 mg RECTAL DAILY PRN 11/10/24 11/26/24 History HYDROcodone/APAP 5-325MG [[place] 1 tab PO Q4-6H PRN 11/26/24 11/26/24 History 5-325] Ipratropium-Albuterol Nebulize 3 ml INHALATION RT-Q6H PRN 11/26/24 11/26/24 History [Duoneb 0.5 mg-3 mg/3 ml Soln] Metoprolol Succinate (ER) [Toprol 50 mg PO DAILY@0800 11/26/24 11/26/24 History Xl] Mighty Shake 1 dose PO TID@0800,1200,1700 11/26/24 11/26/24 History Mirtazapine 7.5 mg PO HS@2100 11/26/24 11/26/24 History Mucinex Fast Max Chest Congestion 600 mg PO BID@0800,1700 11/26/24 11/26/24 History Ms Oral Liquid Allergies Allergy/AdvReac Type Severity Reaction Status Date / Time No Known Allergies Allergy Verified 11/26/24 19:54 Physical Exam Vitals: Vital Signs Temp Pulse Pulse Resp BP BP BP 11/27/24 06:58 97.7 F 82 16 111/65 11/27/24 01:21 97.9 F 83 17 106/59 11/26/24 22:55 89 18 103/55 11/26/24 19:31 97.9 F 87 16 101/57 11/26/24 17:36 98.9 F 100 20 100/65 11/26/24 16:49 98.9 F 102 H 20 91/55 11/26/24 16:00 120 H 20 98/58 11/26/24 15:40 122 H 20 100/60 11/26/24 14:35 100.0 F H 120 H 14 114/73 Pulse Ox 11/27/24 06:58 100 11/27/24 01:21 95 11/26/24 22:55 97 11/26/24 19:31 94 L 11/26/24 17:36 94 L 11/26/24 16:49 96 11/26/24 16:00 96 11/26/24 15:40 98 11/26/24 14:35 95 Intake and Output 11/26/24 11/27/24 11/27/24 22:59 06:59 14:59 Other: Voiding Method External Catheter # Voids 0 # Bowel Movements 0 Weight 57.243 kg Results CBC & Chem 7: 12/04/24 04:42 12/04/24 04:42 Labs: Abnormal Lab Results - Last 24 Hours (Table) 11/26/24 11/26/24 11/26/24 Range/Units 15:02 15:02 15:02 WBC 13.1 H (3.8-10.6) k/uL MCHC 30.5 L (31.0-37.0) g/dL Neutrophils # 11.3 H (1.3-7.7) k/uL Lymphocytes # 0.9 L (1.0-4.8) k/uL PT 15.1 H (10.0-12.5) sec INR 1.4 H (<1.2) Sodium 148 H (137-145) mmol/L Chloride 108 H (98-107) mmol/L BUN 29 H (9-20) mg/dL Creatinine 0.63 L (0.66-1.25) mg/dL Glucose 184 H (74-99) mg/dL Plasma Lactic Acid [place] (0.7-2.0) mmol/L Alkaline Phosphatase 261 H (38-126) U/L Albumin 3.3 L (3.5-5.0) g/dL Ur Specific [place] (1.001-1.035) Urine Protein (Negative) Urine Glucose (UA) (Negative) Urine Ketones (Negative) 11/26/24 11/26/24 11/26/24 Range/Units 15:02 16:25 18:19 WBC (3.8-10.6) k/uL MCHC (31.0-37.0) g/dL Neutrophils # (1.3-7.7) k/uL Lymphocytes # (1.0-4.8) k/uL PT (10.0-12.5) sec INR (<1.2) Sodium (137-145) mmol/L Chloride (98-107) mmol/L BUN (9-20) mg/dL Creatinine (0.66-1.25) mg/dL Glucose (74-99) mg/dL Plasma Lactic Acid [place] 3.6 H* 2.5 H* (0.7-2.0) mmol/L Alkaline Phosphatase (38-126) U/L Albumin (3.5-5.0) g/dL Ur Specific [place] 1.046 H (1.001-1.035) Urine Protein Trace H (Negative) Urine Glucose (UA) 4+ H (Negative) Urine Ketones 1+ H (Negative) Thrombosis Risk Factor Assmnt - Choose All That Apply Any of the Below Risk Factors Present?: No Other Risk Factors: Yes Each Risk Factor Represents 3 Points: Age 75 years or older Thrombosis Risk Factor Assessment Total Risk Factor Score: 3 Thrombosis Risk Factor Assessment Level: Moderate Risk
[2024-11-27] MEDS: PIPERACILLIN-TAZOBACTAM 3.375 GM in SODIUM CHLORIDE 0.9% 100 ML IVPB SCH (11:51)
[2024-11-27] MEDS: SODIUM CHLORIDE 0.45% 1,000 ML IV SCH (11:52)
[2024-11-27] MEDS: INSULIN LISPRO (HumaLOG) 100 UNIT/ML 10 mL VL SQ SCH (11:53)
[2024-11-27 12:02] LABS: HGB 10.3 gm/dL (13.0-17.5)
[2024-11-27 12:40] LABS: Anisocytosis (M) Present; Lymphocytes # (M) 1.36 k/uL (1.0-4.8); Monocytes # (M) 0.57 k/uL (0-1.0); Neutrophils # (M) 9.38 k/uL (1.3-7.7); Neutrophils % (M) 83 %; Nucleated Red Blood Cells 0 /100 WBC (0-0); Total Cells Counted 100
[2024-11-27] MEDS: NYSTATIN 100,000 UNIT/ML SUSP 500,000 UNIT/5 ML CUP PO SCH (13:38)
[2024-11-27] MEDS: VANCOMYCIN 1,000 MG in SODIUM CHLORIDE 0.9% 250 ML IVPB ONE (13:39)
--- NOTE | 2024-11-27 14:28 | P.CNPUL ---
History of Present Illness Consult date: 11/27/24 Reason for consult: pneumonia History of present illness: 74-year-old medication being seen for pneumonia. The patient has multiple medical problems or comorbidities. The patient has history of peripheral vascular disease with a nonhealing right toe osteomyelitis and the patient has undergone previous toe amputation ultimately his infection progressed and the patient required a right above-knee amputation that was done by vascular surgery on 11/12/2024 and following that he was discharged to [facility] for further rehabilitation. He has other comorbidities including diabetes mellitus type 2 with diabetic peripheral neuropathy in addition to peripheral vascular disease, hypertension and hyperlipidemia. The patient presented to us with increased cough and congestion and some shortness of breath and hypoxemia. Chest x-ray showed bilateral lower lobe pneumonia. Apparently has been having difficulty swallowing and choking on food material. Aspiration was suspected. Initially , he was started on Rocephin and and Zithromax. Respiratory IV Zosyn and vancomycin was also added regarding his pneumonia based on his comorbidities and previous hospitalizations. Currently, the patient is hemodynamically stable on 2 L of oxygen by nasal cannula. The white cell count is at 11 with a hemoglobin of 10.3 and a platelet count of 289. BUN 24 with a creatinine of 0.5. No altered mentation. He has some oropharyngeal candidiasis. He has poor dentition Review of Systems Constitutional: No documented fever, no chills, no night sweats. No weight change. No weakness, fatigue or lethargy. No daytime sleepiness. EENT: No headache. No blurred vision or double vision, no loss of vision. No loss of Hearing, no ringing in the ears, no dizziness. No nasal drainage or congestion. No epistaxis. No sore throat. Lungs: positive for shortness of breath, occasional cough, minimal sputum production. No wheezing. Reports dyspnea with activity. Cardiovascular: No chest pain, no lower extremity edema. No palpitations. No paroxysmal nocturnal dyspnea. No orthopnea. No lightheadedness or dizziness. No syncopal episodes. Abdominal: Reports abdominal pain. No nausea, vomiting. No diarrhea. No constipation. No bloody or tarry stools reports loss of appetite. Genitourinary: No dysuria, increased frequency, urgency. No urinary retention. Musculoskeletal: No myalgias. positive for muscle weakness, positive for gait dysfunction, no frequent falls. No back pain. No neck pain. Integumentary: Right above-knee amputation wound with trev in place, no lesions. No rash or pruritus. No unusual bruising. No change in hair or nails. Neurologic: No aphasia. No facial droop. No change in mentation. No head injury. No headache. No paralysis. No paresthesia. Psychiatric: positive for depression. No anxiety. No mood swings. Endocrine: positive for abnormal blood sugars. No weight change. Past Medical History Past Medical History: Diabetes Mellitus, GI Bleed, Hearing Disorder / Deafness Additional Past Medical History / Comment(s): unhealing 2 wounds left foot -from rubbing on medical boot, HX of Diverticultis. Type IIDiabetic. [place]. Perforated ulcer. History of Any Multi-Drug Resistant Organisms: None Reported Past Surgical History: Hernia Repair Additional Past Surgical History / Comment(s): Hernia at age 3. Stomach surgery. Colonoscopy,amputation 2nd digit left foot. Recent amputation of the 5th digit foot -May 2024. above knee amputation Past Anesthesia/Blood Transfusion Reactions: No Reported Reaction Additional Past Anesthesia/Blood Transfusion Reaction / Comment(s): no hx blood transfusion Past Psychological History: No Psychological Hx Reported Smoking Status: Current every day smoker Past Alcohol Use History: Occasional Additional Past Alcohol Use History / Comment(s): Smokes approx. 1/2ppd, started smoking at age 11. Past Drug Use History: None Reported - Past Family History Sister(s) Family Medical History: Cancer Additional Family Medical History / Comment(s): Breast cancer Medications and Allergies Home Medications Medication Instructions Recorded Confirmed Type Acetaminophen [Tylenol Arthritis] 650 mg PO Q6H PRN 11/10/24 11/26/24 History Aspirin 81 mg PO DAILY@79911/10/24 11/26/24 History Atorvastatin [Lipitor] 40 mg PO DAILY@0811/10/24 11/26/24 History Dapagliflozin Propanediol [Farxiga] 10 mg PO DAILY@79911/10/24 11/26/24 History INSULIN LISPRO (humaLOG) [humaLOG] See Protocol SQ TID@0700,1100,1600 11/10/24 11/26/24 History Insulin Glargine,Hum.rec.anlog 24 units SQ HS@212911/10/24 11/26/24 History [Lantus Solostar Pen] Lidocaine 5% Cream 1 applic TOPICAL WE@0800 11/10/24 11/26/24 History Losartan [Cozaar] 12.5 mg PO DAILY@0800 11/10/24 11/26/24 History Magic Butt Paste 1 applic TOPICAL TID@0800,1200,1700 11/10/24 11/26/24 History Magnesium Hydroxide [Milk of 7,200 mg PO DAILY PRN 11/10/24 11/26/24 History Magnesia Concentrate] Na Phos,M-B/Na Phos,Di-Ba [Fleet 133 ml RECTAL DAILY PRN 11/10/24 11/26/24 History Adult] Nicotine 14Mg/24Hr Patch [Habitrol] 1 patch TRANSDERM DAILY@0800 11/10/24 11/26/24 History Pantoprazole [Protonix] 40 mg PO DAILY@0600 11/10/24 11/26/24 History Rivaroxaban [Xarelto] 2.5 mg PO BID@0800,1700 11/10/24 11/26/24 History bisacodyL [Dulcolax] 10 mg RECTAL DAILY PRN 11/10/24 11/26/24 History HYDROcodone/APAP 5-325MG [[place] 1 tab PO Q4-6H PRN 11/26/24 11/26/24 History 5-325] Ipratropium-Albuterol Nebulize 3 ml INHALATION RT-Q6H PRN 11/26/24 11/26/24 History [Duoneb 0.5 mg-3 mg/3 ml Soln] Metoprolol Succinate (ER) [Toprol 50 mg PO DAILY@0800 11/26/24 11/26/24 History Xl] Mighty Shake 1 dose PO TID@0800,1200,1700 11/26/24 11/26/24 History Mirtazapine 7.5 mg PO HS@2100 11/26/24 11/26/24 History Mucinex Fast Max Chest Congestion 600 mg PO BID@0800,1700 11/26/24 11/26/24 History Ms Oral Liquid Allergies Allergy/AdvReac Type Severity Reaction Status Date / Time No Known Allergies Allergy Verified 11/26/24 19:54 Physical Exam Vitals: Vital Signs Temp Pulse Pulse Resp BP BP BP 11/27/24 13:44 97.8 F 74 17 94/64 11/27/24 06:58 97.7 F 82 16 111/65 11/27/24 01:21 97.9 F 83 17 106/59 11/26/24 22:55 89 18 103/55 11/26/24 19:31 97.9 F 87 16 101/57 11/26/24 17:36 98.9 F 100 20 100/65 11/26/24 16:49 98.9 F 102 H 20 91/55 11/26/24 16:00 120 H 20 98/58 11/26/24 15:40 122 H 20 100/60 11/26/24 14:35 100.0 F H 120 H 14 114/73 Pulse Ox 11/27/24 13:44 96 11/27/24 06:58 100 11/27/24 01:21 95 11/26/24 22:55 97 11/26/24 19:31 94 L 11/26/24 17:36 94 L 11/26/24 16:49 96 11/26/24 16:00 96 11/26/24 15:40 98 11/26/24 14:35 95 Intake and Output 11/26/24 11/27/24 11/27/24 22:59 06:59 14:59 Other: Voiding Method External Catheter # Voids 0 # Bowel Movements 0 Weight 57.243 kg The patient appeared well nourished and normally developed. Vital signs as documented., Comfortable with a BMI of 21.7. The patient is currently on 2 L of oxygen by nasal cannula. Some limited oropharyngeal candidiasis. Head exam is unremarkable. No scleral icterus or corneal arcus noted. Neck is without jugular venous distension, thyromegaly, or carotid bruits. Carotid upstrokes are brisk bilaterally. Lungs diminished breath sound in the lung bases and scattered rhonchi Cardiac exam reveals the PMI to be normally sized and situated. Rhythm is regular. First and second heart sounds normal. No murmurs, rubs or gallops. Abdominal exam reveals normal bowel sounds, no masses, no organomegaly and no aortic enlargement. Extremities above-knee amputation of the right with a surgical wound site is being dry clean and intact. Diminished pulses on the left. Examination of the skin revealed no evidence of significant rashes, suspicious appearing nevi or other concerning lesions. Neurologically, the patient is awake and alert and the patient does not have any focal neurological deficit. Cranial nerves are essentially intact. Results - Laboratory Findings CBC and BMP: 11/27/24 11:03 11/27/24 11:03 PT/INR, D-dimer PT 15.1 sec (10.0-12.5) H 11/26/24 15:02 INR 1.4 (<1.2) H 11/26/24 15:02 Abnormal lab findings: Abnormal Labs 11/26/24 11/26/24 11/26/24 15:02 15:02 15:02 WBC 13.1 H RBC Hgb Hct MCHC 30.5 L Neutrophils # 11.3 H Neutrophils # (Manual) Lymphocytes # 0.9 L PT 15.1 H INR 1.4 H Sodium 148 H Chloride 108 H BUN 29 H Creatinine 0.63 L Glucose 184 H POC Glucose (mg/dL) Plasma Lactic Acid [place] Alkaline Phosphatase 261 H Albumin 3.3 L Ur Specific [place] Urine Protein Urine Glucose (UA) Urine Ketones 11/26/24 11/26/24 11/26/24 15:02 16:25 18:19 WBC RBC Hgb Hct MCHC Neutrophils # Neutrophils # (Manual) Lymphocytes # PT INR Sodium Chloride BUN Creatinine Glucose POC Glucose (mg/dL) Plasma Lactic Acid [place] 3.6 H* 2.5 H* Alkaline Phosphatase Albumin Ur Specific [place] 1.046 H Urine Protein Trace H Urine Glucose (UA) 4+ H Urine Ketones 1+ H 11/27/24 11/27/24 11/27/24 11:03 11:03 11:32 WBC 11.3 H RBC 3.58 L Hgb 10.3 L D Hct 34.8 L MCHC 29.6 L Neutrophils # Neutrophils # (Manual) 9.38 H Lymphocytes # PT INR Sodium Chloride 109 H BUN 24 H Creatinine 0.53 L Glucose POC Glucose (mg/dL) 334 H Plasma Lactic Acid [place] Alkaline Phosphatase Albumin Ur Specific [place] Urine Protein Urine Glucose (UA) Urine Ketones - Diagnostic Findings Chest x-ray: image reviewed Assessment and Plan Plan: Acute bilateral lower lobe pneumonia, likely aspiration. The patient has poor dentition. The patient has also dysphagia and difficulty swallowing and choking of food material. Aspiration pneumonia versus hospital-acquired pneumonia is being considered on this patient. The patient is currently on a combination of Zosyn and vancomycin. Acute hypoxic respiratory failure currently on 2 L of O2 nasal cannula Severe PVOD and the patient has undergone a previous right above-knee amputation Hypertension Diabetes mellitus type 2 along with complication of diabetes mellitus including peripheral neuropathy History of left basal ganglia infarct/CVA COPD Depression Chronic dysphagia Plan Titrate oxygen flow to maintain saturation above 90% Aspiration precautions Swallow evaluation Nystatin to swish and swallow Zosyn vancomycin combination Chest x-ray for the next 48 hours Hemodynamically stable Resume home medications Will follow
[2024-11-27 16:33] LABS: Glucose,Whole Blood 77 mg/dL (70-110)
[2024-11-27] MEDS: RIVAROXABAN 2.5 MG TABLET PO SCH (16:56)
[2024-11-27 20:51] LABS: Glucose,Whole Blood 82 mg/dL (70-110)
[2024-11-28] MEDS: VANCOMYCIN 1,000 MG in SODIUM CHLORIDE 0.9% 250 ML IVPB SCH (01:31)
[2024-11-28 03:01] LABS: Glucose,Whole Blood 69 mg/dL (70-110)
[2024-11-28 06:09] LABS: Glucose,Whole Blood 68 mg/dL (70-110)
[2024-11-28] MEDS: DEXTROSE 5%-0.45% NACL 1,000 ML IV SCH (06:50)
[2024-11-28 06:53] LABS: Glucose,Whole Blood 74 mg/dL (70-110)
[2024-11-28 07:13] LABS: Glucose,Whole Blood 75 mg/dL (70-110)
[2024-11-28 09:23] LABS: Basophils # (A) 0.03 X 10*3/uL (0.00-0.10); Basophils % (A) 0.3 %; Eosinophils # (A) 0.42 X 10*3/uL (0.04-0.35); Eosinophils % (A) 3.8 %; HCT 34.5 % (39.6-50.0); HGB 10.3 g/dL (13.0-17.0); Lymphocytes # (A) 1.27 X 10*3/uL (0.90-5.00); Lymphocytes % (A) 11.6 %; MCH 29.3 pg (27.0-32.0); MCHC 29.9 g/dL (32.0-37.0); MCV 98.3 FL (80.0-97.0); Mean Platelet Volume 11.6 FL (9.5-12.2); Monocytes # (A) 0.59 X 10*3/uL (0.20-1.00); Monocytes % (A) 5.4 %; NRBC Per 100 WBC 0 X 10*3/uL (0.00-0.01); Neutrophils # (A) 8.64 X 10*3/uL (1.80-7.70); Neutrophils % (A) 78.5 %; Platelet Count 273 X 10*3/uL (140-440); RBC 3.51 X 10*6/uL (4.40-5.60); RDW 13.6 % (11.5-14.5); WBC 10.99 X 10*3/uL (4.50-10.00)
[2024-11-28 09:55] LABS: ALT 14 U/L (10-49); AST 28 U/L (14-35); Albumin 2.4 g/dL (3.8-4.9); Albumin/Globulin Ratio 0.73 Ratio (1.60-3.17); Alkaline Phosphatase 183 U/L (41-126); Blood Urea Nitrogen 19.3 mg/dL (9.0-27.0); Calcium 8.1 mg/dL (8.7-10.3); Carbon Dioxide 24.8 mmol/L (21.6-31.8); Chloride 110 mmol/L (96-109); Globulin 3.3 g/dL (1.6-3.3); Glucose 60 mg/dL (70-110); Potassium 3.5 mmol/L (3.5-5.5); Sodium 145 mmol/L (135-145); Total Bilirubin 0.4 mg/dL (0.3-1.2); Total Protein 5.7 g/dL (6.2-8.2)
[2024-11-28 10:07] LABS: Magnesium 1.9 mg/dL (1.5-2.4)
[2024-11-28] MEDS: D5-0.45% NACL WITH KCL 20MEQ/L 1,000 ML IV SCH (11:07)
[2024-11-28 11:39] LABS: Glucose,Whole Blood 95 mg/dL (70-110)
--- NOTE | 2024-11-28 11:45 | P.PN ---
Subjective Progress Note Date: 11/28/24 HISTORY OF PRESENT ILLNESS: This is a 74-year-old male with a previous medical history significant for hy pertension and hypertensive Vascular disease, mixed hyperlipidemia, diabetes mellitus type 2, with diabetic polyneuropathy, history of severe peripheral artery occlusive disease, status post revascularization of the right tibial vessel because of a nonhealing right great toe osteomyelitis, he ended up going for right great toe amputation in the past, because of nonhealing he was gone for right above-knee amputation that was done by Dr. June on 11/12/2024 and the patient was sent back to [facility] for physical therapy rehabilitation, while he was at [facility] yesterday patient apparently has some trouble swallowing the food, apparently had choked on his food, he had an episode of increased shortn ess of breath, he woke up in the morning with increased shortness of breath, with oxygenation dropped to 78%, chest x-ray showed evidence of bibasilar infiltrates, he was sent to the ER for evaluation, he was found to have bibasilar infiltrate likely aspiration pneumonia likely gram-negative pneumonia, patient initially was started on Zithromax Rocephin that was taken off, he was placed on Zosyn I will add vancomycin with pharmacy to dose the peak and trough, sputum culture will be obtained, pulmonary consultation was obtained, continue with DuoNeb 3 mL nebulization 4 times every day, follow-up with the patient very closely, patient continues to have trev in the right above-knee amputation 11/28: Patient is laying down in bed in no apparent distress, he is not eating much, he is having difficulty swallowing, speech therapy consulted, patient will be switched to D5 half-normal saline with 40 KCl at 75 cc an hour, continue to follow-up with the patient very closely, continue vancomycin with pharmacy to dose its peak and trough, continue also Zosyn, sputum culture, blood culture, follow-up with the patient very closely continue DuoNeb nebulization 4 times every day, repeat chest x-ray in the next 24 hours, pulmonary is following as well REVIEW OF SYSTEMS: Constitutional: No documented fever, no chills, no night sweats. No weight change. No weakness, fatigue or lethargy. No daytime sleepiness. EENT: No headache. No blurred vision or double vision, no loss of vision. No loss of Hearing, no ringing in the ears, no dizziness. No nasal drainage or congestion. No epistaxis. No sore throat. Lungs: positive for shortness of breath, occasional cough, minimal sputum pro duction. No wheezing. Reports dyspnea with activity. Cardiovascular: No chest pain, no lower extremity edema. No palpitations. No paroxysmal nocturnal dyspnea. No orthopnea. No lightheadedness or dizziness. No syncopal episodes. Abdominal: Reports abdominal pain. No nausea, vomiting. No diarrhea. No constipation. No bloody or tarry stools reports loss of appetite. Genitourinary: No dysuria, increased frequency, urgency. No urinary retention. Musculoskeletal: No myalgias. positive for muscle weakness, positive for gait dysfunction, no frequent falls. No back pain. No neck pain. Integumentary: Right above-knee amputation wound with trev in place, no lesions. No rash or pruritus. No unusual bruising. No change in hair or nails. Neurologic: No aphasia. No facial droop. No change in mentation. No head injury. No headache. No paralysis. No paresthesia. Psychiatric: positive for depression. No anxiety. No mood swings. Endocrine: positive for abnormal blood sugars. No weight change. PHYSICAL EXAMINATION: General: 74-year-old male laying down in bed in no apparent distress. HEENT: Head is atraumatic, normocephalic, pupils were equal round reactive to light and recommendation, extraocular muscle movement were intact, sclera nonicteric, conjunctivae were pale, mucous membranes of the mouth are somewhat dry. Neck: Supple, no JVP, normal carotid upstroke bilaterally, no lymphadenopathy. Chest: Decreased breath sounds at the bases, few rhonchi, minimal expiratory wheezes, no chest wall tenderness, no intercostal retractions. Heart: First heart sound is normal, second heart sounds normal there is systolic ejection murmur 2 over systolic in the left sternal border. Abdomen: Soft, nontender, nondistended, positive bowel sounds. Extremities: There is right above-knee amputation with trev in place, left lower extremity with second and fifth digit amputation, significant dryness, dorsalis place in the left side p+1. Neurologic examination: Patient is awake alert and oriented x3, cranial nerves II-12 appear grossly intact, muscle power were 3 out of 5 in upper extremities and 2 out of 5 in left lower extremity ASSESSMENT AND PLAN: 1. Bibasilar likely gram-negative pneumonia possible aspiration with sepsis. Continue patient on Zosyn 3.375 g IV every 8 hours, continue vancomycin 1000 mg IV piggyback every 12 hours, sputum culture still pending, blood culture will be done, urine Legionella antigen, continue DuoNeb 3 mL nebulization 4 times every day, continue with Mucinex twice every day, follow-up with the patient very closely, pulmonary is following. 2. Hypertension and hypertensive cardiovascular disease. Continue patient on metoprolol 50 mg once every day, losartan 12.5 mg every day, monitor the patient blood pressure very closely. 3. Mixed hyperlipidemia. Continue patient on atorvastatin 40 mg once every day, monitor the patient with panel, keep LDL 55-70. 4. Diabetes mellitus type 2 with recurrent hypoglycemia as the patient is not eating much, change IV fluid to D5 half-normal saline with 20 KCl at 75 cc an hour, discontinue Lantus, continue sliding scale, continue Farxiga 10 mg once every day. Follow-up with the patient very closely 5. Severe PAD status post right above-knee amputation continue Xarelto 2.5 mg orally twice every day, continue atorvastatin 40 mg once every day for secondary prevention. Consult vascular team for possible staple removal. 6. History of left basal ganglia infarct. Continue patient on aspirin 81 g once every day, atorvastatin 40 mg once every day, for secondary stroke prevention, tight control of diabetes. In view of his dysphagia consult neurology. 7. History of COPD. Continue patient on DuoNeb 3 mL nebulization 4 times every day, oxygen support as needed. 8. Depression continue patient on mirtazapine 7.5 mg orally once at bedtime. 9. Dysphagia. Patient should be evaluated by speech therapy, continue with nectar thick diet. Consult neurology. 10. Medical debility. Continue with physical therapy evaluation. 11. DVT prophylaxis. Continue Xarelto 2.5 mg orally twice every day. 12. GI prophylaxis. Continue patient on Protonix 40 mg once every day. 13. Overall prognosis is very guarded. Objective - Vital Signs Vital signs: Vital Signs Temp 97.7 F 11/28/24 06:47 Pulse 73 11/28/24 06:47 Resp 17 11/28/24 06:47 BP 117/64 11/28/24 06:47 Pulse Ox 98 11/28/24 06:47 FiO2 Intake & Output 11/27/24 11/28/24 11/28/24 18:59 06:59 18:59 Output Total 300 Balance -300 Output: Urine 300 Other: Voiding Method External Catheter External Catheter # Voids 2 # Bowel Movements 0 - Labs CBC & Chem 7: 11/28/24 05:49 11/28/24 05:49 Labs: Abnormal Lab Results - Last 24 Hours (Table) 11/27/24 11/27/24 11/27/24 Range/Units 11:03 11:03 11:32 WBC 11.3 H (3.8-10.6) k/uL RBC 3.58 L (4.30-5.90) m/uL Hgb 10.3 L D (13.0-17.5) gm/dL Hct 34.8 L (39.0-53.0) % MCV (80.0-97.0) FL MCHC 29.6 L (31.0-37.0) g/dL Neutrophils # (1.80-7.70) X 10*3/uL Neutrophils # (Manual) 9.38 H (1.3-7.7) k/uL Eosinophils # (0.04-0.35) X 10*3/uL Chloride 109 H (98-107) mmol/L BUN 24 H (9-20) mg/dL Creatinine 0.53 L (0.66-1.25) mg/dL POC Glucose (mg/dL) 334 H (70-110) mg/dL 11/28/24 11/28/24 11/28/24 Range/Units 03:00 05:49 06:08 WBC 10.99 H (3.8-10.6) k/uL RBC 3.51 L (4.30-5.90) m/uL Hgb 10.3 L (13.0-17.5) gm/dL Hct 34.5 L (39.0-53.0) % MCV 98.3 H (80.0-97.0) FL MCHC 29.9 L (31.0-37.0) g/dL Neutrophils # 8.64 H (1.80-7.70) X 10*3/uL Neutrophils # (Manual) (1.3-7.7) k/uL Eosinophils # 0.42 H (0.04-0.35) X 10*3/uL Chloride (98-107) mmol/L BUN (9-20) mg/dL Creatinine (0.66-1.25) mg/dL POC Glucose (mg/dL) 69 L 68 L (70-110) mg/dL Microbiology - Last 24 Hours (Table) 11/26/24 15:02 Blood Culture - Preliminary Blood
--- NOTE | 2024-11-28 14:01 | P.PN ---
Subjective Progress Note Date: 11/28/24 74-year-old medication being seen for pneumonia. The patient has multiple medical problems or comorbidities. The patient has history of peripheral vascular disease with a nonhealing right toe osteomyelitis and the patient has undergone previous toe amputation ultimately his infection progressed and the patient required a right above-knee amputation that was done by vascular surgery on 11/12/2024 and following that he was discharged to [facility] for further rehabilitation. He has other comorbidities including diabetes mellitus type 2 with diabetic peripheral neuropathy in addition to peripheral vascular disease, hypertension and hyperlipidemia. The patient presented to us with increased cou gh and congestion and some shortness of breath and hypoxemia. Chest x-ray showed bilateral lower lobe pneumonia. Apparently has been having difficulty swallowing and choking on food material. Aspiration was suspected. Initially , he was started on Rocephin and and Zithromax. Respiratory IV Zosyn and vancomycin was also added regarding his pneumonia based on his comorbidities and previous hospitalizations. Currently, the patient is hemodynamically stable on 2 L of oxygen by nasal cannula. The white cell count is at 11 with a hemoglobin of 10.3 and a platelet count of 289. BUN 24 with a creatinine of 0.5. No altered mentation. He has some oropharyngeal candidiasis. He has poor denti tion On 11/28/2024, the patient is being seen for a follow-up. He is calm and comfortable. He has no significant complaints. This morning, his cough is less congested. He is afebrile. Maintained on 2 L of oxygen by nasal cannula with pulse ox of 98%. No other significant events overnight. Objective - Vital Signs Vital signs: Vital Signs Temp 97.7 F 11/28/24 06:47 Pulse 73 11/28/24 06:47 Resp 17 11/28/24 06:47 BP 117/64 11/28/24 06:47 Pulse Ox 98 11/28/24 06:47 FiO2 Intake & Output 11/27/24 11/28/24 11/28/24 18:59 06:59 18:59 Output Total 300 Balance -300 Output: Urine 300 Other: Voiding Method External Catheter External Catheter # Voids 2 # Bowel Movements 0 - Exam The patient appeared well nourished and normally developed. Vital signs as documented., Comfortable with a BMI of 21.7. The patient is currently on 2 L of oxygen by nasal cannula. Some limited oropharyngeal candidiasis. Head exam is unremarkable. No scleral icterus or corneal arcus noted. Neck is without jugular venous distension, thyromegaly, or carotid bruits. Carotid upstrokes are brisk bilaterally. Lungs diminished breath sound in the lung bases and scattered rhonchi Cardiac exam reveals the PMI to be normally sized and situated. Rhythm is regular. First and second heart sounds normal. No murmurs, rubs or gallops. Abdominal exam reveals normal bowel sounds, no masses, no organomegaly and no aortic enlargement. Extremities above-knee amputation of the right with a surgical wound site is being dry clean and intact. Diminished pulses on the left. Examination of the skin revealed no evidence of significant rashes, suspicious appearing nevi or other concerning lesions. Neurologically, the patient is awake and alert and the patient does not have any focal neurological deficit. Cranial nerves are essentially intact. - Labs CBC & Chem 7: 11/28/24 05:49 11/28/24 05:49 Labs: Abnormal Lab Results - Last 24 Hours (Table) 11/27/24 11/27/24 11/27/24 Range/Units 11:03 11:03 11:32 WBC 11.3 H (3.8-10.6) k/uL RBC 3.58 L (4.30-5.90) m/uL Hgb 10.3 L D (13.0-17.5) gm/dL Hct 34.8 L (39.0-53.0) % MCV (80.0-97.0) FL MCHC 29.6 L (31.0-37.0) g/dL Neutrophils # (1.80-7.70) X 10*3/uL Neutrophils # (Manual) 9.38 H (1.3-7.7) k/uL Eosinophils # (0.04-0.35) X 10*3/uL Chloride 109 H (98-107) mmol/L BUN 24 H (9-20) mg/dL Creatinine 0.53 L (0.66-1.25) mg/dL BUN/Creatinine Ratio (12.00-20.00) Ratio Glucose (70-110) mg/dL POC Glucose (mg/dL) 334 H (70-110) mg/dL Calcium (8.7-10.3) mg/dL Alkaline Phosphatase (41-126) U/L Total Protein (6.2-8.2) g/dL Albumin (3.8-4.9) g/dL Albumin/Globulin Ratio (1.60-3.17) Ratio 11/28/24 11/28/24 11/28/24 Range/Units 03:00 05:49 05:49 WBC 10.99 H (3.8-10.6) k/uL RBC 3.51 L (4.30-5.90) m/uL Hgb 10.3 L (13.0-17.5) gm/dL Hct 34.5 L (39.0-53.0) % MCV 98.3 H (80.0-97.0) FL MCHC 29.9 L (31.0-37.0) g/dL Neutrophils # 8.64 H (1.80-7.70) X 10*3/uL Neutrophils # (Manual) (1.3-7.7) k/uL Eosinophils # 0.42 H (0.04-0.35) X 10*3/uL Chloride 110 H (98-107) mmol/L BUN (9-20) mg/dL Creatinine 0.5 L (0.66-1.25) mg/dL BUN/Creatinine Ratio 38.60 H (12.00-20.00) Ratio Glucose 60 L (70-110) mg/dL POC Glucose (mg/dL) 69 L (70-110) mg/dL Calcium 8.1 L (8.7-10.3) mg/dL Alkaline Phosphatase 183 H (41-126) U/L Total Protein 5.7 L (6.2-8.2) g/dL Albumin 2.4 L (3.8-4.9) g/dL Albumin/Globulin Ratio 0.73 L (1.60-3.17) Ratio 11/28/24 Range/Units 06:08 WBC (3.8-10.6) k/uL RBC (4.30-5.90) m/uL Hgb (13.0-17.5) gm/dL Hct (39.0-53.0) % MCV (80.0-97.0) FL MCHC (31.0-37.0) g/dL Neutrophils # (1.80-7.70) X 10*3/uL Neutrophils # (Manual) (1.3-7.7) k/uL Eosinophils # (0.04-0.35) X 10*3/uL Chloride (98-107) mmol/L BUN (9-20) mg/dL Creatinine (0.66-1.25) mg/dL BUN/Creatinine Ratio (12.00-20.00) Ratio Glucose (70-110) mg/dL POC Glucose (mg/dL) 68 L (70-110) mg/dL Calcium (8.7-10.3) mg/dL Alkaline Phosphatase (41-126) U/L Total Protein (6.2-8.2) g/dL Albumin (3.8-4.9) g/dL Albumin/Globulin Ratio (1.60-3.17) Ratio Microbiology - Last 24 Hours (Table) 11/26/24 15:02 Blood Culture - Preliminary Blood Assessment and Plan Plan: Acute bilateral lower lobe pneumonia, likely aspiration. The patient has poor dentition. The patient has also dysphagia and difficulty swallowing and choking of food material. Aspiration pneumonia versus hospital-acquired pneumonia is being considered on this patient. The patient is currently on a combination of Zosyn and vancomycin. Acute hypoxic respiratory failure currently on 2 L of O2 nasal cannula Severe PVOD and the patient has undergone a previous right above-knee amputation Hypertension Diabetes mellitus type 2 along with complication of diabetes mellitus including peripheral neuropathy History of left basal ganglia infarct/CVA COPD Depression Chronic dysphagia Plan Clinically stable Titrate oxygen flow to maintain saturation above 90%, remains on 2 L of oxygen by nasal cannula Aspiration precautions Swallow evaluation in a.m. Nystatin to swish and swallow Zosyn vancomycin combination Chest x-ray for the next 48 hours Hemodynamically stable Resume home medications Will follow
--- NOTE | 2024-11-28 16:07 | P.CNNES ---
History of Present Illness Consult date: 11/28/24 Reason for Consult: Stroke History of Present Illness: The patient is a 74-year-old male who was seen in neurologic consultation on November 28, 2024, in collaboration with Becka Jay, via teleneurology. History is obtained from review of the chart. The patient reports he does not know why he is in the hospital. According to the emergency department note, the patient was sent in from his [place] [facility] because of decrease in mental status status as well as, shortness of breath, cough and fever. Upon further review, it appears that the patient had difficulty swallowing and began choking on food. Patient then became short of breath. According to pulmonary notes and chest x-ray report, the patient has pneumonia. It is thought to be an aspiration pneumonia. Patient was reportedly febrile at the [place] [facility] facility. He was febrile upon presentation to the emergency department. The emergency department note reports that the patient is able to answer questions he is reportedly however, a poor historian. According to the history and physical, the patient is alert and oriented x 3. CT scan of the brain performed in the emergency department was reportedly negative for acute hemorrhage and infarct. Laboratory evaluation revealed an elevated white blood cell count of 13.1. Hemoglobin 13.8. Sodium mildly elevated 148. BUN elevated 29 and creatinine 0.63. The patient has a recent history of a right dpego-fjq-zlin amputation secondary to peripheral arterial disease as well as peripheral neuropathy secondary to diabetes mellitus. Past Medical History Past Medical History: Diabetes Mellitus, GI Bleed, Hearing Disorder / Deafness Additional Past Medical History / Comment(s): unhealing 2 wounds left foot -from rubbing on medical boot, HX of Diverticultis. Type IIDiabetic. [place]. Perforated ulcer. History of Any Multi-Drug Resistant Organisms: None Reported Past Surgical History: Hernia Repair Additional Past Surgical History / Comment(s): Hernia at age 3. Stomach surgery. Colonoscopy,amputation 2nd digit left foot. Recent amputation of the 5th digit foot -May 2024. above knee amputation Past Anesthesia/Blood Transfusion Reactions: No Reported Reaction Additional Past Anesthesia/Blood Transfusion Reaction / Comment(s): no hx blood transfusion Past Psychological History: No Psychological Hx Reported Smoking Status: Current every day smoker Past Alcohol Use History: Occasional Additional Past Alcohol Use History / Comment(s): Smokes approx. 1/2ppd, started smoking at age 11. Past Drug Use History: None Reported - Past Family History Sister(s) Family Medical History: Cancer Additional Family Medical History / Comment(s): Breast cancer Medications and Allergies Home Medications Medication Instructions Recorded Confirmed Type Acetaminophen [Tylenol Arthritis] 650 mg PO Q6H PRN 11/10/24 11/26/24 History Aspirin 81 mg PO DAILY@0800 11/10/24 11/26/24 History Atorvastatin [Lipitor] 40 mg PO DAILY@0800 11/10/24 11/26/24 History Dapagliflozin Propanediol [Farxiga] 10 mg PO DAILY@0800 11/10/24 11/26/24 History INSULIN LISPRO (humaLOG) [humaLOG] See Protocol SQ TID@0700,1100,1600 11/10/24 11/26/24 History Insulin Glargine,Hum.rec.anlog 24 units SQ HS@2130 11/10/24 11/26/24 History [Lantus Solostar Pen] Lidocaine 5% Cream 1 applic TOPICAL WE@0800 11/10/24 11/26/24 History Losartan [Cozaar] 12.5 mg PO DAILY@0800 11/10/24 11/26/24 History Magic Butt Paste 1 applic TOPICAL TID@0800,1200,1700 11/10/24 11/26/24 History Magnesium Hydroxide [Milk of 7,200 mg PO DAILY PRN 11/10/24 11/26/24 History Magnesia Concentrate] Na Phos,M-B/Na Phos,Di-Ba [Fleet 133 ml RECTAL DAILY PRN 11/10/24 11/26/24 History Adult] Nicotine 14Mg/24Hr Patch [Habitrol] 1 patch TRANSDERM DAILY@0800 11/10/24 11/26/24 History Pantoprazole [Protonix] 40 mg PO DAILY@0600 11/10/24 11/26/24 History Rivaroxaban [Xarelto] 2.5 mg PO BID@0800,1700 11/10/24 11/26/24 History bisacodyL [Dulcolax] 10 mg RECTAL DAILY PRN 11/10/24 11/26/24 History HYDROcodone/APAP 5-325MG [[place] 1 tab PO Q4-6H PRN 11/26/24 11/26/24 History 5-325] Ipratropium-Albuterol Nebulize 3 ml INHALATION RT-Q6H PRN 11/26/24 11/26/24 History [Duoneb 0.5 mg-3 mg/3 ml Soln] Metoprolol Succinate (ER) [Toprol 50 mg PO DAILY@0800 11/26/24 11/26/24 History Xl] Boomy Shake 1 dose PO TID@0800,1200,1700 11/26/24 11/26/24 History Mirtazapine 7.5 mg PO HS@2100 11/26/24 11/26/24 History Mucinex Fast Max Chest Congestion 600 mg PO BID@0800,1700 11/26/24 11/26/24 His tory Ms Oral Liquid Allergies Allergy/AdvReac Type Severity Reaction Status Date / Time No Known Allergies Allergy Verified 11/26/24 19:54 Physical Examination - Vital Signs Vital Signs: Vital Signs Temp Pulse Resp BP BP Pulse Ox 11/28/24 06:47 97.7 F 73 17 117/64 98 11/28/24 01:59 97.4 F L 61 17 126/74 97 11/27/24 18:47 97.4 F L 94 17 119/70 95 11/27/24 13:44 97.8 F 74 17 94/64 96 Intake and Output 11/27/24 11/28/24 11/28/24 22:59 06:59 14:59 Output Total 300 Balance -300 Output: Urine 300 Other: Voiding Method External Catheter # Voids 2 # Bowel Movements 0 General: The patient is reclining in the bed. He is a thin man and is in no acute distress. HEENT: Head is atraumatic, normocephalic. Fundus not visualized. There is no scleral icterus. Mucous membranes are moist. Neck: Supple without carotid bruits Heart: Regular rate and rhythm Lungs: Essentially clear to auscultation Extremities: Without edema. There is a right tnkpn-bbq-eykm amputation. There are noted to be wounds on the left lower extremity Neurological examination Mental status: Patient is awake and alert. He is able to state his full name, date of , president. He is not oriented to his current age, the year or the month. His speech is clear. There is no dysarthria or aphasia. Cranial nerves: Pupils are equal at 2 mm and sluggishly reactive to light. Visual jefferson are full to confrontation. Extraocular movements are intact. There is no nystagmus. Facial sensation is intact. There is no facial asymmetry. Hearing is grossly intact. Uvula and palate are midline. Shoulder shrug is symmetric. Tongue protrudes midline. Motor: Strength is 5/5 throughout. Sensation: Grossly intact to light touch throughout. There is no extinction with double simultaneous stimulation. Coordination: Lokoap-lz-glwm and rapid alternating movements are intact. There is a left upper extremity intention tremor. There is no asterixis. There is no pronator drift. Deep tendon reflexes: 2+/4+ in the bilateral biceps, brachioradialis and left patellar reflexes. Plantar responses are not assessed Gait: Not assessed Results CT scan of the brain images have been personally viewed. I agree with the radiology report - Laboratory Findings CBC and BMP: 11/28/24 05:49 11/28/24 05:49 Abnormal Lab Findings: Abnormal Labs 11/26/24 11/26/24 11/26/24 15:02 15:02 15:02 WBC 13.1 H RBC Hgb Hct MCV MCHC 30.5 L Neutrophils # 11.3 H Neutrophils # (Manual) Lymphocytes # 0.9 L Eosinophils # PT 15.1 H INR 1.4 H Sodium 148 H Chloride 108 H BUN 29 H Creatinine 0.63 L BUN/Creatinine Ratio Glucose 184 H POC Glucose (mg/dL) Plasma Lactic Acid [place] Calcium Alkaline Phosphatase 261 H Total Protein Albumin 3.3 L Albumin/Globulin Ratio Ur Specific [place] Urine Protein Urine Glucose (UA) Urine Ketones 11/26/24 11/26/24 11/26/24 15:02 16:25 18:19 WBC RBC Hgb Hct MCV MCHC Neutrophils # Neutrophils # (Manual) Lymphocytes # Eosinophils # PT INR Sodium Chloride BUN Creatinine BUN/Creatinine Ratio Glucose POC Glucose (mg/dL) Plasma Lactic Acid [place] 3.6 H* 2.5 H* Calcium Alkaline Phosphatase Total Protein Albumin Albumin/Globulin Ratio Ur Specific [place] 1.046 H Urine Protein Trace H Urine Glucose (UA) 4+ H Urine Ketones 1+ H 11/27/24 11/27/24 11/27/24 11:03 11:03 11:32 WBC 11.3 H RBC 3.58 L Hgb 10.3 L D Hct 34.8 L MCV MCHC 29.6 L Neutrophils # Neutrophils # (Manual) 9.38 H Lymphocytes # Eosinophils # PT INR Sodium Chloride 109 H BUN 24 H Creatinine 0.53 L BUN/Creatinine Ratio Glucose POC Glucose (mg/dL) 334 H Plasma Lactic Acid [place] Calcium Alkaline Phosphatase Total Protein Albumin Albumin/Globulin Ratio Ur Specific [place] Urine Protein Urine Glucose (UA) Urine Ketones 11/28/24 11/28/24 11/28/24 03:00 05:49 05:49 WBC 10.99 H RBC 3.51 L Hgb 10.3 L Hct 34.5 L MCV 98.3 H MCHC 29.9 L Neutrophils # 8.64 H Neutrophils # (Manual) Lymphocytes # Eosinophils # 0.42 H PT INR Sodium Chloride 110 H BUN Creatinine 0.5 L BUN/Creatinine Ratio 38.60 H Glucose 60 L POC Glucose (mg/dL) 69 L Plasma Lactic Acid [place] Calcium 8.1 L Alkaline Phosphatase 183 H Total Protein 5.7 L Albumin 2.4 L Albumin/Globulin Ratio 0.73 L Ur Specific [place] Urine Protein Urine Glucose (UA) Urine Ketones 11/28/24 06:08 WBC RBC Hgb Hct MCV MCHC Neutrophils # Neutrophils # (Manual) Lymphocytes # Eosinophils # PT INR Sodium Chloride BUN Creatinine BUN/Creatinine Ratio Glucose POC Glucose (mg/dL) 68 L Plasma Lactic Acid [place] Calcium Alkaline Phosphatase Total Protein Albumin Albumin/Globulin Ratio Ur Specific [place] Urine Protein Urine Glucose (UA) Urine Ketones Assessment and Plan Assessment: 1. Patient is a very pleasant 74-year-old male who presented to the emergency department with reports of decrease in mental status, fever and cough. His examination shows no signs of lateralizing features, consistent with cerebral ischemia. In review of his laboratory data and chest x-ray, patient likely was suffering from hypoxia or hypercapnia, therefore resulting in increase in mental status-hypoxic/toxic/metabolic encephalopathy 2. History of poorly controlled diabetes mellitus 3. History of peripheral arterial disease status post right AKA Plan: 1. Continue supportive care and treatment of pneumonia 2. Consider speech therapy evaluation regarding swallowing 3. No further neurologic intervention is needed at this time. Neurology will sign off. Please call with questions or concerns Thank you for allowing us to participate in care of this patient Time with Patient: Greater than 30 (60 minutes were spent caring for this patient today including, obtaining history, examining the patient, reviewing imaging, chart documentation, labs, placing orders and creating this note)
[2024-11-28 16:42] LABS: Glucose,Whole Blood 101 mg/dL (70-110)
[2024-11-28 20:54] LABS: Glucose,Whole Blood 86 mg/dL (70-110)
[2024-11-29 04:02] LABS: Glucose,Whole Blood 82 mg/dL (70-110)
[2024-11-29 06:13] LABS: Glucose,Whole Blood 95 mg/dL (70-110)
--- NOTE | 2024-11-29 09:04 | P.GSCN ---
History of Present Illness Consult date: 11/29/24 Reason for Consult: Post AKA Requesting physician: Marco Kang History of present illness: This is a pleasant 74-year-old male well-known to vascular surgical services who was sent to the emergency department from nursing facility for concerns for decreased mental status 3 days ago. Patient was admitted for aspiration pneumonia. Patient has history of right lower extremity ischemia with nonhealing wound status post znhmf-yah-wrjm amputation on 11/12/2024. Apparently when patient had presented to the emergency department his trev were still in place. Apparently patient has not had his postop follow-up with Dr. June. Patient is seen this morning, he is resting comfortably. Right kafpn-bcd-rtha amputation incision well-approximated, trev have been removed and 3 Steri- Strips are in place. Review of Systems A 14 point review systems was completed all pertinent positives and negatives as stated in the HPI. Past Medical History Past Medical History: Diabetes Mellitus, GI Bleed, Hearing Disorder / Deafness Additional Past Medical History / Comment(s): unhealing 2 wounds left foot -from rubbing on medical boot, HX of Diverticultis. Type IIDiabetic. [place]. Perforated ulcer. History of Any Multi-Drug Resistant Organisms: None Reported Past Surgical History: Hernia Repair Additional Past Surgical History / Comment(s): Hernia at age 3. Stomach surgery. Colonoscopy,amputation 2nd digit left foot. Recent amputation of the 5th digit foot -May 2024. above knee amputation Past Anesthesia/Blood Transfusion Reactions: No Reported Reaction Additional Past Anesthesia/Blood Transfusion Reaction / Comm: no hx blood transfusion Past Psychological History: No Psychological Hx Reported Smoking Status: Current every day smoker Past Alcohol Use History: Occasional Additional Past Alcohol Use History / Comment(s): Smokes approx. 1/2ppd, started smoking at age 11. Past Drug Use History: None Reported - Past Family History Sister(s) Family Medical History: Cancer Additional Family Medical History / Comment(s): Breast cancer Medications and Allergies Home Medications Medication Instructions Recorded Confirmed Type Acetaminophen [Tylenol Arthritis] 650 mg PO Q6H PRN 11/10/24 11/26/24 History Aspirin 81 mg PO DAILY@0800 11/10/24 11/26/24 History Atorvastatin [Lipitor] 40 mg PO DAILY@0811/10/24 11/26/24 History Dapagliflozin Propanediol [Farxiga] 10 mg PO DAILY@0800 11/10/24 11/26/24 History INSULIN LISPRO (humaLOG) [humaLOG] See Protocol SQ TID@0700,1100,1600 11/10/24 11/26/24 History Insulin Glargine,Hum.rec.anlog 24 units SQ HS@2130 11/10/24 11/26/24 History [Lantus Solostar Pen] Lidocaine 5% Cream 1 applic TOPICAL WE@0800 11/10/24 11/26/24 History Losartan [Cozaar] 12.5 mg PO DAILY@0800 11/10/24 11/26/24 History Magic Butt Paste 1 applic TOPICAL TID@0800,1200,1700 11/10/24 11/26/24 History Magnesium Hydroxide [Milk of 7,200 mg PO DAILY PRN 11/10/24 11/26/24 History Magnesia Concentrate] Na Phos,M-B/Na Phos,Di-Ba [Fleet 133 ml RECTAL DAILY PRN 11/10/24 11/26/24 History Adult] Nicotine 14Mg/24Hr Patch [Habitrol] 1 patch TRANSDERM DAILY@0800 11/10/24 11/26/24 History Pantoprazole [Protonix] 40 mg PO DAILY@0600 11/10/24 11/26/24 History Rivaroxaban [Xarelto] 2.5 mg PO BID@0800,1700 11/10/24 11/26/24 History bisacodyL [Dulcolax] 10 mg RECTAL DAILY PRN 11/10/24 11/26/24 History HYDROcodone/APAP 5-325MG [[place] 1 tab PO Q4-6H PRN 11/26/24 11/26/24 History 5-325] Ipratropium-Albuterol Nebulize 3 ml INHALATION RT-Q6H PRN 11/26/24 11/26/24 History [Duoneb 0.5 mg-3 mg/3 ml Soln] Metoprolol Succinate (ER) [Toprol 50 mg PO DAILY@0800 11/26/24 11/26/24 History Xl] [place] Shake 1 dose PO TID@0800,1200,1700 11/26/24 11/26/24 History Mirtazapine 7.5 mg PO HS@2100 11/26/24 11/26/24 History Mucinex Fast Max Chest Congestion 600 mg PO BID@0800,1700 11/26/24 11/26/24 History Ms Oral Liquid Allergies Allergy/AdvReac Type Severity Reaction Status Date / Time No Known Allergies Allergy Verified 11/26/24 19:54 Surgical - Exam Vital Signs Temp Pulse Resp BP Pulse Ox 100.0 F H 120 H 14 114/73 95 11/26/24 14:35 11/26/24 14:35 11/26/24 14:35 11/26/24 14:35 11/26/24 14:35 General appearance: The patient is resting, appears in no acute distress. HET: Head is normocephalic and atraumatic. Neck: Supple. Heart: Regular. Lungs: Equal expansion, normal respiratory effort. Abdomen: Soft, nontender, nondistended. Extremities: Right yxzvb-xpi-rkxp amputation surgical incision well-approximated with with 3 Steri-Strips in place. There is a small area medial aspect and middle of incision that is slightly open. No drainage noted. No erythema. Stump is warm. Neurological: Patient is resting, alert. Results - Labs 11/28/24 05:49 11/28/24 05:49 Abnormal Lab Results - Last 24 Hours (Table) 11/28/24 11/28/24 Range/Units 05:49 05:49 WBC 10.99 H (4.50-10.00) X 10*3/uL RBC 3.51 L (4.40-5.60) X 10*6/uL Hgb 10.3 L (13.0-17.0) g/dL Hct 34.5 L (39.6-50.0) % MCV 98.3 H (80.0-97.0) FL MCHC 29.9 L (32.0-37.0) g/dL Neutrophils # 8.64 H (1.80-7.70) X 10*3/uL Eosinophils # 0.42 H (0.04-0.35) X 10*3/uL Chloride 110 H (96-109) mmol/L Creatinine 0.5 L (0.6-1.5) mg/dL BUN/Creatinine Ratio 38.60 H (12.00-20.00) Ratio Glucose 60 L (70-110) mg/dL Calcium 8.1 L (8.7-10.3) mg/dL Alkaline Phosphatase 183 H (41-126) U/L Total Protein 5.7 L (6.2-8.2) g/dL Albumin 2.4 L (3.8-4.9) g/dL Albumin/Globulin Ratio 0.73 L (1.60-3.17) Ratio Microbiology - Last 24 Hours (Table) 11/26/24 15:02 Blood Culture - Preliminary Blood Diabetes panel 11/28/24 Range/Units 05:49 Sodium 145 (135-145) mmol/L Potassium 3.5 (3.5-5.5) mmol/L Chloride 110 H (96-109) mmol/L Carbon Dioxide 24.8 (21.6-31.8) mmol/L BUN 19.3 (9.0-27.0) mg/dL Creatinine 0.5 L (0.6-1.5) mg/dL Glucose 60 L (70-110) mg/dL Calcium 8.1 L (8.7-10.3) mg/dL AST 28 (14-35) U/L ALT 14 (10-49) U/L Alkaline Phosphatase 183 H (41-126) U/L Total Protein 5.7 L (6.2-8.2) g/dL Albumin 2.4 L (3.8-4.9) g/dL Calcium panel 11/28/24 Range/Units 05:49 Calcium 8.1 L (8.7-10.3) mg/dL Albumin 2.4 L (3.8-4.9) g/dL Pituitary panel 11/28/24 Range/Units 05:49 Sodium 145 (135-145) mmol/L Potassium 3.5 (3.5-5.5) mmol/L Chloride 110 H (96-109) mmol/L Carbon Dioxide 24.8 (21.6-31.8) mmol/L BUN 19.3 (9.0-27.0) mg/dL Creatinine 0.5 L (0.6-1.5) mg/dL Glucose 60 L (70-110) mg/dL Calcium 8.1 L (8.7-10.3) mg/dL Adrenal panel 11/28/24 Range/Units 05:49 Sodium 145 (135-145) mmol/L Potassium 3.5 (3.5-5.5) mmol/L Chloride 110 H (96-109) mmol/L Carbon Dioxide 24.8 (21.6-31.8) mmol/L BUN 19.3 (9.0-27.0) mg/dL Creatinine 0.5 L (0.6-1.5) mg/dL Glucose 60 L (70-110) mg/dL Calcium 8.1 L (8.7-10.3) mg/dL Total Bilirubin 0.4 (0.3-1.2) mg/dL AST 28 (14-35) U/L ALT 14 (10-49) U/L Alkaline Phosphatase 183 H (41-126) U/L Total Protein 5.7 L (6.2-8.2) g/dL Albumin 2.4 L (3.8-4.9) g/dL Assessment and Plan Assessment: 1. History of infected nonhealing wound to the right foot status post right juimj-myp-bigm amputation, well-healed 2. Severe peripheral arterial disease 3. Altered mental status changes 4. Bilateral pneumonia 5. Diabetes mellitus Plan: Right bmsxu-ypu-arqy amputation surgical incision examined, healing well. Trev have been removed. There is no further indication for any vascular surgical intervention. He can follow-up with Dr. June as needed. Continue rest of medical management per primary medical team. Thank you for this consultation, we will sign off at this time. The impression and plan of care has been dictated as directed. I performed a history and examination of this patient, discussed the same with the dictator. I agree with the dictator's note ,documented as a scribe. Any additional findings or plans will be noted.
[2024-11-29 09:23] LABS: Basophils # (A) 0.02 X 10*3/uL (0.00-0.10); Basophils % (A) 0.2 %; Eosinophils # (A) 0.37 X 10*3/uL (0.04-0.35); Eosinophils % (A) 3.8 %; HCT 36.8 % (39.6-50.0); HGB 10.7 g/dL (13.0-17.0); Lymphocytes # (A) 1.22 X 10*3/uL (0.90-5.00); Lymphocytes % (A) 12.6 %; MCH 28.3 pg (27.0-32.0); MCHC 29.1 g/dL (32.0-37.0); MCV 97.4 FL (80.0-97.0); Monocytes # (A) 0.56 X 10*3/uL (0.20-1.00); Monocytes % (A) 5.8 %; NRBC Per 100 WBC 0 X 10*3/uL (0.00-0.01); Neutrophils # (A) 7.47 X 10*3/uL (1.80-7.70); Neutrophils % (A) 77.2 %; Platelet Count 275 X 10*3/uL (140-440); RBC 3.78 X 10*6/uL (4.40-5.60); RDW 13.2 % (11.5-14.5); WBC 9.68 X 10*3/uL (4.50-10.00)
--- NOTE | 2024-11-29 09:51 | XR ---
EXAMINATION TYPE: XR chest 1V DATE OF EXAM: 11/29/2024 7:15 AM COMPARISON: 11/27/2024 CLINICAL INDICATION: Male, 74 years old with history of Follow up Bilateral [place], TECHNIQUE: XR chest 1V views of the chest are obtained. FINDINGS: Demonstrated are scattered senescent parenchymal change. Basilar infiltrates are increasing in the interval. Correlate for underlying pneumonia. The heart is stable. Hilar and mediastinal structures are within normal limits. Degenerative changes are seen of the dorsal spine. IMPRESSION: 1. Basilar infiltrates are increasing in the interval. Correlate for underlying pneumonia. [facility], , 11/29/2024 9:48 AM
[2024-11-29 10:26] LABS: Magnesium 1.8 mg/dL (1.5-2.4)
[2024-11-29 10:32] LABS: ALT 19 U/L (10-49); AST 42 U/L (14-35); Albumin 2.4 g/dL (3.8-4.9); Albumin/Globulin Ratio 0.71 Ratio (1.60-3.17); Alkaline Phosphatase 250 U/L (41-126); Blood Urea Nitrogen 12.3 mg/dL (9.0-27.0); Calcium 7.9 mg/dL (8.7-10.3); Carbon Dioxide 22.2 mmol/L (21.6-31.8); Chloride 108 mmol/L (96-109); Globulin 3.4 g/dL (1.6-3.3); Glucose 87 mg/dL (70-110); Potassium 3.8 mmol/L (3.5-5.5); Sodium 140 mmol/L (135-145); Total Bilirubin 0.5 mg/dL (0.3-1.2); Total Protein 5.8 g/dL (6.2-8.2)
[2024-11-29 11:20] LABS: Glucose,Whole Blood 99 mg/dL (70-110)
[2024-11-29] MEDS: VANCOMYCIN TROUGH DUE 1 EACH MISC MISCELLANE ONE (11:47)
[2024-11-29] MEDS: VANCOMYCIN 1,250 MG in SODIUM CHLORIDE 0.9% 250 ML IVPB SCH (12:57)
--- NOTE | 2024-11-29 13:15 | P.PN ---
Subjective Progress Note Date: 11/29/24 HISTORY OF PRESENT ILLNESS: This is a 74-year-old male with a previous medical history significant for hy pertension and hypertensive Vascular disease, mixed hyperlipidemia, diabetes mellitus type 2, with diabetic polyneuropathy, history of severe peripheral artery occlusive disease, status post revascularization of the right tibial vessel because of a nonhealing right great toe osteomyelitis, he ended up going for right great toe amputation in the past, because of nonhealing he was gone for right above-knee amputation that was done by Dr. June on 11/12/2024 and the patient was sent back to [facility] for physical therapy rehabilitation, while he was at [facility] yesterday patient apparently has some trouble swallowing the food, apparently had choked on his food, he had an episode of increased shortn ess of breath, he woke up in the morning with increased shortness of breath, with oxygenation dropped to 78%, chest x-ray showed evidence of bibasilar infiltrates, he was sent to the ER for evaluation, he was found to have bibasilar infiltrate likely aspiration pneumonia likely gram-negative pneumonia, patient initially was started on Zithromax Rocephin that was taken off, he was placed on Zosyn I will add vancomycin with pharmacy to dose the peak and trough, sputum culture will be obtained, pulmonary consultation was obtained, continue with DuoNeb 3 mL nebulization 4 times every day, follow-up with the patient very closely, patient continues to have trev in the right above-knee amputation 11/28: Patient is laying down in bed in no apparent distress, he is not eating much, he is having difficulty swallowing, speech therapy consulted, patient will be switched to D5 half-normal saline with 40 KCl at 75 cc an hour, continue to follow-up with the patient very closely, continue vancomycin with pharmacy to dose its peak and trough, continue also Zosyn, sputum culture, blood culture, follow-up with the patient very closely continue DuoNeb nebulization 4 times every day, repeat chest x-ray in the next 24 hours, pulmonary is following as well 11/29: Patient sitting up in bed in no apparent distress, he is feeling better today, he continues to have issues with swallowing, speech therapy evaluate the patient at the bedside today will need to go for modified barium swallow today, continue IV vancomycin as well as Zosyn, repeated chest x-ray today still pending, follow-up with the patient very closely, continue nebulized treatment, continue oxygen support, we will follow-up with the patient very closely. REVIEW OF SYSTEMS: Constitutional: No documented fever, no chills, no night sweats. No weight change. No weakness, fatigue or lethargy. No daytime sleepiness. EENT: No headache. No blurred vision or double vision, no loss of vision. No loss of Hearing, no ringing in the ears, no dizziness. No nasal drainage or congestion. No epistaxis. No sore throat. Lungs: positive for shortness of breath, occasional cough, minimal sputum production. No wheezing. Reports dyspnea with activity. Cardiovascular: No chest pain, no lower extremity edema. No palpitations. No paroxysmal nocturnal dyspnea. No orthopnea. No lightheadedness or dizziness. No syncopal episodes. Abdominal: Reports abdominal pain. No nausea, vomiting. No diarrhea. No constipation. No bloody or tarry stools reports loss of appetite. Genitourinary: No dysuria, increased frequency, urgency. No urinary retention. Musculoskeletal: No myalgias. positive for muscle weakness, positive for gait dysfunction, no frequent falls. No back pain. No neck pain. Integumentary: Right above-knee amputation wound with trev in place, no lesions. No rash or pruritus. No unusual bruising. No change in hair or nails. Neurologic: No aphasia. No facial droop. No change in mentation. No head injury. No headache. No paralysis. No paresthesia. Psychiatric: positive for depression. No anxiety. No mood swings. Endocrine: positive for abnormal blood sugars. No weight change. PHYSICAL EXAMINATION: General: 74-year-old male laying down in bed in no apparent distress. HEENT: Head is atraumatic, normocephalic, pupils were equal round reactive to light and recommendation, extraocular muscle movement were intact, sclera nonicteric, conjunctivae were pale, mucous membranes of the mouth are somewhat dry. Neck: Supple, no JVP, normal carotid upstroke bilaterally, no lymphadenopathy. Chest: Decreased breath sounds at the bases, few rhonchi, minimal expiratory wheezes, no chest wall tenderness, no intercostal retractions. Heart: First heart sound is normal, second heart sounds normal there is systolic ejection murmur 2 over systolic in the left sternal border. Abdomen: Soft, nontender, nondistended, positive bowel sounds. Extremities: There is right above-knee amputation with trev in place, left lower extremity with second and fifth digit amputation, significant dryness, dorsalis place in the left side p+1. Neurologic examination: Patient is awake alert and oriented x3, cranial nerves II-12 appear grossly intact, muscle power were 3 out of 5 in upper extremities and 2 out of 5 in left lower extremity ASSESSMENT AND PLAN: 1. Bibasilar likely gram-negative pneumonia possible aspiration with sepsis. Continue patient on Zosyn 3.375 g IV every 8 hours, continue vancomycin 1000 mg IV piggyback every 12 hours, sputum culture still pending, blood culture will be done, urine Legionella antigen, continue DuoNeb 3 mL nebulization 4 times every day, continue with Mucinex twice every day, follow-up with the patient very closely, pulmonary is following. 2. Hypertension and hypertensive cardiovascular disease. Continue patient on metoprolol 50 mg once every day, losartan 12.5 mg every day, monitor the patient blood pressure very closely. 3. Mixed hyperlipidemia. Continue patient on atorvastatin 40 mg once every day, monitor the patient with panel, keep LDL 55-70. 4. Diabetes mellitus type 2 with recurrent hypoglycemia as the patient is not eating much, change IV fluid to D5 half-normal saline with 20 KCl at 75 cc an hour, discontinue Lantus, continue sliding scale, continue Farxiga 10 mg once every day. Follow-up with the patient very closely 5. Severe PAD status post right above-knee amputation continue Xarelto 2.5 mg orally twice every day, continue atorvastatin 40 mg once every day for secondary prevention. Consult vascular team for possible staple removal. 6. History of left basal ganglia infarct. Continue patient on aspirin 81 g once every day, atorvastatin 40 mg once every day, for secondary stroke prevention, tight control of diabetes. In view of his dysphagia consult neurology. 7. History of COPD. Continue patient on DuoNeb 3 mL nebulization 4 times every day, oxygen support as needed. 8. Depression continue patient on mirtazapine 7.5 mg orally once at bedtime. 9. Dysphagia. Patient should be evaluated by speech therapy, continue with nectar thick diet. Consult neurology. 10. Medical debility. Continue with physical therapy evaluation. 11. DVT prophylaxis. Continue Xarelto 2.5 mg orally twice every day. 12. GI prophylaxis. Continue patient on Protonix 40 mg once every day. 13. Overall prognosis is very guarded. Objective - Vital Signs Vital signs: Vital Signs Temp 98.3 F 11/29/24 00:00 Pulse 66 11/29/24 00:00 Resp 17 11/29/24 00:00 BP 138/78 11/29/24 00:00 Pulse Ox 95 11/29/24 02:26 FiO2 Intake & Output 11/28/24 11/28/24 11/29/24 06:59 18:59 06:59 Output Total 300 250 400 Balance -300 -250 -400 Output: Urine 300 250 400 Other: Voiding Method External Catheter External Catheter # Bowel Movements 0 - Labs CBC & Chem 7: 11/28/24 05:49 11/28/24 05:49 Labs: Abnormal Lab Results - Last 24 Hours (Table) 11/28/24 11/28/24 Range/Units 05:49 05:49 WBC 10.99 H (4.50-10.00) X 10*3/uL RBC 3.51 L (4.40-5.60) X 10*6/uL Hgb 10.3 L (13.0-17.0) g/dL Hct 34.5 L (39.6-50.0) % MCV 98.3 H (80.0-97.0) FL MCHC 29.9 L (32.0-37.0) g/dL Neutrophils # 8.64 H (1.80-7.70) X 10*3/uL Eosinophils # 0.42 H (0.04-0.35) X 10*3/uL Chloride 110 H (96-109) mmol/L Creatinine 0.5 L (0.6-1.5) mg/dL BUN/Creatinine Ratio 38.60 H (12.00-20.00) Ratio Glucose 60 L (70-110) mg/dL Calcium 8.1 L (8.7-10.3) mg/dL Alkaline Phosphatase 183 H (41-126) U/L Total Protein 5.7 L (6.2-8.2) g/dL Albumin 2.4 L (3.8-4.9) g/dL Albumin/Globulin Ratio 0.73 L (1.60-3.17) Ratio Microbiology - Last 24 Hours (Table) 11/26/24 15:02 Blood Culture - Preliminary Blood
--- NOTE | 2024-11-29 15:29 | P.PN ---
Subjective Progress Note Date: 11/29/24 74-year-old medication being seen for pneumonia. The patient has multiple medical problems or comorbidities. The patient has history of peripheral vascular disease with a nonhealing right toe osteomyelitis and the patient has undergone previous toe amputation ultimately his infection progressed and the patient required a right above-knee amputation that was done by vascular surgery on 11/12/2024 and following that he was discharged to [facility] for further rehabilitation. He has other comorbidities including diabetes mellitus type 2 with diabetic peripheral neuropathy in addition to peripheral vascular disease, hypertension and hyperlipidemia. The patient presented to us with increased cough and congestion and some shortness of breath and hypoxemia. Chest x-ray showed bilateral lower lobe pneumonia. Apparently has been having difficulty swallowing and choking on food material. Aspiration was suspected. Initially , he was started on Rocephin and and Zithromax. Respiratory IV Zosyn and vancomycin was also added regarding his pneumonia based on his comorbidities and previous hospitalizations. Currently, the patient is hemodynamically stable on 2 L of oxygen by nasal cannula. The white cell count is at 11 with a hemoglobin of 10.3 and a platelet count of 289. BUN 24 with a creatinine of 0.5. No altered mentation. He has some oropharyngeal candidiasis. He has poor dentit ion On 11/28/2024, the patient is being seen for a follow-up. He is calm and comfortable. He has no significant complaints. This morning, his cough is less congested. He is afebrile. Maintained on 2 L of oxygen by nasal cannula with pulse ox of 98%. No other significant events overnight. The patient is seen today November 29, 2024 in follow-up on the regular medical floor. He is currently sitting up at the bedside. Working with physical therapy. Awake and alert in no acute distress. Maintaining O2 saturations in the 90s on room air. Chest x-ray continues to show basilar infiltrates. White count 9.6. Hemoglobin 10.7. Platelets 275. Sodium 140. Potassium 3.8. Bicarb 22. BUN 12. Creatinine 0.5. Glucose 87. Vancomycin trough 11.5. Urine Legionella antigen negative. He remains on DuoNeb and elations as needed. Receiving D5W and a half normal saline with 20 KCl at 75 mL/h. Continued on vancomycin and Zosyn. Anticoagulated with Xarelto. Objective - Vital Signs Vital signs: Vital Signs Temp 98 F 03/17/25 13:41 Pulse 84 11/29/24 13:41 Resp 18 11/29/24 13:41 BP 120/74 11/29/24 13:41 Pulse Ox 93 L 11/29/24 13:41 FiO2 Intake & Output 11/28/24 11/29/24 11/29/24 18:59 06:59 18:59 Intake Total 220 Output Total 250 400 900 Balance -250 -400 -680 Weight 57.243 kg Intake: Oral 220 Output: Urine 250 400 900 Other: Voiding Method External Catheter External Catheter # Bowel Movements 0 - Exam GENERAL EXAM: Alert, 74-year-old male, working with physical therapy, on room air, comfortable in no apparent distress. HEAD: Normocephalic. EYES: Normal reaction of pupils, equal size. NOSE: Clear with pink turbinates. THROAT: No erythema or exudates. NECK: No masses, no JVD. CHEST: No chest wall deformity. LUNGS: Equal air entry with few scattered rhonchi. CVS: S1 and S2 normal with no audible murmur, regular rhythm. ABDOMEN: No hepatosplenomegaly, normal bowel sounds, no guarding or rigidity. SPINE: No scoliosis or deformity SKIN: No rashes CENTRAL NERVOUS SYSTEM: No focal deficits, tone is normal in all 4 extremities. EXTREMITIES: Right [id number] amputation surgical site clean and dry. There is no peripheral edema. No clubbing, no cyanosis. Peripheral pulses are intact. - Labs CBC & Chem 7: 11/29/24 04:00 11/29/24 04:00 Labs: Abnormal Lab Results - Last 24 Hours (Table) 11/29/24 11/29/24 Range/Units 04:00 04:00 RBC 3.78 L (4.40-5.60) X 10*6/uL Hgb 10.7 L (13.0-17.0) g/dL Hct 36.8 L (39.6-50.0) % MCV 97.4 H (80.0-97.0) FL MCHC 29.1 L (32.0-37.0) g/dL Eosinophils # 0.37 H (0.04-0.35) X 10*3/uL Creatinine 0.5 L (0.6-1.5) mg/dL BUN/Creatinine Ratio 24.60 H (12.00-20.00) Ratio Calcium 7.9 L (8.7-10.3) mg/dL AST 42 H (14-35) U/L Alkaline Phosphatase 250 H (41-126) U/L Total Protein 5.8 L (6.2-8.2) g/dL Albumin 2.4 L (3.8-4.9) g/dL Globulin 3.4 H (1.6-3.3) g/dL Albumin/Globulin Ratio 0.71 L (1.60-3.17) Ratio Microbiology - Last 24 Hours (Table) 11/26/24 15:02 Blood Culture - Preliminary Blood Assessment and Plan Assessment: Acute bilateral lower lobe pneumonia, likely aspiration. The patient has poor dentition. The patient has also dysphagia and difficulty swallowing and choking of food material. Aspiration pneumonia versus hospital-acquired pneumonia is being considered on this patient. The patient is currently on a combination of Zosyn and vancomycin. Acute hypoxic respiratory failure secondary to above, recovered and on room air oxygen Severe PVOD and the patient has undergone a previous right above-knee amputation on November 12, 2024 Hypertension Diabetes mellitus type 2 along with complication of diabetes mellitus including peripheral neuropathy History of left basal ganglia infarct/CVA COPD Depression Chronic dysphagia Plan: The patient was seen and evaluated Chest x-ray, labs and medications reviewed Remains on vancomycin and Zosyn Continued on bronchodilators Anticoagulated with Xarelto Protonix for GI prophylaxis Stable and on room air Plan is to return to [facility] at discharge I have personally seen and examined the patient, performed the documentation and the assessment and plan as written. Number of minutes spent on the visit: 10 Dictation was produced using [employer] dictation software. Please excuse any grammatical, word or spelling errors.
[2024-11-29 16:25] LABS: Glucose,Whole Blood 85 mg/dL (70-110)
[2024-11-29 20:47] LABS: Glucose,Whole Blood 94 mg/dL (70-110)
[2024-11-30 03:19] LABS: ALT 20 U/L (4-49); AST 37 U/L (17-59); African American GFR (CKD) >90 (>60 ml/min/1.73 sqM); Albumin 2.5 g/dL (3.5-5.0); Albumin/Globulin Ratio 0.7; Alkaline Phosphatase 265 U/L (38-126); Anion Gap 12 mmol/L; Blood Urea Nitrogen 6 mg/dL (9-20); Calcium 7.9 mg/dL (8.4-10.2); Carbon Dioxide 21 mmol/L (22-30); Chloride 105 mmol/L (98-107); Globulin 3.4 g/dL; Glucose 76 mg/dL (74-99); Non-African American GFR(CKD) >90 (>60 ml/min/1.73 sqM); Potassium 3.4 mmol/L (3.5-5.1); Sodium 138 mmol/L (137-145); Total Bilirubin 0.7 mg/dL (0.2-1.3); Total Protein 5.9 g/dL (6.3-8.2)
[2024-11-30 03:29] LABS: HCT 38.7 % (39.0-53.0); HGB 11.5 gm/dL (13.0-17.5); Hypochromasia Moderate; MCH 28.3 pg (25.0-35.0); MCHC 29.7 g/dL (31.0-37.0); MCV 95.2 fL (80.0-100.0); Mean Platelet Volume 9.6; Platelet Count 280 k/uL (150-450); RBC 4.07 m/uL (4.30-5.90); RDW 13.6 % (11.5-15.5); WBC 10.9 k/uL (3.8-10.6)
[2024-11-30 06:29] LABS: Glucose,Whole Blood 89 mg/dL (70-110)
[2024-11-30] MEDS: POTASSIUM CHLORIDE ER 20 MEQ TAB.ER PO STA (07:11)
[2024-11-30 08:43] LABS: Band Neutrophils % 1 %; Eosinophils # (M) 0.22 k/uL (0-0.7); Lymphocytes # (M) 0.98 k/uL (1.0-4.8); Monocytes # (M) 0.33 k/uL (0-1.0); Neutrophils % (M) 85 %; Nucleated Red Blood Cells 0 /100 WBC (0-0); Total Cells Counted 100
[2024-11-30] MEDS: POTASSIUM CHLORIDE 20 MEQ in WATER FOR INJECTION 1 100ML.BAG IVPB STA (09:11)
--- NOTE | 2024-11-30 10:39 | FL ---
EXAMINATION TYPE: FL barium swallow w video DATE OF EXAM: 11/30/2024 MODIFIED SWALLOW / DEGLUTITION STUDY CLINICAL HISTORY: Dysphagia. Rule out aspiration. TECHNIQUE: Deglutition study is performed utilizing thin liquid barium, honey and nectar thick liqui d barium, and barium thick pudding. 2 minutes 27 of fluoro time and 21 images obtained. Total dose area product (DAP) in uGy*m?, mGy*cm? (or similar): 83.49 COMPARISON: None. FINDINGS: The oral and pharyngeal phases show satisfactory initiation with poor propagation due to po or epiglottis movement. There is deep penetration and silent aspiration with all modalities tested. Moderate to severe pharyngeal residue was appreciated. IMPRESSION: Abnormal study with multiple consistencies showing silent aspiration. Please refer to speech therapist notes for further details if necessary. [facility], , 11/30/2024 10:36 AM
[2024-11-30 11:27] LABS: Glucose,Whole Blood 80 mg/dL (70-110)
--- NOTE | 2024-11-30 14:41 | P.CONS ---
History of Present Illness - Reason for Consult Consult date: 11/30/24 PEG tube placement Requesting physician: Marco Kang - Chief Complaint Aspiration pneumonia - History of Present Illness This is a pleasantly confused 74-year-old male with multiple comorbidities including peripheral arterial disease with previous amputations, coronary artery disease, diabetes mellitus, hypertension, hyperlipidemia, diabetic neuropathy who resides at [facility] and has been undergoing physical therapy for recent amputation apparently patient was having difficulty swallowing his food and subsequently later was found to have shortness of breath and hypoxia. Patient was admitted for bilateral pneumonia. Patient underwent barium swallow study with speech therapy with finding of aspiration of multiple consistencies. Speech therapy is recommending patient be n.p.o. with consideration for alternative feeding method. Gastroenterology was consulted for PEG tube placement. Patient is on Xarelto 2.5 mg twice daily and aspirin 81 mg. Xarelto last taken today Review of Systems REVIEW OF SYSTEMS: CARDIOPULMONARY: No chest pain or shortness of breath. Gastrointestinal: No abdominal pain. No nausea or vomiting. No hematemesis, coffee-ground emesis. No rectal bleeding, or melena. GENITOURINARY: No dysuria or hematuria. MUSCULOSKELETAL: Reports normal range of motion., Joint pain. SKIN: No rashes. No jaundice. ENDOCRINE: No chills, fevers. No excessive weight gain or loss. No polydipsia or polyuria. PSYCHIATRIC: Unremarkable. NEUROLOGY: No change in mental status. Denies dizziness, headache. ENT: Vision unremarkable. CONSTITUTIONAL: No recent weight loss. No fever, chills, night sweats. Past Medical History Past Medical History: Diabetes Mellitus, GI Bleed, Hearing Disorder / Deafness Additional Past Medical History / Comment(s): unhealing 2 wounds left foot -from rubbing on medical boot, HX of Diverticultis. Type IIDiabetic. CROW. Perforated ulcer. History of Any Multi-Drug Resistant Organisms: None Reported Past Surgical History: Hernia Repair Additional Past Surgical History / Comment(s): Hernia at age 3. Stomach surgery. Colonoscopy,amputation 2nd digit left foot. Recent amputation of the 5th digit foot -May 2024. above knee amputation Past Anesthesia/Blood Transfusion Reactions: No Reported Reaction Additional Past Anesthesia/Blood Transfusion Reaction / Comm: no hx blood transfusion Past Psychological History: No Psychological Hx Reported Smoking Status: Current every day smoker Past Alcohol Use History: Occasional Additional Past Alcohol Use History / Comment(s): Smokes approx. 1/2ppd, started smoking at age 11. Past Drug Use History: None Reported - Past Family History Sister(s) Family Medical History: Cancer Additional Family Medical History / Comment(s): Breast cancer Medications and Allergies Home Medications Medication Instructions Recorded Confirmed Type Acetaminophen [Tylenol Arthritis] 650 mg PO Q6H PRN 11/10/24 11/26/24 History Aspirin 81 mg PO DAILY@0800 11/10/24 11/26/24 History Atorvastatin [Lipitor] 40 mg PO DAILY@0800 11/10/24 11/26/24 History Dapagliflozin Propanediol [Farxiga] 10 mg PO DAILY@0800 11/10/24 11/26/24 History INSULIN LISPRO (humaLOG) [humaLOG] See Protocol SQ TID@0700,1100,1600 11/10/24 11/26/24 History Insulin Glargine,Hum.rec.anlog 24 units SQ HS@2130 11/10/24 11/26/24 History [Lantus Solostar Pen] Lidocaine 5% Cream 1 applic TOPICAL WE@0800 11/10/24 11/26/24 History Losartan [Cozaar] 12.5 mg PO DAILY@0800 11/10/24 11/26/24 History Magic Butt Paste 1 applic TOPICAL TID@0800,1200,1700 11/10/24 11/26/24 History Magnesium Hydroxide [Milk of 7,200 mg PO DAILY PRN 11/10/24 11/26/24 History Magnesia Concentrate] Na Phos,M-B/Na Phos,Di-Ba [Fleet 133 ml RECTAL DAILY PRN 11/10/24 11/26/24 History Adult] Nicotine 14Mg/24Hr Patch [Habitrol] 1 patch TRANSDERM DAILY@0800 11/10/24 11/26/24 History Pantoprazole [Protonix] 40 mg PO DAILY@0600 11/10/24 11/26/24 History Rivaroxaban [Xarelto] 2.5 mg PO BID@0800,1700 11/10/24 11/26/24 History bisacodyL [Dulcolax] 10 mg RECTAL DAILY PRN 11/10/24 11/26/24 History HYDROcodone/APAP 5-325MG [[place] 1 tab PO Q4-6H PRN 11/26/24 11/26/24 History 5-325] Ipratropium-Albuterol Nebulize 3 ml INHALATION RT-Q6H PRN 11/26/24 11/26/24 History [Duoneb 0.5 mg-3 mg/3 ml Soln] Metoprolol Succinate (ER) [Toprol 50 mg PO DAILY@0800 11/26/24 11/26/24 History Xl] Mighty Shake 1 dose PO TID@0800,1200,1700 11/26/24 11/26/24 History Mirtazapine 7.5 mg PO HS@2100 11/26/24 11/26/24 History Mucinex Fast Max Chest Congestion 600 mg PO BID@0800,1700 11/26/24 11/26/24 History Ms Oral Liquid Allergies Allergy/AdvReac Type Severity Reaction Status Date / Time No Known Allergies Allergy Verified 11/26/24 19:54 Physical Exam Vitals: Vital Signs Temp Pulse Resp BP BP Pulse Ox 11/30/24 10:51 75 20 11/30/24 06:49 98.2 F 75 20 126/74 100 11/30/24 02:00 97.4 F L 100 20 168/90 98 11/29/24 13:41 98 F 84 18 120/74 93 L Intake and Output 11/29/24 11/30/24 11/30/24 22:59 06:59 14:59 Intake Total 300 Output Total 1350 600 Balance -1350 -300 Intake: Oral 300 Output: Urine 1350 600 Other: Voiding Method External Catheter External Catheter # Voids 1 # Bowel Movements 1 1 General appearance: The patient is alert, oriented, appears in no acute distress. HET: Head is normocephalic and atraumatic. Conjunctiva pink. Sclera anicteric. Neck: Supple without lymphadenopathy. Trachea midline. Heart: Regular. Lungs: Equal expansion, normal respiratory effort. Abdomen: Soft, nontender, nondistended. Skin: No rashes. No jaundice. Extremities: Normal skin color and turgor. Right qqzwl-[id number] amputation. Neurological: No focal deficits. Alert and oriented x3. Results CBC & Chem 7: 11/30/24 02:41 11/30/24 02:41 Labs: Abnormal Lab Results - Last 24 Hours (Table) 11/30/24 11/30/24 Range/Units 02:41 02:41 WBC 10.9 H (3.8-10.6) k/uL RBC 4.07 L (4.30-5.90) m/uL Hgb 11.5 L (13.0-17.5) gm/dL Hct 38.7 L (39.0-53.0) % MCHC 29.7 L (31.0-37.0) g/dL Neutrophils # (Manual) 9.30 H (1.3-7.7) k/uL Lymphocytes # (Manual) 0.98 L (1.0-4.8) k/uL Potassium 3.4 L (3.5-5.1) mmol/L Carbon Dioxide 21 L (22-30) mmol/L BUN 6 L (9-20) mg/dL Creatinine 0.46 L (0.66-1.25) mg/dL Calcium 7.9 L (8.4-10.2) mg/dL Alkaline Phosphatase 265 H (38-126) U/L Total Protein 5.9 L (6.3-8.2) g/dL Albumin 2.5 L (3.5-5.0) g/dL Microbiology - Last 24 Hours (Table) 11/28/24 11:33 Blood Culture - Preliminary Blood 11/26/24 15:02 Blood Culture - Preliminary Blood 11/27/24 12:14 Nasal Screen MRSA/MSSA - Final Nasal Swab Staphylococcus aureus,Not MRSA Assessment and Plan (1) Aspiration into airway Narrative/Plan: 74-year-old male with multiple comorbidities with significant peripheral vascular disease who has undergone revascularization and amputation for nonhealing wounds has been admitted for concerns for aspiration pneumonia. Patient underwent evaluation with speech therapy and barium swallow that showed aspiration with multiple consistencies. Concern is for ongoing aspiration unclear etiology, neurology is following for stroke workup. Patient is on anticoagulation will need to be discontinued prior to proceeding with EGD and PEG tube placement. Current Visit: Yes Status: Acute Code(s): T17.908A - UNSP FB IN RESP TRACT, PART UNSP CAUSING OTH INJURY, INIT SNOMED Code(s): 780409506 (2) Current use of long-term anticoagulation Current Visit: Yes Status: Acute Code(s): Z79.01 - [employer] (CURRENT) USE OF ANTICOAGULANTS SNOMED Code(s): 841173741 (3) Diabetes Current Visit: Yes Status: Acute Code(s): E11.9 - TYPE 2 DIABETES MELLITUS WITHOUT COMPLICATIONS SNOMED Code(s): 91037498 (4) History of right above knee amputation Current Visit: Yes Status: Acute Code(s): Z89.611 - ACQUIRED ABSENCE OF RIGHT LEG ABOVE KNEE SNOMED Code(s): 427578554044486 (5) Pneumonia Current Visit: Yes Status: Acute Code(s): J18.9 - PNEUMONIA, UNSPECIFIED ORGANISM SNOMED Code(s): 007991639 (6) Altered mental status Narrative/Plan: Patient is with altered mental status and alert and oriented x 1. Case management spoke to patient's daughter Zhang Hayward who states she will make medical decisions and believes her father would want to have the PEG tube done. Current Visit: Yes Status: Acute Code(s): R41.82 - ALTERED MENTAL STATUS, UNSPECIFIED SNOMED Code(s): 158326169 Plan: 1. Continue symptomatic and supportive care 2. Keep n.p.o. per recommendations from speech therapy 3. Hold anticoagulation 4. Patient will need consent obtained from family as he is not able to make medical decisions at this time 5. Consider conversation regarding possible palliative/hospice care. Will defer to primary care physician 4. Tentatively plan for EGD and PEG tube possibly or Friday of this week if patient and family chooses 5. Rest of medical management per primary medical team Thank you for this consultation, we will continue to follow. Dr. Aldair Munroe I agree with the dictator's note, documented as a scribe by Micki Franks.
--- NOTE | 2024-11-30 15:33 | P.PN ---
Subjective Progress Note Date: 11/30/24 74-year-old medication being seen for pneumonia. The patient has multiple medical problems or comorbidities. The patient has history of peripheral vascular disease with a nonhealing right toe osteomyelitis and the patient has undergone previous toe amputation ultimately his infection progressed and the patient required a right above-knee amputation that was done by vascular surgery on 11/12/2024 and following that he was discharged to [facility] for further rehabilitation. He has other comorbidities including diabetes mellitus type 2 with diabetic peripheral neuropathy in addition to peripheral vascular disease, hypertension and hyperlipidemia. The patient presented to us with increased cough and congestion and some shortness of breath and hypoxemia. Chest x-ray showed bilateral lower lobe pneumonia. Apparently has been having difficulty swallowing and choking on food material. Aspiration was suspected. Initially , he was started on Rocephin and and Zithromax. Respiratory IV Zosyn and vancomycin was also added regarding his pneumonia based on his comorbidities and previous hospitalizations. Currently, the patient is hemodynamically stable on 2 L of oxygen by nasal cannula. The white cell count is at 11 with a hemoglobin of 10.3 and a platelet count of 289. BUN 24 with a creatinine of 0.5. No altered mentation. He has some oropharyngeal candidiasis. He has poor dentit ion On 11/28/2024, the patient is being seen for a follow-up. He is calm and comfortable. He has no significant complaints. This morning, his cough is less congested. He is afebrile. Maintained on 2 L of oxygen by nasal cannula with pulse ox of 98%. No other significant events overnight. The patient is seen today November 29, 2024 in follow-up on the regular medical floor. He is currently sitting up at the bedside. Working with physical therapy. Awake and alert in no acute distress. Maintaining O2 saturations in the 90s on room air. Chest x-ray continues to show basilar infiltrates. White count 9.6. Hemoglobin 10.7. Platelets 275. Sodium 140. Potassium 3.8. Bicarb 22. BUN 12. Creatinine 0.5. Glucose 87. Vancomycin trough 11.5. Urine Legionella antigen negative. He remains on DuoNeb and elations as needed. Receiving D5W and a half normal saline with 20 KCl at 75 mL/h. Continued on vancomycin and Zosyn. Anticoagulated with Xarelto. Today November 30, 2024 in follow-up on the regular medical floor. He is currently sitting up in bed. Awake and alert in no acute distress. Maintaining good O2 saturations in the 90s on room air. He remains on bronchodilators as needed. Continued on Mucinex. Continued on Zosyn. Anticoagulated with Xarelto. Blood culture showing no growth to date. White count 10.9. Hemoglobin 11.5. Platelets 280. Sodium 138. Potassium 3.4. Bicarb 21. BUN 6. Creatinine 0.46. Glucose 76. Patient failed a swallow evaluation. May swallow evaluation. May need to be considered for PEG tube placement. Objective - Vital Signs Vital signs: Vital Signs Temp 98.1 F 11/30/24 13:41 Pulse 88 11/30/24 13:41 Resp 18 11/30/24 13:41 BP 118/63 11/30/24 13:41 Pulse Ox 94 L 11/30/24 13:41 FiO2 Intake & Output 11/29/24 11/30/24 11/30/24 18:59 06:59 18:59 Intake Total 220 300 Output Total 900 1350 600 Balance -680 -1350 -300 Weight 57.243 kg Intake: Oral 220 300 Output: Urine 900 1350 600 Other: Voiding Method External Catheter External Catheter External Catheter # Voids 2 1 # Bowel Movements 1 1 1 - Exam GENERAL EXAM: Alert, 74-year-old male, resting in bed, on room air, in no apparent distress. HEAD: Normocephalic. EYES: Normal reaction of pupils, equal size. NOSE: Clear with pink turbinates. THROAT: No erythema or exudates. NECK: No masses, no JVD. CHEST: No chest wall deformity. LUNGS: Equal air entry with few scattered rhonchi. CVS: S1 and S2 normal with no audible murmur, regular rhythm. ABDOMEN: No hepatosplenomegaly, normal bowel sounds, no guarding or rigidity. SPINE: No scoliosis or deformity SKIN: No rashes CENTRAL NERVOUS SYSTEM: No focal deficits, tone is normal in all 4 extremities. EXTREMITIES: Right ysbne-kzy-qejw amputation, surgical site clean and dry. There is no peripheral edema. No clubbing, no cyanosis. Peripheral pulses are intact. - Labs CBC & Chem 7: 11/30/24 02:41 11/30/24 02:41 Labs: Abnormal Lab Results - Last 24 Hours (Table) 11/30/24 11/30/24 Range/Units 02:41 02:41 WBC 10.9 H (3.8-10.6) k/uL RBC 4.07 L (4.30-5.90) m/uL Hgb 11.5 L (13.0-17.5) gm/dL Hct 38.7 L (39.0-53.0) % MCHC 29.7 L (31.0-37.0) g/dL Neutrophils # (Manual) 9.30 H (1.3-7.7) k/uL Lymphocytes # (Manual) 0.98 L (1.0-4.8) k/uL Potassium 3.4 L (3.5-5.1) mmol/L Carbon Dioxide 21 L (22-30) mmol/L BUN 6 L (9-20) mg/dL Creatinine 0.46 L (0.66-1.25) mg/dL Calcium 7.9 L (8.4-10.2) mg/dL Alkaline Phosphatase 265 H (38-126) U/L Total Protein 5.9 L (6.3-8.2) g/dL Albumin 2.5 L (3.5-5.0) g/dL Microbiology - Last 24 Hours (Table) 11/28/24 11:33 Blood Culture - Preliminary Blood 11/26/24 15:02 Blood Culture - Preliminary Blood 11/27/24 12:14 Nasal Screen MRSA/MSSA - Final Nasal Swab Staphylococcus aureus,Not MRSA Assessment and Plan Assessment: Acute bilateral lower lobe pneumonia, likely aspiration. The patient has poor dentition. The patient has also dysphagia and difficulty swallowing and choking of food material. Aspiration pneumonia versus hospital-acquired pneumonia is being considered on this patient. The patient is currently on Zosyn. The patient failed a swallow evaluation. May need to be considered for PEG tube Acute hypoxic respiratory failure secondary to above, recovered and on room air oxygen Severe PVOD and the patient has undergone a previous right above-knee amputation on November 12, 2024 Hypertension Diabetes mellitus type 2 along with complication of diabetes mellitus including peripheral neuropathy History of left basal ganglia infarct/CVA COPD Depression Chronic dysphagia Plan: The patient was seen and evaluated Labs and medications reviewed Failed a swallow evaluation May need a PEG tube placement Remains on Zosyn Continued on bronchodilators Stable and on room air Plan is to return to [facility] at discharge I have personally seen and examined the patient, performed the documentation and the assessment and plan as written. Number of minutes spent on the visit: 10 Dictation was produced using [email or web address] dictation software. Please excuse any grammatical, word or spelling errors.
[2024-11-30 16:51] LABS: Glucose,Whole Blood 88 mg/dL (70-110)
--- NOTE | 2024-11-30 18:12 | P.PN ---
Subjective Progress Note Date: 11/30/24 HISTORY OF PRESENT ILLNESS: This is a 74-year-old male with a previous medical history significant for hy pertension and hypertensive Vascular disease, mixed hyperlipidemia, diabetes mellitus type 2, with diabetic polyneuropathy, history of severe peripheral artery occlusive disease, status post revascularization of the right tibial vessel because of a nonhealing right great toe osteomyelitis, he ended up going for right great toe amputation in the past, because of nonhealing he was gone for right above-knee amputation that was done by Dr. June on 11/12/2024 and the patient was sent back to [facility] for physical therapy rehabilitation, while he was at [facility] yesterday patient apparently has some trouble swallowing the food, apparently had choked on his food, he had an episode of increased shortn ess of breath, he woke up in the morning with increased shortness of breath, with oxygenation dropped to 78%, chest x-ray showed evidence of bibasilar infiltrates, he was sent to the ER for evaluation, he was found to have bibasilar infiltrate likely aspiration pneumonia likely gram-negative pneumonia, patient initially was started on Zithromax Rocephin that was taken off, he was placed on Zosyn I will add vancomycin with pharmacy to dose the peak and trough, sputum culture will be obtained, pulmonary consultation was obtained, continue with DuoNeb 3 mL nebulization 4 times every day, follow-up with the patient very closely, patient continues to have trev in the right above-knee amputation 11/28: Patient is laying down in bed in no apparent distress, he is not eating much, he is having difficulty swallowing, speech therapy consulted, patient will be switched to D5 half-normal saline with 40 KCl at 75 cc an hour, continue to follow-up with the patient very closely, continue vancomycin with pharmacy to dose its peak and trough, continue also Zosyn, sputum culture, blood culture, follow-up with the patient very closely continue DuoNeb nebulization 4 times every day, repeat chest x-ray in the next 24 hours, pulmonary is following as well 11/29: Patient sitting up in bed in no apparent distress, he is feeling better today, he continues to have issues with swallowing, speech therapy evaluate the patient at the bedside today will need to go for modified barium swallow today, continue IV vancomycin as well as Zosyn, repeated chest x-ray today still pending, follow-up with the patient very closely, continue nebulized treatment, continue oxygen support, we will follow-up with the patient very closely. 11/30: Patient was seen in consultation by speech therapy yesterday, underwent modified barium swallow that he failed drastically, it was recommended by the speech therapist for the patient to have evaluation by gastroenterology for PEG tube placement as the patient is not able to swallow very well, he does appear to have a silent aspiration, his repeated chest x-ray showed worsening pneumonia, will continue current IV antibiotic with Zosyn, pulmonary is following, gastroenterology consultation will be obtained for possible PEG tube placement, patient is okay with the PEG tube at this point in time, we will proceed with that REVIEW OF SYSTEMS: Constitutional: No documented fever, no chills, no night sweats. No weight change. No weakness, fatigue or lethargy. No daytime sleepiness. EENT: No headache. No blurred vision or double vision, no loss of vision. No loss of Hearing, no ringing in the ears, no dizziness. No nasal drainage or congestion. No epistaxis. No sore throat. Lungs: positive for shortness of breath, occasional cough, minimal sputum pr oduction. No wheezing. Reports dyspnea with activity. Cardiovascular: No chest pain, no lower extremity edema. No palpitations. No paroxysmal nocturnal dyspnea. No orthopnea. No lightheadedness or dizziness. No syncopal episodes. Abdominal: Reports abdominal pain. No nausea, vomiting. No diarrhea. No constipation. No bloody or tarry stools reports loss of appetite. Genitourinary: No dysuria, increased frequency, urgency. No urinary retention. Musculoskeletal: No myalgias. positive for muscle weakness, positive for gait dysfunction, no frequent falls. No back pain. No neck pain. Integumentary: Right above-knee amputation wound with trev in place, no lesions. No rash or pruritus. No unusual bruising. No change in hair or nails. Neurologic: No aphasia. No facial droop. No change in mentation. No head injury. No headache. No paralysis. No paresthesia. Psychiatric: positive for depression. No anxiety. No mood swings. Endocrine: positive for abnormal blood sugars. No weight change. PHYSICAL EXAMINATION: General: 74-year-old male laying down in bed in no apparent distress. HEENT: Head is atraumatic, normocephalic, pupils were equal round reactive to light and recommendation, extraocular muscle movement were intact, sclera nonicteric, conjunctivae were pale, mucous membranes of the mouth are somewhat dry. Neck: Supple, no JVP, normal carotid upstroke bilaterally, no lymphadenopathy. Chest: Decreased breath sounds at the bases, few rhonchi, minimal expiratory wheezes, no chest wall tenderness, no intercostal retractions. Heart: First heart sound is normal, second heart sounds normal there is systolic ejection murmur 2 over systolic in the left sternal border. Abdomen: Soft, nontender, nondistended, positive bowel sounds. Extremities: There is right above-knee amputation with trev in place, left lower extremity with second and fifth digit amputation, significant dryness, dorsalis place in the left side p+1. Neurologic examination: Patient is awake alert and oriented x3, cranial nerves II-12 appear grossly intact, muscle power were 3 out of 5 in upper extremities and 2 out of 5 in left lower extremity ASSESSMENT AND PLAN: 1. Bilateral aspiration pneumonia with sepsis. Continue patient on Zosyn 3.375 g IV every 8 hours, off Vanco due to MSSA repeated chest x-ray continue to show evidence of worsening pneumonia, blood cultures are negative, sputum culture was never obtained, patient did have a nasal swab that was positive for methicillin sensitive Staphylococcus aureus, continue current treatment plan, follow-up with the patient very closely. Patient had failed modified barium swallow will consult gastroenterology for PEG tube placement. 2. Hypertension and hypertensive cardiovascular disease. Continue patient on metoprolol 50 mg once every day, losartan 12.5 mg every day, monitor the patient blood pressure very closely. 3. Mixed hyperlipidemia. Continue patient on atorvastatin 40 mg once every day, monitor the patient with panel, keep LDL 55-70. 4. Diabetes mellitus type 2 with recurrent hypoglycemia as the patient is not eating much, change IV fluid to D5 half-normal saline with 20 KCl at 75 cc an hour, off Lantus, continue sliding scale, continue Farxiga 10 mg once every day. Follow-up with the patient very closely 5. Severe PAD status post right above-knee amputation . Patient is currently on atorvastatin 40 mg once every day, as well as Xarelto 2.5 mg orally twice every day will hold Xarelto for now in preparation for PEG tube placement. 6. History of left basal ganglia infarct. Continue patient on aspirin 81 g once every day, atorvastatin 40 mg once every day, for secondary stroke p revention, tight control of diabetes. In view of his dysphagia consult neurology. 7. History of COPD. Continue patient on DuoNeb 3 mL nebulization 4 times every day, oxygen support as needed. 8. Depression continue patient on mirtazapine 7.5 mg orally once at bedtime. 9. Dysphagia. Patient continued to have silent aspiration, his chest x-ray is worsening, n.p.o. for now, GI consultation for PEG tube placement. 10. Medical debility. Continue with physical therapy evaluation. 11. DVT prophylaxis. Continue Xarelto 2.5 mg orally twice every day. I will hold for now for the patient to go for a PEG tube placement. 12. GI prophylaxis. Continue patient on Protonix 40 mg IV push every 24 hours.. 13. Overall prognosis is very guarded. Objective - Vital Signs Vital signs: Vital Signs Temp 97.4 F L 11/30/24 02:00 Pulse 100 11/30/24 02:00 Resp 20 11/30/24 02:00 BP 168/90 11/30/24 02:00 Pulse Ox 98 11/30/24 02:00 FiO2 Intake & Output 11/29/24 11/29/24 11/30/24 06:59 18:59 06:59 Intake Total 220 Output Total 542 660 2699 Balance -400 -680 -1350 Weight 57.243 kg Intake: Oral 220 Output: Urine 529 487 1857 Other: Voiding Method External Catheter External Catheter External Catheter # Voids 2 1 # Bowel Movements 1 1 - Labs CBC & Chem 7: 11/30/24 02:41 11/30/24 02:41 Labs: Abnormal Lab Results - Last 24 Hours (Table) 11/29/24 11/29/24 11/30/24 Range/Units 04:00 04:00 02:41 WBC 10.9 H (3.8-10.6) k/uL RBC 3.78 L 4.07 L (4.40-5.60) X 10*6/uL Hgb 10.7 L 11.5 L (13.0-17.0) g/dL Hct 36.8 L 38.7 L (39.6-50.0) % MCV 97.4 H (80.0-97.0) FL MCHC 29.1 L 29.7 L (32.0-37.0) g/dL Eosinophils # 0.37 H (0.04-0.35) X 10*3/uL Potassium (3.5-5.1) mmol/L Carbon Dioxide (22-30) mmol/L BUN (9-20) mg/dL Creatinine 0.5 L (0.6-1.5) mg/dL BUN/Creatinine Ratio 24.60 H (12.00-20.00) Ratio Calcium 7.9 L (8.7-10.3) mg/dL AST 42 H (14-35) U/L Alkaline Phosphatase 250 H (41-126) U/L Total Protein 5.8 L (6.2-8.2) g/dL Albumin 2.4 L (3.8-4.9) g/dL Globulin 3.4 H (1.6-3.3) g/dL Albumin/Globulin Ratio 0.71 L (1.60-3.17) Ratio 11/30/ Range/Units 02:41 WBC (3.8-10.6) k/uL RBC (4.40-5.60) X 10*6/uL Hgb (13.0-17.0) g/dL Hct (39.6-50.0) % MCV (80.0-97.0) FL MCHC (32.0-37.0) g/dL Eosinophils # (0.04-0.35) X 10*3/uL Potassium 3.4 L (3.5-5.1) mmol/L Carbon Dioxide 21 L (22-30) mmol/L BUN 6 L (9-20) mg/dL Creatinine 0.46 L (0.6-1.5) mg/dL BUN/Creatinine Ratio (12.00-20.00) Ratio Calcium 7.9 L (8.7-10.3) mg/dL AST (14-35) U/L Alkaline Phosphatase 265 H (41-126) U/L Total Protein 5.9 L (6.2-8.2) g/dL Albumin 2.5 L (3.8-4.9) g/dL Globulin (1.6-3.3) g/dL Albumin/Globulin Ratio (1.60-3.17) Ratio Microbiology - 24 Hours (Table) 11/28/24 11:33 Blood Culture - Preliminary Blood 11/26/24 15:02 Blood Culture - Preliminary Blood 11/27/24 12:14 Nasal Screen MRSA/MSSA - Final Nasal Swab Staphylococcus aureus,Not MRSA
[2024-11-30 21:40] LABS: Glucose,Whole Blood 79 mg/dL (70-110)
[2024-12-01 05:52] LABS: Glucose,Whole Blood 81 mg/dL (70-110)
[2024-12-01 08:35] LABS: Basophils # (A) 0.02 X 10*3/uL (0.00-0.10); Basophils % (A) 0.2 %; Eosinophils # (A) 0.19 X 10*3/uL (0.04-0.35); Eosinophils % (A) 2.1 %; HCT 32.8 % (39.6-50.0); HGB 10.1 g/dL (13.0-17.0); Lymphocytes # (A) 1.37 X 10*3/uL (0.90-5.00); MCH 29.4 pg (27.0-32.0); MCHC 30.8 g/dL (32.0-37.0); MCV 95.6 FL (80.0-97.0); Mean Platelet Volume 11.7 FL (9.5-12.2); Monocytes # (A) 0.64 X 10*3/uL (0.20-1.00); NRBC Per 100 WBC 0 X 10*3/uL (0.00-0.01); Neutrophils # (A) 6.84 X 10*3/uL (1.80-7.70); Neutrophils % (A) 75.2 %; Platelet Count 297 X 10*3/uL (140-440); RBC 3.43 X 10*6/uL (4.40-5.60); RDW 13.2 % (11.5-14.5); WBC 9.11 X 10*3/uL (4.50-10.00)
[2024-12-01 08:45] LABS: ALT 15 U/L (10-49); AST 23 U/L (14-35); Albumin 2.3 g/dL (3.8-4.9); Albumin/Globulin Ratio 0.74 Ratio (1.60-3.17); Alkaline Phosphatase 187 U/L (41-126); Blood Urea Nitrogen 6.3 mg/dL (9.0-27.0); Calcium 7.8 mg/dL (8.7-10.3); Carbon Dioxide 19.6 mmol/L (21.6-31.8); Chloride 108 mmol/L (96-109); Globulin 3.1 g/dL (1.6-3.3); Glucose 74 mg/dL (70-110); Potassium 3.6 mmol/L (3.5-5.5); Sodium 142 mmol/L (135-145); Total Bilirubin 0.3 mg/dL (0.3-1.2); Total Protein 5.4 g/dL (6.2-8.2)
--- NOTE | 2024-12-01 09:42 | P.PN ---
Subjective Progress Note Date: 12/01/24 Principal diagnosis: Aspiration, need for PEG tube This is a pleasantly confused 74-year-old male with multiple comorbidities including peripheral arterial disease with previous amputations, coronary artery disease, diabetes mellitus, hypertension, hyperlipidemia, diabetic neuropathy who resides at [facility] and has been undergoing physical therapy for recent amputation apparently patient was having difficulty swallowing his food and subsequently later was found to have shortness of breath and hypoxia. Patient was admitted for bilateral pneumonia. Patient underwent barium swallow study with speech therapy with finding of aspiration of multiple consistencies. Speech therapy is recommending patient be n.p.o. with consideration for alternative feeding method. Gastroenterology was consulted for PEG tube placement. Patient is on Xarelto 2.5 mg twice daily and aspirin 81 mg. Xarelto last taken today 12/01/2024 Patient seen and examined today as a follow-up. He is more alert is able to state that he is in the hospital. Plan discussed with PCP and patient would lik e to proceed with PEG tube placement for tube feedings. He currently denies any abdominal pain, nausea or vomiting. He has been NPO. Objective - Vital Signs Vital signs: Vital Signs Temp 97.6 F 12/01/24 07:04 Pulse 88 12/01/24 07:04 Resp 18 12/01/24 07:04 BP 115/72 12/01/24 07:04 Pulse Ox 98 12/01/24 07:04 FiO2 Intake & Output 11/30/24 12/01/24 12/01/24 18:59 06:59 18:59 Intake Total 300 Output Total 1100 550 Balance -800 -550 Intake: Oral 300 Output: Urine 1100 550 Other: Voiding Method External Catheter External Catheter # Bowel Movements 1 1 - Exam General appearance: The patient is alert, oriented x 2, appears in no acute distress. HET: Head is normocephalic and atraumatic. Conjunctiva pink. Sclera anicteric. Neck: Supple without lymphadenopathy. Abdomen: Soft, nontender, nondistended. Extremities: Normal skin color and turgor. Right [id number] amputation. Skin: No rashes, no jaundice Neurological: No focal deficits. Alert and oriented. - Labs CBC & Chem 7: 12/01/24 04:15 12/01/24 04:15 Labs: Abnormal Lab Results - Last 24 Hours (Table) 12/01/24 12/01/24 Range/Units 04:15 04:15 RBC 3.43 L (4.40-5.60) X 10*6/uL Hgb 10.1 L (13.0-17.0) g/dL Hct 32.8 L (39.6-50.0) % MCHC 30.8 L (32.0-37.0) g/dL Immature Gran # 0.05 H (0.00-0.04) X 10*3/uL Carbon Dioxide 19.6 L (21.6-31.8) mmol/L Anion Gap 14.40 H (4.00-12.00) mmol/L BUN 6.3 L (9.0-27.0) mg/dL Creatinine 0.5 L (0.6-1.5) mg/dL Calcium 7.8 L (8.7-10.3) mg/dL Alkaline Phosphatase 187 H (41-126) U/L Total Protein 5.4 L (6.2-8.2) g/dL Albumin 2.3 L (3.8-4.9) g/dL Albumin/Globulin Ratio 0.74 L (1.60-3.17) Ratio Microbiology - Last 24 Hours (Table) 11/28/24 11:33 Blood Culture - Preliminary Blood Assessment and Plan (1) Aspiration into airway Narrative/Plan: 74-year-old male with multiple comorbidities with significant peripheral vascular disease who has undergone revascularization and amputation for nonhealing wounds has been admitted for concerns for aspiration pneumonia. Patient underwent evaluation with speech therapy and barium swallow that showed aspiration with multiple consistencies. Concern is for ongoing aspiration unclear etiology, neurology is following for stroke workup. Patient is on anticoagulation will need to be discontinued prior to proceeding with EGD and PEG tube placement. Patient would like to proceed with EGD and PEG tube placement as well as patient's daughter who is making decisions. Patient will continue to hold anticoagulation and is scheduled for EGD and PEG tube placement tomorrow. 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 Case management spoke to patient's daughter Zhang Hayward who states she will make medical decisions and believes her father would want to have the PEG tube done. Current Visit: Yes Status: Acute Code(s): R41.82 - ALTERED MENTAL STATUS, UNSPECIFIED SNOMED Code(s): 353234878 Plan: 1. Continue symptomatic and supportive care 2. Keep n.p.o. per recommendations from speech therapy 3. Hold anticoagulation 4. Obtain consent from patient's daughter for EGD and PEG tube placement 5. Patient is scheduled for EGD with PEG tube placement for tomorrow 6. Rest of medical management per primary medical team Thank you for this consultation, we will continue to follow. Dr. Aldair Munroe I agree with the dictator's note, documented as a scribe by Micki Franks.
[2024-12-01] MEDS: LIDOCAINE 2% GLYDO JELLY 6 ML APPL TOPICAL SCH (10:52)
[2024-12-01] MEDS ORDERED: VANCOMYCIN TROUGH DUE 1 EACH MISC MISCELLANE ONE (11:00)
[2024-12-01 11:24] LABS: Glucose,Whole Blood 81 mg/dL (70-110)
[2024-12-01] MEDS: PANTOPRAZOLE 40 MG/10 ML VIAL IVP SCH (12:41)
--- NOTE | 2024-12-01 14:01 | P.PN ---
Subjective Progress Note Date: 12/01/24 HISTORY OF PRESENT ILLNESS: This is a 74-year-old male with a previous medical history significant for hy pertension and hypertensive Vascular disease, mixed hyperlipidemia, diabetes mellitus type 2, with diabetic polyneuropathy, history of severe peripheral artery occlusive disease, status post revascularization of the right tibial vessel because of a nonhealing right great toe osteomyelitis, he ended up going for right great toe amputation in the past, because of nonhealing he was gone for right above-knee amputation that was done by Dr. June on 11/12/2024 and the patient was sent back to [facility] for physical therapy rehabilitation, while he was at [facility] yesterday patient apparently has some trouble swallowing the food, apparently had choked on his food, he had an episode of increased shortn ess of breath, he woke up in the morning with increased shortness of breath, with oxygenation dropped to 78%, chest x-ray showed evidence of bibasilar infiltrates, he was sent to the ER for evaluation, he was found to have bibasilar infiltrate likely aspiration pneumonia likely gram-negative pneumonia, patient initially was started on Zithromax Rocephin that was taken off, he was placed on Zosyn I will add vancomycin with pharmacy to dose the peak and trough, sputum culture will be obtained, pulmonary consultation was obtained, continue with DuoNeb 3 mL nebulization 4 times every day, follow-up with the patient very closely, patient continues to have trev in the right above-knee amputation 11/28: Patient is laying down in bed in no apparent distress, he is not eating much, he is having difficulty swallowing, speech therapy consulted, patient will be switched to D5 half-normal saline with 40 KCl at 75 cc an hour, continue to follow-up with the patient very closely, continue vancomycin with pharmacy to dose its peak and trough, continue also Zosyn, sputum culture, blood culture, follow-up with the patient very closely continue DuoNeb nebulization 4 times every day, repeat chest x-ray in the next 24 hours, pulmonary is following as well 11/29: Patient sitting up in bed in no apparent distress, he is feeling better today, he continues to have issues with swallowing, speech therapy evaluate the patient at the bedside today will need to go for modified barium swallow today, continue IV vancomycin as well as Zosyn, repeated chest x-ray today still pending, follow-up with the patient very closely, continue nebulized treatment, continue oxygen support, we will follow-up with the patient very closely. 11/30: Patient was seen in consultation by speech therapy yesterday, underwent modified barium swallow that he failed drastically, it was recommended by the speech therapist for the patient to have evaluation by gastroenterology for PEG tube placement as the patient is not able to swallow very well, he does appear to have a silent aspiration, his repeated chest x-ray showed worsening pneumonia, will continue current IV antibiotic with Zosyn, pulmonary is following, gastroenterology consultation will be obtained for possible PEG tube placement, patient is okay with the PEG tube at this point in time, we will proceed with that 12/01: Patient is laying down in bed in no apparent distress, he continues to have significant pain in the left heel, he does appear to have a DTI in the left heel, I spoke with the nursing staff about floating his left heel, place left heel boot, and apply Optifoam and prior to that apply Skin-Prep daily, patient is not getting any distress at this point in time, he is getting D5 half-normal saline with 20 KCl in the IV at this point, we will continue with that, patient is scheduled to have a PEG tube placement tomorrow at noon, will follow-up with the patient very closely, keep the patient on nothing per mouth. REVIEW OF SYSTEMS: Constitutional: No documented fever, no chills, no night sweats. No weight change. No weakness, fatigue or lethargy. No daytime sleepiness. EENT: No headache. No blurred vision or double vision, no loss of vision. No loss of Hearing, no ringing in the ears, no dizziness. No nasal drainage or c ongestion. No epistaxis. No sore throat. Lungs: positive for shortness of breath, occasional cough, minimal sputum production. No wheezing. Reports dyspnea with activity. Cardiovascular: No chest pain, no lower extremity edema. No palpitations. No paroxysmal nocturnal dyspnea. No orthopnea. No lightheadedness or dizziness. No syncopal episodes. Abdominal: Reports abdominal pain. No nausea, vomiting. No diarrhea. No constipation. No bloody or tarry stools reports loss of appetite. Genitourinary: No dysuria, increased frequency, urgency. No urinary retention. Musculoskeletal: No myalgias. positive for muscle weakness, positive for gait dysfunction, no frequent falls. No back pain. No neck pain. Integumentary: Right above-knee amputation wound with trev in place, no lesi ons. No rash or pruritus. No unusual bruising. No change in hair or nails. Neurologic: No aphasia. No facial droop. No change in mentation. No head injury. No headache. No paralysis. No paresthesia. Psychiatric: positive for depression. No anxiety. No mood swings. Endocrine: positive for abnormal blood sugars. No weight change. PHYSICAL EXAMINATION: General: 74-year-old male laying down in bed in no apparent distress. HEENT: Head is atraumatic, normocephalic, pupils were equal round reactive to light and recommendation, extraocular muscle movement were intact, sclera nonicteric, conjunctivae were pale, mucous membranes of the mouth are somewhat dry. Neck: Supple, no JVP, normal carotid upstroke bilaterally, no lymphadenopathy. Chest: Decreased breath sounds at the bases, few rhonchi, minimal expiratory wheezes, no chest wall tenderness, no intercostal retractions. Heart: First heart sound is normal, second heart sounds normal there is systolic ejection murmur 2 over systolic in the left sternal border. Abdomen: Soft, nontender, nondistended, positive bowel sounds. Extremities: There is right above-knee amputation with removal of trev., left lower extremity with second and fifth digit amputation, significant dryness, dorsalis place in the left side p+1. There is left heel DTI. Neurologic examination: Patient is awake alert and oriented x3, cranial nerves II-12 appear grossly intact, muscle power were 3 out of 5 in upper extremities and 2 out of 5 in left lower extremity ASSESSMENT AND PLAN: 1. Bilateral aspiration pneumonia with sepsis. Continue patient on Zosyn 3.375 g IV every 8 hours, off Vanco due to MSSA repeated chest x-ray continue to show evidence of worsening pneumonia, blood cultures are negative, sputum culture was never obtained, patient did have a nasal swab that was positive for methicillin sensitive Staphylococcus aureus, continue current treatment plan, follow-up with the patient very closely. Patient had failed modified barium swallow will consult gastroenterology for PEG tube placement. 2. Hypertension and hypertensive cardiovascular disease. Continue patient on metoprolol 50 mg once every day, losartan 12.5 mg every day, monitor the patient blood pressure very closely. 3. Mixed hyperlipidemia. Continue patient on atorvastatin 40 mg once every day, monitor the patient with panel, keep LDL 55-70. 4. Diabetes mellitus type 2 with recurrent hypoglycemia as the patient is not eating much, change IV fluid to D5 half-normal saline with 20 KCl at 75 cc an hour, off Lantus, continue sliding scale, continue Farxiga 10 mg once every day. Follow-up with the patient very closely 5. Severe PAD status post right above-knee amputation . Patient is currently on atorvastatin 40 mg once every day, as well as Xarelto 2.5 mg orally twice every day will hold Xarelto for now in preparation for PEG tube placement. 6. History of left basal ganglia infarct. Continue patient on aspirin 81 g once every day, atorvastatin 40 mg once every day, for secondary stroke prevention, tight control of diabetes. In view of his dysphagia consult neurology. 7. History of COPD. Continue patient on DuoNeb 3 mL nebulization 4 times every day, oxygen support as needed. 8. Depression continue patient on mirtazapine 7.5 mg orally once at bedtime. 9. Dysphagia. Patient continued to have silent aspiration, his chest x-ray is worsening, n.p.o. for now, GI consultation for PEG tube placement. 10. Medical debility. Continue with physical therapy evaluation. 11. DVT prophylaxis. I will hold for now for the patient to go for a PEG tube placement. 12. GI prophylaxis. Continue patient on Protonix 40 mg IV push every 24 hours.. 13. Overall prognosis is very guarded. Objective - Vital Signs Vital signs: Vital Signs Temp 97.6 F 12/01/24 07:04 Pulse 88 12/01/24 07:04 Resp 18 12/01/24 07:04 BP 115/72 12/01/24 07:04 Pulse Ox 98 12/01/24 07:04 FiO2 Intake & Output 11/30/24 12/01/24 12/01/24 18:59 06:59 18:59 Intake Total 300 Output Total 1100 550 Balance -800 -550 Intake: Oral 300 Output: Urine 1100 550 Other: Voiding Method External Catheter External Catheter External Catheter # Bowel Movements 1 1 - Labs CBC & Chem 7: 12/01/24 04:15 12/01/24 04:15 Labs: Abnormal Lab Results - Last 24 Hours (Table) 12/01/24 12/01/24 Range/Units 04:15 04:15 RBC 3.43 L (4.40-5.60) X 10*6/uL Hgb 10.1 L (13.0-17.0) g/dL Hct 32.8 L (39.6-50.0) % MCHC 30.8 L (32.0-37.0) g/dL Immature Gran # 0.05 H (0.00-0.04) X 10*3/uL Carbon Dioxide 19.6 L (21.6-31.8) mmol/L Anion Gap 14.40 H (4.00-12.00) mmol/L BUN 6.3 L (9.0-27.0) mg/dL Creatinine 0.5 L (0.6-1.5) mg/dL Calcium 7.8 L (8.7-10.3) mg/dL Alkaline Phosphatase 187 H (41-126) U/L Total Protein 5.4 L (6.2-8.2) g/dL Albumin 2.3 L (3.8-4.9) g/dL Albumin/Globulin Ratio 0.74 L (1.60-3.17) Ratio Microbiology - Last 24 Hours (Table) 11/28/24 11:33 Blood Culture - Preliminary Blood
--- NOTE | 2024-12-01 16:32 | P.PN ---
Subjective Progress Note Date: 12/01/24 74-year-old medication being seen for pneumonia. The patient has multiple medical problems or comorbidities. The patient has history of peripheral vascular disease with a nonhealing right toe osteomyelitis and the patient has undergone previous toe amputation ultimately his infection progressed and the patient required a right above-knee amputation that was done by vascular surgery on 11/12/2024 and following that he was discharged to [facility] for further rehabilitation. He has other comorbidities including diabetes mellitus type 2 with diabetic peripheral neuropathy in addition to peripheral vascular disease, hypertension and hyperlipidemia. The patient presented to us with increased cough and congestion and some shortness of breath and hypoxemia. Chest x-ray showed bilateral lower lobe pneumonia. Apparently has been having difficulty swallowing and choking on food material. Aspiration was suspected. Initially , he was started on Rocephin and and Zithromax. Respiratory IV Zosyn and vancomycin was also added regarding his pneumonia based on his comorbidities and previous hospitalizations. Currently, the patient is hemodynamically stable on 2 L of oxygen by nasal cannula. The white cell count is at 11 with a hemoglobin of 10.3 and a platelet count of 289. BUN 24 with a creatinine of 0.5. No altered mentation. He has some oropharyngeal candidiasis. He has poor dentit ion On 11/28/2024, the patient is being seen for a follow-up. He is calm and comfortable. He has no significant complaints. This morning, his cough is less congested. He is afebrile. Maintained on 2 L of oxygen by nasal cannula with pulse ox of 98%. No other significant events overnight. The patient is seen today November 29, 2024 in follow-up on the regular medical floor. He is currently sitting up at the bedside. Working with physical therapy. Awake and alert in no acute distress. Maintaining O2 saturations in the 90s on room air. Chest x-ray continues to show basilar infiltrates. White count 9.6. Hemoglobin 10.7. Platelets 275. Sodium 140. Potassium 3.8. Bicarb 22. BUN 12. Creatinine 0.5. Glucose 87. Vancomycin trough 11.5. Urine Legionella antigen negative. He remains on DuoNeb and elations as needed. Receiving D5W and a half normal saline with 20 KCl at 75 mL/h. Continued on vancomycin and Zosyn. Anticoagulated with Xarelto. Today November 30, 2024 in follow-up on the regular medical floor. He is currently sitting up in bed. Awake and alert in no acute distress. Maintaining good O2 saturations in the 90s on room air. He remains on bronchodilators as needed. Continued on Mucinex. Continued on Zosyn. Anticoagulated with Xarelto. Blood culture showing no growth to date. White count 10.9. Hemoglobin 11.5. Platelets 280. Sodium 138. Potassium 3.4. Bicarb 21. BUN 6. Creatinine 0.46. Glucose 76. Patient failed a swallow evaluation. May swallow evaluation. May need to be considered for PEG tube placement. The patient is seen today December 01, 2024 in follow-up on the regular medical floor. He is awake and alert in no acute distress. Resting fairly comfortably in bed. Denies any worsening shortness of breath, cough or congestion. Continues to maintain good O2 saturations in the 90s on room air. He is awaiting PEG tube insertion tomorrow. Following that he will be discharged to [facility] [place] for rehabilitation. White count 9.1. Hemoglobin 10.1. Platelets 297. Sodium 142. Potassium 3.6. Bicarb 20. BUN 6. Creatinine 0.5. Glucose 74. He remains on Zosyn. Bronchodilators as needed. Cultures revealed no growth. Objective - Vital Signs Vital signs: Vital Signs Temp 98.2 F 12/01/24 14:10 Pulse 101 H 12/01/24 14:10 Resp 19 12/01/24 14:10 BP 108/71 12/01/24 14:10 Pulse Ox 100 12/01/24 14:10 FiO2 Intake & Output 11/30/24 12/01/24 12/01/24 18:59 06:59 18:59 Intake Total 300 Output Total 1100 550 Balance -800 -550 Intake: Oral 300 Output: Urine 1100 550 Other: Voiding Method External Catheter External Catheter External Catheter # Bowel Movements 1 1 - Exam GENERAL EXAM: Alert, 74-year-old male, on room air, in no apparent distress. HEAD: Normocephalic. EYES: Normal reaction of pupils, equal size. NOSE: Clear with pink turbinates. THROAT: No erythema or exudates. NECK: No masses, no JVD. CHEST: No chest wall deformity. LUNGS: Equal air entry with few scattered rhonchi. CVS: S1 and S2 normal with no audible murmur, regular rhythm. ABDOMEN: No hepatosplenomegaly, normal bowel sounds, no guarding or rigidity. SPINE: No scoliosis or deformity SKIN: No rashes CENTRAL NERVOUS SYSTEM: No focal deficits, tone is normal in all 4 extremities. EXTREMITIES: Right [id number] amputation, surgical site clean and dry. There is no peripheral edema. Peripheral pulses are intact. - Labs CBC & Chem 7: 12/01/24 04:15 12/01/24 04:15 Labs: Abnormal Lab Results - Last 24 Hours (Table) 12/01/24 12/01/24 Range/Units 04:15 04:15 RBC 3.43 L (4.40-5.60) X 10*6/uL Hgb 10.1 L (13.0-17.0) g/dL Hct 32.8 L (39.6-50.0) % MCHC 30.8 L (32.0-37.0) g/dL Immature Gran # 0.05 H (0.00-0.04) X 10*3/uL Carbon Dioxide 19.6 L (21.6-31.8) mmol/L Anion Gap 14.40 H (4.00-12.00) mmol/L BUN 6.3 L (9.0-27.0) mg/dL Creatinine 0.5 L (0.6-1.5) mg/dL Calcium 7.8 L (8.7-10.3) mg/dL Alkaline Phosphatase 187 H (41-126) U/L Total Protein 5.4 L (6.2-8.2) g/dL Albumin 2.3 L (3.8-4.9) g/dL Albumin/Globulin Ratio 0.74 L (1.60-3.17) Ratio Microbiology - Last 24 Hours (Table) 11/28/24 11:33 Blood Culture - Preliminary Blood Assessment and Plan Assessment: Acute bilateral lower lobe pneumonia, likely aspiration. The patient has poor dentition. The patient has also dysphagia and difficulty swallowing and choking of food material. Aspiration pneumonia versus hospital-acquired pneumonia is being considered on this patient. The patient is currently on Zosyn. The patient failed a swallow evaluation. Plan is for PEG tube insertion tomorrow December 02, 2024 Acute hypoxic respiratory failure secondary to above, recovered and on room air oxygen Severe PVOD and the patient has undergone a previous right above-knee amputation on November 12, 2024 Hypertension Diabetes mellitus type 2 along with complication of diabetes mellitus including peripheral neuropathy History of left basal ganglia infarct/CVA COPD Depression Chronic dysphagia Plan: The patient was seen and evaluated Labs and medications reviewed PEG tube placement tomorrow Remains on Zosyn Continued on bronchodilators Stable and on room air Plan is to return to [facility] I have personally seen and examined the patient, performed the documentation and the assessment and plan as written. Number of minutes spent on the visit: 10 Dictation was produced using olook dictation software. Please excuse any grammatical, word or spelling errors.
[2024-12-01 16:57] LABS: Glucose,Whole Blood 72 mg/dL (70-110)
[2024-12-01 20:07] LABS: Glucose,Whole Blood 73 mg/dL (70-110)
[2024-12-01] MEDS: D5-0.45% NACL WITH KCL 20MEQ/L 1,000 ML IV SCH (21:36)
[2024-12-02 05:52] LABS: INR 1.5 (<1.2); Prothrombin Time 15.2 sec (10.0-12.5)
[2024-12-02 06:07] LABS: ALT 12 U/L (4-49); AST 20 U/L (17-59); African American GFR (CKD) >90 (>60 ml/min/1.73 sqM); Albumin 2.2 g/dL (3.5-5.0); Albumin/Globulin Ratio 0.7; Alkaline Phosphatase 166 U/L (38-126); Anion Gap 7 mmol/L; Blood Urea Nitrogen 6 mg/dL (9-20); Calcium 7.7 mg/dL (8.4-10.2); Carbon Dioxide 24 mmol/L (22-30); Chloride 105 mmol/L (98-107); Globulin 3.2 g/dL; Glucose 111 mg/dL (74-99); Non-African American GFR(CKD) >90 (>60 ml/min/1.73 sqM); Potassium 3.5 mmol/L (3.5-5.1); Sodium 136 mmol/L (137-145); Total Bilirubin 0.4 mg/dL (0.2-1.3); Total Protein 5.4 g/dL (6.3-8.2)
[2024-12-02 06:19] LABS: Glucose,Whole Blood 122 mg/dL (70-110)
[2024-12-02 09:48] LABS: Basophils % (A) 0 %; Eosinophils # (A) 0.2 k/uL (0-0.7); Eosinophils % (A) 3 %; HCT 31.3 % (39.0-53.0); Hypochromasia Marked; Lymphocytes # (A) 1.1 k/uL (1.0-4.8); Lymphocytes % (A) 16 %; MCH 29.3 pg (25.0-35.0); MCHC 31.6 g/dL (31.0-37.0); MCV 92.7 fL (80.0-100.0); Mean Platelet Volume 8.7; Monocytes # (A) 0.4 k/uL (0-1.0); Monocytes % (A) 6 %; Neutrophils % (A) 74 %; Platelet Count 264 k/uL (150-450); RBC 3.38 m/uL (4.30-5.90); RDW 13.6 % (11.5-15.5); WBC 6.8 k/uL (3.8-10.6)
[2024-12-02 09:56] LABS: HGB 9.9 gm/dL (13.0-17.5)
[2024-12-02 11:52] LABS: Glucose,Whole Blood 131 mg/dL (70-110)
[2024-12-02] MEDS ORDERED: PROPOFOL 10 MG/ML 20 ML VIAL IV ONE (12:53)
[2024-12-02] MEDS ORDERED: LIDOCAINE 1% INJ 10MG/ML (20 ML MDV) ONE (12:53)
[2024-12-02] MEDS: IV FLUID CONTINUATION 1,000 ML IV ONE (13:02)
--- NOTE | 2024-12-02 13:19 | P.PCN ---
Date of Procedure: 12/02/24 Procedure(s) Performed: Brief history: Patient is a 4-year-old pleasant white male scheduled for an EGD with PEG tube placement today. He was admitted to hospital with altered mental status and has prior history of CVA in the past. He was diagnosed with pneumonia and is on broad-spectrum antibiotics. He was complaining of dysphagia and failed swallow evaluation and hence he scheduled for an EGD with a PEG tube placement today Procedure performed: EGD with PEG tube placement Preoperative diagnosis: Oropharyngeal dysphagia IV sedation by anesthesia Procedure: After informed consent was obtained with the patient as well as the family the patient was brought into the endoscopy unit. IV conscious sedation was administered by anesthesia under continuous monitoring. The Olympus GF 160 video endoscope was inserted into the mouth and esophagus intubated without any difficulty and was gradually advanced to the stomach and duodenum. The bulb and second part of the duodenum was visualized which appeared normal. The scope at this time was withdrawn to the stomach adequately insufflated with air. Adequate transillumination was achieved onto the anterior abdominal wall. At the site of adequate transillumination and maximal finger indentation, on the anterior abdominal wall, this area was sterilely prepped and draped. One percent Xylocaine was infiltrated into the skin and a small incision was made. Trocar and cannula was passed through the incision into the stomach cavity. The trocar was removed. Guidewire was passed through the cannula into the stomach cavity which was held by the snare that was passed through the scope. The guidewire along with the scope was gently withdrawn from the stomach esophagus out of the mouth. A 20-[employer] PEG tube was passed over the guidewire and was gently advanced into the mouth and esophagus and stomach. With gentle traction the guidewire along with the PEG tube was pulled from the anterior abdominal wall until the internal bumper appeared to be in secure position. Repeat EGD was performed and the esophagus intubated without any difficulty and was advanced into the stomach. The internal bumper appeared to be in secure position. The visualized portions of the antrum body cardia and fundus of the stomach appeared normal. The esophagus was carefully examined as the scope was gradually being withdrawn which appeared normal. At this time external bumper was placed on the PEG tube closer to the anterior abdominal wall at 3 cm anila. The patient tolerated the procedure well. Impression: Successful 20[employer] PEG tube placement as described above. Recommendations: Findings of this examination were discussed with the patient's family. The patient will be started on tube feeds tomorrow. Post-PEG tube orders were written.
[2024-12-02 16:47] LABS: Glucose,Whole Blood 135 mg/dL (70-110)
--- NOTE | 2024-12-02 17:43 | P.PN ---
Subjective Progress Note Date: 12/02/24 HISTORY OF PRESENT ILLNESS: This is a 74-year-old male with a previous medical history significant for hy pertension and hypertensive Vascular disease, mixed hyperlipidemia, diabetes mellitus type 2, with diabetic polyneuropathy, history of severe peripheral artery occlusive disease, status post revascularization of the right tibial vessel because of a nonhealing right great toe osteomyelitis, he ended up going for right great toe amputation in the past, because of nonhealing he was gone for right above-knee amputation that was done by Dr. June on 11/12/2024 and the patient was sent back to [facility] for physical therapy rehabilitation, while he was at [facility] yesterday patient apparently has some trouble swallowing the food, apparently had choked on his food, he had an episode of increased shortn ess of breath, he woke up in the morning with increased shortness of breath, with oxygenation dropped to 78%, chest x-ray showed evidence of bibasilar infiltrates, he was sent to the ER for evaluation, he was found to have bibasilar infiltrate likely aspiration pneumonia likely gram-negative pneumonia, patient initially was started on Zithromax Rocephin that was taken off, he was placed on Zosyn I will add vancomycin with pharmacy to dose the peak and trough, sputum culture will be obtained, pulmonary consultation was obtained, continue with DuoNeb 3 mL nebulization 4 times every day, follow-up with the patient very closely, patient continues to have trev in the right above-knee amputation 11/28: Patient is laying down in bed in no apparent distress, he is not eating much, he is having difficulty swallowing, speech therapy consulted, patient will be switched to D5 half-normal saline with 40 KCl at 75 cc an hour, continue to follow-up with the patient very closely, continue vancomycin with pharmacy to dose its peak and trough, continue also Zosyn, sputum culture, blood culture, follow-up with the patient very closely continue DuoNeb nebulization 4 times every day, repeat chest x-ray in the next 24 hours, pulmonary is following as well 11/29: Patient sitting up in bed in no apparent distress, he is feeling better today, he continues to have issues with swallowing, speech therapy evaluate the patient at the bedside today will need to go for modified barium swallow today, continue IV vancomycin as well as Zosyn, repeated chest x-ray today still pending, follow-up with the patient very closely, continue nebulized treatment, continue oxygen support, we will follow-up with the patient very closely. 11/30: Patient was seen in consultation by speech therapy yesterday, underwent modified barium swallow that he failed drastically, it was recommended by the speech therapist for the patient to have evaluation by gastroenterology for PEG tube placement as the patient is not able to swallow very well, he does appear to have a silent aspiration, his repeated chest x-ray showed worsening pneumonia, will continue current IV antibiotic with Zosyn, pulmonary is following, gastroenterology consultation will be obtained for possible PEG tube placement, patient is okay with the PEG tube at this point in time, we will proceed with that 12/01: Patient is laying down in bed in no apparent distress, he continues to have significant pain in the left heel, he does appear to have a DTI in the left heel, I spoke with the nursing staff about floating his left heel, place left heel boot, and apply Optifoam and prior to that apply Skin-Prep daily, patient is not getting any distress at this point in time, he is getting D5 half-normal saline with 20 KCl in the IV at this point, we will continue with that, patient is scheduled to have a PEG tube placement tomorrow at noon, will follow-up with the patient very closely, keep the patient on nothing per mouth. 12/02: Patient underwent a peg tube placement that was done successfully by Dr. Munroe will restart tube feeding advance as tolerated, the plan is for the patient to go back to [facility] if he approved and a prior authorization get there tomorrow morning otherwise he will have to stay until Friday continue IV fluid resuscitation until the patient is at goal for his tube feeding. REVIEW OF SYSTEMS: Constitutional: No documented fever, no chills, no night sweats. No weight change. No weakness, fatigue or lethargy. No daytime sleepiness. EENT: No headache. No blurred vision or double vision, no loss of vision. No loss of Hearing, no ringing in the ears, no dizziness. No nasal drainage or congestion. No epistaxis. No sore throat. Lungs: positive for shortness of breath, occasional cough, minimal sputum pr oduction. No wheezing. Reports dyspnea with activity. Cardiovascular: No chest pain, no lower extremity edema. No palpitations. No paroxysmal nocturnal dyspnea. No orthopnea. No lightheadedness or dizziness. No syncopal episodes. Abdominal: Reports abdominal pain. No nausea, vomiting. No diarrhea. No constipation. No bloody or tarry stools reports loss of appetite. Genitourinary: No dysuria, increased frequency, urgency. No urinary retention. Musculoskeletal: No myalgias. positive for muscle weakness, positive for gait dysfunction, no frequent falls. No back pain. No neck pain. Integumentary: Right above-knee amputation wound with trev in place, no lesions. No rash or pruritus. No unusual bruising. No change in hair or nails. Neurologic: No aphasia. No facial droop. No change in mentation. No head injury. No headache. No paralysis. No paresthesia. Psychiatric: positive for depression. No anxiety. No mood swings. Endocrine: positive for abnormal blood sugars. No weight change. PHYSICAL EXAMINATION: General: 74-year-old male laying down in bed in no apparent distress. HEENT: Head is atraumatic, normocephalic, pupils were equal round reactive to light and recommendation, extraocular muscle movement were intact, sclera nonicteric, conjunctivae were pale, mucous membranes of the mouth are somewhat dry. Neck: Supple, no JVP, normal carotid upstroke bilaterally, no lymphadenopathy. Chest: Decreased breath sounds at the bases, few rhonchi, minimal expiratory wheezes, no chest wall tenderness, no intercostal retractions. Heart: First heart sound is normal, second heart sounds normal there is systolic ejection murmur 2 over systolic in the left sternal border. Abdomen: Soft, nontender, nondistended, positive bowel sounds. Extremities: There is right above-knee amputation with removal of trev., left lower extremity with second and fifth digit amputation, significant dryness, dorsalis place in the left side p+1. There is left heel DTI. Neurologic examination: Patient is awake alert and oriented x3, cranial nerves II-12 appear grossly intact, muscle power were 3 out of 5 in upper extremities and 2 out of 5 in left lower extremity ASSESSMENT AND PLAN: 1. Bilateral aspiration pneumonia with sepsis. Continue patient on Zosyn 3.375 g IV every 8 hours, blood cultures are negative, sputum culture was never obtained, patient did have a nasal swab that was positive for methicillin sensitive Staphylococcus aureus, continue current treatment plan, follow-up with the patient very closely. Patient had failed modified barium swallow will consult gastroenterology for PEG tube placement. 2. Hypertension and hypertensive cardiovascular disease. Continue patient on metoprolol 50 mg once every day, losartan 12.5 mg every day, monitor the patient blood pressure very closely. 3. Mixed hyperlipidemia. Continue patient on atorvastatin 40 mg once every day, monitor the patient with panel, keep LDL 55-70. 4. Diabetes mellitus type 2 with recurrent hypoglycemia as the patient is not eating much, change IV fluid to D5 half-normal saline with 20 KCl at 75 cc an hour, off Lantus, continue sliding scale, continue Farxiga 10 mg once every day. Follow-up with the patient very closely 5. Severe PAD status post right above-knee amputation . Patient is currently on atorvastatin 40 mg once every day, as well as Xarelto 2.5 mg orally twice every day will hold Xarelto for now in preparation for PEG tube placement. 6. History of left basal ganglia infarct. Continue patient on aspirin 81 g once every day, atorvastatin 40 mg once every day, for secondary stroke prevention, tight control of diabetes. In view of his dysphagia consult neurology. 7. History of COPD. Continue patient on DuoNeb 3 mL nebulization 4 times every day, oxygen support as needed. 8. Depression continue patient on mirtazapine 7.5 mg orally once at bedtime. 9. Dysphagia. Patient continued to have silent aspiration status post PEG tube placement today. 10. Medical debility. Continue with physical therapy evaluation. 11. DVT prophylaxis. I will hold for now hopefully will resume in the next 24 hours. 12. GI prophylaxis. Continue patient on Protonix 40 mg IV push every 24 hours.. 13. Overall prognosis is very guarded. 14. Plan for [place] with PEG tube feeding when the patient is tolerating tube feeding well and prior authorization is achieved. Objective - Vital Signs Vital signs: Vital Signs Temp 97.5 F L 12/02/24 07:51 Pulse 80 12/02/24 07:51 Resp 17 12/02/24 07:51 BP 118/68 12/02/24 07:51 Pulse Ox 97 12/02/24 07:51 FiO2 Intake & Output 12/01/24 12/02/24 12/02/24 18:59 06:59 18:59 Intake Total 0 100 Output Total 475 950 Balance -475 -950 100 Intake: IV 100 Oral 0 Output: Urine 475 950 Other: Voiding Method External Catheter External Catheter External Catheter # Bowel Movements 1 - Labs CBC & Chem 7: 12/02/24 09:25 12/02/24 05:09 Labs: Abnormal Lab Results - Last 24 Hours (Table) 12/02/24 12/02/24 12/02/24 Range/Units 05:09 05:09 06:17 RBC (4.30-5.90) m/uL Hgb (13.0-17.5) gm/dL Hct (39.0-53.0) % PT 15.2 H (10.0-12.5) sec INR 1.5 H (<1.2) Sodium 136 L (137-145) mmol/L BUN 6 L (9-20) mg/dL Creatinine 0.41 L (0.66-1.25) mg/dL Glucose 111 H (74-99) mg/dL POC Glucose (mg/dL) 122 H (70-110) mg/dL Calcium 7.7 L (8.4-10.2) mg/dL Alkaline Phosphatase 166 H (38-126) U/L Total Protein 5.4 L (6.3-8.2) g/dL Albumin 2.2 L (3.5-5.0) g/dL 12/02/24 12/02/24 Range/Units 09:25 11:50 RBC 3.38 L (4.30-5.90) m/uL Hgb 9.9 L D (13.0-17.5) gm/dL Hct 31.3 L (39.0-53.0) % PT (10.0-12.5) sec INR (<1.2) Sodium (137-145) mmol/L BUN (9-20) mg/dL Creatinine (0.66-1.25) mg/dL Glucose (74-99) mg/dL POC Glucose (mg/dL) 131 H (70-110) mg/dL Calcium (8.4-10.2) mg/dL Alkaline Phosphatase (38-126) U/L Total Protein (6.3-8.2) g/dL Albumin (3.5-5.0) g/dL Microbiology - Last 24 Hours (Table) 11/28/24 11:33 Blood Culture - Preliminary Blood 11/26/24 15:02 Blood Culture - Final Blood
[2024-12-02] MEDS: HYDROcodone/APAP 5-325MG 1 EACH TAB PO PRN (17:48)
[2024-12-02 20:40] LABS: Glucose,Whole Blood 254 mg/dL (70-110)
[2024-12-03 06:20] LABS: Glucose,Whole Blood 170 mg/dL (70-110)
[2024-12-03] MEDS: ASPIRIN 81 MG PO SCH (07:53)
[2024-12-03] MEDS: RIVAROXABAN 2.5 MG TABLET PO SCH (07:55)
[2024-12-03 08:02] LABS: HCT 37.7 % (39.6-50.0); HGB 11.5 g/dL (13.0-17.0); MCH 28.9 pg (27.0-32.0); MCHC 30.5 g/dL (32.0-37.0); MCV 94.7 FL (80.0-97.0); Mean Platelet Volume 11.7 FL (9.5-12.2); NRBC Per 100 WBC 0 X 10*3/uL (0.00-0.01); Platelet Count 265 X 10*3/uL (140-440); RBC 3.98 X 10*6/uL (4.40-5.60); RDW 13.7 % (11.5-14.5); WBC 12.46 X 10*3/uL (4.50-10.00)
[2024-12-03 08:03] LABS: Basophils # (A) 0.04 X 10*3/uL (0.00-0.10); Basophils % (A) 0.3 %; Eosinophils % (A) 0.8 %; Lymphocytes # (A) 1.24 X 10*3/uL (0.90-5.00); Monocytes # (A) 0.98 X 10*3/uL (0.20-1.00); Monocytes % (A) 7.9 %; Neutrophils # (A) 10.02 X 10*3/uL (1.80-7.70); Neutrophils % (A) 80.4 %
[2024-12-03 08:17] LABS: Magnesium 1.5 mg/dL (1.5-2.4)
[2024-12-03 08:48] LABS: ALT 14 U/L (10-49); AST 26 U/L (14-35); Albumin 2.4 g/dL (3.8-4.9); Albumin/Globulin Ratio 0.69 Ratio (1.60-3.17); Alkaline Phosphatase 163 U/L (41-126); BUN/Creat Ratio <7.00 Ratio (12.00-20.00); Blood Urea Nitrogen <3.5 mg/dL (9.0-27.0); Calcium 8.1 mg/dL (8.7-10.3); Carbon Dioxide 23.5 mmol/L (21.6-31.8); Chloride 106 mmol/L (96-109); Globulin 3.5 g/dL (1.6-3.3); Glucose 139 mg/dL (70-110); Potassium 3.6 mmol/L (3.5-5.5); Sodium 140 mmol/L (135-145); Total Bilirubin 0.3 mg/dL (0.3-1.2); Total Protein 5.9 g/dL (6.2-8.2)
[2024-12-03 11:28] LABS: Glucose,Whole Blood 134 mg/dL (70-110)
--- NOTE | 2024-12-03 11:32 | P.PN ---
Subjective Progress Note Date: 12/03/24 Principal diagnosis: Aspiration, need for PEG tube Patient is seen and examined today as a follow-up. He underwent EGD yesterday with PEG tube placement. He tolerated procedure well. PEG tube currently in place. Plan is to start tube feedings this morning. Patient denies any abdominal pain, nausea or vomiting. Objective - Vital Signs Vital signs: Vital Signs Temp 98.4 F 12/03/24 00:13 Pulse 102 H 12/03/24 00:13 Resp 16 12/03/24 00:13 BP 120/70 12/03/24 00:13 Pulse Ox 90 L 12/03/24 00:13 FiO2 Intake & Output 12/02/24 12/03/24 12/03/24 18:59 06:59 18:59 Intake Total 1400 Output Total 2225 Balance -825 Weight 57.243 kg Intake: IV 100 Intake, IV Titration 1300 Amount D5-0.45% NaCl with KCl 1200 20Meq/l 1,000 ml @ 100 mls/hr IV .Q10H [facility] Rx#: [id number] Piperacillin-Tazobactam 3 100 .375 gm In Sodium Chloride 0.9% 100 ml @ 25 mls/hr IVPB Q8H [facility] Rx#: [id number] Oral 0 Output: Urine 2225 Other: Voiding Method External Catheter External Catheter - Exam General appearance: The patient is alert, oriented x 2, appears in no acute distress. HET: Head is normocephalic and atraumatic. Conjunctiva pink. Sclera anicteric. Neck: Supple without lymphadenopathy. Abdomen: Soft, nontender, nondistended. PEG tube in place, help loosen. No bleeding or drainage surrounding tube. Extremities: Normal skin color and turgor. Right [id number] amputation. Skin: No rashes, no jaundice Neurological: No focal deficits. Alert and oriented. - Labs CBC & Chem 7: 12/03/24 03:58 12/03/24 03:58 Labs: Abnormal Lab Results - Last 24 Hours (Table) 12/02/24 12/02/24 12/02/24 Range/Units 09:25 11:50 16:45 RBC 3.38 L (4.30-5.90) m/uL Hgb 9.9 L D (13.0-17.5) gm/dL Hct 31.3 L (39.0-53.0) % POC Glucose (mg/dL) 131 H 135 H (70-110) mg/dL 12/02/24 12/03/24 Range/Units 20:37 06:19 RBC (4.30-5.90) m/uL Hgb (13.0-17.5) gm/dL Hct (39.0-53.0) % POC Glucose (mg/dL) 254 H 170 H (70-110) mg/dL Assessment and Plan (1) Aspiration into airway Narrative/Plan: 74-year-old male with multiple comorbidities with significant peripheral vascular disease who has undergone revascularization and amputation for nonhealing wounds has been admitted for concerns for aspiration pneumonia. Patient underwent evaluation with speech therapy and barium swallow that showed aspiration with multiple consistencies. Concern is for ongoing aspiration unclear etiology, neurology is following for stroke workup. Patient is on antic oagulation will need to be discontinued prior to proceeding with EGD and PEG tube placement. Patient is status post EGD with PEG tube placement. Begin tube feedings per dietitian recommendations Current Visit: Yes Status: Acute Code(s): T17.908A - UNSP FB IN RESP TRACT, PART UNSP CAUSING OTH INJURY, INIT SNOMED Code(s): 550056891 (2) Current use of terminal operations supervisor anticoagulation Current Visit: Yes Status: Acute Code(s): Z79.01 - MANAGER CLIENT (CURRENT) USE OF ANTICOAGULANTS SNOMED Code(s): 441769988 (3) Diabetes Current Visit: Yes Status: Acute Code(s): E11.9 - TYPE 2 DIABETES MELLITUS WITHOUT COMPLICATIONS SNOMED Code(s): 41871855 (4) History of right above knee amputation Current Visit: Yes Status: Acute Code(s): Z89.611 - ACQUIRED ABSENCE OF R IGHT LEG ABOVE KNEE SNOMED Code(s): 389898713954758 (5) Pneumonia Current Visit: Yes Status: Acute Code(s): J18.9 - PNEUMONIA, UNSPECIFIED ORGANISM SNOMED Code(s): 097661980 (6) Altered mental status Current Visit: Yes Status: Acute Code(s): R41.82 - ALTERED MENTAL STATUS, UNSPECIFIED SNOMED Code(s): 148213485 Plan: 1. Continue symptomatic and supportive care 2. Keep n.p.o. per recommendations from speech therapy 3. May resume anticoagulation 4. Status post EGD and PEG tube placement 5. Consult to dietitian placed 6. May begin tube feedings per recommendations from dietitian 7. Rest of medical management per primary medical team Thank you for this consultation, enterology will sign off at this time. Dr. Aldair Munroe I agree with the dictator's note, documented as a scribe by Micki Franks.
--- NOTE | 2024-12-03 16:39 | P.PN ---
Subjective Progress Note Date: 12/03/24 HISTORY OF PRESENT ILLNESS: This is a 74-year-old male with a previous medical history significant for hy pertension and hypertensive Vascular disease, mixed hyperlipidemia, diabetes mellitus type 2, with diabetic polyneuropathy, history of severe peripheral artery occlusive disease, status post revascularization of the right tibial vessel because of a nonhealing right great toe osteomyelitis, he ended up going for right great toe amputation in the past, because of nonhealing he was gone for right above-knee amputation that was done by Dr. June on 11/12/2024 and the patient was sent back to [facility] for physical therapy rehabilitation, while he was at [facility] yesterday patient apparently has some trouble swallowing the food, apparently had choked on his food, he had an episode of increased shortn ess of breath, he woke up in the morning with increased shortness of breath, with oxygenation dropped to 78%, chest x-ray showed evidence of bibasilar infiltrates, he was sent to the ER for evaluation, he was found to have bibasilar infiltrate likely aspiration pneumonia likely gram-negative pneumonia, patient initially was started on Zithromax Rocephin that was taken off, he was placed on Zosyn I will add vancomycin with pharmacy to dose the peak and trough, sputum culture will be obtained, pulmonary consultation was obtained, continue with DuoNeb 3 mL nebulization 4 times every day, follow-up with the patient very closely, patient continues to have trev in the right above-knee amputation 11/28: Patient is laying down in bed in no apparent distress, he is not eating much, he is having difficulty swallowing, speech therapy consulted, patient will be switched to D5 half-normal saline with 40 KCl at 75 cc an hour, continue to follow-up with the patient very closely, continue vancomycin with pharmacy to dose its peak and trough, continue also Zosyn, sputum culture, blood culture, follow-up with the patient very closely continue DuoNeb nebulization 4 times every day, repeat chest x-ray in the next 24 hours, pulmonary is following as well 11/29: Patient sitting up in bed in no apparent distress, he is feeling better today, he continues to have issues with swallowing, speech therapy evaluate the patient at the bedside today will need to go for modified barium swallow today, continue IV vancomycin as well as Zosyn, repeated chest x-ray today still pending, follow-up with the patient very closely, continue nebulized treatment, continue oxygen support, we will follow-up with the patient very closely. 11/30: Patient was seen in consultation by speech therapy yesterday, underwent modified barium swallow that he failed drastically, it was recommended by the speech therapist for the patient to have evaluation by gastroenterology for PEG tube placement as the patient is not able to swallow very well, he does appear to have a silent aspiration, his repeated chest x-ray showed worsening pneumonia, will continue current IV antibiotic with Zosyn, pulmonary is following, gastroenterology consultation will be obtained for possible PEG tube placement, patient is okay with the PEG tube at this point in time, we will proceed with that 12/01: Patient is laying down in bed in no apparent distress, he continues to have significant pain in the left heel, he does appear to have a DTI in the left heel, I spoke with the nursing staff about floating his left heel, place left heel boot, and apply Optifoam and prior to that apply Skin-Prep daily, patient is not getting any distress at this point in time, he is getting D5 half-normal saline with 20 KCl in the IV at this point, we will continue with that, patient is scheduled to have a PEG tube placement tomorrow at noon, will follow-up with the patient very closely, keep the patient on nothing per mouth. 12/02: Patient underwent a peg tube placement that was done successfully by Dr. Munroe will restart tube feeding advance as tolerated, the plan is for the patient to go back to [facility] if he approved and a prior authorization get there tomorrow morning otherwise he will have to stay until Friday continue IV fluid resuscitation until the patient is at goal for his tube feeding. 12/03: Patient is laying down in bed in no apparent distress, he denies any chest pain, shortness of breath, he has no abdominal pain, his PEG tube is working very well, he is currently on 50 cc an hour through his PEG tube, we will continue with that, discontinue IV fluid at this point in time, try to monitor the patient for aspiration, we will continue with the current recommendation by the dietitian, physical therapy and Occupational Therapy to continue to work with the patient, the plan is for the patient to go back to [facility] hopefully on Friday. REVIEW OF SYSTEMS: Constitutional: No documented fever, no chills, no night sweats. No weight change. No weakness, fatigue or lethargy. No daytime sleepiness. EENT: No headache. No blurred vision or double vision, no loss of vision. No loss of Hearing, no ringing in the ears, no dizziness. No nasal drainage or congestion. No epistaxis. No sore throat. Lungs: positive for shortness of breath, occasional cough, minimal sputum production. No wheezing. Reports dyspnea with activity. Cardiovascular: No chest pain, no lower extremity edema. No palpitations. No paroxysmal nocturnal dyspnea. No orthopnea. No lightheadedness or dizziness. No syncopal episodes. Abdominal: Reports abdominal pain. No nausea, vomiting. No diarrhea. No constipation. No bloody or tarry stools reports loss of appetite. Genitourinary: No dysuria, increased frequency, urgency. No urinary retention. Musculoskeletal: No myalgias. positive for muscle weakness, positive for gait dysfunction, no frequent falls. No back pain. No neck pain. Integumentary: Right above-knee amputation wound with trev in place, no lesions. No rash or pruritus. No unusual bruising. No change in hair or nails. Neurologic: No aphasia. No facial droop. No change in mentation. No head injury. No headache. No paralysis. No paresthesia. Psychiatric: positive for depression. No anxiety. No mood swings. Endocrine: positive for abnormal blood sugars. No weight change. PHYSICAL EXAMINATION: General: 74-year-old male laying down in bed in no apparent distress. HEENT: Head is atraumatic, normocephalic, pupils were equal round reactive to light and recommendation, extraocular muscle movement were intact, sclera nonicteric, conjunctivae were pale, mucous membranes of the mouth are somewhat dry. Neck: Supple, no JVP, normal carotid upstroke bilaterally, no lymphadenopathy. Chest: Decreased breath sounds at the bases, few rhonchi, minimal expiratory wheezes, no chest wall tenderness, no intercostal retractions. Heart: First heart sound is normal, second heart sounds normal there is systolic ejection murmur 2 over systolic in the left sternal border. Abdomen: Soft, nontender, nondistended, positive bowel sounds, there is a PEG tube in place. Extremities: There is right above-knee amputation with removal of trev., left lower extremity with second and fifth digit amputation, significant dryness, dorsalis place in the left side p+1. There is left heel DTI. Neurologic examination: Patient is awake alert and oriented x3, cranial nerves II-12 appear grossly intact, muscle power were 3 out of 5 in upper extremities and 2 out of 5 in left lower extremity ASSESSMENT AND PLAN: 1. Bilateral aspiration pneumonia with sepsis. Continue current treatment plan, continue patient on Zosyn 3.375 g IV piggyback every 8 hours, continue to monitor the patient very closely pulmonary medicine is following. 2. Postoperative day #1 status post PEG tube placement. Continue local care, continue tube feeding as per dietitian, patient is currently on 50 cc an hour, discontinue IV fluid, monitor for residual. 3. Hypertension and hypertensive cardiovascular disease. Start the patient back on metoprolol to tartrate 50 mg per PEG tube twice every day, monitor the patient blood pressure very closely. 4. Mixed hyperlipidemia. Continue patient on atorvastatin 40 mg once every day, monitor the patient with panel, keep LDL 55-70. 5. Diabetes mellitus type 2 with recurrent hypoglycemia. We will continue with a sliding scale insulin, continue patient on Farxiga 10 mg once every day. 6. Severe PAD status post right above-knee amputation . Patient is currently on atorvastatin 40 mg once every day, as well as Xarelto 2.5 mg twice every day through the PEG tube. 7. History of left basal ganglia infarct. Continue patient on aspirin 81 g once every day, atorvastatin 40 mg once every day, for secondary stroke prevention, tight control of diabetes. 8. History of COPD. Continue patient on DuoNeb 3 mL nebulization 4 times every day, oxygen support as needed. 9. Depression continue patient on mirtazapine 7.5 mg orally once at bedtime. 10. Medical debility. Continue with physical therapy evaluation. 11. DVT prophylaxis. Resume Xarelto 2.5 mg per PEG tube twice every day. 12. GI prophylaxis. Continue patient on Protonix 40 mg per PEG tube once every day. 13. DTI left heel continue with Skin-Prep, continue with local care, continue with tube feeding. 14. Plan for [place] with PEG tube feeding when the patient is tolerating tube feeding well and prior authorization is achieved. 15. Overall prognosis is guarded. Objective - Vital Signs Vital signs: Vital Signs Temp 97.4 F L 12/03/24 08:22 Pulse 97 12/03/24 08:22 Resp 20 12/03/24 08:22 BP 124/77 12/03/24 08:22 Pulse Ox 90 L 12/03/24 08:22 FiO2 Intake & Output 12/02/24 12/03/24 12/03/24 18:59 06:59 18:59 Intake Total 1400 120 Output Total 2225 400 Balance -825 -280 Weight 57.243 kg Intake: IV 100 Intake, IV Titration 1300 Amount D5-0.45% NaCl with KCl 1200 20Meq/l 1,000 ml @ 100 mls/hr IV .Q10H [facility] Rx#: [id number] Piperacillin-Tazobactam 3 100 .375 gm In Sodium Chloride 0.9% 100 ml @ 25 mls/hr IVPB Q8H [facility] Rx#: [id number] Oral 0 120 Output: Urine 2225 400 Other: Voiding Method External Catheter External Catheter External Catheter - Labs CBC & Chem 7: 12/03/24 03:58 12/03/24 03:58 Labs: Abnormal Lab Results - Last 24 Hours (Table) 12/02/24 12/02/24 12/02/24 Range/Units 11:50 16:45 20:37 WBC (4.50-10.00) X 10*3/uL RBC (4.40-5.60) X 10*6/uL Hgb (13.0-17.0) g/dL Hct (39.6-50.0) % MCHC (32.0-37.0) g/dL Immature Gran # (0.00-0.04) X 10*3/uL Neutrophils # (1.80-7.70) X 10*3/uL BUN (9.0-27.0) mg/dL Creatinine (0.6-1.5) mg/dL BUN/Creatinine Ratio (12.00-20.00) Ratio Glucose (70-110) mg/dL POC Glucose (mg/dL) 131 H 135 H 254 H (70-110) mg/dL Calcium (8.7-10.3) mg/dL Alkaline Phosphatase (41-126) U/L Total Protein (6.2-8.2) g/dL Albumin (3.8-4.9) g/dL Globulin (1.6-3.3) g/dL Albumin/Globulin Ratio (1.60-3.17) Ratio 12/03/24 12/03/24 12/03/24 Range/Units 03:58 03:58 06:19 WBC 12.46 H (4.50-10.00) X 10*3/uL RBC 3.98 L (4.40-5.60) X 10*6/uL Hgb 11.5 L (13.0-17.0) g/dL Hct 37.7 L (39.6-50.0) % MCHC 30.5 L (32.0-37.0) g/dL Immature Gran # 0.08 H (0.00-0.04) X 10*3/uL Neutrophils # 10.02 H (1.80-7.70) X 10*3/uL BUN <3.5 L (9.0-27.0) mg/dL Creatinine 0.5 L (0.6-1.5) mg/dL BUN/Creatinine Ratio <7.00 L (12.00-20.00) Ratio Glucose 139 H (70-110) mg/dL POC Glucose (mg/dL) 170 H (70-110) mg/dL Calcium 8.1 L (8.7-10.3) mg/dL Alkaline Phosphatase 163 H (41-126) U/L Total Protein 5.9 L (6.2-8.2) g/dL Albumin 2.4 L (3.8-4.9) g/dL Globulin 3.5 H (1.6-3.3) g/dL Albumin/Globulin Ratio 0.69 L (1.60-3.17) Ratio
[2024-12-03 17:06] LABS: Glucose,Whole Blood 165 mg/dL (70-110)
[2024-12-03] MEDS: METOPROLOL TARTRATE 50 MG TAB PEG/G-TUBE SCH (20:34)
[2024-12-03 20:59] LABS: Glucose,Whole Blood 131 mg/dL (70-110)
[2024-12-04] MEDS: ACETAMINOPHEN TAB 325 MG TAB PO PRN (05:28)
[2024-12-04 06:36] LABS: Glucose,Whole Blood 176 mg/dL (70-110)
--- NOTE | 2024-12-04 06:51 | XR ---
EXAMINATION TYPE: XR chest 1V DATE OF EXAM: 12/04/2024 CLINICAL INDICATION: Male, 74 years old with history of Bilateral Pneumonia, progress study. TECHNIQUE: Single AP portable upright view of the chest is obtained. COMPARISON: Chest x-ray from 5 days earlier FINDINGS: Improved aeration left lung base. Some worsening of the right basilar opacity. Cardiac hoang houette size is stable and upper limits of normal. Upper lungs remain clear. Osseous structures are i ntact. IMPRESSION: Improved/resolved left basilar opacity. Worsening right basilar acute infiltrate and/or a telectasis and likely small right pleural effusion. [facility], , 12/04/2024 6:49 AM
--- NOTE | 2024-12-04 09:17 | P.PN ---
Subjective Progress Note Date: 12/04/24 HISTORY OF PRESENT ILLNESS: This is a 74-year-old male with a previous medical history significant for hy pertension and hypertensive Vascular disease, mixed hyperlipidemia, diabetes mellitus type 2, with diabetic polyneuropathy, history of severe peripheral artery occlusive disease, status post revascularization of the right tibial vessel because of a nonhealing right great toe osteomyelitis, he ended up going for right great toe amputation in the past, because of nonhealing he was gone for right above-knee amputation that was done by Dr. June on 11/12/2024 and the patient was sent back to [facility] for physical therapy rehabilitation, while he was at [facility] yesterday patient apparently has some trouble swallowing the food, apparently had choked on his food, he had an episode of increased shortn ess of breath, he woke up in the morning with increased shortness of breath, with oxygenation dropped to 78%, chest x-ray showed evidence of bibasilar infiltrates, he was sent to the ER for evaluation, he was found to have bibasilar infiltrate likely aspiration pneumonia likely gram-negative pneumonia, patient initially was started on Zithromax Rocephin that was taken off, he was placed on Zosyn I will add vancomycin with pharmacy to dose the peak and trough, sputum culture will be obtained, pulmonary consultation was obtained, continue with DuoNeb 3 mL nebulization 4 times every day, follow-up with the patient very closely, patient continues to have trev in the right above-knee amputation 11/28: Patient is laying down in bed in no apparent distress, he is not eating much, he is having difficulty swallowing, speech therapy consulted, patient will be switched to D5 half-normal saline with 40 KCl at 75 cc an hour, continue to follow-up with the patient very closely, continue vancomycin with pharmacy to dose its peak and trough, continue also Zosyn, sputum culture, blood culture, follow-up with the patient very closely continue DuoNeb nebulization 4 times every day, repeat chest x-ray in the next 24 hours, pulmonary is following as well 11/29: Patient sitting up in bed in no apparent distress, he is feeling better today, he continues to have issues with swallowing, speech therapy evaluate the patient at the bedside today will need to go for modified barium swallow today, continue IV vancomycin as well as Zosyn, repeated chest x-ray today still pending, follow-up with the patient very closely, continue nebulized treatment, continue oxygen support, we will follow-up with the patient very closely. 11/30: Patient was seen in consultation by speech therapy yesterday, underwent modified barium swallow that he failed drastically, it was recommended by the speech therapist for the patient to have evaluation by gastroenterology for PEG tube placement as the patient is not able to swallow very well, he does appear to have a silent aspiration, his repeated chest x-ray showed worsening pneumonia, will continue current IV antibiotic with Zosyn, pulmonary is following, gastroenterology consultation will be obtained for possible PEG tube placement, patient is okay with the PEG tube at this point in time, we will proceed with that 12/01: Patient is laying down in bed in no apparent distress, he continues to have significant pain in the left heel, he does appear to have a DTI in the left heel, I spoke with the nursing staff about floating his left heel, place left heel boot, and apply Optifoam and prior to that apply Skin-Prep daily, patient is not getting any distress at this point in time, he is getting D5 half-normal saline with 20 KCl in the IV at this point, we will continue with that, patient is scheduled to have a PEG tube placement tomorrow at noon, will follow-up with the patient very closely, keep the patient on nothing per mouth. 12/02: Patient underwent a peg tube placement that was done successfully by Dr. Munroe will restart tube feeding advance as tolerated, the plan is for the patient to go back to [facility] if he approved and a prior authorization get there tomorrow morning otherwise he will have to stay until Friday continue IV fluid resuscitation until the patient is at goal for his tube feeding. 12/03: Patient is laying down in bed in no apparent distress, he denies any chest pain, shortness of breath, he has no abdominal pain, his PEG tube is working very well, he is currently on 50 cc an hour through his PEG tube, we will continue with that, discontinue IV fluid at this point in time, try to monitor the patient for aspiration, we will continue with the current recommendation by the dietitian, physical therapy and Occupational Therapy to continue to work with the patient, the plan is for the patient to go back to [facility] hopefully on Friday. 12/04: Patient is laying down in bed in no apparent distress, he is tolerating his tube feeding very well, he has been started back on his medication through the tube feeding, he has no chest pain or shortness of breath, he has no abdominal pain, nausea vomiting or diarrhea, his residual is well-controlled, continue current treatment plan, we are awaiting the prior authorization for the patient to be transferred back to [facility] hopefully on Friday. REVIEW OF SYSTEMS: Constitutional: No documented fever, no chills, no night sweats. No weight change. No weakness, fatigue or lethargy. No daytime sleepiness. EENT: No headache. No blurred vision or double vision, no loss of vision. No loss of Hearing, no ringing in the ears, no dizziness. No nasal drainage or congestion. No epistaxis. No sore throat. Lungs: positive for shortness of breath, occasional cough, minimal sputum production. No wheezing. Reports dyspnea with activity. Cardiovascular: No chest pain, no lower extremity edema. No palpitations. No paroxysmal nocturnal dyspnea. No orthopnea. No lightheadedness or dizziness. No syncopal episodes. Abdominal: Reports abdominal pain. No nausea, vomiting. No diarrhea. No constipation. No bloody or tarry stools reports loss of appetite. Genitourinary: No dysuria, increased frequency, urgency. No urinary retention. Musculoskeletal: No myalgias. positive for muscle weakness, positive for gait dysfunction, no frequent falls. No back pain. No neck pain. Integumentary: Right above-knee amputation wound with trev in place, no lesions. No rash or pruritus. No unusual bruising. No change in hair or nails. Neurologic: No aphasia. No facial droop. No change in mentation. No head injury. No headache. No paralysis. No paresthesia. Psychiatric: positive for depression. No anxiety. No mood swings. Endocrine: positive for abnormal blood sugars. No weight change. PHYSICAL EXAMINATION: General: 74-year-old male laying down in bed in no apparent distress. HEENT: Head is atraumatic, normocephalic, pupils were equal round reactive to light and recommendation, extraocular muscle movement were intact, sclera nonicteric, conjunctivae were pale, mucous membranes of the mouth are somewhat dry. Neck: Supple, no JVP, normal carotid upstroke bilaterally, no lymphadenopathy. Chest: Decreased breath sounds at the bases, few rhonchi, minimal expiratory wheezes, no chest wall tenderness, no intercostal retractions. Heart: First heart sound is normal, second heart sounds normal there is systolic ejection murmur 2 over systolic in the left sternal border. Abdomen: Soft, nontender, nondistended, positive bowel sounds, there is a PEG tube in place. Extremities: There is right above-knee amputation with removal of trev., left lower extremity with second and fifth digit amputation, significant dryness, dorsalis place in the left side p+1. There is left heel DTI. Neurologic examination: Patient is awake alert and oriented x3, cranial nerves II-12 appear grossly intact, muscle power were 3 out of 5 in upper extremities and 2 out of 5 in left lower extremity ASSESSMENT AND PLAN: 1. Bilateral aspiration pneumonia with sepsis. Continue current treatment plan, continue patient on Zosyn 3.375 g IV piggyback every 8 hours, continue to monitor the patient very closely pulmonary medicine is following. 2. Postoperative day #2 status post PEG tube placement. Continue local care, continue tube feeding as per dietitian, patient is currently on 50 cc an hour, discontinue IV fluid, monitor for residual. 3. Hypertension and hypertensive cardiovascular disease. Start the patient back on metoprolol to tartrate 50 mg per PEG tube twice every day, monitor the patient blood pressure very closely. 4. Mixed hyperlipidemia. Continue patient on atorvastatin 40 mg once every day, monitor the patient with panel, keep LDL 55-70. 5. Diabetes mellitus type 2 with recurrent hypoglycemia. We will continue with a sliding scale insulin, continue patient on Farxiga 10 mg once every day. 6. Severe PAD status post right above-knee amputation . Patient is currently on atorvastatin 40 mg once every day, as well as Xarelto 2.5 mg twice every day through the PEG tube. 7. History of left basal ganglia infarct. Continue patient on aspirin 81 g once every day, atorvastatin 40 mg once every day, for secondary stroke pre vention, tight control of diabetes. 8. History of COPD. Continue patient on DuoNeb 3 mL nebulization 4 times every day, oxygen support as needed. 9. Depression continue patient on mirtazapine 7.5 mg orally once at bedtime. 10. Medical debility. Continue with physical therapy evaluation. 11. DVT prophylaxis. Resume Xarelto 2.5 mg per PEG tube twice every day. 12. GI prophylaxis. Continue patient on Protonix 40 mg per PEG tube once every day. 13. DTI left heel continue with Skin-Prep, continue with local care, continue with tube feeding. 14. Plan for [place] with PEG tube feeding when the patient is tolerating tube feeding well and prior authorization is achieved. 15. Overall prognosis is guarded. 16. Called his daughter Zhang and updated about his current condition. Recommended for the patient to be DNR. Objective - Vital Signs Vital signs: Vital Signs Temp 100.5 F H 12/04/24 02:20 Pulse 92 12/04/24 02:20 Resp 15 12/04/24 02:20 BP 119/61 12/04/24 02:20 Pulse Ox 93 L 12/04/24 02:20 FiO2 Intake & Output 12/03/24 12/04/24 12/04/24 18:59 06:59 18:59 Intake Total 120 Output Total 900 Balance -780 Weight 62 kg Intake: Oral 120 Output: Urine 900 Other: Voiding Method External Catheter External Catheter # Bowel Movements 1 - Labs CBC & Chem 7: 12/04/24 04:42 12/04/24 04:42 Labs: Abnormal Lab Results - Last 24 Hours (Table) 12/03/24 12/03/24 12/03/24 Range/Units 03:58 11:26 17:05 BUN <3.5 L (9.0-27.0) mg/dL Creatinine 0.5 L (0.6-1.5) mg/dL BUN/Creatinine Ratio <7.00 L (12.00-20.00) Ratio Glucose 139 H (70-110) mg/dL POC Glucose (mg/dL) 134 H 165 H (70-110) mg/dL Calcium 8.1 L (8.7-10.3) mg/dL Alkaline Phosphatase 163 H (41-126) U/L Total Protein 5.9 L (6.2-8.2) g/dL Albumin 2.4 L (3.8-4.9) g/dL Globulin 3.5 H (1.6-3.3) g/dL Albumin/Globulin Ratio 0.69 L (1.60-3.17) Ratio 12/03/24 12/04/24 Range/Units 20:57 06:34 BUN (9.0-27.0) mg/dL Creatinine (0.6-1.5) mg/dL BUN/Creatinine Ratio (12.00-20.00) Ratio Glucose (70-110) mg/dL POC Glucose (mg/dL) 131 H 176 H (70-110) mg/dL Calcium (8.7-10.3) mg/dL Alkaline Phosphatase (41-126) U/L Total Protein (6.2-8.2) g/dL Albumin (3.8-4.9) g/dL Globulin (1.6-3.3) g/dL Albumin/Globulin Ratio (1.60-3.17) Ratio Microbiology - Last 24 Hours (Table) 11/28/24 11:33 Blood Culture - Final Blood
[2024-12-04 09:58] LABS: Basophils # (A) 0.04 X 10*3/uL (0.00-0.10); Basophils % (A) 0.3 %; Eosinophils # (A) 0.09 X 10*3/uL (0.04-0.35); Eosinophils % (A) 0.7 %; HCT 32.5 % (39.6-50.0); Lymphocytes # (A) 1.25 X 10*3/uL (0.90-5.00); Lymphocytes % (A) 9.9 %; MCH 29.4 pg (27.0-32.0); MCHC 30.8 g/dL (32.0-37.0); MCV 95.6 FL (80.0-97.0); Mean Platelet Volume 11.7 FL (9.5-12.2); Monocytes # (A) 0.85 X 10*3/uL (0.20-1.00); Monocytes % (A) 6.8 %; NRBC Per 100 WBC 0 X 10*3/uL (0.00-0.01); Neutrophils # (A) 10.29 X 10*3/uL (1.80-7.70); Neutrophils % (A) 81.7 %; Platelet Count 269 X 10*3/uL (140-440); RDW 14.2 % (11.5-14.5); WBC 12.59 X 10*3/uL (4.50-10.00)
[2024-12-04 10:33] LABS: ALT 16 U/L (10-49); AST 27 U/L (14-35); Albumin 2.2 g/dL (3.8-4.9); Albumin/Globulin Ratio 0.71 Ratio (1.60-3.17); Alkaline Phosphatase 193 U/L (41-126); Blood Urea Nitrogen 7.7 mg/dL (9.0-27.0); Carbon Dioxide 23.1 mmol/L (21.6-31.8); Chloride 112 mmol/L (96-109); Globulin 3.1 g/dL (1.6-3.3); Glucose 139 mg/dL (70-110); Potassium 3.8 mmol/L (3.5-5.5); Sodium 144 mmol/L (135-145); Total Bilirubin 0.3 mg/dL (0.3-1.2); Total Protein 5.3 g/dL (6.2-8.2)
[2024-12-04 11:54] LABS: Glucose,Whole Blood 129 mg/dL (70-110)
[2024-12-04 16:54] LABS: Glucose,Whole Blood 223 mg/dL (70-110)
[2024-12-04 21:10] LABS: Glucose,Whole Blood 112 mg/dL (70-110)
[2024-12-05 04:32] LABS: ALT 15 U/L (4-49); AST 27 U/L (17-59); African American GFR (CKD) >90 (>60 ml/min/1.73 sqM); Albumin 2.2 g/dL (3.5-5.0); Albumin/Globulin Ratio 0.7; Alkaline Phosphatase 205 U/L (38-126); Anion Gap 6 mmol/L; Blood Urea Nitrogen 16 mg/dL (9-20); Calcium 8.2 mg/dL (8.4-10.2); Carbon Dioxide 22 mmol/L (22-30); Chloride 112 mmol/L (98-107); Globulin 3.2 g/dL; Glucose 122 mg/dL (74-99); Non-African American GFR(CKD) >90 (>60 ml/min/1.73 sqM); Sodium 140 mmol/L (137-145); Total Bilirubin 0.4 mg/dL (0.2-1.3); Total Protein 5.4 g/dL (6.3-8.2)
[2024-12-05 06:31] LABS: Glucose,Whole Blood 150 mg/dL (70-110)
[2024-12-05] MEDS: ZINC OXIDE PASTE (Z-GUARD) 1 APPLIC TOPICAL PRN (09:17)
[2024-12-05 09:32] LABS: Basophils # (A) 0.03 X 10*3/uL (0.00-0.10); Basophils % (A) 0.2 %; Eosinophils # (A) 0.35 X 10*3/uL (0.04-0.35); Eosinophils % (A) 2.6 %; HCT 33.7 % (39.6-50.0); Lymphocytes % (A) 10.3 %; MCHC 29.7 g/dL (32.0-37.0); MCV 97.7 FL (80.0-97.0); Mean Platelet Volume 11.8 FL (9.5-12.2); Monocytes # (A) 0.68 X 10*3/uL (0.20-1.00); NRBC Per 100 WBC 0 X 10*3/uL (0.00-0.01); Neutrophils # (A) 11.12 X 10*3/uL (1.80-7.70); Neutrophils % (A) 81.4 %; Platelet Count 244 X 10*3/uL (140-440); RBC 3.45 X 10*6/uL (4.40-5.60); RDW 14.4 % (11.5-14.5); WBC 13.65 X 10*3/uL (4.50-10.00)
[2024-12-05] MEDS ORDERED: HYDROcodone/APAP 5-325MG 1 EACH TAB PO PRN (09:36)
--- NOTE | 2024-12-05 10:46 | P.PN ---
Subjective Progress Note Date: 12/05/24 HISTORY OF PRESENT ILLNESS: This is a 74-year-old male with a previous medical history significant for hy pertension and hypertensive Vascular disease, mixed hyperlipidemia, diabetes mellitus type 2, with diabetic polyneuropathy, history of severe peripheral artery occlusive disease, status post revascularization of the right tibial vessel because of a nonhealing right great toe osteomyelitis, he ended up going for right great toe amputation in the past, because of nonhealing he was gone for right above-knee amputation that was done by Dr. June on 11/12/2024 and the patient was sent back to [facility] for physical therapy rehabilitation, while he was at [facility] yesterday patient apparently has some trouble swallowing the food, apparently had choked on his food, he had an episode of increased shortn ess of breath, he woke up in the morning with increased shortness of breath, with oxygenation dropped to 78%, chest x-ray showed evidence of bibasilar infiltrates, he was sent to the ER for evaluation, he was found to have bibasilar infiltrate likely aspiration pneumonia likely gram-negative pneumonia, patient initially was started on Zithromax Rocephin that was taken off, he was placed on Zosyn I will add vancomycin with pharmacy to dose the peak and trough, sputum culture will be obtained, pulmonary consultation was obtained, continue with DuoNeb 3 mL nebulization 4 times every day, follow-up with the patient very closely, patient continues to have trev in the right above-knee amputation 11/28: Patient is laying down in bed in no apparent distress, he is not eating much, he is having difficulty swallowing, speech therapy consulted, patient will be switched to D5 half-normal saline with 40 KCl at 75 cc an hour, continue to follow-up with the patient very closely, continue vancomycin with pharmacy to dose its peak and trough, continue also Zosyn, sputum culture, blood culture, follow-up with the patient very closely continue DuoNeb nebulization 4 times every day, repeat chest x-ray in the next 24 hours, pulmonary is following as well 11/29: Patient sitting up in bed in no apparent distress, he is feeling better today, he continues to have issues with swallowing, speech therapy evaluate the patient at the bedside today will need to go for modified barium swallow today, continue IV vancomycin as well as Zosyn, repeated chest x-ray today still pending, follow-up with the patient very closely, continue nebulized treatment, continue oxygen support, we will follow-up with the patient very closely. 11/30: Patient was seen in consultation by speech therapy yesterday, underwent modified barium swallow that he failed drastically, it was recommended by the speech therapist for the patient to have evaluation by gastroenterology for PEG tube placement as the patient is not able to swallow very well, he does appear to have a silent aspiration, his repeated chest x-ray showed worsening pneumonia, will continue current IV antibiotic with Zosyn, pulmonary is following, gastroenterology consultation will be obtained for possible PEG tube placement, patient is okay with the PEG tube at this point in time, we will proceed with that 12/01: Patient is laying down in bed in no apparent distress, he continues to have significant pain in the left heel, he does appear to have a DTI in the left heel, I spoke with the nursing staff about floating his left heel, place left heel boot, and apply Optifoam and prior to that apply Skin-Prep daily, patient is not getting any distress at this point in time, he is getting D5 half-normal saline with 20 KCl in the IV at this point, we will continue with that, patient is scheduled to have a PEG tube placement tomorrow at noon, will follow-up with the patient very closely, keep the patient on nothing per mouth. 12/02: Patient underwent a peg tube placement that was done successfully by Dr. Munroe will restart tube feeding advance as tolerated, the plan is for the patient to go back to [facility] if he approved and a prior authorization get there tomorrow morning otherwise he will have to stay until Friday continue IV fluid resuscitation until the patient is at goal for his tube feeding. 12/03: Patient is laying down in bed in no apparent distress, he denies any chest pain, shortness of breath, he has no abdominal pain, his PEG tube is working very well, he is currently on 50 cc an hour through his PEG tube, we will continue with that, discontinue IV fluid at this point in time, try to monitor the patient for aspiration, we will continue with the current recommendation by the dietitian, physical therapy and Occupational Therapy to continue to work with the patient, the plan is for the patient to go back to [facility] hopefully on Friday. 12/04: Patient is laying down in bed in no apparent distress, he is tolerating his tube feeding very well, he has been started back on his medication through the tube feeding, he has no chest pain or shortness of breath, he has no abdominal pain, nausea vomiting or diarrhea, his residual is well-controlled, continue current treatment plan, we are awaiting the prior authorization for the patient to be transferred back to [facility] hopefully on Friday. 12/05: Patient is more awake and more alert today, he continues to have significant amount of diarrhea at this time, he is continuing to have a significant excoriation to the buttock area continue to use the zinc oxide, continue to turn the patient every 2 hours, monitor the patient symptoms very closely, patient is tolerating tube feeding very well, I spoke with his daughter yesterday and she is going to sign DO NOT RESUSCITATE at this point in time, I will discontinue Zosyn at this point in time as the patient has been on Zosyn for quite some time REVIEW OF SYSTEMS: Constitutional: No documented fever, no chills, no night sweats. No weight change. No weakness, fatigue or lethargy. No daytime sleepiness. EENT: No headache. No blurred vision or double vision, no loss of vision. No loss of Hearing, no ringing in the ears, no dizziness. No nasal drainage or congestion. No epistaxis. No sore throat. Lungs: positive for shortness of breath, occasional cough, minimal sputum production. No wheezing. Reports dyspnea with activity. Cardiovascular: No chest pain, no lower extremity edema. No palpitations. No paroxysmal nocturnal dyspnea. No orthopnea. No lightheadedness or dizziness. No syncopal episodes. Abdominal: Reports abdominal pain. No nausea, vomiting. No diarrhea. No constipation. No bloody or tarry stools reports loss of appetite. Genitourinary: No dysuria, increased frequency, urgency. No urinary retention. Musculoskeletal: No myalgias. positive for muscle weakness, positive for gait dysfunction, no frequent falls. No back pain. No neck pain. Integumentary: Right above-knee amputation wound with trev in place, no lesions. No rash or pruritus. No unusual bruising. No change in hair or nails. Neurologic: No aphasia. No facial droop. No change in mentation. No head injury. No headache. No paralysis. No paresthesia. Psychiatric: positive for depression. No anxiety. No mood swings. Endocrine: positive for abnormal blood sugars. No weight change. PHYSICAL EXAMINATION: General: 74-year-old male laying down in bed in no apparent distress. HEENT: Head is atraumatic, normocephalic, pupils were equal round reactive to light and recommendation, extraocular muscle movement were intact, sclera nonicteric, conjunctivae were pale, mucous membranes of the mouth are somewhat dry. Neck: Supple, no JVP, normal carotid upstroke bilaterally, no lymphadenopathy. Chest: Decreased breath sounds at the bases, few rhonchi, minimal expiratory wheezes, no chest wall tenderness, no intercostal retractions. Heart: First heart sound is normal, second heart sounds normal there is systolic ejection murmur 2 over systolic in the left sternal border. Abdomen: Soft, nontender, nondistended, positive bowel sounds, there is a PEG tube in place. Extremities: There is right above-knee amputation with removal of trev., left lower extremity with second and fifth digit amputation, significant dryness, dorsalis place in the left side p+1. There is left heel DTI. Neurologic examination: Patient is awake alert and oriented x3, cranial nerves II-12 appear grossly intact, muscle power were 3 out of 5 in upper extremities and 2 out of 5 in left lower extremity ASSESSMENT AND PLAN: 1. Bilateral aspiration pneumonia with sepsis. Discontinue Zosyn follow the patient x-ray tomorrow morning. 2. Postoperative day #3 status post PEG tube placement. Continue local care, continue tube feeding as per dietitian, patient is currently on 50 cc an hour, 3. Hypertension and hypertensive cardiovascular disease. Start the patient back on metoprolol to tartrate 50 mg per PEG tube twice every day, monitor the patient blood pressure very closely. 4. Mixed hyperlipidemia. Continue patient on atorvastatin 40 mg once every day, monitor the patient with panel, keep LDL 55-70. 5. Diabetes mellitus type 2 with recurrent hypoglycemia. We will continue with a sliding scale insulin, continue patient on Farxiga 10 mg once every day. 6. Severe PAD status post right above-knee amputation . Patient is currently on atorvastatin 40 mg once every day, as well as Xarelto 2.5 mg twice every day through the PEG tube. 7. History of left basal ganglia infarct. Continue patient on aspirin 81 g once every day, atorvastatin 40 mg once every day, for secondary stroke pr evention, tight control of diabetes. 8. History of COPD. Continue patient on DuoNeb 3 mL nebulization 4 times every day, oxygen support as needed. 9. Depression continue patient on mirtazapine 7.5 mg orally once at bedtime. 10. Medical debility. Continue with physical therapy evaluation. 11. DVT prophylaxis. Resume Xarelto 2.5 mg per PEG tube twice every day. 12. GI prophylaxis. Continue patient on Protonix 40 mg per PEG tube once every day. 13. DTI left heel continue with Skin-Prep, continue with local care, continue with tube feeding. 14. Plan for [place] with PEG tube feeding when the patient is tolerating tube feeding well and prior authorization is achieved. 15. Overall prognosis is guarded. 16. Patient is no CODE STATUS he is daughter will sign today. Objective - Vital Signs Vital signs: Vital Signs Temp 98.2 F 12/05/24 08:17 Pulse 65 12/05/24 08:17 Resp 16 12/05/24 08:17 BP 115/70 12/05/24 08:17 Pulse Ox 99 12/05/24 08:17 FiO2 Intake & Output 12/04/24 12/05/24 12/05/24 18:59 06:59 18:59 Output Total 400 Balance -400 Output: Urine 400 Other: Voiding Method External Catheter External Catheter # Voids 1 1 # Bowel Movements 1 1 1 - Labs CBC & Chem 7: 12/05/24 06:00 12/05/24 06:00 Labs: Abnormal Lab Results - Last 24 Hours (Table) 12/04/24 12/04/24 12/04/24 Range/Units 04:42 04:42 11:43 WBC 12.59 H (4.50-10.00) X 10*3/uL RBC 3.40 L (4.40-5.60) X 10*6/uL Hgb 10.0 L (13.0-17.0) g/dL Hct 32.5 L (39.6-50.0) % MCV (80.0-97.0) FL MCHC 30.8 L (32.0-37.0) g/dL Immature Gran # 0.07 H (0.00-0.04) X 10*3/uL Neutrophils # 10.29 H (1.80-7.70) X 10*3/uL Chloride 112 H (96-109) mmol/L BUN 7.7 L (9.0-27.0) mg/dL Creatinine 0.5 L (0.6-1.5) mg/dL Glucose 139 H (70-110) mg/dL POC Glucose (mg/dL) 129 H (70-110) mg/dL Calcium 8.0 L (8.7-10.3) mg/dL Alkaline Phosphatase 193 H (41-126) U/L Total Protein 5.3 L (6.2-8.2) g/dL Albumin 2.2 L (3.8-4.9) g/dL Albumin/Globulin Ratio 0.71 L (1.60-3.17) Ratio 12/04/24 12/04/24 12/05/24 Range/Units 16:53 21:09 06:00 WBC 13.65 H (4.50-10.00) X 10*3/uL RBC 3.45 L (4.40-5.60) X 10*6/uL Hgb 10.0 L (13.0-17.0) g/dL Hct 33.7 L (39.6-50.0) % MCV 97.7 H (80.0-97.0) FL MCHC 29.7 L (32.0-37.0) g/dL Immature Gran # 0.07 H (0.00-0.04) X 10*3/uL Neutrophils # 11.12 H (1.80-7.70) X 10*3/uL Chloride (96-109) mmol/L BUN (9.0-27.0) mg/dL Creatinine (0.6-1.5) mg/dL Glucose (70-110) mg/dL POC Glucose (mg/dL) 223 H 112 H (70-110) mg/dL Calcium (8.7-10.3) mg/dL Alkaline Phosphatase (41-126) U/L Total Protein (6.2-8.2) g/dL Albumin (3.8-4.9) g/dL Albumin/Globulin Ratio (1.60-3.17) Ratio 12/05/24 12/05/24 Range/Units 06:00 06:30 WBC (4.50-10.00) X 10*3/uL RBC (4.40-5.60) X 10*6/uL Hgb (13.0-17.0) g/dL Hct (39.6-50.0) % MCV (80.0-97.0) FL MCHC (32.0-37.0) g/dL Immature Gran # (0.00-0.04) X 10*3/uL Neutrophils # (1.80-7.70) X 10*3/uL Chloride 112 H (96-109) mmol/L BUN (9.0-27.0) mg/dL Creatinine 0.44 L (0.6-1.5) mg/dL Glucose 122 H (70-110) mg/dL POC Glucose (mg/dL) 150 H (70-110) mg/dL Calcium 8.2 L (8.7-10.3) mg/dL Alkaline Phosphatase 205 H (41-126) U/L Total Protein 5.4 L (6.2-8.2) g/dL Albumin 2.2 L (3.8-4.9) g/dL Albumin/Globulin Ratio (1.60-3.17) Ratio
[2024-12-05 13:04] LABS: Glucose,Whole Blood 122 mg/dL (70-110)
[2024-12-05 16:54] LABS: Glucose,Whole Blood 115 mg/dL (70-110)
[2024-12-05 21:15] LABS: Glucose,Whole Blood 112 mg/dL (70-110)
[2024-12-06 02:33] VITALS: RESP 16
[2024-12-06 06:06] LABS: Glucose,Whole Blood 116 mg/dL (70-110)
[2024-12-06 08:39] LABS: Basophils # (A) 0.03 X 10*3/uL (0.00-0.10); Basophils % (A) 0.2 %; Eosinophils # (A) 0.58 X 10*3/uL (0.04-0.35); Eosinophils % (A) 4.5 %; HCT 33.7 % (39.6-50.0); Lymphocytes # (A) 1.66 X 10*3/uL (0.90-5.00); Lymphocytes % (A) 12.8 %; MCHC 29.7 g/dL (32.0-37.0); MCV 97.7 FL (80.0-97.0); Mean Platelet Volume 12.4 FL (9.5-12.2); Monocytes # (A) 0.59 X 10*3/uL (0.20-1.00); Monocytes % (A) 4.6 %; NRBC Per 100 WBC 0.02 X 10*3/uL (0.00-0.01); Neutrophils # (A) 10.01 X 10*3/uL (1.80-7.70); Neutrophils % (A) 77.4 %; Platelet Count 270 X 10*3/uL (140-440); RBC 3.45 X 10*6/uL (4.40-5.60); RDW 14.2 % (11.5-14.5); WBC 12.93 X 10*3/uL (4.50-10.00)
[2024-12-06 08:51] LABS: ALT 17 U/L (10-49); AST 28 U/L (14-35); Albumin 2.5 g/dL (3.8-4.9); Albumin/Globulin Ratio 0.71 Ratio (1.60-3.17); Alkaline Phosphatase 218 U/L (41-126); BUN/Creat Ratio 48.75 Ratio (12.00-20.00); Blood Urea Nitrogen 19.5 mg/dL (9.0-27.0); Calcium 8.3 mg/dL (8.7-10.3); Carbon Dioxide 24.3 mmol/L (21.6-31.8); Chloride 113 mmol/L (96-109); Globulin 3.5 g/dL (1.6-3.3); Glucose 134 mg/dL (70-110); Potassium 4.4 mmol/L (3.5-5.5); Sodium 145 mmol/L (135-145); Total Bilirubin 0.2 mg/dL (0.3-1.2)
[2024-12-06 09:12] VITALS: BP 113/69; PULSE 85; TEMP 97.6
[2024-12-06] MEDS: PANTOPRAZOLE 40 MG TABLET PO SCH (09:30)
--- NOTE | 2024-12-06 10:01 | P.DS ---
Providers Date of admission: 11/26/24 18:52 Expected date of discharge: 12/06/24 Attending physician: Marco Kang Consults: 11/26/24 18:51 Consult Physician Routine Consulting Provider: Marti Abdullahi Consult Reason/Comments: pneumenia, sepsis Do you want consulting provider notified?: Yes 11/28/24 09:39 Consult Physician Routine Consulting Provider: Venancio Sullivan Consult Reason/Comments: Dysphagia/History of CVA Do you want consulting provider notified?: Yes 11/30/24 12:05 Consult Physician Routine Consulting Provider: Leonela Munroe Consult Reason/Comments: PEG insertion Do you want consulting provider notified?: Yes Primary care physician: Marco Kang [facility] Course: HISTORY OF PRESENT ILLNESS: This is a 74-year-old male with a previous medical history significant for hypertension and hypertensive Vascular disease, mixed hyperlipidemia, diabetes mellitus type 2, with diabetic polyneuropathy, history of severe peripheral artery occlusive disease, status post revascularization of the right tibial vessel because of a nonhealing right great toe osteomyelitis, he ended up going for right great toe amputation in the past, because of nonhealing he was gone for right above-knee amputation that was done by Dr. June on 11/12/2024 and the patient was sent back to [facility] for physical therapy rehabilitation, while he was at [facility] yesterday patient apparently has some trouble swallowing the food, apparently had choked on his food, he had an episode of increased shortness of breath, he woke up in the morning with increased shortness of breath, with oxygenation dropped to 78%, chest x-ray showed evidence of bibasilar infiltrates, he was sent to the ER for evaluation, he was found to have bibasilar infiltrate likely aspiration pneumonia likely gram-negative pneumonia, patient initially was started on Zithromax Rocephin that was taken off, he was placed on Zosyn I will add vancomycin with pharmacy to dose the peak and trough, sputum culture will be obtained, pulmonary consultation was obtained, continue with DuoNeb 3 mL nebulization 4 times every day, follow-up with the patient very closely, patient continues to have trev in the right above-knee amputation 11/28: Patient is laying down in bed in no apparent distress, he is not eating much, he is having difficulty swallowing, speech therapy consulted, patient will be switched to D5 half-normal saline with 40 KCl at 75 cc an hour, continue to follow-up with the patient very closely, continue vancomycin with pharmacy to dose its peak and trough, continue also Zosyn, sputum culture, blood culture, follow-up with the patient very closely continue DuoNeb nebulization 4 times every day, repeat chest x-ray in the next 24 hours, pulmonary is following as well 11/29: Patient sitting up in bed in no apparent distress, he is feeling better today, he continues to have issues with swallowing, speech therapy evaluate the patient at the bedside today will need to go for modified barium swallow today, continue IV vancomycin as well as Zosyn, repeated chest x-ray today still pending, follow-up with the patient very closely, continue nebulized treatment, continue oxygen support, we will follow-up with the patient very closely. 11/30: Patient was seen in consultation by speech therapy yesterday, underwent modified barium swallow that he failed drastically, it was recommended by the speech therapist for the patient to have evaluation by gastroenterology for PEG tube placement as the patient is not able to swallow very well, he does appear to have a silent aspiration, his repeated chest x-ray showed worsening pneumonia, will continue current IV antibiotic with Zosyn, pulmonary is following, gastroenterology consultation will be obtained for possible PEG tube placement, patient is okay with the PEG tube at this point in time, we will proceed with that 12/01: Patient is laying down in bed in no apparent distress, he continues to have significant pain in the left heel, he does appear to have a DTI in the left heel, I spoke with the nursing staff about floating his left heel, place left heel boot, and apply Optifoam and prior to that apply Skin-Prep daily, patient is not getting any distress at this point in time, he is getting D5 half-normal saline with 20 KCl in the IV at this point, we will continue with that, patient is scheduled to have a PEG tube placement tomorrow at noon, will follow-up with the patient very closely, keep the patient on nothing per mouth. 12/02: Patient underwent a peg tube placement that was done successfully by Dr. Munroe will restart tube feeding advance as tolerated, the plan is for the patient to go back to [facility] if he approved and a prior authorization get there tomorrow morning otherwise he will have to stay until Friday continue IV fluid resuscitation until the patient is at goal for his tube feeding. 12/03: Patient is laying down in bed in no apparent distress, he denies any chest pain, shortness of breath, he has no abdominal pain, his PEG tube is working very well, he is currently on 50 cc an hour through his PEG tube, we will continue with that, discontinue IV fluid at this point in time, try to monitor the patient for aspiration, we will continue with the current recommendation by the dietitian, physical therapy and Occupational Therapy to continue to work with the patient, the plan is for the patient to go back to [facility] hopefully on Friday. 12/04: Patient is laying down in bed in no apparent distress, he is tolerating his tube feeding very well, he has been started back on his medication through the tube feeding, he has no chest pain or shortness of breath, he has no abdominal pain, nausea vomiting or diarrhea, his residual is well-controlled, continue current treatment plan, we are awaiting the prior authorization for the patient to be transferred back to [facility] hopefully on Friday. 12/05: Patient is more awake and more alert today, he continues to have significant amount of diarrhea at this time, he is continuing to have a significant excoriation to the buttock area continue to use the zinc oxide, continue to turn the patient every 2 hours, monitor the patient symptoms very closely, patient is tolerating tube feeding very well, I spoke with his daughter yesterday and she is going to sign DO NOT RESUSCITATE at this point in time, I will discontinue Zosyn at this point in time as the patient has been on Zosyn for quite some time 12/06: Patient sitting up in bed in no apparent distress, he tolerates his tube feeding very well, his C. difficile is negative, patient's daughter made him DO NOT RESUSCITATE at this point in time, we will continue current treatment plan, I will prepare the patient discharge summary for the patient to be transferred back to [facility] later on this afternoon continue current physical therapy and Occupational Therapy continue current treatment plan, will follow-up the patient at [facility] in the next few days Discharge diagnoses: 1. Bilateral aspiration pneumonia with sepsis. 2. Postoperative day #4 status post PEG tube placement. 3. Hypertension and hypertensive cardiovascular disease. 4. Mixed hyperlipidemia. 5. Diabetes mellitus type 2 with recurrent hypoglycemia. 6. Severe PAD status post right above-knee amputation . 7. History of left basal ganglia infarct. 8. History of COPD. 9. Depression 10. Medical debility. 11. DTI left heel Patient Condition at Discharge: Serious Plan - Discharge Summary Discharge Rx Participant: Yes New Discharge Prescriptions: No Action Na Phos,M-B/Na Phos,Di-Ba [Fleet Adult] 133 ml RECTAL DAILY PRN PRN Reason: Constipation Magic Butt Paste 1 applic TOPICAL TID@0800,1200,1700 Acetaminophen [Tylenol Arthritis] 650 mg PO Q6H PRN PRN Reason: general discomfort INSULIN LISPRO (humaLOG) [humaLOG] See Protocol SQ TID@0700,1100,1600 Pantoprazole [Protonix] 40 mg PO DAILY@0600 Losartan [Cozaar] 12.5 mg PO DAILY@0800 Insulin Glargine,Hum.rec.anlog [Lantus Solostar Pen] 24 units SQ HS@2130 Dapagliflozin Propanediol [Farxiga] 10 mg PO DAILY@0800 Magnesium Hydroxide [Milk of Magnesia Concentrate] 7,200 mg PO DAILY PRN PRN Reason: Constipation Mighty Shake 1 dose PO TID@0800,1200,1700 Mucinex Fast Max Chest Congestion Ms Oral Liquid 600 mg PO BID@0800,1700 Ipratropium-Albuterol Nebulize [Duoneb 0.5 mg-3 mg/3 ml Soln] 3 ml INHALATION RT-Q6H PRN PRN Reason: Shortness Of Breath & Cough Mirtazapine 7.5 mg PO HS@2100 HYDROcodone/APAP 5-325MG [[place] 5-325] 1 tab PO Q4-6H PRN PRN Reason: Moderate Pain (Scale 4 To 6) bisacodyL [Dulcolax] 10 mg RECTAL DAILY PRN PRN Reason: Constipation Rivaroxaban [Xarelto] 2.5 mg PO BID@0800,1700 Nicotine 14Mg/24Hr Patch [Habitrol] 1 patch TRANSDERM DAILY@0800 Lidocaine 5% Cream 1 applic TOPICAL WE@0800 Atorvastatin [Lipitor] 40 mg PO DAILY@0800 Aspirin 81 mg PO DAILY@0800 Metoprolol Succinate (ER) [Toprol Xl] 50 mg PO DAILY@0800 Discharge Medication List Acetaminophen [Tylenol Arthritis] 650 mg PO Q6H PRN 11/10/24 [History] Aspirin 81 mg PO DAILY@0811/10/24 [History] Atorvastatin [Lipitor] 40 mg PO DAILY@0811/10/24 [History] Dapagliflozin Propanediol [Farxiga] 10 mg PO DAILY@0811/10/24 [History] INSULIN LISPRO (humaLOG) [humaLOG] See Protocol SQ TID@0700,1100,1600 11/10/24 [History] Insulin Glargine,Hum.rec.anlog [Lantus Solostar Pen] 24 units SQ HS@2130 11/10/24 [History] Lidocaine 5% Cream 1 applic TOPICAL WE@0811/10/24 [History] Losartan [Cozaar] 12.5 mg PO DAILY@0811/10/24 [History] Magic Butt Paste 1 applic TOPICAL TID@0800,1200,1700 11/10/24 [History] Magnesium Hydroxide [Milk of Magnesia Concentrate] 7,200 mg PO DAILY PRN 11/10/24 [History] Na Phos,M-B/Na Phos,Di-Ba [Fleet Adult] 133 ml RECTAL DAILY PRN 11/10/24 [History] Nicotine 14Mg/24Hr Patch [Habitrol] 1 patch TRANSDERM DAILY@0811/10/24 [ History] Pantoprazole [Protonix] 40 mg PO DAILY@0600 11/10/24 [History] Rivaroxaban [Xarelto] 2.5 mg PO BID@0800,1700 11/10/24 [History] bisacodyL [Dulcolax] 10 mg RECTAL DAILY PRN 11/10/24 [History] HYDROcodone/APAP 5-325MG [[place] 5-325] 1 tab PO Q4-6H PRN 11/26/24 [History] Ipratropium-Albuterol Nebulize [Duoneb 0.5 mg-3 mg/3 ml Soln] 3 ml INHALATION RT-Q6H PRN 11/26/24 [History] Metoprolol Succinate (ER) [Toprol Xl] 50 mg PO DAILY@0800 11/26/24 [History] Mighty Shake 1 dose PO TID@0800,1200,1700 11/26/24 [History] Mirtazapine 7.5 mg PO HS@2100 11/26/24 [History] Mucinex Fast Max Chest Congestion Ms Oral Liquid 600 mg PO BID@0800,1700 11/26/24 [History] Follow up Appointment(s)/Referral(s): Sudheer Lubin MD [STAFF PHYSICIAN] - 1-2 days
[2024-12-06 12:14] LABS: Glucose,Whole Blood 111 mg/dL (70-110)
[2024-12-06 13:47] VITALS: BMI 21.7
== END 2024-12-06 14:02 | DRG 871 ==
LOC: EC 14:23 → 4SSUR 18:52
PROVIDERS: ADMIT Internal Medicine; ATTEND Internal Medicine
PROC: 3E0G76Z Introduction of Nutritional Substance into Upper GI, Via Natural or Artificial Opening (ICD-10-PCS; principal; 2024-12-02 07:30)
PROC: 0DH63UZ Insertion of Feeding Device into Stomach, Percutaneous Approach (ICD-10-PCS; principal; 2024-12-02 07:30)
DX: A41.50 Gram-negative sepsis, unspecified (principal); G92.8 Other toxic encephalopathy; G93.41 Metabolic encephalopathy; J69.0 Pneumonitis due to inhalation of food and vomit; J15.69 Pneumonia due to other Gram-negative bacteria; J96.02 Acute respiratory failure with hypercapnia; J96.01 Acute respiratory failure with hypoxia; J44.0 Chronic obstructive pulmonary disease with (acute) lower respiratory infection; E11.42 Type 2 diabetes mellitus with diabetic polyneuropathy; F32.A Depression, unspecified; I11.9 Hypertensive heart disease without heart failure; I69.391 Dysphagia following cerebral infarction; R63.4 Abnormal weight loss; B37.0 Candidal stomatitis; I67.82 Cerebral ischemia; E11.51 Type 2 diabetes mellitus with diabetic peripheral angiopathy without gangrene; Z79.4 Long term (current) use of insulin; Z89.611 Acquired absence of right leg above knee; E11.65 Type 2 diabetes mellitus with hyperglycemia; R65.20 Severe sepsis without septic shock; Z66 Do not resuscitate; R13.10 Dysphagia, unspecified; F17.210 Nicotine dependence, cigarettes, uncomplicated; E78.2 Mixed hyperlipidemia; R53.81 Other malaise; S90.32XA Contusion of left foot, initial encounter; K08.9 Disorder of teeth and supporting structures, unspecified; H91.90 Unspecified hearing loss, unspecified ear; I44.30 Unspecified atrioventricular block; I25.10 Atherosclerotic heart disease of native coronary artery without angina pectoris; Z20.822 Contact with and (suspected) exposure to COVID-19; Z79.01 Long term (current) use of anticoagulants; Z79.82 Long term (current) use of aspirin; Z79.84 Long term (current) use of oral hypoglycemic drugs; Z79.899 Other long term (current) drug therapy; Z68.21 Body mass index [BMI] 21.0-21.9, adult; Z71.3 Dietary counseling and surveillance; Z89.411 Acquired absence of right great toe; Z87.11 Personal history of peptic ulcer disease
CPT/HCPCS: 36415; 43246; 70450; 71045; 71046; 74230; 80048; 80053; 80202; 81003; 83605; 83735; 84145; 84484; 85025; 85610; 85730; 87040; 87070; 87324; 87449; 87636; 93005; 94760; 96361; 96365; 96366; 96367; 99291